=== PATIENT | male | born 1995 | race African-American/Black ===

== ENCOUNTER 2016-12-03 06:42 | Inpatient (IN) | payer OTHER ==
[2016-12-03 06:58] VITALS: BMI 31.8
--- NOTE | 2016-12-03 07:16 | PDOC ---
History of Present Illness <Floresita Barker - Last Filed: 12/03/16 09:09> - History of Present Illness Initial Comments: 12/03/16 07:29 The pt is a 21 year old male with a significant PMH of cortical blindness, cerebral palsy, spastic quadriplegia, seizure disorder, reactive airway disease , YAKELIN, GERD, HTN, strabismus, scoliosis, nonverbal presents to ED brought by ambulance from [facility] for vomiting copious amount of undigested food and cough. He was found to be tachycardia 121. Upon arrival to ED his HR was 116, RR 18, no fever. History was taken from [facility] paper documentation. No family at bedsidebut his mother was contacted. The pt recently moved from [place], [place]. PCP: Dr. Bigg Aleman at [facility] [phone] Mother: Mackenzie Zarate work: [phone] <Marilee Scales - Last Filed: 12/04/16 13:36> - General Chief Complaint: Shortness of Breath Stated Complaint: POSSIBLE INFECTION Time Seen by Provider: 12/03/16 07:16 Past History <Floresita Barker - Last Filed: 12/03/16 09:09> - Psycho/Social/Smoking Cessation Hx Suicidal Ideation: No Smoking History: Unknown if ever smoked Have you smoked in the past 12 months: No Information on smoking cessation initiated: No Hx Alcohol Use: No Drug/Substance Use Hx: No <Marilee Scales - Last Filed: 12/04/16 13:36> - Past Medical History Allergies/Adverse Reactions: Allergies Allergy/AdvReac Type Severity Reaction Status Date / Time chloral hydrate Allergy Verified 12/03/16 09:01 piperacillin sodium Allergy Verified 12/03/16 09:01 [From Zosyn] tazobactam sodium Allergy Verified 12/03/16 09:01 [From Zosyn] Home Medications: Ambulatory Orders Albuterol 0.083% Nebulizer Martha [Ventolin 0.083%] 1 neb NEB QID PRN 12/03/16 Calcium Carbonate/Vitamin D3 [Calcium 600 + D3 Softgel] 1 each PO DAILY Clobetasol Propionate/Emoll [Clobetasol Emollient 0.05% Crm] 15 gm TP DAILY 01/14 Diazepam 2 mg PO TID 12/03/16 Diazepam Rectal Gel [Diastat *Rectal Gel*] 20 mg RC PRN 12/03/16 Fluticasone Propionate [Flovent Diskus] 250 mcg IH DAILY 12/03/16 Gabapentin 400 mg PO BID 12/03/16 Glycopyrrolate in Water/Pf [Glycopyrrolate 1 mg/5 ml-Water] 1 mg IV BID Lacosamide [Vimpat -] 50 mg PO BID 12/03/16 Lactulose 10 gm PO HS 12/03/16 Levetiracetam [Spritam] 1,000 mg PO BID 12/03/16 Montelukast Na [Singulair -] 5 mg PO HS 12/03/16 Phenobarbital 20 mg GT DAILY 12/03/16 Pseudoephedrine HCl 30 mg PO QID PRN 12/03/16 Ranitidine [Zantac -] 150 mg PO DAILY 12/03/16 Scopolamine [Transderm-Scop] 1 each TD Q2D 12/03/16 Sennosides [Senna] 8.6 mg PO DAILY 12/03/16 Review of Systems - Review of Systems Able to Perform ROS?: No <Marilee Scales - Last Filed: 12/04/16 13:36> *Physical Exam - Vital Signs Last Vital Signs Temp Pulse Resp BP Pulse Ox 98.7 F 101 H 18 116/88 100 12/03/16 06:56 12/03/16 08:44 12/03/16 06:56 12/03/16 08:44 12/03/16 06:56 <Floresita Barker - Last Filed: 12/03/16 09:09> - Vital Signs Last Vital Signs Temp Pulse Resp BP Pulse Ox 98.7 F 116 H 18 133/85 100 12/03/16 06:56 12/03/16 06:56 12/03/16 06:56 12/03/16 06:56 12/03/16 06:56 - Physical Exam Comments: 12/03/16 07:35 GENERAL: The patient is awake, alert,nonverbal, not following commands, on ventimask. HEAD: Normal with no signs of trauma. EYES: extraocular movements intact not assessed, sclera anicteric, conjunctiva clear. ENT: moist mucous membranes, drooling saliva. NECK: Trachea midline, full range of motion, supple. LUNGS: Breath sounds equal, coarse, rhonchi B/L, no accessory muscle use. HEART: Regular rate and rhythm, S1, S2 without murmur, rub or gallop. ABDOMEN: Soft, nontender, nondistended, normoactive bowel sounds, no guarding, no rebound, PEG tube. EXTREMITIES: no edema. NEUROLOGICAL: Awake, no facial asymmetry, gait not observed. SKIN: Warm, dry, normal turgor, no rashes, no erythema around PEG tube. <Marilee Scales - Last Filed: 12/04/16 13:36> ED Treatment Course - LABORATORY CBC & Chemistry Diagram: 12/03/16 08:00 12/03/16 08:00 - ADDITIONAL ORDERS Additional order review: Laboratory Results 12/03/16 12/03/16 12/03/16 08:25 08:00 08:00 INR 1.54 H PTT (Actin FS) 39.4 H Puncture Site Right radial ABG pH 7.42 ABG pCO2 at Pt Temp 43.0 ABG pO2 at Pt Temp 112.0 H ABG HCO3 27.3 H ABG O2 Sat (Measured) 98.7 ABG O2 Content 19.7 ABG Base Excess 2.9 H [place] Test Positive Carboxyhemoglobin 1.5 Methemoglobin 0.4 O2 Delivery Device Non-rebreather mask Oxygen Flow Rate 100% PEEP 0.0 Sodium 139 Potassium 3.9 Chloride 101 Carbon Dioxide 28 Anion Gap 10 BUN 11 Creatinine 0.4 L Creat Clearance w eGFR > 60 Random Glucose 106 Lactic Acid Calcium 9.3 Total Bilirubin 0.3 AST 33 ALT 79 H Alkaline Phosphatase 202 H Total Protein 7.7 Albumin 3.7 12/03/16 07:25 INR PTT (Actin FS) Puncture Site ABG pH ABG pCO2 at Pt Temp ABG pO2 at Pt Temp ABG HCO3 ABG O2 Sat (Measured) ABG O2 Content ABG Base Excess [place] Test Carboxyhemoglobin Methemoglobin O2 Delivery Device Oxygen Flow Rate PEEP Sodium Potassium Chloride Carbon Dioxide Anion Gap BUN Creatinine Creat Clearance w eGFR Random Glucose Lactic Acid 0.652 Calcium Total Bilirubin AST ALT Alkaline Phosphatase Total Protein Albumin 12/03/16 08:00 Influenza Types A,B Antigen (CHLOÉ) - Final Nasopharyngeal Swab - Final 12/03/16 08:00 RBC 4.38 MCV 96.4 H MCHC 33.5 RDW 14.5 MPV 7.5 Neutrophils % 74.0 Lymphocytes % 19.0 Monocytes % 4.0 Eosinophils % 2.6 Basophils % 0.4 - Medications Given in the ED: ED Medications Discontinued Medications Generic Name Dose Route Start Last Admin Trade Name Lazaro PRN Reason Stop Dose Admin Sodium Chloride 1,000 mls @ 1,000 mls/hr 12/03/16 08:02 12/03/16 08:49 Normal Saline - IV 12/03/16 09:01 1,000 mls/hr ASDIR STA Administration <Floresita Barker - Last Filed: 12/03/16 09:09> - LABORATORY CBC & Chemistry Diagram: 12/04/16 08:00 12/04/16 08:00 <Marilee Scales - Last Filed: 12/04/16 13:36> Medical Decision Making - Medical Decision Making 12/03/16 08:37 The pt is a 21 year old male who presents from [facility]. Differential diagnosis include: aspiration pneumonia, exacerbation of chronic lung disease, PE, influenza. WE started sepsis protocol. His BP decreased to 80 systolic. We added 1L of NS. We also contacted nurse supervisor cutting department from [facility] to obtain more information about his PMH, allergies. Waiting for fax. 12/03/16 09:03 Influenza A&B is absent. ABGs reviewed. CXR shows possible infiltrate and distended abdomen. We ordered CT chest and abdomen without contrast. Elevated WBC, no anemia. We received fax docummentation from [facility]. The pt will be given Levaquin and Vancomycin IV ONCE. <Marilee Scales - Last Filed: 12/04/16 13:36> *DC/Admit/Observation/Transfer <Floresita Barker - Last Filed: 12/03/16 09:09> - Discharge Dispostion Admit: Yes <Marilee Scales - Last Filed: 12/04/16 13:36> Diagnosis at time of Disposition: Shortness of breath - Discharge Dispostion Condition at time of disposition: Fair - Referrals
[2016-12-03] MEDS ORDERED: SODIUM CHLORIDE 1,000 ML IV STA (08:02)
[2016-12-03 08:24] LABS: BASOPHIL 0.4 % (0-2.0); EOSINOPHIL 2.6 % (0-4.5); MCH 32.3 pg (25.7-33.7); MCHC 33.5 g/dl (32.0-35.9); MEAN CELL VOLUME 96.4 fl (80-96); MEAN PLT VOLUME 7.5 fl (7.5-11.1); PLATELET COUNT 314 K/MM3 (134-434); RDW 14.5 % (11.9-15.9); WHITE BLOOD COUNT 11.6 K/mm3 (4.0-10.0)
[2016-12-03 08:32] LABS: ALLENS TEST POSITIVE; ART PUNCT SITE RIGHT RADIAL; ARTERIAL BLD GAS O2 SATURATION 98.7 % (90-98.9); ARTERIAL BLOOD GAS BASE EXCESS 2.9 meq/l (-2-2); ARTERIAL BLOOD GAS HCO3 27.3 meq/L (22-26); ARTERIAL BLOOD GAS pH 7.42 (7.35-7.45); LPM/O2% 100%; METHEMOGLOBIN 0.4 % (0.4-1.5); PT. ON O2? YES; TYPE OF O2 NON-REBREATHER MASK
--- NOTE | 2016-12-03 08:40 | PDOC ---
Attending Attestation - Resident Resident Name: Marilee Scales - ED Attending Attestation I have performed the following: I have examined & evaluated the patient, The case was reviewed & discussed with the resident, I agree w/resident's findings & plan, Exceptions are as noted - HPI HPI: 12/03/16 08:31 21-year-old male with history of severe MR and developmental delay from [facility] with tachycardia and difficulty breathing after having copious vomiting this morning. - Physicial Exam PE: 12/03/16 08:32 Tachycardia, blood pressure initially normal, 90 systolic on my evaluation nonverbal coarse breath sounds b/l, R worse than L - Critical Care Time Total Critical Care Time: 30 Critical Care Statement: The care of this patient involved high complexity decision making to prevent further life threatening deterioration of the patient 's condition and/or to evalute & treat vital organ system(s) failure or risk of failure. - Medical Decision Making 12/03/16 08:40 Patient seen and evaluated with the resident. I agree with the overall evaluation, assessment, and management with the following summary of visit: 21-year-old male with severe MR, PEG tube, DNR order sent with respiratory distress and tachycardia. Possible aspiration pneumonia, has chronic lung disease and may be acute on chronic exacerbation of this as well. Sepsis protocol initiated IV fluid resuscitation Broad-spectrum antibiotics Admission Heart Score/ECG Review #1 ECG reviewed & interpreted by me at: 07:48 General ECG Interpretation: Sinus Rhythm (tachy at 112), Normal Intervals ( [id number]), No acute ischemic changes
[2016-12-03 08:44] LABS: ALBUMIN 3.7 g/dl (3.4-5.0); ANION GAP 10 (8-16); BILIRUBIN,TOTAL 0.3 mg/dL (0.2-1.0); CALCIUM 9.3 mg/dL (8.5-10.1); CO2 28 mmol/L (21-32); GLUCOSE,RANDOM 106 mg/dL (74-106); SGOT/AST 33 U/L (15-37); SGPT/ALT 79 U/L (12-78); TOT PROT 7.7 g/dl (6.4-8.2)
[2016-12-03 08:46] LABS: ALK PHOS 202 U/L (45-117); CREATININE 0.4 mg/dL (0.7-1.3); INR 1.54 (0.82-1.09); PROTHROMBIN TIME (PATIENT) 17.1 SEC (9.98-11.88)
[2016-12-03 08:48] LABS: ACTIVATED PTT 39.4 SECONDS (26.9-34.4)
[2016-12-03] MEDS ORDERED: LEVOFLOXACIN 750 MG IVPB 150 ML IVPB ONE ×2 (09:00→09:27)
[2016-12-03] MEDS ORDERED: VANCOMYCIN 1 GRAM (PRE-DOCKED) 1,000 MG/250 ML BAG IVPB ONE (09:01)
[2016-12-03] MEDS ORDERED: VANCOMYCIN 1 GRAM (PRE-DOCKED) 250 ML IVPB ONE (10:56)
--- NOTE | 2016-12-03 12:05 | HP ---
CHIEF COMPLAINT: Vomiting PCP: Dr. Pride ([facility]) [phone] HISTORY OF PRESENT ILLNESS: This is a 21 year old male with a history of cortical blindness, cerebral palsy, spastic quadriplegia, seizure disorder, reactive airway disease, YAKELIN, GERD, HTN, strabismus, scoliosis, nonverbal at baseline transferred from his SNF to the ED today for vomiting and cough. ER course was notable for: (1) Tachycardia - 121 bpm (2) WBC mildly elevated at 11.6 (3) CT Chest: Moderate consolidation at the right base with air bronchogram; appears to involve RLL and protions of RML. Small consolidation medially at left base. (4) CTAP: Distended colon with air and diffuse air-fluid levels and distention of rectum suggesting diarrheal illness or ileus (5) Rapid influenza negative Recent Travel: None PAST MEDICAL HISTORY: As above PAST SURGICAL HISTORY: PEG Social History: [facility] resident Smoking: None Alcohol: None Family History: Non-contributory ot Allergies chloral hydrate Allergy (Verified 12/03/16 09:01) piperacillin sodium [From Zosyn] Allergy (Verified 12/03/16 09:01) tazobactam sodium [From Zosyn] Allergy (Verified 12/03/16 09:01) REVIEW OF SYSTEMS Patient is unable to participate. Staff member at bedside reports vomiting x 2 this morning. PHYSICAL EXAMINATION Vital Signs - 24 hr 12/03/16 12/03/16 06:56 08:44 Temperature 98.7 F Pulse Rate 116 H Pulse Rate [ 101 H Apical] Respiratory 18 Rate Blood Pressure 133/85 Blood Pressure 116/88 [Arm] O2 Sat by Pulse 100 Oximetry (%) GENERAL: Lethargic. HEAD: Normal with no signs of trauma. EYES: Pupils equal, round and reactive to light, extraocular movements intact, sclera anicteric, conjunctiva clear. No lid lag. EARS, NOSE, THROAT: Ears normal, nares patent, oropharynx clear without exudates. Moist mucous membranes. NECK: Normal range of motion, supple without lymphadenopathy, JVD, or masses. LUNGS: Ronchi right base with scattered wheezes. No accessory muscle use. HEART: Regular rate and rhythm, normal S1 and S2 without murmur, rub or gallop. ABDOMEN: Soft, nontender, not distended, normoactive bowel sounds, no guarding, no rebound, no masses. No hepatomegaly or splenomegaly. PEG in place, no surrounding erythema. MUSCULOSKELETAL: Contracted all 4 extremities. No bony deformities or tenderness. No CVA tenderness. UPPER EXTREMITIES: 2+ pulses, warm, well-perfused. No cyanosis. No clubbing. No peripheral edema. LOWER EXTREMITIES: 2+ pulses, warm, well-perfused. No calf tenderness. No peripheral edema. NEUROLOGICAL: GCS E 2 V 1 M 4 = 7. SKIN: Warm, dry, normal turgor, no rashes or lesions noted, normal capillary refill. Laboratory Results - last 24 hr 12/03/16 12/03/16 12/03/16 07:25 08:00 08:00 WBC 11.6 H RBC 4.38 Hgb 14.2 Hct 42.3 MCV 96.4 H MCHC 33.5 RDW 14.5 Plt Count 314 MPV 7.5 Neutrophils % 74.0 Lymphocytes % 19.0 Monocytes % 4.0 Eosinophils % 2.6 Basophils % 0.4 INR 1.54 H PTT (Actin FS) 39.4 H Puncture Site ABG pH ABG pCO2 at Pt Temp ABG pO2 at Pt Temp ABG HCO3 ABG O2 Sat (Measured) ABG O2 Content ABG Base Excess [place] Test Carboxyhemoglobin Methemoglobin O2 Delivery Device Oxygen Flow Rate PEEP Sodium Potassium Chloride Carbon Dioxide Anion Gap BUN Creatinine Creat Clearance w eGFR Random Glucose Lactic Acid 0.652 Calcium Total Bilirubin AST ALT Alkaline Phosphatase Total Protein Albumin 12/03/16 12/03/16 08:00 08:25 WBC RBC Hgb Hct MCV MCHC RDW Plt Count MPV Neutrophils % Lymphocytes % Monocytes % Eosinophils % Basophils % INR PTT (Actin FS) Puncture Site Right radial ABG pH 7.42 ABG pCO2 at Pt Temp 43.0 ABG pO2 at Pt Temp 112.0 H ABG HCO3 27.3 H ABG O2 Sat (Measured) 98.7 ABG O2 Content 19.7 ABG Base Excess 2.9 H [place] Test Positive Carboxyhemoglobin 1.5 Methemoglobin 0.4 O2 Delivery Device Non-rebreather mask Oxygen Flow Rate 100% PEEP 0.0 Sodium 139 Potassium 3.9 Chloride 101 Carbon Dioxide 28 Anion Gap 10 BUN 11 Creatinine 0.4 L Creat Clearance w eGFR > 60 Random Glucose 106 Lactic Acid Calcium 9.3 Total Bilirubin 0.3 AST 33 ALT 79 H Alkaline Phosphatase 202 H Total Protein 7.7 Albumin 3.7 ASSESSMENT/PLAN: 21 year old male with vomiting and PNA, likely aspiration. Problem List - Problem (1) Pneumonia Assessment/Plan: -Likely aspiration -Continue supplemental O2 as needed -Levaquin/Flagyl (PCN allergy) to cover likely aspiration PNA; weight-based dosing given that patient is 36kg -Follow fever/WBC curve -Follow up blood cultures Code(s): J18.9 - PNEUMONIA, UNSPECIFIED ORGANISM (2) Seizure disorder Assessment/Plan: -Continue home Valium/Keppra/Vimpat/phenobarbital -Diastat prn seizure Code(s): G40.909 - EPILEPSY, UNSP, NOT INTRACTABLE, WITHOUT STATUS EPILEPTICUS (3) Vomiting Assessment/Plan: -Zofran 4mg IVP prn -Hold feeds for now -Obtain followup AXR (possible ileus) Code(s): R11.10 - VOMITING, UNSPECIFIED (4) Reactive airway disease Assessment/Plan: -Albuterol nebs q6h prn wheezing Code(s): J45.909 - UNSPECIFIED ASTHMA, UNCOMPLICATED (5) DVT prophylaxis Assessment/Plan: -Lovenox 30mg sq daily Code(s): FUT7357 - Visit type - Emergency Visit Emergency Visit: Yes ED Registration Date: 12/03/16 Care time: The patient presented to the Emergency Department on the above date and was hospitalized for further evaluation of their emergent condition. - New Patient This patient is new to me today: Yes Date on this admission: 12/03/16 - Critical Care Critical Care patient: No
[2016-12-03] MEDS ORDERED: PSEUDOEPHEDRINE HCL 30 MG TABLET PO PRN (12:23)
[2016-12-03] MEDS ORDERED: ALBUTEROL SO4 0.083% IH SOL 2.5 MG/3 ML VIAL.NEB. NEB PRN (12:23)
[2016-12-03] MEDS ORDERED: DIAZEPAM ACUDIAL 12.5-15-20 20 MG KIT RC SCH (12:30)
--- NOTE | 2016-12-03 13:24 | EKG ---
Test Reason : Blood Pressure : / mmHG Vent. Rate : 112 BPM Atrial Rate : 112 BPM P-R Int : 148 ms QRS Dur : 096 ms QT Int : 322 ms P-R-T Axes : 028 047 005 degrees QTc Int : 439 ms SINUS TACHYCARDIA INFERIOR INFARCT , AGE UNDETERMINED ABNORMAL ECG NO PREVIOUS ECGS AVAILABLE Confirmed by HETAL SHIRLEY, ZOILA ([id number]) on 12/03/2016 1:23:39 PM Referred By: Confirmed By:ZOILA FONG MD
[2016-12-03 14:32] LABS: URINE APPEARANCE SLCLOUDY; URINE BILIRUBIN NEGATIVE (NEGATIVE); URINE BLOOD NEGATIVE (NEGATIVE); URINE COLOR YELLOW; URINE GLUCOSE (UA) NEGATIVE (NEGATIVE); URINE KETONE 1+ (NEGATIVE); URINE LEUK ESTERASE NEGATIVE (NEGATIVE); URINE NITRITE NEGATIVE (NEGATIVE); URINE PROTEIN NEGATIVE (NEGATIVE); URINE UROBILINOGEN NEGATIVE E.U./dl (0.2-1.0)
[2016-12-03] MEDS ORDERED: ONDANSETRON 4 MG/2 ML VIAL IVPUSH PRN (15:10)
--- NOTE | 2016-12-03 15:58 | PN ---
Progress Note (short form) - Note Progress Note: ID consult dictated imp/reccd 21 year old man from [facility] admitted with vomiting and chest congestion ct scan show RLL?RML infiltrate and distended colon ?ileus zosyn allergy (unspecified) agree with levaquin/flagyl- for aspiration pneumonia- he looks comfortable d/w admitting hospitalist
[2016-12-03] MEDS: diazePAM 2 MG TABLET PO SCH ×2 (16:10→22:53)
[2016-12-03] MEDS ORDERED: CLINDAMYCIN IVPB 300 MG in DEXTROSE 5%-WATER - 48 ML IVPB SCH (18:00)
[2016-12-03] MEDS ORDERED: PT OWN MED DRAWER 7, Y5N ONE (18:15)
[2016-12-03] MEDS: METRONIDAZOLE PREMIXED IVPB 50 ML IVPB SCH ×2 (18:21→22:52)
[2016-12-03] MEDS: SCOPOLAMINE HYDROBROMIDE 1 PATCH PATCH.TD72 TD SCH (18:22)
[2016-12-03] MEDS ORDERED: ONDANSETRON 4 MG/2 ML VIAL IVPB PRN (20:11)
[2016-12-03] MEDS ORDERED: [UNRECOGNIZED DRUG - OTHER] IV SCH (22:00)
[2016-12-03] MEDS ORDERED: GLYCOPYRROLATE IV SCH (22:00)
[2016-12-03] MEDS: levETIRAcetam 500 MG TABLET (FP) PO SCH (22:53)
[2016-12-03] MEDS: LACOSAMIDE 50 MG TABLET PO SCH (22:53)
[2016-12-03] MEDS: MONTELUKAST NA 5 MG TAB.CHEW PO SCH (22:53)
--- NOTE | 2016-12-03 22:55 | CONS ---
DATE OF CONSULTATION: INFECTIOUS DISEASE CONSULTATION REQUESTING PHYSICIAN: Hospitalist Service CONSULTING PHYSICIAN: Alexandra Valdez M.D. HISTORY OF PRESENT ILLNESS: This is a 21-year-old man who lives in the [facility]. He has been there for about 1 year. He suffers from developmental delays. He has a history of cortical blindness, cerebral palsy, spastic quadriplegia and seizures. He started vomiting this morning at the assisted and was noted to become tachycardic. They were concerned, and sent him to the emergency room for evaluation. In the ER, he had a white count of 11.6. We sent him for a CAT scan of his chest, abdomen, and pelvis. He had a right lower lobe, middle lobe infiltrate and with an air bronchogram, and on CAT scan of his abdomen and pelvis he was noted to have air fluid levels. He was given Levaquin and vancomycin in the emergency room. He is now resting comfortably, he cannot contribute to any of the history. PAST MEDICAL HISTORY: As stated before, is notable for cortical blindness, cerebral palsy, spastic quadriplegia, seizure disorder, reactive airway disease, obstructive sleep apnea, GERD, hypertension, strabismus, scoliosis . SURGICAL HISTORY: Notable for PEG tube. SOCIAL HISTORY: He has been at the [facility] for 1 year now. FAMILY HISTORY: Not available. ALLERGIES: CHLOROHYDRATE and PIPERACILLIN-TAZOBACTAM, the nature of the allergy could not be determined from the [facility] forms. REVIEW OF SYSTEMS: Per the nursing staff from [facility], he vomited twice this morning . There are no reports of diarrhea . PHYSICAL EXAMINATION: Vital signs: Temperature 98.7, pulse 101, blood pressure 116/88, respiratory rate 18, he is saturating 100%. HEENT: Normocephalic. Eyes are anicteric. General: He is resting comfortably. Lungs: Diminished breath sounds at the bases. Heart: Regular rate and rhythm. Abdomen: Soft. He has a G-tube. Extremities: Without edema. LABORATORY: White count 7.6, hemoglobin 314, BUN and creatinine are 11 and 0.4. Urinalysis is negative. Cultures are pending. Influenza screen is negative. This is a 21-year-old man with developmental disabilities from the [facility] admitted with vomiting x2 and chest congestion. He has CAT scan evidence of pneumonia, a ZOSYN allergy that is unspecified. He received vancomycin, Levaquin in the emergency room. Would agree with Levaquin and Flagyl. This would provide coverage for aspiration pneumonia. He looks quite comfortable at this time. He does not appear to be in any distress. His care was discussed with the admitting hospitalist. ALEXANDRA VALDEZ M.D. [id number]
[2016-12-04] MEDS: METRONIDAZOLE PREMIXED IVPB 50 ML IVPB SCH ×2 (04:30→10:00)
[2016-12-04] MEDS: diazePAM 2 MG TABLET PO SCH ×3 (05:37→22:53)
[2016-12-04 08:29] LABS: MCH 32.3 pg (25.7-33.7); MCHC 33.2 g/dl (32.0-35.9); MEAN CELL VOLUME 97.3 fl (80-96); MEAN PLT VOLUME 7.5 fl (7.5-11.1); PLATELET COUNT 281 K/MM3 (134-434); RDW 14.5 % (11.9-15.9); WHITE BLOOD COUNT 23.8 K/mm3 (4.0-10.0)
[2016-12-04 09:06] LABS: ALBUMIN 3.4 g/dl (3.4-5.0); ALK PHOS 189 U/L (45-117); ANION GAP 12 (8-16); BILIRUBIN,TOTAL 0.5 mg/dL (0.2-1.0); CALCIUM 8.8 mg/dL (8.5-10.1); CO2 22 mmol/L (21-32); CREATININE 0.4 mg/dL (0.7-1.3); GLUCOSE,RANDOM 76 mg/dL (74-106); SGPT/ALT 61 U/L (12-78); TOT PROT 7.2 g/dl (6.4-8.2)
[2016-12-04 09:12] LABS: SGOT/AST 34 U/L (15-37)
[2016-12-04] MEDS ORDERED: LEVOFLOXACIN 500 MG IVPB 100 ML IVPB SCH (10:00)
[2016-12-04] MEDS ORDERED: PATIENT'S OWN MEDICATION (NON-FORMULARY) (Clobetasol Propionate/Emoll [Clobetasol Emollien TP SCH (10:00)
[2016-12-04] MEDS ORDERED: PATIENT'S OWN MEDICATION (NON-FORMULARY) (Fluticasone Propionate [Flovent Diskus] 250 MCG) IH SCH (10:00)
[2016-12-04] MEDS ORDERED: levETIRAcetam 500 MG/5 ML INJECTION VIAL IVPB SCH (10:00)
[2016-12-04] MEDS: levETIRAcetam 500 MG TABLET (FP) PO SCH ×2 (10:29→22:54)
[2016-12-04] MEDS: LACOSAMIDE 50 MG TABLET PO SCH ×2 (10:30→22:53)
[2016-12-04] MEDS: PHENobarbital 20 MG/5 ML UNIT-DOSE CUP GT SCH (10:30)
[2016-12-04] MEDS: ENOXAPARIN NA (PORCINE) 30 MG/0.3 ML DISP.SYRIN SQ SCH (10:30)
[2016-12-04] MEDS: RANITIDINE HCL 150 MG TABLET (FP) PO SCH (10:30)
--- NOTE | 2016-12-04 14:09 | PN ---
Progress Note, Physician Chief Complaint: ID Concern for leukocytosis despite Levofloxacin and metronidazole Remains afebrile - Current Medication List Current Medications: Active Medications Acetaminophen (Tylenol Oral Solution -) 650 mg PO Q6H PRN PRN Reason: FEVER OR PAIN Albuterol Sulfate (Ventolin 0.083% Nebulizer Soln -) 1 amp NEB QID PRN PRN Reason: ASTHMA Diazepam (Diastat Rectal Gel -) 20 mg RC PRN AUNG Diazepam (Valium -) 2 mg PO TID [facility] Last Admin: 12/04/16 05:37 Dose: 2 mg Enoxaparin Sodium (Lovenox -) 30 mg SQ DAILY [facility] Last Admin: 12/04/16 10:30 Dose: 30 mg Metronidazole (Flagyl 250mg Premixed Ivpb -) 50 mls @ 50 mls/hr IVPB Q6H-IV [facility] Last Admin: 12/04/16 10:00 Dose: 50 mls/hr Levofloxacin (Levaquin 500 Mg Premixed Ivpb -) 100 mls @ 100 mls/hr IVPB DAILY [facility] Last Admin: 12/04/16 11:00 Dose: 100 mls/hr Lacosamide (Vimpat -) 50 mg PO BID [facility] Last Admin: 12/04/16 10:30 Dose: 50 mg Levetiracetam (Keppra -) 1,000 mg PO BID [facility] Last Admin: 12/04/16 10:29 Dose: 1,000 mg Mometasone Furoate (Asmanex 220mcg -) 1 puff [facility] Montelukast Sodium (Singulair -) 5 mg PO HS [facility] Last Admin: 12/03/16 22:53 Dose: 5 mg Non-Formulary Medication (Clobetasol Propionate/Emoll [Clobetasol Emollient 0.05 % Crm]) 15 gm TP DAILY [facility] Non-Formulary Medication (Glycopyrrolate In Water/Pf [Glycopyrrolate 1 Mg/5 Ml- Water]) 1 mg IV BID [facility] Ondansetron HCl (Zofran Injection) 4 mg IVPB Q6H PRN PRN Reason: NAUSEA Phenobarbital (Phenobarbital Liquid -) 20 mg GT DAILY [facility] Last Admin: 12/04/16 10:30 Dose: 20 mg Pseudoephedrine HCl (Sudafed -) 30 mg PO QID PRN PRN Reason: CONGESTION Ranitidine HCl (Zantac -) 150 mg PO DAILY [facility] Last Admin: 12/04/16 10:30 Dose: 150 mg Scopolamine HBr (Transderm-Scop -) 1 patch TD Q72H [facility] Last Admin: 12/03/16 18:22 Dose: 1 patch - Objective Vital Signs: Vital Signs Temperature 99 F 12/04/16 13:52 Pulse Rate 92 H 12/04/16 13:52 Respiratory Rate 20 12/04/16 13:52 Blood Pressure 123/72 12/04/16 13:52 O2 Sat by Pulse Oximetry (%) 98 12/04/16 10:28 Constitutional: Yes: Mild Distress Neck: Yes: WNL, Supple Cardiovascular: Yes: Regular Rate and Rhythm, S1, S2 Respiratory: Yes: WNL, Regular, CTA Bilaterally, Rhonchi Gastrointestinal: Yes: WNL, Normal Bowel Sounds, Soft. No: Tenderness Edema: No Labs: CBC, BMP 12/04/16 08:00 12/04/16 08:00 INR, PTT INR 1.54 (0.82-1.09) H 12/03/16 08:00 Assessment/Plan Microbiology 12/03/16 08:00 Nasopharyngeal Swab Influenza Types A,B Antigen (CHLOÉ) - Final 12/03/16 08:00 Nasopharyngeal Swab - Final 12/03/16 08:00 Blood - Peripheral Venous Blood Culture - Preliminary NO GROWTH OBTAINED AFTER 24 HOURS, INCUBATION TO CONTINUE FOR 4 DAYS. 12/03/16 08:00 Blood - Peripheral Venous Blood Culture - Preliminary NO GROWTH OBTAINED AFTER 24 HOURS, INCUBATION TO CONTINUE FOR 4 DAYS. Laboratory Tests 12/03/16 12/04/16 08:00 08:00 WBC 11.6 H 23.8 H D Hgb 12.9 Hct 38.9 Plt Count 281 Assessment Treat for possibility of Health care asscociated pneumonia with aspiration Plan Doripenem but be mindful for the potential side effect of seizures PCN allergy nature of which unknown Meggan SHIRLEY
--- NOTE | 2016-12-04 17:06 | PN ---
Physical Exam: SUBJECTIVE: Patient seen and examined, non verbal; resting comfortably; OBJECTIVE: Vital Signs Period Temp Pulse Resp BP Sys/Jay Pulse Ox Last 24 Hr 98.6 F-99.7 F 92-113 16-20 114-140/57-79 98-98 GENERAL: The patient is non verbal; sever cognitive impairment; LUNGS: very course respirations on inspiratory and expiratory b/l HEART: Regular rate and rhythm, S1, S2 without murmur, rub or gallop. ABDOMEN: Soft, nontender, nondistended, normoactive bowel sounds, no guarding, no rebound, no hepatosplenomegaly, no masses. PEG tube ; clean dry intact EXTREMITIES: 2+ pulses, warm, well-perfused, no edema. contracted; short limbs NEUROLOGICAL: severe MR Laboratory Results - last 24 hr 12/04/16 12/04/16 08:00 08:00 WBC 23.8 H D RBC 3.99 L Hgb 12.9 Hct 38.9 MCV 97.3 H MCHC 33.2 RDW 14.5 Plt Count 281 MPV 7.5 Neutrophils % 81.0 Lymphocytes % 13.0 D Monocytes % 5.0 Eosinophils % 1.0 Differential Comment Manual diff done Sodium 141 Potassium 4.0 Chloride 107 Carbon Dioxide 22 D Anion Gap 12 BUN 6 L D Creatinine 0.4 L Creat Clearance w eGFR > 60 Random Glucose 76 D Calcium 8.8 Total Bilirubin 0.5 D AST 34 ALT 61 D Alkaline Phosphatase 189 H Total Protein 7.2 Albumin 3.4 Active Medications Generic Name Dose Route Start Last Admin Trade Name Freq PRN Reason Stop Dose Admin Acetaminophen 650 mg 12/03/16 20:13 Tylenol Oral Solution - PO Q6H PRN FEVER OR PAIN Albuterol Sulfate 1 amp 12/03/16 12:23 Ventolin 0.083% Nebulizer Soln - NEB QID PRN ASTHMA Diazepam 20 mg 12/03/16 12:30 Diastat Rectal Gel - RC PRN GURVINDER Diazepam 2 mg 12/03/16 14:00 12/04/16 15:00 Valium - PO 2 mg TID GURVINDER Administration Enoxaparin Sodium 30 mg 12/04/16 10:00 12/04/16 10:30 Lovenox - SQ 30 mg DAILY GURVINDER Administration Doripenem 500 mg/ Sodium 100 mls @ 100 mls/hr 12/04/16 16:00 Chloride IVPB Q8H-IV GURVINDER Protocol Lacosamide 50 mg 12/03/16 22:00 12/04/16 10:30 Vimpat - PO 50 mg BID GURVINDER Administration Levetiracetam 1,000 mg 12/03/16 22:00 12/04/16 10:29 Keppra - PO 1,000 mg BID GURVINDER Administration Mometasone Furoate 1 puff 12/04/16 22:00 Asmanex 220mcg - IH HS GURVINDER Montelukast Sodium 5 mg 12/03/16 22:00 12/03/16 22:53 Singulair - PO 5 mg HS GURVINDER Administration Non-Formulary Medication 15 gm 12/04/16 10:00 Clobetasol Propionate/Emoll [Clobetasol Emollient 0.05% Crm] TP DAILY GURVINDER Non-Formulary Medication 1 mg 12/03/16 22:00 Glycopyrrolate In Water/Pf [Glycopyrrolate 1 Mg/5 Ml-Water] IV BID GURVINDER Ondansetron HCl 4 mg 12/03/16 20:11 Zofran Injection IVPB Q6H PRN NAUSEA Phenobarbital 20 mg 12/04/16 10:00 12/04/16 10:30 Phenobarbital Liquid - GT 20 mg DAILY GURVINDER Administration Pseudoephedrine HCl 30 mg 12/03/16 12:23 Sudafed - PO QID PRN CONGESTION Ranitidine HCl 150 mg 12/04/16 10:00 12/04/16 10:30 Zantac - PO 150 mg DAILY GUVRINDER Administration Scopolamine HBr 1 patch 12/03/16 17:00 12/03/16 18:22 Transderm-Scop - TD 1 patch Q72H GURVINDER Administration ASSESSMENT/PLAN: This is a 21 year old male with PMHx cortical blindness, cerebral palsy, spastic quadriplegia, seizure disorder, reactive airway disease, YAKELIN, GERD, HTN , strabismus, scoliosis, nonverbal presents to ED brought by ambulance from [facility] for vomiting copious amount of undigested food and cough. Admitted for sepsis secondary to aspiration pneumonia. #sepsis secondary to aspiration pneumonia: -sepsis protocol; IVF; cbc. bmp, la -tachycardic, afebrile, on NC 3L sat 96 -wbc trended up significantly from yesterday; 11->23 -blood culture pending -patient seen by ID; increase antibiotic coverage to ertapenam; due to increased risk of HAP infection #seizure disorder: -keppra 1,000mg bid -phenobarbitol 20mg gtqd -vimpat 50m gbid #reactive airway disease: -Albuterol Sulfate 1amp q4h gurvinder -singulair #gerd: -ranitidine 150mg po daily FEN: Fluids: d5w 83mls hr Electrolytes:wnl Diet: npo VTE prophylaxis: lovenox Disposition: need cont IV antibiotics Visit type - Emergency Visit Emergency Visit: Yes ED Registration Date: 12/03/16 Care time: The patient presented to the Emergency Department on the above date and was hospitalized for further evaluation of their emergent condition. - New Patient This patient is new to me today: Yes Date on this admission: 12/04/16 - Critical Care Critical Care patient: No
--- NOTE | 2016-12-04 17:21 | PN ---
Teaching Attending Note Name of Resident: Josselyn Andrade ATTENDING PHYSICIAN STATEMENT I saw and evaluated the patient. I reviewed the resident's note and discussed the case with the resident. I agree with the resident's findings and plan as documented. SUBJECTIVE:resting comfortable. non productive cough OBJECTIVE: Last Vital Signs Temp Pulse Resp BP Pulse Ox 99.7 F H 95 H 16 114/57 98 12/04/16 16:55 12/04/16 16:55 12/04/16 16:55 12/04/16 16:55 12/04/16 10:28 General nonverbal. resting comfortable CV S1 S2 RRR no murmur/rub/gallop Lungs coarse breath sounds diffusely. mild wheezing anteriorly abdomen +distended no BS. non tender +PEG in LUQ ASSESSMENT AND PLAN: 21yo M with PMH CP, blind, functional quadriplegia, seizure and HTN presented to the ER and was admitted for further evaluation of their emergent condition 1. Aspiration PNA- afebrile. requiring supplemental oxygen to maintain spO2 >90% . leukocytosis trending up and abx switched to doripenem. can lower seizure threshold. monitor closely. aspiration precautions. f/u cx 2. ileus- no BM reported by RN. will monitor. repeat AXR. start D5NS @ 83cc./H. hold TF at this time. will need swallow eval 3. seizure- no seizure like activity. monitor with initiation of abx. cont home management 4. DVT ppx- start lovenox
[2016-12-04] MEDS: DORIPENEM 500 MG in SODIUM CHLORIDE 100 ML IVPB SCH (17:41)
[2016-12-04] MEDS: MOMETASONE FUROATE 220 MCG/IH INHALER IH SCH (22:54)
[2016-12-04] MEDS: MONTELUKAST NA 5 MG TAB.CHEW PO SCH (22:55)
[2016-12-04] MEDS: ACETAMINOPHEN 650 MG/20.3 ML ORAL SOLUTION (CUPS) PO PRN (23:11)
[2016-12-04] MEDS ORDERED: PT OWN MED DRAWER 7, Y5N ONE (23:32)
[2016-12-05] MEDS: DORIPENEM 500 MG in SODIUM CHLORIDE 100 ML IVPB SCH ×3 (02:53→17:27)
[2016-12-05] MEDS: DEXTROSE 5%-NORMAL SALINE 1,000 ML IV SCH ×2 (05:45→20:00)
[2016-12-05] MEDS: diazePAM 2 MG TABLET PO SCH ×3 (05:45→22:23)
[2016-12-05 07:40] LABS: BASOPHIL 0.8 % (0-2.0); EOSINOPHIL 1.9 % (0-4.5); MCH 32.4 pg (25.7-33.7); MEAN CELL VOLUME 98.4 fl (80-96); MEAN PLT VOLUME 8.4 fl (7.5-11.1); NEUTROPHILS 58.1 % (42.8-82.8); RDW 14.1 % (11.9-15.9); WHITE BLOOD COUNT 12.4 K/mm3 (4.0-10.0)
[2016-12-05 08:04] LABS: ALBUMIN 3.2 g/dl (3.4-5.0); ANION GAP 10 (8-16); CALCIUM 8.3 mg/dL (8.5-10.1); CO2 23 mmol/L (21-32); GLUCOSE,RANDOM 94 mg/dL (74-106)
[2016-12-05 08:08] LABS: ALK PHOS 159 U/L (45-117); BILIRUBIN,TOTAL 0.7 mg/dL (0.2-1.0); COCKROFT - GAULT 151.19; CREATININE 0.4 mg/dL (0.7-1.3); SGPT/ALT 50 U/L (12-78); TOT PROT 6.7 g/dl (6.4-8.2)
[2016-12-05 08:27] LABS: SGOT/AST 33 U/L (15-37)
[2016-12-05 09:47] LABS: PLATELET COUNT 217 K/MM3 (134-434)
[2016-12-05 09:48] LABS: PLATELET COMMENT2 NO CLOTTING DETECTED
[2016-12-05] MEDS ORDERED: SCOPOLAMINE HYDROBROMIDE 1 PATCH PATCH.TD72 TD SCH (10:00)
[2016-12-05] MEDS ORDERED: PT OWN MED DRAWER 7, Y5N ONE (10:35)
[2016-12-05] MEDS: PHENobarbital 20 MG/5 ML UNIT-DOSE CUP GT SCH (10:58)
[2016-12-05] MEDS: ENOXAPARIN NA (PORCINE) 30 MG/0.3 ML DISP.SYRIN SQ SCH (10:58)
[2016-12-05] MEDS: levETIRAcetam 500 MG TABLET (FP) PO SCH ×2 (10:58→22:23)
[2016-12-05] MEDS: RANITIDINE HCL 150 MG TABLET (FP) PO SCH (10:59)
[2016-12-05] MEDS: LACOSAMIDE 50 MG TABLET PO SCH ×2 (10:59→22:23)
--- NOTE | 2016-12-05 14:50 | PN ---
Progress Note, Physician Chief Complaint: ID Looks quire comfortable today Doripenem day 1 - Current Medication List Current Medications: Active Medications Acetaminophen (Tylenol Oral Solution -) 650 mg PO Q6H PRN PRN Reason: FEVER OR PAIN Last Admin: 12/04/16 23:11 Dose: 650 mg Albuterol Sulfate (Ventolin 0.083% Nebulizer Soln -) 1 amp NEB QID PRN PRN Reason: ASTHMA Diazepam (Diastat Rectal Gel -) 20 mg RC PRN AUNG Diazepam (Valium -) 2 mg PO TID [facility] Last Admin: 12/05/16 05:45 Dose: 2 mg Enoxaparin Sodium (Lovenox -) 30 mg SQ DAILY [facility] Last Admin: 12/05/16 10:58 Dose: 30 mg Doripenem 500 mg/ Sodium (Chloride) 100 mls @ 100 mls/hr IVPB Q8H-IV AUNG PRN Reason: Protocol Last Admin: 12/05/16 10:58 Dose: 100 mls/hr Dextrose/Sodium Chloride (D5-Ns -) 1,000 mls @ 83 mls/hr IV ASDIR [facility] Last Admin: 12/05/16 05:45 Dose: 83 mls/hr Lacosamide (Vimpat -) 50 mg PO BID [facility] Last Admin: 12/05/16 10:59 Dose: 50 mg Levetiracetam (Keppra -) 1,000 mg PO BID [facility] Last Admin: 12/05/16 10:58 Dose: 1,000 mg Mometasone Furoate (Asmanex 220mcg -) 1 puff IH [facility] Last Admin: 12/04/16 22:54 Dose: 1 puff Montelukast Sodium (Singulair -) 5 mg PO HS [facility] Last Admin: 12/04/16 22:55 Dose: 5 mg Non-Formulary Medication (Clobetasol Propionate/Emoll [Clobetasol Emollient 0.05 % Crm]) 15 gm TP DAILY [facility] Non-Formulary Medication (Glycopyrrolate In Water/Pf [Glycopyrrolate 1 Mg/5 Ml- Water]) 1 mg IV BID [facility] Ondansetron HCl (Zofran Injection) 4 mg IVPB Q6H PRN PRN Reason: NAUSEA Phenobarbital (Phenobarbital Liquid -) 20 mg GT DAILY [facility] Last Admin: 12/05/16 10:58 Dose: 20 mg Pseudoephedrine HCl (Sudafed -) 30 mg PO QID PRN PRN Reason: CONGESTION Last Admin: 12/04/16 22:56 Dose: 30 mg Ranitidine HCl (Zantac -) 150 mg PO DAILY [facility] Last Admin: 12/05/16 10:59 Dose: 150 mg Scopolamine HBr (Transderm-Scop -) 1 patch TD Q72H [facility] Last Admin: 12/03/16 18:22 Dose: 1 patch - Objective Vital Signs: Vital Signs Temperature 98.5 F 12/05/16 14:25 Pulse Rate 83 12/05/16 14:25 Respiratory Rate 20 12/05/16 14:25 Blood Pressure 111/66 12/05/16 14:25 O2 Sat by Pulse Oximetry (%) 98 12/05/16 11:27 Constitutional: Yes: No Distress Cardiovascular: Yes: Regular Rate and Rhythm, S1, S2. No: Murmur Respiratory: Yes: WNL, Regular, CTA Bilaterally, Diminished Gastrointestinal: Yes: WNL, Normal Bowel Sounds, Soft. No: Tenderness, Tenderness, Epigastrium Extremities: No: Cold, Cool, Cyanosis Edema: No Labs: CBC, BMP 12/05/16 06:30 12/05/16 06:30 INR, PTT INR 1.54 (0.82-1.09) H 12/03/16 08:00 Assessment/Plan Microbiology 12/03/16 14:20 Urine - Urine Clean Catch Urine Culture - Final NO GROWTH OBTAINED 12/03/16 08:00 Nasopharyngeal Swab Influenza Types A,B Antigen (CHLOÉ) - Final 12/03/16 08:00 Nasopharyngeal Swab - Final 12/03/16 08:00 Blood - Peripheral Venous Blood Culture - Preliminary NO GROWTH OBTAINED AFTER 48 HOURS, INCUBATION TO CONTINUE FOR 3 DAYS. 12/03/16 08:00 Blood - Peripheral Venous Blood Culture - Preliminary NO GROWTH OBTAINED AFTER 48 HOURS, INCUBATION TO CONTINUE FOR 3 DAYS. Laboratory Tests 12/04/16 12/05/16 12/05/16 08:00 06:30 06:30 WBC 23.8 H D 12.4 H D Hgb 12.6 Plt Count 217 D Creatinine 0.4 L Assessment Pneumonia Clinically improved WBC down today Appears stable No seizures Plan Continue to treat into thursday Discussed with denies Broderick MD
--- NOTE | 2016-12-05 15:29 | PN ---
Physical Exam: SUBJECTIVE: Patient seen and examined, comfortable, non verbal, MR, no seizures. OBJECTIVE: Vital Signs Period Temp Pulse Resp BP Sys/Jay Pulse Ox Last 24 Hr 98 F-99.8 F 83-99 16-20 111-122/57-72 98-98 GENERAL: The patient is mentally retarded,, non verbal LUNGS: very course breath sound, insp/exp ronchi/ HEART: Regular rate and rhythm, S1, S2 without murmur, rub or gallop. ABDOMEN: Soft, nontender, nondistended, normoactive bowel sounds, no guarding, no rebound, no hepatosplenomegaly, no masses. PEG in place; EXTREMITIES: 2+ pulses, warm, well-perfused, no edema. NEUROLOGICAL: MR PSYCH: Normal mood, normal affect. SKIN: Warm, dry, normal turgor, no rashes or lesions noted Laboratory Results - last 24 hr 12/05/16 12/05/16 06:30 06:30 WBC 12.4 H D RBC 3.90 L Hgb 12.6 Hct 38.4 MCV 98.4 H MCHC 33.0 RDW 14.1 Plt Count 217 D MPV 8.4 D Neutrophils % 58.1 D Lymphocytes % 33.9 D Monocytes % 5.3 Eosinophils % 1.9 D Basophils % 0.8 Platelet Comment No clotting detected Sodium 143 Potassium 3.8 Chloride 110 H Carbon Dioxide 23 Anion Gap 10 BUN 6 L Creatinine 0.4 L Creat Clearance w eGFR > 60 Random Glucose 94 D Calcium 8.3 L Total Bilirubin 0.7 D AST 33 ALT 50 Alkaline Phosphatase 159 H Total Protein 6.7 Albumin 3.2 L Active Medications Generic Name Dose Route Start Last Admin Trade Name Freq PRN Reason Stop Dose Admin Acetaminophen 650 mg 12/03/16 20:13 12/04/16 23:11 Tylenol Oral Solution - PO 650 mg Q6H PRN Administration FEVER OR PAIN Albuterol Sulfate 1 amp 12/03/16 12:23 Ventolin 0.083% Nebulizer Soln - NEB QID PRN ASTHMA Diazepam 20 mg 12/03/16 12:30 Diastat Rectal Gel - RC PRN GURVINDER Diazepam 2 mg 12/03/16 14:00 12/05/16 05:45 Valium - PO 2 mg TID GURVINDER Administration Enoxaparin Sodium 30 mg 12/04/16 10:00 12/05/16 10:58 Lovenox - SQ 30 mg DAILY GURVINDER Administration Doripenem 500 mg/ Sodium 100 mls @ 100 mls/hr 12/04/16 16:00 12/05/16 10:58 Chloride IVPB 100 mls/hr Q8H-IV GURVINDER Administration Protocol Dextrose/Sodium Chloride 1,000 mls @ 83 mls/hr 12/04/16 17:30 12/05/16 05:45 D5-Ns - IV 83 mls/hr ASDIR GURVINDER Administration Lacosamide 50 mg 12/03/16 22:00 12/05/16 10:59 Vimpat - PO 50 mg BID GURVINDER Administration Levetiracetam 1,000 mg 12/03/16 22:00 12/05/16 10:58 Keppra - PO 1,000 mg BID GURVINDER Administration Mometasone Furoate 1 puff 12/04/16 22:00 12/04/16 22:54 Asmanex 220mcg - IH 1 puff HS GURVINDER Administration Montelukast Sodium 5 mg 12/03/16 22:00 12/04/16 22:55 Singulair - PO 5 mg HS GURVINDER Administration Non-Formulary Medication 15 gm 12/04/16 10:00 Clobetasol Propionate/Emoll [Clobetasol Emollient 0.05% Crm] TP DAILY GURVINDER Non-Formulary Medication 1 mg 12/03/16 22:00 Glycopyrrolate In Water/Pf [Glycopyrrolate 1 Mg/5 Ml-Water] IV BID GURVINDER Ondansetron HCl 4 mg 12/03/16 20:11 Zofran Injection IVPB Q6H PRN NAUSEA Phenobarbital 20 mg 12/04/16 10:00 12/05/16 10:58 Phenobarbital Liquid - GT 20 mg DAILY GURVINDER Administration Pseudoephedrine HCl 30 mg 12/03/16 12:23 12/04/16 22:56 Sudafed - PO 30 mg QID PRN Administration CONGESTION Ranitidine HCl 150 mg 12/04/16 10:00 12/05/16 10:59 Zantac - PO 150 mg DAILY GURVINDER Administration Scopolamine HBr 1 patch 12/03/16 17:00 12/03/16 18:22 Transderm-Scop - TD 1 patch Q72H GURVINDER Administration ASSESSMENT/PLAN: This is a 21 year old male with PMHx cortical blindness, cerebral palsy, spastic quadriplegia, seizure disorder, reactive airway disease, YAKELIN, GERD, HTN , strabismus, scoliosis, nonverbal presents to ED brought by ambulance from [facility] for vomiting copious amount of undigested food and cough. Admitted for sepsis secondary to aspiration pneumonia. #sepsis secondary to aspiration pneumonia:improving -sepsis protocol; IVF; cbc. bmp, la -wbc trended down 12 -blood culture no growth - ID following #possible illeus; -has peg tube -abdominal xray pending -if negative can start tube feeds #seizure disorder: stable no events -keppra 1,000mg bid -phenobarbitol 20mg gtqd -vimpat 50m gbid #reactive airway disease: -Albuterol Sulfate 1amp q4h gurvinder -singulair #gerd: -ranitidine 150mg po daily FEN: Fluids: d5w 83mls hr Electrolytes:wnl Diet: npo intil abdominal xray VTE prophylaxis: lovenox Disposition: need cont IV antibiotics Visit type - Emergency Visit Emergency Visit: Yes ED Registration Date: 12/03/16 Care time: The patient presented to the Emergency Department on the above date and was hospitalized for further evaluation of their emergent condition. - New Patient This patient is new to me today: No - Critical Care Critical Care patient: No
--- NOTE | 2016-12-05 15:55 | PN ---
Teaching Attending Note Name of Resident: Josselyn Andrade ATTENDING PHYSICIAN STATEMENT I saw and evaluated the patient. I reviewed the resident's note and discussed the case with the resident. I agree with the resident's findings and plan as documented. SUBJECTIVE:resting comfortable OBJECTIVE: Last Vital Signs Temp Pulse Resp BP Pulse Ox 98.5 F 83 20 111/66 98 12/05/16 14:25 12/05/16 14:25 12/05/16 14:25 12/05/16 14:25 12/05/16 11:27 General nonverbal. resting comfortable CV S1 S2 RRR no murmur/rub/gallop Lungs coarse breath sounds diffusely. no wheezing abdomen +distended, hypoactive BS. non tender +PEG in LUQ ASSESSMENT AND PLAN: 21yo M with PMH CP, blind, functional quadriplegia, seizure and HTN presented to the ER and was admitted for further evaluation of their emergent condition 1. Aspiration PNA- afebrile. currently on doripenem day2. can lower seizure threshold. monitor closely. aspiration precautions. f/u cx 2. ileus- no BM reported by RN. hypoactive BS. will repeat AXR and monitor if improved will re-start tube feeds. cont D5NS @ 83cc./H. will need swallow eval 3. seizure- no seizure like activity. monitor with initiation of abx. cont home management 4. DVT ppx- start lovenox
[2016-12-05] MEDS ORDERED: INFLUENZA VACCINE 45 MCG/0.5 ML (MDV 16-17) IM ONE (17:30)
[2016-12-05] MEDS: ACETAMINOPHEN 650 MG/20.3 ML ORAL SOLUTION (CUPS) PO PRN (22:21)
[2016-12-05] MEDS: MOMETASONE FUROATE 220 MCG/IH INHALER IH SCH (22:22)
[2016-12-05] MEDS: MONTELUKAST NA 5 MG TAB.CHEW PO SCH (22:29)
[2016-12-06] MEDS: DORIPENEM 500 MG in SODIUM CHLORIDE 100 ML IVPB SCH ×3 (02:02→17:49)
[2016-12-06] MEDS: diazePAM 2 MG TABLET PO SCH ×3 (06:41→21:16)
[2016-12-06 09:30] LABS: CALCIUM 7.9 mg/dL (8.5-10.1); COCKROFT - GAULT 201.59; CREATININE 0.3 mg/dL (0.7-1.3)
--- NOTE | 2016-12-06 10:29 | PN ---
Progress Note (short form) - Note Progress Note: resting comfortable Current Medications Generic Name Dose Route Start Last Admin Trade Name Freq PRN Reason Stop Dose Admin Acetaminophen 650 mg 12/03/16 20:13 12/05/16 22:21 Tylenol Oral Solution - PO 650 mg Q6H PRN Administration FEVER OR PAIN Albuterol Sulfate 1 amp 12/03/16 12:23 Ventolin 0.083% Nebulizer Soln - NEB QID PRN ASTHMA Diazepam 20 mg 12/03/16 12:30 Diastat Rectal Gel - RC PRN AUNG Diazepam 2 mg 12/03/16 14:00 12/06/16 06:41 Valium - PO 2 mg TID AUNG Administration Enoxaparin Sodium 30 mg 12/04/16 10:00 12/05/16 10:58 Lovenox - SQ 30 mg DAILY AUNG Administration Doripenem 500 mg/ Sodium 100 mls @ 100 mls/hr 12/04/16 16:00 12/06/16 02:02 Chloride IVPB 100 mls/hr Q8H-IV AUNG Administration Protocol Dextrose/Sodium Chloride 1,000 mls @ 83 mls/hr 12/04/16 17:30 12/05/16 20:00 D5-Ns - IV 83 mls/hr ASDIR AUNG Administration Lacosamide 50 mg 12/03/16 22:00 12/05/16 22:23 Vimpat - PO 50 mg BID AUNG Administration Levetiracetam 1,000 mg 12/03/16 22:00 12/05/16 22:23 Keppra - PO 1,000 mg BID AUNG Administration Mometasone Furoate 1 puff 12/04/16 22:00 12/05/16 22:22 Asmanex 220mcg - IH Not Given HS AUNG Montelukast Sodium 5 mg 12/03/16 22:00 12/05/16 22:29 Singulair - PO 5 mg HS AUNG Administration Non-Formulary Medication 15 gm 12/04/16 10:00 Clobetasol Propionate/Emoll [Clobetasol Emollient 0.05% Crm] TP DAILY AUNG Non-Formulary Medication 1 mg 12/03/16 22:00 Glycopyrrolate In Water/Pf [Glycopyrrolate 1 Mg/5 Ml-Water] IV BID AUNG Ondansetron HCl 4 mg 12/03/16 20:11 Zofran Injection IVPB Q6H PRN NAUSEA Phenobarbital 20 mg 12/04/16 10:00 12/05/16 10:58 Phenobarbital Liquid - GT 20 mg DAILY AUNG Administration Pseudoephedrine HCl 30 mg 12/03/16 12:23 12/04/16 22:56 Sudafed - PO 30 mg QID PRN Administration CONGESTION Ranitidine HCl 150 mg 12/04/16 10:00 12/05/16 10:59 Zantac - PO 150 mg DAILY AUNG Administration Scopolamine HBr 1 patch 12/03/16 17:00 12/03/16 18:22 Transderm-Scop - TD 1 patch Q72H AUNG Administration Last Vital Signs Temp Pulse Resp BP Pulse Ox 98.8 F 62 20 113/77 98 12/06/16 06:00 12/06/16 06:00 12/06/16 06:00 12/06/16 06:00 12/05/16 21:00 General nonverbal. resting comfortable CV S1 S2 RRR no murmur/rub/gallop Lungs coarse breath sounds diffusely. no wheezing abdomen +distended, normoactive BS. non tender +PEG in LUQ ASSESSMENT AND PLAN: 21yo M with PMH CP, blind, functional quadriplegia, seizure and HTN presented to the ER and was admitted for further evaluation of their emergent condition 1. Aspiration PNA- afebrile. currently on doripenem day3. can lower seizure threshold. monitor closely. aspiration precautions. f/u cx 2. ileus- 3 BM overnight. AXR showing slightly worsening ileus on my read. will cont to hold feeds at this time. repeat AXR in the AM. cont D5NS @ 83cc./H. will need swallow eval 3. seizure- no seizure like activity. monitor with initiation of abx. cont home management 4. DVT ppx- lovenox Visit type - Emergency Visit Emergency Visit: Yes ED Registration Date: 12/03/16 Care time: The patient presented to the Emergency Department on the above date and was hospitalized for further evaluation of their emergent condition. - New Patient This patient is new to me today: No - Critical Care Critical Care patient: No - Discharge Referral Referred to [facility] No
[2016-12-06 11:30] LABS: BASOPHIL 0.6 % (0-2.0); EOSINOPHIL 4.4 % (0-4.5); MCH 32.5 pg (25.7-33.7); MCHC 33.7 g/dl (32.0-35.9); MEAN CELL VOLUME 96.4 fl (80-96); MEAN PLT VOLUME 7.9 fl (7.5-11.1); NEUTROPHILS 57.2 % (42.8-82.8); RDW 14.4 % (11.9-15.9); WHITE BLOOD COUNT 9.2 K/mm3 (4.0-10.0)
[2016-12-06 12:03] LABS: PLATELET COUNT 247 K/MM3 (134-434)
[2016-12-06 12:04] LABS: PLATELET ESTIMATE ADEQUATE (NORMAL)
[2016-12-06] MEDS ORDERED: PT OWN MED DRAWER 7, Y5N ONE ×3 (12:07→20:57)
[2016-12-06] MEDS: ENOXAPARIN NA (PORCINE) 30 MG/0.3 ML DISP.SYRIN SQ SCH (12:12)
[2016-12-06] MEDS: levETIRAcetam 500 MG TABLET (FP) PO SCH ×2 (12:18→21:16)
[2016-12-06] MEDS: LACOSAMIDE 50 MG TABLET PO SCH ×2 (12:19→21:16)
[2016-12-06] MEDS: PHENobarbital 20 MG/5 ML UNIT-DOSE CUP GT SCH (12:19)
[2016-12-06] MEDS: RANITIDINE HCL 150 MG TABLET (FP) PO SCH (12:20)
[2016-12-06] MEDS: SCOPOLAMINE HYDROBROMIDE 1 PATCH PATCH.TD72 TD SCH (17:48)
[2016-12-06] MEDS: MONTELUKAST NA 5 MG TAB.CHEW PO SCH (21:16)
[2016-12-06] MEDS: MOMETASONE FUROATE 220 MCG/IH INHALER IH SCH (21:17)
[2016-12-06] MEDS: DEXTROSE 5%-NORMAL SALINE 1,000 ML IV SCH (21:17)
[2016-12-07] MEDS: DORIPENEM 500 MG in SODIUM CHLORIDE 100 ML IVPB SCH ×3 (01:04→17:55)
[2016-12-07] MEDS: diazePAM 2 MG TABLET PO SCH ×3 (06:25→22:25)
[2016-12-07] MEDS ORDERED: PT OWN MED DRAWER 7, Y5N ONE ×2 (10:56→17:50)
[2016-12-07] MEDS: LACOSAMIDE 50 MG TABLET PO SCH ×2 (10:59→22:25)
[2016-12-07] MEDS: levETIRAcetam 500 MG TABLET (FP) PO SCH ×2 (10:59→22:25)
[2016-12-07] MEDS: RANITIDINE HCL 150 MG TABLET (FP) PO SCH (10:59)
[2016-12-07] MEDS: PHENobarbital 20 MG/5 ML UNIT-DOSE CUP GT SCH (11:00)
[2016-12-07] MEDS: ENOXAPARIN NA (PORCINE) 30 MG/0.3 ML DISP.SYRIN SQ SCH (11:00)
--- NOTE | 2016-12-07 11:47 | PN ---
Teaching Attending Note Name of Resident: Josselyn Andrade ATTENDING PHYSICIAN STATEMENT I saw and evaluated the patient. I reviewed the resident's note and discussed the case with the resident. I agree with the resident's findings and plan as documented. SUBJECTIVE:resting comfortable. non verbal OBJECTIVE: Last Vital Signs Temp Pulse Resp BP Pulse Ox 98.2 F 71 20 110/70 98 12/07/16 06:30 12/07/16 06:30 12/07/16 06:30 12/07/16 06:30 12/06/16 20:20 General nonverbal. resting comfortable CV S1 S2 RRR no murmur/rub/gallop Lungs coarse breath sounds diffusely. no wheezing abdomen +distended, normoactive BS. non tender +PEG in LUQ ASSESSMENT AND PLAN: 21yo M with PMH CP, blind, functional quadriplegia, seizure and HTN presented to the ER and was admitted for further evaluation of their emergent condition 1. Aspiration PNA- afebrile. currently on doripenem day4. can lower seizure threshold. monitor closely. aspiration precautions. f/u cx 2. ileus- no BM since yesterday, abdomen feels less distended today. will repeat AXR. if improved will re-start tube feeds. cont D5NS @ 83cc./H. 3. seizure- no seizure like activity. monitor with initiation of abx. cont home management 4. DVT ppx- lovenox
--- NOTE | 2016-12-07 12:17 | PN ---
Physical Exam: SUBJECTIVE: Patient seen and examined, sleepy, afebrile, no events overnight. Non verbal. OBJECTIVE: Vital Signs Period Temp Pulse Resp BP Sys/Jay Pulse Ox Last 24 Hr 97.2 F-98.2 F 67-82 18-20 108-114/70-82 98 GENERAL: The patient is sleepy; not arousable LUNGS: Breath sounds with expiratory ronchi, though improved HEART: Regular rate and rhythm, S1, S2 without murmur, rub or gallop. ABDOMEN: Soft, nontender, nondistended, normoactive bowel sounds, no guarding, no rebound, no hepatosplenomegaly, no masses. PEg tube; no erythema , no edema EXTREMITIES: 2+ pulses, warm, well-perfused, no edema. contracted NEUROLOGICAL: MR SKIN: Warm, dry, normal turgor, no rashes or lesions noted Back: scoliosis Active Medications Generic Name Dose Route Start Last Admin Trade Name Freq PRN Reason Stop Dose Admin Acetaminophen 650 mg 12/03/16 20:13 12/05/16 22:21 Tylenol Oral Solution - PO 650 mg Q6H PRN Administration FEVER OR PAIN Albuterol Sulfate 1 amp 12/03/16 12:23 Ventolin 0.083% Nebulizer Soln - NEB QID PRN ASTHMA Diazepam 20 mg 12/03/16 12:30 Diastat Rectal Gel - RC PRN GURVINDER Diazepam 2 mg 12/03/16 14:00 12/07/16 06:25 Valium - PO 2 mg TID GURVINDER Administration Enoxaparin Sodium 30 mg 12/04/16 10:00 12/07/16 11:00 Lovenox - SQ 30 mg DAILY GURVINDER Administration Doripenem 500 mg/ Sodium 100 mls @ 100 mls/hr 12/04/16 16:00 12/07/16 10:59 Chloride IVPB 100 mls/hr Q8H-IV GURVINDER Administration Protocol Dextrose/Sodium Chloride 1,000 mls @ 83 mls/hr 12/04/16 17:30 12/06/16 21:17 D5-Ns - IV 83 mls/hr ASDIR GURVINDER Administration Lacosamide 50 mg 12/03/16 22:00 12/07/16 10:59 Vimpat - PO 50 mg BID GURVINDER Administration Levetiracetam 1,000 mg 12/03/16 22:00 12/07/16 10:59 Keppra - PO 1,000 mg BID GURVINDER Administration Mometasone Furoate 1 puff 12/04/16 22:00 12/06/16 21:17 Asmanex 220mcg - IH Not Given HS GURVINDER Montelukast Sodium 5 mg 12/03/16 22:00 12/06/16 21:16 Singulair - PO 5 mg HS GURVINDER Administration Non-Formulary Medication 15 gm 12/04/16 10:00 Clobetasol Propionate/Emoll [Clobetasol Emollient 0.05% Crm] TP DAILY GURVINDER Non-Formulary Medication 1 mg 12/03/16 22:00 Glycopyrrolate In Water/Pf [Glycopyrrolate 1 Mg/5 Ml-Water] IV BID GURVINDER Ondansetron HCl 4 mg 12/03/16 20:11 Zofran Injection IVPB Q6H PRN NAUSEA Phenobarbital 20 mg 12/04/16 10:00 12/07/16 11:00 Phenobarbital Liquid - GT 20 mg DAILY GURVINDER Administration Pseudoephedrine HCl 30 mg 12/03/16 12:23 12/04/16 22:56 Sudafed - PO 30 mg QID PRN Administration CONGESTION Ranitidine HCl 150 mg 12/04/16 10:00 12/07/16 10:59 Zantac - PO 150 mg DAILY GURVINDER Administration Scopolamine HBr 1 patch 12/03/16 17:00 12/06/16 17:48 Transderm-Scop - TD 1 patch Q72H GURVINDER Administration ASSESSMENT/PLAN: This is a 21 year old male with PMHx cortical blindness, cerebral palsy, spastic quadriplegia, seizure disorder, reactive airway disease, YAKELIN, GERD, HTN , strabismus, scoliosis, nonverbal presents to ED brought by ambulance from [facility] for vomiting copious amount of undigested food and cough. Admitted for sepsis secondary to aspiration pneumonia. #sepsis secondary to aspiration pneumonia:improving -wbc wnl -blood culture no growth -doripenam day 4 -ID following #illeus; -peg tube LUQ -serial abdominal xrays showing illeus pattern pending today -if negative can start tube feeds #seizure disorder: stable no events -keppra 1,000mg bid -phenobarbitol 20mg gtqd -vimpat 50m gbid #reactive airway disease: -Albuterol Sulfate 1amp q4h gurvinder -singulair #gerd: -ranitidine 150mg po daily FEN: Fluids: d5w 83mls hr Electrolytes:wnl Diet: npo intil abdominal xray VTE prophylaxis: lovenox Disposition: most likely dc in am Visit type - Emergency Visit Emergency Visit: Yes ED Registration Date: 12/03/16 Care time: The patient presented to the Emergency Department on the above date and was hospitalized for further evaluation of their emergent condition. - New Patient This patient is new to me today: No - Critical Care Critical Care patient: No
[2016-12-07] MEDS: MOMETASONE FUROATE 220 MCG/IH INHALER IH SCH (22:26)
[2016-12-07] MEDS: MONTELUKAST NA 5 MG TAB.CHEW PO SCH (22:26)
[2016-12-07] MEDS: DEXTROSE 5%-NORMAL SALINE 1,000 ML IV SCH (22:38)
[2016-12-08] MEDS: DORIPENEM 500 MG in SODIUM CHLORIDE 100 ML IVPB SCH ×3 (01:15→18:50)
[2016-12-08] MEDS: diazePAM 2 MG TABLET PO SCH ×3 (05:54→21:18)
[2016-12-08 08:06] LABS: BASOPHIL 0.9 % (0-2.0); MCHC 34.4 g/dl (32.0-35.9); MEAN CELL VOLUME 95.9 fl (80-96); MEAN PLT VOLUME 7.9 fl (7.5-11.1); NEUTROPHILS 40.8 % (42.8-82.8); PLATELET COUNT 258 K/MM3 (134-434); RDW 13.9 % (11.9-15.9); WHITE BLOOD COUNT 6.7 K/mm3 (4.0-10.0)
--- NOTE | 2016-12-08 09:59 | PN ---
Progress Note (short form) - Note Progress Note: ID Doripenem day 4 therapy Stable Selected Entries 12/08/16 06:03 Temperature 97.3 F L Pulse Rate 79 Respiratory 18 Rate Blood Pressure 102/54 Lung Clear Cor S1 S2 Abd Soft notender Microbiology 12/03/16 14:20 Urine - Urine Clean Catch Urine Culture - Final NO GROWTH OBTAINED 12/03/16 08:00 Nasopharyngeal Swab Influenza Types A,B Antigen (CHLOÉ) - Final 12/03/16 08:00 Nasopharyngeal Swab - Final 12/03/16 08:00 Blood - Peripheral Venous Blood Culture - Final NO GROWTH AFTER 5 DAYS INCUBATION 12/03/16 08:00 Blood - Peripheral Venous Blood Culture - Final NO GROWTH AFTER 5 DAYS INCUBATION Laboratory Tests 12/06/16 12/08/16 08:40 06:15 WBC 6.7 Hgb 11.8 Plt Count 258 BUN 2 L* D Creatinine 0.3 L D Assessment Presumed aspiration PNA Plan Tomorrow last day Doripenem Kindly recall as needed Meggan SHIRLEY
[2016-12-08 10:38] LABS: COCKROFT - GAULT 201.59; CREATININE 0.3 mg/dL (0.7-1.3)
[2016-12-08] MEDS ORDERED: PT OWN MED DRAWER 7, Y5N ONE ×3 (12:42→18:49)
[2016-12-08] MEDS: ENOXAPARIN NA (PORCINE) 30 MG/0.3 ML DISP.SYRIN SQ SCH (12:53)
[2016-12-08] MEDS: LACOSAMIDE 50 MG TABLET PO SCH ×2 (12:53→21:18)
[2016-12-08] MEDS: PHENobarbital 20 MG/5 ML UNIT-DOSE CUP GT SCH (12:53)
[2016-12-08] MEDS: levETIRAcetam 500 MG TABLET (FP) PO SCH ×2 (12:53→21:18)
[2016-12-08] MEDS: RANITIDINE HCL 150 MG TABLET (FP) PO SCH (12:54)
[2016-12-08] MEDS ORDERED: ACETAMINOPHEN 650 MG/20.3 ML ORAL SOLUTION (CUPS) PO ONE (14:52)
[2016-12-08] MEDS ORDERED: POTASSIUM CHLORIDE ORAL LIQUID 20 MEQ/15 ML PEG ONE (14:57)
--- NOTE | 2016-12-08 14:57 | PN ---
Teaching Attending Note Name of Resident: Josselyn Andrade ATTENDING PHYSICIAN STATEMENT I saw and evaluated the patient. I reviewed the resident's note and discussed the case with the resident. I agree with the resident's findings and plan as documented. SUBJECTIVE:resting comfortable OBJECTIVE: Last Vital Signs Temp Pulse Resp BP Pulse Ox 97.3 F L 78 18 102/54 98 12/08/16 06:03 12/08/16 10:45 12/08/16 06:03 12/08/16 06:03 12/08/16 10:45 General nonverbal. resting comfortable CV S1 S2 RRR no murmur/rub/gallop Lungs coarse breath sounds diffusely. no wheezing abdomen less distended normoactive BS. non tender +PEG in LUQ ASSESSMENT AND PLAN: 21yo M with PMH CP, blind, functional quadriplegia, seizure and HTN presented to the ER and was admitted for further evaluation of their emergent condition 1. Aspiration PNA- afebrile. currently on doripenem day4. will complete 5 day course tomorrow. can lower seizure threshold. monitor closely. aspiration precautions. f/u cx 2. ileus- improved. tolerating tube feeds. still no BM. start stool softeners. if no BM by tomorrow will give enema prior to discharge d/c IVF 3. seizure- no seizure like activity. monitor with initiation of abx. cont home management 4. DVT ppx- lovenox 5. d/c to assisted tomorrow after completes abx course
[2016-12-08] MEDS ORDERED: MAGNESIUM HYDROX 2400MG/30ML ORAL SUSPENSION 30 ML CUP PEG ONE (15:20)
--- NOTE | 2016-12-08 20:24 | PN ---
Physical Exam: SUBJECTIVE: Patient seen and examined, more arousable/alert today. Nonverbal. Afebrile. OBJECTIVE: Vital Signs Period Temp Pulse Resp BP Sys/Jay Pulse Ox Last 24 Hr 97.3 F-100.3 F 78-86 18-18 102-144/51-75 97-98 GENERAL: The patient is awake, MR HEAD: Normal with no signs of trauma. EYES: PERRL, extraocular movements intact, sclera anicteric, conjunctiva clear. No ptosis. ENT: Ears normal, nares patent, oropharynx clear without exudates, moist mucous membranes. NECK: Trachea midline, full range of motion, supple. LUNGS: breathsounds scattered ronchi; expiratory wheeze HEART: Regular rate and rhythm, S1, S2 without murmur, rub or gallop. ABDOMEN: Soft, nontender, nondistended, normoactive bowel sounds, no guarding, no rebound, no hepatosplenomegaly, no masses.PEG tube in place, less distention EXTREMITIES: 2+ pulses, warm, well-perfused, no edema. NEUROLOGICAL:MR Laboratory Results - last 24 hr 12/08/16 12/08/16 06:15 06:15 WBC 6.7 RBC 3.56 L Hgb 11.8 Hct 34.2 L MCV 95.9 MCHC 34.4 RDW 13.9 Plt Count 258 MPV 7.9 Neutrophils % 40.8 L D Lymphocytes % 46.0 H D Monocytes % 7.3 Eosinophils % 5.0 H Basophils % 0.9 Sodium 145 Potassium 3.3 L Chloride 111 H Carbon Dioxide 21 Anion Gap 13 BUN 3 L D Creatinine 0.3 L Random Glucose 87 Calcium 8.0 L Active Medications Generic Name Dose Route Start Last Admin Trade Name Freq PRN Reason Stop Dose Admin Acetaminophen 650 mg 12/03/16 20:13 12/05/16 22:21 Tylenol Oral Solution - PO 650 mg Q6H PRN Administration FEVER OR PAIN Diazepam 20 mg 12/03/16 12:30 Diastat Rectal Gel - RC PRN GURVINDER Diazepam 2 mg 12/03/16 14:00 12/08/16 16:38 Valium - PO 2 mg TID GURVINDER Administration Enoxaparin Sodium 30 mg 12/04/16 10:00 12/08/16 12:53 Lovenox - SQ 30 mg DAILY GURVINDER Administration Doripenem 500 mg/ Sodium 100 mls @ 100 mls/hr 12/04/16 16:00 12/08/16 18:50 Chloride IVPB 100 mls/hr Q8H-IV GURVINDER Administration Protocol Lacosamide 50 mg 12/03/16 22:00 12/08/16 12:53 Vimpat - PO 50 mg BID GURVINDER Administration Levetiracetam 1,000 mg 12/03/16 22:00 12/08/16 12:53 Keppra - PO 1,000 mg BID GURVINDER Administration Magnesium Hydroxide 30 ml 12/08/16 22:00 Milk Of Magnesia - PEG BID GURVINDER Mometasone Furoate 1 puff 12/04/16 22:00 12/07/16 22:26 Asmanex 220mcg - IH Not Given HS GURVINDER Montelukast Sodium 5 mg 12/03/16 22:00 12/07/16 22:26 Singulair - PO 5 mg HS GURVINDER Administration Ondansetron HCl 4 mg 12/03/16 20:11 Zofran Injection IVPB Q6H PRN NAUSEA Phenobarbital 20 mg 12/04/16 10:00 12/08/16 12:53 Phenobarbital Liquid - GT 20 mg DAILY GURVINDER Administration Pseudoephedrine HCl 30 mg 12/03/16 12:23 12/04/16 22:56 Sudafed - PO 30 mg QID PRN Administration CONGESTION Ranitidine HCl 150 mg 12/04/16 10:00 12/08/16 12:54 Zantac - PO 150 mg DAILY GURVINDER Administration Scopolamine HBr 1 patch 12/03/16 17:00 12/06/16 17:48 Transderm-Scop - TD 1 patch Q72H GURVINDER Administration ASSESSMENT/PLAN: This is a 21 year old male with PMHx cortical blindness, cerebral palsy, spastic quadriplegia, seizure disorder, reactive airway disease, YAKELIN, GERD, HTN , strabismus, scoliosis, nonverbal presents to ED brought by ambulance from [facility] for vomiting copious amount of undigested food and cough. Admitted for sepsis secondary to aspiration pneumonia. #sepsis secondary to aspiration pneumonia:resolved -wbc wnl -blood culture no growth -doripenam day 6 continue until tomorrow -ID following #illeus; -peg tube LUQ -serial abdominal xrays showing illeus pattern ; + BS -re start tube feeds #seizure disorder: stable no events -keppra 1,000mg bid -phenobarbitol 20mg gtqd -vimpat 50m gbid #reactive airway disease: -Albuterol Sulfate 1amp q4h gurvinder -singulair #gerd: -ranitidine 150mg po daily FEN: Fluids: d5w 83mls hr Electrolytes:wnl Diet: tube feed VTE prophylaxis: lovenox Disposition: dc after complete day 7 IV antibiotics Visit type - Emergency Visit Emergency Visit: Yes ED Registration Date: 12/03/16 Care time: The patient presented to the Emergency Department on the above date and was hospitalized for further evaluation of their emergent condition. - New Patient This patient is new to me today: No - Critical Care Critical Care patient: No
[2016-12-08] MEDS: MOMETASONE FUROATE 220 MCG/IH INHALER IH SCH (21:18)
[2016-12-08] MEDS: MAGNESIUM HYDROX 2400MG/30ML ORAL SUSPENSION 30 ML CUP PEG SCH (21:18)
[2016-12-08] MEDS: MONTELUKAST NA 5 MG TAB.CHEW PO SCH (21:19)
[2016-12-09] MEDS: DORIPENEM 500 MG in SODIUM CHLORIDE 100 ML IVPB SCH ×2 (01:03→10:20)
[2016-12-09] MEDS: diazePAM 2 MG TABLET PO SCH ×2 (05:39→13:46)
[2016-12-09 08:01] LABS: BASOPHIL 0.7 % (0-2.0); EOSINOPHIL 4.1 % (0-4.5); MCH 32.8 pg (25.7-33.7); MCHC 33.9 g/dl (32.0-35.9); MEAN CELL VOLUME 96.6 fl (80-96); MEAN PLT VOLUME 8.2 fl (7.5-11.1); NEUTROPHILS 45.8 % (42.8-82.8); PLATELET COUNT 279 K/MM3 (134-434); RDW 13.8 % (11.9-15.9); WHITE BLOOD COUNT 7.6 K/mm3 (4.0-10.0)
[2016-12-09 08:28] LABS: CALCIUM 8.5 mg/dL (8.5-10.1); MAGNESIUM 2.3 mg/dL (1.8-2.4)
[2016-12-09 08:30] LABS: COCKROFT - GAULT 151.19; CREATININE 0.4 mg/dL (0.7-1.3)
[2016-12-09 08:52] VITALS: BP 122/89; PULSE 73; TEMP 99
[2016-12-09] MEDS ORDERED: PT OWN MED DRAWER 7, Y5N ONE (10:19)
[2016-12-09] MEDS: levETIRAcetam 500 MG TABLET (FP) PO SCH (10:21)
[2016-12-09] MEDS: MAGNESIUM HYDROX 2400MG/30ML ORAL SUSPENSION 30 ML CUP PEG SCH (10:21)
[2016-12-09] MEDS: PHENobarbital 20 MG/5 ML UNIT-DOSE CUP GT SCH (10:21)
[2016-12-09] MEDS: RANITIDINE HCL 150 MG TABLET (FP) PO SCH (10:21)
[2016-12-09] MEDS: LACOSAMIDE 50 MG TABLET PO SCH (10:21)
[2016-12-09] MEDS: ENOXAPARIN NA (PORCINE) 30 MG/0.3 ML DISP.SYRIN SQ SCH (10:21)
[2016-12-09] MEDS ORDERED: POLYETHYLENE GLYCOL 3350 119 GM BTL PO SCH (11:30)
--- NOTE | 2016-12-09 11:33 | DS ---
Physical Exam: SUBJECTIVE: Patient seen and examined, awake, non verbal, no acute distress, large BM this morning. OBJECTIVE: Vital Signs Period Temp Pulse Resp BP Sys/Jay Pulse Ox Last 24 Hr 98.8 F-100.3 F 66-78 18-20 106-155/54-90 99 PHYSICAL EXAM GENERAL: The patient is awake, non verbal, TBI HEAD: Normal with no signs of trauma. LUNGS: Breath sounds mild ronchi with expiration HEART: Regular rate and rhythm, S1, S2 without murmur, rub or gallop. ABDOMEN: Soft, nontender, nondistended, normoactive bowel sounds, no guarding, no rebound, no hepatosplenomegaly, no masses. PEG tube in place, no swelling, erythema EXTREMITIES: 2+ pulses, warm, well-perfused, no edema. NEUROLOGICAL: non verbal, MR SKIN: Warm, dry, normal turgor, no rashes or lesions noted. LABS Laboratory Results - last 24 hr 12/09/16 12/09/16 06:00 06:00 WBC 7.6 RBC 3.77 L Hgb 12.4 Hct 36.4 MCV 96.6 H MCHC 33.9 RDW 13.8 Plt Count 279 MPV 8.2 Neutrophils % 45.8 Lymphocytes % 41.9 H Monocytes % 7.5 Eosinophils % 4.1 Basophils % 0.7 Sodium 142 Potassium 3.9 Chloride 108 H Carbon Dioxide 25 Anion Gap 9 BUN 6 L D Creatinine 0.4 L D Random Glucose 89 Calcium 8.5 Magnesium 2.3 Microbiology 12/03/16 08:00 Nasopharyngeal Swab Respiratory Virus Panel - Preliminary 12/03/16 08:00 Blood - Peripheral Venous Blood Culture - Final NO GROWTH AFTER 5 DAYS INCUBATION 12/03/16 08:00 Blood - Peripheral Venous Blood Culture - Final NO GROWTH AFTER 5 DAYS INCUBATION 12/03/16 14:20 Urine - Urine Clean Catch Urine Culture - Final NO GROWTH OBTAINED 12/03/16 08:00 Nasopharyngeal Swab Influenza Types A,B Antigen (CHLOÉ) - Final 12/03/16 08:00 Nasopharyngeal Swab - Final HOSPITAL COURSE: Date of Admission:12/03/16 Date of Discharge: 12/09/16 This is a 21 year old male with PMHx cortical blindness, cerebral palsy, spastic quadriplegia, seizure disorder, reactive airway disease, YAKELIN, GERD, HTN , strabismus, scoliosis, nonverbal presents to ED brought by ambulance from [facility] for vomiting copious amount of undigested food and cough. Admitted for sepsis secondary to aspiration pneumonia. #sepsis secondary to aspiration pneumonia:resolved -wbc wnl -blood culture no growth -doripenam completed 7 days -ID was on case #illeus; chronic issue -peg tube LUQ -serial abdominal xrays showing illeus pattern ; + BS -restarted tube feeds; large BM this morning #seizure disorder: stable no events -keppra 1,000mg bid -phenobarbitol 20mg gtqd -vimpat 50m gbid #reactive airway disease: -Albuterol Sulfate 1amp q4h gurvinder -singulair #gerd: -ranitidine 150mg po daily Minutes to complete discharge: 35 Discharge Summary Reason For Visit: ASPIRATION Current Active Problems DVT prophylaxis (Acute) Reactive airway disease (Chronic) Seizure disorder (Chronic) Condition: Improved - Instructions Diet, Activity, Other Instructions: Mr. Zarate has been diagnose with aspiration pneumonia. He has completed 7 day course of antibiotics. Please continue with aspiration precautions. If you experience any worsening of symptoms please return to the emergency room. Referrals: Ash Pride Jr [Non Staff, Medical] - Disposition: GROUP HOME FACILITY - Home Medications Comprehensive Discharge Medication List: Ambulatory Orders Albuterol 0.083% Nebulizer Martha [Ventolin 0.083% Nebulizer Soln -] 1 neb NEB QID PRN 12/03/16 Calcium Carbonate/Vitamin D3 [Calcium 600 + Vit D 400 Softgl] 1 each PO DAILY Clobetasol Propionate/Emoll [Clobetasol Emollient 0.05% Crm] 15 gm TP DAILY 01/14 Diazepam 2 mg PO TID 12/03/16 Diazepam Rectal Gel [Diastat Rectal Gel -] 20 mg RC PRN 12/03/16 Fluticasone Propionate [Flovent Diskus] 250 mcg IH DAILY 12/03/16 Gabapentin 400 mg PO BID 12/03/16 Glycopyrrolate in Water/Pf [Glycopyrrolate 1 mg/5 ml-Water] 1 mg IV BID Lacosamide [Vimpat -] 50 mg PO BID 12/03/16 Lactulose 10 gm PO HS 12/03/16 Levetiracetam [Spritam] 1,000 mg PO BID 12/03/16 Montelukast Na [Singulair -] 5 mg PO HS 12/03/16 Phenobarbital 20 mg GT DAILY 12/03/16 Pseudoephedrine HCl 30 mg PO QID PRN 12/03/16 Ranitidine [Zantac -] 150 mg PO DAILY 12/03/16 Scopolamine [Transderm-Scop] 1 each TD Q2D 12/03/16 Sennosides [Senna] 8.6 mg PO DAILY 12/03/16 Magnesium Hydrox 2400MG/30Ml [Milk of Magnesia -] 30 ml PEG BID bottle Mometasone Furoate [Asmanex 220Mcg -] 1 puff IH HS inhaler 12/09/16 This patient is new to me today: No Emergency Visit: No Critical Care patient: No - Discharge Referral Referred to [facility] No
--- NOTE | 2016-12-09 16:07 | PN ---
Teaching Attending Note Name of Resident: Josselyn Andrade ATTENDING PHYSICIAN STATEMENT I saw and evaluated the patient. I reviewed the resident's note and discussed the case with the resident. I agree with the resident's findings and plan as documented. SUBJECTIVE: OBJECTIVE: Vital Signs Period Temp Pulse Resp BP Sys/Jay Pulse Ox Last 24 Hr 98.8 F-100.2 F 66-78 18-20 106-155/69-90 99-100 ASSESSMENT AND PLAN: 21yo M with PMH CP, blind, functional quadriplegia, seizure and HTN presented to the ER and was admitted for further evaluation of their emergent condition 1. Aspiration PNA- afebrile. currently on doripenem day4. will complete 5 day course tomorrow. can lower seizure threshold. monitor closely. aspiration precautions. f/u cx 2. ileus- improved. tolerating tube feeds. still no BM. start stool softeners. if no BM by tomorrow will give enema prior to discharge d/c IVF 3. seizure- no seizure like activity. monitor with initiation of abx. cont home management 4. DVT ppx- lovenox [facility]. [facility] after completes abx course
== END 2016-12-09 14:46 | DRG 720 ==
LOC: JER 06:42 → JERBED 11:46 → J7W 14:42
PROVIDERS: ADMIT Internal Medicine; ATTEND Internal Medicine
DX: A41.9 Sepsis, unspecified organism (principal); J69.0 Pneumonitis due to inhalation of food and vomit; H47.619 Cortical blindness, unspecified side of brain; G80.0 Spastic quadriplegic cerebral palsy; G40.802 Other epilepsy, not intractable, without status epilepticus; J45.909 Unspecified asthma, uncomplicated; G47.33 Obstructive sleep apnea (adult) (pediatric); K21.9 Gastro-esophageal reflux disease without esophagitis; I10 Essential (primary) hypertension; H50.89 Other specified strabismus; M41.80 Other forms of scoliosis, site unspecified; F72 Severe intellectual disabilities; R11.10 Vomiting, unspecified; K56.69 Other intestinal obstruction; Z93.1 Gastrostomy status
CPT/HCPCS: 36415; 36600; 71010-TC; 71250-TC; 74000-TC; 74020-TC; 74176-TC; 80048; 80053; 81003; 82375; 82803; 83050; 83605; 83735; 85025; 85610; 85730; 87040; 87086; 87254; 87804; 93005; 93010; 99283-25; G0008; Q2037

== ENCOUNTER 2017-09-04 19:07 | Inpatient (IN) | payer OTHER ==
[2017-09-04] MEDS ORDERED: SODIUM CHLORIDE 0.9% 1000 ML INFUS.BAG IV ONE (19:31)
--- NOTE | 2017-09-04 19:47 | PDOC ---
History of Present Illness - General History Source: Patient Exam Limitations: No Limitations <MaryamdannieBri - Last Filed: 09/05/17 00:26> - History of Present Illness Initial Comments: 09/05/17 02:33 The patient is a 22 year old male with past medical history of cerebral palsy, cortical blindness, spastic quadriplegia, YAKELIN, GERD, hypertension, strabismus, and scoliosis who was sent to the ED from [facility] for two days of fever and low oxygen level. As per accompanying aid, the patient is at his baseline in mental status. History is limited due to patient's baseline mental status. <Samra Tejada - Last Filed: 09/05/17 02:43> - General Chief Complaint: Shortness of Breath Stated Complaint: SOB Time Seen by Provider: 09/04/17 19:40 Past History <Bri Myers - Last Filed: 09/05/17 00:26> - Past Medical History COPD: No HTN: Yes Seizures: Yes Other medical history: cerebral palsy, Spastic Quadraplegia, Obstructive sleep apnea - Suicide/Smoking/Psychosocial Hx Smoking History: Never smoked Have you smoked in the past 12 months: No Hx Alcohol Use: No Drug/Substance Use Hx: No Substance Use Type: None Hx Substance Use Treatment: No <Samra Tejada - Last Filed: 09/05/17 02:43> - Past Medical History Allergies/Adverse Reactions: Allergies Allergy/AdvReac Type Severity Reaction Status Date / Time chloral hydrate Allergy Verified 09/04/17 19:32 piperacillin sodium Allergy Verified 09/04/17 19:32 [From Zosyn] tazobactam sodium Allergy Verified 09/04/17 19:32 [From Zosyn] Home Medications: Ambulatory Orders Albuterol 0.083% Nebulizer Martha [Ventolin 0.083% Nebulizer Soln -] 1 neb NEB QID PRN 12/03/16 Clobetasol Propionate/Emoll [Clobetasol Emollient 0.05% Crm] 15 gm TP DAILY 01/14 Diazepam 2 mg PO TID 12/03/16 Gabapentin 400 mg PO BID 12/03/16 Glycopyrrolate in Water/Pf [Glycopyrrolate 1 mg/5 ml-Water] 1 mg IV BID Lacosamide [Vimpat -] 50 mg PO BID 12/03/16 Montelukast Na [Singulair -] 5 mg PO HS 12/03/16 Phenobarbital 20 mg GT DAILY 12/03/16 Scopolamine [Transderm-Scop] 1 each TD Q2D 12/03/16 Albuterol 2.5/Ipratropium 0.5 [Duoneb -] 1 neb IH QID 09/04/17 Lactulose [Cephulac -] 30 ml GT DAILY 09/04/17 Levetiracetam [Keppra Oral Solution -] 1,500 mg GT DAILY 09/04/17 Levetiracetam [Keppra Oral Solution -] 1,700 mg GT HS 09/04/17 Review of Systems - Review of Systems Comments:: 09/05/17 02:33 Unable to obtain. <Samra Tejada - Last Filed: 09/05/17 02:43> *Physical Exam - Vital Signs Last Vital Signs Temp Pulse Resp BP Pulse Ox 97.3 F L 94 H 22 99/66 98 09/04/17 19:32 09/04/17 21:46 09/04/17 21:46 09/04/17 21:46 09/04/17 21:46 <Bri Myers - Last Filed: 09/05/17 00:26> - Vital Signs Last Vital Signs Temp Pulse Resp BP Pulse Ox 97.3 F L 94 H 24 85/40 90 L 09/04/17 19:32 09/04/17 19:32 09/04/17 19:32 09/04/17 19:32 09/04/17 19:43 - Physical Exam Comments: 09/05/17 02:33 GENERAL: eyes closed, non verbal. BP 96/66 HEAD: No signs of trauma ENT: large tongue, protruding from mouth (at baseline per pt's aide) LUNGS: Breath sounds equal, clear to auscultation bilaterally. No wheezes, and no crackles. O2 sat 90% RA, 98% on 2L NC HEART: Regular rate and rhythm, normal S1 and S2, no murmurs, rubs or gallops ABDOMEN: +distention, no rigidity. G tube in place with no erythema at site of insertion. SKIN: Warm, Dry, normal turgor, no rashes or lesions noted. <Samra Tejada - Last Filed: 09/05/17 02:43> ED Treatment Course - LABORATORY CBC & Chemistry Diagram: 09/04/17 20:15 09/04/17 20:15 - ADDITIONAL ORDERS Additional order review: Laboratory Results 09/04/17 09/04/17 09/04/17 20:40 20:15 20:15 PT with INR INR PTT (Actin FS) VBG pH POC VBG pCO2 POC VBG pO2 Mixed VBG HCO3 Sodium Potassium Chloride Carbon Dioxide Anion Gap BUN Creatinine Creat Clearance w eGFR Random Glucose Lactic Acid 0.6 Calcium Total Bilirubin AST ALT Alkaline Phosphatase Creatine Kinase Creatine Kinase Index CK-MB (CK-2) Troponin I Total Protein Albumin Urine Color Yellow Urine Appearance Cloudy Urine pH 8.0 Ur Specific [place] 1.012 Urine Protein Negative Urine Glucose (UA) Negative Urine Ketones Negative Urine Blood 1+ H Urine Nitrite Negative Urine Bilirubin Negative Urine Urobilinogen Negative Ur Leukocyte Esterase Negative Urine WBC (Auto) None Urine RBC (Auto) 4 Amorphous Phosphates Moderate Urine Mucus Rare Blood Type O POSITIVE Antibody Screen Negative 09/04/17 09/04/17 09/04/17 20:15 20:15 20:15 PT with INR 19.50 H INR 1.73 H PTT (Actin FS) 33.7 VBG pH 7.43 H POC VBG pCO2 37.8 L POC VBG pO2 110.0 H Mixed VBG HCO3 24.4 Sodium 140 Potassium 3.2 L Chloride 106 Carbon Dioxide 26 Anion Gap 8 BUN 5 L Creatinine 0.4 L Creat Clearance w eGFR > 60 Random Glucose 83 Lactic Acid Calcium 8.6 Total Bilirubin 0.5 D AST 14 L D ALT 35 D Alkaline Phosphatase 135 H Creatine Kinase 155 Creatine Kinase Index 1.1 CK-MB (CK-2) 1.795 Troponin I < 0.02 Total Protein 7.3 Albumin 3.5 Urine Color Urine Appearance Urine pH Ur Specific [place] Urine Protein Urine Glucose (UA) Urine Ketones Urine Blood Urine Nitrite Urine Bilirubin Urine Urobilinogen Ur Leukocyte Esterase Urine WBC (Auto) Urine RBC (Auto) Amorphous Phosphates Urine Mucus Blood Type Antibody Screen 09/04/17 20:15 RBC 4.04 MCV 97.4 H MCHC 34.0 RDW 14.3 MPV 6.9 L D Neutrophils % 74.7 D Lymphocytes % 20.1 D Monocytes % 3.2 L Eosinophils % 1.6 Basophils % 0.4 - RADIOLOGY Radiograph Interpretation: 09/04/17 23:38 Chest X-ray as reviewed by Dr. Macedo reports moderate elevation of right hemidiaphragm. Bilateral increased interstitial markings without definite infiltrates. Mild air filled bowel loops in upper abdomen. Lucency under right hemidiaphragm. Rule out free air. CT abdomen and pelvis as reviewed by Dr. Macedo reports significant air distention likely the colon measuring 8.2 cm in diameter. Significant free air seen anteriorly compatible with perforated viscus, the origin of which could not be determined. - Medications Given in the ED: ED Medications Discontinued Medications Generic Name Dose Route Start Last Admin Trade Name Freq PRN Reason Stop Dose Admin Levofloxacin 750 mg in 150 mls @ 100 mls/hr 09/04/17 20:53 09/04/17 21:26 Levaquin 750 Mg Premixed Ivpb - IVPB 09/04/17 22:22 100 mls/hr ONCE ONE Administration Vancomycin HCl 1,000 mg/ 250 mls @ 250 mls/hr 09/04/17 20:52 09/04/17 22:33 Dextrose IVPB 09/04/17 21:51 250 mls/hr ONCE ONE Administration Protocol Sodium Chloride 2,000 ml 09/04/17 19:31 09/04/17 20:23 Normal Saline - IV 09/04/17 19:32 2,000 ml ONCE ONE Administration <Bri Myers - Last Filed: 09/05/17 00:26> - LABORATORY CBC & Chemistry Diagram: 09/04/17 20:15 09/04/17 20:15 - RADIOLOGY Radiology Studies Ordered: Category Date Time Status CHEST X-RAY PORTABLE* [RAD] Stat Radiology 09/04/17 19:31 Ordered <Samra Tejada - Last Filed: 09/05/17 02:43> Medical Decision Making - Medical Decision Making 09/04/17 23:36 Documentation prepared by Bri Myers, acting as medical appointment scheduler for Samra Tejada MD. 12:00 Call placed to soa integration developer surgeon, Dr. Cooley and call connected immediately and case discussed. <Bri Myers - Last Filed: 09/05/17 00:26> - Medical Decision Making 09/04/17 21:50 Rpt bp 96/66, O2 sat 97% RA. CXR with possible free air, will obtain CTAP for further eval 09/05/17 01:37 22-year-old male with a history of cerebral palsy presents with fever to 102, hypoxia to the low 90s, and hypotension to 80s systolic. Exam remarkable for distended abdomen. Given initial hypotension, hypoxia and fevers, I cover the patient with vancomycin and Levaquin (patient has ALLERGY to Zosyn and meropenem ). BP has responded to 2L NS, is now consistently in high 90s systolic or 60s. Labs remarkable for mild leukocytosis to 11, chest x-ray concerning for possible free air in the abdominal cavity. CT scan confirms free air consistent with perforated viscus. Surgery consult that he immediately, spoke with Dr. Cooley who will evaluate the patient. Added Flagyl for additional intra- abdominal coverage. Discussed case with Dr. Ochoa in the ED at 1:30am, patient admitted to [facility]. Case discussed in detail with admitting physician including history, physical exam and ancillary studies. Admitting physician has assumed care for the patient, will follow all pending diagnostics and will complete the evaluation and treatment. <Samra Tejada - Last Filed: 09/05/17 02:43> *DC/Admit/Observation/Transfer - Attestations Scribe Attestion: 09/04/17 23:42 Documentation prepared by Bri Myers, acting as medical appointment scheduler for Samra Tejada MD. <Bri Myers - Last Filed: 09/05/17 00:26> - Discharge Dispostion Admit: Yes - Attestations Physician Attestion: 09/05/17 02:43 I, Dr. Samra Tejada MD, attest that this document has been prepared under my direction and personally reviewed by me in its entirety. I further attest, that it accurately reflects all work, treatment, procedures and medical decision -making performed by me. <Samra Tejada - Last Filed: 09/05/17 02:43> Diagnosis at time of Disposition: Perforated abdominal viscus - Discharge Dispostion Condition at time of disposition: Guarded - Referrals Referrals: Ignacio Vo MD [Primary Care Provider] -
[2017-09-04 20:27] LABS: BASO % 0.4 % (0-2.0); EOS % 1.6 % (0-4.5); HEMATOCRIT 39.4 % (35.4-49); HEMOGLOBIN 13.4 GM/dL (11.7-16.9); LYMPH % 20.1 % (8-40); MCH 33.2 pg (25.7-33.7); MEAN CELL VOLUME 97.4 fl (80-96); MEAN PLT VOLUME 6.9 fl (7.5-11.1); MONO % 3.2 % (3.8-10.2); NEUT % 74.7 % (42.8-82.8); PLATELET COUNT 398 K/MM3 (134-434); RBC 4.04 M/mm3 (4.00-5.60); RDW 14.3 % (11.9-15.9); WHITE BLOOD COUNT 10.8 K/mm3 (4.0-10.0)
[2017-09-04 20:29] LABS: VENOUS PC02 37.8 mmHg (38-52); VENOUS PH 7.43 (7.32-7.42)
[2017-09-04 20:51] LABS: URINE APPEARANCE CLOUDY; URINE BILIRUBIN NEGATIVE (NEGATIVE); URINE BLOOD 1+ (NEGATIVE); URINE COLOR YELLOW; URINE GLUCOSE (UA) NEGATIVE (NEGATIVE); URINE KETONE NEGATIVE (NEGATIVE); URINE LEUK ESTERASE NEGATIVE (NEGATIVE); URINE NITRITE NEGATIVE (NEGATIVE); URINE PROTEIN NEGATIVE (NEGATIVE); URINE UROBILINOGEN NEGATIVE mg/dL (0.2-1.0)
[2017-09-04] MEDS ORDERED: VANCOMYCIN 1,000 MG in DEXTROSE 5%-WATER - 250 ML IVPB ONE (20:52)
[2017-09-04] MEDS ORDERED: LEVOFLOXACIN 750 MG IVPB 750 MG/150 ML BAG IVPB ONE ×2 (20:53→21:11)
[2017-09-04 20:54] LABS: INR 1.73 (0.82-1.09); PROTHROMBIN TIME (PATIENT) 19.5 SEC (9.98-11.88)
[2017-09-04 20:57] LABS: ACTIVATED PTT 33.7 SECONDS (26.9-34.4)
[2017-09-04 20:59] LABS: URINE MUCUS RARE
[2017-09-04 21:03] LABS: ALBUMIN 3.5 g/dl (3.4-5.0); ANION GAP 8 (8-16); BILIRUBIN,TOTAL 0.5 mg/dL (0.2-1.0); BLOOD UREA NITROGEN 5 mg/dL (7-18); CALCIUM 8.6 mg/dL (8.5-10.1); CHLORIDE 106 mmol/L (98-107); CO2 26 mmol/L (21-32); CREATININE 0.4 mg/dL (0.7-1.3); GLUCOSE,RANDOM 83 mg/dL (74-106); POTASSIUM 3.2 mmol/L (3.5-5.1); SGOT/AST 14 U/L (15-37); SGPT/ALT 35 U/L (12-78); SODIUM 140 mmol/L (136-145); TOT PROT 7.3 g/dl (6.4-8.2)
[2017-09-04 21:05] LABS: ALK PHOS 135 U/L (45-117)
[2017-09-04 21:33] LABS: AMORP PHOS MODERATE /hpf (NONE SEEN)
[2017-09-04] MEDS ORDERED: VANCOMYCIN 1 GRAM (PRE-DOCKED) 1,000 MG/250 ML BAG IVPB ONE (22:30)
[2017-09-04] MEDS ORDERED: METRONIDAZOLE 500 MG PREMIXED 500 MG/100 ML MG IVPB ONE (23:43)
[2017-09-05] MEDS ORDERED: ceFAZolin SODIUM 1 GM VIAL IVPB ONE
[2017-09-05] MEDS ORDERED: METRONIDAZOLE 500 MG PREMIXED 500 MG/100 ML MG IVPB ONE (00:17)
--- NOTE | 2017-09-05 03:17 | HP ---
CHIEF COMPLAINT: fever PCP: Dr. Bigg Aleman at [facility] [phone] HISTORY OF PRESENT ILLNESS: The pt is a 22 year old male with a significant PMH of cortical blindness, cerebral palsy, spastic quadriplegia, seizure disorder, reactive airway disease , YAKELIN, GERD, HTN, strabismus, scoliosis, nonverbal presents to ED brought by ambulance from [facility] for fever recorded rectally as 97.3 and hypotension. Upon arrival to ED his HR was 94, RR 24, BP 85/40 and oxygen sat 90 on 2 L. he had imaging studies done that revealed free air in abdominal cavity. History was taken from [place] medical documentation that was brought with the patient. No family at bedside. Nurse aid was present but she didn't know what happened to the patient. Mother: Mackenzie Zarate work: [phone] ER course was notable for: (1)CT abomen (2)Oxy Sat. 94, RR 24, BP 85/40 (3)levofloxacin, Flagyl Recent Travel: no PAST MEDICAL HISTORY: as above PAST SURGICAL HISTORY: n/a Social History: Smoking:no Alcohol:no Drugs:no Family History: n/a Allergies chloral hydrate Allergy (Verified 09/04/17 19:32) piperacillin sodium [From Zosyn] Allergy (Verified 09/04/17 19:32) tazobactam sodium [From Zosyn] Allergy (Verified 09/04/17 19:32) HOME MEDICATIONS: Home Medications Medication Instructions Recorded Albuterol 0.083% Nebulizer Martha 1 neb NEB QID PRN 12/03/16 [Ventolin 0.083% Nebulizer Soln -] Clobetasol Propionate/Emoll 15 gm TP DAILY 12/03/16 [Clobetasol Emollient 0.05% Crm] Diazepam 2 mg PO TID 12/03/16 Gabapentin 400 mg PO BID 12/03/16 Glycopyrrolate in Water/Pf 1 mg IV BID 12/03/16 [Glycopyrrolate 1 mg/5 ml-Water] Lacosamide [Vimpat -] 50 mg PO BID 12/03/16 Montelukast Na [Singulair -] 5 mg PO HS 12/03/16 Phenobarbital 20 mg GT DAILY 12/03/16 Scopolamine [Transderm-Scop] 1 each TD Q2D 12/03/16 Albuterol 2.5/Ipratropium 0.5 1 neb IH QID 09/04/17 [Duoneb -] Lactulose [Cephulac -] 30 ml GT DAILY 09/04/17 Levetiracetam [Keppra Oral 1,500 mg GT DAILY 09/04/17 Solution -] Levetiracetam [Keppra Oral 1,700 mg GT HS 09/04/17 Solution -] REVIEW OF SYSTEMS N/A, The pt is non verbal PHYSICAL EXAMINATION Vital Signs - 24 hr 09/04/17 09/04/17 09/04/17 19:32 19:40 19:43 Temperature 97.3 F L Pulse Rate 94 H Pulse Rate [ Apical] Respiratory 24 Rate Blood Pressure 85/40 Blood Pressure [Right Arm] O2 Sat by Pulse 90 L 90 L 90 L Oximetry (%) 09/04/17 09/05/17 21:46 00:20 Temperature Pulse Rate Pulse Rate [ 94 H 78 Apical] Respiratory 22 20 Rate Blood Pressure Blood Pressure 99/66 97/67 [Right Arm] O2 Sat by Pulse 98 95 Oximetry (%) GENERAL: Lethargic, in moderate acute distress. HEAD: Normal with no signs of trauma, microcephaly. EYES: Pupils equal, round and reactive to light. EARS, NOSE, THROAT: oropharynx clear without exudates, tongue protruding, moist. NECK: supple without lymphadenopathy, LUNGS: Breath sounds equal, clear to auscultation bilaterally. No wheezes, and no crackles. No accessory muscle use. HEART: Regular rate and rhythm, normal S1 and S2 without murmur, rub or gallop. ABDOMEN: Soft, distended, hypoactive bowel sounds, no guarding, no rebound, peg tube inserted, no skin changes. MUSCULOSKELETAL: No bony deformities or tenderness. UPPER EXTREMITIES: 2+ pulses, warm. No cyanosis. No clubbing. No peripheral edema, shortened limbs. LOWER EXTREMITIES: 2+ pulses, warm. No calf tenderness. No peripheral edema, shortened limbs. NEUROLOGICAL: Non verbal SKIN: Warm, dry, normal turgor, no rashes or lesions noted Laboratory Results - last 24 hr 09/04/17 09/04/17 09/04/17 20:15 20:15 20:15 WBC 10.8 H D RBC 4.04 Hgb 13.4 Hct 39.4 MCV 97.4 H MCH 33.2 MCHC 34.0 RDW 14.3 Plt Count 398 D MPV 6.9 L D Neutrophils % 74.7 D Lymphocytes % 20.1 D Monocytes % 3.2 L Eosinophils % 1.6 Basophils % 0.4 PT with INR 19.50 H INR 1.73 H PTT (Actin FS) 33.7 VBG pH 7.43 H POC VBG pCO2 37.8 L POC VBG pO2 110.0 H Mixed VBG HCO3 24.4 Sodium Potassium Chloride Carbon Dioxide Anion Gap BUN Creatinine Creat Clearance w eGFR Random Glucose Lactic Acid Calcium Total Bilirubin AST ALT Alkaline Phosphatase Creatine Kinase Creatine Kinase Index CK-MB (CK-2) Troponin I Total Protein Albumin Urine Color Urine Appearance Urine pH Ur Specific [place] Urine Protein Urine Glucose (UA) Urine Ketones Urine Blood Urine Nitrite Urine Bilirubin Urine Urobilinogen Ur Leukocyte Esterase Urine WBC (Auto) Urine RBC (Auto) Amorphous Phosphates Urine Mucus Blood Type Antibody Screen 09/04/17 09/04/17 09/04/17 20:15 20:15 20:15 WBC RBC Hgb Hct MCV MCH MCHC RDW Plt Count MPV Neutrophils % Lymphocytes % Monocytes % Eosinophils % Basophils % PT with INR INR PTT (Actin FS) VBG pH POC VBG pCO2 POC VBG pO2 Mixed VBG HCO3 Sodium 140 Potassium 3.2 L Chloride 106 Carbon Dioxide 26 Anion Gap 8 BUN 5 L Creatinine 0.4 L Creat Clearance w eGFR > 60 Random Glucose 83 Lactic Acid 0.6 Calcium 8.6 Total Bilirubin 0.5 D AST 14 L D ALT 35 D Alkaline Phosphatase 135 H Creatine Kinase 155 Creatine Kinase Index 1.1 CK-MB (CK-2) 1.795 Troponin I < 0.02 Total Protein 7.3 Albumin 3.5 Urine Color Urine Appearance Urine pH Ur Specific [place] Urine Protein Urine Glucose (UA) Urine Ketones Urine Blood Urine Nitrite Urine Bilirubin Urine Urobilinogen Ur Leukocyte Esterase Urine WBC (Auto) Urine RBC (Auto) Amorphous Phosphates Urine Mucus Blood Type O POSITIVE Antibody Screen Negative 09/04/17 20:40 WBC RBC Hgb Hct MCV MCH MCHC RDW Plt Count MPV Neutrophils % Lymphocytes % Monocytes % Eosinophils % Basophils % PT with INR INR PTT (Actin FS) VBG pH POC VBG pCO2 POC VBG pO2 Mixed VBG HCO3 Sodium Potassium Chloride Carbon Dioxide Anion Gap BUN Creatinine Creat Clearance w eGFR Random Glucose Lactic Acid Calcium Total Bilirubin AST ALT Alkaline Phosphatase Creatine Kinase Creatine Kinase Index CK-MB (CK-2) Troponin I Total Protein Albumin Urine Color Yellow Urine Appearance Cloudy Urine pH 8.0 Ur Specific [place] 1.012 Urine Protein Negative Urine Glucose (UA) Negative Urine Ketones Negative Urine Blood 1+ H Urine Nitrite Negative Urine Bilirubin Negative Urine Urobilinogen Negative Ur Leukocyte Esterase Negative Urine WBC (Auto) None Urine RBC (Auto) 4 Amorphous Phosphates Moderate Urine Mucus Rare Blood Type Antibody Screen ASSESSMENT/PLAN: The pt is a 22 year old male with a significant PMH of cortical blindness, cerebral palsy, spastic quadriplegia, seizure disorder, reactive airway disease , YAKELIN, GERD, HTN, strabismus, scoliosis, nonverbal presents to ED brought by ambulance from [facility] for fever recorded rectally as 97.3 and hypotension. he is admitted for perforated viscus; perforated viscus: -contacted Dr. Cooley who is planning to evaluate patient and take him for surgery -NPo -NS at rate 75 ml/hr -coag studies -type and screen -Levofloxacin 750 mg qd and Flagyl 500 mg Q6h started in ED, will continue -ID consult ordered -IV tlenol for pain and fever -blood cultures and urine cultures ordered Seizure disorder; -hold home meds for now Reactive airway disease; -hold home meds for now F/E/N: NS/no/NPO DVT PPX; hold hearin due to plans for surgery SCDs Dispo; med surg, OR Problem List - Problem (1) Perforated abdominal viscus Code(s): CNY7119 - (2) DVT prophylaxis Code(s): HSP0724 - (3) Reactive airway disease Code(s): J45.909 - UNSPECIFIED ASTHMA, UNCOMPLICATED (4) Seizure disorder Code(s): G40.909 - EPILEPSY, UNSP, NOT INTRACTABLE, WITHOUT STATUS EPILEPTICUS Visit type - Emergency Visit Emergency Visit: Yes ED Registration Date: 09/05/17 Care time: The patient presented to the Emergency Department on the above date and was hospitalized for further evaluation of their emergent condition. - New Patient This patient is new to me today: No - Critical Care Critical Care patient: No
[2017-09-05] MEDS: SODIUM CHLORIDE 1,000 ML IV SCH ×2 (03:52→06:06)
[2017-09-05] MEDS ORDERED: ACETAMINOPHEN 650 MG SUPP.RECT PR PRN (05:19)
--- NOTE | 2017-09-05 05:22 | PN ---
Teaching Attending Note Name of Resident: Marilee Scales ATTENDING PHYSICIAN STATEMENT I saw and evaluated the patient. I reviewed the resident's note and discussed the case with the resident. I agree with the resident's findings and plan as documented. SUBJECTIVE: 22 y/o CP [facility] patient brought to ED for fever and on evaluation CT showed perforated viscus. Surgery called and plans for surgical repair by Dr Cooley. PMH of seizure, reactive airway disease and YAKELIN. OBJECTIVE: Gen: Non-verbal, deformed small body habitus HEENT: Macrocephaly and macroglossia LUNGS: Rhonchi CVS: RRR Ext: Palpable pulses, no edema CBCD WBC 10.8 K/mm3 (4.0-10.0) H D 09/04/17 20:15 RBC 4.04 M/mm3 (4.00-5.60) 09/04/17 20:15 Hgb 13.4 GM/dL (11.7-16.9) 09/04/17 20:15 Hct 39.4 % (35.4-49) 09/04/17 20:15 MCV 97.4 fl (80-96) H 09/04/17 20:15 MCHC 34.0 g/dl (32.0-35.9) 09/04/17 20:15 RDW 14.3 % (11.9-15.9) 09/04/17 20:15 Plt Count 398 K/MM3 (134-434) D 09/04/17 20:15 MPV 6.9 fl (7.5-11.1) L D 09/04/17 20:15 CMP Sodium 140 mmol/L (136-145) 09/04/17 20:15 Potassium 3.2 mmol/L (3.5-5.1) L 09/04/17 20:15 Chloride 106 mmol/L (98-107) 09/04/17 20:15 Carbon Dioxide 26 mmol/L (21-32) 09/04/17 20:15 Anion Gap 8 (8-16) 09/04/17 20:15 BUN 5 mg/dL (7-18) L 09/04/17 20:15 Creatinine 0.4 mg/dL (0.7-1.3) L 09/04/17 20:15 Creat Clearance w eGFR > 60 (>60) 09/04/17 20:15 Random Glucose 83 mg/dL (74-106) 09/04/17 20:15 Calcium 8.6 mg/dL (8.5-10.1) 09/04/17 20:15 Total Bilirubin 0.5 mg/dL (0.2-1.0) D 09/04/17 20:15 AST 14 U/L (15-37) L D 09/04/17 20:15 ALT 35 U/L (12-78) D 09/04/17 20:15 Alkaline Phosphatase 135 U/L (45-117) H 09/04/17 20:15 Total Protein 7.3 g/dl (6.4-8.2) 09/04/17 20:15 Albumin 3.5 g/dl (3.4-5.0) 09/04/17 20:15 CARDIAC ENZYMES Creatine Kinase 155 IU/L (39-308) 09/04/17 20:15 Troponin I < 0.02 ng/ml (0.00-0.05) 09/04/17 20:15 CT abdomen: Distended bowel loop, free air in anterior abdomen, possibly due to perforated viscus. ASSESSMENT AND PLAN: Bowel perforation- NPO, IVF, Flagyl 500 mg q8h (adjusted for patient's size) and Cipro. Follow Cultures Tylenol suppository prn CBC, CMP, Coag Surgery Dr Cooley consulted Seizures continue keppra via IV Reactive airway disease nebs q6h. Case discussed with resident and plans agrees
[2017-09-05 05:48] VITALS: BMI 24.7
[2017-09-05] MEDS ORDERED: PNEUMOC 13-VAL CONJ-DIP CRM/PF 0.5 ML DISP.SYRIN IM ONE (05:52)
[2017-09-05] MEDS ORDERED: ALBUTEROL SO4 2.5/IPRATROPIUM 0.5 INH SOL 3 ML VIAL.NEB. NEB SCH (06:00)
[2017-09-05] MEDS: METRONIDAZOLE 500 MG PREMIXED 500 MG/100 ML MG IVPB SCH ×2 (06:06→14:20)
[2017-09-05] MEDS ORDERED: METRONIDAZOLE 500 MG PREMIXED 500 MG/100 ML MG IVPB SCH (08:00)
[2017-09-05] MEDS ORDERED: PNEUMOCOCCAL 23 VACCINE 0.5 ML VIAL IM ONE (09:00)
--- NOTE | 2017-09-05 09:00 | PN ---
Progress Note, Physician Chief Complaint: ID His aide says he was having fever in the facility. - Current Medication List Current Medications: Active Medications Acetaminophen (Tylenol Suppository -) 650 mg MD Q6H PRN PRN Reason: FEVER OR PAIN Albuterol/Ipratropium (Duoneb -) 1 amp NEB QIDR AUNG Sodium Chloride (Normal Saline -) 1,000 mls @ 75 mls/hr IV ASDIR AUNG Last Admin: 09/05/17 06:06 Dose: 75 mls/hr Levofloxacin (Levaquin 750 Mg Premixed Ivpb -) 750 mg in 150 mls @ 150 mls/hr IVPB HS AUNG Metronidazole (Flagyl 500mg Premixed Ivpb -) 500 mg in 100 mls @ 100 mls/hr IVPB Q8H-IV AUNG Last Admin: 09/05/17 06:06 Dose: 100 mls/hr Pneumococcal Polyvalent Vaccine (Pneumovax -) 0.5 ml IM .ONCE ONE Stop: 09/05/17 09:01 - Objective Vital Signs: Vital Signs Temperature 97.6 F 09/05/17 05:32 Pulse Rate 96 H 09/05/17 05:32 Respiratory Rate 16 09/05/17 05:32 Blood Pressure 116/76 09/05/17 05:32 O2 Sat by Pulse Oximetry (%) 95 09/05/17 05:32 Gastrointestinal: Yes: Distention, Hypoactive Bowel Sounds, Other (leaking around PEG). No: Tenderness Labs: CBC, BMP 09/04/17 20:15 09/04/17 20:15 INR, PTT INR 1.73 (0.82-1.09) H 09/04/17 20:15 Problem List - Problems (1) Fever Code(s): R50.9 - FEVER, UNSPECIFIED (2) Perforated abdominal viscus Code(s): FKI4760 - Assessment/Plan Microbiology 09/04/17 22:40 Nasopharyngeal Swab Influenza Types A,B Antigen (CHLOÉ) - Final 09/04/17 22:40 Nasopharyngeal Swab - Final Laboratory Tests 09/04/17 09/04/17 20:15 20:15 WBC 10.8 H D Hgb 13.4 Hct 39.4 Plt Count 398 D BUN 5 L Creatinine 0.4 L Assessment PEG feeding tube Abd distention with CT consistent with perforation Plan Cultures sent Empiric Ceftriaxone and metronidazole Surgical consult pending CRP Meggan SHIRLEY
--- NOTE | 2017-09-05 09:46 | CONS ---
INFECTIOUS DISEASE CONSULTATION DATE OF CONSULTATION: 09/05/2017 HISTORY OF PRESENT ILLNESS: This is a 22-year-old male from the [facility], cerebral palsy, cortical blindness, spastic quadriplegia, admitted through the emergency room with a history of fever for 2 days and low oxygen levels. The patient can offer no history. Part of his workup here included a CAT scan of the abdomen, which showed significant air distension of the colon with significant amount of free air seen, compatible with a perforated viscus. The etiology of this could not be determined. The patient was given a dose of antibiotic with metronidazole and levofloxacin. He has a history of a PIPERACILLIN allergy, unknown nature of the reaction. He can offer no history. PAST MEDICAL HISTORY: As noted above. MEDICATIONS: In the facility includes gabapentin, Singulair, phenobarbital, and Keppra. SOCIAL HISTORY: Resident of a long-term healthcare facility. FAMILY HISTORY: Unobtainable. REVIEW OF SYSTEMS: Respiratory: No shortness of breath, cough. Cardiac: No history of congenital heart disease. Gastrointestinal: PEG feeding tube, abdominal distention. Genitourinary: Incontinent of urine. PHYSICAL EXAMINATION: General: Revealed a contracted young man. Vital Signs: Weight 88 pounds. Temperature 97.6, pulse 96, blood pressure 116/76, respirations 16, O2 saturation 95% 2 L nasal cannula. Lungs: With diminished breath sounds bilaterally. Heart: S1 and S2. Regular rhythm. No audible murmur. Abdomen: With hypoactive bowel sounds. A PEG feeding tube with drainage around the tube. No erythema. Rigid abdomen, appears hard. No obvious tenderness. Extremities: No clubbing, cyanosis, or edema. Contracted. DIAGNOSTIC DATA: The white count is 10.8, hemoglobin 13.4, platelets 398. Chemistries within normal limit including lactic acid of 0.6. Two sets of blood cultures pending. This morning, no growth. Chest x-ray shows free air in the upper abdomen. ASSESSMENT: A 22-year-old male with history of recent fever, noted to have abdominal distention on examination with a leaking percutaneous endoscopic gastrostomy tube and a CAT scan consistent with a perforated viscus, unknown origin. The abdomen is tense, otherwise difficult to assess for tenderness given the patient's profound mental retardation. He will be empirically treated with ceftriaxone and metronidazole. Surgical consult with Dr. Cooley already requested and pending. X-ray findings in the chest consistent with atelectasis and hypoxemia, possibly secondary to atelectasis and/or sepsis. MORGAN ROSAS M.D. [id number]
--- NOTE | 2017-09-05 09:59 | CONSULT ---
- Consultation REQUESTING PROVIDER: Saadia Tejada MD CONSULT REQUEST: We have been asked to surgically evaluate this patient for ( specify). PCP:Adelia Mccall HISTORY OF PRESENT ILLNESS: [facility] xferred from [facility] for abdominal distention and diff breathing; w/u in the ER reveals pneumoperitoneum PMHx: CP/blindness/scoliosis/seizures PSHx: G tube since Home Medications Medication Instructions Recorded Albuterol 0.083% Nebulizer Martha 1 neb NEB QID PRN 12/03/16 [Ventolin 0.083% Nebulizer Soln -] Clobetasol Propionate/Emoll 15 gm TP DAILY 12/03/16 [Clobetasol Emollient 0.05% Crm] Diazepam 2 mg PO TID 12/03/16 Gabapentin 400 mg PO BID 12/03/16 Glycopyrrolate in Water/Pf 1 mg IV BID 12/03/16 [Glycopyrrolate 1 mg/5 ml-Water] Lacosamide [Vimpat -] 50 mg PO BID 12/03/16 Montelukast Na [Singulair -] 5 mg PO HS 12/03/16 Phenobarbital 20 mg GT DAILY 12/03/16 Scopolamine [Transderm-Scop] 1 each TD Q2D 12/03/16 Albuterol 2.5/Ipratropium 0.5 1 neb IH QID 09/04/17 [Duoneb -] Lactulose [Cephulac -] 30 ml GT DAILY 09/04/17 Levetiracetam [Keppra Oral 1,500 mg GT DAILY 09/04/17 Solution -] Levetiracetam [Keppra Oral 1,700 mg GT HS 09/04/17 Solution -] Allergies Allergy/AdvReac Type Severity Reaction Status Date / Time chloral hydrate Allergy Verified 09/04/17 19:32 piperacillin sodium Allergy Verified 09/04/17 19:32 [From Zosyn] tazobactam sodium Allergy Verified 09/04/17 19:32 [From Zosyn] PHYSICAL EXAM: GENERAL: Awake, not alert, and not fully oriented, in no acute distress. HEAD: Normal with no signs of trauma. EYES: sclera anicteric, conjunctiva clear. NECK: Limited ROM, supple without lymphadenopathy, JVD, or masses. ABDOMEN: Soft, nontender, not distended, normoactive bowel sounds, no guarding, no rebound, no masses. No organomegaly. MUSCULOSKELETAL: Abnormal ROM at all joints. Contracted UPPER EXTREMITIES: 2+ pulses, warm, well-perfused. No cyanosis. Cap refill <2 seconds. No peripheral edema. LOWER EXTREMITIES: 2+ pulses, warm, well-perfused. No calf tenderness. No peripheral edema. NEUROLOGICAL: No speech, gait not observed. PSYCH: . Poor eye contact. Inappropriate mood and affect. SKIN: Warm, dry, normal turgor, no rashes or lesions noted. Vital Signs Temperature 97.6 F 09/05/17 05:32 Pulse Rate 96 H 09/05/17 05:32 Respiratory Rate 16 09/05/17 05:32 Blood Pressure 116/76 09/05/17 05:32 O2 Sat by Pulse Oximetry (%) 95 09/05/17 05:32 Lab Results WBC 10.8 K/mm3 (4.0-10.0) H D 09/04/17 20:15 RBC 4.04 M/mm3 (4.00-5.60) 09/04/17 20:15 Hgb 13.4 GM/dL (11.7-16.9) 09/04/17 20:15 Hct 39.4 % (35.4-49) 09/04/17 20:15 MCV 97.4 fl (80-96) H 09/04/17 20:15 MCHC 34.0 g/dl (32.0-35.9) 09/04/17 20:15 RDW 14.3 % (11.9-15.9) 09/04/17 20:15 Plt Count 398 K/MM3 (134-434) D 09/04/17 20:15 Sodium 140 mmol/L (136-145) 09/04/17 20:15 Potassium 3.2 mmol/L (3.5-5.1) L 09/04/17 20:15 Chloride 106 mmol/L (98-107) 09/04/17 20:15 Carbon Dioxide 26 mmol/L (21-32) 09/04/17 20:15 Anion Gap 8 (8-16) 09/04/17 20:15 BUN 5 mg/dL (7-18) L 09/04/17 20:15 Creatinine 0.4 mg/dL (0.7-1.3) L 09/04/17 20:15 Random Glucose 83 mg/dL (74-106) 09/04/17 20:15 Calcium 8.6 mg/dL (8.5-10.1) 09/04/17 20:15 Blood Type O POSITIVE 09/04/17 20:15 Antibody Screen Negative 09/04/17 20:15 INR 1.73 (0.82-1.09) H 09/04/17 20:15 CT a/p reviewed and images IMP: pneumoperitoneum PLAN:Needs ex lap and AOSDN; d/w his mother at length at 1:30 AM and this morning and informed consent obtained; r/b/t/a's to surgery discussed and she wishes to proceed.Also d/w her source of pneumoperitoneum may NOT be found; past admission and documents from the facility reviewed. Ankit Cooley MD FACS Visit type - Case Type Case Type: ED Admission - Emergency Emergency Visit: Yes ED Registration Date: 09/05/17 Care time: The patient presented to the Emergency Department on the above date and was hospitalized for further evaluation of their emergent condition. - New patient This patient is new to me today: Yes Date on this admission: 09/05/17 - Critical Care Critical Care patient: No
[2017-09-05] MEDS ORDERED: CEFTRIAXONE 2 GM in DEXTROSE 5%-WATER - 100 ML IVPB SCH (10:00)
[2017-09-05] MEDS ORDERED: MIDAZOLAM HCL 2 MG/2 ML SINGLE DOSE VIAL ONE (10:12)
[2017-09-05] MEDS ORDERED: CEFTRIAXONE IN IS-OSM DEXTROSE 2 GM/50 ML BAG IVPB SCH (10:26)
[2017-09-05] MEDS ORDERED: LIDOCAINE HCL/PF 2% SDV 5ML VIAL ONE (10:38)
[2017-09-05] MEDS ORDERED: PROPOFOL 20 ML ONE (10:38)
[2017-09-05] MEDS ORDERED: ROCURONIUM BROMIDE 50 MG/5 ML VIAL ONE ×2 (10:39→12:21)
[2017-09-05] MEDS ORDERED: GLYCOPYRROLATE 0.2 MG/1 ML VIAL ONE ×2 (10:48→12:48)
[2017-09-05] MEDS ORDERED: ATROPINE SULFATE 1 MG/10 ML DISP.SYRIN ONE (11:02)
[2017-09-05] MEDS ORDERED: DEXAMETHASONE SOD PHOSPHATE 4 MG/1 ML VIAL ONE (11:39)
[2017-09-05] MEDS ORDERED: ONDANSETRON 4 MG/2 ML VIAL ONE (11:39)
[2017-09-05] MEDS ORDERED: ePHEDrine SULFATE 50 MG/1 ML AMPULE ONE (12:03)
[2017-09-05] MEDS ORDERED: NEOSTIGMINE METHYLSULFATE 0.5 MG/ML - 10 ML MDV ONE (12:48)
--- NOTE | 2017-09-05 12:49 | OP ---
Operative Note - Note: Operative Date: 09/05/17 Pre-Operative Diagnosis: pneumoperitoneum Operation: exploratory laparotomy Findings: no perforation of hollow viscus found; G tube intact Post-Operative Diagnosis: Other (no evidence of pneumoperitoneum) Surgeon: Ankit Cooley Anthropometrist: Kelli Etienne Anesthesia: General Specimens Removed: none Estimated Blood Loss (mls): 50
--- NOTE | 2017-09-05 13:26 | EKG ---
Test Reason : Blood Pressure : / mmHG Vent. Rate : 089 BPM Atrial Rate : 089 BPM P-R Int : 144 ms QRS Dur : 102 ms QT Int : 374 ms P-R-T Axes : 028 042 012 degrees QTc Int : 455 ms NORMAL SINUS RHYTHM INFERIOR INFARCT (CITED ON OR BEFORE 03-DEC-2016) ABNORMAL ECG WHEN COMPARED WITH ECG OF 03-DEC-2016 07:48, NO SIGNIFICANT CHANGE WAS FOUND Confirmed by JAY MIGUEL MD ([id number]) on 09/05/2017 1:26:30 PM Referred By: Confirmed By:JAY MIGUEL MD
[2017-09-05] MEDS ORDERED: KCL 10 MEQ IVPB 10 MEQ/100 ML INFUS.BAG IVPB SCH (14:00)
[2017-09-05] MEDS ORDERED: ACETAMINOPHEN 1000 MG/100 ML VIAL (NON FORMULARY) IVPB SCH (14:00)
[2017-09-05] MEDS ORDERED: morphine CARPU-JECT 2 MG/1 ML DISP.SYRIN IVPB PRN (14:03)
[2017-09-05] MEDS ORDERED: morphine SULFATE 4 MG/ML VIAL ONE (14:04)
[2017-09-05] MEDS: morphine CARPU-JECT 2 MG/1 ML DISP.SYRIN IVPUSH PRN ×2 (14:04→14:14)
--- NOTE | 2017-09-05 14:08 | SURG ---
Surgery Powerhouse Laborer Note Powerhouse Laborer: Kelli Etienne PA-C Date of Service: 09/05/17 Diagnosis: pneumoperitoneum Procedure: exploratory laparotomy I was present for the entirety of the operative procedure. For further detail, please refer to operative report. Visit type - Case Type Case Type: ED Admission - Emergency Emergency Visit: Yes ED Registration Date: 09/05/17 Care time: The patient presented to the Emergency Department on the above date and was hospitalized for further evaluation of their emergent condition. - New patient This patient is new to me today: Yes Date on this admission: 09/05/17
[2017-09-05] MEDS ORDERED: POTASSIUM CHLORIDE 20 MEQ in SODIUM CHLORIDE 250 ML IVPB ONE (14:30)
--- NOTE | 2017-09-05 15:27 | PN ---
Progress Note (short form) - Note Progress Note: attempted left groin TLC while in the operating room, dark blood return and after dilating the vessel pulsatile vessel bright red returned. TLC catheter not placed. Pressure held x 20 minutes. No evidence of hematoma. FFP given during and immediately post-op. Dressing remained dry.
[2017-09-05] MEDS: D5-1/2NS+20 MEQ KCL - 20 MEQ/1,000 ML INFUS.BAG IV SCH (15:30)
--- NOTE | 2017-09-05 17:00 | PN ---
Physical Exam: SUBJECTIVE: Patient seen and examined OBJECTIVE: Vital Signs Temperature 98.6 F 09/05/17 15:30 Pulse Rate 95 H 09/05/17 15:30 Respiratory Rate 18 09/05/17 15:30 Blood Pressure 113/77 09/05/17 15:30 O2 Sat by Pulse Oximetry (%) 99 09/05/17 15:30 GENERAL: The patient is awake, alert, and fully oriented, in no acute distress. HEAD: Normal with no signs of trauma. EYES: PERRL, extraocular movements intact, sclera anicteric, conjunctiva clear. No ptosis. ENT: Ears normal, nares patent, oropharynx clear without exudates, moist mucous membranes. NECK: Trachea midline, full range of motion, supple. LUNGS: Breath sounds equal, clear to auscultation bilaterally, no wheezes, no crackles, no accessory muscle use. HEART: Regular rate and rhythm, S1, S2 without murmur, rub or gallop. ABDOMEN: Soft, nontender, nondistended, normoactive bowel sounds, no guarding, no rebound, no hepatosplenomegaly, no masses. EXTREMITIES: 2+ pulses, warm, well-perfused, no edema. NEUROLOGICAL: Cranial nerves II through XII grossly intact. Normal speech, gait not observed. PSYCH: Normal mood, normal affect. SKIN: Warm, dry, normal turgor, no rashes or lesions noted CBCD WBC 10.8 K/mm3 (4.0-10.0) H D 09/04/17 20:15 RBC 4.04 M/mm3 (4.00-5.60) 09/04/17 20:15 Hgb 13.4 GM/dL (11.7-16.9) 09/04/17 20:15 Hct 39.4 % (35.4-49) 09/04/17 20:15 MCV 97.4 fl (80-96) H 09/04/17 20:15 MCHC 34.0 g/dl (32.0-35.9) 09/04/17 20:15 RDW 14.3 % (11.9-15.9) 09/04/17 20:15 Plt Count 398 K/MM3 (134-434) D 09/04/17 20:15 MPV 6.9 fl (7.5-11.1) L D 09/04/17 20:15 CMP Sodium 140 mmol/L (136-145) 09/04/17 20:15 Potassium 3.2 mmol/L (3.5-5.1) L 09/04/17 20:15 Chloride 106 mmol/L (98-107) 09/04/17 20:15 Carbon Dioxide 26 mmol/L (21-32) 09/04/17 20:15 Anion Gap 8 (8-16) 09/04/17 20:15 BUN 5 mg/dL (7-18) L 09/04/17 20:15 Creatinine 0.4 mg/dL (0.7-1.3) L 09/04/17 20:15 Creat Clearance w eGFR > 60 (>60) 09/04/17 20:15 Random Glucose 83 mg/dL (74-106) 09/04/17 20:15 Calcium 8.6 mg/dL (8.5-10.1) 09/04/17 20:15 Total Bilirubin 0.5 mg/dL (0.2-1.0) D 09/04/17 20:15 AST 14 U/L (15-37) L D 09/04/17 20:15 ALT 35 U/L (12-78) D 09/04/17 20:15 Alkaline Phosphatase 135 U/L (45-117) H 09/04/17 20:15 Total Protein 7.3 g/dl (6.4-8.2) 09/04/17 20:15 Albumin 3.5 g/dl (3.4-5.0) 09/04/17 20:15 CARDIAC ENZYMES Creatine Kinase 155 IU/L (39-308) 09/04/17 20:15 Troponin I < 0.02 ng/ml (0.00-0.05) 09/04/17 20:15 Active Medications Generic Name Dose Route Start Last Admin Trade Name Freq PRN Reason Stop Dose Admin Acetaminophen 750 mg 09/05/17 20:00 Ofirmev Injection - IVPB 09/06/17 08:01 Q6H AUNG Albuterol/Ipratropium 1 amp 09/05/17 18:00 Duoneb - NEB QIDR AUNG Potassium Chloride/Dextrose/Sod Cl 20 meq in 1,000 mls @ 75 mls/hr 09/05/17 14 :15 09/05/17 15:30 D5-1/2ns+20 Meq Kcl - IV 0 mls ASDIR AUNG Administration Morphine Sulfate 2 mg 09/05/17 14:03 Morphine Injection - IVPB Q6H PRN PAIN LEVEL 6-10 Home Medications Medication Instructions Recorded Albuterol 0.083% Nebulizer Martha 1 neb NEB QID PRN 12/03/16 [Ventolin 0.083% Nebulizer Soln -] Clobetasol Propionate/Emoll 15 gm TP DAILY 12/03/16 [Clobetasol Emollient 0.05% Crm] Diazepam 2 mg PO TID 12/03/16 Gabapentin 400 mg PO BID 12/03/16 Glycopyrrolate in Water/Pf 1 mg IV BID 12/03/16 [Glycopyrrolate 1 mg/5 ml-Water] Lacosamide [Vimpat -] 50 mg PO BID 12/03/16 Montelukast Na [Singulair -] 5 mg PO HS 12/03/16 Phenobarbital 20 mg GT DAILY 12/03/16 Scopolamine [Transderm-Scop] 1 each TD Q2D 12/03/16 Albuterol 2.5/Ipratropium 0.5 1 neb IH QID 09/04/17 [Duoneb -] Lactulose [Cephulac -] 30 ml GT DAILY 09/04/17 Levetiracetam [Keppra Oral 1,500 mg GT DAILY 09/04/17 Solution -] Levetiracetam [Keppra Oral 1,700 mg GT HS 09/04/17 Solution -] ASSESSMENT/PLAN:
--- NOTE | 2017-09-05 18:19 | HOSP ---
Subjective - Review of Symptoms Events since last encounter: Patient is lying in comfortably with no acute distress. Vital Signs Temperature 98.6 F 09/05/17 15:30 Pulse Rate 95 H 09/05/17 15:30 Respiratory Rate 18 09/05/17 15:30 Blood Pressure 113/77 09/05/17 15:30 O2 Sat by Pulse Oximetry (%) 99 09/05/17 15:30 CBCD WBC 10.8 K/mm3 (4.0-10.0) H D 09/04/17 20:15 RBC 4.04 M/mm3 (4.00-5.60) 09/04/17 20:15 Hgb 13.4 GM/dL (11.7-16.9) 09/04/17 20:15 Hct 39.4 % (35.4-49) 09/04/17 20:15 MCV 97.4 fl (80-96) H 09/04/17 20:15 MCHC 34.0 g/dl (32.0-35.9) 09/04/17 20:15 RDW 14.3 % (11.9-15.9) 09/04/17 20:15 Plt Count 398 K/MM3 (134-434) D 09/04/17 20:15 MPV 6.9 fl (7.5-11.1) L D 09/04/17 20:15 CMP Sodium 140 mmol/L (136-145) 09/04/17 20:15 Potassium 3.2 mmol/L (3.5-5.1) L 09/04/17 20:15 Chloride 106 mmol/L (98-107) 09/04/17 20:15 Carbon Dioxide 26 mmol/L (21-32) 09/04/17 20:15 Anion Gap 8 (8-16) 09/04/17 20:15 BUN 5 mg/dL (7-18) L 09/04/17 20:15 Creatinine 0.4 mg/dL (0.7-1.3) L 09/04/17 20:15 Creat Clearance w eGFR > 60 (>60) 09/04/17 20:15 Random Glucose 83 mg/dL (74-106) 09/04/17 20:15 Calcium 8.6 mg/dL (8.5-10.1) 09/04/17 20:15 Total Bilirubin 0.5 mg/dL (0.2-1.0) D 09/04/17 20:15 AST 14 U/L (15-37) L D 09/04/17 20:15 ALT 35 U/L (12-78) D 09/04/17 20:15 Alkaline Phosphatase 135 U/L (45-117) H 09/04/17 20:15 Total Protein 7.3 g/dl (6.4-8.2) 09/04/17 20:15 Albumin 3.5 g/dl (3.4-5.0) 09/04/17 20:15 CARDIAC ENZYMES Creatine Kinase 155 IU/L (39-308) 09/04/17 20:15 Troponin I < 0.02 ng/ml (0.00-0.05) 09/04/17 20:15 Current Medications Generic Name Dose Route Start Last Admin Trade Name Freq PRN Reason Stop Dose Admin Acetaminophen 750 mg 09/05/17 20:00 Ofirmev Injection - IVPB 09/06/17 08:01 Q6H AUNG Albuterol/Ipratropium 1 amp 09/05/17 18:00 Duoneb - NEB QIDR AUNG Potassium Chloride/Dextrose/Sod Cl 20 meq in 1,000 mls @ 75 mls/hr 09/05/17 14 :15 09/05/17 15:30 D5-1/2ns+20 Meq Kcl - IV 0 mls ASDIR AUNG Administration Morphine Sulfate 2 mg 09/05/17 14:03 Morphine Injection - IVPB Q6H PRN PAIN LEVEL 6-10 Home Medications Medication Instructions Recorded Albuterol 0.083% Nebulizer Martha 1 neb NEB QID PRN 12/03/16 [Ventolin 0.083% Nebulizer Soln -] Clobetasol Propionate/Emoll 15 gm TP DAILY 12/03/16 [Clobetasol Emollient 0.05% Crm] Diazepam 2 mg PO TID 12/03/16 Gabapentin 400 mg PO BID 12/03/16 Glycopyrrolate in Water/Pf 1 mg IV BID 12/03/16 [Glycopyrrolate 1 mg/5 ml-Water] Lacosamide [Vimpat -] 50 mg PO BID 12/03/16 Montelukast Na [Singulair -] 5 mg PO HS 12/03/16 Phenobarbital 20 mg GT DAILY 12/03/16 Scopolamine [Transderm-Scop] 1 each TD Q2D 12/03/16 Albuterol 2.5/Ipratropium 0.5 1 neb IH QID 09/04/17 [Duoneb -] Lactulose [Cephulac -] 30 ml GT DAILY 09/04/17 Levetiracetam [Keppra Oral 1,500 mg GT DAILY 09/04/17 Solution -] Levetiracetam [Keppra Oral 1,700 mg GT HS 09/04/17 Solution -] GENERAL: sleeping comfortably , not alert, or oriented, in no acute distress. HEAD: Normal with no signs of trauma. EYES: sclera anicteric, conjunctiva clear. NECK: Limited ROM, supple without lymphadenopathy, no JVD, or masses. ABDOMEN: positive for dressing . POD #0 today. MUSCULOSKELETAL: Abnormal ROM at all joints. Contracted EXTREMITIES: 2+ pulses, warm, well-perfused. No cyanosis. No peripheral edema. NEUROLOGICAL: No speech, gait not observed. PSYCH: . Poor eye contact. Inappropriate mood and affect. SKIN: Warm, dry, normal turgor, no rashes or lesions noted. CT a/p reviewed and images; reported positive for perforated viscous. A/p: # POD#0 exploratory laparotomy for pneumoperitoneum. As per surgeon: no perforation of hollow viscus found; and G tube was intact # Hx of Seizure continue with IV formulation since patient had surgery, will hold all the po meds.for now, until is ok with the surgeon. Keppra and Vimpat converted to IV formulation Hx of MR continue meds as IV , hold all the Gtube meds for now. DVT px sCds now, heparin sq in am Physical Examination Vital Signs: Vital Signs Temperature 98.6 F 09/05/17 15:30 Pulse Rate 95 H 09/05/17 15:30 Respiratory Rate 18 09/05/17 15:30 Blood Pressure 113/77 09/05/17 15:30 O2 Sat by Pulse Oximetry (%) 99 09/05/17 15:30 Labs: CBC, BMP 09/04/17 20:15 09/04/17 20:15
[2017-09-05] MEDS ORDERED: ALBUTEROL SO4 0.083% IH SOL 2.5 MG/3 ML VIAL.NEB. NEB PRN (18:29)
[2017-09-05] MEDS: ALBUTEROL SO4 2.5/IPRATROPIUM 0.5 INH SOL 3 ML VIAL.NEB. NEB SCH ×2 (18:30→23:43)
[2017-09-05] MEDS: levETIRAcetam 500 MG/5 ML INJECTION VIAL IVPB SCH (21:43)
[2017-09-05] MEDS: Lacosamide 200 MG/20 ML VIAL IVPB SCH (21:43)
[2017-09-05] MEDS ORDERED: LEVOFLOXACIN 750 MG IVPB 750 MG/150 ML BAG IVPB SCH (22:00)
[2017-09-05] MEDS: ACETAMINOPHEN 1000 MG/100 ML VIAL (NON FORMULARY) IVPB SCH (23:15)
[2017-09-06] MEDS: ACETAMINOPHEN 1000 MG/100 ML VIAL (NON FORMULARY) IVPB SCH ×2 (04:06→10:03)
[2017-09-06] MEDS: ALBUTEROL SO4 2.5/IPRATROPIUM 0.5 INH SOL 3 ML VIAL.NEB. NEB SCH ×4 (06:27→23:31)
[2017-09-06 08:08] LABS: BASO % 0.5 % (0-2.0); EOS % 0.7 % (0-4.5); HEMATOCRIT 33.3 % (35.4-49); HEMOGLOBIN 11.1 GM/dL (11.7-16.9); MCH 32.9 pg (25.7-33.7); MCHC 33.4 g/dl (32.0-35.9); MEAN CELL VOLUME 98.5 fl (80-96); MEAN PLT VOLUME 7.3 fl (7.5-11.1); MONO % 5.4 % (3.8-10.2); NEUT % 72.4 % (42.8-82.8); PLATELET COUNT 322 K/MM3 (134-434); RBC 3.38 M/mm3 (4.00-5.60); WHITE BLOOD COUNT 10.7 K/mm3 (4.0-10.0)
[2017-09-06 08:36] LABS: ANION GAP 6 (8-16); CALCIUM 8.1 mg/dL (8.5-10.1); CHLORIDE 109 mmol/L (98-107); CO2 26 mmol/L (21-32); CREATININE 0.4 mg/dL (0.7-1.3); GLUCOSE,RANDOM 111 mg/dL (74-106); PHOSPHOROUS 2.5 mg/dL (2.5-4.9); POTASSIUM 3.4 mmol/L (3.5-5.1); SODIUM 141 mmol/L (136-145)
[2017-09-06] MEDS ORDERED: PT OWN MED DRAWER 7, Y5N ONE (08:40)
[2017-09-06] MEDS: D5-1/2NS+20 MEQ KCL - 20 MEQ/1,000 ML INFUS.BAG IV SCH ×2 (08:41→21:23)
[2017-09-06 09:12] LABS: BLOOD UREA NITROGEN 2 mg/dL (7-18)
--- NOTE | 2017-09-06 09:49 | PN ---
Progress Note (short form) - Note Progress Note: ID Taken to OR with no obvious source for the free air seen on imaging Currently off antibiotics Selected Entries 09/05/17 09/06/17 16:00 08:46 Temperature 98.2 F 99.6 F Pulse Rate 98 H 111 H Respiratory 22 Rate Blood Pressure 137/70 Assessment Post op day 1 Plan Kindly recall if can be of assistance Meggan SHIRLEY Problem List - Problems (1) Fever Code(s): R50.9 - FEVER, UNSPECIFIED (2) Perforated abdominal viscus Code(s): HEK6733 -
[2017-09-06] MEDS: Lacosamide 200 MG/20 ML VIAL IVPB SCH ×2 (10:18→21:22)
[2017-09-06] MEDS: levETIRAcetam 500 MG/5 ML INJECTION VIAL IVPB SCH ×2 (10:37→21:52)
[2017-09-06] MEDS ORDERED: KCL 10 MEQ IVPB 10 MEQ/100 ML INFUS.BAG IVPB SCH (12:15)
--- NOTE | 2017-09-06 12:27 | PN ---
Physical Exam: SUBJECTIVE: Patient seen and examined Patient is lying in bed, Non verbal. looks comfortable. OBJECTIVE: Vital Signs Temperature 99.6 F 09/06/17 08:46 Pulse Rate 111 H 09/06/17 08:46 Respiratory Rate 22 09/06/17 08:46 Blood Pressure 137/70 09/06/17 08:46 O2 Sat by Pulse Oximetry (%) 96 09/06/17 09:00 CBCD WBC 10.7 K/mm3 (4.0-10.0) H 09/06/17 07:50 RBC 3.38 M/mm3 (4.00-5.60) L 09/06/17 07:50 Hgb 11.1 GM/dL (11.7-16.9) L D 09/06/17 07:50 Hct 33.3 % (35.4-49) L D 09/06/17 07:50 MCV 98.5 fl (80-96) H 09/06/17 07:50 MCHC 33.4 g/dl (32.0-35.9) 09/06/17 07:50 RDW 14.0 % (11.9-15.9) 09/06/17 07:50 Plt Count 322 K/MM3 (134-434) 09/06/17 07:50 MPV 7.3 fl (7.5-11.1) L 09/06/17 07:50 CMP Sodium 141 mmol/L (136-145) 09/06/17 07:50 Potassium 3.4 mmol/L (3.5-5.1) L 09/06/17 07:50 Chloride 109 mmol/L (98-107) H 09/06/17 07:50 Carbon Dioxide 26 mmol/L (21-32) 09/06/17 07:50 Anion Gap 6 (8-16) L 09/06/17 07:50 BUN 2 mg/dL (7-18) L* D 09/06/17 07:50 Creatinine 0.4 mg/dL (0.7-1.3) L 09/06/17 07:50 Creat Clearance w eGFR > 60 (>60) 09/04/17 20:15 Random Glucose 111 mg/dL (74-106) H D 09/06/17 07:50 Calcium 8.1 mg/dL (8.5-10.1) L 09/06/17 07:50 Total Bilirubin 0.5 mg/dL (0.2-1.0) D 09/04/17 20:15 AST 14 U/L (15-37) L D 09/04/17 20:15 ALT 35 U/L (12-78) D 09/04/17 20:15 Alkaline Phosphatase 135 U/L (45-117) H 09/04/17 20:15 Total Protein 7.3 g/dl (6.4-8.2) 09/04/17 20:15 Albumin 3.5 g/dl (3.4-5.0) 09/04/17 20:15 CARDIAC ENZYMES Creatine Kinase 155 IU/L (39-308) 09/04/17 20:15 Troponin I < 0.02 ng/ml (0.00-0.05) 09/04/17 20:15 Active Medications Generic Name Dose Route Start Last Admin Trade Name Freq PRN Reason Stop Dose Admin Albuterol Sulfate 1 amp 09/05/17 18:29 Ventolin 0.083% Nebulizer Soln - NEB QIDR PRN ASTHMA Albuterol/Ipratropium 1 amp 09/05/17 18:00 09/06/17 12:00 Duoneb - NEB 1 amp QIDR AUNG Administration Potassium Chloride/Dextrose/Sod Cl 20 meq in 1,000 mls @ 75 mls/hr 09/05/17 14 :15 09/06/17 08:41 D5-1/2ns+20 Meq Kcl - IV 75 mls/hr ASDIR AUNG Administration Potassium Chloride 10 meq in 100 mls @ 100 mls/hr 09/06/17 12:15 Potassium Chloride 10 Meq Premix Ivpb - IVPB 09/06/17 15:14 Q60M AUNG Ibuprofen 400 mg 09/06/17 12:30 Caldolor Injection - IVPB 09/07/17 12:00 Q6H AUNG Lacosamide 50 mg 09/05/17 22:00 09/06/17 10:18 Vimpat Injection - IVPB 50 mg BID AUNG Administration Levetiracetam 1,500 mg 09/06/17 10:00 09/06/17 10:37 Keppra Injection - IVPB 1,500 mg DAILY AUNG Administration Levetiracetam 1,700 mg 09/05/17 22:00 09/05/17 21:43 Keppra Injection - IVPB 1,700 mg HS AUNG Administration Morphine Sulfate 2 mg 09/05/17 14:03 Morphine Injection - IVPB Q6H PRN PAIN LEVEL 6-10 Scopolamine HBr 1 patch 09/07/17 10:00 Transderm-Scop - TD Q2D AUNG PE: per resident's note CT a/p reviewed and images; reported positive for perforated viscous. A/p: # POD#1 exploratory laparotomy for pneumoperitoneum. As per surgeon: no perforation of hollow viscus found; and G tube was intact, slightly tachycaric will give him some pain medication. # Hx of Seizure continue with IV formulation since patient had surgery, will hold all the po meds.for now, until is ok with the surgeon. Keppra and Vimpat converted to IV formulation Hx of MR continue meds as IV , hold all the Gtube meds for now. DVT px sCds now, heparin sq in am Since patient is NPO meds were converted to IV Visit type - Emergency Visit Emergency Visit: Yes ED Registration Date: 09/05/17 Care time: The patient presented to the Emergency Department on the above date and was hospitalized for further evaluation of their emergent condition. - New Patient This patient is new to me today: No - Critical Care Critical Care patient: No
--- NOTE | 2017-09-06 12:34 | PN ---
Progress Note (short form) - Note Progress Note: Attending Surgeon POD#1 No c/o VSS AF abdomen-dressing c/d/i; GT to BSB; post op changes are present; left groin w/ good pulse; no hematoma; o/w negative labs reviewed UO adequate IMP: doing well PLAN: NPO/IVF; findings d/w mother and aunt post op yesterday. Ankit Cooley MD FACS
--- NOTE | 2017-09-06 12:40 | PN ---
Physical Exam: SUBJECTIVE: Patient seen and examined Pt appears comfortable, non-verbal, non-communicative. OBJECTIVE: Vital Signs Period Temp Pulse Resp BP Sys/Jay Pulse Ox Last 24 Hr 97.5 F-99.6 F 83-116 18-22 112-137/68-97 96-100 GENERAL: young male, lying in bed curled up, gurgling sounds, in NAD HEENT: EOMI, gurgling NECK: Trachea midline, full range of motion, supple. LUNGS: gurgling, upper airway sounds, could not appreciate rales or rhonchi HEART: Regular rate and rhythm, S1, S2 without murmur, rub or gallop. ABDOMEN: mildly distended, normoactive BS, bandages over incision sites, soft, non-tender to palpation EXTREMITIES: 2+ pulses, warm, well-perfused, no edema. NEUROLOGICAL: can't fully assess due to CP Laboratory Results - last 24 hr 09/05/17 09/06/17 09/06/17 12:00 07:50 07:50 WBC 10.7 H RBC 3.38 L Hgb 11.1 L D Hct 33.3 L D MCV 98.5 H MCH 32.9 MCHC 33.4 RDW 14.0 Plt Count 322 MPV 7.3 L Neutrophils % 72.4 Lymphocytes % 21.0 Monocytes % 5.4 Eosinophils % 0.7 Basophils % 0.5 Sodium 141 Potassium 3.4 L Chloride 109 H Carbon Dioxide 26 Anion Gap 6 L BUN 2 L* D Creatinine 0.4 L Random Glucose 111 H D Calcium 8.1 L Phosphorus 2.5 Magnesium 2.0 C-Reactive Protein 14.1 H Active Medications Generic Name Dose Route Start Last Admin Trade Name Freq PRN Reason Stop Dose Admin Albuterol Sulfate 1 amp 09/05/17 18:29 Ventolin 0.083% Nebulizer Soln - NEB QIDR PRN ASTHMA Albuterol/Ipratropium 1 amp 09/05/17 18:00 09/06/17 12:00 Duoneb - NEB 1 amp QIDR AUNG Administration Potassium Chloride/Dextrose/Sod Cl 20 meq in 1,000 mls @ 75 mls/hr 09/05/17 14 :15 09/06/17 08:41 D5-1/2ns+20 Meq Kcl - IV 75 mls/hr ASDIR AUNG Administration Potassium Chloride 10 meq in 100 mls @ 100 mls/hr 09/06/17 12:15 Potassium Chloride 10 Meq Premix Ivpb - IVPB 09/06/17 15:14 Q60M AUNG Ibuprofen 400 mg 09/06/17 12:30 Caldolor Injection - IVPB 09/07/17 12:00 Q6H AUNG Lacosamide 50 mg 09/05/17 22:00 09/06/17 10:18 Vimpat Injection - IVPB 50 mg BID AUNG Administration Levetiracetam 1,500 mg 09/06/17 10:00 09/06/17 10:37 Keppra Injection - IVPB 1,500 mg DAILY AUNG Administration Levetiracetam 1,700 mg 09/05/17 22:00 09/05/17 21:43 Keppra Injection - IVPB 1,700 mg HS AUNG Administration Morphine Sulfate 2 mg 09/05/17 14:03 Morphine Injection - IVPB Q6H PRN PAIN LEVEL 6-10 Scopolamine HBr 1 patch 09/07/17 10:00 Transderm-Scop - TD Q2D AUNG ASSESSMENT/PLAN: 22M with a significant PMH of cortical blindness, cerebral palsy, spastic quadriplegia, seizure disorder, reactive airway disease, YAKELIN, GERD, HTN, strabismus, scoliosis, nonverbal presents to ED brought by ambulance from [facility] for temp recorded rectally as 97.3 and hypotension, admitted for suspected perforated viscous. # suspected perforated viscus: -no perforated viscous found on surgery. megacolon found, unclear etiology -continue bowel rest and D5-1/2NS -pt still NPO for now pending surgery recs -pain control with IV motrin and PRN morphine -ID on board, no abx for now -Bcx: nothing x 24 hours -Ucx: nothing- final #tachycardia -likely 2/2 pain -pain control -continue to monitor #Seizure disorder -continue home keppra #Reactive airway disease -duonebs standing and PRN -scopolamine held to prevent worsening ileus #F/E/N/ppx -D5-1/2NS -K repleted -NPO for now -no GI ppx -heparin Case discussed with attending, Dr. Mccall. -Mirza Ritchie MD PGY1 Visit type - Emergency Visit Emergency Visit: Yes ED Registration Date: 09/05/17 Care time: The patient presented to the Emergency Department on the above date and was hospitalized for further evaluation of their emergent condition. - New Patient This patient is new to me today: Yes Date on this admission: 09/06/17 - Critical Care Critical Care patient: No
[2017-09-06] MEDS ORDERED: POTASSIUM ACETATE IV ONE (12:45)
[2017-09-06] MEDS ORDERED: POTASSIUM CHLORIDE 30 MEQ in SODIUM CHLORIDE 300 ML IVPB ONE (12:45)
[2017-09-06] MEDS ORDERED: SODIUM CHLORIDE IV ONE (12:45)
[2017-09-06] MEDS: IBUPROFEN 800 MG/8 ML IJ IVPB SCH ×3 (13:16→23:31)
--- NOTE | 2017-09-06 13:40 | PN ---
Progress Note (short form) - Note Progress Note: Anesthesiology Post-op POD#1 s/p Exploratory Laparotomy under GA. Pt. is doing well. Per RN, pain appears to be under control. He is awake and at baseline mental status. No apparent anesthesia-related issues. VSS.
[2017-09-06] MEDS: HEPARIN NA (PORCINE) 5,000 UNITS/ML 1ML VIAL SQ SCH ×2 (14:52→21:22)
[2017-09-06] MEDS ORDERED: VANCOMYCIN 1 GRAM (PRE-DOCKED) 1,000 MG/250 ML BAG IVPB ONE (16:03)
[2017-09-06] MEDS ORDERED: ACETAMINOPHEN 1000 MG/100 ML VIAL (NON FORMULARY) IVPB ONE (16:04)
[2017-09-06] MEDS ORDERED: PIPERACILLIN/TAZOB 3.375 GM/50 ML PRE-DOCKED IVPB SCH (16:15)
[2017-09-06] MEDS ORDERED: VANCOMYCIN 1,000 MG in DEXTROSE 5%-WATER - 250 ML IVPB ONE (16:15)
[2017-09-06] MEDS ORDERED: LEVOFLOXACIN 750 MG IVPB 750 MG/150 ML BAG IVPB ONE (18:00)
[2017-09-06] MEDS: METRONIDAZOLE 500 MG PREMIXED 500 MG/100 ML MG IVPB SCH (18:00)
[2017-09-06] MEDS ORDERED: levETIRAcetam 500 MG/5 ML INJECTION VIAL IVPB ONE (21:48)
[2017-09-06] MEDS ORDERED: SCOPOLAMINE HYDROBROMIDE 1 PATCH PATCH.TD72 TD SCH (21:49)
[2017-09-06] MEDS: SCOPOLAMINE HYDROBROMIDE 1 PATCH PATCH.TD72 TD SCH (23:24)
[2017-09-07] MEDS: METRONIDAZOLE 500 MG PREMIXED 500 MG/100 ML MG IVPB SCH ×2 (01:02→10:54)
[2017-09-07] MEDS: HEPARIN NA (PORCINE) 5,000 UNITS/ML 1ML VIAL SQ SCH ×3 (06:18→22:18)
[2017-09-07] MEDS: IBUPROFEN 800 MG/8 ML IJ IVPB SCH (06:18)
[2017-09-07] MEDS: ALBUTEROL SO4 2.5/IPRATROPIUM 0.5 INH SOL 3 ML VIAL.NEB. NEB SCH ×3 (06:37→16:35)
[2017-09-07 07:13] LABS: BASO % 1.1 % (0-2.0); EOS % 0.7 % (0-4.5); HEMATOCRIT 31.9 % (35.4-49); HEMOGLOBIN 10.7 GM/dL (11.7-16.9); MCH 32.8 pg (25.7-33.7); MCHC 33.5 g/dl (32.0-35.9); MEAN CELL VOLUME 97.8 fl (80-96); MEAN PLT VOLUME 7.5 fl (7.5-11.1); NEUT % 55.2 % (42.8-82.8); PLATELET COUNT 316 K/MM3 (134-434); RBC 3.26 M/mm3 (4.00-5.60); RDW 14.3 % (11.9-15.9); WHITE BLOOD COUNT 10.5 K/mm3 (4.0-10.0)
[2017-09-07 07:39] LABS: ALBUMIN 3.2 g/dl (3.4-5.0); ANION GAP 6 (8-16); CALCIUM 8.5 mg/dL (8.5-10.1); CHLORIDE 113 mmol/L (98-107); CO2 26 mmol/L (21-32); GLUCOSE,RANDOM 88 mg/dL (74-106); POTASSIUM 3.4 mmol/L (3.5-5.1); SGOT/AST 29 U/L (15-37); SGPT/ALT 34 U/L (12-78); SODIUM 145 mmol/L (136-145)
[2017-09-07 07:42] LABS: ALK PHOS 116 U/L (45-117); BILIRUBIN,TOTAL 0.7 mg/dL (0.2-1.0); BLOOD UREA NITROGEN 3 mg/dL (7-18); CREATININE 0.4 mg/dL (0.7-1.3); TOT PROT 6.5 g/dl (6.4-8.2)
[2017-09-07] MEDS ORDERED: KCL 10 MEQ IVPB 10 MEQ/100 ML INFUS.BAG IVPB SCH (09:30)
[2017-09-07] MEDS ORDERED: POTASSIUM CHLORIDE 30 MEQ in SODIUM CHLORIDE 300 ML IVPB ONE (09:45)
[2017-09-07] MEDS ORDERED: SCOPOLAMINE HYDROBROMIDE 1 PATCH PATCH.TD72 TD SCH (10:00)
[2017-09-07] MEDS: Lacosamide 200 MG/20 ML VIAL IVPB SCH ×2 (10:28→22:18)
--- NOTE | 2017-09-07 10:55 | PN ---
Progress Note, Physician Chief Complaint: ID Advised about post op fever last night Now afebrile - Current Medication List Current Medications: Active Medications Albuterol Sulfate (Ventolin 0.083% Nebulizer Soln -) 1 amp NEB QIDR PRN PRN Reason: ASTHMA Albuterol/Ipratropium (Duoneb -) [address] [facility] Last Admin: 09/07/17 06:37 Dose: 1 amp Heparin Sodium (Porcine) (Heparin -) 5,[address] [facility] Last Admin: 09/07/17 06:18 Dose: 5,000 unit Potassium Chloride/Dextrose/Sod Cl (D5-1/2ns+20 Meq Kcl -) 20 meq in 1,000 mls @ 75 mls/hr IV ASDIR [facility] Last Admin: 09/06/17 21:23 Dose: Not Given Potassium Chloride 30 meq/ (Sodium Chloride) 315 mls @ 88.333 mls/hr IVPB ONCE ONE Stop: 09/07/17 13:18 Ibuprofen (Caldolor Injection -) [address] [facility] Stop: 09/07/17 12:00 Last Admin: 09/07/17 06:18 Dose: 400 mg Lacosamide (Vimpat Injection -) [address] [facility] Last Admin: 09/07/17 10:28 Dose: 50 mg Levetiracetam (Keppra Injection -) 1,[address] [facility] Last Admin: 09/06/17 10:37 Dose: 1,500 mg Levetiracetam (Keppra Injection -) 1,[address] [facility] Last Admin: 09/06/17 21:52 Dose: 1,700 mg Morphine Sulfate (Morphine Injection -) 2 mg IVPB Q6H PRN PRN Reason: PAIN LEVEL 6-10 Scopolamine HBr (Transderm-Scop -) [address] [facility] Last Admin: 09/06/17 23:24 Dose: 1 patch - Objective Vital Signs: Vital Signs Temperature 98.5 F 09/07/17 06:00 Pulse Rate 98 H 09/07/17 06:00 Respiratory Rate 20 09/07/17 06:00 Blood Pressure 112/70 09/07/17 06:00 O2 Sat by Pulse Oximetry (%) 96 09/06/17 21:00 Constitutional: Yes: Well Nourished, No Distress Eyes: Yes: WNL, Conjunctiva Clear HENT: Yes: WNL, Atraumatic Neck: Yes: WNL, Supple Cardiovascular: Yes: Regular Rate and Rhythm, S1, S2. No: Murmur Respiratory: Yes: WNL, Regular, CTA Bilaterally Gastrointestinal: Yes: Soft, Other (post op dressing) Labs: CBC, BMP 09/07/17 06:00 09/07/17 06:00 INR, PTT INR 1.73 (0.82-1.09) H 09/04/17 20:15 Problem List - Problems (1) Fever Code(s): R50.9 - FEVER, UNSPECIFIED (2) Perforated abdominal viscus Code(s): [id number] - Assessment/Plan Microbiology 09/04/17 22:40 Nasopharyngeal Swab Influenza Types A,B Antigen (CHLOÉ) - Final 09/04/17 22:40 Nasopharyngeal Swab - Final 09/04/17 20:40 Urine - Urine Clean Catch Urine Culture - Final NO GROWTH OBTAINED 09/04/17 20:15 Blood - Peripheral Venous Blood Culture - Preliminary NO GROWTH OBTAINED AFTER 48 HOURS, INCUBATION TO CONTINUE FOR 3 DAYS. 09/04/17 20:15 Blood - Peripheral Venous Blood Culture - Preliminary NO GROWTH OBTAINED AFTER 48 HOURS, INCUBATION TO CONTINUE FOR 3 DAYS. 09/04/17 20:15 Blood - Peripheral Venous Blood Culture - Preliminary NO GROWTH OBTAINED AFTER 24 HOURS, INCUBATION TO CONTINUE FOR 4 DAYS. 09/04/17 20:15 Blood - Peripheral Venous Blood Culture - Preliminary NO GROWTH OBTAINED AFTER 24 HOURS, INCUBATION TO CONTINUE FOR 4 DAYS. Laboratory Tests 09/06/17 09/06/17 09/07/17 07:50 07:50 06:00 WBC 10.7 H 10.5 H Hgb 11.1 L D Plt Count 322 316 BUN 2 L* D Creatinine 0.4 L Creat Clearance w eGFR Total Bilirubin AST ALT Alkaline Phosphatase 09/07/17 06:00 WBC Hgb Plt Count BUN 3 L D Creatinine 0.4 L Creat Clearance w eGFR > 60 Total Bilirubin 0.7 D AST 29 D ALT 34 Alkaline Phosphatase 116 Assessment Post op fever NO evidence for source of the free air seen on CT Plan Stop antibiotics and moniter fever By history he did have fever [employer] though not here (untill yesterday)
[2017-09-07] MEDS: levETIRAcetam 500 MG/5 ML INJECTION VIAL IVPB SCH ×2 (11:35→22:35)
--- NOTE | 2017-09-07 14:04 | PN ---
Progress Note (short form) - Note Progress Note: Attending Surgeon POD#2 Unable to complain; does not appear to be in undue stress VSS AF abdo-incision c/d/i/;g-tube in place;dstended but this may be baeline Labs noted IMP:stable PLAN: Continue present tx.; possible start g-tube feeds tomorrow. Ankit Cooley MD FACS
--- NOTE | 2017-09-07 16:33 | PN ---
<Mirza Ritchie - Last Filed: 09/07/17 16:33> Physical Exam: SUBJECTIVE: Patient seen and examined Pt appears comfortable, non-verbal, non-communicative. OBJECTIVE: Vital Signs Period Temp Pulse Resp BP Sys/Jay Pulse Ox Last 24 Hr 98.1 F-99.1 F 86-125 20-20 112-145/60-91 94-96 GENERAL: young male, lying in bed curled up, gurgling sounds, in NAD HEENT: EOMI, gurgling NECK: Trachea midline, full range of motion, supple. LUNGS: gurgling, upper airway sounds, could not appreciate rales or rhonchi HEART: Regular rate and rhythm, S1, S2 without murmur, rub or gallop. ABDOMEN: mildly distended, normoactive BS, bandages over incision sites, soft, non-tender to palpation EXTREMITIES: 2+ pulses, warm, well-perfused, no edema. NEUROLOGICAL: can't fully assess due to CP Laboratory Results - last 24 hr 09/07/17 09/07/17 06:00 06:00 WBC 10.5 H RBC 3.26 L Hgb 10.7 L Hct 31.9 L MCV 97.8 H MCH 32.8 MCHC 33.5 RDW 14.3 Plt Count 316 MPV 7.5 Neutrophils % 55.2 D Lymphocytes % 37.0 D Monocytes % 6.0 Eosinophils % 0.7 Basophils % 1.1 Sodium 145 Potassium 3.4 L Chloride 113 H Carbon Dioxide 26 Anion Gap 6 L BUN 3 L D Creatinine 0.4 L Creat Clearance w eGFR > 60 Random Glucose 88 D Calcium 8.5 Total Bilirubin 0.7 D AST 29 D ALT 34 Alkaline Phosphatase 116 Total Protein 6.5 Albumin 3.2 L Active Medications Generic Name Dose Route Start Last Admin Trade Name Freq PRN Reason Stop Dose Admin Albuterol Sulfate 1 amp 09/05/17 18:29 Ventolin 0.083% Nebulizer Soln - NEB QIDR PRN ASTHMA Albuterol/Ipratropium 1 amp 09/05/17 18:00 09/07/17 11:05 Duoneb - NEB 1 amp QIDR AUNG Administration Heparin Sodium (Porcine) 5,000 unit 09/06/17 14:00 09/07/17 14:02 Heparin - SQ 5,000 unit TID AUNG Administration Potassium Chloride/Dextrose/Sod Cl 20 meq in 1,000 mls @ 75 mls/hr 09/05/17 14 :15 09/06/17 21:23 D5-1/2ns+20 Meq Kcl - IV Not Given ASDIR AUNG Lacosamide 50 mg 09/05/17 22:00 09/07/17 10:28 Vimpat Injection - IVPB 50 mg BID AUNG Administration Levetiracetam 1,500 mg 09/06/17 10:00 09/07/17 11:35 Keppra Injection - IVPB 1,500 mg DAILY AUNG Administration Levetiracetam 1,700 mg 09/05/17 22:00 09/06/17 21:52 Keppra Injection - IVPB 1,700 mg HS AUNG Administration Morphine Sulfate 2 mg 09/05/17 14:03 Morphine Injection - IVPB Q6H PRN PAIN LEVEL 6-10 Scopolamine HBr 1 patch 09/06/17 23:30 09/06/17 23:24 Transderm-Scop - TD 1 patch Q48H AUNG Administration ASSESSMENT/PLAN: 22M with a significant PMH of cortical blindness, cerebral palsy, spastic quadriplegia, seizure disorder, reactive airway disease, YAKELIN, GERD, HTN, strabismus, scoliosis, nonverbal presents to ED brought by ambulance from [facility] for temp recorded rectally as 97.3 and hypotension, admitted for suspected perforated viscous. # suspected perforated viscus: -no perforated viscous found on surgery. megacolon found, unclear etiology -continue bowel rest and D5-1/2NS -pt still NPO for now pending surgery recs. possibly will start g-tube feeds arden -pain control with IV motrin and PRN morphine -one fever recording yesterday. ID on board, no abx for now -Bcx: nothing x 48 hours -Ucx: nothing- final #tachycardia -likely 2/2 pain -pain control -continue to monitor #Seizure disorder -continue home keppra #Reactive airway disease -duonebs standing and PRN -scopolamine restarted #F/E/N/ppx -D5-1/2NS -K repleted -NPO for now -no GI ppx -heparin Case discussed with attending, Dr. Mccall. -Mirza Ritchie MD PGY1 Visit type - Emergency Visit Emergency Visit: Yes ED Registration Date: 09/05/17 Care time: The patient presented to the Emergency Department on the above date and was hospitalized for further evaluation of their emergent condition. - New Patient This patient is new to me today: No - Critical Care Critical Care patient: No <StefanyAdelia - Last Filed: 09/07/17 19:48> Physical Exam: SUBJECTIVE: Patient seen and examined with the resident. agree with his plan and assessment.
[2017-09-07] MEDS ORDERED: PT OWN MED DRAWER 7, Y5N ONE (22:10)
[2017-09-07] MEDS: D5-1/2NS+20 MEQ KCL - 20 MEQ/1,000 ML INFUS.BAG IV SCH (22:27)
[2017-09-08] MEDS: ALBUTEROL SO4 2.5/IPRATROPIUM 0.5 INH SOL 3 ML VIAL.NEB. NEB SCH ×5 (00:07→20:20)
[2017-09-08] MEDS: HEPARIN NA (PORCINE) 5,000 UNITS/ML 1ML VIAL SQ SCH ×3 (05:37→21:45)
[2017-09-08] MEDS ORDERED: ACETAMINOPHEN 1000 MG/100 ML VIAL (NON FORMULARY) IVPB ONE ×2 (06:41→07:05)
[2017-09-08 07:29] LABS: ALBUMIN 3.4 g/dl (3.4-5.0); ALK PHOS 127 U/L (45-117); ANION GAP 9 (8-16); BILIRUBIN,TOTAL 0.8 mg/dL (0.2-1.0); CHLORIDE 107 mmol/L (98-107); CO2 25 mmol/L (21-32); CREATININE 0.5 mg/dL (0.7-1.3); GLUCOSE,RANDOM 96 mg/dL (74-106); POTASSIUM 3.7 mmol/L (3.5-5.1); SGOT/AST 25 U/L (15-37); SGPT/ALT 37 U/L (12-78); SODIUM 141 mmol/L (136-145); TOT PROT 7.3 g/dl (6.4-8.2)
[2017-09-08 07:38] LABS: BASO % 1.3 % (0-2.0); EOS % 2.2 % (0-4.5); HEMATOCRIT 35.4 % (35.4-49); HEMOGLOBIN 11.6 GM/dL (11.7-16.9); LYMPH % 38.7 % (8-40); MCH 32.4 pg (25.7-33.7); MCHC 32.9 g/dl (32.0-35.9); MEAN CELL VOLUME 98.5 fl (80-96); MEAN PLT VOLUME 7.8 fl (7.5-11.1); MONO % 6.6 % (3.8-10.2); NEUT % 51.2 % (42.8-82.8); PLATELET COUNT 343 K/MM3 (134-434); RDW 14.1 % (11.9-15.9); WHITE BLOOD COUNT 10.3 K/mm3 (4.0-10.0)
[2017-09-08 08:08] LABS: BLOOD UREA NITROGEN 2 mg/dL (7-18)
--- NOTE | 2017-09-08 09:26 | PN ---
Progress Note (short form) - Note Progress Note: POD#3 Unable to verbalize/complain due to MR status. Appears comfortable. No bowel function recorded. Spoke with pt's RN and she confirmed no function yet. Afebrile. AVSS. CBC, BMP 01//18 06:05 01/09/18 06:05 Gen: nad Abd: Softly distended (baseline?). incision c/d/i. G-tube in place/patent. Problem List - Problems (1) S/P exploratory laparotomy Assessment/Plan: POD #3 s/p ex-lap for pneumoperitoneum with negative perforated viscous Continue medical management Can resume G-tube feeds GI/DVT ppx Above discussed with Dr. Cooley and agrees. Code(s): Z98.890 - OTHER SPECIFIED POSTPROCEDURAL STATES
[2017-09-08 09:50] LABS: URINE APPEARANCE CLEAR; URINE BILIRUBIN NEGATIVE (NEGATIVE); URINE BLOOD 1+ (NEGATIVE); URINE COLOR YELLOW; URINE GLUCOSE (UA) NEGATIVE (NEGATIVE); URINE KETONE 1+ (NEGATIVE); URINE LEUK ESTERASE TRACE (NEGATIVE); URINE NITRITE NEGATIVE (NEGATIVE); URINE PROTEIN NEGATIVE (NEGATIVE); URINE UROBILINOGEN NEGATIVE mg/dL (0.2-1.0)
[2017-09-08 10:02] LABS: EPI CELLS RARE /HPF (FEW); URINE HYALINE CAST 2 /lpf; URINE MUCUS RARE
[2017-09-08] MEDS: levETIRAcetam 500 MG/5 ML INJECTION VIAL IVPB SCH (10:13)
[2017-09-08] MEDS: Lacosamide 200 MG/20 ML VIAL IVPB SCH (10:46)
--- NOTE | 2017-09-08 11:53 | PN ---
Teaching Attending Note Name of Resident: Mirza Ritchie ATTENDING PHYSICIAN STATEMENT I saw and evaluated the patient. I reviewed the resident's note and discussed the case with the resident. I agree with the resident's findings and plan as documented. SUBJECTIVE: OBJECTIVE: Vital Signs Temperature 101.6 F H 09/08/17 05:00 Pulse Rate 112 H 09/08/17 05:00 Respiratory Rate 18 09/08/17 05:00 Blood Pressure 133/94 09/08/17 05:00 O2 Sat by Pulse Oximetry (%) 94 L 09/07/17 21:00 CBCD WBC 10.3 K/mm3 (4.0-10.0) H 09/08/17 06:05 RBC 3.60 M/mm3 (4.00-5.60) L 09/08/17 06:05 Hgb 11.6 GM/dL (11.7-16.9) L 09/08/17 06:05 Hct 35.4 % (35.4-49) 09/08/17 06:05 MCV 98.5 fl (80-96) H 09/08/17 06:05 MCHC 32.9 g/dl (32.0-35.9) 09/08/17 06:05 RDW 14.1 % (11.9-15.9) 09/08/17 06:05 Plt Count 343 K/MM3 (134-434) 09/08/17 06:05 MPV 7.8 fl (7.5-11.1) 09/08/17 06:05 CMP Sodium 141 mmol/L (136-145) 09/08/17 06:05 Potassium 3.7 mmol/L (3.5-5.1) 09/08/17 06:05 Chloride 107 mmol/L (98-107) 09/08/17 06:05 Carbon Dioxide 25 mmol/L (21-32) 09/08/17 06:05 Anion Gap 9 (8-16) 09/08/17 06:05 BUN 2 mg/dL (7-18) L* D 09/08/17 06:05 Creatinine 0.5 mg/dL (0.7-1.3) L D 09/08/17 06:05 Creat Clearance w eGFR > 60 (>60) 09/08/17 06:05 Random Glucose 96 mg/dL (74-106) 09/08/17 06:05 Calcium 9.0 mg/dL (8.5-10.1) 09/08/17 06:05 Total Bilirubin 0.8 mg/dL (0.2-1.0) 09/08/17 06:05 AST 25 U/L (15-37) 09/08/17 06:05 ALT 37 U/L (12-78) 09/08/17 06:05 Alkaline Phosphatase 127 U/L (45-117) H 09/08/17 06:05 Total Protein 7.3 g/dl (6.4-8.2) 09/08/17 06:05 Albumin 3.4 g/dl (3.4-5.0) 09/08/17 06:05 CARDIAC ENZYMES Creatine Kinase 155 IU/L (39-308) 09/04/17 20:15 Troponin I < 0.02 ng/ml (0.00-0.05) 09/04/17 20:15 Current Medications Generic Name Dose Route Start Last Admin Trade Name Freq PRN Reason Stop Dose Admin Albuterol Sulfate 1 amp 09/05/17 18:29 Ventolin 0.083% Nebulizer Soln - NEB QIDR PRN ASTHMA Albuterol/Ipratropium 1 amp 09/08/17 08:59 Duoneb - NEB RQID AUNG Heparin Sodium (Porcine) 5,000 unit 09/06/17 14:00 09/08/17 05:37 Heparin - SQ 5,000 unit TID AUNG Administration Potassium Chloride/Dextrose/Sod Cl 20 meq in 1,000 mls @ 75 mls/hr 09/05/17 14 :15 09/07/17 22:27 D5-1/2ns+20 Meq Kcl - IV 75 mls/hr ASDIR AUNG Administration Lacosamide 50 mg 09/05/17 22:00 09/08/17 10:46 Vimpat Injection - IVPB 50 mg BID AUNG Administration Levetiracetam 1,500 mg 09/06/17 10:00 09/08/17 10:13 Keppra Injection - IVPB 1,500 mg DAILY AUNG Administration Levetiracetam 1,700 mg 09/05/17 22:00 09/07/17 22:35 Keppra Injection - IVPB 1,700 mg HS AUNG Administration Morphine Sulfate 2 mg 09/05/17 14:03 Morphine Injection - IVPB Q6H PRN PAIN LEVEL 6-10 Scopolamine HBr 1 patch 09/06/17 23:30 09/06/17 23:24 Transderm-Scop - TD 1 patch Q48H AUNG Administration Home Medications Medication Instructions Recorded Albuterol 0.083% Nebulizer Martha 1 neb NEB QID PRN 12/03/16 [Ventolin 0.083% Nebulizer Soln -] Clobetasol Propionate/Emoll 15 gm TP DAILY 12/03/16 [Clobetasol Emollient 0.05% Crm] Diazepam 2 mg PO TID 12/03/16 Gabapentin 400 mg PO BID 12/03/16 Glycopyrrolate in Water/Pf 1 mg IV BID 12/03/16 [Glycopyrrolate 1 mg/5 ml-Water] Lacosamide [Vimpat -] 50 mg PO BID 12/03/16 Montelukast Na [Singulair -] 5 mg PO HS 12/03/16 Phenobarbital 20 mg GT DAILY 12/03/16 Scopolamine [Transderm-Scop] 1 each TD Q2D 12/03/16 Albuterol 2.5/Ipratropium 0.5 1 neb IH QID 09/04/17 [Duoneb -] Lactulose [Cephulac -] 30 ml GT DAILY 09/04/17 Levetiracetam [Keppra Oral 1,500 mg GT DAILY 09/04/17 Solution -] Levetiracetam [Keppra Oral 1,700 mg GT HS 09/04/17 Solution -] ASSESSMENT AND PLAN: # POD#3 exploratory laparotomy for pneumoperitoneum. As per surgeon: no perforation of hollow viscus found; and G tube was intact As per surgery can resume Can resume G-tube feeds, resume al the G-tube meds. # Hx of Seizure continue with IV formulation since patient had surgery, will hold all the po meds.for now, until is ok with the surgeon. as per surgery is ok to start his po meds. will convert IV Keppra and Vimpat back to oral. Hx of MR DVT px sCds now, heparin sq in am GI Px: protonix
--- NOTE | 2017-09-08 13:31 | PN ---
Physical Exam: SUBJECTIVE: Patient seen and examined pt spiked a fever early this am, given tylenol and hall-cultured. Pt appears comfortable, non-verbal, non-communicative. OBJECTIVE: Vital Signs Period Temp Pulse Resp BP Sys/Jay Pulse Ox Last 24 Hr 98.3 F-101.6 F 105-112 18-20 97-137/50-94 94 GENERAL: young male, lying in bed curled up, gurgling sounds, in NAD HEENT: EOMI, gurgling NECK: Trachea midline, full range of motion, supple. LUNGS: gurgling, upper airway sounds, could not appreciate rales or rhonchi HEART: Regular rate and rhythm, S1, S2 without murmur, rub or gallop. ABDOMEN: mildly distended, normoactive BS, bandages over incision sites, soft, non-tender to palpation EXTREMITIES: 2+ pulses, warm, well-perfused, no edema. NEUROLOGICAL: can't fully assess due to CP Laboratory Results - last 24 hr 09/08/17 09/08/17 09/08/17 06:05 06:05 08:45 WBC 10.3 H RBC 3.60 L Hgb 11.6 L Hct 35.4 MCV 98.5 H MCH 32.4 MCHC 32.9 RDW 14.1 Plt Count 343 MPV 7.8 Neutrophils % 51.2 Lymphocytes % 38.7 Monocytes % 6.6 Eosinophils % 2.2 D Basophils % 1.3 Sodium 141 Potassium 3.7 Chloride 107 Carbon Dioxide 25 Anion Gap 9 BUN 2 L* D Creatinine 0.5 L D Creat Clearance w eGFR > 60 Random Glucose 96 Calcium 9.0 Total Bilirubin 0.8 AST 25 ALT 37 Alkaline Phosphatase 127 H Total Protein 7.3 Albumin 3.4 Urine Color Yellow Urine Appearance Clear Urine pH 8.0 Ur Specific [place] 1.016 Urine Protein Negative Urine Glucose (UA) Negative Urine Ketones 1+ H Urine Blood 1+ H Urine Nitrite Negative Urine Bilirubin Negative Urine Urobilinogen Negative Ur Leukocyte Esterase Trace Urine WBC (Auto) 8 Urine RBC (Auto) 17 Ur Epithelial Cells Rare Hyaline Casts 2 Urine Mucus Rare Active Medications Generic Name Dose Route Start Last Admin Trade Name Freq PRN Reason Stop Dose Admin Albuterol Sulfate 1 amp 09/05/17 18:29 Ventolin 0.083% Nebulizer Soln - NEB QIDR PRN ASTHMA Albuterol/Ipratropium 1 amp 09/08/17 08:59 09/08/17 10:40 Duoneb - NEB 1 amp RQID AUNG Administration Diazepam 2 mg 09/08/17 14:00 Valium - PO TID AUNG Heparin Sodium (Porcine) 5,000 unit 09/06/17 14:00 09/08/17 05:37 Heparin - SQ 5,000 unit TID AUNG Administration Potassium Chloride/Dextrose/Sod Cl 20 meq in 1,000 mls @ 75 mls/hr 09/05/17 14 :15 09/07/17 22:27 D5-1/2ns+20 Meq Kcl - IV 75 mls/hr ASDIR AUNG Administration Lacosamide 50 mg 09/08/17 22:00 Vimpat Liquid - GT BID AUNG Levetiracetam 1,700 mg 09/08/17 22:00 Keppra Oral Solution - GT HS AUNG Levetiracetam 1,500 mg 09/09/17 07:00 Keppra Oral Solution - GT AM AUNG Montelukast Sodium 5 mg 09/08/17 22:00 Singulair - PO HS AUNG Morphine Sulfate 2 mg 09/05/17 14:03 Morphine Injection - IVPB Q6H PRN PAIN LEVEL 6-10 Phenobarbital 20 mg 09/08/17 12:15 Phenobarbital Liquid - GT DAILY AUNG Scopolamine HBr 1 patch 09/06/17 23:30 09/06/17 23:24 Transderm-Scop - TD 1 patch Q48H AUNG Administration ASSESSMENT/PLAN: 22M with a significant PMH of cortical blindness, cerebral palsy, spastic quadriplegia, seizure disorder, reactive airway disease, YAKELIN, GERD, HTN, strabismus, scoliosis, nonverbal presents to ED brought by ambulance from [facility] for temp recorded rectally as 97.3 and hypotension, admitted for suspected perforated viscous. # suspected perforated viscus: -no perforated viscous found on surgery. 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 ID on board, Rec no abx at this time -Bcx: P -Ucx: P -UA: trace leukocyte esterase, 8 wbc -CXR: LLL infiltrate #tachycardia -likely 2/2 pain -pain control -continue to monitor #Seizure disorder -continue home keppra #Reactive airway disease -duonebs standing and PRN -continue scopolamine #F/E/N/ppx -D5-1/2NS -K repleted -G-tube feeds -no GI ppx -heparin Case discussed with attending, Dr. Mccall. -Mirza Ritchie MD PGY1 Visit type - Emergency Visit Emergency Visit: Yes ED Registration Date: 09/05/17 Care time: The patient presented to the Emergency Department on the above date and was hospitalized for further evaluation of their emergent condition. - New Patient This patient is new to me today: No - Critical Care Critical Care patient: No
[2017-09-08] MEDS ORDERED: POTASSIUM CHLORIDE TABS 20 MEQ TABLET.ER (FP) PO ONE (14:30)
[2017-09-08] MEDS: diazePAM 2 MG TABLET PO SCH ×2 (14:31→21:45)
[2017-09-08] MEDS: PHENobarbital 20 MG/5 ML UNIT-DOSE CUP GT SCH (14:31)
--- NOTE | 2017-09-08 15:01 | PN ---
Progress Note, Physician History of Present Illness: Temp spike 101.6 noted No acute distress Non-verbal WBC 10.3 - Current Medication List Current Medications: Active Medications Albuterol Sulfate (Ventolin 0.083% Nebulizer Soln -) 1 amp NEB QIDR PRN PRN Reason: ASTHMA Albuterol/Ipratropium (Duoneb -) 1 amp NEB RQID [facility] Last Admin: 09/08/17 10:40 Dose: 1 amp Diazepam (Valium -) 2 mg PO TID [facility] Last Admin: 09/08/17 14:31 Dose: 2 mg Heparin Sodium (Porcine) (Heparin -) 5,000 unit SQ TID [facility] Last Admin: 09/08/17 14:31 Dose: 5,000 unit Potassium Chloride/Dextrose/Sod Cl (D5-1/2ns+20 Meq Kcl -) 20 meq in 1,000 mls @ 75 mls/hr IV ASDIR [facility] Last Admin: 09/07/17 22:27 Dose: 75 mls/hr Lacosamide (Vimpat Liquid -) 50 mg GT BID AUNG Levetiracetam (Keppra Oral Solution -) 1,700 mg GT HS AUNG Levetiracetam (Keppra Oral Solution -) 1,500 mg GT AM AUNG Montelukast Sodium (Singulair -) 5 mg GT HS AUNG Morphine Sulfate (Morphine Injection -) 2 mg IVPB Q6H PRN PRN Reason: PAIN LEVEL 6-10 Phenobarbital (Phenobarbital Liquid -) 20 mg GT DAILY [facility] Last Admin: 09/08/17 14:31 Dose: 20 mg Scopolamine HBr (Transderm-Scop -) 1 patch TD Q48H [facility] Last Admin: 09/06/17 23:24 Dose: 1 patch - Objective Vital Signs: Vital Signs Temperature 98.7 F 09/08/17 14:41 Pulse Rate 112 H 09/08/17 05:00 Respiratory Rate 18 09/08/17 14:41 Blood Pressure 133/94 09/08/17 05:00 O2 Sat by Pulse Oximetry (%) 94 L 09/07/17 21:00 Constitutional: Yes: No Distress Eyes: Yes: Conjunctiva Clear Cardiovascular: Yes: Regular Rate and Rhythm, S1, S2 Respiratory: Yes: Rhonchi Gastrointestinal: Yes: Normal Bowel Sounds, Soft, Other (pos op dressing in place). No: Tenderness Labs: CBC, BMP 09/08/17 06:05 09/08/17 06:05 INR, PTT INR 1.73 (0.82-1.09) H 09/04/17 20:15 Assessment/Plan POD #4 laparotomy Post op fever Cerebral palsy Repeat c/s obtained CXR reviewed no infiltrate noted Observe off antibiotics
[2017-09-08] MEDS: D5-1/2NS+20 MEQ KCL - 20 MEQ/1,000 ML INFUS.BAG IV SCH (17:30)
[2017-09-08] MEDS ORDERED: PT OWN MED DRAWER 7, Y5N ONE (21:27)
[2017-09-08] MEDS: levETIRAcetam 500 MG/5 ML ORAL SOLUTION (UNIT-DOSE CUPS) GT SCH (21:46)
[2017-09-08] MEDS: MONTELUKAST NA 5 MG TAB.CHEW GT SCH (21:46)
[2017-09-08] MEDS: Lacosamide 50 MG/5 ML ORAL SOLUTION UNIT CUPS GT SCH (21:59)
[2017-09-08] MEDS ORDERED: Lacosamide 50 MG/5 ML ORAL SOLUTION UNIT CUPS PO SCH (22:00)
[2017-09-08] MEDS: SCOPOLAMINE HYDROBROMIDE 1 PATCH PATCH.TD72 TD SCH (22:39)
[2017-09-09] MEDS ORDERED: PT OWN MED DRAWER 7, Y5N ONE ×6 (05:57→22:44)
[2017-09-09] MEDS: HEPARIN NA (PORCINE) 5,000 UNITS/ML 1ML VIAL SQ SCH ×3 (06:09→23:02)
[2017-09-09] MEDS: levETIRAcetam 500 MG/5 ML ORAL SOLUTION (UNIT-DOSE CUPS) GT SCH ×2 (06:09→23:03)
[2017-09-09] MEDS: diazePAM 2 MG TABLET PO SCH ×3 (06:09→23:02)
[2017-09-09] MEDS ORDERED: levETIRAcetam 500 MG/5 ML ORAL SOLUTION (UNIT-DOSE CUPS) PO SCH (07:00)
[2017-09-09 07:09] LABS: BASO % 0.5 % (0-2.0); EOS % 2.8 % (0-4.5); HEMATOCRIT 35.8 % (35.4-49); HEMOGLOBIN 11.7 GM/dL (11.7-16.9); LYMPH % 26.2 % (8-40); MCH 32.1 pg (25.7-33.7); MCHC 32.7 g/dl (32.0-35.9); MEAN CELL VOLUME 98.1 fl (80-96); MEAN PLT VOLUME 7.5 fl (7.5-11.1); MONO % 10.2 % (3.8-10.2); NEUT % 60.3 % (42.8-82.8); PLATELET COUNT 317 K/MM3 (134-434); RBC 3.65 M/mm3 (4.00-5.60); RDW 13.7 % (11.9-15.9); WHITE BLOOD COUNT 6.4 K/mm3 (4.0-10.0)
[2017-09-09 07:34] LABS: ALBUMIN 3.5 g/dl (3.4-5.0); ANION GAP 8 (8-16); BLOOD UREA NITROGEN 3 mg/dL (7-18); CHLORIDE 104 mmol/L (98-107); CO2 25 mmol/L (21-32); CREATININE 0.5 mg/dL (0.7-1.3); GLUCOSE,RANDOM 83 mg/dL (74-106); POTASSIUM 3.9 mmol/L (3.5-5.1); SGOT/AST 26 U/L (15-37); SGPT/ALT 40 U/L (12-78); SODIUM 137 mmol/L (136-145)
[2017-09-09 07:36] LABS: ALK PHOS 133 U/L (45-117); BILIRUBIN,TOTAL 0.8 mg/dL (0.2-1.0); TOT PROT 7.5 g/dl (6.4-8.2)
[2017-09-09] MEDS: ALBUTEROL SO4 2.5/IPRATROPIUM 0.5 INH SOL 3 ML VIAL.NEB. NEB SCH ×4 (08:35→21:40)
[2017-09-09] MEDS: PHENobarbital 20 MG/5 ML UNIT-DOSE CUP GT SCH (11:41)
[2017-09-09] MEDS: Lacosamide 50 MG/5 ML ORAL SOLUTION UNIT CUPS GT SCH ×2 (11:41→23:05)
[2017-09-09] MEDS: ACETAMINOPHEN 1000 MG/100 ML VIAL (NON FORMULARY) IVPB PRN (11:47)
--- NOTE | 2017-09-09 17:41 | PN ---
Physical Exam: SUBJECTIVE: Patient seen and examined No acute events overnight. Pt non-communicative at baseline. OBJECTIVE: Vital Signs Period Temp Pulse Resp BP Sys/Jay Pulse Ox Last 24 Hr 97.9 F-99.2 F 104-116 18-20 106-140/61-85 94 GENERAL: young male, lying in bed curled up, gurgling sounds, in NAD HEENT: EOMI, gurgling NECK: Trachea midline, full range of motion, supple. LUNGS: gurgling, upper airway sounds, could not appreciate rales or rhonchi HEART: Regular rate and rhythm, S1, S2 without murmur, rub or gallop. ABDOMEN: ND, normoactive BS, soft, bandages over incision site which is clean, dry and intact, non-tender to palpation EXTREMITIES: 2+ pulses, warm, well-perfused, no edema. NEUROLOGICAL: can't fully assess due to CP Laboratory Results - last 24 hr 09/09/17 09/09/17 06:30 06:30 WBC 6.4 D RBC 3.65 L Hgb 11.7 Hct 35.8 MCV 98.1 H MCH 32.1 MCHC 32.7 RDW 13.7 Plt Count 317 MPV 7.5 Neutrophils % 60.3 Lymphocytes % 26.2 D Monocytes % 10.2 Eosinophils % 2.8 Basophils % 0.5 Sodium 137 Potassium 3.9 Chloride 104 Carbon Dioxide 25 Anion Gap 8 BUN 3 L D Creatinine 0.5 L Creat Clearance w eGFR > 60 Random Glucose 83 Calcium 9.0 Total Bilirubin 0.8 AST 26 ALT 40 Alkaline Phosphatase 133 H Total Protein 7.5 Albumin 3.5 Active Medications Generic Name Dose Route Start Last Admin Trade Name Freq PRN Reason Stop Dose Admin Acetaminophen 750 mg 09/09/17 10:10 09/09/17 11:47 Ofirmev Injection - IVPB 750 mg Q6H PRN Administration FEVER Albuterol Sulfate 1 amp 09/05/17 18:29 Ventolin 0.083% Nebulizer Soln - NEB QIDR PRN ASTHMA Albuterol/Ipratropium 1 amp 09/08/17 08:59 09/09/17 12:45 Duoneb - NEB 1 amp RQID AUNG Administration Diazepam 2 mg 09/08/17 14:00 09/09/17 13:47 Valium - PO 2 mg TID AUNG Administration Heparin Sodium (Porcine) 5,000 unit 09/06/17 14:00 09/09/17 13:47 Heparin - SQ 5,000 unit TID AUNG Administration Potassium Chloride/Dextrose/Sod Cl 20 meq in 1,000 mls @ 75 mls/hr 09/05/17 14 :15 09/08/17 17:30 D5-1/2ns+20 Meq Kcl - IV 75 mls/hr ASDIR AUNG Administration Lacosamide 50 mg 09/08/17 22:00 09/09/17 11:41 Vimpat Liquid - GT 50 mg BID AUNG Administration Levetiracetam 1,700 mg 09/08/17 22:00 09/08/17 21:46 Keppra Oral Solution - GT 1,700 mg HS AUNG Administration Levetiracetam 1,500 mg 09/09/17 07:00 09/09/17 06:09 Keppra Oral Solution - GT 1,500 mg AM AUNG Administration Montelukast Sodium 5 mg 09/08/17 22:00 09/08/17 21:46 Singulair - GT 5 mg HS AUNG Administration Morphine Sulfate 2 mg 09/05/17 14:03 Morphine Injection - IVPB Q6H PRN PAIN LEVEL 6-10 Phenobarbital 20 mg 09/08/17 12:15 09/09/17 11:41 Phenobarbital Liquid - GT 20 mg DAILY AUNG Administration Scopolamine HBr 1 patch 09/06/17 23:30 09/08/17 22:39 Transderm-Scop - TD 1 patch Q48H AUNG Administration ASSESSMENT/PLAN: 22M with a significant PMH of cortical blindness, cerebral palsy, spastic quadriplegia, seizure disorder, reactive airway disease, YAKELIN, GERD, HTN, strabismus, scoliosis, nonverbal presents to ED brought by ambulance from [facility] for temp recorded rectally as 97.3 and hypotension, admitted for suspected perforated viscous. # suspected perforated viscus: -no perforated viscous found on surgery. megacolon found, unclear etiology -continue D5-1/2NS -per surgery, continue G-tube feeds -pain control with IV motrin and PRN morphine #fever -no fever overnight -per ID, no abx -Bcx: P -Ucx: P -UA: trace leukocyte esterase, 8 wbc -CXR: LLL infiltrate #tachycardia -likely 2/2 pain -pain control -continue to monitor #Seizure disorder -continue home keppra #Reactive airway disease -duonebs standing and PRN -continue scopolamine #F/E/N/ppx -D5-1/2NS -wnl -G-tube feeds -no GI ppx -heparin #Dispo -medically cleared for discharge. -hospital course discussed with Eron Pride -fax over discharge summary to [phone] -nurse to call Eron charge nurse for signout at [phone] Case discussed with attending, Dr. Ray. -Mirza Ritchie MD PGY1 Visit type - Emergency Visit Emergency Visit: Yes ED Registration Date: 09/05/17 Care time: The patient presented to the Emergency Department on the above date and was hospitalized for further evaluation of their emergent condition. - New Patient This patient is new to me today: No - Critical Care Critical Care patient: No
--- NOTE | 2017-09-09 20:05 | PN ---
Teaching Attending Note Name of Resident: Mirza Ritchie ATTENDING PHYSICIAN STATEMENT I saw and evaluated the patient. I reviewed the resident's note and discussed the case with the resident. I agree with the resident's findings and plan as documented. SUBJECTIVE: No events over night OBJECTIVE: NAD, non communicative CV: RRr Lungs : course breath sounds b/l abd : soft, clean dressing over mid line abd surgical wound. nl BS , NT. PEG in Ext: nom pitting edema on feet ASSESSMENT AND PLAN: 22 y/o man with h/o MR, cerebral palsy, Seizure and other medical problems who presented with fever. 1- fever , persisted post OP.last fever yesterday am, no recurrence. off Abx now , with no recurrence . Cxray reviewed, no infiltrate seen on my exam. U cx neg follow blood cx monitor off abx 2- s/p laparotomy, no perforation seen. - cont conservative mg TF resumed and toelrated 3- seizure disorder , cont meds through PEG possible dc tomorrow
[2017-09-09] MEDS: D5-1/2NS+20 MEQ KCL - 20 MEQ/1,000 ML INFUS.BAG IV SCH (23:03)
[2017-09-09] MEDS: MONTELUKAST NA 5 MG TAB.CHEW GT SCH (23:05)
[2017-09-10] MEDS: diazePAM 2 MG TABLET PO SCH ×3 (06:02→22:56)
[2017-09-10] MEDS: HEPARIN NA (PORCINE) 5,000 UNITS/ML 1ML VIAL SQ SCH ×3 (06:02→22:56)
[2017-09-10] MEDS: levETIRAcetam 500 MG/5 ML ORAL SOLUTION (UNIT-DOSE CUPS) GT SCH ×2 (06:02→22:57)
[2017-09-10 07:34] LABS: HEMOGLOBIN 11.2 GM/dL (11.7-16.9); MCH 32.2 pg (25.7-33.7); MCHC 32.8 g/dl (32.0-35.9); MEAN CELL VOLUME 98.1 fl (80-96); MEAN PLT VOLUME 8.4 fl (7.5-11.1); PLATELET COUNT 268 K/MM3 (134-434); RBC 3.47 M/mm3 (4.00-5.60); WHITE BLOOD COUNT 8.5 K/mm3 (4.0-10.0)
[2017-09-10] MEDS: ALBUTEROL SO4 2.5/IPRATROPIUM 0.5 INH SOL 3 ML VIAL.NEB. NEB SCH ×4 (08:10→20:45)
[2017-09-10 08:15] LABS: ANION GAP 8 (8-16); BLOOD UREA NITROGEN 6 mg/dL (7-18); CALCIUM 8.3 mg/dL (8.5-10.1); CHLORIDE 106 mmol/L (98-107); CO2 25 mmol/L (21-32); CREATININE 0.4 mg/dL (0.7-1.3); GLUCOSE,RANDOM 95 mg/dL (74-106); SODIUM 139 mmol/L (136-145)
[2017-09-10] MEDS ORDERED: ONDANSETRON 4 MG/2 ML VIAL IVPUSH PRN (09:07)
[2017-09-10] MEDS ORDERED: PT OWN MED DRAWER 7, Y5N ONE ×2 (09:17→22:46)
--- NOTE | 2017-09-10 09:27 | PN ---
Progress Note (short form) - Note Progress Note: Attending Surgeon POD #5 Was tolerating tube feeding h/e vomited this AM; he was not yet up to goal; had large BM this AM VSS T 100.0 abdomen-incision c/d/i; tympanitic; non tender; o/w negative WBC and lytes OK UO good IMP: s/p ex lap for pneumoperitoneum w/o source found PLAN: Suggest hold GT feeds; give IVF; AXR was ordered; will f/u. Ankit Cooley MD FACS
--- NOTE | 2017-09-10 09:55 | OP ---
DATE OF OPERATION: 09/05/2017 PREOPERATIVE DIAGNOSIS: Pneumoperitoneum. POSTOPERATIVE DIAGNOSIS: No evidence of pneumoperitoneum. PROCEDURE: Exploratory laparotomy. SURGEON: Ankit Cooley MD SAFETY REPRESENTATIVE: Kelli Etienne PA-C ANESTHESIA: General. OPERATIVE FINDINGS: There was evidence of pneumoperitoneum on preoperative imaging on a CT scan of the abdomen and pelvis and chest x-ray. At the time of laparotomy, no evidence of pneumoperitoneum was identified. The operative findings at the time only showed a previously placed gastrostomy tube which was intact and evidence of previous abdominal surgery. DESCRIPTION OF PROCEDURE: The patient was placed on the operating table in supine position. After the induction of general anesthesia and the placement of sequential compression devices on the patient's lower extremities, a timeout was taken after the abdomen was prepped and draped in sterile fashion. The peritoneal cavity was entered through an upper midline incision. A complete exploration of the abdominal cavity was carried out sequentially from the right upper quadrant to the left upper quadrant to the left lower quadrant and the right lower quadrant. Specifically, no evidence of gastric perforation was encountered or perforation of the sigmoid colon. The previously placed gastrostomy was intact, and the lesser sac was entered without evidence of perforation of the posterior wall of the stomach. There was no evidence of gallbladder pathology or evidence of a perforated duodenal or pyloric channel ulcer, and the rest of the findings were unremarkable. At this point, the abdominal cavity was closed in a single layer using continuous 0 looped Maxon and the skin edges reapproximated with surgical zelalem. Dry sterile dressings were placed and the procedure terminated at this point and the patient transferred to the postanesthesia care unit in stable condition, awake and at his baseline mental status. ESTIMATED BLOOD LOSS: Minimal. DRAINS: None. SPECIMENS: None. I, Ankit Cooley MD, was physically present in the operating room from the time the patient was placed on the operating table until he was transferred to the postanesthesia care unit in my accompaniment. MD CLEMENCIA Ratliff/[id number] MTDD
[2017-09-10] MEDS: PHENobarbital 20 MG/5 ML UNIT-DOSE CUP GT SCH (10:26)
[2017-09-10] MEDS: Lacosamide 50 MG/5 ML ORAL SOLUTION UNIT CUPS GT SCH ×2 (10:26→22:57)
[2017-09-10 10:36] LABS: POTASSIUM 4.3 mmol/L (3.5-5.1)
[2017-09-10] MEDS: CLINDAMYCIN 300 MG PREMIX IVPB 300 MG/50 ML BAG IVPB SCH ×2 (11:00→18:27)
[2017-09-10] MEDS: D5-1/2NS+20 MEQ KCL - 20 MEQ/1,000 ML INFUS.BAG IV SCH (14:49)
--- NOTE | 2017-09-10 15:58 | PN ---
Progress Note, Physician History of Present Illness: Recurrent temps noted Repeat BC no growth No acute distress Non-verbal WBC WNL - Current Medication List Current Medications: Active Medications Acetaminophen (Ofirmev Injection -) 750 mg IVPB Q6H PRN PRN Reason: FEVER Last Admin: 09/09/17 11:47 Dose: 750 mg Albuterol Sulfate (Ventolin 0.083% Nebulizer Soln -) 1 amp NEB QIDR PRN PRN Reason: ASTHMA Albuterol/Ipratropium (Duoneb -) 1 amp NEB RQID [facility] Last Admin: 09/10/17 08:10 Dose: 1 amp Diazepam (Valium -) 2 mg PO TID [facility] Last Admin: 09/10/17 14:48 Dose: 2 mg Heparin Sodium (Porcine) (Heparin -) 5,000 unit SQ TID [facility] Last Admin: 09/10/17 14:48 Dose: 5,000 unit Clindamycin Phosphate (Cleocin 300 Mg Premix Ivpb) 300 mg in 50 mls @ 100 mls/ hr IVPB Q8H-IV [facility] Last Admin: 09/10/17 11:00 Dose: 100 mls/hr Potassium Chloride/Dextrose/Sod Cl (D5-1/2ns+20 Meq Kcl -) 20 meq in 1,000 mls @ 50 mls/hr IV ASDIR [facility] Last Admin: 09/10/17 14:49 Dose: 50 mls/hr Lacosamide (Vimpat Liquid -) 50 mg GT BID [facility] Last Admin: 09/10/17 10:26 Dose: 50 mg Levetiracetam (Keppra Oral Solution -) 1,700 mg GT HS [facility] Last Admin: 09/09/17 23:03 Dose: 1,700 mg Levetiracetam (Keppra Oral Solution -) 1,500 mg GT AM [facility] Last Admin: 09/10/17 06:02 Dose: 1,500 mg Montelukast Sodium (Singulair -) 5 mg GT HS [facility] Last Admin: 09/09/17 23:05 Dose: 5 mg Ondansetron HCl (Zofran Injection) 4 mg IVPUSH Q6H PRN PRN Reason: NAUSEA Last Admin: 09/10/17 09:18 Dose: 4 mg Phenobarbital (Phenobarbital Liquid -) 20 mg GT DAILY [facility] Last Admin: 09/10/17 10:26 Dose: 20 mg Scopolamine HBr (Transderm-Scop -) 1 patch TD Q48H [facility] Last Admin: 09/08/17 22:39 Dose: 1 patch - Objective Vital Signs: Vital Signs Temperature 98.9 F 09/10/17 15:37 Pulse Rate 103 H 09/10/17 15:37 Respiratory Rate 22 09/10/17 15:37 Blood Pressure 122/69 09/10/17 15:37 O2 Sat by Pulse Oximetry (%) 94 L 09/10/17 08:15 Constitutional: Yes: No Distress Cardiovascular: Yes: Regular Rate and Rhythm, S1, S2 Respiratory: Yes: CTA Bilaterally Gastrointestinal: Yes: Normal Bowel Sounds, Soft, Other (sl distended) Labs: CBC, BMP 09/10/17 06:00 09/10/17 06:00 INR, PTT INR 1.73 (0.82-1.09) H 09/04/17 20:15 Assessment/Plan Post op laparotomy Fever ? aspiration Cerebral palsy Empiric tx for possible aspiration pneumonia with clindamycin/ ceftriaxone
[2017-09-10] MEDS: CEFTRIAXONE 1 G/50 ML PREMIX 50 ML IVPB SCH (16:59)
--- NOTE | 2017-09-10 17:33 | PN ---
Physical Exam: SUBJECTIVE: Patient seen and examined Overnight, pt spiked fever,had emesis and diarrhea, given tylenol, G-tube feeds discontinued. This am, pt appearing comfortable, non-communicative at baseline. OBJECTIVE: Vital Signs Period Temp Pulse Resp BP Sys/Jay Pulse Ox Last 24 Hr 98.9 F-100.8 F 94-119 18-22 100-140/55-75 94-97 GENERAL: young male, lying in bed curled up, gurgling sounds, in NAD HEENT: EOMI, gurgling NECK: Trachea midline, full range of motion, supple. LUNGS: upper airway sounds, could not appreciate rales or rhonchi HEART: Regular rate and rhythm, S1, S2 without murmur, rub or gallop. ABDOMEN: minimal distention, normoactive BS, soft, bandages over incision site which is clean, dry and intact, non-tender to palpation EXTREMITIES: 2+ pulses, warm, well-perfused, no edema. NEUROLOGICAL: can't fully assess due to CP Laboratory Results - last 24 hr 09/10/17 09/10/17 06:00 06:00 WBC 8.5 D RBC 3.47 L Hgb 11.2 L Hct 34.0 L MCV 98.1 H MCH 32.2 MCHC 32.8 RDW 14.0 Plt Count 268 MPV 8.4 D Sodium 139 Potassium 4.3 Chloride 106 Carbon Dioxide 25 Anion Gap 8 BUN 6 L D Creatinine 0.4 L Random Glucose 95 Calcium 8.3 L Active Medications Generic Name Dose Route Start Last Admin Trade Name Freq PRN Reason Stop Dose Admin Acetaminophen 750 mg 09/09/17 10:10 09/09/17 11:47 Ofirmev Injection - IVPB 750 mg Q6H PRN Administration FEVER Albuterol Sulfate 1 amp 09/05/17 18:29 Ventolin 0.083% Nebulizer Soln - NEB QIDR PRN ASTHMA Albuterol/Ipratropium 1 amp 09/08/17 08:59 09/10/17 15:45 Duoneb - NEB 1 amp RQID [facility] Administration Diazepam 2 mg 09/08/17 14:00 09/10/17 14:48 Valium - PO 2 mg TID [facility] Administration Heparin Sodium (Porcine) 5,000 unit 09/06/17 14:00 09/10/17 14:48 Heparin - SQ 5,000 unit TID [facility] Administration Clindamycin Phosphate 300 mg in 50 mls @ 100 mls/hr 09/10/17 10:00 09/10/17 11:00 Cleocin 300 Mg Premix Ivpb IVPB 100 mls/hr Q8H-IV [facility] Administration Potassium Chloride/Dextrose/Sod Cl 20 meq in 1,000 mls @ 50 mls/hr 09/10/17 14 :42 09/10/17 14:49 D5-1/2ns+20 Meq Kcl - IV 50 mls/hr ASDIR [facility] Administration CEFTRIAXONE 1 G/50 ML PREMIX 50 mls @ 100 mls/hr 09/10/17 16:15 09/10/17 16: 59 Ceftriaxone 1 Gm-D5w Bag IVPB 100 mls/hr DAILY [facility] Administration Lacosamide 50 mg 09/08/17 22:00 09/10/17 10:26 Vimpat Liquid - GT 50 mg BID [facility] Administration Levetiracetam 1,700 mg 09/08/17 22:00 09/09/17 23:03 Keppra Oral Solution - GT 1,700 mg HS [facility] Administration Levetiracetam 1,500 mg 09/09/17 07:00 09/10/17 06:02 Keppra Oral Solution - GT 1,500 mg AM [facility] Administration Montelukast Sodium 5 mg 09/08/17 22:00 09/09/17 23:05 Singulair - GT 5 mg HS [facility] Administration Ondansetron HCl 4 mg 09/10/17 09:07 09/10/17 09:18 Zofran Injection IVPUSH 4 mg Q6H PRN Administration NAUSEA Phenobarbital 20 mg 09/08/17 12:15 09/10/17 10:26 Phenobarbital Liquid - GT 20 mg DAILY [facility] Administration Scopolamine HBr 1 patch 09/06/17 23:30 09/08/17 22:39 Transderm-Scop - TD 1 patch Q48H [facility] Administration CXR: resolved LLL opacity AXR: decreased abdominal distention ASSESSMENT/PLAN: 22M with a significant PMH of cortical blindness, cerebral palsy, spastic quadriplegia, seizure disorder, reactive airway disease, YAKELIN, GERD, HTN, strabismus, scoliosis, nonverbal presents to ED brought by ambulance from [facility] for temp recorded rectally as 97.3 and hypotension, admitted for suspected perforated viscous. # suspected perforated viscus: -no perforated viscous found on surgery. megacolon found, unclear etiology -continue D5-1/2NS -G-tube feeds discontinued -pain control with IV motrin and PRN morphine #fever -Tmax of 100.8 -per ID, clindamycin and ceftriaxone to cover for aspiration PNA -Bcx: nothing x 24h -Ucx: no growth- final -CXR: resolved LLL opacity -f/u C. diff #tachycardia -likely 2/2 pain and fever -pain control, APAP PRN -continue to monitor #Seizure disorder -continue home keppra #Reactive airway disease -duonebs standing and PRN -continue scopolamine #F/E/N/ppx -D5-1/2NS -wnl -NPO -no GI ppx -heparin #Dispo -pending response to abx -hospital course discussed with Eron Pride on 09/09 -fax over discharge summary to [phone] -nurse to call Eron charge nurse for signout at [phone] Case discussed with attending, Dr. Ray. -Mirza Ritchie MD PGY1 Visit type - Emergency Visit Emergency Visit: Yes ED Registration Date: 09/05/17 Care time: The patient presented to the Emergency Department on the above date and was hospitalized for further evaluation of their emergent condition. - New Patient This patient is new to me today: No - Critical Care Critical Care patient: No
[2017-09-10] MEDS: ACETAMINOPHEN 1000 MG/100 ML VIAL (NON FORMULARY) IVPB PRN (17:59)
--- NOTE | 2017-09-10 19:49 | PN ---
Teaching Attending Note Name of Resident: Mirza Ritchie ATTENDING PHYSICIAN STATEMENT I saw and evaluated the patient. I reviewed the resident's note and discussed the case with the resident. I agree with the resident's findings and plan as documented. SUBJECTIVE: seen at 9 am vomiting, and coughing OBJECTIVE: mild distress, vomiting , coughing and chocking . suctioned CV: regular rate, tachy Lungs : course breath sounds b/l Abd : soft, clean dressing over mid line abd surgical wound which look clean with zelalem . nl BS , NT. PEG in Ext: nom pitting edema on feet ASSESSMENT AND PLAN: 22 y/o man with h/o MR, cerebral palsy, Seizure and other medical problems who presented with fever. 1- Fever, persisted post OP. witnessed vomiting and coughing , igh suspicion for aspiration - will treat for aspiration PNA : clinda and CTX - cxray reviewed, no infiltrate but it does not r.o PNA - no signs of infection on abd wound - stop feeds KUB with no dilation in Bowel 2- S/p laparotomy, no perforation seen. - cont conservative mgt - hold TF 3- seizure disorder, cont meds HLOC
[2017-09-10] MEDS: SCOPOLAMINE HYDROBROMIDE 1 PATCH PATCH.TD72 TD SCH (22:57)
[2017-09-10] MEDS: MONTELUKAST NA 5 MG TAB.CHEW GT SCH (22:57)
[2017-09-11] MEDS: ACETAMINOPHEN 1000 MG/100 ML VIAL (NON FORMULARY) IVPB PRN (00:39)
[2017-09-11] MEDS: CLINDAMYCIN 300 MG PREMIX IVPB 300 MG/50 ML BAG IVPB SCH ×3 (01:22→17:59)
[2017-09-11] MEDS ORDERED: PT OWN MED DRAWER 7, Y5N ONE ×4 (03:48→20:10)
[2017-09-11] MEDS: HEPARIN NA (PORCINE) 5,000 UNITS/ML 1ML VIAL SQ SCH ×3 (06:23→21:19)
[2017-09-11] MEDS: diazePAM 2 MG TABLET PO SCH ×3 (06:23→21:22)
[2017-09-11] MEDS: levETIRAcetam 500 MG/5 ML ORAL SOLUTION (UNIT-DOSE CUPS) GT SCH ×2 (06:26→21:19)
[2017-09-11] MEDS: D5-1/2NS+20 MEQ KCL - 20 MEQ/1,000 ML INFUS.BAG IV SCH (06:27)
[2017-09-11] MEDS ORDERED: ACETAMINOPHEN 1000 MG/100 ML VIAL (NON FORMULARY) IVPB PRN (07:00)
[2017-09-11 08:34] LABS: HEMATOCRIT 32.8 % (35.4-49); HEMOGLOBIN 10.8 GM/dL (11.7-16.9); MCH 32.1 pg (25.7-33.7); MCHC 32.8 g/dl (32.0-35.9); MEAN CELL VOLUME 97.8 fl (80-96); MEAN PLT VOLUME 7.7 fl (7.5-11.1); PLATELET COUNT 277 K/MM3 (134-434); RBC 3.35 M/mm3 (4.00-5.60); RDW 13.9 % (11.9-15.9); WHITE BLOOD COUNT 12.9 K/mm3 (4.0-10.0)
[2017-09-11] MEDS: ALBUTEROL SO4 2.5/IPRATROPIUM 0.5 INH SOL 3 ML VIAL.NEB. NEB SCH ×4 (08:49→22:20)
[2017-09-11] MEDS: PHENobarbital 20 MG/5 ML UNIT-DOSE CUP GT SCH (10:16)
--- NOTE | 2017-09-11 10:46 | PN ---
Progress Note (short form) - Note Progress Note: Attending Surgeon POD #6 Baseline mental status; TF still on hold VSS T max > 102; now 100.3 abdo-soft;distended as baseline; incision c/d/i/ AXR reviewed IMP: stable post op w/ fever PLAN: Suggest restarting TF as per recommendation of nutrition note; continue preseent tx. o/w. Fermin Cooley MD FACS
[2017-09-11] MEDS: Lacosamide 50 MG/5 ML ORAL SOLUTION UNIT CUPS GT SCH ×2 (11:16→21:22)
--- NOTE | 2017-09-11 11:38 | PN ---
Progress Note, Physician History of Present Illness: Awake, non-verbal High grade fever overnight WBC elevated Started on empiric ceftriaxone/ clindamycin - Current Medication List Current Medications: Active Medications Acetaminophen (Ofirmev Injection -) 750 mg IVPB Q6H PRN PRN Reason: FEVER Albuterol/Ipratropium (Duoneb -) 1 amp NEB RQID [facility] Last Admin: 09/11/17 11:04 Dose: 1 amp Diazepam (Valium -) 2 mg PO TID [facility] Last Admin: 09/11/17 06:23 Dose: 2 mg Heparin Sodium (Porcine) (Heparin -) 5,000 unit SQ TID [facility] Last Admin: 09/11/17 06:23 Dose: 5,000 unit Clindamycin Phosphate (Cleocin 300 Mg Premix Ivpb) 300 mg in 50 mls @ 100 mls/ hr IVPB Q8H-IV [facility] Last Admin: 09/11/17 10:15 Dose: 100 mls/hr Potassium Chloride/Dextrose/Sod Cl (D5-1/2ns+20 Meq Kcl -) 20 meq in 1,000 mls @ 50 mls/hr IV ASDIR [facility] Last Admin: 09/11/17 06:27 Dose: 50 mls/hr CEFTRIAXONE 1 G/50 ML PREMIX (Ceftriaxone 1 Gm-D5w Bag) 50 mls @ 100 mls/hr IVPB DAILY [facility] Last Admin: 09/10/17 16:59 Dose: 100 mls/hr Lacosamide (Vimpat Liquid -) 50 mg GT BID [facility] Last Admin: 09/11/17 11:16 Dose: 50 mg Levetiracetam (Keppra Oral Solution -) 1,700 mg GT HS [facility] Last Admin: 09/10/17 22:57 Dose: 1,700 mg Levetiracetam (Keppra Oral Solution -) 1,500 mg GT AM [facility] Last Admin: 09/11/17 06:26 Dose: 1,500 mg Montelukast Sodium (Singulair -) 5 mg GT HS [facility] Last Admin: 09/10/17 22:57 Dose: 5 mg Ondansetron HCl (Zofran Injection) 4 mg IVPUSH Q6H PRN PRN Reason: NAUSEA Last Admin: 09/10/17 09:18 Dose: 4 mg Phenobarbital (Phenobarbital Liquid -) 20 mg GT DAILY [facility] Last Admin: 09/11/17 10:16 Dose: 20 mg Scopolamine HBr (Transderm-Scop -) 1 patch TD Q48H [facility] Last Admin: 09/10/17 22:57 Dose: 1 patch - Objective Vital Signs: Vital Signs Temperature 100.1 F H 09/11/17 04:40 Pulse Rate 82 09/11/17 08:49 Respiratory Rate 20 09/11/17 04:40 Blood Pressure 137/80 09/11/17 04:40 O2 Sat by Pulse Oximetry (%) 98 09/11/17 08:49 Constitutional: Yes: No Distress Eyes: Yes: Conjunctiva Clear Cardiovascular: Yes: Regular Rate and Rhythm, S1, S2 Respiratory: Yes: Rhonchi Gastrointestinal: Yes: Normal Bowel Sounds, Soft, Other (surgical wound without evidence of infection). No: Tenderness Edema: Yes Labs: CBC, BMP 09/11/17 07:30 09/10/17 06:00 INR, PTT INR 1.73 (0.82-1.09) H 09/04/17 20:15 Assessment/Plan Post op laparotomy Fever ? aspiration pneumonia Cerebral palsy Repeat blood c/s Continue empiric tx for possible aspiration pneumonia with clindamycin/ ceftriaxone
[2017-09-11] MEDS: CEFTRIAXONE 1 G/50 ML PREMIX 50 ML IVPB SCH (12:53)
--- NOTE | 2017-09-11 15:33 | PN ---
Physical Exam: SUBJECTIVE: Patient seen and examined Overnight, pt spiked 3 fevers, was given tylenol and ice packs. This am, pt appearing comfortable, non-communicative at baseline. OBJECTIVE: Vital Signs Period Temp Pulse Resp BP Sys/Jay Pulse Ox Last 24 Hr 98.8 F-102.6 F 82-123 18-22 115-137/61-80 96-98 GENERAL: young male, lying in bed, gurgling sounds, in NAD HEENT: EOMI, gurgling NECK: Trachea midline, full range of motion, supple. LUNGS: upper airway sounds, could not appreciate rales or rhonchi HEART: Regular rate and rhythm, S1, S2 without murmur, rub or gallop. ABDOMEN: minimal distention, normoactive BS, soft, bandages over incision site which is clean, dry and intact, abdominal rigidity upon deep palpation EXTREMITIES: 2+ pulses, warm, well-perfused, no edema. NEUROLOGICAL: can't fully assess due to CP Laboratory Results - last 24 hr 09/11/17 07:30 WBC 12.9 H D RBC 3.35 L Hgb 10.8 L Hct 32.8 L MCV 97.8 H MCH 32.1 MCHC 32.8 RDW 13.9 Plt Count 277 MPV 7.7 Active Medications Generic Name Dose Route Start Last Admin Trade Name Freq PRN Reason Stop Dose Admin Acetaminophen 750 mg 09/11/17 07:00 09/11/17 13:46 Ofirmev Injection - IVPB 750 mg Q6H PRN Administration FEVER Albuterol/Ipratropium 1 amp 09/08/17 08:59 09/11/17 11:04 Duoneb - NEB 1 amp RQID [facility] Administration Diazepam 2 mg 09/08/17 14:00 09/11/17 13:58 Valium - PO 2 mg TID [facility] Administration Heparin Sodium (Porcine) 5,000 unit 09/06/17 14:00 09/11/17 13:58 Heparin - SQ 5,000 unit TID [facility] Administration Clindamycin Phosphate 300 mg in 50 mls @ 100 mls/hr 09/10/17 10:00 09/11/17 10:15 Cleocin 300 Mg Premix Ivpb IVPB 100 mls/hr Q8H-IV [facility] Administration CEFTRIAXONE 1 G/50 ML PREMIX 50 mls @ 100 mls/hr 09/10/17 16:15 09/11/17 12: 53 Ceftriaxone 1 Gm-D5w Bag IVPB 100 mls/hr DAILY [facility] Administration Lacosamide 50 mg 09/08/17 22:00 09/11/17 11:16 Vimpat Liquid - GT 50 mg BID [facility] Administration Levetiracetam 1,700 mg 09/08/17 22:00 09/10/17 22:57 Keppra Oral Solution - GT 1,700 mg HS [facility] Administration Levetiracetam 1,500 mg 09/09/17 07:00 09/11/17 06:26 Keppra Oral Solution - GT 1,500 mg AM [facility] Administration Montelukast Sodium 5 mg 09/08/17 22:00 09/10/17 22:57 Singulair - GT 5 mg HS [facility] Administration Ondansetron HCl 4 mg 09/10/17 09:07 09/10/17 09:18 Zofran Injection IVPUSH 4 mg Q6H PRN Administration NAUSEA Phenobarbital 20 mg 09/08/17 12:15 09/11/17 10:16 Phenobarbital Liquid - GT 20 mg DAILY [facility] Administration Scopolamine HBr 1 patch 09/06/17 23:30 09/10/17 22:57 Transderm-Scop - TD 1 patch Q48H [facility] Administration ASSESSMENT/PLAN: 22M with a significant PMH of cortical blindness, cerebral palsy, spastic quadriplegia, seizure disorder, reactive airway disease, YAKELIN, GERD, HTN, strabismus, scoliosis, nonverbal presents to ED brought by ambulance from [facility] for temp recorded rectally as 97.3 and hypotension, admitted for suspected perforated viscous. # suspected perforated viscus: -no perforated viscous found on surgery. megacolon found, unclear etiology -IV fluids D/C'd -G-tube feeds restarted at rate of 20 ml/hr w/ water flush of 51 cc/hr as per agricultural education instructor -pain control with IV motrin and PRN morphine #fever -Tmax of 102.6 -per ID, continue clindamycin and ceftriaxone to cover for aspiration PNA. Repeat Bcx. -If temp does not resolve after 48 hours of abx, will consider CT abdomen/ pelvis for source of infection -Bcx: nothing x 72h -Ucx: no growth- final -CXR: mild atelectasis in left base without definitive infiltrate -f/u C. diff -APAP for fever #tachycardia -likely 2/2 pain and fever -pain control -continue to monitor #Seizure disorder -continue home keppra #Reactive airway disease -duonebs standing and PRN -continue scopolamine #F/E/N/ppx -no IV fluids -wnl -G-tubes -no GI ppx -heparin #Dispo -pending response to abx -hospital course discussed with Eron Pride on 09/09 -fax over discharge summary to [phone] -nurse to call Eron charge nurse for signout at [phone] Case discussed with attending, Dr. Ray. -Mirza Ritchie MD PGY1 Visit type - Emergency Visit Emergency Visit: Yes ED Registration Date: 09/05/17 Care time: The patient presented to the Emergency Department on the above date and was hospitalized for further evaluation of their emergent condition. - New Patient This patient is new to me today: No - Critical Care Critical Care patient: No
--- NOTE | 2017-09-11 19:15 | PN ---
Teaching Attending Note Name of Resident: Mirza Ritchie ATTENDING PHYSICIAN STATEMENT I saw and evaluated the patient. I reviewed the resident's note and discussed the case with the resident. I agree with the resident's findings and plan as documented. SUBJECTIVE: No events over night OBJECTIVE: NAd , comfortable in bed CV: RRR Lungs: course breath sounds b/l Abd: soft, clean dressing over mid line abd surgical wound which look clean with zelalem. nl BS , NT. PEG in Ext: nom pitting edema on feet ASSESSMENT AND PLAN: 22 y/o man with h/o MR, cerebral palsy, Seizure and other medical problems who presented with fever. 1- Fever, likely form aspiration PNA. on review of cxray today there appear to be an infiltrate at L heart boarder - cont clinda and ceftriaxone - blood cx sent - if continue spiking fever 48 hours after , might have to CT his abd 2- S/p laparotomy, no perforation seen. - cont conservative mgt - resume TF at a lower rate with free water and increase as tolerated 3- Seizure disorder, cont meds HLOC
[2017-09-11] MEDS: MONTELUKAST NA 5 MG TAB.CHEW GT SCH (21:21)
[2017-09-12] MEDS: CLINDAMYCIN 300 MG PREMIX IVPB 300 MG/50 ML BAG IVPB SCH ×3 (02:37→18:07)
[2017-09-12] MEDS ORDERED: PT OWN MED DRAWER 7, Y5N ONE ×3 (06:30→17:56)
[2017-09-12] MEDS: HEPARIN NA (PORCINE) 5,000 UNITS/ML 1ML VIAL SQ SCH ×3 (07:08→21:49)
[2017-09-12] MEDS: levETIRAcetam 500 MG/5 ML ORAL SOLUTION (UNIT-DOSE CUPS) GT SCH ×2 (07:08→21:51)
[2017-09-12] MEDS: diazePAM 2 MG TABLET PO SCH ×3 (07:08→21:49)
[2017-09-12] MEDS: ALBUTEROL SO4 2.5/IPRATROPIUM 0.5 INH SOL 3 ML VIAL.NEB. NEB SCH ×4 (08:15→21:25)
[2017-09-12 09:41] LABS: HEMATOCRIT 31.7 % (35.4-49); HEMOGLOBIN 10.5 GM/dL (11.7-16.9); MCH 32.5 pg (25.7-33.7); MCHC 33.1 g/dl (32.0-35.9); MEAN CELL VOLUME 98.3 fl (80-96); MEAN PLT VOLUME 7.2 fl (7.5-11.1); PLATELET COUNT 286 K/MM3 (134-434); RBC 3.22 M/mm3 (4.00-5.60); RDW 13.9 % (11.9-15.9); WHITE BLOOD COUNT 11.1 K/mm3 (4.0-10.0)
[2017-09-12] MEDS: CEFTRIAXONE 1 G/50 ML PREMIX 50 ML IVPB SCH (10:11)
[2017-09-12] MEDS: PHENobarbital 20 MG/5 ML UNIT-DOSE CUP GT SCH (10:11)
[2017-09-12] MEDS: Lacosamide 50 MG/5 ML ORAL SOLUTION UNIT CUPS GT SCH ×2 (10:13→21:49)
[2017-09-12] MEDS ORDERED: ACETAMINOPHEN 650 MG/20.3 ML ORAL SOLUTION (CUPS) PO ONE (11:15)
--- NOTE | 2017-09-12 12:48 | PN ---
Progress Note (short form) - Note Progress Note: Attending Surgeon POD #7 Tolerating TF's; on empiric antibiotics for spiking fevers awake VSS AF abdomen-soft; flat and globose; incision c/d/i; zelalem in place; o/w negatie labs noted IMP: stable PLAN: continue as per hospitalist team. Fermin oColey MD FACS
--- NOTE | 2017-09-12 14:56 | PN ---
Teaching Attending Note Name of Resident: Leonila Roberts ATTENDING PHYSICIAN STATEMENT I saw and evaluated the patient. I reviewed the resident's note and discussed the case with the resident. I agree with the resident's findings and plan as documented. SUBJECTIVE: no events . had fever OBJECTIVE: NAd , comfortable in bed CV: RRR Lungs: course breath sounds b/l Abd: soft, clean dressing over mid line abd surgical wound which look clean with zelalem. nl BS , NT. PEG in Ext: non pitting edema on feet ASSESSMENT AND PLAN: 22 y/o man with h/o MR, cerebral palsy, Seizure and other medical problems who presented with fever. 1- Fever, likely form aspiration PNA. - cont clinda and ceftriaxone - follow blood cx - check CT of abd to r/o any abd source of infection after a recent surgery as he cont to have fever 2- S/p laparotomy, no perforation seen. - cont conservative mgt - tolerated TF at a lower rate with free water. might increase rate tomorrow 3- Seizure disorder, cont meds HLOC
[2017-09-12] MEDS: MONTELUKAST NA 5 MG TAB.CHEW GT SCH (21:50)
[2017-09-12] MEDS: SCOPOLAMINE HYDROBROMIDE 1 PATCH PATCH.TD72 TD SCH (23:00)
--- NOTE | 2017-09-13 01:02 | PN ---
Physical Exam: SUBJECTIVE: Patient seen and examined at bed side on 09/12/2017 at bed side. Overnight, pt spiked fever T max 100.5 F. OBJECTIVE: Vital Signs Period Temp Pulse Resp BP Sys/Jay Pulse Ox Last 24 Hr 97.6 F-100.5 F 76-108 18-20 99-145/55-90 96-100 GENERAL: young male, lying in bed curled up, gurgling sounds, in NAD HEENT: EOMI, gurgling NECK: Trachea midline, full range of motion, supple. LUNGS: upper airway sounds, could not appreciate rales or rhonchi HEART: Regular rate and rhythm, S1, S2 without murmur, rub or gallop. ABDOMEN: minimal distention, normoactive BS, soft, bandages over incision site which is clean, dry and intact, non-tender to palpation EXTREMITIES: 2+ pulses, warm, well-perfused, no edema. NEUROLOGICAL: can't fully assess due to CP Laboratory Results - last 24 hr 09/12/17 09:24 WBC 11.1 H RBC 3.22 L Hgb 10.5 L Hct 31.7 L MCV 98.3 H MCH 32.5 MCHC 33.1 RDW 13.9 Plt Count 286 MPV 7.2 L Active Medications Generic Name Dose Route Start Last Admin Trade Name Lazaro PRN Reason Stop Dose Admin Acetaminophen 750 mg 09/11/17 07:00 09/11/17 13:46 Ofirmev Injection - IVPB 750 mg Q6H PRN Administration FEVER Albuterol/Ipratropium 1 amp 09/08/17 08:59 09/12/17 21:25 Duoneb - NEB 1 amp RQID [facility] Administration Diazepam 2 mg 09/08/17 14:00 09/12/17 21:49 Valium - PO 2 mg TID [facility] Administration Heparin Sodium (Porcine) 5,000 unit 09/06/17 14:00 09/12/17 21:49 Heparin - SQ 5,000 unit TID [facility] Administration Clindamycin Phosphate 300 mg in 50 mls @ 100 mls/hr 09/10/17 10:00 09/12/17 18:07 Cleocin 300 Mg Premix Ivpb IVPB 100 mls/hr Q8H-IV [facility] Administration CEFTRIAXONE 1 G/50 ML PREMIX 50 mls @ 100 mls/hr 09/10/17 16:15 09/12/17 10: 11 Ceftriaxone 1 Gm-D5w Bag IVPB 100 mls/hr DAILY [facility] Administration Lacosamide 50 mg 09/08/17 22:00 09/12/17 21:49 Vimpat Liquid - GT 50 mg BID [facility] Administration Levetiracetam 1,700 mg 09/08/17 22:00 09/12/17 21:51 Keppra Oral Solution - GT 1,700 mg HS [facility] Administration Levetiracetam 1,500 mg 09/09/17 07:00 09/12/17 07:08 Keppra Oral Solution - GT 1,500 mg AM [facility] Administration Montelukast Sodium 5 mg 09/08/17 22:00 09/12/17 21:50 Singulair - GT 5 mg HS [facility] Administration Ondansetron HCl 4 mg 09/10/17 09:07 09/10/17 09:18 Zofran Injection IVPUSH 4 mg Q6H PRN Administration NAUSEA Phenobarbital 20 mg 09/08/17 12:15 09/12/17 10:11 Phenobarbital Liquid - GT 20 mg DAILY [facility] Administration Scopolamine HBr 1 patch 09/06/17 23:30 09/12/17 23:00 Transderm-Scop - TD 1 patch Q48H [facility] Administration ASSESSMENT/PLAN: 22M with a significant PMH of cortical blindness, cerebral palsy, spastic quadriplegia, seizure disorder, reactive airway disease, YAKELIN, GERD, HTN, strabismus, scoliosis, nonverbal presents to ED brought by ambulance from [facility] for temp recorded rectally as 97.3 and hypotension, admitted for suspected perforated viscous. # Suspected perforated viscus: unclear etiology Repeat CT abdomen/Pelvis with IV contrast shows post surgical changes, no acute pathology Continue G-tube feeds Pain control # Fever likely due to aspiration PNA Tmax of 100.5 Clindamycin and ceftriaxone to cover for aspiration PNA C. diff pending #Seizure disorder-no seizure activity noted during hospitalization Continue home keppra # Reactive airway disease Duonebs standing and PRN Continue scopolamine #FEN Continue G tube feed Electrolytes WNL NPO # Prophylaxis For DVT: Heparin 5000 IU sq TID For GI: Not indicated # Dispo: Duration of stay unknown. Case discussed with Dr. Ray. Visit type - Emergency Visit Emergency Visit: Yes ED Registration Date: 09/05/17 Care time: The patient presented to the Emergency Department on the above date and was hospitalized for further evaluation of their emergent condition. - New Patient This patient is new to me today: Yes Date on this admission: 09/12/17 - Critical Care Critical Care patient: No
[2017-09-13] MEDS: CLINDAMYCIN 300 MG PREMIX IVPB 300 MG/50 ML BAG IVPB SCH ×2 (01:39→10:58)
[2017-09-13] MEDS: diazePAM 2 MG TABLET PO SCH ×3 (06:17→22:12)
[2017-09-13] MEDS: HEPARIN NA (PORCINE) 5,000 UNITS/ML 1ML VIAL SQ SCH ×3 (06:17→22:11)
[2017-09-13] MEDS: levETIRAcetam 500 MG/5 ML ORAL SOLUTION (UNIT-DOSE CUPS) GT SCH ×2 (06:19→22:13)
[2017-09-13] MEDS: ALBUTEROL SO4 2.5/IPRATROPIUM 0.5 INH SOL 3 ML VIAL.NEB. NEB SCH ×4 (08:53→21:30)
[2017-09-13 09:42] LABS: HEMATOCRIT 33.3 % (35.4-49); HEMOGLOBIN 10.9 GM/dL (11.7-16.9); MCH 32.3 pg (25.7-33.7); MCHC 32.6 g/dl (32.0-35.9); MEAN PLT VOLUME 8.3 fl (7.5-11.1); PLATELET COUNT 312 K/MM3 (134-434); RBC 3.37 M/mm3 (4.00-5.60); WHITE BLOOD COUNT 14.3 K/mm3 (4.0-10.0)
[2017-09-13] MEDS ORDERED: PT OWN MED DRAWER 7, Y5N ONE (10:35)
[2017-09-13] MEDS: CEFTRIAXONE 1 G/50 ML PREMIX 50 ML IVPB SCH (10:38)
[2017-09-13] MEDS: PHENobarbital 20 MG/5 ML UNIT-DOSE CUP GT SCH (10:58)
[2017-09-13] MEDS: Lacosamide 50 MG/5 ML ORAL SOLUTION UNIT CUPS GT SCH ×2 (10:59→22:12)
[2017-09-13] MEDS ORDERED: ACETAMINOPHEN 650 MG/20.3 ML ORAL SOLUTION (CUPS) PO PRN (15:09)
--- NOTE | 2017-09-13 15:15 | PN ---
Progress Note (short form) - Note Progress Note: Subjective: no events . still has some low grade fever Objective: Vital Signs: Last Vital Signs Temp Pulse Resp BP Pulse Ox 98.2 F 71 17 98/54 100 09/13/17 11:00 09/13/17 11:00 09/13/17 11:00 09/13/17 11:00 09/13/17 09:00 Laboratory Results - last 24 hr 09/13/17 09:00 WBC 14.3 H RBC 3.37 L Hgb 10.9 L Hct 33.3 L MCV 99.0 H MCH 32.3 MCHC 32.6 RDW 14.0 Plt Count 312 MPV 8.3 D Physical Exam: NAd , comfortable in bed CV: RRR Lungs: course breath sounds b/l Abd: soft, clean dressing over mid line abd surgical wound which look clean with zelalem. nl BS , NT. PEG in Ext: non pitting edema on feet ASSESSMENT AND PLAN: 22 y/o man with h/o MR, cerebral palsy, Seizure and other medical problems who presented with fever. 1- Fever, likely form aspiration PNA. due to persistent fever Abd /pelvis was Ct'd and no fluid collection was found. infiltrates i b/l lungs were seen - cont clinda and ceftriaxone - follow blood cx - will check US to r/o DVT as cause of unexplained fever 2- S/p laparotomy, no perforation seen. - cont conservative mgt - tolerated TF at a lower rate with free water. will increase rate 3- Seizure disorder, cont meds HLOC Visit type - Emergency Visit Emergency Visit: Yes ED Registration Date: 09/05/17 Care time: The patient presented to the Emergency Department on the above date and was hospitalized for further evaluation of their emergent condition. - New Patient This patient is new to me today: No - Critical Care Critical Care patient: No
[2017-09-13] MEDS: ACETAMINOPHEN 650 MG/20.3 ML ORAL SOLUTION (CUPS) GT PRN (15:35)
[2017-09-13] MEDS: METRONIDAZOLE PREMIXED IVPB 250 MG/50 ML MG IVPB SCH (19:19)
[2017-09-13] MEDS: MONTELUKAST NA 5 MG TAB.CHEW GT SCH (22:13)
[2017-09-14] MEDS: METRONIDAZOLE PREMIXED IVPB 250 MG/50 ML MG IVPB SCH ×3 (01:48→17:18)
[2017-09-14] MEDS: ACETAMINOPHEN 650 MG/20.3 ML ORAL SOLUTION (CUPS) GT PRN ×2 (06:12→22:21)
[2017-09-14] MEDS: diazePAM 2 MG TABLET PO SCH ×3 (06:12→21:43)
[2017-09-14] MEDS: HEPARIN NA (PORCINE) 5,000 UNITS/ML 1ML VIAL SQ SCH ×3 (06:12→21:43)
[2017-09-14] MEDS: levETIRAcetam 500 MG/5 ML ORAL SOLUTION (UNIT-DOSE CUPS) GT SCH ×2 (06:13→22:03)
[2017-09-14 07:58] LABS: BASO % 0.8 % (0-2.0); EOS % 2.6 % (0-4.5); HEMATOCRIT 32.9 % (35.4-49); HEMOGLOBIN 10.8 GM/dL (11.7-16.9); LYMPH % 21.7 % (8-40); MCH 32.6 pg (25.7-33.7); MCHC 32.8 g/dl (32.0-35.9); MEAN CELL VOLUME 99.2 fl (80-96); MEAN PLT VOLUME 8.1 fl (7.5-11.1); MONO % 4.6 % (3.8-10.2); NEUT % 70.3 % (42.8-82.8); PLATELET COUNT 358 K/MM3 (134-434); RBC 3.31 M/mm3 (4.00-5.60); RDW 14.4 % (11.9-15.9); WHITE BLOOD COUNT 15.6 K/mm3 (4.0-10.0)
[2017-09-14 08:30] LABS: ANION GAP 12 (8-16); BLOOD UREA NITROGEN 4 mg/dL (7-18); CALCIUM 8.3 mg/dL (8.5-10.1); CHLORIDE 105 mmol/L (98-107); CO2 24 mmol/L (21-32); GLUCOSE,RANDOM 116 mg/dL (74-106); SODIUM 141 mmol/L (136-145)
[2017-09-14 08:31] LABS: CREATININE 0.4 mg/dL (0.7-1.3)
[2017-09-14] MEDS: ALBUTEROL SO4 2.5/IPRATROPIUM 0.5 INH SOL 3 ML VIAL.NEB. NEB SCH ×5 (08:50→20:15)
[2017-09-14 08:51] LABS: POTASSIUM 3.3 mmol/L (3.5-5.1)
[2017-09-14] MEDS: PHENobarbital 20 MG/5 ML UNIT-DOSE CUP GT SCH (09:56)
[2017-09-14] MEDS: Lacosamide 50 MG/5 ML ORAL SOLUTION UNIT CUPS GT SCH ×2 (09:56→21:44)
[2017-09-14] MEDS: CEFTRIAXONE 1 G/50 ML PREMIX 50 ML IVPB SCH (09:57)
--- NOTE | 2017-09-14 10:31 | EKG ---
Test Reason : Blood Pressure : / mmHG Vent. Rate : 114 BPM Atrial Rate : 114 BPM P-R Int : 150 ms QRS Dur : 094 ms QT Int : 322 ms P-R-T Axes : 017 -05 003 degrees QTc Int : 443 ms SINUS TACHYCARDIA MODERATE VOLTAGE CRITERIA FOR LVH, MAY BE NORMAL VARIANT INFERIOR INFARCT , AGE UNDETERMINED ABNORMAL ECG WHEN COMPARED WITH ECG OF 13-SEP-2017 19:34, NO SIGNIFICANT CHANGE WAS FOUND Confirmed by CHARLES IGNACIO MD ([id number]) on 09/14/2017 10:31:16 AM Referred By: Confirmed By:CHARLES IGNACIO MD
[2017-09-14] MEDS ORDERED: POTASSIUM CHLORIDE ORAL LIQUID 20 MEQ/15 ML PEG ONE (13:13)
[2017-09-14] MEDS ORDERED: PT OWN MED DRAWER 7, Y5N ONE (16:15)
--- NOTE | 2017-09-14 16:33 | PN ---
Teaching Attending Note Name of Resident: Nasir Dias ATTENDING PHYSICIAN STATEMENT I saw and evaluated the patient. I reviewed the resident's note and discussed the case with the resident. I agree with the resident's findings and plan as documented. SUBJECTIVE: NO events over night OBJECTIVE: NAd, comfortable in bed CV: RRR Lungs: course breath sounds b/l Abd: soft, clean dressing over mid line abd surgical wound which look clean with zelalem. nl BS , NT. PEG in Ext: non pitting edema on feet ASSESSMENT AND PLAN: 22 y/o man with h/o MR, cerebral palsy, Seizure and other medical problems who presented with fever. 1- Fever, likely form aspiration PNA. - CT of abd with no abscess - US of legs with no DVT - + c diff Ag , despite no diarrhea , placed pt on flagyl instead of clinda due to persistent fever on Abx - cont ceftriaxone fro asp pna 2- S/p laparotomy, no perforation seen. - cont conservative mgt - tolerated TF at 30 cc/hr will increase tomorrow 3- Seizure disorder, cont meds HLOC
--- NOTE | 2017-09-14 18:13 | PN ---
Physical Exam: SUBJECTIVE: Non-verbal with severe mental retardation at baseline. Per nurse, he tolerated feeds overnight, urinated, elevated temp this AM but resolved after Tylenol. No acute events overnight. OBJECTIVE: Vital Signs Period Temp Pulse Resp BP Sys/Jay Pulse Ox Last 24 Hr 97.9 F-100.0 F 98-123 18-24 108-137/75-88 98-100 GENERAL: Non-verbal, contracted, grimace when moved, in NAD EYES: sclera anicteric, conjunctiva clear. LUNGS: Slight bilateral wheezes anteriorly HEART: RRR, S1, S2 without murmur, rub or gallop. ABDOMEN: Soft, nondistended, G tube site has small brownish discharge with 3- 4cm radius erythematous and lincheized skin surrounding the insertion point; vertical surgical scar with ~20 clips, no erythema or active drainage seen. EXTREMITIES: 2+ pulses, warm, well-perfused, no edema. CBCD WBC 15.6 K/mm3 (4.0-10.0) H 09/14/17 06:00 RBC 3.31 M/mm3 (4.00-5.60) L 09/14/17 06:00 Hgb 10.8 GM/dL (11.7-16.9) L 09/14/17 06:00 Hct 32.9 % (35.4-49) L 09/14/17 06:00 MCV 99.2 fl (80-96) H 09/14/17 06:00 MCHC 32.8 g/dl (32.0-35.9) 09/14/17 06:00 RDW 14.4 % (11.9-15.9) 09/14/17 06:00 Plt Count 358 K/MM3 (134-434) 09/14/17 06:00 MPV 8.1 fl (7.5-11.1) 09/14/17 06:00 CMP Sodium 141 mmol/L (136-145) 09/14/17 06:00 Potassium 3.3 mmol/L (3.5-5.1) L D 09/14/17 06:00 Chloride 105 mmol/L (98-107) 09/14/17 06:00 Carbon Dioxide 24 mmol/L (21-32) 09/14/17 06:00 Anion Gap 12 (8-16) 09/14/17 06:00 BUN 4 mg/dL (7-18) L D 09/14/17 06:00 Creatinine 0.4 mg/dL (0.7-1.3) L 09/14/17 06:00 Creat Clearance w eGFR > 60 (>60) 09/09/17 06:30 Calcium 8.3 mg/dL (8.5-10.1) L 09/14/17 06:00 Total Bilirubin 0.8 mg/dL (0.2-1.0) 09/09/17 06:30 AST 26 U/L (15-37) 09/09/17 06:30 ALT 40 U/L (12-78) 09/09/17 06:30 Alkaline Phosphatase 133 U/L (45-117) H 09/09/17 06:30 Total Protein 7.5 g/dl (6.4-8.2) 09/09/17 06:30 Albumin 3.5 g/dl (3.4-5.0) 09/09/17 06:30 Active Medications Generic Name Dose Route Start Last Admin Trade Name Freq PRN Reason Stop Dose Admin Acetaminophen 750 mg 09/11/17 07:00 09/11/17 13:46 Ofirmev Injection - IVPB 750 mg Q6H PRN Administration FEVER Acetaminophen 650 mg 09/13/17 15:27 09/14/17 06:12 Tylenol Oral Solution - GT 650 mg Q6H PRN Administration FEVER Albuterol/Ipratropium 1 amp 09/08/17 08:59 09/14/17 15:52 Duoneb - NEB Not Given RQID AUNG Diazepam 2 mg 09/08/17 14:00 09/14/17 14:02 Valium - PO 2 mg TID AUNG Administration Heparin Sodium (Porcine) 5,000 unit 09/06/17 14:00 09/14/17 14:02 Heparin - SQ 5,000 unit TID AUNG Administration CEFTRIAXONE 1 G/50 ML PREMIX 50 mls @ 100 mls/hr 09/10/17 16:15 09/14/17 09: 57 Ceftriaxone 1 Gm-D5w Bag IVPB 100 mls/hr DAILY AUNG Administration Metronidazole 250 mg in 50 mls @ 50 mls/hr 09/13/17 18:00 09/14/17 17:18 Flagyl 250mg Premixed Ivpb - IVPB 50 mls/hr Q8H-IV AUNG Administration Lacosamide 50 mg 09/08/17 22:00 09/14/17 09:56 Vimpat Liquid - GT 50 mg BID AUNG Administration Levetiracetam 1,700 mg 09/08/17 22:00 09/13/17 22:13 Keppra Oral Solution - GT 1,700 mg HS AUNG Administration Levetiracetam 1,500 mg 09/09/17 07:00 09/14/17 06:13 Keppra Oral Solution - GT 1,500 mg AM AUNG Administration Montelukast Sodium 5 mg 09/08/17 22:00 09/13/17 22:13 Singulair - GT 5 mg HS AUNG Administration Multi-Ingredient Ointment 1 applic 09/14/17 18:00 Zinc Oxide TP BID AUNG Ondansetron HCl 4 mg 09/10/17 09:07 09/10/17 09:18 Zofran Injection IVPUSH 4 mg Q6H PRN Administration NAUSEA Phenobarbital 20 mg 09/08/17 12:15 09/14/17 09:56 Phenobarbital Liquid - GT 20 mg DAILY AUNG Administration Scopolamine HBr 1 patch 09/06/17 23:30 09/12/17 23:00 Transderm-Scop - TD 1 patch Q48H AUNG Administration ASSESSMENT/PLAN: 22 yo M [place] resident h/o cortical blindness, cerebral palsy, spastic quadriplegia, seizure disorder, reactive airway disease, YAKELIN, GERD, HTN, strabismus, scoliosis, nonverbal admitted to med-surg initially for suspected perforated viscus and later developed aspiration PNA. Sepsis - Likely 2/2 aspiation PNA, cannot r/o c. diff * WBC trending up * c. diff ag + but toxin - but will retreat regardless considering persistent elevated temp - CT abd -ve for post-op wound abscess - Cont. rocephin (day 5) and flagyl (day 2) - Cont. tube feed with free water Suspected perforated viscus - s/p exp lap, negative for perf - Cont. local surgical wound care Hypokalemia - Replete K+ with KCl via G tube - Cont. to monitor Seizure disorder - Been seizure free during hospitalization - Continue home keppra Reactive airway disease - Duonebs standing and PRN - Continue scopolamine FEN - Continue G tube feed, will increase rate tomorrow - Monitor K+ Prophylaxis - DVT: Heparin 5000 IU sq TID Dispo - Cont. to monitor on the floor for persistent elevated temps and WBC Visit type - Emergency Visit Emergency Visit: No - New Patient This patient is new to me today: Yes Date on this admission: 09/14/17 - Critical Care Critical Care patient: No
[2017-09-14] MEDS: ZINC OXIDE 20% TOPICAL OINTMENT 30 GM TUBE TP SCH ×2 (21:42)
[2017-09-14] MEDS: MONTELUKAST NA 5 MG TAB.CHEW GT SCH (22:03)
[2017-09-14] MEDS: SCOPOLAMINE HYDROBROMIDE 1 PATCH PATCH.TD72 TD SCH (22:40)
[2017-09-15] MEDS: METRONIDAZOLE PREMIXED IVPB 250 MG/50 ML MG IVPB SCH ×3 (01:28→17:08)
--- NOTE | 2017-09-15 03:22 | PN ---
Physical Exam: SUBJECTIVE: Patient seen and examined at bed side, fever 100.4 rectally and 100.5 axillary recorded over night, still have some excoriation around G tube. OBJECTIVE: Vital Signs Period Temp Pulse Resp BP Sys/Jay Pulse Ox Last 24 Hr 99.0 F-100.4 F 100-112 18-24 117-128/75-89 97-100 GENERAL: Non-verbal, contracted, grimace when moved, in NAD EYES: sclera anicteric, conjunctiva clear. LUNGS: Slight bilateral wheezes anteriorly HEART: RRR, S1, S2 without murmur, rub or gallop. ABDOMEN: Soft, nondistended, G tube site has small brownish discharge with 3- 4cm radius erythematous and lincheized skin surrounding the insertion point; vertical surgical scar with ~20 clips, no erythema or active drainage seen. EXTREMITIES: 2+ pulses, warm, well-perfused, no edema. Laboratory Results - last 24 hr 09/14/17 09/14/17 06:00 06:00 WBC 15.6 H RBC 3.31 L Hgb 10.8 L Hct 32.9 L MCV 99.2 H MCH 32.6 MCHC 32.8 RDW 14.4 Plt Count 358 MPV 8.1 Neutrophils % 70.3 Lymphocytes % 21.7 Monocytes % 4.6 Eosinophils % 2.6 Basophils % 0.8 Sodium 141 Potassium 3.3 L D Chloride 105 Carbon Dioxide 24 Anion Gap 12 BUN 4 L D Creatinine 0.4 L Random Glucose 116 H D Calcium 8.3 L Active Medications Generic Name Dose Route Start Last Admin Trade Name Freq PRN Reason Stop Dose Admin Acetaminophen 750 mg 09/11/17 07:00 09/11/17 13:46 Ofirmev Injection - IVPB 750 mg Q6H PRN Administration FEVER Acetaminophen 650 mg 09/13/17 15:27 09/14/17 22:21 Tylenol Oral Solution - GT 650 mg Q6H PRN Administration FEVER Albuterol/Ipratropium 1 amp 09/08/17 08:59 09/14/17 20:15 Duoneb - NEB 1 amp RQID AUNG Administration Diazepam 2 mg 09/08/17 14:00 09/14/17 21:43 Valium - PO 2 mg TID AUNG Administration Heparin Sodium (Porcine) 5,000 unit 09/06/17 14:00 09/14/17 21:43 Heparin - SQ 5,000 unit TID AUNG Administration CEFTRIAXONE 1 G/50 ML PREMIX 50 mls @ 100 mls/hr 09/10/17 16:15 09/14/17 09: 57 Ceftriaxone 1 Gm-D5w Bag IVPB 100 mls/hr DAILY AUNG Administration Metronidazole 250 mg in 50 mls @ 50 mls/hr 09/13/17 18:00 09/15/17 01:28 Flagyl 250mg Premixed Ivpb - IVPB 50 mls/hr Q8H-IV AUNG Administration Lacosamide 50 mg 09/08/17 22:00 09/14/17 21:44 Vimpat Liquid - GT 50 mg BID AUNG Administration Levetiracetam 1,700 mg 09/08/17 22:00 09/14/17 22:03 Keppra Oral Solution - GT 1,700 mg HS AUNG Administration Levetiracetam 1,500 mg 09/09/17 07:00 09/14/17 06:13 Keppra Oral Solution - GT 1,500 mg AM AUNG Administration Montelukast Sodium 5 mg 09/08/17 22:00 09/14/17 22:03 Singulair - GT 5 mg HS AUNG Administration Multi-Ingredient Ointment 1 applic 09/14/17 18:00 09/14/17 21:42 Zinc Oxide TP 1 applic BID AUNG Administration Ondansetron HCl 4 mg 09/10/17 09:07 09/10/17 09:18 Zofran Injection IVPUSH 4 mg Q6H PRN Administration NAUSEA Phenobarbital 20 mg 09/08/17 12:15 09/14/17 09:56 Phenobarbital Liquid - GT 20 mg DAILY AUNG Administration Scopolamine HBr 1 patch 09/06/17 23:30 09/14/17 22:40 Transderm-Scop - TD 1 patch Q48H AUNG Administration CBC, BMP 09/15/17 05:35 09/15/17 05:35 ASSESSMENT/PLAN: 22 yo M [place] resident h/o cortical blindness, cerebral palsy, spastic quadriplegia, seizure disorder, reactive airway disease, YAKELIN, GERD, HTN, strabismus, scoliosis, nonverbal admitted to med-surg initially for suspected perforated viscus and later developed aspiration PNA. Sepsis - Likely 2/2 aspiation PNA, cannot r/o c. diff * WBC trending up * c. diff ag + but toxin - but will retreat regardless considering persistent * Start Vanco 125 mg Q6 hr * ID on the board elevated temp - CT abd -ve for post-op wound abscess - Cont. rocephin (day 6) and flagyl (day 3) - Cont. tube feed with free water GI Tube possible leaking * evaluated by the tube is functionng very well * G tube is surgical placed, if need to replaced need to contact surgery Hypokalemia - Replete K+ with KCl via G tube - Cont. to monitor Seizure disorder - Been seizure free during hospitalization - Continue home keppra Reactive airway disease - Duonebs standing and PRN - Continue scopolamine FEN - Continue G tube feed, will increase rate tomorrow - Monitor K+ Prophylaxis - DVT: Heparin 5000 IU sq TID Dispo - Cont. to monitor on the floor for persistent elevated temps and WBC Visit type - Emergency Visit Emergency Visit: Yes ED Registration Date: 09/05/17 Care time: The patient presented to the Emergency Department on the above date and was hospitalized for further evaluation of their emergent condition. - New Patient This patient is new to me today: Yes Date on this admission: 09/15/17 - Critical Care Critical Care patient: No
[2017-09-15] MEDS ORDERED: PT OWN MED DRAWER 7, Y5N ONE ×4 (05:50→21:32)
[2017-09-15] MEDS: HEPARIN NA (PORCINE) 5,000 UNITS/ML 1ML VIAL SQ SCH ×3 (05:52→21:44)
[2017-09-15] MEDS: diazePAM 2 MG TABLET PO SCH ×2 (05:53→21:44)
[2017-09-15] MEDS: levETIRAcetam 500 MG/5 ML ORAL SOLUTION (UNIT-DOSE CUPS) GT SCH ×2 (06:04→21:43)
[2017-09-15] MEDS: ALBUTEROL SO4 2.5/IPRATROPIUM 0.5 INH SOL 3 ML VIAL.NEB. NEB SCH ×4 (07:30→20:42)
[2017-09-15 07:49] LABS: HEMATOCRIT 36.1 % (35.4-49); HEMOGLOBIN 11.7 GM/dL (11.7-16.9); MCH 32.3 pg (25.7-33.7); MCHC 32.4 g/dl (32.0-35.9); MEAN CELL VOLUME 99.9 fl (80-96); MEAN PLT VOLUME 8.4 fl (7.5-11.1); PLATELET COUNT 439 K/MM3 (134-434); RBC 3.61 M/mm3 (4.00-5.60); RDW 14.5 % (11.9-15.9); WHITE BLOOD COUNT 20.6 K/mm3 (4.0-10.0)
[2017-09-15 08:16] LABS: ANION GAP 14 (8-16); BLOOD UREA NITROGEN 5 mg/dL (7-18); CALCIUM 8.9 mg/dL (8.5-10.1); CHLORIDE 105 mmol/L (98-107); CO2 21 mmol/L (21-32); CREATININE 0.4 mg/dL (0.7-1.3); GLUCOSE,RANDOM 87 mg/dL (74-106); MAGNESIUM 2.2 mg/dL (1.8-2.4); POTASSIUM 3.8 mmol/L (3.5-5.1); SODIUM 140 mmol/L (136-145)
[2017-09-15] MEDS: Lacosamide 50 MG/5 ML ORAL SOLUTION UNIT CUPS GT SCH ×2 (10:18→21:42)
[2017-09-15] MEDS: PHENobarbital 20 MG/5 ML UNIT-DOSE CUP GT SCH (10:18)
[2017-09-15] MEDS: CEFTRIAXONE 1 G/50 ML PREMIX 50 ML IVPB SCH (10:19)
[2017-09-15] MEDS: ZINC OXIDE 20% TOPICAL OINTMENT 30 GM TUBE TP SCH ×2 (13:19→21:44)
--- NOTE | 2017-09-15 16:24 | CON.GI ---
Consult Consult Specialty:: GI Reason for Consultation:: PEG leaking - History of Present Illness History of Present Illness: Chart reviewed. Events noted. Covering nurse reports no issues with PEG today. Specifically, no leakage per track while administering liquids via PEG. A recent CT a/p, although with artifacts, reported no PEG-related abnormal findings. The PEG appears to be surgically placed. Erythematous skin around otherwise normal appearing track. PEG tubing is intact - History Source History Provided By: Medical Record, Caregiver Limitations to Obtaining History: Clinical Condition - Alcohol/Substance Use Hx Alcohol Use: No - Smoking History Smoking history: Never smoked Have you smoked in the past 12 months: No Home Medications - Allergies Allergies/Adverse Reactions: Allergies Allergy/AdvReac Type Severity Reaction Status Date / Time chloral hydrate Allergy Verified 09/04/17 19:32 piperacillin sodium Allergy Verified 09/04/17 19:32 [From Zosyn] tazobactam sodium Allergy Verified 09/04/17 19:32 [From Zosyn] - Home Medications Home Medications: Ambulatory Orders Albuterol 0.083% Nebulizer Martha [Ventolin 0.083% Nebulizer Soln -] 1 neb NEB QID PRN 12/03/16 Clobetasol Propionate/Emoll [Clobetasol Emollient 0.05% Crm] 15 gm TP DAILY 01/14 Diazepam 2 mg PO TID 12/03/16 Gabapentin 400 mg PO BID 12/03/16 Glycopyrrolate in Water/Pf [Glycopyrrolate 1 mg/5 ml-Water] 1 mg IV BID Lacosamide [Vimpat -] 50 mg PO BID 12/03/16 Montelukast Na [Singulair -] 5 mg PO HS 12/03/16 Phenobarbital 20 mg GT DAILY 12/03/16 Scopolamine [Transderm-Scop] 1 each TD Q2D 12/03/16 Albuterol 2.5/Ipratropium 0.5 [Duoneb -] 1 neb IH QID 09/04/17 Lactulose [Cephulac -] 30 ml GT DAILY 09/04/17 Levetiracetam [Keppra Oral Solution -] 1,500 mg GT DAILY 09/04/17 Levetiracetam [Keppra Oral Solution -] 1,700 mg GT HS 09/04/17 Review of Systems Unable to obtain ROS, reason: pts condition Physical Exam-GI Vital Signs: Vital Signs Temperature 98.6 F 09/15/17 13:41 Pulse Rate 116 H 09/15/17 13:41 Respiratory Rate 20 09/15/17 13:41 Blood Pressure 116/84 09/15/17 13:41 O2 Sat by Pulse Oximetry (%) 96 09/15/17 09:00 Constitutional: Yes: No Distress ...Palpate: Yes: Other (mid abd. fresh scar, dressing, LLQ PEG secured via stiches and appears as per hpi) Labs: CBC, BMP 09/15/17 05:35 09/15/17 05:35 INR, PTT INR 1.73 (0.82-1.09) H 09/04/17 20:15 Imaging - Results Cat Scan: Report Reviewed (09/12/16) Problem List - Problems (1) Fever Code(s): R50.9 - FEVER, UNSPECIFIED (2) S/P exploratory laparotomy Code(s): Z98.890 - OTHER SPECIFIED POSTPROCEDURAL STATES Assessment/Plan The fever and leukocytosis are unlikely PEG-related. Gastrografin study via PEG can asses PEG position if there is concern for dislodgement. alternatively, a CT abdomen can evaluate for the same and for abdominal wall abscesses. Given the recent imaging studies, ex-lap and normally functioning PEG today, I would hold off on any additional work up and look elsewhere for the source of fever and elevated WBC.
[2017-09-15] MEDS: VANCOMYCIN 250 MG/5 ML ORAL SOLUTION PEG SCH (17:42)
[2017-09-15] MEDS ORDERED: VANCOMYCIN 250 MG/5 ML ORAL SOLUTION PO SCH (18:00)
[2017-09-15] MEDS: ACETAMINOPHEN 650 MG/20.3 ML ORAL SOLUTION (CUPS) GT PRN (18:04)
--- NOTE | 2017-09-15 20:11 | PN ---
Teaching Attending Note Name of Resident: Marshall Bhakta ATTENDING PHYSICIAN STATEMENT I saw and evaluated the patient. I reviewed the resident's note and discussed the case with the resident. I agree with the resident's findings and plan as documented. SUBJECTIVE: no events over night OBJECTIVE: NAd, comfortable in bed CV: RRR Lungs: course breath sounds b/l Abd: soft, clean dressing over mid line abd surgical wound which look clean with zelalem. nl BS , NT. PEG in with zinc oxide around site Ext: non pitting edema on feet ASSESSMENT AND PLAN: 22 y/o man with h/o MR, cerebral palsy, Seizure and other medical problems who presented with fever. 1- Fever, likely form aspiration PNA. - CT of abd with no abscess - US of legs with no DVT - + c diff Ag , despite no diarrhea , will treat as leukocytosis is worse even with treating PNA , -change flagyl to po vanco - cont ceftriaxone for PNA , today day 6. will d/w ID about duration 2- S/p laparotomy, no perforation seen. - cont conservative mgt - tolerated TF at 30 cc/hr will increase tomorrow to 40 3- Seizure disorder, cont meds HLOC
[2017-09-15] MEDS: MONTELUKAST NA 5 MG TAB.CHEW GT SCH (21:44)
[2017-09-16] MEDS ORDERED: PT OWN MED DRAWER 7, Y5N ONE ×5 (01:02→23:51)
[2017-09-16] MEDS: VANCOMYCIN 250 MG/5 ML ORAL SOLUTION PEG SCH ×4 (01:30→17:16)
[2017-09-16] MEDS: METRONIDAZOLE PREMIXED IVPB 250 MG/50 ML MG IVPB SCH ×3 (01:30→17:16)
[2017-09-16] MEDS: HEPARIN NA (PORCINE) 5,000 UNITS/ML 1ML VIAL SQ SCH ×3 (05:13→22:13)
[2017-09-16] MEDS: diazePAM 2 MG TABLET PO SCH ×3 (05:13→22:14)
[2017-09-16] MEDS: ACETAMINOPHEN 650 MG/20.3 ML ORAL SOLUTION (CUPS) GT PRN ×3 (05:22→22:13)
--- NOTE | 2017-09-16 05:36 | PN ---
Physical Exam: SUBJECTIVE: Patient seen and examined at bedside. had a fever of 100.5 last night , Tylenol 650 was given. G tube still leaking , surrounded with erythema , wound with stitches seems clean . wbc improved. OBJECTIVE: Vital Signs Period Temp Pulse Resp BP Sys/Jay Pulse Ox Last 24 Hr 98.5 F-100.5 F 87-128 18-20 92-147/59-97 96-98 GENERAL: Non-verbal, contracted, grimace when moved, in NAD EYES: sclera anicteric, conjunctiva clear. LUNGS: Slight bilateral wheezes anteriorly HEART: RRR, S1, S2 without murmur, rub or gallop. ABDOMEN: Soft, nondistended, G tube site has small brownish discharge with 3- 4cm radius erythematous and lincheized skin surrounding the insertion point; vertical surgical scar with ~20 clips, no erythema or active drainage seen. EXTREMITIES: 2+ pulses, warm, well-perfused, no edema. Laboratory Results - last 24 hr 09/15/17 09/15/17 05:35 05:35 WBC 20.6 H D RBC 3.61 L Hgb 11.7 Hct 36.1 MCV 99.9 H MCH 32.3 MCHC 32.4 RDW 14.5 Plt Count 439 H D MPV 8.4 Sodium 140 Potassium 3.8 Chloride 105 Carbon Dioxide 21 Anion Gap 14 BUN 5 L D Creatinine 0.4 L Random Glucose 87 D Calcium 8.9 Phosphorus 4.0 D Magnesium 2.2 Active Medications Generic Name Dose Route Start Last Admin Trade Name Freq PRN Reason Stop Dose Admin Acetaminophen 750 mg 09/11/17 07:00 09/11/17 13:46 Ofirmev Injection - IVPB 750 mg Q6H PRN Administration FEVER Acetaminophen 650 mg 09/13/17 15:27 09/16/17 05:22 Tylenol Oral Solution - GT 650 mg Q6H PRN Administration FEVER Albuterol/Ipratropium 1 amp 09/08/17 08:59 09/15/17 20:42 Duoneb - NEB 1 amp RQID AUNG Administration Diazepam 2 mg 09/15/17 22:00 09/16/17 05:13 Valium - PO 2 mg TID AUNG Administration Heparin Sodium (Porcine) 5,000 unit 09/06/17 14:00 09/16/17 05:13 Heparin - SQ 5,000 unit TID AUNG Administration CEFTRIAXONE 1 G/50 ML PREMIX 50 mls @ 100 mls/hr 09/10/17 16:15 09/15/17 10: 19 Ceftriaxone 1 Gm-D5w Bag IVPB 100 mls/hr DAILY AUNG Administration Metronidazole 250 mg in 50 mls @ 50 mls/hr 09/13/17 18:00 09/16/17 01:30 Flagyl 250mg Premixed Ivpb - IVPB 50 mls/hr Q8H-IV AUNG Administration Lacosamide 50 mg 09/15/17 22:00 09/15/17 21:42 Vimpat Liquid - GT 50 mg BID AUNG Administration Levetiracetam 1,700 mg 09/08/17 22:00 09/15/17 21:43 Keppra Oral Solution - GT 1,700 mg HS AUNG Administration Levetiracetam 1,500 mg 09/09/17 07:00 09/15/17 06:04 Keppra Oral Solution - GT 1,500 mg AM AUNG Administration Montelukast Sodium 5 mg 09/08/17 22:00 09/15/17 21:44 Singulair - GT 5 mg HS AUNG Administration Multi-Ingredient Ointment 1 applic 09/14/17 18:00 09/15/17 21:44 Zinc Oxide TP 1 applic BID AUNG Administration Ondansetron HCl 4 mg 09/10/17 09:07 09/10/17 09:18 Zofran Injection IVPUSH 4 mg Q6H PRN Administration NAUSEA Phenobarbital 20 mg 09/16/17 10:00 Phenobarbital Liquid - GT DAILY AUNG Scopolamine HBr 1 patch 09/06/17 23:30 09/14/17 22:40 Transderm-Scop - TD 1 patch Q48H AUNG Administration Vancomycin HCl 125 mg 09/15/17 18:00 09/16/17 05:13 Vancomycin Oral Solution PEG 125 mg Q6HPO AUNG Administration CBC, BMP 09/16/17 09:06 09/16/17 09:06 ASSESSMENT/PLAN: 22 yo M [place] resident h/o cortical blindness, cerebral palsy, spastic quadriplegia, seizure disorder, reactive airway disease, YAKELIN, GERD, HTN, strabismus, scoliosis, nonverbal admitted to med-surg initially for suspected perforated viscus and later developed aspiration PNA. Sepsis - Likely 2/2 aspiation PNA, vs c. diff * WBC trending down 14.8 * c. diff ag + but toxin - but will retreat regardless considering persistent * Start Vanco 125 mg Q6 hr , complete 14 days course per ID (day 2 ) * ID on the board elevated temp - CT abd negative for post-op wound abscess - Cont. rocephin (day 7) last dose. cont flagyl day 4 - Cont. tube feed with free water GI Tube possible leaking * evaluated by the tube is functioning very well * G tube is surgical placed,spoke with surgery team for replacing * G tube rad evaluation ordered spoke with surgery team to evaluate the G tube . Hypokalemia, resolved - Replete K+ with KCl via G tube. today K 3.5 - Cont. to monitor Seizure disorder - Been seizure free during hospitalization - Continue home keppra Reactive airway disease - Duonebs standing and PRN - Continue scopolamine Anemia, chronic * H/H stable but low 11.2/33.7 * Likely 2/2 low intake vs chronic disease * monitor H/H FEN - Continue G tube feed, will increase rate today to 40 - Monitor K+ Prophylaxis - DVT: Heparin 5000 IU sq TID Dispo - Cont. to monitor on the floor for persistent elevated temps and WBC Visit type - Emergency Visit Emergency Visit: Yes ED Registration Date: 09/05/17 Care time: The patient presented to the Emergency Department on the above date and was hospitalized for further evaluation of their emergent condition. - New Patient This patient is new to me today: No - Critical Care Critical Care patient: No - Discharge Referral Referred to [facility] Med P.C[facility] No
[2017-09-16] MEDS: levETIRAcetam 500 MG/5 ML ORAL SOLUTION (UNIT-DOSE CUPS) GT SCH ×2 (06:12→22:15)
[2017-09-16] MEDS: ALBUTEROL SO4 2.5/IPRATROPIUM 0.5 INH SOL 3 ML VIAL.NEB. NEB SCH ×3 (07:20→20:02)
[2017-09-16 09:19] LABS: BASO % 1.3 % (0-2.0); EOS % 3.5 % (0-4.5); HEMATOCRIT 33.7 % (35.4-49); HEMOGLOBIN 11.2 GM/dL (11.7-16.9); LYMPH % 23.6 % (8-40); MCH 32.8 pg (25.7-33.7); MCHC 33.3 g/dl (32.0-35.9); MEAN CELL VOLUME 98.5 fl (80-96); MEAN PLT VOLUME 7.6 fl (7.5-11.1); MONO % 4.8 % (3.8-10.2); NEUT % 66.8 % (42.8-82.8); PLATELET COUNT 527 K/MM3 (134-434); RBC 3.42 M/mm3 (4.00-5.60); RDW 14.6 % (11.9-15.9); WHITE BLOOD COUNT 14.8 K/mm3 (4.0-10.0)
[2017-09-16 09:46] LABS: ANION GAP 10 (8-16); BLOOD UREA NITROGEN 5 mg/dL (7-18); CALCIUM 8.6 mg/dL (8.5-10.1); CHLORIDE 106 mmol/L (98-107); CO2 25 mmol/L (21-32); GLUCOSE,RANDOM 109 mg/dL (74-106); POTASSIUM 3.5 mmol/L (3.5-5.1); SODIUM 141 mmol/L (136-145)
[2017-09-16 09:47] LABS: CREATININE 0.4 mg/dL (0.7-1.3)
[2017-09-16] MEDS: Lacosamide 50 MG/5 ML ORAL SOLUTION UNIT CUPS GT SCH ×2 (10:22→22:13)
[2017-09-16] MEDS: CEFTRIAXONE 1 G/50 ML PREMIX 50 ML IVPB SCH (10:22)
[2017-09-16] MEDS: PHENobarbital 20 MG/5 ML UNIT-DOSE CUP GT SCH (10:22)
[2017-09-16] MEDS: ZINC OXIDE 20% TOPICAL OINTMENT 30 GM TUBE TP SCH (10:30)
--- NOTE | 2017-09-16 11:12 | PN ---
Progress Note, Physician History of Present Illness: Awake, non-verbal Low grade temps WBC improved - Current Medication List Current Medications: Active Medications Acetaminophen (Ofirmev Injection -) 750 mg IVPB Q6H PRN PRN Reason: FEVER Last Admin: 09/11/17 13:46 Dose: 750 mg Acetaminophen (Tylenol Oral Solution -) 650 mg GT Q6H PRN PRN Reason: FEVER Last Admin: 09/16/17 05:22 Dose: 650 mg Albuterol/Ipratropium (Duoneb -) 1 amp NEB RQID [facility] Last Admin: 09/16/17 11:02 Dose: 1 amp Diazepam (Valium -) 2 mg PO TID [facility] Last Admin: 09/16/17 05:13 Dose: 2 mg Heparin Sodium (Porcine) (Heparin -) 5,000 unit SQ TID [facility] Last Admin: 09/16/17 05:13 Dose: 5,000 unit CEFTRIAXONE 1 G/50 ML PREMIX (Ceftriaxone 1 Gm-D5w Bag) 50 mls @ 100 mls/hr IVPB DAILY [facility] Last Admin: 09/16/17 10:22 Dose: 100 mls/hr Metronidazole (Flagyl 250mg Premixed Ivpb -) 250 mg in 50 mls @ 50 mls/hr IVPB Q8H-IV [facility] Last Admin: 09/16/17 01:30 Dose: 50 mls/hr Lacosamide (Vimpat Liquid -) 50 mg GT BID [facility] Last Admin: 09/16/17 10:22 Dose: 50 mg Levetiracetam (Keppra Oral Solution -) 1,700 mg GT HS [facility] Last Admin: 09/15/17 21:43 Dose: 1,700 mg Levetiracetam (Keppra Oral Solution -) 1,500 mg GT AM [facility] Last Admin: 09/16/17 06:12 Dose: 1,500 mg Montelukast Sodium (Singulair -) 5 mg GT HS [facility] Last Admin: 09/15/17 21:44 Dose: 5 mg Multi-Ingredient Ointment (Zinc Oxide) 1 applic TP BID [facility] Last Admin: 09/16/17 10:30 Dose: 1 applic Ondansetron HCl (Zofran Injection) 4 mg IVPUSH Q6H PRN PRN Reason: NAUSEA Last Admin: 09/10/17 09:18 Dose: 4 mg Phenobarbital (Phenobarbital Liquid -) 20 mg GT DAILY [facility] Last Admin: 09/16/17 10:22 Dose: 20 mg Scopolamine HBr (Transderm-Scop -) 1 patch TD Q48H [facility] Last Admin: 09/14/17 22:40 Dose: 1 patch Vancomycin HCl (Vancomycin Oral Solution) 125 mg PEG Q6HPO [facility] Last Admin: 09/16/17 05:13 Dose: 125 mg - Objective Vital Signs: Vital Signs Temperature 100.4 F H 09/16/17 06:00 Pulse Rate 105 H 09/16/17 08:08 Respiratory Rate 20 09/16/17 06:00 Blood Pressure 127/84 09/16/17 06:00 O2 Sat by Pulse Oximetry (%) 96 09/16/17 08:08 Constitutional: Yes: No Distress Eyes: Yes: Conjunctiva Clear Cardiovascular: Yes: Regular Rate and Rhythm, S1, S2 Respiratory: Yes: Rhonchi Gastrointestinal: Yes: Normal Bowel Sounds, Soft, Other (sl distended, tympanitic no tenderness elicited zelalem in place). No: Tenderness Labs: CBC, BMP 09/16/17 09:06 09/16/17 09:06 INR, PTT INR 1.73 (0.82-1.09) H 09/04/17 20:15 Assessment/Plan Post op laparotomy Probable aspiration pneumonia + C difficile Cerebral palsy Day # 7 empiric ceftriaxone D/C after today's dose Continue vancomycin via GT Complete 14d course of tx for + Cdiff
--- NOTE | 2017-09-16 18:47 | PN ---
Teaching Attending Note Name of Resident: Marshall Bhakta ATTENDING PHYSICIAN STATEMENT I saw and evaluated the patient. I reviewed the resident's note and discussed the case with the resident. I agree with the resident's findings and plan as documented. SUBJECTIVE: Patient is comfortable with no acute distress OBJECTIVE: Vital Signs Temperature 98.9 F 09/16/17 14:18 Pulse Rate 106 H 09/16/17 14:18 Respiratory Rate 18 09/16/17 14:18 Blood Pressure 123/55 09/16/17 14:18 O2 Sat by Pulse Oximetry (%) 100 09/16/17 11:01 CBCD WBC 14.8 K/mm3 (4.0-10.0) H 09/16/17 09:06 RBC 3.42 M/mm3 (4.00-5.60) L 09/16/17 09:06 Hgb 11.2 GM/dL (11.7-16.9) L 09/16/17 09:06 Hct 33.7 % (35.4-49) L 09/16/17 09:06 MCV 98.5 fl (80-96) H 09/16/17 09:06 MCHC 33.3 g/dl (32.0-35.9) 09/16/17 09:06 RDW 14.6 % (11.9-15.9) 09/16/17 09:06 Plt Count 527 K/MM3 (134-434) H D 09/16/17 09:06 MPV 7.6 fl (7.5-11.1) 09/16/17 09:06 CMP Sodium 141 mmol/L (136-145) 09/16/17 09:06 Potassium 3.5 mmol/L (3.5-5.1) 09/16/17 09:06 Chloride 106 mmol/L (98-107) 09/16/17 09:06 Carbon Dioxide 25 mmol/L (21-32) 09/16/17 09:06 Anion Gap 10 (8-16) 09/16/17 09:06 BUN 5 mg/dL (7-18) L 09/16/17 09:06 Creatinine 0.4 mg/dL (0.7-1.3) L 09/16/17 09:06 Creat Clearance w eGFR > 60 (>60) 09/09/17 06:30 Random Glucose 109 mg/dL (74-106) H D 09/16/17 09:06 Calcium 8.6 mg/dL (8.5-10.1) 09/16/17 09:06 Total Bilirubin 0.8 mg/dL (0.2-1.0) 09/09/17 06:30 AST 26 U/L (15-37) 09/09/17 06:30 ALT 40 U/L (12-78) 09/09/17 06:30 Alkaline Phosphatase 133 U/L (45-117) H 09/09/17 06:30 Total Protein 7.5 g/dl (6.4-8.2) 09/09/17 06:30 Albumin 3.5 g/dl (3.4-5.0) 09/09/17 06:30 CARDIAC ENZYMES Creatine Kinase 155 IU/L (39-308) 09/04/17 20:15 Troponin I < 0.02 ng/ml (0.00-0.05) 09/04/17 20:15 Current Medications Generic Name Dose Route Start Last Admin Trade Name Lazaro PRN Reason Stop Dose Admin Acetaminophen 750 mg 09/11/17 07:00 09/11/17 13:46 Ofirmev Injection - IVPB 750 mg Q6H PRN Administration FEVER Acetaminophen 650 mg 09/13/17 15:27 09/16/17 11:32 Tylenol Oral Solution - GT 650 mg Q6H PRN Administration FEVER Albuterol/Ipratropium 1 amp 09/08/17 08:59 09/16/17 11:02 Duoneb - NEB 1 amp RQID AUNG Administration Diazepam 2 mg 09/15/17 22:00 09/16/17 15:24 Valium - PO 2 mg TID AUNG Administration Heparin Sodium (Porcine) 5,000 unit 09/06/17 14:00 09/16/17 15:24 Heparin - SQ 5,000 unit TID AUNG Administration CEFTRIAXONE 1 G/50 ML PREMIX 50 mls @ 100 mls/hr 09/10/17 16:15 09/16/17 10: 22 Ceftriaxone 1 Gm-D5w Bag IVPB 09/16/17 23:00 100 mls/hr DAILY AUNG Administration Lacosamide 50 mg 09/15/17 22:00 09/16/17 10:22 Vimpat Liquid - GT 50 mg BID AUNG Administration Levetiracetam 1,700 mg 09/08/17 22:00 09/15/17 21:43 Keppra Oral Solution - GT 1,700 mg HS AUNG Administration Levetiracetam 1,500 mg 09/09/17 07:00 09/16/17 06:12 Keppra Oral Solution - GT 1,500 mg AM AUNG Administration Montelukast Sodium 5 mg 09/08/17 22:00 09/15/17 21:44 Singulair - GT 5 mg HS AUNG Administration Multi-Ingredient Ointment 1 applic 09/14/17 18:00 09/16/17 10:30 Zinc Oxide TP 1 applic BID AUNG Administration Ondansetron HCl 4 mg 09/10/17 09:07 09/10/17 09:18 Zofran Injection IVPUSH 4 mg Q6H PRN Administration NAUSEA Phenobarbital 20 mg 09/16/17 10:00 09/16/17 10:22 Phenobarbital Liquid - GT 20 mg DAILY AUNG Administration Scopolamine HBr 1 patch 09/06/17 23:30 09/14/17 22:40 Transderm-Scop - TD 1 patch Q48H AUNG Administration Vancomycin HCl 125 mg 09/15/17 18:00 09/16/17 17:16 Vancomycin Oral Solution PEG 125 mg Q6HPO AUNG Administration Home Medications Medication Instructions Recorded Albuterol 0.083% Nebulizer Martha 1 neb NEB QID PRN 12/03/16 [Ventolin 0.083% Nebulizer Soln -] Clobetasol Propionate/Emoll 15 gm TP DAILY 12/03/16 [Clobetasol Emollient 0.05% Crm] Diazepam 2 mg PO TID 12/03/16 Gabapentin 400 mg PO BID 12/03/16 Glycopyrrolate in Water/Pf 1 mg IV BID 12/03/16 [Glycopyrrolate 1 mg/5 ml-Water] Lacosamide [Vimpat -] 50 mg PO BID 12/03/16 Montelukast Na [Singulair -] 5 mg PO HS 12/03/16 Phenobarbital 20 mg GT DAILY 12/03/16 Scopolamine [Transderm-Scop] 1 each TD Q2D 12/03/16 Albuterol 2.5/Ipratropium 0.5 1 neb IH QID 01/05/18 [Duoneb -] Lactulose [Cephulac -] 30 ml GT DAILY 09/04/17 Levetiracetam [Keppra Oral 1,500 mg GT DAILY 09/04/17 Solution -] Levetiracetam [Keppra Oral 1,700 mg GT HS 09/04/17 Solution -] PE: per resident's note ASSESSMENT AND PLAN: 22 y/o man with h/o MR, cerebral palsy, Seizure and other medical problems who presented with fever. #Fever, likely form aspiration PNA. CT of abd with no abscess , US of legs with no DVT ,+ c diff Ag , despite no diarrhea , with worsening leukocytosis contuue , Flagyl was discontinued and was given Vancomycin orally instead, On ceftriaxone for PNA , today day 6. will d/w ID about duration # S/p laparotomy, no perforation seen. cont conservative mgt , tolerated TF at 30 cc/hr # Seizure disorder, cont meds On Vanco for cdiff antigen positive since patient continues to have a low grade fever. will monitor. discussed with surgery will evaluate the G-tube since very slow leak around it, also series ordered.
[2017-09-16] MEDS: MONTELUKAST NA 5 MG TAB.CHEW GT SCH (22:14)
[2017-09-17] MEDS: VANCOMYCIN 250 MG/5 ML ORAL SOLUTION PEG SCH ×5 (00:06→23:26)
[2017-09-17] MEDS: ZINC OXIDE 20% TOPICAL OINTMENT 30 GM TUBE TP SCH ×3 (00:49→23:26)
[2017-09-17] MEDS: SCOPOLAMINE HYDROBROMIDE 1 PATCH PATCH.TD72 TD SCH (00:49)
--- NOTE | 2017-09-17 05:42 | PN ---
Physical Exam: SUBJECTIVE: Patient seen and examined at bedside. tachypnech, tachycardia, had fever 100.5 over night. G tube still leaking, will follow up with surgeon for possible replacement. OBJECTIVE: Vital Signs Period Temp Pulse Resp BP Sys/Jay Pulse Ox Last 24 Hr 98.9 F-100.5 F 84-123 18-20 107-136/55-107 96-100 GENERAL: Non-verbal, contracted, grimace when moved, in NAD EYES: sclera anicteric, conjunctiva clear. LUNGS: Slight bilateral wheezes anteriorly HEART: RRR, S1, S2 without murmur, rub or gallop. ABDOMEN: Soft, nondistended, G tube site has small brownish discharge with 3- 4cm radius erythematous and lincheized skin surrounding the insertion point; vertical surgical scar with ~20 clips, no erythema or active drainage seen. EXTREMITIES: 2+ pulses, warm, well-perfused, no edema. Laboratory Results - last 24 hr 09/16/17 09/16/17 09:06 09:06 WBC 14.8 H RBC 3.42 L Hgb 11.2 L Hct 33.7 L MCV 98.5 H MCH 32.8 MCHC 33.3 RDW 14.6 Plt Count 527 H D MPV 7.6 Neutrophils % 66.8 Lymphocytes % 23.6 Monocytes % 4.8 Eosinophils % 3.5 Basophils % 1.3 Sodium 141 Potassium 3.5 Chloride 106 Carbon Dioxide 25 Anion Gap 10 BUN 5 L Creatinine 0.4 L Random Glucose 109 H D Calcium 8.6 Active Medications Generic Name Dose Route Start Last Admin Trade Name Freq PRN Reason Stop Dose Admin Acetaminophen 750 mg 09/11/17 07:00 09/11/17 13:46 Ofirmev Injection - IVPB 750 mg Q6H PRN Administration FEVER Acetaminophen 650 mg 09/13/17 15:27 09/16/17 22:13 Tylenol Oral Solution - GT 650 mg Q6H PRN Administration FEVER Albuterol/Ipratropium 1 amp 09/08/17 08:59 09/16/17 20:02 Duoneb - NEB 1 amp RQID AUNG Administration Diazepam 2 mg 09/15/17 22:00 09/16/17 22:14 Valium - PO 2 mg TID AUNG Administration Heparin Sodium (Porcine) 5,000 unit 09/06/17 14:00 09/16/17 22:13 Heparin - SQ 5,000 unit TID AUNG Administration Lacosamide 50 mg 09/15/17 22:00 09/16/17 22:13 Vimpat Liquid - GT 50 mg BID AUNG Administration Levetiracetam 1,700 mg 09/08/17 22:00 09/16/17 22:15 Keppra Oral Solution - GT 1,700 mg HS AUNG Administration Levetiracetam 1,500 mg 09/09/17 07:00 09/16/17 06:12 Keppra Oral Solution - GT 1,500 mg AM AUNG Administration Montelukast Sodium 5 mg 09/08/17 22:00 09/16/17 22:14 Singulair - GT 5 mg HS AUNG Administration Multi-Ingredient Ointment 1 applic 09/14/17 18:00 09/17/17 00:49 Zinc Oxide TP 1 applic BID AUNG Administration Ondansetron HCl 4 mg 09/10/17 09:07 09/10/17 09:18 Zofran Injection IVPUSH 4 mg Q6H PRN Administration NAUSEA Phenobarbital 20 mg 09/16/17 10:00 09/16/17 10:22 Phenobarbital Liquid - GT 20 mg DAILY AUNG Administration Scopolamine HBr 1 patch 09/06/17 23:30 09/17/17 00:49 Transderm-Scop - TD 1 patch Q48H AUNG Administration Vancomycin HCl 125 mg 09/15/17 18:00 09/17/17 00:06 Vancomycin Oral Solution PEG 125 mg Q6HPO AUNG Administration CBC, BMP 09/17/17 07:45 09/17/17 07:45 ASSESSMENT/PLAN: 22 yo M [place] resident h/o cortical blindness, cerebral palsy, spastic quadriplegia, seizure disorder, reactive airway disease, YAKELIN, GERD, HTN, strabismus, scoliosis, nonverbal admitted to med-surg initially for suspected perforated viscus and later developed aspiration PNA. Sepsis - Likely 2/2 aspiation PNA, vs c. diff * WBC trending down 14.8 ...> 12.7 * c. diff ag + but toxin - but will retreat regardless considering persistent * Start Vanco 125 mg Q6 hr , complete 14 days course per ID (day 3 ) * ID on the board elevated temp - CT abd negative for post-op wound abscess - DC rocephin (day 7) last dose. DC flagyl day 4 - Cont. tube feed with free water GI Tube possible leaking * evaluated by the tube is functioning very well and no need for replacemnet per Dr Beck * G tube is surgical placed,spoke with surgery team for replacing * G tube rad evaluation ordered spoke with surgery team to evaluate the G tube . Hypokalemia, resolved - Replete K+ with KCl via G tube. today K 4.3 - Cont. to monitor Seizure disorder - Been seizure free during hospitalization - Continue home keppra Reactive airway disease - Duonebs standing and PRN - Continue scopolamine Anemia, chronic * H/H stable but low 12.4/38 * Likely 2/2 low intake vs chronic disease * monitor H/H FEN - Continue G tube feed, increase rate to 40 - Monitor BMP Prophylaxis - DVT: Heparin 5000 IU sq TID Dispo - Cont. to monitor on the floor for persistent elevated temps and WBC Visit type - Emergency Visit Emergency Visit: Yes ED Registration Date: 09/05/17 Care time: The patient presented to the Emergency Department on the above date and was hospitalized for further evaluation of their emergent condition. - New Patient This patient is new to me today: No - Critical Care Critical Care patient: No
[2017-09-17] MEDS ORDERED: PT OWN MED DRAWER 7, Y5N ONE ×2 (06:16→23:04)
[2017-09-17] MEDS: HEPARIN NA (PORCINE) 5,000 UNITS/ML 1ML VIAL SQ SCH ×3 (06:27→23:22)
[2017-09-17] MEDS: diazePAM 2 MG TABLET PO SCH ×3 (06:27→23:23)
[2017-09-17] MEDS: levETIRAcetam 500 MG/5 ML ORAL SOLUTION (UNIT-DOSE CUPS) GT SCH ×2 (06:28→23:24)
[2017-09-17] MEDS: ALBUTEROL SO4 2.5/IPRATROPIUM 0.5 INH SOL 3 ML VIAL.NEB. NEB SCH ×4 (07:50→21:05)
[2017-09-17 08:12] LABS: BASO % 0.3 % (0-2.0); HEMOGLOBIN 12.4 GM/dL (11.7-16.9); LYMPH % 21.6 % (8-40); MCH 32.8 pg (25.7-33.7); MCHC 32.5 g/dl (32.0-35.9); MEAN CELL VOLUME 100.8 fl (80-96); MEAN PLT VOLUME 7.8 fl (7.5-11.1); MONO % 5.5 % (3.8-10.2); NEUT % 69.6 % (42.8-82.8); PLATELET COUNT 619 K/MM3 (134-434); RBC 3.77 M/mm3 (4.00-5.60); WHITE BLOOD COUNT 12.7 K/mm3 (4.0-10.0)
[2017-09-17 08:34] LABS: ALBUMIN 3.8 g/dl (3.4-5.0); ANION GAP 7 (8-16); BLOOD UREA NITROGEN 6 mg/dL (7-18); CALCIUM 9.2 mg/dL (8.5-10.1); CHLORIDE 106 mmol/L (98-107); CO2 28 mmol/L (21-32); CREATININE 0.5 mg/dL (0.7-1.3); GLUCOSE,RANDOM 108 mg/dL (74-106); MAGNESIUM 2.2 mg/dL (1.8-2.4); PHOSPHOROUS 5.2 mg/dL (2.5-4.9); POTASSIUM 4.3 mmol/L (3.5-5.1); SGOT/AST 26 U/L (15-37); SGPT/ALT 50 U/L (12-78); SODIUM 141 mmol/L (136-145)
[2017-09-17 08:35] LABS: ALK PHOS 137 U/L (45-117); BILIRUBIN,TOTAL 0.6 mg/dL (0.2-1.0); TOT PROT 8.4 g/dl (6.4-8.2)
[2017-09-17] MEDS: PHENobarbital 20 MG/5 ML UNIT-DOSE CUP GT SCH (09:52)
[2017-09-17] MEDS: Lacosamide 50 MG/5 ML ORAL SOLUTION UNIT CUPS GT SCH ×2 (09:52→23:24)
--- NOTE | 2017-09-17 13:55 | PN ---
Progress Note, Physician History of Present Illness: Chart reviewed. Events noted. Minimal leakage of gastric content at the base of the otherwise intact, functional PEG. - Current Medication List Current Medications: Active Medications Acetaminophen (Ofirmev Injection -) 750 mg IVPB Q6H PRN PRN Reason: FEVER Last Admin: 09/11/17 13:46 Dose: 750 mg Acetaminophen (Tylenol Oral Solution -) 650 mg GT Q6H PRN PRN Reason: FEVER Last Admin: 09/16/17 22:13 Dose: 650 mg Albuterol/Ipratropium (Duoneb -) 1 amp NEB RQID [facility] Last Admin: 09/17/17 11:44 Dose: Not Given Diazepam (Valium -) 2 mg PO TID [facility] Last Admin: 09/17/17 13:27 Dose: 2 mg Heparin Sodium (Porcine) (Heparin -) 5,000 unit SQ TID [facility] Last Admin: 09/17/17 13:27 Dose: 5,000 unit Lacosamide (Vimpat Liquid -) 50 mg GT BID [facility] Last Admin: 09/17/17 09:52 Dose: 50 mg Levetiracetam (Keppra Oral Solution -) 1,700 mg GT HS [facility] Last Admin: 09/16/17 22:15 Dose: 1,700 mg Levetiracetam (Keppra Oral Solution -) 1,500 mg GT AM [facility] Last Admin: 09/17/17 06:28 Dose: 1,500 mg Montelukast Sodium (Singulair -) 5 mg GT HS [facility] Last Admin: 09/16/17 22:14 Dose: 5 mg Multi-Ingredient Ointment (Zinc Oxide) 1 applic TP BID [facility] Last Admin: 09/17/17 09:52 Dose: 1 applic Ondansetron HCl (Zofran Injection) 4 mg IVPUSH Q6H PRN PRN Reason: NAUSEA Last Admin: 09/10/17 09:18 Dose: 4 mg Phenobarbital (Phenobarbital Liquid -) 20 mg GT DAILY [facility] Last Admin: 09/17/17 09:52 Dose: 20 mg Scopolamine HBr (Transderm-Scop -) 1 patch TD Q48H [facility] Last Admin: 09/17/17 00:49 Dose: 1 patch Vancomycin HCl (Vancomycin Oral Solution) 125 mg PEG Q6HPO [facility] Last Admin: 09/17/17 11:52 Dose: 125 mg - Objective Vital Signs: Vital Signs Temperature 98.9 F 09/17/17 06:00 Pulse Rate 96 H 09/17/17 07:48 Respiratory Rate 16 09/17/17 06:00 Blood Pressure 137/79 09/17/17 06:00 O2 Sat by Pulse Oximetry (%) 100 09/17/17 07:48 Constitutional: Yes: No Distress Gastrointestinal: Yes: Soft, Distention Labs: CBC, BMP 09/17/17 07:45 09/17/17 07:45 INR, PTT INR 1.73 (0.82-1.09) H 09/04/17 20:15 - ....Imaging X-ray: Report Reviewed (functional G-tube) Problem List - Problems (1) Fever Code(s): R50.9 - FEVER, UNSPECIFIED (2) S/P exploratory laparotomy Code(s): Z98.890 - OTHER SPECIFIED POSTPROCEDURAL STATES Assessment/Plan Recommend to continue using the G-tube as intended.
--- NOTE | 2017-09-17 19:40 | PN ---
Teaching Attending Note Name of Resident: Marshall Bhakta ATTENDING PHYSICIAN STATEMENT I saw and evaluated the patient. I reviewed the resident's note and discussed the case with the resident. I agree with the resident's findings and plan as documented. SUBJECTIVE: PATIENT IS DOING BETTER, NO ACUTE DISTRESS. OBJECTIVE: Vital Signs Temperature 98.0 F 09/17/17 10:00 Pulse Rate 114 H 09/17/17 10:00 Respiratory Rate 20 09/17/17 10:00 Blood Pressure 122/57 09/17/17 10:00 O2 Sat by Pulse Oximetry (%) 99 09/17/17 09:00 CBCD WBC 12.7 K/mm3 (4.0-10.0) H 09/17/17 07:45 RBC 3.77 M/mm3 (4.00-5.60) L 09/17/17 07:45 Hgb 12.4 GM/dL (11.7-16.9) D 09/17/17 07:45 Hct 38.0 % (35.4-49) 09/17/17 07:45 MCV 100.8 fl (80-96) H 09/17/17 07:45 MCHC 32.5 g/dl (32.0-35.9) 09/17/17 07:45 RDW 15.0 % (11.9-15.9) 09/17/17 07:45 Plt Count 619 K/MM3 (134-434) H 09/17/17 07:45 MPV 7.8 fl (7.5-11.1) 09/17/17 07:45 CMP Sodium 141 mmol/L (136-145) 09/17/17 07:45 Potassium 4.3 mmol/L (3.5-5.1) D 09/17/17 07:45 Chloride 106 mmol/L (98-107) 09/17/17 07:45 Carbon Dioxide 28 mmol/L (21-32) 09/17/17 07:45 Anion Gap 7 (8-16) L 09/17/17 07:45 BUN 6 mg/dL (7-18) L 09/17/17 07:45 Creatinine 0.5 mg/dL (0.7-1.3) L D 09/17/17 07:45 Creat Clearance w eGFR > 60 (>60) 09/17/17 07:45 Random Glucose 108 mg/dL (74-106) H 09/17/17 07:45 Calcium 9.2 mg/dL (8.5-10.1) 09/17/17 07:45 Total Bilirubin 0.6 mg/dL (0.2-1.0) D 09/17/17 07:45 AST 26 U/L (15-37) 09/17/17 07:45 ALT 50 U/L (12-78) D 09/17/17 07:45 Alkaline Phosphatase 137 U/L (45-117) H 09/17/17 07:45 Total Protein 8.4 g/dl (6.4-8.2) H 09/17/17 07:45 Albumin 3.8 g/dl (3.4-5.0) 09/17/17 07:45 CARDIAC ENZYMES Creatine Kinase 155 IU/L (39-308) 09/04/17 20:15 Troponin I < 0.02 ng/ml (0.00-0.05) 09/04/17 20:15 Current Medications Generic Name Dose Route Start Last Admin Trade Name Freq PRN Reason Stop Dose Admin Acetaminophen 750 mg 09/11/17 07:00 09/11/17 13:46 Ofirmev Injection - IVPB 750 mg Q6H PRN Administration FEVER Acetaminophen 650 mg 09/13/17 15:27 09/16/17 22:13 Tylenol Oral Solution - GT 650 mg Q6H PRN Administration FEVER Albuterol/Ipratropium 1 amp 09/08/17 08:59 09/17/17 16:43 Duoneb - NEB 1 amp RQID AUNG Administration Diazepam 2 mg 09/15/17 22:00 09/17/17 13:27 Valium - PO 2 mg TID AUNG Administration Heparin Sodium (Porcine) 5,000 unit 09/06/17 14:00 09/17/17 13:27 Heparin - SQ 5,000 unit TID AUNG Administration Lacosamide 50 mg 09/15/17 22:00 09/17/17 09:52 Vimpat Liquid - GT 50 mg BID AUNG Administration Levetiracetam 1,700 mg 09/08/17 22:00 09/16/17 22:15 Keppra Oral Solution - GT 1,700 mg HS AUNG Administration Levetiracetam 1,500 mg 09/09/17 07:00 09/17/17 06:28 Keppra Oral Solution - GT 1,500 mg AM AUNG Administration Montelukast Sodium 5 mg 09/08/17 22:00 09/16/17 22:14 Singulair - GT 5 mg HS AUNG Administration Multi-Ingredient Ointment 1 applic 09/14/17 18:00 09/17/17 09:52 Zinc Oxide TP 1 applic BID AUNG Administration Ondansetron HCl 4 mg 09/10/17 09:07 09/10/17 09:18 Zofran Injection IVPUSH 4 mg Q6H PRN Administration NAUSEA Phenobarbital 20 mg 09/16/17 10:00 09/17/17 09:52 Phenobarbital Liquid - GT 20 mg DAILY AUNG Administration Scopolamine HBr 1 patch 09/06/17 23:30 09/17/17 00:49 Transderm-Scop - TD 1 patch Q48H AUNG Administration Vancomycin HCl 125 mg 09/15/17 18:00 09/17/17 17:09 Vancomycin Oral Solution PEG 125 mg Q6HPO AUNG Administration Home Medications Medication Instructions Recorded Albuterol 0.083% Nebulizer Martha 1 neb NEB QID PRN 12/03/16 [Ventolin 0.083% Nebulizer Soln -] Clobetasol Propionate/Emoll 15 gm TP DAILY 12/03/16 [Clobetasol Emollient 0.05% Crm] Diazepam 2 mg PO TID 12/03/16 Gabapentin 400 mg PO BID 12/03/16 Glycopyrrolate in Water/Pf 1 mg IV BID 12/03/16 [Glycopyrrolate 1 mg/5 ml-Water] Lacosamide [Vimpat -] 50 mg PO BID 12/03/16 Montelukast Na [Singulair -] 5 mg PO HS 12/03/16 Phenobarbital 20 mg GT DAILY 12/03/16 Scopolamine [Transderm-Scop] 1 each TD Q2D 12/03/16 Albuterol 2.5/Ipratropium 0.5 1 neb IH QID 09/04/17 [Duoneb -] Lactulose [Cephulac -] 30 ml GT DAILY 09/04/17 Levetiracetam [Keppra Oral 1,500 mg GT DAILY 09/04/17 Solution -] Levetiracetam [Keppra Oral 1,700 mg GT HS 09/04/17 Solution -] ASSESSMENT AND PLAN: 22 y/o man with h/o MR, cerebral palsy, Seizure and other medical problems who presented with fever. #Fever, RESOLVED . CT of abd with no abscess , US of legs with no DVT ,+ c diff Ag , despite no diarrhea , with worsening leukocytosis continue vancomycin orally for cdiff # Seizure disorder, cont meds G-tube studies were done: is functional continue use.
[2017-09-17] MEDS: MONTELUKAST NA 5 MG TAB.CHEW GT SCH (23:23)
--- NOTE | 2017-09-18 04:29 | PN ---
Physical Exam: SUBJECTIVE: Patient seen and examined at bedside. No acute events over night . No fever, still have some leaking from the G tube.[place] him [place] [facility] [place] [facility]. OBJECTIVE: Vital Signs Period Temp Pulse Resp BP Sys/Jay Pulse Ox Last 24 Hr 98.0 F-98.9 F 96-116 16-20 122-137/57-80 99-100 GENERAL: Non-verbal, contracted, grimace when moved, in NAD EYES: sclera anicteric, conjunctiva clear. LUNGS: Slight bilateral wheezes anteriorly HEART: RRR, S1, S2 without murmur, rub or gallop. ABDOMEN: Soft, distended, G tube site has small brownish discharge with 3-4cm radius erythematous and lincheized skin surrounding the insertion point; vertical surgical scar with ~20 clips, no erythema or active drainage seen. EXTREMITIES: 2+ pulses, warm, well-perfused, no edema. Laboratory Results - last 24 hr 09/17/17 09/17/17 07:45 07:45 WBC 12.7 H RBC 3.77 L Hgb 12.4 D Hct 38.0 MCV 100.8 H MCH 32.8 MCHC 32.5 RDW 15.0 Plt Count 619 H MPV 7.8 Neutrophils % 69.6 Lymphocytes % 21.6 Monocytes % 5.5 Eosinophils % 3.0 Basophils % 0.3 Sodium 141 Potassium 4.3 D Chloride 106 Carbon Dioxide 28 Anion Gap 7 L BUN 6 L Creatinine 0.5 L D Creat Clearance w eGFR > 60 Random Glucose 108 H Calcium 9.2 Phosphorus 5.2 H D Magnesium 2.2 Total Bilirubin 0.6 D AST 26 ALT 50 D Alkaline Phosphatase 137 H Total Protein 8.4 H Albumin 3.8 Active Medications Generic Name Dose Route Start Last Admin Trade Name Freq PRN Reason Stop Dose Admin Acetaminophen 750 mg 09/11/17 07:00 09/11/17 13:46 Ofirmev Injection - IVPB 750 mg Q6H PRN Administration FEVER Acetaminophen 650 mg 09/13/17 15:27 09/16/17 22:13 Tylenol Oral Solution - GT 650 mg Q6H PRN Administration FEVER Albuterol/Ipratropium 1 amp 09/08/17 08:59 09/17/17 21:05 Duoneb - NEB 1 amp RQID AUNG Administration Diazepam 2 mg 09/15/17 22:00 09/17/17 23:23 Valium - PO 2 mg TID AUNG Administration Heparin Sodium (Porcine) 5,000 unit 09/06/17 14:00 09/17/17 23:22 Heparin - SQ 5,000 unit TID AUNG Administration Lacosamide 50 mg 09/15/17 22:00 09/17/17 23:24 Vimpat Liquid - GT 50 mg BID AUNG Administration Levetiracetam 1,700 mg 09/08/17 22:00 09/17/17 23:24 Keppra Oral Solution - GT 1,700 mg HS AUNG Administration Levetiracetam 1,500 mg 09/09/17 07:00 09/17/17 06:28 Keppra Oral Solution - GT 1,500 mg AM AUNG Administration Montelukast Sodium 5 mg 09/08/17 22:00 09/17/17 23:23 Singulair - GT 5 mg HS AUNG Administration Multi-Ingredient Ointment 1 applic 09/14/17 18:00 09/17/17 23:26 Zinc Oxide TP 1 applic BID AUNG Administration Ondansetron HCl 4 mg 09/10/17 09:07 09/10/17 09:18 Zofran Injection IVPUSH 4 mg Q6H PRN Administration NAUSEA Phenobarbital 20 mg 09/16/17 10:00 09/17/17 09:52 Phenobarbital Liquid - GT 20 mg DAILY AUNG Administration Scopolamine HBr 1 patch 09/06/17 23:30 09/17/17 00:49 Transderm-Scop - TD 1 patch Q48H UANG Administration Vancomycin HCl 125 mg 09/15/17 18:00 09/17/17 23:26 Vancomycin Oral Solution PEG 125 mg Q6HPO AUNG Administration CBC, BMP 09/18/17 08:10 09/18/17 08:10 ASSESSMENT/PLAN: 22 yo M [place] resident h/o cortical blindness, cerebral palsy, spastic quadriplegia, seizure disorder, reactive airway disease, YAKELIN, GERD, HTN, strabismus, scoliosis, nonverbal admitted to med-surg initially for suspected perforated viscus and later developed aspiration PNA. Sepsis - Likely 2/2 aspiation PNA, vs c. diff * WBC trending down 14.8 ...> 12.7 * c. diff ag + but toxin - but will retreat regardless considering persistent * Start Vanco 125 mg Q6 hr , complete 14 days course per ID (day 3 ) * ID on the board elevated temp - CT abd negative for post-op wound abscess - DC rocephin (day 7) last dose. DC flagyl day 4 - Cont. tube feed with free water GI Tube possible leaking * evaluated by the tube is functioning very well and no need for replacemnet per Dr Beck * G tube is surgical placed,spoke with surgery team for replacing * G tube rad evaluation ordered spoke with surgery team to evaluate the G tube . Hypokalemia, resolved - Replete K+ with KCl via G tube. today K 4.3 - Cont. to monitor Seizure disorder - Been seizure free during hospitalization - Continue home keppra Reactive airway disease - Duonebs standing and PRN - Continue scopolamine Anemia, chronic * H/H stable but low 12.4/38 * Likely 2/2 low intake vs chronic disease * monitor H/H FEN - Continue G tube feed, decrease rate to 25 - Monitor BMP Prophylaxis - DVT: Heparin 5000 IU sq TID Dispo - Cont. to monitor on the floor for persistent elevated temps and WBC Visit type - Emergency Visit Emergency Visit: Yes ED Registration Date: 09/05/17 Care time: The patient presented to the Emergency Department on the above date and was hospitalized for further evaluation of their emergent condition. - New Patient This patient is new to me today: No - Critical Care Critical Care patient: No - Discharge Referral Referred to [facility] Med P.C.: No
[2017-09-18] MEDS: HEPARIN NA (PORCINE) 5,000 UNITS/ML 1ML VIAL SQ SCH ×2 (05:38→13:49)
[2017-09-18] MEDS: VANCOMYCIN 250 MG/5 ML ORAL SOLUTION PEG SCH ×2 (05:39→12:46)
[2017-09-18] MEDS: diazePAM 2 MG TABLET PO SCH ×2 (05:40→13:49)
[2017-09-18] MEDS: levETIRAcetam 500 MG/5 ML ORAL SOLUTION (UNIT-DOSE CUPS) GT SCH (06:38)
[2017-09-18] MEDS: ALBUTEROL SO4 2.5/IPRATROPIUM 0.5 INH SOL 3 ML VIAL.NEB. NEB SCH ×2 (08:07→11:10)
[2017-09-18 09:16] LABS: ALBUMIN 3.7 g/dl (3.4-5.0); ALK PHOS 135 U/L (45-117); ANION GAP 12 (8-16); BILIRUBIN,TOTAL 0.5 mg/dL (0.2-1.0); BLOOD UREA NITROGEN 7 mg/dL (7-18); CALCIUM 9.3 mg/dL (8.5-10.1); CHLORIDE 102 mmol/L (98-107); CO2 25 mmol/L (21-32); CREATININE 0.4 mg/dL (0.7-1.3); GLUCOSE,RANDOM 99 mg/dL (74-106); SGPT/ALT 47 U/L (12-78); SODIUM 139 mmol/L (136-145); TOT PROT 8.5 g/dl (6.4-8.2)
[2017-09-18 09:17] LABS: MAGNESIUM 2.2 mg/dL (1.8-2.4); POTASSIUM 4.5 mmol/L (3.5-5.1); SGOT/AST 36 U/L (15-37)
--- NOTE | 2017-09-18 09:24 | PN ---
Progress Note (short form) - Note Progress Note: Attending Surgeon POD#13 Seen in f/u; tolerating tube feeds Incision c/d/i; some distal zelalem removed w/some limited serous drainage; GT intact and functioning well; d/c appears to be from gastric mucosa. Continue local wound care; zelalem may be removed in the outpatient setting. Ankit Cooley MD FACS
[2017-09-18 09:36] LABS: BASO % 1.1 % (0-2.0); EOS % 2.9 % (0-4.5); HEMOGLOBIN 12.4 GM/dL (11.7-16.9); LYMPH % 27.9 % (8-40); MCH 32.9 pg (25.7-33.7); MCHC 32.7 g/dl (32.0-35.9); MEAN CELL VOLUME 100.6 fl (80-96); MEAN PLT VOLUME 8.9 fl (7.5-11.1); MONO % 6.8 % (3.8-10.2); NEUT % 61.3 % (42.8-82.8); RBC 3.78 M/mm3 (4.00-5.60); RDW 15.3 % (11.9-15.9); WHITE BLOOD COUNT 11.9 K/mm3 (4.0-10.0)
[2017-09-18] MEDS ORDERED: PT OWN MED DRAWER 7, Y5N ONE ×2 (09:36→12:15)
[2017-09-18] MEDS: PHENobarbital 20 MG/5 ML UNIT-DOSE CUP GT SCH (09:48)
[2017-09-18] MEDS: Lacosamide 50 MG/5 ML ORAL SOLUTION UNIT CUPS GT SCH (09:48)
[2017-09-18] MEDS: ZINC OXIDE 20% TOPICAL OINTMENT 30 GM TUBE TP SCH (09:48)
--- NOTE | 2017-09-18 11:17 | DS ---
Physical Exam: SUBJECTIVE: Patient seen and examined at bed side. he stable , afebrile amd ready to go back to [facility]. OBJECTIVE: Vital Signs Period Temp Pulse Resp BP Sys/Jay Pulse Ox Last 24 Hr 98.7 F-99 F 115-122 18-20 116-129/66-80 99 PHYSICAL EXAM GENERAL: Non-verbal, contracted, grimace when moved, in NAD EYES: sclera anicteric, conjunctiva clear. LUNGS: Slight bilateral wheezes anteriorly HEART: RRR, S1, S2 without murmur, rub or gallop. ABDOMEN: Soft, distended, G tube site has small brownish discharge with 3-4cm radius erythematous and lincheized skin surrounding the insertion point; vertical surgical scar with ~20 clips, no erythema or active drainage seen. EXTREMITIES: 2+ pulses, warm, well-perfused, no edema. LABS Laboratory Results - last 24 hr 09/18/17 09/18/17 09/18/17 08:10 08:10 08:10 WBC 11.9 H RBC 3.78 L Hgb 12.4 Hct 38.0 MCV 100.6 H MCH 32.9 MCHC 32.7 RDW 15.3 MPV 8.9 D Neutrophils % 61.3 Lymphocytes % 27.9 D Monocytes % 6.8 Eosinophils % 2.9 Basophils % 1.1 D Sodium 139 Potassium 4.5 Chloride 102 Carbon Dioxide 25 Anion Gap 12 BUN 7 Creatinine 0.4 L Creat Clearance w eGFR > 60 Random Glucose 99 Calcium 9.3 Magnesium 2.2 Cancelled Total Bilirubin 0.5 AST 36 D ALT 47 Alkaline Phosphatase 135 H Total Protein 8.5 H Albumin 3.7 CBC, BMP 09/18/17 08:10 09/18/17 08:10 HOSPITAL COURSE: Date of Admission:09/05/17 Date of Discharge: 09/18/17 22 yo M [place] resident h/o cortical blindness, cerebral palsy, spastic quadriplegia, seizure disorder, reactive airway disease, YAKELIN, GERD, HTN, strabismus, scoliosis, nonverbal admitted to med-surg initially for suspected perforated viscus and later developed aspiration PNA. Patient was found to have sepsis Likely secondary to aspiation PNA, vs c. diff treated with antibiotics , he will be send back to [facility] on Vanco 125 mg Q6 hr , completed 7 days course of Rocephine, 4 days of flagyl, will need to complete 14 days course per ID (day 4 ) another 10 days will be needed as out patient . Patient was afebrile for [address] abd negative for post- op wound abscess. patient develop hypokalemia which replenished via G tube, evans of discharge K 4.5. patient has a history of Seizure , has been seizure free during hospitalization , Continue home keppra. G tube was leaking duering hospitalization, G tube evaluated by Dr.Kogan RUTLEDGE and Dr. Cooley surgeon both agree that the tube is functioning very well and no need to replace it. will continue tube feed @ rate of 30 , with free water. patient was on heparine 5000 units Sq TID during hospitalization for DVT prophylaxis. patient hemoglobin was stable dueing hospitalization with H/H 12.4/38 on day of discharged. patient is stable to be send back to [facility]. Minutes to complete discharge: 40 Discharge Summary Reason For Visit: PERFORATED ABDOMINAL VISCUS Current Active Problems Fever (Acute) Perforated abdominal viscus (Acute) S/P exploratory laparotomy (Acute) Condition: Guarded - Instructions Diet, Activity, Other Instructions: Patient was admitted to the hospital due to sepsis secondary to aspiration pneumonia Please resume your home medicine as prescribed . Please take vancomycine 125 mg Q6hr via G tube for the next 10 days. please use o2 @ 2L via NC to keep O2 sat >92% Please use aspiration precautions Continue Tube feeding @ rate of 30 CC Continue wound care as prescribed Please follow up with within a week to remove zelalem Referrals: Ankit Cooley MD [Staff Physician] - 1 Week Ignacio Vo MD [Primary Care Provider] - Disposition: LONGTERM FACILITY - Home Medications Comprehensive Discharge Medication List: Ambulatory Orders Albuterol 0.083% Nebulizer Martha [Ventolin 0.083% Nebulizer Soln -] 1 neb NEB QID PRN 12/03/16 Clobetasol Propionate/Emoll [Clobetasol Emollient 0.05% Crm] 15 gm TP DAILY 01/14 Diazepam 2 mg PO TID 12/03/16 Gabapentin 400 mg PO BID 12/03/16 Glycopyrrolate in Water/Pf [Glycopyrrolate 1 mg/5 ml-Water] 1 mg IV BID Lacosamide [Vimpat -] 50 mg PO BID 12/03/16 Montelukast Na [Singulair -] 5 mg PO HS 12/03/16 Phenobarbital 20 mg GT DAILY 12/03/16 Scopolamine [Transderm-Scop] 1 each TD Q2D 12/03/16 Albuterol 2.5/Ipratropium 0.5 [Duoneb -] 1 neb IH QID 09/04/17 Lactulose [Cephulac -] 30 ml GT DAILY 09/04/17 Levetiracetam [Keppra Oral Solution -] 1,500 mg GT DAILY 09/04/17 Levetiracetam [Keppra Oral Solution -] 1,700 mg GT HS 09/04/17 Lacosamide Liquid [Vimpat Liquid -] 50 mg GT BID cup MDD 100 mg 09/18/17 Vancomycin Oral Solution 125 mg PEG Q6HPO ml 09/18/17 Zinc Oxide 1 applic TP BID tube 09/18/17 This patient is new to me today: No Emergency Visit: Yes ED Registration Date: 09/05/17 Care time: The patient presented to the Emergency Department on the above date and was hospitalized for further evaluation of their emergent condition. Critical Care patient: No - Discharge Referral Referred to [facility] No
[2017-09-18 11:42] LABS: PLATELET COUNT 529 K/MM3 (134-434)
[2017-09-18 11:43] LABS: PLATELET ESTIMATE INCREASED
--- NOTE | 2017-09-18 11:50 | PN ---
Teaching Attending Note Name of Resident: Marshall Bhakta ATTENDING PHYSICIAN STATEMENT I saw and evaluated the patient. I reviewed the resident's note and discussed the case with the resident. I agree with the resident's findings and plan as documented. SUBJECTIVE: comfortable, will send the patient back; OBJECTIVE: Vital Signs Temperature 99 F 09/18/17 05:41 Pulse Rate 122 H 09/18/17 05:41 Respiratory Rate 20 09/18/17 05:41 Blood Pressure 116/66 09/18/17 05:41 O2 Sat by Pulse Oximetry (%) 99 09/17/17 21:00 CBCD WBC 11.9 K/mm3 (4.0-10.0) H 09/18/17 08:10 RBC 3.78 M/mm3 (4.00-5.60) L 09/18/17 08:10 Hgb 12.4 GM/dL (11.7-16.9) 09/18/17 08:10 Hct 38.0 % (35.4-49) 09/18/17 08:10 MCV 100.6 fl (80-96) H 09/18/17 08:10 MCHC 32.7 g/dl (32.0-35.9) 09/18/17 08:10 RDW 15.3 % (11.9-15.9) 09/18/17 08:10 Plt Count 529 K/MM3 (134-434) H 09/18/17 08:10 MPV 8.9 fl (7.5-11.1) D 09/18/17 08:10 CMP Sodium 139 mmol/L (136-145) 09/18/17 08:10 Potassium 4.5 mmol/L (3.5-5.1) 09/18/17 08:10 Chloride 102 mmol/L (98-107) 09/18/17 08:10 Carbon Dioxide 25 mmol/L (21-32) 09/18/17 08:10 Anion Gap 12 (8-16) 09/18/17 08:10 BUN 7 mg/dL (7-18) 09/18/17 08:10 Creatinine 0.4 mg/dL (0.7-1.3) L 09/18/17 08:10 Creat Clearance w eGFR > 60 (>60) 09/18/17 08:10 Random Glucose 99 mg/dL (74-106) 09/18/17 08:10 Calcium 9.3 mg/dL (8.5-10.1) 09/18/17 08:10 Total Bilirubin 0.5 mg/dL (0.2-1.0) 09/18/17 08:10 AST 36 U/L (15-37) D 09/18/17 08:10 ALT 47 U/L (12-78) 09/18/17 08:10 Alkaline Phosphatase 135 U/L (45-117) H 09/18/17 08:10 Total Protein 8.5 g/dl (6.4-8.2) H 09/18/17 08:10 Albumin 3.7 g/dl (3.4-5.0) 09/18/17 08:10 CARDIAC ENZYMES Creatine Kinase 155 IU/L (39-308) 09/04/17 20:15 Troponin I < 0.02 ng/ml (0.00-0.05) 09/04/17 20:15 Current Medications Generic Name Dose Route Start Last Admin Trade Name Lazaro PRN Reason Stop Dose Admin Acetaminophen 750 mg 09/11/17 07:00 09/11/17 13:46 Ofirmev Injection - IVPB 750 mg Q6H PRN Administration FEVER Acetaminophen 650 mg 09/13/17 15:27 09/16/17 22:13 Tylenol Oral Solution - GT 650 mg Q6H PRN Administration FEVER Albuterol/Ipratropium 1 amp 09/08/17 08:59 09/18/17 08:07 Duoneb - NEB 1 amp RQID AUNG Administration Diazepam 2 mg 09/15/17 22:00 09/18/17 05:40 Valium - PO 2 mg TID AUNG Administration Heparin Sodium (Porcine) 5,000 unit 09/06/17 14:00 09/18/17 05:38 Heparin - SQ 5,000 unit TID AUNG Administration Lacosamide 50 mg 09/15/17 22:00 09/18/17 09:48 Vimpat Liquid - GT 50 mg BID AUNG Administration Levetiracetam 1,700 mg 09/08/17 22:00 09/17/17 23:24 Keppra Oral Solution - GT 1,700 mg HS AUNG Administration Levetiracetam 1,500 mg 09/09/17 07:00 09/18/17 06:38 Keppra Oral Solution - GT 1,500 mg AM AUNG Administration Montelukast Sodium 5 mg 09/08/17 22:00 09/17/17 23:23 Singulair - GT 5 mg HS AUNG Administration Multi-Ingredient Ointment 1 applic 09/14/17 18:00 09/18/17 09:48 Zinc Oxide TP 1 applic BID AUNG Administration Ondansetron HCl 4 mg 09/10/17 09:07 09/10/17 09:18 Zofran Injection IVPUSH 4 mg Q6H PRN Administration NAUSEA Phenobarbital 20 mg 09/16/17 10:00 09/18/17 09:48 Phenobarbital Liquid - GT 20 mg DAILY AUNG Administration Scopolamine HBr 1 patch 09/06/17 23:30 09/17/17 00:49 Transderm-Scop - TD 1 patch Q48H AUNG Administration Vancomycin HCl 125 mg 09/15/17 18:00 09/18/17 05:39 Vancomycin Oral Solution PEG 125 mg Q6HPO AUNG Administration Home Medications Medication Instructions Recorded Albuterol 0.083% Nebulizer Martha 1 neb NEB QID PRN 12/03/16 [Ventolin 0.083% Nebulizer Soln -] Clobetasol Propionate/Emoll 15 gm TP DAILY 12/03/16 [Clobetasol Emollient 0.05% Crm] Diazepam 2 mg PO TID 12/03/16 Gabapentin 400 mg PO BID 12/03/16 Glycopyrrolate in Water/Pf 1 mg IV BID 12/03/16 [Glycopyrrolate 1 mg/5 ml-Water] Lacosamide [Vimpat -] 50 mg PO BID 12/03/16 Montelukast Na [Singulair -] 5 mg PO HS 12/03/16 Phenobarbital 20 mg GT DAILY 12/03/16 Scopolamine [Transderm-Scop] 1 each TD Q2D 12/03/16 Albuterol 2.5/Ipratropium 0.5 1 neb IH QID 09/04/17 [Duoneb -] Lactulose [Cephulac -] 30 ml GT DAILY 09/04/17 Levetiracetam [Keppra Oral 1,500 mg GT DAILY 09/04/17 Solution -] Levetiracetam [Keppra Oral 1,700 mg GT HS 09/04/17 Solution -] Lacosamide Liquid [Vimpat Liquid -] 50 mg GT BID cup MDD 100 mg 09/18/17 Vancomycin Oral Solution 125 mg PEG Q6HPO ml 09/18/17 Zinc Oxide 1 applic TP BID tube 09/18/17 ASSESSMENT AND PLAN: 22 y/o man with h/o MR, cerebral palsy, Seizure and other medical problems who presented with fever. #s/p sepsis , RESOLVED . CT of abd with no abscess , US of legs with no DVT ,+ c diff Ag , despite no diarrhea , with worsening leukocytosis continue vancomycin orally for cdiff #Cdiff continue IV antibiotics # Seizure disorder, cont meds G-tube studies were done: is functional continue use.
[2017-09-18 15:06] VITALS: BP 123/73; PULSE 113; TEMP 98.3
== END 2017-09-18 13:59 | DRG 710 ==
LOC: JER 19:07 → JERBED 09-05 02:43 → UNDOADMIN 09-05 02:50 → JERBED 09-05 02:50 → J6S 09-05 05:26 → J4S 09-05 16:37 → J5S 09-11 04:35 → J4S 09-14 15:48
PROVIDERS: ADMIT Internal Medicine; ATTEND Internal Medicine
PROC: 0WJG0ZZ Inspection of Peritoneal Cavity, Open Approach (ICD-10-PCS; 2017-09-05)
PROC: 30233K1 Transfusion of Nonautologous Frozen Plasma into Peripheral Vein, Percutaneous Approach (ICD-10-PCS; 2017-09-05)
PROC: 3E0G76Z Introduction of Nutritional Substance into Upper GI, Via Natural or Artificial Opening (ICD-10-PCS; principal; 2017-09-05 08:32)
DX: A41.9 Sepsis, unspecified organism (principal); J69.0 Pneumonitis due to inhalation of food and vomit; H47.619 Cortical blindness, unspecified side of brain; G80.0 Spastic quadriplegic cerebral palsy; G40.802 Other epilepsy, not intractable, without status epilepticus; G47.33 Obstructive sleep apnea (adult) (pediatric); K21.9 Gastro-esophageal reflux disease without esophagitis; I10 Essential (primary) hypertension; H50.89 Other specified strabismus; M41.80 Other forms of scoliosis, site unspecified; J45.909 Unspecified asthma, uncomplicated; R00.0 Tachycardia, unspecified; Z93.1 Gastrostomy status; J98.11 Atelectasis; R50.82 Postprocedural fever; E87.6 Hypokalemia; D64.9 Anemia, unspecified; I95.89 Other hypotension; K59.39 Other megacolon
CPT/HCPCS: 36415; 36430; 71045-TC; 74018-TC; 74176-TC; 74177-TC; 80048; 80053; 81003; 81015; 82550; 82553; 82803; 83605; 83735; 84100; 84484; 85025; 85027; 85610; 85730; 86140; 86850; 86900; 86901; 87040; 87086; 87324; 87449; 87804; 93005; 93010; 93970-TC; 94640; 94760; 94761; 99284-25; J1644; P9017

== ENCOUNTER 2018-03-08 21:12 | Inpatient (IN) | payer OTHER ==
[2018-03-08] MEDS ORDERED: SODIUM CHLORIDE 0.9% 1000 ML INFUS.BAG IV STA (21:49)
--- NOTE | 2018-03-08 21:51 | PDOC ---
History of Present Illness - General Chief Complaint: Respiratory Distress Stated Complaint: RESPIRATORY DIFFICULTY Time Seen by Provider: 03/08/18 21:38 History Source: EMS, [facility] Records Exam Limitations: Other (nonverbal) - History of Present Illness Initial Comments: 03/08/18 21:45 This is a 23 YOM with h/o profound MR/DD, cerebral palsy, spastic quadriplegia, non-interactive at baseline, reactive airway disease, seizure disorder, constipation, and perforated viscous s/p laparotomy who was BIBA from [facility] for desaturations on room air. The house CARBIDE OPERATOR at [facility] reports that the patient was desaturating to 88% on RA, improved to only 89-90% on 5 LPM O2, crackles on auscultation with L>R. Vitals reported at [facility] are temp 95, SaO2 89%, BP 97/63, RR 24. His mother's phone # is [phone]. Past History - Past Medical History Allergies/Adverse Reactions: Allergies Allergy/AdvReac Type Severity Reaction Status Date / Time chloral hydrate Allergy Verified 03/08/18 21:39 piperacillin sodium Allergy Verified 03/08/18 21:39 [From Zosyn] tazobactam sodium Allergy Verified 03/08/18 21:39 [From Zosyn] Home Medications: Ambulatory Orders Albuterol 0.083% Nebulizer Martha [Ventolin 0.083% Nebulizer Soln -] 1 neb NEB QID PRN 12/03/16 Clobetasol Propionate/Emoll [Clobetasol Emollient 0.05% Crm] 15 gm TP DAILY 01/14 Diazepam 2 mg PO TID 12/03/16 Gabapentin 400 mg PO BID 12/03/16 Glycopyrrolate in Water/Pf [Glycopyrrolate 1 mg/5 ml-Water] 1 mg IV BID Lacosamide [Vimpat -] 50 mg PO BID 12/03/16 Montelukast Na [Singulair -] 5 mg PO HS 12/03/16 Phenobarbital 20 mg GT DAILY 12/03/16 Scopolamine [Transderm-Scop] 1 each TD Q2D 12/03/16 Albuterol 2.5/Ipratropium 0.5 [Duoneb -] 1 neb IH QID 09/04/17 Lactulose [Cephulac -] 30 ml GT DAILY 09/04/17 levETIRAcetam [Keppra Oral Solution -] 1,500 mg GT DAILY 09/04/17 levETIRAcetam [Keppra Oral Solution -] 1,700 mg GT HS 09/04/17 Lacosamide Liquid [Vimpat Liquid -] 50 mg GT BID cup MDD 100 mg 09/18/17 Vancomycin Oral Solution 125 mg PEG Q6HPO ml 09/18/17 Zinc Oxide 1 applic TP BID tube 09/18/17 Cardiac Disorders: Yes (BENIGN HTN) COPD: (OBSTRUCTIVE SLEEP APNEA) GI Disorders: Yes (GERD) HTN: Yes Seizures: Yes - Suicide/Smoking/Psychosocial Hx Smoking History: Never smoked Have you smoked in the past 12 months: No Information on smoking cessation initiated: No Hx Alcohol Use: No Drug/Substance Use Hx: No Substance Use Type: None Hx Substance Use Treatment: No Review of Systems - Review of Systems Able to Perform ROS?: No (nonverbal) *Physical Exam - Vital Signs Last Vital Signs Temp Pulse Resp BP Pulse Ox 96.2 F L 71 25 H 91/78 92 L 03/08/18 21:20 03/08/18 21:20 03/08/18 21:20 03/08/18 21:20 03/08/18 21:20 03/08/18 Rectal temp taken at 10:00pm and is 88 - Physical Exam General Appearance: Yes: Other (markedly cold and clammy and thus rectal temp taken and is 88; chronically ill appearing, not interactive, withdraws to pain, accompanied by caregiver). No: Apparent Distress HEENT: positive: EOMI, DREW, Other (small amount of dried blood bilateral nares) . negative: Scleral Icterus (R), Scleral Icterus (L), Nasal Congestion Neck: positive: Trachea midline, Supple. negative: Rigid Respiratory/Chest: positive: Crackles (diffuse marked crackles with L>R). negative: Rhonchi, Stridor, Wheezing Cardiovascular: positive: Regular Rhythm, Bradycardia (mild). negative: Edema, Murmur Gastrointestinal/Abdominal: positive: Soft, Decreased BS, Protuberent. negative : Tender, Organomegaly, Pulsatile Mass, Guarding Musculoskeletal: positive: Normal Inspection. negative: Decreased Range of Motion, Vertebral Tenderness Extremity: positive: Normal Capillary Refill, Normal Inspection, Normal Range of Motion, Other (contractures all extremities). negative: Tender, Cyanosis Integumentary: positive: Normal Color, Dry, Warm. negative: Erythema, Rash, Bruising Neurologic: positive: scratch finisher II-XII NML intact (grossly but patient does not follow commands or participate in exam), Respond to painful stimul, Other ( contractures BUE). negative: Facial Droop ED Treatment Course - LABORATORY CBC & Chemistry Diagram: 03/08/18 23:11 03/08/18 23:11 Medical Decision Making - Medical Decision Making Pt p/w SOB, cough, chest discomfort, and fever. Initial Vital Signs Temp Pulse Resp BP Pulse Ox 96.2 F L 71 25 H 91/78 92 L 03/08/18 21:20 03/08/18 21:20 03/08/18 21:20 03/08/18 21:20 03/08/18 21:20 Rectal temp at 10 pm 03/08/18 is 88; bear hugger applied and continuous rectal probe placed. Exam: Results as noted in "Physical Exam" section. DDX IBNLT: PNA, bronchitis, COPD, asthma exacerbation, CHF, other lung disease, viral URI (e.g. influenza), laryngitis, tracheitis, SBO, bowel perforation, PEG malfunction, cholecystitis, appendicitis, etc. W/U ordered: CXR EKG CBCD CMP Mg Phos Blood gas EKG CXR TX ordered: IVF Aztreonam Azithromycin EKG: Pending CXR: Pending Labs: Pending Patient's care is endorsed to Dr. Andrew at the end of my shift. *DC/Admit/Observation/Transfer Diagnosis at time of Disposition: Respiratory distress, Abdominal distention Sepsis Qualifiers: Sepsis type: sepsis due to unspecified organism Qualified Code(s): A41.9 - Sepsis, unspecified organism - Discharge Dispostion Condition at time of disposition: Critical Decision to Admit order: Yes - Referrals - Patient Instructions - Post Discharge Activity
[2018-03-08] MEDS ORDERED: ALBUTEROL SO4 2.5/IPRATROPIUM 0.5 INH SOL 3 ML VIAL.NEB. NEB ONE (22:53)
[2018-03-08] MEDS ORDERED: AZITHROMYCIN IVPB 500 MG in DEXTROSE 5%-WATER - 250 ML IVPB ONE (22:58)
[2018-03-08] MEDS ORDERED: AZTREONAM 1 GM VIAL (RESTRICTED TO ID) IVPB ONE (23:00)
[2018-03-08 23:28] LABS: BASO % 0.5 % (0-2.0); HEMATOCRIT 37.1 % (35.4-49); HEMOGLOBIN 12.4 GM/dL (11.7-16.9); LYMPH % 29.8 % (8-40); MCH 31.6 pg (25.7-33.7); MCHC 33.3 g/dl (32.0-35.9); MEAN CELL VOLUME 94.8 fl (80-96); MEAN PLT VOLUME 10.1 fl (7.5-11.1); MONO % 2.6 % (3.8-10.2); NEUT % 66.1 % (42.8-82.8); PLATELET COUNT 157 K/MM3 (134-434); RBC 3.92 M/mm3 (4.00-5.60); RDW 16.4 % (11.9-15.9); VENOUS PC02 63.2 mmHg (38-52); VENOUS PH 7.39 (7.32-7.42); VENOUS PO2 62.8 mmHg (28-48)
[2018-03-08 23:34] LABS: URINE APPEARANCE TURBID; URINE BILIRUBIN NEGATIVE (<2.0 mg/dL); URINE COLOR YELLOW; URINE GLUCOSE (UA) NEGATIVE (NEGATIVE); URINE KETONE NEGATIVE (NEGATIVE); URINE LEUK ESTERASE NEGATIVE (NEGATIVE); URINE NITRITE NEGATIVE (NEGATIVE); URINE PROTEIN NEGATIVE (NEGATIVE)
[2018-03-08 23:52] LABS: INR 1.39 (0.82-1.09); PROTHROMBIN TIME (PATIENT) 15.7 SEC (9.7-13.0)
[2018-03-08 23:54] LABS: ACTIVATED PTT 42.7 SECONDS (25.2-36.5)
[2018-03-09] LABS: ALBUMIN 2.6 g/dl (3.4-5.0); ANION GAP 10 (8-16); BILIRUBIN,TOTAL 0.2 mg/dL (0.2-1.0); BLOOD UREA NITROGEN 16 mg/dL (7-18); CALCIUM 9.5 mg/dL (8.5-10.1); CHLORIDE 101 mmol/L (98-107); CO2 34 mmol/L (21-32); CREATININE 0.3 mg/dL (0.7-1.3); GLUCOSE,RANDOM 50 mg/dL (74-106); SGPT/ALT 263 U/L (12-78); SODIUM 145 mmol/L (136-145); TOT PROT 6.7 g/dl (6.4-8.2)
[2018-03-09 00:03] LABS: ALK PHOS 458 U/L (45-117); POTASSIUM 3.4 mmol/L (3.5-5.1)
[2018-03-09 00:04] LABS: SGOT/AST 340 U/L (15-37)
--- NOTE | 2018-03-09 00:07 | PDOC ---
*Physical Exam - Vital Signs Last Vital Signs Temp Pulse Resp BP Pulse Ox 96.2 F L 71 25 H 91/78 92 L 03/08/18 21:20 03/08/18 21:20 03/08/18 21:20 03/08/18 21:20 03/08/18 21:20 ED Treatment Course - LABORATORY CBC & Chemistry Diagram: 03/08/18 23:11 03/08/18 23:11 - ADDITIONAL ORDERS Additional order review: Laboratory Results 03/08/18 03/08/18 03/08/18 23:11 23:11 23:11 VBG pH 7.39 POC VBG pCO2 63.2 H* D POC VBG pO2 62.8 H D Mixed VBG HCO3 37.1 H Sodium 145 Potassium 3.4 L D Chloride 101 Carbon Dioxide 34 H D Anion Gap 10 BUN 16 Creatinine 0.3 L Creat Clearance w eGFR > 60 Random Glucose 50 L D Calcium 9.5 Total Bilirubin 0.2 AST 340 H D ALT 263 H D Alkaline Phosphatase 458 H Creatine Kinase 317 H CK-MB (CK-2) 4.34 H Total Protein 6.7 Albumin 2.6 L Urine Color Urine Appearance Urine pH Ur Specific [place] Urine Protein Urine Glucose (UA) Urine Ketones Urine Blood Urine Nitrite Urine Bilirubin Urine Urobilinogen Ur Leukocyte Esterase Blood Type O POSITIVE Antibody Screen Negative 03/08/18 23:11 VBG pH POC VBG pCO2 POC VBG pO2 Mixed VBG HCO3 Sodium Potassium Chloride Carbon Dioxide Anion Gap BUN Creatinine Creat Clearance w eGFR Random Glucose Calcium Total Bilirubin AST ALT Alkaline Phosphatase Creatine Kinase CK-MB (CK-2) Total Protein Albumin Urine Color Yellow Urine Appearance Turbid Urine pH 8.0 Ur Specific [place] 1.015 Urine Protein Negative Urine Glucose (UA) Negative Urine Ketones Negative Urine Blood Negative Urine Nitrite Negative Urine Bilirubin Negative Urine Urobilinogen 2.0 Ur Leukocyte Esterase Negative Blood Type Antibody Screen 03/08/18 23:11 RBC 3.92 L MCV 94.8 MCHC 33.3 RDW 16.4 H MPV 10.1 D Neutrophils % 66.1 Lymphocytes % 29.8 Monocytes % 2.6 L Eosinophils % 1.0 Basophils % 0.5 - Medications Given in the ED: ED Medications Discontinued Medications Generic Name Dose Route Start Last Admin Trade Name Freq PRN Reason Stop Dose Admin Sodium Chloride 1,252 ml 03/08/18 21:49 03/08/18 23:17 Normal Saline - 30 ml/kg (1252 ml) 03/08/18 21:50 1,252 ml IV Administration ONCE STA Medical Decision Making - Medical Decision Making 03/09/18 00:06 The patient was signed out to me by Dr. Sierra. The patient is a 23M with a PMH of cerebral palsy with spastic quadripalegia had WILIAN with hypothermia and desatting to 88% on RA without improvement on O2. Initial recorded temp was 93, however, rectal temp was 88. Sat's have been 88% on 5L. Pt has 90's/70's BP's with fluids. Septic workup initiated. CXR pending with labs. 03/09/18 02:47 I have endorsed the pt to Dr. Montalvo and Dr. Stevens for admission to ICU. 03/09/18 03:20 Pt d/w ICU resident, Dr. Stevens, regarding CXR. Will add PO contrast to CTAP to evaluate enlarged colon. *DC/Admit/Observation/Transfer Diagnosis at time of Disposition: Respiratory distress Sepsis Qualifiers: Sepsis type: sepsis due to unspecified organism Qualified Code(s): A41.9 - Sepsis, unspecified organism - Discharge Dispostion Condition at time of disposition: Critical Decision to Admit order: Yes - Referrals - Patient Instructions - Post Discharge Activity
[2018-03-09] MEDS ORDERED: ALBUTEROL SO4 2.5/IPRATROPIUM 0.5 INH SOL 3 ML VIAL.NEB. NEB ONE (00:16)
[2018-03-09] MEDS ORDERED: AZITHROMYCIN IVPB 250 ML IVPB ONE (00:17)
--- NOTE | 2018-03-09 00:25 | PDOC ---
Attending Attestation - Resident Resident Name: Alicia Sierra - ED Attending Attestation I have performed the following: I have examined & evaluated the patient, The case was reviewed & discussed with the resident, I agree w/resident's findings & plan, Exceptions are as noted - HPI HPI: 03/09/18 00:24 23 yo male BIBA from [facility] for resp distress <Apurva Romero - Last Filed: 03/09/18 00:24> - HPI HPI: 03/09/18 00:39 The patient is a 23-year-old male with past medical history of cortical blindness, cerebral palsy, spastic quadriplegia, seizure disorder, reactive airway disease, YAKELIN, GERD, HTN, strabismus, and scoliosis presents to the emergency department via EMS from [place] in respiratory distress. The patient was hypoxic at 88% and hypothermic w/ rectal temperature of 88. Unable to obtain a complete ROS due to the patients mental status. Allergies: chloral hydrate, piperacillin sodium, and tazobactam sodium Social history: Surgical history: PCP: Dr. Bigg Aleman at [facility] [phone] - Physicial Exam PE: 03/09/18 00:39 GENERAL:(+) In respiratory distress (+) Hypoxic (+) Hypothermic w/ rectal temp of 88. Small frame. Nonambulatory, Nonverbal. Baseline blind. Well developed, well nourished. Awake and alert. HEENT: Normocephalic, atraumatic. PERRLA, EOMI. No conjunctival pallor. Sclera are non- icteric. Moist mucous membranes. Oropharynx is clear. NECK: Supple. Full ROM. No JVD. Carotid pulses 2+ and symmetric, without bruits. No thyromegaly. No lymphadenopathy. CARDIOVASCULAR: Regular rate and rhythm. No murmurs, rubs, or gallops. Distal pulses are 2+ and symmetric. PULMONARY: Rhonchorous breath sounds, w/ scattered wheezing. Lungs clear to auscultation bilaterally. No rales ABDOMINAL:(+) Protuberant belly. G tube peg in place. Soft. Non-tender. No rebound or guarding. No organomegaly. Normoactive bowel sounds. MUSCULOSKELETAL Normal range of motion at all joints. No bony deformities or tenderness. No CVA tenderness. EXTREMITIES: No cyanosis. No clubbing. No edema. No calf tenderness. SKIN: No cellulitis. Warm and dry. Normal capillary refill. No rashes. No jaundice. NEUROLOGICAL: Alert, awake, appropriate. Cranial nerves 2-12 intact. No deficits to light touch and temperature in face, upper extremities and lower extremities. No motor deficits in the in face, upper extremities and lower extremities. Normoreflexic in the upper and lower extremities. Normal speech. Toes are down- going bilaterally. Gait is normal without ataxia. PSYCHIATRIC: Cooperative. Good eye contact. Appropriate mood and affect. - Medical Decision Making 03/09/18 00:40 Documentation prepared by Frida Moss, acting as medical logistics specialist for Apurva Romero MD. <Frida Moss - Last Filed: 03/09/18 00:40>
[2018-03-09] MEDS ORDERED: DEXTROSE 50%-WATER - 25 GM/50 ML VIAL IVPUSH ONE (01:51)
[2018-03-09] MEDS ORDERED: CIPROFLOXACIN 400 MG/D5W 400 MG/200 ML IVPB IVPB ONE (01:53)
[2018-03-09] MEDS ORDERED: DEXTROSE 50%-WATER 25 GM/50 ML DISP.SYRIN ONE (02:00)
--- NOTE | 2018-03-09 04:29 | PN ---
Teaching Attending Note Name of Resident: Donis Rodríguez ATTENDING PHYSICIAN STATEMENT I saw and evaluated the patient. I reviewed the resident's note and discussed the case with the resident. I agree with the resident's findings and plan as documented. SUBJECTIVE: Patient is a 23 year old man with history of profound MR/DD, cerebral palsy, spastic quadriplegia, non-interactive at baseline, reactive airway disease, seizure disorder, constipation, and perforated viscous s/p laparotomy who was BIBA from [place] for desaturations on room air. The house DESIGN AGENT at [facility] reports that the patient was desaturating to 88% on RA, improved to only 89-90% on 5 LPM O2, crackles on auscultation with L>R. Vitals reported at [facility] are temp 95, SaO2 89%, BP 97/63, RR 24. In the ER he was bradycardic hypothermic, hypoxic and had watery diarrhea. He was started on warming blanket, IV fluids, azithromycin and aztreonam. CT scan of he chest, abdomen and pelvis were ordered. OBJECTIVE: Awake and not in distress. Noninteractive. Vital Signs Period Temp Pulse Resp BP Sys/Jay Pulse Ox Last 24 Hr 96.2 F 71-87 18-25 91-100/65-78 90-92 HEENT: No Jaundice, eye redness or discharge, PERRLA. Normocephalic, atraumatic. External ears are normal. No nasal discharge - dry blood in the nose. Neck: Supple, nontender. No palpable adenopathy or thyromegaly. No JVD Chest: Good effort. Intermittent rhonchi. Poor air movement in both bases. Clear to percussion. Heart: Regular. No S3, rub or murmur Abdomen: Not distended, soft, nontender; PEG tube in place. No HSM. No rebound or guarding. Normoactive bowel sounds. Ext: Peripheral pulses intact. No leg edema. Skin: Warm and dry. No petechiae, rash or ecchymosis. Neuro: Awake. Nonverbal and noninteractive. Does not follow commands. Limb contractures. Quadriparesis Home Medications Medication Instructions Recorded Albuterol 0.083% Nebulizer Martha 1 neb NEB QID PRN 12/03/16 [Ventolin 0.083% Nebulizer Soln -] Clobetasol Propionate/Emoll 15 gm TP DAILY 12/03/16 [Clobetasol Emollient 0.05% Crm] Diazepam 2 mg PO TID 12/03/16 Gabapentin 400 mg PO BID 12/03/16 Glycopyrrolate in Water/Pf 1 mg IV BID 12/03/16 [Glycopyrrolate 1 mg/5 ml-Water] Lacosamide [Vimpat -] 50 mg PO BID 12/03/16 Montelukast Na [Singulair -] 5 mg PO HS 12/03/16 Phenobarbital 20 mg GT DAILY 12/03/16 Scopolamine [Transderm-Scop] 1 each TD Q2D 12/03/16 Albuterol 2.5/Ipratropium 0.5 1 neb IH QID 09/04/17 [Duoneb -] Lactulose [Cephulac -] 30 ml GT DAILY 09/04/17 levETIRAcetam [Keppra Oral 1,500 mg GT DAILY 09/04/17 Solution -] levETIRAcetam [Keppra Oral 1,700 mg GT HS 09/04/17 Solution -] Lacosamide Liquid [Vimpat Liquid -] 50 mg GT BID cup MDD 100 mg 09/18/17 Vancomycin Oral Solution 125 mg PEG Q6HPO ml 09/18/17 Zinc Oxide 1 applic TP BID tube 09/18/17 Abnormal Lab Results 03/08/18 03/08/18 03/08/18 23:11 23:11 23:11 RBC 3.92 L RDW 16.4 H Monocytes % 2.6 L PT with INR 15.70 H INR 1.39 H PTT (Actin FS) 42.7 H POC VBG pCO2 63.2 H* D POC VBG pO2 62.8 H D Mixed VBG HCO3 37.1 H Potassium Carbon Dioxide Creatinine Random Glucose AST ALT Alkaline Phosphatase Creatine Kinase CK-MB (CK-2) Albumin 03/08/18 23:11 RBC RDW Monocytes % PT with INR INR PTT (Actin FS) POC VBG pCO2 POC VBG pO2 Mixed VBG HCO3 Potassium 3.4 L D Carbon Dioxide 34 H D Creatinine 0.3 L Random Glucose 50 L D AST 340 H D ALT 263 H D Alkaline Phosphatase 458 H Creatine Kinase 317 H CK-MB (CK-2) 4.34 H Albumin 2.6 L ASSESSMENT AND PLAN: 1. Severe Sepsis due to Healthcare-associated ?Aspiration pneumonia - His CXR is poor quality and shows gaseous distension of the intestines below the diaphragm and haziness in the right upper lobe. CT scan will help clarify his chest pathology. During his last admission he was treated with Doripenem. We will give him azithromycin and aztreonam and consult ID. Continue IV NS. Elevated LFTs may be part of the sepsis syndrome - will await results of the abdomen CT scan before deciding next course of action. Trend LFTs and Consult GI. 2. Diarrhea - Etiology unclear. Lactulose is on his medication list. Will clarify from the NH whether he is still getting it. Also, patient appears to have been treated with oral vancomycin in 08/2017 - then stool C.Diff antigen was positive but the toxin was negative. Stool being sent for stool analyses including C.Diff toxin. Will add IV flagyl 500 mg tid pending results of stool analyses. 3. Hypokalemia - Likely due to stool losses and poor intake. Will check Mg+ level and give KCL via PEG. 4. Seizure disorder - Continue Keppra. 5. Hypoalbuminemia - Possibly due to combined effects of malnutrition and inflammation associated with comorbid chronic conditions. Will ensure adequate dietary protein intake and also consult algebra tutor. 6. DVT prophylaxis - Heparin 5000u sq tid. 7. Advance directives - Full code
[2018-03-09] MEDS ORDERED: DEXTROSE 5%-NORMAL SALINE 1,000 ML IV SCH (05:15)
[2018-03-09] MEDS ORDERED: AZTREONAM 2 GM in DEXTROSE 5%-WATER 100 ML IVPB SCH (05:45)
[2018-03-09] MEDS ORDERED: POTASSIUM CHLORIDE TABS 20 MEQ TABLET.ER (FP) PO SCH (06:00)
[2018-03-09] MEDS ORDERED: HEPARIN NA (PORCINE) 5,000 UNITS/ML 1ML VIAL ONE ×2 (06:09→08:06)
--- NOTE | 2018-03-09 06:19 | HP ---
CHIEF COMPLAINT: PCP: HISTORY OF PRESENT ILLNESS: Unable to obtain hx from Pt. Pt is non verbal. hx obtained from EMR chart review. Per Dr. Vora note: 03/08/18 21:45 This is a 23 YOM with h/o profound MR/DD, cerebral palsy, spastic quadriplegia, non-interactive at baseline, reactive airway disease, seizure disorder, constipation, and perforated viscous s/p laparotomy who was BIBA from [facility] for desaturations on room air. The house TELETYPE ADJUSTER at [facility] reports that the patient was desaturating to 88% on RA, improved to only 89-90% on 5 LPM O2, crackles on auscultation with L>R. Vitals reported at [facility] are temp 95, SaO2 89%, BP 97/63, RR 24. His mother's phone # is [phone]. ER course was notable for: (1)bradycardic hypothermic, hypoxic and had watery diarrhea. He was started on warming blanket, IV fluids, azithromycin and aztreonam. CT scan of he chest, abdomen and pelvis were ordered. (2) (3) Recent Travel: PAST MEDICAL HISTORY: PAST SURGICAL HISTORY: Social History: Smoking: Alcohol: Drugs: Family History: Allergies chloral hydrate Allergy (Verified 03/08/18 21:39) piperacillin sodium [From Zosyn] Allergy (Verified 03/08/18 21:39) tazobactam sodium [From Zosyn] Allergy (Verified 03/08/18 21:39) HOME MEDICATIONS: Home Medications Medication Instructions Recorded Albuterol 0.083% Nebulizer Martha 1 neb NEB QID PRN 12/03/16 [Ventolin 0.083% Nebulizer Soln -] Clobetasol Propionate/Emoll 15 gm TP DAILY 12/03/16 [Clobetasol Emollient 0.05% Crm] Diazepam 2 mg PO TID 12/03/16 Gabapentin 400 mg PO BID 12/03/16 Glycopyrrolate in Water/Pf 1 mg IV BID 12/03/16 [Glycopyrrolate 1 mg/5 ml-Water] Lacosamide [Vimpat -] 50 mg PO BID 12/03/16 Montelukast Na [Singulair -] 5 mg PO HS 12/03/16 Phenobarbital 20 mg GT DAILY 12/03/16 Scopolamine [Transderm-Scop] 1 each TD Q2D 12/03/16 Albuterol 2.5/Ipratropium 0.5 1 neb IH QID 09/04/17 [Duoneb -] Lactulose [Cephulac -] 30 ml GT DAILY 09/04/17 levETIRAcetam [Keppra Oral 1,500 mg GT DAILY 09/04/17 Solution -] levETIRAcetam [Keppra Oral 1,700 mg GT HS 09/04/17 Solution -] Lacosamide Liquid [Vimpat Liquid -] 50 mg GT BID cup MDD 100 mg 09/18/17 Vancomycin Oral Solution 125 mg PEG Q6HPO ml 09/18/17 Zinc Oxide 1 applic TP BID tube 09/18/17 REVIEW OF SYSTEMS unable to obtain PHYSICAL EXAMINATION Vital Signs - 24 hr 03/08/18 03/09/18 21:20 03:05 Temperature 96.2 F L Pulse Rate 71 Pulse Rate [ 87 Apical] Respiratory 25 H 18 Rate Blood Pressure 91/78 Blood Pressure 100/65 [Left Arm] O2 Sat by Pulse 92 L 90 L Oximetry (%) General: shane w/ yellow urine and NC 6 L 02 HEENT: No Jaundice, eye redness or discharge, PERRLA. NCAT. External ears are normal. No nasal discharge. Neck: Supple, nontender. No palpable adenopathy or thyromegaly. No JVD Chest: Good effort. Intermittent rhonchi. Poor air movement in both bases. Clear to percussion. wheezing Heart: RRR. S1 S2 No rub or murmur or gallops Abdomen: +BS NTND; PEG tube in place. No HSM. No rebound or guarding. Ext: Peripheral pulses intact. No leg edema. Skin: Warm and dry. No petechiae, rash or ecchymosis. Neuro: sleeping Nonverbal and noninteractive. Does not follow commands. Limb contractures. Quadriparesis Laboratory Results - last 24 hr 03/08/18 03/08/18 03/08/18 23:11 23:11 23:11 WBC 8.0 RBC 3.92 L Hgb 12.4 Hct 37.1 MCV 94.8 MCH 31.6 MCHC 33.3 RDW 16.4 H Plt Count 157 D MPV 10.1 D Absolute Neuts (auto) 5.3 Neutrophils % 66.1 Lymphocytes % 29.8 Monocytes % 2.6 L Eosinophils % 1.0 Basophils % 0.5 Nucleated RBC % 0 Platelet Comment Giant platelets PT with INR 15.70 H INR 1.39 H PTT (Actin FS) 42.7 H VBG pH POC VBG pCO2 POC VBG pO2 Mixed VBG HCO3 Sodium Potassium Chloride Carbon Dioxide Anion Gap BUN Creatinine Creat Clearance w eGFR Random Glucose Lactic Acid Calcium Total Bilirubin AST ALT Alkaline Phosphatase Creatine Kinase Creatine Kinase Index CK-MB (CK-2) Troponin I Total Protein Albumin Urine Color Yellow Urine Appearance Turbid Urine pH 8.0 Ur Specific Paxton 1.015 Urine Protein Negative Urine Glucose (UA) Negative Urine Ketones Negative Urine Blood Negative Urine Nitrite Negative Urine Bilirubin Negative Urine Urobilinogen 2.0 Ur Leukocyte Esterase Negative Blood Type Antibody Screen 03/08/18 03/08/18 03/08/18 23:11 23:11 23:11 WBC RBC Hgb Hct MCV MCH MCHC RDW Plt Count MPV Absolute Neuts (auto) Neutrophils % Lymphocytes % Monocytes % Eosinophils % Basophils % Nucleated RBC % Platelet Comment PT with INR INR PTT (Actin FS) VBG pH 7.39 POC VBG pCO2 63.2 H* D POC VBG pO2 62.8 H D Mixed VBG HCO3 37.1 H Sodium 145 Potassium 3.4 L D Chloride 101 Carbon Dioxide 34 H D Anion Gap 10 BUN 16 Creatinine 0.3 L Creat Clearance w eGFR > 60 Random Glucose 50 L D Lactic Acid 1.3 Calcium 9.5 Total Bilirubin 0.2 AST 340 H D ALT 263 H D Alkaline Phosphatase 458 H Creatine Kinase 317 H Creatine Kinase Index 1.4 CK-MB (CK-2) 4.34 H Troponin I Total Protein 6.7 Albumin 2.6 L Urine Color Urine Appearance Urine pH Ur Specific Paxton Urine Protein Urine Glucose (UA) Urine Ketones Urine Blood Urine Nitrite Urine Bilirubin Urine Urobilinogen Ur Leukocyte Esterase Blood Type Antibody Screen 03/08/18 03/08/18 03/08/18 23:11 23:11 23:11 WBC RBC Hgb Hct MCV MCH MCHC RDW Plt Count MPV Absolute Neuts (auto) Neutrophils % Lymphocytes % Monocytes % Eosinophils % Basophils % Nucleated RBC % Platelet Comment PT with INR INR PTT (Actin FS) VBG pH POC VBG pCO2 POC VBG pO2 Mixed VBG HCO3 Sodium Potassium Chloride Carbon Dioxide Anion Gap BUN Creatinine Creat Clearance w eGFR Random Glucose Lactic Acid Calcium Total Bilirubin AST ALT Alkaline Phosphatase Creatine Kinase Creatine Kinase Index CK-MB (CK-2) Troponin I < 0.02 Total Protein Albumin Urine Color Urine Appearance Urine pH Ur Specific Paxton Urine Protein Urine Glucose (UA) Urine Ketones Urine Blood Urine Nitrite Urine Bilirubin Urine Urobilinogen Ur Leukocyte Esterase Blood Type O POSITIVE O POSITIVE Antibody Screen Negative 03/08/18 23:11 WBC RBC Hgb Hct MCV MCH MCHC RDW Plt Count MPV Absolute Neuts (auto) Neutrophils % Lymphocytes % Monocytes % Eosinophils % Basophils % Nucleated RBC % Platelet Comment PT with INR INR PTT (Actin FS) VBG pH POC VBG pCO2 POC VBG pO2 Mixed VBG HCO3 Sodium Potassium Chloride Carbon Dioxide Anion Gap BUN Creatinine Creat Clearance w eGFR Random Glucose Lactic Acid Calcium Total Bilirubin AST ALT Alkaline Phosphatase Creatine Kinase Creatine Kinase Index CK-MB (CK-2) Cancelled Troponin I Total Protein Albumin Urine Color Urine Appearance Urine pH Ur Specific Paxton Urine Protein Urine Glucose (UA) Urine Ketones Urine Blood Urine Nitrite Urine Bilirubin Urine Urobilinogen Ur Leukocyte Esterase Blood Type Antibody Screen ASSESSMENT/PLAN: 23 y/o M with h/o profound MR/DD, cerebral palsy, spastic quadriplegia, non- interactive at baseline, reactive airway disease, seizure disorder, constipation , and perforated viscous s/p laparotomy who was BIBA from [facility] for respiratory failure. PE significant for hypothermia, hypotension, bradycardia and rhonci in lungs. CXR shows haziness in the right upper lobe. RF is likely 2/ 2 severe sepsis 2/2 HCAP #RF is likely 2/2 severe sepsis 2/2 HCAP - Aspiration pneumonia is a possibility - His CXR is poor quality and shows gaseous distension of the intestines below the diaphragm and haziness in the right upper lobe. CT scan will help clarify his chest pathology. During his last admission was tx with Doripenem. Elevated LFTs may be part of the sepsis syndrome - will await results of the abdomen CT scan before deciding next course of action. -tx w / azithromycin and aztreonam and consult ID. -c/w IV NS. -Trend LFTs, f/u CT scan and Consult GI. -f/u bcx, ucx #Diarrhea - Etiology unclear. Lactulose is on his medication list. Pt was given oral vancomycin in 08/2017 - then stool C.Diff antigen was positive but the toxin was negative -clarify from the NH whether he is still getting it. -Stool being sent for stool analyses including C.Diff toxin. -Will add IV flagyl 500 mg tid pending results of stool analyses. #Hypokalemia - Likely due to stool losses and poor intake. -check Mg+ level and give KCL 40meq PO TID via PEG. #Seizure disorder -Continue Keppra. #FEN -IV D5 NS 75cc/hr -K is low 3.4, will give 40meq PO TID -PEG feeds #DVT ppx -SQH 5000U tid #Dispo -admit to med surg -full code Visit type - Emergency Visit Emergency Visit: Yes ED Registration Date: 03/09/18 Care time: The patient presented to the Emergency Department on the above date and was hospitalized for further evaluation of their emergent condition. - New Patient This patient is new to me today: Yes Date on this admission: 03/09/18 - Critical Care Critical Care patient: No Hospitalist Screening - Colonoscopy Questionnaire Colonoscopy Questionnaire: Colonoscopy Questionnaire - Patient: 50 - 75 years old and never had a screening colonoscopy: Unknown History of colon or rectal polyps, or CA: Unknown History of IBD, Crohn's disease or UC: Unknown History of abdominal radiation therapy as a child: Unknown - Relative: 1 with colon or rectal CA, or polyps at age 60 or younger: Unknown Colon or rectal CA diagnosed at age 45 or younger: Unknown Multiple relatives with colon or rectal CA: Unknown - Outcome: Screening Result: Negative Screen
[2018-03-09] MEDS: POTASSIUM CHLORIDE ORAL LIQUID 20 MEQ/15 ML PO SCH ×3 (06:21→21:57)
[2018-03-09] MEDS: HEPARIN NA (PORCINE) 5,000 UNITS/ML 1ML VIAL SQ SCH ×2 (06:22→14:20)
[2018-03-09] MEDS ORDERED: diazePAM 2 MG TABLET ONE (08:05)
[2018-03-09] MEDS: diazePAM 2 MG TABLET PO SCH ×3 (08:27→21:58)
[2018-03-09] MEDS: SCOPOLAMINE HYDROBROMIDE 1 PATCH PATCH.TD72 TD SCH (10:35)
[2018-03-09] MEDS: GABAPENTIN 400 MG CAPSULE (FP) PO SCH ×2 (10:35→21:57)
[2018-03-09] MEDS: LACOSAMIDE 50 MG TABLET PO SCH ×2 (10:35→21:58)
[2018-03-09] MEDS ORDERED: PHENobarbital 20 MG/5 ML UNIT-DOSE CUP PO SCH (10:45)
[2018-03-09] MEDS ORDERED: PHENobarbital 20 MG/5 ML UNIT-DOSE CUP PEG SCH (10:55)
[2018-03-09] MEDS ORDERED: AZTREONAM 2 GM in DEXTROSE 5%-WATER 100 ML IVPB ONE (11:00)
[2018-03-09] MEDS ORDERED: PT OWN MED DRAWER 7, Y5N ONE ×4 (11:09→14:17)
[2018-03-09] MEDS: ALBUTEROL SO4 0.083% IH SOL 2.5 MG/3 ML VIAL.NEB. NEB PRN ×2 (11:12→20:52)
--- NOTE | 2018-03-09 12:01 | EKG ---
Test Reason : Blood Pressure : / mmHG Vent. Rate : 054 BPM Atrial Rate : 054 BPM P-R Int : 212 ms QRS Dur : 122 ms QT Int : 486 ms P-R-T Axes : 028 025 -12 degrees QTc Int : 460 ms SINUS BRADYCARDIA WITH 1ST DEGREE A-V BLOCK INFERIOR INFARCT (CITED ON OR BEFORE 03-DEC-2016) ABNORMAL ECG Confirmed by MD MARU, MARGRET ([id number]) on 03/09/2018 12:01:06 PM Referred By: Confirmed By:MARGRET MAHONEY MD
[2018-03-09] MEDS: PHENobarbital 20 MG/5 ML UNIT-DOSE CUP PEG SCH (12:45)
--- NOTE | 2018-03-09 13:02 | PN ---
Teaching Attending Note Name of Resident: Eric Gonzalez ATTENDING PHYSICIAN STATEMENT I saw and evaluated the patient. I reviewed the resident's note and discussed the case with the resident. I agree with the resident's findings and plan as documented. SUBJECTIVE: Pt seen and examined in the ICU. Briefly, 23 year old male with h/o cerebral palsy, mental retardation, seizure disorder, h/o perforated viscus s/p laparotomy who was sent from [place] for increased shortness of breath and hypoxia. Found to have bilateral infiltrates on CXR and CT chest, placed on NRB , started on antibiotics for pneumonia, transferred to the ICU for further monitoring. Pt unable to provide further history at this time. OBJECTIVE: Vital Signs Period Temp Pulse Resp BP Sys/Jay Pulse Ox Last 24 Hr 96.2 F-98.7 F 71-111 18-33 90-131/57-85 90-94 Intake & Output 03/06/18 03/07/18 03/08/18 03/09/18 23:59 23:59 23:59 23:59 Weight 41.73 kg Gen: nonverbal, tachypneic at rest Heart: tachycardic, regular Lung: bilateral rhonchi Abd: distended Ext: contracted, no edema CBC, BMP 03/08/18 23:11 03/08/18 23:11 Active Medications Albuterol Sulfate (Ventolin 0.083% Nebulizer Soln -) 1 amp NEB Q4H PRN PRN Reason: SHORT OF BREATH/WHEEZING Last Admin: 03/09/18 11:12 Dose: 1 amp Diazepam (Valium -) 2 mg PO TID [facility] Last Admin: 03/09/18 08:27 Dose: 2 mg Gabapentin (Neurontin -) 400 mg PO BID [facility] Last Admin: 03/09/18 10:35 Dose: 400 mg Heparin Sodium (Porcine) (Heparin -) 5,000 unit SQ TID [facility] Last Admin: 03/09/18 06:22 Dose: 5,000 unit Dextrose/Sodium Chloride (D5-Ns -) 1,000 mls @ 75 mls/hr IV ASDIR AUNG Azithromycin 500 mg/ Dextrose 250 mls @ 250 mls/hr IVPB DAILY [facility] Aztreonam 2 gm/ Dextrose 100 mls @ 100 mls/hr IVPB Q12H [facility]; Protocol Lacosamide (Vimpat -) 50 mg PO BID [facility] Last Admin: 03/09/18 10:35 Dose: 50 mg Levetiracetam (Keppra Oral Solution -) 1,500 mg PO DAILY [facility] Levetiracetam (Keppra Oral Solution -) 1,750 mg PO HS [facility] Montelukast Sodium (Singulair -) 5 mg PO HS [facility] Multi-Ingredient Ointment (Zinc Oxide) 1 applic TP BID [facility] Phenobarbital (Phenobarbital Liquid -) 20 mg PEG DAILY [facility] Last Admin: 03/09/18 12:45 Dose: 20 mg Potassium Chloride (Potassium Chloride Oral Liquid) 40 meq PO TID [facility] Last Admin: 03/09/18 06:21 Dose: 40 meq Scopolamine HBr (Transderm-Scop -) 1 patch TD Q48H [facility] Last Admin: 03/09/18 10:35 Dose: 1 patch ASSESSMENT AND PLAN: Acute Hypoxic Respiratory Failure Pneumonia likely Aspiration Severe Sepsis Elevated LFTs likely ischemic injury Abdominal Distention/Constipation Seizure Disorder Mental Retardation - continue antibiotics - f/u cultures - IVF - trend LFTs - rectal exam, disimpact if stool in vault - place G-tube to low wall suction - aspiration precautions - O2 to keep SpO2 >90% - high flow O2 if respiratory effort increases, not a candidate for BiPAP - continue antiepileptics - DVT prophylaxis - continue ICU monitoring critical care time spent in reviewing chart, evaluating patient and formulating plan 35 min
--- NOTE | 2018-03-09 13:15 | PN ---
Progress Note (short form) - Note Progress Note: ID Full note dictated Selected Entries 03/09/18 03/09/18 03/09/18 07:10 09:10 12:00 Temperature 98.2 F Pulse Rate 104 H Respiratory 33 H Rate O2 Sat by Pulse 94 L Oximetry (%) Oxygen Delivery Non-Rebreather Method Mask tachpneic congested Abd Distended ? tender Microbiology Laboratory Tests 03/08/18 03/08/18 03/08/18 23:11 23:11 23:11 WBC 8.0 Hgb 12.4 Hct 37.1 RDW 16.4 H Monocytes % 2.6 L INR 1.39 H Random Glucose 50 L D Lactic Acid Creatine Kinase 317 H 03/08/18 23:11 WBC Hgb Hct RDW Monocytes % INR Random Glucose Lactic Acid 1.3 Creatine Kinase Assessment Sepsis syndrome Bilateral infiltrates Respiratory failure S/P Exploratory lap pneumoperitoneum Aug 2017 Dr Cooley No perf found Elevated LFT ??? biliary source infection vs sepsis Zosyn allergy Plan [place] culture Liver sonogram if feasible given distention MRSA screening Vanco Cefepime Azithrmycin LGA CRP ESR Meggan SHIRLEY Problem List - Problems (1) Pneumonia Code(s): J18.9 - PNEUMONIA, UNSPECIFIED ORGANISM (2) Sepsis Code(s): A41.9 - SEPSIS, UNSPECIFIED ORGANISM Qualifiers: Sepsis type: sepsis due to unspecified organism Qualified Code(s): A41.9 - Sepsis, unspecified organism (3) Elevated LFTs Code(s): R94.5 - ABNORMAL RESULTS OF LIVER FUNCTION STUDIES (4) S/P exploratory laparotomy Code(s): Z98.890 - OTHER SPECIFIED POSTPROCEDURAL STATES
[2018-03-09] MEDS ORDERED: SODIUM CHLORIDE 1,000 ML IV SCH (13:30)
[2018-03-09] MEDS: levETIRAcetam 500 MG/5 ML ORAL SOLUTION (UNIT-DOSE CUPS) PO SCH ×2 (13:30→23:00)
[2018-03-09] MEDS: ZINC OXIDE 20% TOPICAL OINTMENT 30 GM TUBE TP SCH (14:12)
--- NOTE | 2018-03-09 14:19 | CONS ---
INFECTIOUS DISEASE CONSULTATION DATE OF CONSULTATION: 03/09/2018 This is a 23-year-old from the [facility] with known profound mental retardation, spastic quadriplegia, and cerebral palsy. He is brought to the hospital now noted to be short of breath and hypoxic in the facility with desaturation to 88%. He was given oxygen and subsequently transferred to the emergency room where he was noted to be both hypoxic and hypothermic. He was given intravenous fluids, a warming blanket, and given empiric antibiotics with azithromycin and aztreonam. There is a history of ZOSYN allergy according to the chart. The patient had been here in August 2017 with findings of pneumoperitoneum which prompted Dr. Cooley to take the patient to the operating room. At which time, no obvious perforation was found. Here, he had a CAT scan of both the abdomen and chest. The abdominal CT scan had no contrast IV or oral given and showed marked air and fluid distention of the entire colon without obstruction. Extensive bilateral consolidation was noted on his CAT scan. I am asked to see him for further evaluation. PAST MEDICAL HISTORY: As noted above. CURRENT MEDICATIONS: Include Neurontin, Vimpat, Keppra, phenobarbital, Singulair. ALLERGIES: PIPERACILLIN/TAZOBACTAM, . SOCIAL HISTORY: Resident of a long-term healthcare facility. Nonsmoker. No history of substance abuse. FAMILY HISTORY: Unobtainable. REVIEW OF SYSTEMS: Respiratory: Tachypnea. No cough. Hypoxemia. Cardiac: No history of congenital heart disease. Gastrointestinal: Abdominal distention noted. No vomiting. No diarrhea, blood per rectum, hematemesis. Genitourinary: Incontinent of urine. No gross hematuria. PHYSICAL EXAMINATION: General: A young male, nonverbal, in obvious respiratory distress. Vital Signs: With a respiratory rate of 33, pulse of 104, blood pressure 90/68, temperature 98.2. Lungs: Congested with bilateral rhonchi. Heart: S1, S2. Distant heart sounds appreciated. Abdomen: Positive bowel sounds. Distended. Difficult to assess for tenderness or rebound. Extremities: No clubbing, cyanosis, or edema. DIAGNOSTIC DATA: The white count is 8000, hemoglobin 12.4, platelets of 157. No left shift is present. BUN of 16, creatinine 0.3. AST 340, ALT 263, alkaline phosphatase 458. Lactic acid 1.3. Urinalysis screening: Negative leukocyte esterase. ASSESSMENT: This 23-year-old male presents with respiratory failure and bilateral pulmonary infiltrates. Notable findings include severe abdominal distention, possibly on the basis of severe constipation. This could have been a predisposing reason why he may have aspirated. He has had a history of an exploratory laparotomy in August; during which, no evidence of perforation was found to account for what had been described as a pneumoperitoneum. Currently, he has markedly elevated liver enzymes which possibly could be on the basis of sepsis. However, the alkaline phosphatase might argue toward another etiology including biliary tract disease. He has a PENICILLIN allergy apparently according to the chart. As discussed with Dr. Thayer/Critical Care, the patient will be hall cultured. Legionella urinary antigen will be ordered. An abdominal sonogram to try to further evaluate the liver and gallbladder has been ordered. CRP, ESR, and empiric therapy with vancomycin pending MRSA nares screening. Cefepime 2 g IV q.8 hours and metronidazole for aspiration and intraabdominal coverage. INTENSIVE CARE UNIT TIME SPENT: Thirty-eight minutes. MORGAN ROSAS M.D. [id number]
[2018-03-09] MEDS: VANCOMYCIN 750 MG in DEXTROSE 5%-WATER - 250 ML IVPB SCH (14:37)
--- NOTE | 2018-03-09 15:07 | CON.GI ---
Consult Consult Specialty:: GI: For Dr. Beck Referred by:: [facility] Reason for Consultation:: Abnormal liver chemistries - History of Present Illness Chief Complaint: Patient non-verbal. Admitted from [place] secondary to SOB History of Present Illness: 23M from [facility] admitted for evaluation of respiratory distress. Found to be hypoxic and have significant B/L Lower lobe consolidations as well as pleural effusions and left upper lobe infiltrate. Called to evaluate abnormal LFTs. Transaminases as well as alkaline phosphatase are elevated. in review of the [employer] system these were normal from at least 09/17. Also, asked to evaluate abdomional distention. CT scan revealed air filled dilated colon. In review of the [employer] system it appears as though multiple previous imaging studies have revealed varying degrees of colonic air distention. There are also reports of diarrhea in the ED. No BM currently. He was admitted on Lactulose as well as PO Vancomycin (? empiric treatment for C. Diff at the senior living). Patient is currently in the ICU on venti Mask O2 supplementation. - History Source History Provided By: Medical Record Limitations to Obtaining History: Other (Non-verbal) - Past Medical History Additional Medical History: Profound MR, spastic quadraplegia and cerbral palsy - Past Surgical History Additional Surgical History: ? surgery for bowel perforation in past, ? G-Tube placement - Alcohol/Substance Use Hx Alcohol Use: No History of Substance Use: reports: None - Smoking History Smoking history: Never smoked Have you smoked in the past 12 months: No - Social History Usual Living Arrangement: Care Home Place of : [facility] History of Recent Travel: No Home Medications - Allergies Allergies/Adverse Reactions: Allergies Allergy/AdvReac Type Severity Reaction Status Date / Time chloral hydrate Allergy Verified 03/08/18 21:39 piperacillin sodium Allergy Verified 03/08/18 21:39 [From Zosyn] tazobactam sodium Allergy Verified 03/08/18 21:39 [From Zosyn] - Home Medications Home Medications: Ambulatory Orders Albuterol 0.083% Nebulizer Martha [Ventolin 0.083% Nebulizer Soln -] 1 neb NEB QID PRN 12/03/16 Clobetasol Propionate/Emoll [Clobetasol Emollient 0.05% Crm] 15 gm TP DAILY 01/14 Diazepam 2 mg PO TID 04/05/17 Gabapentin 400 mg PO BID 12/03/16 Glycopyrrolate in Water/Pf [Glycopyrrolate 1 mg/5 ml-Water] 1 mg IV BID Lacosamide [Vimpat -] 50 mg PO BID 12/03/16 Montelukast Na [Singulair -] 5 mg PO HS 12/03/16 Phenobarbital 20 mg GT DAILY 12/03/16 Scopolamine [Transderm-Scop] 1 each TD Q2D 12/03/16 Albuterol 2.5/Ipratropium 0.5 [Duoneb -] 1 neb IH QID 09/04/17 Lactulose [Cephulac -] 30 ml GT DAILY 09/04/17 levETIRAcetam [Keppra Oral Solution -] 1,500 mg GT DAILY 09/04/17 levETIRAcetam [Keppra Oral Solution -] 1,700 mg GT HS 09/04/17 Lacosamide Liquid [Vimpat Liquid -] 50 mg GT BID cup MDD 100 mg 09/18/17 Vancomycin Oral Solution 125 mg PEG Q6HPO ml 09/18/17 Zinc Oxide 1 applic TP BID tube 09/18/17 Family Disease History - Family Disease History Other Family History: Unable to obtain Review of Systems Unable to obtain ROS, reason: patient non-verbal - Review of Systems Respiratory: reports: Cough, SOB Gastrointestinal: reports: Diarrhea Physical Exam-GI Vital Signs: Vital Signs Temperature 97.5 F L 03/09/18 14:00 Pulse Rate 95 H 03/09/18 14:00 Respiratory Rate 28 H 03/09/18 14:00 Blood Pressure 101/73 03/09/18 14:00 O2 Sat by Pulse Oximetry (%) 94 L 03/09/18 07:10 Constitutional: Yes: Other (Tachypnic) Eyes: No: Sclera Icterus Cardiovascular: Yes: Tachycardia. No: Murmur (Limited exam of hear sounds. Obscured by upper airway noise) Respiratory: Yes: Diminished (at bases, poor insp effort) Gastrointestinal Inspection: Yes: Scars (Midline vertical mid to upper abdominal surgical scar) ...Auscultate: Yes: Normoactive Bowel Sounds, Other (G-Tube in place in LUQ. There was a dressing under the external bolster. The dressing was removed and the external bolster was repositioned to be flush against the abdominal wall.) ...Palpate: No: Tenderness (No grimacing upon palpation) ...Percussion: Yes: Tympanitic ...Rectal Exam: Yes: Other (No external lesions, No masses palpated, small air young from digital rectal exam. Red rubber rectal tube placed with air sxpulsion as well as liquid yellow stool. Improvement in abdominal distention noted.) Edema: No (Contractures b/l UE/LE) Neurological: Yes: Other (Awake) Labs: CBC, BMP 03/08/18 23:11 03/08/18 23:11 INR 1.39 (0.82-1.09) H 03/08/18 23:11 Hepatic Panel Total Bilirubin 0.2 mg/dL (0.2-1.0) 03/08/18 23:11 AST 340 U/L (15-37) H D 03/08/18 23:11 ALT 263 U/L (12-78) H D 03/08/18 23:11 Alkaline Phosphatase 458 U/L (45-117) H 03/08/18 23:11 Albumin 2.6 g/dl (3.4-5.0) L 03/08/18 23:11 03/08/18 23:11 Creatine Kinase 317 H Imaging - Results Cat Scan: Report Reviewed, Image Reviewed Problem List - Problems (1) Elevated LFTs Assessment/Plan: Suspect multifactorial. Sepsis, reactive from RLL consolidation. given elevated CPK component of rhabdomyolysis could be contributing as well. No grimacing upon palpation in the RUQ to suggest biliary tract pathology. Gallbladder and biliary tract not easily visualized on CT scan given beam, artifact. Would recommend: - Abdominal US to assess liver, GB and biliary tract if feasible - Minimize hepatotoxic agents as feasible - Check Hepatitis A antibody, Hepatitis B surface antibody, hepatitis B surface antigen, hepatitis B core antibody IgM Code(s): R94.5 - ABNORMAL RESULTS OF LIVER FUNCTION STUDIES (2) Abdominal distention Assessment/Plan: From review of chart it appears that Mr. Zarate has a chronic colonic ileus, likely multifactorial: Limited mobility, pulmonary disease, psyh med regimen and he seems to be maintained on lactulose, which can contrbute to gaseous distention. Do not think this is toxic megacolon from severe CDAD. Advise: Not using lactulose as part of his bowel regimen Decompressed from rectal exam and rectal tube insertion. This can be done at the senior living on an as needed basis No need for decompression from G-Tube Aspiration precautions Code(s): R14.0 - ABDOMINAL DISTENSION (GASEOUS) (3) Diarrhea Assessment/Plan: Per ICU team called by lab: C. Diff +. Was admitted on PO vanco. Advised primary team to call [facility] to determine how long he has been on PO vanco while an outpatient Ordered Vancocin 125mg PO q 6 hrs. Would continue PO vancocin for 14 days and at least 1 week after antibiotics are discontinued Awaiting official report from stool study Code(s): R19.7 - DIARRHEA, UNSPECIFIED
[2018-03-09] MEDS: CEFEPIME 2 GM in DEXTROSE 5%-WATER 100 ML IVPB SCH (17:34)
--- NOTE | 2018-03-09 17:41 | PN ---
Teaching Attending Note Name of Resident: Maddie Clark ATTENDING PHYSICIAN STATEMENT I saw and evaluated the patient. I reviewed the resident's note and discussed the case with the resident. I agree with the resident's findings and plan as documented. SUBJECTIVE:mildly tacypnic OBJECTIVE: Last Vital Signs Temp Pulse Resp BP Pulse Ox 97.5 F L 89 29 H 97/62 94 L 03/09/18 14:00 03/09/18 16:00 03/09/18 16:00 03/09/18 16:00 03/09/18 07:10 General mildly tachypnic, nasal flaring CV S1 S2 RRR no murmur/rub/gallop lungs coarse breath sounds B/L Abdomen soft +distended. +dull to percussion Extremities contracted extremities ASSESSMENT AND PLAN: 23yo M from [place] with H cerebral palsy, mental retardation, functional quadriplegia was sent to the ER with acute hypoxic respiratory failure. was found to be 88% on RA which did not improve with nasal cannula and sent to the hospital. 1. Acute hypoxic respiratory failure- initially 87% on non-rebreather which improved to 91% and respiratory distress improved after deep suctioning which yieled copious thick white secretions.. likely due to B/L PNA. will treat current infection. perform frequent deep suctioning. chest PT. bring down supplemental oxygen as tolerated. pulmonary on board 2. Severe sepsis due to B/L PNA and suspected cdiff- hypothermic overnight and currently normothermic. trend lactate. received azithro and aztreonam in the ER.will d/w ID if should start prophylactic vanco po. was treated for cdiff in 2017. however no episode noted in the ICU. also on lactulose at [place] will need to call to determine when last dose was given. allergy to zosyn noted. ID consulted. contact precautions. f/u cx 3. Elevated LFT- liekly due to severe sepsis. will attempt to obtain abdominal u /s to further evaluate. nothing apprecaited on CT of abdomen. monitor 4. ileus- seen on CT. PEG to suction. less distended today. no bs appreciated. cont with current management. GI on board 5. MR 6. CP 7. epilepsy- no seizure like activity. on vimpat 8. DVT ppx- hep sq 9. MICU monitoring due to tenuous respiratory status. The care of this patient involved high complexity decision making to prevent further life threatening deterioration of the patient's condition and/or to evaluate & treat vital organ system(s) failure or risk of . 45 minutes
[2018-03-09] MEDS: VANCOMYCIN 250 MG/5 ML ORAL SOLUTION PO SCH (19:32)
--- NOTE | 2018-03-09 19:49 | PN ---
Physical Exam: SUBJECTIVE: Patient seen and examined today in icu. Pt is a 23 y/o M with pmh mr , cerebral palsy, quadriplegia, seizure disorder, constipation, as well as a perforated viscous s/p laparotomy. Brought to [facility] by ambulance after desaturating to 88% on room air at chronic care facility. OBJECTIVE: Vital Signs Period Temp Pulse Resp BP Sys/Jay Pulse Ox Last 24 Hr 96.2 F-98.7 F 71-111 18-33 90-131/57-85 90-94 Gen: nonverbal, tachypneic at rest Heart: Rapid rate, regualr rythm Lung: b/l rhonchi Abd: distended abdomen Ext: contracted Neuro- N/A Psych- N/a Laboratory Results - last 24 hr 03/08/18 03/08/18 03/08/18 23:11 23:11 23:11 WBC 8.0 RBC 3.92 L Hgb 12.4 Hct 37.1 MCV 94.8 MCH 31.6 MCHC 33.3 RDW 16.4 H Plt Count 157 D MPV 10.1 D Absolute Neuts (auto) 5.3 Neutrophils % 66.1 Lymphocytes % 29.8 Monocytes % 2.6 L Eosinophils % 1.0 Basophils % 0.5 Nucleated RBC % 0 Platelet Comment Giant platelets PT with INR 15.70 H INR 1.39 H PTT (Actin FS) 42.7 H VBG pH POC VBG pCO2 POC VBG pO2 Mixed VBG HCO3 Sodium Potassium Chloride Carbon Dioxide Anion Gap BUN Creatinine Creat Clearance w eGFR Random Glucose Lactic Acid Calcium Total Bilirubin AST ALT Alkaline Phosphatase Creatine Kinase Creatine Kinase Index CK-MB (CK-2) Troponin I C-Reactive Protein Total Protein Albumin Urine Color Yellow Urine Appearance Turbid Urine pH 8.0 Ur Specific Kincaid 1.015 Urine Protein Negative Urine Glucose (UA) Negative Urine Ketones Negative Urine Blood Negative Urine Nitrite Negative Urine Bilirubin Negative Urine Urobilinogen 2.0 Ur Leukocyte Esterase Negative Blood Type Antibody Screen 03/08/18 03/08/18 03/08/18 23:11 23:11 23:11 WBC RBC Hgb Hct MCV MCH MCHC RDW Plt Count MPV Absolute Neuts (auto) Neutrophils % Lymphocytes % Monocytes % Eosinophils % Basophils % Nucleated RBC % Platelet Comment PT with INR INR PTT (Actin FS) VBG pH 7.39 POC VBG pCO2 63.2 H* D POC VBG pO2 62.8 H D Mixed VBG HCO3 37.1 H Sodium 145 Potassium 3.4 L D Chloride 101 Carbon Dioxide 34 H D Anion Gap 10 BUN 16 Creatinine 0.3 L Creat Clearance w eGFR > 60 Random Glucose 50 L D Lactic Acid 1.3 Calcium 9.5 Total Bilirubin 0.2 AST 340 H D ALT 263 H D Alkaline Phosphatase 458 H Creatine Kinase 317 H Creatine Kinase Index 1.4 CK-MB (CK-2) 4.34 H Troponin I C-Reactive Protein Total Protein 6.7 Albumin 2.6 L Urine Color Urine Appearance Urine pH Ur Specific Kincaid Urine Protein Urine Glucose (UA) Urine Ketones Urine Blood Urine Nitrite Urine Bilirubin Urine Urobilinogen Ur Leukocyte Esterase Blood Type Antibody Screen 03/08/18 03/08/18 03/08/18 23:11 23:11 23:11 WBC RBC Hgb Hct MCV MCH MCHC RDW Plt Count MPV Absolute Neuts (auto) Neutrophils % Lymphocytes % Monocytes % Eosinophils % Basophils % Nucleated RBC % Platelet Comment PT with INR INR PTT (Actin FS) VBG pH POC VBG pCO2 POC VBG pO2 Mixed VBG HCO3 Sodium Potassium Chloride Carbon Dioxide Anion Gap BUN Creatinine Creat Clearance w eGFR Random Glucose Lactic Acid Calcium Total Bilirubin AST ALT Alkaline Phosphatase Creatine Kinase Creatine Kinase Index CK-MB (CK-2) Troponin I < 0.02 C-Reactive Protein Total Protein Albumin Urine Color Urine Appearance Urine pH Ur Specific Kincaid Urine Protein Urine Glucose (UA) Urine Ketones Urine Blood Urine Nitrite Urine Bilirubin Urine Urobilinogen Ur Leukocyte Esterase Blood Type O POSITIVE O POSITIVE Antibody Screen Negative 03/08/18 03/09/18 23:11 13:40 WBC RBC Hgb Hct MCV MCH MCHC RDW Plt Count MPV Absolute Neuts (auto) Neutrophils % Lymphocytes % Monocytes % Eosinophils % Basophils % Nucleated RBC % Platelet Comment PT with INR INR PTT (Actin FS) VBG pH POC VBG pCO2 POC VBG pO2 Mixed VBG HCO3 Sodium Potassium Chloride Carbon Dioxide Anion Gap BUN Creatinine Creat Clearance w eGFR Random Glucose Lactic Acid Calcium Total Bilirubin AST ALT Alkaline Phosphatase Creatine Kinase Creatine Kinase Index CK-MB (CK-2) Cancelled Troponin I C-Reactive Protein 14.0 H Total Protein Albumin Urine Color Urine Appearance Urine pH Ur Specific Kincaid Urine Protein Urine Glucose (UA) Urine Ketones Urine Blood Urine Nitrite Urine Bilirubin Urine Urobilinogen Ur Leukocyte Esterase Blood Type Antibody Screen Active Medications Generic Name Dose Route Start Last Admin Trade Name Freq PRN Reason Stop Dose Admin Albuterol Sulfate 1 amp 03/09/18 05:09 03/09/18 11:12 Ventolin 0.083% Nebulizer Soln - NEB 1 amp Q4H PRN Administration SHORT OF BREATH/WHEEZING Bacitracin/Polymyxin B Sulfate 1 applic 03/09/18 19:00 Polysporin Ointment - TP BID AUNG Diazepam 2 mg 03/09/18 06:45 03/09/18 14:20 Valium - PO 2 mg TID AUNG Administration Gabapentin 400 mg 03/09/18 10:00 03/09/18 10:35 Neurontin - PO 400 mg BID AUNG Administration Heparin Sodium (Porcine) 5,000 unit 03/09/18 06:15 03/09/18 14:20 Heparin - SQ 5,000 unit TID AUNG Administration Azithromycin 500 mg/ Dextrose 250 mls @ 250 mls/hr 03/09/18 18:00 IVPB DAILY AUNG Vancomycin HCl 750 mg/ 250 mls @ 250 mls/hr 03/09/18 14:00 03/09/18 14:37 Dextrose IVPB 250 mls/hr Q12H AUNG Administration Protocol Cefepime HCl 2 gm/ Dextrose 100 mls @ 200 mls/hr 03/09/18 18:00 03/09/18 17: 34 IVPB 200 mls/hr Q8H-IV AUNG Administration Protocol Metronidazole 500 mg in 100 mls @ 100 mls/hr 03/09/18 18:00 03/09/18 17:58 Flagyl 500mg Premixed Ivpb - IVPB 100 mls/hr Q8H-IV AUNG Administration Sodium Chloride 1,000 mls @ 42 mls/hr 03/09/18 13:30 03/09/18 16:30 Normal Saline - IV 42 mls/hr ASDIR AUNG Administration Lacosamide 50 mg 03/09/18 10:00 03/09/18 10:35 Vimpat - PO 50 mg BID AUNG Administration Levetiracetam 1,500 mg 03/09/18 10:00 03/09/18 13:30 Keppra Oral Solution - PO 1,500 mg DAILY AUNG Administration Levetiracetam 1,750 mg 03/09/18 22:00 Keppra Oral Solution - PO HS AUNG Montelukast Sodium 5 mg 03/09/18 22:00 Singulair - PO HS AUNG Multi-Ingredient Ointment 1 applic 03/09/18 10:00 03/09/18 14:12 Zinc Oxide TP Not Given BID AUNG Phenobarbital 20 mg 03/09/18 12:00 03/09/18 12:45 Phenobarbital Liquid - PEG 20 mg DAILY AUNG Administration Potassium Chloride 40 meq 03/09/18 06:00 03/09/18 14:20 Potassium Chloride Oral Liquid PO 40 meq TID AUNG Administration Saliva Substitute 1 applic 03/09/18 17:15 [place] Solution - MM DAILY AUNG Scopolamine HBr 1 patch 03/09/18 10:00 03/09/18 10:35 Transderm-Scop - TD 1 patch Q48H AUNG Administration Vancomycin HCl 125 mg 03/09/18 18:00 Vancomycin Oral Solution PO Q6HPO AUNG ASSESSMENT/PLAN: Pt is a 23 y/o M with pmh mr, cerebral palsy, quadriplegia, seizure disorder, constipation, as well as a perforated viscous s/p laparotomy. Acute Respiratory Failure 2/2 aspiration pneumonia - Chest CT today- extensive b/l pulmonary consolidation with poor aeration of lung ortiz, marked air and distension of large colon, no evidence of obstruction. Chest xray 03/08: scoliosis, weak inspiration with b/l effusions and infiltrates. - On nonrebreather, BIPAP not best for this patient considering functional status - Albuterol 1 amp neb, montelukast 5 mg po -Vanco Cefepime Azithrmycin ID + for C Diff antigen -Flagyl 500 mg Neuro Seizure d/o Keppra G.I Xray revealed dilation of colon, air distension. -Pt seen today by [facility] (Dr Navarrete). Rectal vault not impacted. Rectal tube inserted and pt decompressed. FEN NS Monitor Electrolytes NPO DVT ppx: Heparin 5,000 U SQ Dispo Continue to monitor in icu Visit type - Emergency Visit Emergency Visit: Yes ED Registration Date: 03/09/18 Care time: The patient presented to the Emergency Department on the above date and was hospitalized for further evaluation of their emergent condition. - New Patient This patient is new to me today: Yes Date on this admission: 03/09/18 - Critical Care Critical Care patient: Yes Total Critical Care Time (in minutes): 35 Critical Care Statement: The care of this patient involved high complexity decision making to prevent further life threatening deterioration of the patient 's condition and/or to evaluate & treat vital organ system(s) failure or risk of failure.
--- NOTE | 2018-03-09 20:36 | PN ---
Physical Exam: SUBJECTIVE: Patient seen and examined in ICU Bed. Patient non verbal, but eyes open and tachypnic breathing noted. Unable to perform review of systems. OBJECTIVE: Vital Signs Period Temp Pulse Resp BP Sys/Jay Pulse Ox Last 24 Hr 96.2 F-98.7 F 71-111 18-33 90-131/57-85 90-94 GENERAL: Awake, lying in bed, nonverbal LUNGS: Breath sounds equal, Rhonchi heard throughout, Accessory muscles used HEART: Regular rate and rhythm, S1, S2 without murmur, rub or gallop. ABDOMEN: Soft, distended, + bowel sounds EXTREMITIES: Contracted B/L Laboratory Results - last 24 hr 03/08/18 03/08/18 03/08/18 23:11 23:11 23:11 WBC 8.0 RBC 3.92 L Hgb 12.4 Hct 37.1 MCV 94.8 MCH 31.6 MCHC 33.3 RDW 16.4 H Plt Count 157 D MPV 10.1 D Absolute Neuts (auto) 5.3 Neutrophils % 66.1 Lymphocytes % 29.8 Monocytes % 2.6 L Eosinophils % 1.0 Basophils % 0.5 Nucleated RBC % 0 Platelet Comment Giant platelets PT with INR 15.70 H INR 1.39 H PTT (Actin FS) 42.7 H VBG pH POC VBG pCO2 POC VBG pO2 Mixed VBG HCO3 Sodium Potassium Chloride Carbon Dioxide Anion Gap BUN Creatinine Creat Clearance w eGFR Random Glucose Lactic Acid Calcium Total Bilirubin AST ALT Alkaline Phosphatase Creatine Kinase Creatine Kinase Index CK-MB (CK-2) Troponin I C-Reactive Protein Total Protein Albumin Urine Color Yellow Urine Appearance Turbid Urine pH 8.0 Ur Specific [place] 1.015 Urine Protein Negative Urine Glucose (UA) Negative Urine Ketones Negative Urine Blood Negative Urine Nitrite Negative Urine Bilirubin Negative Urine Urobilinogen 2.0 Ur Leukocyte Esterase Negative Blood Type Antibody Screen 03/08/18 03/08/18 03/08/18 23:11 23:11 23:11 WBC RBC Hgb Hct MCV MCH MCHC RDW Plt Count MPV Absolute Neuts (auto) Neutrophils % Lymphocytes % Monocytes % Eosinophils % Basophils % Nucleated RBC % Platelet Comment PT with INR INR PTT (Actin FS) VBG pH 7.39 POC VBG pCO2 63.2 H* D POC VBG pO2 62.8 H D Mixed VBG HCO3 37.1 H Sodium 145 Potassium 3.4 L D Chloride 101 Carbon Dioxide 34 H D Anion Gap 10 BUN 16 Creatinine 0.3 L Creat Clearance w eGFR > 60 Random Glucose 50 L D Lactic Acid 1.3 Calcium 9.5 Total Bilirubin 0.2 AST 340 H D ALT 263 H D Alkaline Phosphatase 458 H Creatine Kinase 317 H Creatine Kinase Index 1.4 CK-MB (CK-2) 4.34 H Troponin I C-Reactive Protein Total Protein 6.7 Albumin 2.6 L Urine Color Urine Appearance Urine pH Ur Specific [place] Urine Protein Urine Glucose (UA) Urine Ketones Urine Blood Urine Nitrite Urine Bilirubin Urine Urobilinogen Ur Leukocyte Esterase Blood Type Antibody Screen 03/08/18 03/08/18 03/08/18 23:11 23:11 23:11 WBC RBC Hgb Hct MCV MCH MCHC RDW Plt Count MPV Absolute Neuts (auto) Neutrophils % Lymphocytes % Monocytes % Eosinophils % Basophils % Nucleated RBC % Platelet Comment PT with INR INR PTT (Actin FS) VBG pH POC VBG pCO2 POC VBG pO2 Mixed VBG HCO3 Sodium Potassium Chloride Carbon Dioxide Anion Gap BUN Creatinine Creat Clearance w eGFR Random Glucose Lactic Acid Calcium Total Bilirubin AST ALT Alkaline Phosphatase Creatine Kinase Creatine Kinase Index CK-MB (CK-2) Troponin I < 0.02 C-Reactive Protein Total Protein Albumin Urine Color Urine Appearance Urine pH Ur Specific [place] Urine Protein Urine Glucose (UA) Urine Ketones Urine Blood Urine Nitrite Urine Bilirubin Urine Urobilinogen Ur Leukocyte Esterase Blood Type O POSITIVE O POSITIVE Antibody Screen Negative 03/08/18 03/09/18 23:11 13:40 WBC RBC Hgb Hct MCV MCH MCHC RDW Plt Count MPV Absolute Neuts (auto) Neutrophils % Lymphocytes % Monocytes % Eosinophils % Basophils % Nucleated RBC % Platelet Comment PT with INR INR PTT (Actin FS) VBG pH POC VBG pCO2 POC VBG pO2 Mixed VBG HCO3 Sodium Potassium Chloride Carbon Dioxide Anion Gap BUN Creatinine Creat Clearance w eGFR Random Glucose Lactic Acid Calcium Total Bilirubin AST ALT Alkaline Phosphatase Creatine Kinase Creatine Kinase Index CK-MB (CK-2) Cancelled Troponin I C-Reactive Protein 14.0 H Total Protein Albumin Urine Color Urine Appearance Urine pH Ur Specific [place] Urine Protein Urine Glucose (UA) Urine Ketones Urine Blood Urine Nitrite Urine Bilirubin Urine Urobilinogen Ur Leukocyte Esterase Blood Type Antibody Screen Microbiology 03/09/18 02:41 Stool Clostridium difficile Antigen (CHLOÉ) - Final 03/09/18 02:41 Stool Clostridium difficile Toxin Assay - Final Active Medications Albuterol Sulfate (Ventolin 0.083% Nebulizer Soln -) 1 amp NEB Q4H PRN PRN Reason: SHORT OF BREATH/WHEEZING Last Admin: 03/09/18 11:12 Dose: 1 amp Bacitracin/Polymyxin B Sulfate (Polysporin Ointment -) 1 applic TP BID [facility] Diazepam (Valium -) 2 mg PO TID [facility] Last Admin: 03/09/18 14:20 Dose: 2 mg Gabapentin (Neurontin -) 400 mg PO BID [facility] Last Admin: 03/09/18 10:35 Dose: 400 mg Heparin Sodium (Porcine) (Heparin -) 5,000 unit SQ TID [facility] Last Admin: 03/09/18 14:20 Dose: 5,000 unit Azithromycin 500 mg/ Dextrose 250 mls @ 250 mls/hr IVPB DAILY [facility] Vancomycin HCl 750 mg/ (Dextrose) 250 mls @ 250 mls/hr IVPB Q12H [facility]; Protocol Last Admin: 03/09/18 14:37 Dose: 250 mls/hr Cefepime HCl 2 gm/ Dextrose 100 mls @ 200 mls/hr IVPB Q8H-IV [facility]; Protocol Last Admin: 03/09/18 17:34 Dose: 200 mls/hr Metronidazole (Flagyl 500mg Premixed Ivpb -) 500 mg in 100 mls @ 100 mls/hr IVPB Q8H-IV [facility] Last Admin: 03/09/18 17:58 Dose: 100 mls/hr Sodium Chloride (Normal Saline -) 1,000 mls @ 42 mls/hr IV ASDIR [facility] Last Admin: 03/09/18 16:30 Dose: 42 mls/hr Lacosamide (Vimpat -) 50 mg PO BID [facility] Last Admin: 03/09/18 10:35 Dose: 50 mg Levetiracetam (Keppra Oral Solution -) 1,500 mg PO DAILY [facility] Last Admin: 03/09/18 13:30 Dose: 1,500 mg Levetiracetam (Keppra Oral Solution -) 1,750 mg PO HS [facility] Montelukast Sodium (Singulair -) 5 mg PO HS [facility] Multi-Ingredient Ointment (Zinc Oxide) 1 applic TP BID [facility] Last Admin: 03/09/18 14:12 Dose: Not Given Phenobarbital (Phenobarbital Liquid -) 20 mg PEG DAILY [facility] Last Admin: 03/09/18 12:45 Dose: 20 mg Potassium Chloride (Potassium Chloride Oral Liquid) 40 meq PO TID [facility] Last Admin: 03/09/18 14:20 Dose: 40 meq Saliva Substitute (Mouthkote Solution -) 1 applic MM DAILY [facility] Scopolamine HBr (Transderm-Scop -) 1 patch TD Q48H [facility] Last Admin: 03/09/18 10:35 Dose: 1 patch Vancomycin HCl (Vancomycin Oral Solution) 125 mg PO Q6HPO [facility] Last Admin: 03/09/18 19:32 Dose: 125 mg IMAGING - CXR: Imaging reveals scoliosis with extensive spinal support rods, weak inspiration with bilateral effusions, infiltrates and large heart. There is abdominal distention which is quite diffuse. The bones and soft tissues are intact. - CT Abdomen Pelvis: Extensive bilateral pulmonary consolidation with poor aeration of the lung ortiz. Marked air and fluid distention of the entire colon with no gross evidence of obstruction. Markedly limited study as described above. ASSESSMENT/PLAN: 23 y/o M resident of [place] with PMHx of profound developmental delay, cerebral palsy, functional quadriplegia, non-interactive at baseline, reactive airway disease, seizure disorder was admitted for Acute hypoxic respiratory failure. 1. Acute hypoxic respiratory failure - 88% Saturation did not improve on 5L via NC at [place] as per chart - Improved to >90% on Nonrebreather after deep suctioning - Consider Aspiration pneumonia - Chest physio therapy 2. Severe Sepsis - Likely due to HCAP - PE significant for hypothermia, hypotension, bradycardia and rhonci in lungs - Elevated LFTs may be part of the sepsis syndrome, Consider abdominal Ultrasount - Lactic Acid: 1.3 - Received Azithromycin and Aztreonam in the ED, Continue tx with Azithromycin, Cefepime, Metronidazole, Vancomycin - ID Consulted, appreciate rec's - GI Consulted, appreciate rec's 3. Diarrhea - Suspected C. Diff - Lactulose on home medication list; clarify from NH whether he is still getting it - Hx of stool C.Diff antigen positive but toxin negative--given oral vancomycin in 08/2017 - Continue with IV Metronidazole 4. Hypokalemia - Likely due to stool losses and poor intake. - Mag pending - Continue KCL 40meq PO TID 5. Seizure disorder - Continue Keppra 6. FEN - IV D5 NS - K is low 3.4, will give 40meq PO TID, repeat chemistries - Nutrition via PEG on hold, patient has an Ileus 7. DVT ppx - Heparin 5000U TID SQ 8. Dispo - ICU due to respiratory status Visit type - Emergency Visit Emergency Visit: Yes ED Registration Date: 03/09/18 Care time: The patient presented to the Emergency Department on the above date and was hospitalized for further evaluation of their emergent condition. - New Patient This patient is new to me today: Yes Date on this admission: 03/09/18 - Critical Care Critical Care patient: Yes Total Critical Care Time (in minutes): 45 Critical Care Statement: The care of this patient involved high complexity decision making to prevent further life threatening deterioration of the patient 's condition and/or to evaluate & treat vital organ system(s) failure or risk of failure.
[2018-03-09] MEDS: AZITHROMYCIN IVPB 500 MG in DEXTROSE 5%-WATER - 250 ML IVPB SCH (21:48)
[2018-03-09] MEDS: BACITRACIN/POLYMYXIN B SULFATE 15 GM TUBE TP SCH (21:49)
[2018-03-09] MEDS: LYTES/YERBA SANTA 240 ML BOTTLE MM SCH (21:49)
[2018-03-09] MEDS: MONTELUKAST NA 5 MG TAB.CHEW PO SCH (23:28)
[2018-03-10] MEDS: ALBUTEROL SO4 0.083% IH SOL 2.5 MG/3 ML VIAL.NEB. NEB PRN ×5 (00:41→17:45)
[2018-03-10] MEDS: VANCOMYCIN 750 MG in DEXTROSE 5%-WATER - 250 ML IVPB SCH ×2 (01:33→13:19)
[2018-03-10] MEDS: CEFEPIME 2 GM in DEXTROSE 5%-WATER 100 ML IVPB SCH ×3 (02:43→18:06)
[2018-03-10] MEDS: diazePAM 2 MG TABLET PO SCH ×3 (05:28→21:12)
[2018-03-10] MEDS: VANCOMYCIN 250 MG/5 ML ORAL SOLUTION PO SCH ×2 (05:28)
[2018-03-10] MEDS: BACITRACIN/POLYMYXIN B SULFATE 15 GM TUBE TP SCH ×3 (05:29→21:13)
[2018-03-10] MEDS: HEPARIN NA (PORCINE) 5,000 UNITS/ML 1ML VIAL SQ SCH ×4 (05:29→21:12)
[2018-03-10 06:23] LABS: BASO % 0.4 % (0-2.0); EOS % 0.5 % (0-4.5); HEMATOCRIT 32.9 % (35.4-49); LYMPH % 26.1 % (8-40); MCH 31.6 pg (25.7-33.7); MCHC 33.3 g/dl (32.0-35.9); MEAN CELL VOLUME 94.9 fl (80-96); MONO % 3.4 % (3.8-10.2); NEUT % 69.6 % (42.8-82.8); PLATELET COUNT 142 K/MM3 (134-434); RBC 3.47 M/mm3 (4.00-5.60); RDW 17.1 % (11.9-15.9); WHITE BLOOD COUNT 7.7 K/mm3 (4.0-10.0)
[2018-03-10 06:46] LABS: INR 1.58 (0.82-1.09); PROTHROMBIN TIME (PATIENT) 17.8 SEC (9.7-13.0)
[2018-03-10 06:48] LABS: ACTIVATED PTT 63.4 SECONDS (25.2-36.5)
[2018-03-10] MEDS: POTASSIUM CHLORIDE ORAL LIQUID 20 MEQ/15 ML PO SCH ×3 (06:48→21:12)
--- NOTE | 2018-03-10 07:19 | PN ---
Progress Note, Physician Chief Complaint: ID Tachpneic Vancomcyn metronidazole Cefepime Addition of oral vancomycin - Current Medication List Current Medications: Active Medications Albuterol Sulfate (Ventolin 0.083% Nebulizer Soln -) 1 amp NEB Q4H PRN PRN Reason: SHORT OF BREATH/WHEEZING Last Admin: 03/10/18 06:21 Dose: 1 amp Bacitracin/Polymyxin B Sulfate (Polysporin Ointment -) 1 applic TP BID [facility] Last Admin: 03/10/18 05:29 Dose: Not Given Diazepam (Valium -) 2 mg PO TID [facility] Last Admin: 03/10/18 05:28 Dose: 2 mg Gabapentin (Neurontin -) 400 mg PO BID [facility] Last Admin: 03/09/18 21:57 Dose: 400 mg Heparin Sodium (Porcine) (Heparin -) 5,000 unit SQ TID [facility] Last Admin: 03/10/18 05:29 Dose: 5,000 unit Azithromycin 500 mg/ Dextrose 250 mls @ 250 mls/hr IVPB DAILY [facility] Last Admin: 03/09/18 21:48 Dose: 250 mls/hr Vancomycin HCl 750 mg/ (Dextrose) 250 mls @ 250 mls/hr IVPB Q12H [facility]; Protocol Last Admin: 03/10/18 01:33 Dose: 250 mls/hr Cefepime HCl 2 gm/ Dextrose 100 mls @ 200 mls/hr IVPB Q8H-IV [facility]; Protocol Last Admin: 03/10/18 02:43 Dose: 200 mls/hr Metronidazole (Flagyl 500mg Premixed Ivpb -) 500 mg in 100 mls @ 100 mls/hr IVPB Q8H-IV [facility] Last Admin: 03/10/18 01:39 Dose: 100 mls/hr Sodium Chloride (Normal Saline -) 1,000 mls @ 42 mls/hr IV ASDIR [facility] Last Admin: 03/09/18 16:30 Dose: 42 mls/hr Lacosamide (Vimpat -) 50 mg PO BID [facility] Last Admin: 03/09/18 21:58 Dose: 50 mg Levetiracetam (Keppra Oral Solution -) 1,500 mg PO DAILY [facility] Last Admin: 03/09/18 13:30 Dose: 1,500 mg Levetiracetam (Keppra Oral Solution -) 1,750 mg PO HS [facility] Last Admin: 03/09/18 23:00 Dose: 1,750 mg Montelukast Sodium (Singulair -) 5 mg PO [facility] Last Admin: 03/09/18 23:28 Dose: 5 mg Multi-Ingredient Ointment (Zinc Oxide) 1 applic TP BID [facility] Last Admin: 03/10/18 00:00 Dose: 1 applic Phenobarbital (Phenobarbital Liquid -) 20 mg PEG DAILY [facility] Last Admin: 03/09/18 12:45 Dose: 20 mg Potassium Chloride (Potassium Chloride Oral Liquid) 40 meq PO TID [facility] Last Admin: 03/10/18 06:48 Dose: 40 meq Saliva Substitute (Mouthk[place] Solution -) 1 applic MM DAILY [facility] Last Admin: 03/09/18 21:49 Dose: 1 applic Scopolamine HBr (Transderm-Scop -) 1 patch TD Q48H [facility] Last Admin: 03/09/18 10:35 Dose: 1 patch Vancomycin HCl (Vancomycin Oral Solution) 125 mg PO Q6HPO [facility] Last Admin: 03/10/18 05:28 Dose: 125 mg - Objective Vital Signs: Vital Signs Temperature 98.0 F 03/10/18 06:14 Pulse Rate 94 H 03/10/18 06:14 Respiratory Rate 32 H 03/10/18 06:14 Blood Pressure 104/73 03/10/18 06:14 O2 Sat by Pulse Oximetry (%) 96 03/09/18 22:47 Constitutional: Yes: Other (tongue laceration) Cardiovascular: Yes: S1, S2 Respiratory: Yes: Rhonchi Gastrointestinal: Yes: Soft. No: Tenderness Edema: No Labs: INR, PTT INR 1.58 (0.82-1.09) H 03/10/18 05:30 Problem List - Problems (1) Pneumonia Code(s): J18.9 - PNEUMONIA, UNSPECIFIED ORGANISM (2) Sepsis Code(s): A41.9 - SEPSIS, UNSPECIFIED ORGANISM Qualifiers: Sepsis type: sepsis due to unspecified organism Qualified Code(s): A41.9 - Sepsis, unspecified organism (3) Elevated LFTs Code(s): R94.5 - ABNORMAL RESULTS OF LIVER FUNCTION STUDIES (4) S/P exploratory laparotomy Code(s): Z98.890 - OTHER SPECIFIED POSTPROCEDURAL STATES Assessment/Plan Microbiology 03/09/18 02:41 Stool Clostridium difficile Antigen (CHLOÉ) - Final 03/09/18 02:41 Stool Clostridium difficile Toxin Assay - Final 03/08/18 23:11 Blood - Peripheral Venous Blood Culture - Preliminary NO GROWTH OBTAINED AFTER 24 HOURS, INCUBATION TO CONTINUE FOR 4 DAYS. 03/08/18 23:11 Blood - Peripheral Venous Blood Culture - Preliminary NO GROWTH OBTAINED AFTER 24 HOURS, INCUBATION TO CONTINUE FOR 4 DAYS. Laboratory Tests 03/08/18 03/08/18 03/10/18 23:11 23:11 05:30 WBC 8.0 Pending Hgb Pending Hct Pending Plt Count Pending BUN 16 Creatinine 0.3 L Total Bilirubin AST 340 H D ALT Alkaline Phosphatase 03/10/18 05:30 WBC Hgb Hct Plt Count BUN Creatinine Total Bilirubin Pending AST Pending ALT Pending Alkaline Phosphatase Pending Assessment Respiratory failure Bilateral infiltrates unspecified C diff Ag positive Elevated LFTS unclear etiology Plan MRSA screening Moniter LFTs Await final cultures Treat for C diff Felix SHIRLEY
[2018-03-10 07:29] LABS: CHLORIDE 113 mmol/L (98-107); POTASSIUM 3.6 mmol/L (3.5-5.1); SODIUM 150 mmol/L (136-145)
[2018-03-10 07:50] LABS: ALBUMIN 2.6 g/dl (3.4-5.0); ALK PHOS 515 U/L (45-117); ANION GAP 9 (8-16); BILIRUBIN,TOTAL 0.7 mg/dL (0.2-1.0); BLOOD UREA NITROGEN 7 mg/dL (7-18); CALCIUM 8.1 mg/dL (8.5-10.1); CO2 28 mmol/L (21-32); CREATININE 0.4 mg/dL (0.7-1.3); GLUCOSE,RANDOM 63 mg/dL (74-106); PHOSPHOROUS 4.3 mg/dL (2.5-4.9); SGOT/AST 143 U/L (15-37); SGPT/ALT 207 U/L (12-78); TOT PROT 6.2 g/dl (6.4-8.2)
--- NOTE | 2018-03-10 08:23 | PN ---
Physical Exam: SUBJECTIVE: Patient seen and examined resting comfortably in ICU. Conitnues to have tachypnic breathing. Unable to perform ROS as patient is nonverbal. As per nursing, patient requires frequent suctioning with small amounts of blood mixed into the thick white secretions. No other acute events over night. OBJECTIVE: Vital Signs Period Temp Pulse Resp BP Sys/Jay Pulse Ox Last 24 Hr 97.3 F-98.8 F 88-111 22-44 88-107/53-85 96-98 GENERAL: Awake, sitting upright at a 40 degree angle, nonverbal LUNGS: Tachypneic, Breath sounds equal, Rhonchi present throughout, On Nonrebreather HEART: Regular rate and rhythm, S1, S2 without murmur, rub or gallop. ABDOMEN: Soft, less distended than yesterday, Hypoactive bowel sounds, PEG tube present in LUQ without bleeding, drainage or surrounding erythema EXTREMITIES: Upper extremities Contracted B/L Laboratory Results - last 24 hr 03/09/18 03/10/18 03/10/18 13:40 05:30 05:30 WBC 7.7 RBC 3.47 L Hgb 11.0 L Hct 32.9 L MCV 94.9 MCH 31.6 MCHC 33.3 RDW 17.1 H Plt Count 142 MPV 10.0 Absolute Neuts (auto) 5.4 Neutrophils % 69.6 Lymphocytes % 26.1 Monocytes % 3.4 L Eosinophils % 0.5 Basophils % 0.4 Nucleated RBC % 0 PT with INR 17.80 H INR 1.58 H PTT (Actin FS) 63.4 H D Sodium Potassium Chloride Carbon Dioxide Anion Gap BUN Creatinine Creat Clearance w eGFR Random Glucose Calcium Phosphorus Magnesium Total Bilirubin AST ALT Alkaline Phosphatase C-Reactive Protein 14.0 H Total Protein Albumin 03/10/18 05:30 WBC RBC Hgb Hct MCV MCH MCHC RDW Plt Count MPV Absolute Neuts (auto) Neutrophils % Lymphocytes % Monocytes % Eosinophils % Basophils % Nucleated RBC % PT with INR INR PTT (Actin FS) Sodium 150 H Potassium 3.6 Chloride 113 H D Carbon Dioxide 28 Anion Gap 9 BUN 7 Creatinine 0.4 L Creat Clearance w eGFR > 60 Random Glucose 63 L D Calcium 8.1 L Phosphorus 4.3 Magnesium 2.0 Total Bilirubin 0.7 AST 143 H D ALT 207 H D Alkaline Phosphatase 515 H D C-Reactive Protein Total Protein 6.2 L Albumin 2.6 L Microbiology 03/08/18 23:11 Blood - Peripheral Venous Blood Culture - Preliminary NO GROWTH OBTAINED AFTER 24 HOURS, INCUBATION TO CONTINUE FOR 4 DAYS. 03/08/18 23:11 Blood - Peripheral Venous Blood Culture - Preliminary NO GROWTH OBTAINED AFTER 24 HOURS, INCUBATION TO CONTINUE FOR 4 DAYS. 03/09/18 02:41 Stool Clostridium difficile Antigen (CHLOÉ) - Final 03/09/18 02:41 Stool Clostridium difficile Toxin Assay - Final Active Medications Albuterol Sulfate (Ventolin 0.083% Nebulizer Soln -) 1 amp NEB Q4H PRN PRN Reason: SHORT OF BREATH/WHEEZING Last Admin: 03/10/18 06:21 Dose: 1 amp Bacitracin/Polymyxin B Sulfate (Polysporin Ointment -) 1 applic TP BID [facility] Last Admin: 03/10/18 05:29 Dose: Not Given Diazepam (Valium -) 2 mg PO TID [facility] Last Admin: 03/10/18 05:28 Dose: 2 mg Gabapentin (Neurontin -) 400 mg PO BID [facility] Last Admin: 03/09/18 21:57 Dose: 400 mg Heparin Sodium (Porcine) (Heparin -) 5,000 unit SQ TID [facility] Last Admin: 03/10/18 05:29 Dose: 5,000 unit Azithromycin 500 mg/ Dextrose 250 mls @ 250 mls/hr IVPB DAILY [facility] Last Admin: 03/09/18 21:48 Dose: 250 mls/hr Vancomycin HCl 750 mg/ (Dextrose) 250 mls @ 250 mls/hr IVPB Q12H [facility]; Protocol Last Admin: 03/10/18 01:33 Dose: 250 mls/hr Cefepime HCl 2 gm/ Dextrose 100 mls @ 200 mls/hr IVPB Q8H-IV [facility]; Protocol Last Admin: 03/10/18 02:43 Dose: 200 mls/hr Metronidazole (Flagyl 500mg Premixed Ivpb -) 500 mg in 100 mls @ 100 mls/hr IVPB Q8H-IV [facility] Last Admin: 03/10/18 01:39 Dose: 100 mls/hr Dextrose (D5w -) 1,000 mls @ 42 mls/hr IV .[id number] [facility] Lacosamide (Vimpat -) 50 mg PO BID [facility] Last Admin: 03/09/18 21:58 Dose: 50 mg Levetiracetam (Keppra Oral Solution -) 1,500 mg PO DAILY [facility] Last Admin: 03/09/18 13:30 Dose: 1,500 mg Levetiracetam (Keppra Oral Solution -) 1,750 mg PO HS [facility] Last Admin: 03/09/18 23:00 Dose: 1,750 mg Montelukast Sodium (Singulair -) 5 mg PO HS [facility] Last Admin: 03/09/18 23:28 Dose: 5 mg Multi-Ingredient Ointment (Zinc Oxide) 1 applic TP BID [facility] Last Admin: 03/10/18 00:00 Dose: 1 applic Phenobarbital (Phenobarbital Liquid -) 20 mg PEG DAILY [facility] Last Admin: 03/09/18 12:45 Dose: 20 mg Potassium Chloride (Potassium Chloride Oral Liquid) 40 meq PO TID [facility] Last Admin: 03/10/18 06:48 Dose: 40 meq Saliva Substitute (Mouthk[place] Solution -) 1 applic MM DAILY [facility] Last Admin: 03/09/18 21:49 Dose: 1 applic Scopolamine HBr (Transderm-Scop -) 1 patch TD Q48H [facility] Last Admin: 03/09/18 10:35 Dose: 1 patch Vancomycin HCl (Vancomycin Oral Solution) 125 mg PO Q6HPO [facility] Last Admin: 03/10/18 05:28 Dose: 125 mg IMAGING - CXR: Imaging reveals scoliosis with extensive spinal support rods, weak inspiration with bilateral effusions, infiltrates and large heart. There is abdominal distention which is quite diffuse. The bones and soft tissues are intact. - CT Abdomen Pelvis: Extensive bilateral pulmonary consolidation with poor aeration of the lung ortiz. Marked air and fluid distention of the entire colon with no gross evidence of obstruction. Markedly limited study as described above. ASSESSMENT/PLAN: 23 y/o M resident of [place] with PMHx of profound developmental delay, cerebral palsy, functional quadriplegia, non-interactive at baseline, reactive airway disease, seizure disorder was admitted for Acute hypoxic respiratory failure. 1. Acute hypoxic respiratory failure - Tachypnic - 88% Saturation did not improve on 5L via NC at [place] as per chart - Improved to >90% on 100% Nonrebreather after deep suctioning - Consider Aspiration pneumonia - Chest physio therapy - Frequent deep suctioning - Pulmonology consulted, appreciate rec's 2. Severe Sepsis - Likely due to HCAP - PE significant for hypothermia, hypotension, bradycardia and rhonci in lungs - Lactic Acid: 1.3 - Received Azithromycin and Aztreonam in the ED, Continue tx with Azithromycin, Cefepime, Metronidazole, Vancomycin - ID Consulted, appreciate rec's - GI Consulted, appreciate rec's - Cultures pending 3. Diarrhea - Suspected C. Diff, Stool was positive for C. Diff antigen on this visit - Lactulose on home medication list; clarify from NH whether he is still getting it - Hx of stool C.Diff antigen positive but toxin negative--given oral vancomycin in 08/2017 - No loose stools since ICU Admission - Continue with IV Metronidazole 4. Hypokalemia - Likely due to stool losses and poor intake. - Mag pending - Continue KCL 40meq PO TID 5. HyperNatremia - Free water deficit 1.8L - Start D5w at 42cc 6. Hypoglycemia - Tube feeds can be resumed; previous dietary records show patient was on Vital 1.2, starting rate 25ml/hour, titration 10 ml Q8H, Goal 50 ml/hour, target volume 1200 ml - Continue BGM 7. Ileus - Seen on CT - PEG tube already in place to suction - Abdominal distension improved - Hypoactive bowel sounds - Albumin 2.6 - GI Consulted, can resume tube feeds 8. Acute transaminitis - Elevated LFTs may be part of the sepsis syndrome - Trending down - Consider abdominal Ultrasound - Hepatitis panel pending 9. Seizure disorder - Continue Keppra 10. FEN - IV D5 NS - K is low 3.4, will give 40meq PO TID, repeat chemistries - Nutrition via PEG on hold, patient has an Ileus 11. DVT ppx - Heparin 5000U TID SQ Dispo - ICU due to respiratory status Visit type - Emergency Visit Emergency Visit: Yes ED Registration Date: 03/09/18 Care time: The patient presented to the Emergency Department on the above date and was hospitalized for further evaluation of their emergent condition. - New Patient This patient is new to me today: No - Critical Care Critical Care patient: Yes Total Critical Care Time (in minutes): 55 Critical Care Statement: The care of this patient involved high complexity decision making to prevent further life threatening deterioration of the patient 's condition and/or to evaluate & treat vital organ system(s) failure or risk of failure.
[2018-03-10] MEDS ORDERED: AMIODARONE HCL 150 MG/3 ML VIAL ONE (09:07)
[2018-03-10] MEDS: AZITHROMYCIN IVPB 500 MG in DEXTROSE 5%-WATER - 250 ML IVPB SCH (09:59)
[2018-03-10] MEDS ORDERED: PT OWN MED DRAWER 7, Y5N ONE ×5 (10:26→22:38)
[2018-03-10] MEDS: DEXTROSE 5%-WATER - 1,000 ML IV SCH (10:29)
[2018-03-10] MEDS: PHENobarbital 20 MG/5 ML UNIT-DOSE CUP PEG SCH (10:35)
[2018-03-10] MEDS: GABAPENTIN 400 MG CAPSULE (FP) PO SCH ×2 (10:36→21:12)
[2018-03-10] MEDS: LACOSAMIDE 50 MG TABLET PO SCH ×2 (10:36→21:12)
[2018-03-10] MEDS: LYTES/YERBA SANTA 240 ML BOTTLE MM SCH (10:39)
[2018-03-10] MEDS: levETIRAcetam 500 MG/5 ML ORAL SOLUTION (UNIT-DOSE CUPS) PO SCH ×2 (10:40→21:17)
[2018-03-10] MEDS: ZINC OXIDE 20% TOPICAL OINTMENT 30 GM TUBE TP SCH ×3 (10:52→21:19)
--- NOTE | 2018-03-10 11:55 | PN ---
Teaching Attending Note Name of Resident: Eric Gonzalez ATTENDING PHYSICIAN STATEMENT I saw and evaluated the patient. I reviewed the resident's note and discussed the case with the resident. I agree with the resident's findings and plan as documented. SUBJECTIVE: Pt seen and examined in the ICU. Tachypneic with minimal movements. Remains on NRB. OBJECTIVE: Vital Signs Period Temp Pulse Resp BP Sys/Jay Pulse Ox Last 24 Hr 97.3 F-98.8 F 88-104 22-44 88-104/53-73 96-98 Intake & Output 03/07/18 03/08/18 03/09/18 03/10/18 23:59 23:59 23:59 23:59 Intake Total 250 804 Output Total 1350 300 Balance -1100 504 Weight 41.73 kg 41.957 kg Gen: tachypneic on NRB Heart: RRR Lung: bilateral rhonchi Abd: soft, nontender Ext: contracted, no edema CBC, BMP 03/10/18 05:30 03/10/18 05:30 Active Medications Albuterol Sulfate (Ventolin 0.083% Nebulizer Soln -) 1 amp NEB Q4H PRN PRN Reason: SHORT OF BREATH/WHEEZING Last Admin: 03/10/18 11:41 Dose: 1 amp Bacitracin/Polymyxin B Sulfate (Polysporin Ointment -) 1 applic TP BID [facility] Last Admin: 03/10/18 10:39 Dose: 1 applic Diazepam (Valium -) 2 mg PO TID AUNG Last Admin: 03/10/18 05:28 Dose: 2 mg Gabapentin (Neurontin -) 400 mg PO BID [facility] Last Admin: 03/10/18 10:36 Dose: 400 mg Heparin Sodium (Porcine) (Heparin -) 5,000 unit SQ TID AUNG Last Admin: 03/10/18 05:29 Dose: 5,000 unit Azithromycin 500 mg/ Dextrose 250 mls @ 250 mls/hr IVPB DAILY [facility]UNG Last Admin: 03/10/18 09:59 Dose: 250 mls/hr Vancomycin HCl 750 mg/ (Dextrose) 250 mls @ 250 mls/hr IVPB Q12H AUNG; Protocol Last Admin: 03/10/18 01:33 Dose: 250 mls/hr Cefepime HCl 2 gm/ Dextrose 100 mls @ 200 mls/hr IVPB Q8H-IV AUNG; Protocol Last Admin: 03/10/18 09:58 Dose: 200 mls/hr Metronidazole (Flagyl 500mg Premixed Ivpb -) 500 mg in 100 mls @ 100 mls/hr IVPB Q8H-IV AUNG Last Admin: 03/10/18 10:31 Dose: Not Given Dextrose (D5w -) 1,000 mls @ 42 mls/hr IV Q23H [facility]UNG Last Admin: 03/10/18 10:29 Dose: 42 mls/hr Lacosamide (Vimpat -) 50 mg PO BID [facility] Last Admin: 03/10/18 10:36 Dose: 50 mg Levetiracetam (Keppra Oral Solution -) 1,500 mg PO DAILY [facility] Last Admin: 03/10/18 10:40 Dose: 1,500 mg Levetiracetam (Keppra Oral Solution -) 1,750 mg PO HS [facility] Last Admin: 03/09/18 23:00 Dose: 1,750 mg Montelukast Sodium (Singulair -) 5 mg PO HS [facility] Last Admin: 03/09/18 23:28 Dose: 5 mg Multi-Ingredient Ointment (Zinc Oxide) 1 applic TP BID [facility] Last Admin: 03/10/18 10:52 Dose: 1 applic Phenobarbital (Phenobarbital Liquid -) 20 mg PEG DAILY [facility] Last Admin: 03/10/18 10:35 Dose: 20 mg Potassium Chloride (Potassium Chloride Oral Liquid) 40 meq PO TID [facility] Last Admin: 03/10/18 06:48 Dose: 40 meq Saliva Substitute (Mouthkote Solution -) 1 applic MM DAILY [facility] Last Admin: 03/10/18 10:39 Dose: 1 applic Scopolamine HBr (Transderm-Scop -) 1 patch TD Q48H [facility] Last Admin: 03/09/18 10:35 Dose: 1 patch Vancomycin HCl (Vancomycin Oral Solution) 125 mg PO Q6HPO [facility] Last Admin: 03/10/18 05:28 Dose: 125 mg ASSESSMENT AND PLAN: Acute Hypoxic Respiratory Failure Pneumonia likely Aspiration Severe Sepsis Elevated LFTs likely ischemic injury Abdominal Distention/Constipation Seizure Disorder Mental Retardation - continue antibiotics - f/u cultures - IVF - trend LFTs - aspiration precautions - O2 to keep SpO2 >90% - high flow O2 if respiratory effort increases, not a candidate for BiPAP - continue antiepileptics - DVT prophylaxis - continue ICU monitoring critical care time spent in reviewing chart, evaluating patient and formulating plan 35 min
--- NOTE | 2018-03-10 14:34 | PN ---
Teaching Attending Note Name of Resident: Maddie Clark ATTENDING PHYSICIAN STATEMENT I saw and evaluated the patient. I reviewed the resident's note and discussed the case with the resident. I agree with the resident's findings and plan as documented. SUBJECTIVE:tacypnic OBJECTIVE: Last Vital Signs Temp Pulse Resp BP Pulse Ox 97.7 F 98 H 37 H 113/83 96 03/10/18 12:00 03/10/18 10:00 03/10/18 12:00 03/10/18 12:00 03/10/18 09:00 Intake & Output 03/07/18 03/08/18 03/09/18 03/10/18 23:59 23:59 23:59 23:59 Intake Total 250 804 Output Total 1350 300 Balance -1100 504 Weight 92 lb 92 lb 8 oz General mildly tachypnic, not using accessory muscles CV S1 S2 RRR no murmur/rub/gallop lungs coarse breath sounds B/L Abdomen soft +distended. +dull to percussion, hypoactive BS +PEG LUQ in place. no drainage of bleeding noted Extremities contracted extremities ASSESSMENT AND PLAN: 23yo M from [place] with H cerebral palsy, mental retardation, functional quadriplegia was sent to the ER with acute hypoxic respiratory failure. was found to be 88% on RA which did not improve with nasal cannula and sent to the hospital. 1. Acute hypoxic respiratory failure- likely due to B/L PNA. currently 100% on non-rebreather. will titrate down supplemental oxygen as tolerated. remains tachypnic but appears more comfortable than yesterday. frequent deep suctioning. chest PT. pulmonary on board 2. Severe sepsis due to B/L PNA and suspected cdiff- clinically improved. cdiff ag +. no longer having loose stools here. abx swtiched to cefepime/azithro/ flagyl and vanco. ID consulted. contact precautions. f/u cx 3. Elevated LFT- liekly due to severe sepsis.u/s showing fatty infilration of liver. now trending down. hepatitis panel pending 4. hypernatremia- Free water deficit 1.79 L. will start D5w at 42cc/H. 5. hypoglycemia- tube feeds being held. will start D5 as above. cont with BGM monitoring to ensure staying stable 6. ileus- seen on CT. PEG to suction. less distended today. no bs appreciated. cont with current management. GI on board 7. MR 8. CP 9. epilepsy- no seizure like activity. on vimpat 10. DVT ppx- hep sq 11. MICU monitoring due to tenuous respiratory status. The care of this patient involved high complexity decision making to prevent further life threatening deterioration of the patient's condition and/or to evaluate & treat vital organ system(s) failure or risk of . 40 minutes
[2018-03-10] MEDS ORDERED: ACETYLCYSTEINE 20% 200MG/ML 4 ML VIAL *FOR ORAL / INH USE ONLY ONE (17:29)
--- NOTE | 2018-03-10 19:11 | PN ---
Physical Exam: SUBJECTIVE: Patient seen and examined today in icu. Pt remains tachypneic and is exhibiting nasal flaring and usage of accessory muscles for respiration. Pt sat dropped to upper 80's late afternoon. OBJECTIVE: Vital Signs Period Temp Pulse Resp BP Sys/Jay Pulse Ox Last 24 Hr 97.3 F-98.8 F 90-98 22-44 88-116/53-83 96-98 GENERAL: Uncomfortable, grunting HEAD: Normal with no signs of trauma. ENT: Tongue protrusion. Erythema of tongue. NECK: Flexing accessory mucles in neck LUNGS: Coarse rhonchi throughout HEART: -m/r/g, RRR ABDOMEN: Abdomen less distended. EXTREMITIES: small ulcer on ring finger left hand. Extremities contracted. SKIN: Warm, dry, normal turgor, no rashes or lesions noted Laboratory Results - last 24 hr 03/10/18 03/10/18 03/10/18 05:30 05:30 05:30 WBC 7.7 RBC 3.47 L Hgb 11.0 L Hct 32.9 L MCV 94.9 MCH 31.6 MCHC 33.3 RDW 17.1 H Plt Count 142 MPV 10.0 Absolute Neuts (auto) 5.4 Neutrophils % 69.6 Lymphocytes % 26.1 Monocytes % 3.4 L Eosinophils % 0.5 Basophils % 0.4 Nucleated RBC % 0 ESR PT with INR 17.80 H INR 1.58 H PTT (Actin FS) 63.4 H D Sodium 150 H Potassium 3.6 Chloride 113 H D Carbon Dioxide 28 Anion Gap 9 BUN 7 Creatinine 0.4 L Creat Clearance w eGFR > 60 Random Glucose 63 L D Calcium 8.1 L Phosphorus 4.3 Magnesium 2.0 Total Bilirubin 0.7 AST 143 H D ALT 207 H D Alkaline Phosphatase 515 H D Total Protein 6.2 L Albumin 2.6 L 03/10/18 06:30 WBC RBC Hgb Hct MCV MCH MCHC RDW Plt Count MPV Absolute Neuts (auto) Neutrophils % Lymphocytes % Monocytes % Eosinophils % Basophils % Nucleated RBC % ESR 58 H PT with INR INR PTT (Actin FS) Sodium Potassium Chloride Carbon Dioxide Anion Gap BUN Creatinine Creat Clearance w eGFR Random Glucose Calcium Phosphorus Magnesium Total Bilirubin AST ALT Alkaline Phosphatase Total Protein Albumin Active Medications Generic Name Dose Route Start Last Admin Trade Name Freq PRN Reason Stop Dose Admin Acetylcysteine 200 mg 03/10/18 21:00 Mucomyst 20 Oral / Inh Use Only* NEB 03/10/18 21:01 ONCE ONE Albuterol Sulfate 1 amp 03/09/18 05:09 03/10/18 17:45 Ventolin 0.083% Nebulizer Soln - NEB 1 amp Q4H PRN Administration SHORT OF BREATH/WHEEZING Albuterol Sulfate 1 amp 03/10/18 21:00 Ventolin 0.083% Nebulizer Soln - NEB 03/10/18 21:01 ONCE ONE Bacitracin/Polymyxin B Sulfate 1 applic 03/09/18 19:00 03/10/18 10:39 Polysporin Ointment - TP 1 applic BID AUNG Administration Diazepam 2 mg 03/09/18 06:45 03/10/18 13:18 Valium - PO 2 mg TID AUNG Administration Gabapentin 400 mg 03/09/18 10:00 03/10/18 10:36 Neurontin - PO 400 mg BID AUNG Administration Heparin Sodium (Porcine) 5,000 unit 03/09/18 06:15 03/10/18 13:18 Heparin - SQ 5,000 unit TID AUNG Administration Azithromycin 500 mg/ Dextrose 250 mls @ 250 mls/hr 03/09/18 18:00 03/10/18 09 :59 IVPB 250 mls/hr DAILY AUNG Administration Vancomycin HCl 750 mg/ 250 mls @ 250 mls/hr 03/09/18 14:00 03/10/18 13:19 Dextrose IVPB 250 mls/hr Q12H AUNG Administration Protocol Cefepime HCl 2 gm/ Dextrose 100 mls @ 200 mls/hr 03/09/18 18:00 03/10/18 18: 06 IVPB 200 mls/hr Q8H-IV AUNG Administration Protocol Metronidazole 500 mg in 100 mls @ 100 mls/hr 03/09/18 18:00 03/10/18 17:36 Flagyl 500mg Premixed Ivpb - IVPB 100 mls/hr Q8H-IV AUNG Administration Dextrose 1,000 mls @ 42 mls/hr 03/10/18 08:15 03/10/18 10:29 D5w - IV 42 mls/hr Q23H AUNG Administration Lacosamide 50 mg 03/09/18 10:00 03/10/18 10:36 Vimpat - PO 50 mg BID AUNG Administration Levetiracetam 1,500 mg 03/09/18 10:00 03/10/18 10:40 Keppra Oral Solution - PO 1,500 mg DAILY AUNG Administration Levetiracetam 1,750 mg 03/09/18 22:00 03/09/18 23:00 Keppra Oral Solution - PO 1,750 mg HS AUNG Administration Montelukast Sodium 5 mg 03/09/18 22:00 03/09/18 23:28 Singulair - PO 5 mg HS AUNG Administration Multi-Ingredient Ointment 1 applic 03/09/18 10:00 03/10/18 10:52 Zinc Oxide TP 1 applic BID AUNG Administration Phenobarbital 20 mg 03/09/18 12:00 03/10/18 10:35 Phenobarbital Liquid - PEG 20 mg DAILY AUNG Administration Potassium Chloride 40 meq 03/09/18 06:00 03/10/18 13:18 Potassium Chloride Oral Liquid PO 40 meq TID AUNG Administration Saliva Substitute 1 applic 03/09/18 17:15 03/10/18 10:39 Mouthkote Solution - MM 1 applic DAILY AUNG Administration Scopolamine HBr 1 patch 03/09/18 10:00 03/09/18 10:35 Transderm-Scop - TD 1 patch Q48H AUNG Administration ASSESSMENT/PLAN: Pt is a 23 y/o M with pmh mr, cerebral palsy, quadriplegia, seizure disorder, constipation, as well as a perforated viscous s/p laparotomy. Acute Respiratory Failure 2/2 aspiration pneumonia - Chest CT 03/09- extensive b/l pulmonary consolidation with poor aeration of lung ortiz, marked air and distension of large colon, no evidence of obstruction. STAT Chest Xray this evening (17:17) 2/2 aspiration on mucous secretions: Progressive congestive and infiltrative changes with pleural fluid - On nonrebreather, BIPAP not best for this patient considering functional status - Albuterol 1 amp neb, montelukast 5 mg po -Vanco Cefepime Azithrmycin - Racemic Epinephrine given this evening to pt as was in apparent respiratory distress - Acetylcysteine and Ventolin will be given tonight for thick mucous secretions. ID + for C Diff antigen -Metronidazole 500 mg Neuro Seizure d/o Keppra Phenobarbital Valium G.I Xray revealed dilation of colon, air distension. -Pt seen yesterday by [facility] (Dr Navarrete). Rectal vault not impacted. Rectal tube inserted and pt decompressed. FEN NS Monitor Electrolytes NPO DVT ppx: Heparin 5,000 U SQ Dispo Continue to monitor in icu Visit type - Emergency Visit Emergency Visit: Yes ED Registration Date: 03/09/18 Care time: The patient presented to the Emergency Department on the above date and was hospitalized for further evaluation of their emergent condition. - New Patient This patient is new to me today: No - Critical Care Critical Care patient: Yes Total Critical Care Time (in minutes): 35 Critical Care Statement: The care of this patient involved high complexity decision making to prevent further life threatening deterioration of the patient 's condition and/or to evaluate & treat vital organ system(s) failure or risk of failure.
--- NOTE | 2018-03-10 20:40 | PN ---
GI Progress Note Subjective: No acute events Abd US = non dilated gallbladder, no stones, no dilated biliary tract and fatty liver vs. hepatocellular disease - Objective Vital Signs: Vital Signs Temperature 97.8 F 03/10/18 16:00 Pulse Rate 98 H 03/10/18 18:00 Respiratory Rate 33 H 03/10/18 18:00 Blood Pressure 113/72 03/10/18 18:00 O2 Sat by Pulse Oximetry (%) 96 03/10/18 09:00 Constitutional: Calm Eyes: No: Sclera Icterus Cardiovascular: Yes: Tachycardia Respiratory: Yes: Diminished (at bases b/l poor insp effort) Gastrointestinal Inspection: Yes: Distention (Improved from yesterday) ...Auscultate: Yes: Normoactive Bowel Sounds ...Palpate: No: Tenderness (No grimacing upon palpation) ...Percussion: Yes: Tympanitic (improved from yesterday) Labs: CBC, BMP 03/10/18 05:30 03/10/18 05:30 INR, PTT INR 1.58 (0.82-1.09) H 03/10/18 05:30 Hepatic Panel Total Bilirubin 0.7 mg/dL (0.2-1.0) 03/10/18 05:30 AST 143 U/L (15-37) H D 03/10/18 05:30 ALT 207 U/L (12-78) H D 03/10/18 05:30 Alkaline Phosphatase 515 U/L (45-117) H D 03/10/18 05:30 Albumin 2.6 g/dl (3.4-5.0) L 03/10/18 05:30 Problem List - Problems (1) Elevated LFTs Assessment/Plan: Some improvement: ? if reactive secondary to RLL consolidation ? if secondary to sepsis / medication Minimize hepatotoxic agents Code(s): R94.5 - ABNORMAL RESULTS OF LIVER FUNCTION STUDIES (2) Abdominal distention Assessment/Plan: Improved: As I wrote yesterday: The colonic distention appears to be c chronic process No need for g- tube decompression resume tube feeds aspiration precautions Code(s): R14.0 - ABDOMINAL DISTENSION (GASEOUS) (3) Diarrhea Assessment/Plan: C. Diff antigen + with diarrhea On PO vanco Check C. Diff PCR PO vanco was discontinued today by the resident? Reordered PO Vanco 125mg via G-Tube q 6 hrs Code(s): R19.7 - DIARRHEA, UNSPECIFIED
[2018-03-10] MEDS ORDERED: ALBUTEROL SO4 0.083% IH SOL 2.5 MG/3 ML VIAL.NEB. NEB ONE (21:00)
[2018-03-10] MEDS ORDERED: ACETYLCYSTEINE 20% 200MG/ML 4 ML VIAL *FOR ORAL / INH USE ONLY NEB ONE (21:00)
[2018-03-10] MEDS: MONTELUKAST NA 5 MG TAB.CHEW PO SCH (21:17)
[2018-03-11] MEDS: VANCOMYCIN 250 MG/5 ML ORAL SOLUTION GT SCH ×4 (00:30→17:14)
[2018-03-11] MEDS: CEFEPIME 2 GM in DEXTROSE 5%-WATER 100 ML IVPB SCH ×3 (03:00→17:09)
[2018-03-11] MEDS: VANCOMYCIN 750 MG in DEXTROSE 5%-WATER - 250 ML IVPB SCH (03:19)
[2018-03-11] MEDS: diazePAM 2 MG TABLET PO SCH ×3 (06:00→21:05)
[2018-03-11] MEDS: POTASSIUM CHLORIDE ORAL LIQUID 20 MEQ/15 ML PO SCH ×3 (06:00→21:06)
[2018-03-11] MEDS: HEPARIN NA (PORCINE) 5,000 UNITS/ML 1ML VIAL SQ SCH ×3 (06:00→21:05)
[2018-03-11 06:14] LABS: HEP.C VIRUS AB <0.1 s/co ratio (0.0-0.9)
[2018-03-11 06:40] LABS: BASO % 0.7 % (0-2.0); EOS % 0.7 % (0-4.5); HEMATOCRIT 30.1 % (35.4-49); HEMOGLOBIN 10.1 GM/dL (11.7-16.9); LYMPH % 29.2 % (8-40); MCH 32.2 pg (25.7-33.7); MCHC 33.6 g/dl (32.0-35.9); MEAN CELL VOLUME 95.6 fl (80-96); MEAN PLT VOLUME 9.4 fl (7.5-11.1); MONO % 4.5 % (3.8-10.2); NEUT % 64.9 % (42.8-82.8); PLATELET COUNT 101 K/MM3 (134-434); RBC 3.15 M/mm3 (4.00-5.60); RDW 17.1 % (11.9-15.9)
[2018-03-11 06:57] LABS: CHLORIDE 117 mmol/L (98-107); SODIUM 148 mmol/L (136-145)
[2018-03-11] MEDS: DEXTROSE 5%-WATER - 1,000 ML IV SCH (07:00)
[2018-03-11 07:05] LABS: ALBUMIN 2.4 g/dl (3.4-5.0); ALK PHOS 408 U/L (45-117); ANION GAP 8 (8-16); BILIRUBIN,TOTAL 0.5 mg/dL (0.2-1.0); BLOOD UREA NITROGEN 6 mg/dL (7-18); CALCIUM 8.3 mg/dL (8.5-10.1); CO2 23 mmol/L (21-32); CREATININE 0.3 mg/dL (0.7-1.3); GLUCOSE,RANDOM 70 mg/dL (74-106); PHOSPHOROUS 3.6 mg/dL (2.5-4.9); SGPT/ALT 157 U/L (12-78); TOT PROT 5.8 g/dl (6.4-8.2)
[2018-03-11 07:23] LABS: SGOT/AST 89 U/L (15-37)
--- NOTE | 2018-03-11 07:34 | PN ---
Progress Note (short form) - Note Progress Note: ID Initial antibiotics therapy Vancomycin Azithromycin and Cefepime PO vancomcyin For C diff Selected Entries 03/10/18 03/10/18 12:00 14:00 Temperature 97.7 F Pulse Rate 90 Respiratory 30 H Rate Blood Pressure 107/71 Lung Rhonchi Cor S1 S2 RR Tachycardic Abd Soft distended Microbiology 03/09/18 02:41 Stool Clostridium difficile Antigen (CHLOÉ) - Final 03/09/18 02:41 Stool Clostridium difficile Toxin Assay - Final 03/08/18 23:11 Urine - Urine - Catheterized Urine Culture - Final NO GROWTH OBTAINED 03/08/18 23:11 Blood - Peripheral Venous Blood Culture - Preliminary NO GROWTH OBTAINED AFTER 48 HOURS, INCUBATION TO CONTINUE FOR 3 DAYS. 03/08/18 23:11 Blood - Peripheral Venous Blood Culture - Preliminary NO GROWTH OBTAINED AFTER 48 HOURS, INCUBATION TO CONTINUE FOR 3 DAYS. Laboratory Tests 03/10/18 03/11/18 03/11/18 06:30 05:30 05:30 WBC 7.0 Hgb 10.1 L Hct 30.1 L Plt Count 101 L D ESR 58 H AST 89 H D ALT 157 H D Alkaline Phosphatase 408 H D Assessment Extensive infiltrates unspecified C diff Ag pos Low suspicion now for intrabd infection Respiratory failure Plan Azithromycin continue Stop Vancomycin Stop metronidazole Continue Cefepime Meggan SHIRLEY Problem List - Problems (1) Pneumonia Code(s): J18.9 - PNEUMONIA, UNSPECIFIED ORGANISM (2) Sepsis Code(s): A41.9 - SEPSIS, UNSPECIFIED ORGANISM Qualifiers: Sepsis type: sepsis due to unspecified organism Qualified Code(s): A41.9 - Sepsis, unspecified organism (3) Elevated LFTs Code(s): R94.5 - ABNORMAL RESULTS OF LIVER FUNCTION STUDIES (4) S/P exploratory laparotomy Code(s): Z98.890 - OTHER SPECIFIED POSTPROCEDURAL STATES
[2018-03-11] MEDS: ALBUTEROL SO4 0.083% IH SOL 2.5 MG/3 ML VIAL.NEB. NEB PRN ×2 (08:41→11:40)
[2018-03-11] MEDS: levETIRAcetam 500 MG/5 ML ORAL SOLUTION (UNIT-DOSE CUPS) PO SCH ×2 (09:10→21:06)
[2018-03-11] MEDS: LACOSAMIDE 50 MG TABLET PO SCH ×2 (09:11→21:13)
[2018-03-11] MEDS: GABAPENTIN 400 MG CAPSULE (FP) PO SCH ×2 (09:11→21:06)
[2018-03-11] MEDS: AZITHROMYCIN IVPB 500 MG in DEXTROSE 5%-WATER - 250 ML IVPB SCH (09:12)
[2018-03-11] MEDS: SCOPOLAMINE HYDROBROMIDE 1 PATCH PATCH.TD72 TD SCH (09:13)
[2018-03-11] MEDS: PHENobarbital 20 MG/5 ML UNIT-DOSE CUP PEG SCH (09:13)
[2018-03-11] MEDS: ZINC OXIDE 20% TOPICAL OINTMENT 30 GM TUBE TP SCH ×2 (09:16→22:00)
[2018-03-11] MEDS: BACITRACIN/POLYMYXIN B SULFATE 15 GM TUBE TP SCH ×2 (09:17→22:00)
[2018-03-11] MEDS: LYTES/YERBA SANTA 240 ML BOTTLE MM SCH (09:17)
--- NOTE | 2018-03-11 12:49 | PN ---
Teaching Attending Note Name of Resident: Eric Gonzalez ATTENDING PHYSICIAN STATEMENT I saw and evaluated the patient. I reviewed the resident's note and discussed the case with the resident. I agree with the resident's findings and plan as documented. SUBJECTIVE: Pt seen and examined in the ICU. Remains on NRB, tachypneic but less so today. OBJECTIVE: Vital Signs Period Temp Pulse Resp BP Sys/Jay Pulse Ox Last 24 Hr 97.8 F-98.9 F 45-98 26-40 104-134/56-94 99-99 Intake & Output 03/08/18 03/09/18 03/10/18 03/11/18 23:59 23:59 23:59 23:59 Intake Total 250 2156 504 Output Total 1350 1700 500 Balance -1100 456 4 Weight 41.73 kg 41.957 kg Gen: tachypneic on NRB Heart: RRR Lung: bilateral rhonchi Abd: soft, nontender Ext: contracted, no edema CBC, BMP 03/11/18 05:30 03/11/18 05:30 Active Medications Albuterol Sulfate (Ventolin 0.083% Nebulizer Soln -) 1 amp NEB Q4H PRN PRN Reason: SHORT OF BREATH/WHEEZING Last Admin: 03/11/18 11:40 Dose: 1 amp Bacitracin/Polymyxin B Sulfate (Polysporin Ointment -) 1 applic TP BID [facility] Last Admin: 03/11/18 09:17 Dose: 1 applic Diazepam (Valium -) 2 mg PO TID AUNG Last Admin: 03/10/18 21:12 Dose: 2 mg Gabapentin (Neurontin -) 400 mg PO BID [facility] Last Admin: 03/11/18 09:11 Dose: 400 mg Heparin Sodium (Porcine) (Heparin -) 5,000 unit SQ TID [facility] Last Admin: 03/10/18 21:12 Dose: 5,000 unit Azithromycin 500 mg/ Dextrose 250 mls @ 250 mls/hr IVPB DAILY [facility] Last Admin: 03/11/18 09:12 Dose: 250 mls/hr Cefepime HCl 2 gm/ Dextrose 100 mls @ 200 mls/hr IVPB Q8H-IV [facility]UNG; Protocol Last Admin: 03/11/18 09:12 Dose: 200 mls/hr Dextrose (D5w -) 1,000 mls @ 42 mls/hr IV Q23H [facility]G Last Admin: 03/11/18 07:00 Dose: 42 mls/hr Lacosamide (Vimpat -) 50 mg PO BID [facility] Last Admin: 03/11/18 09:11 Dose: 50 mg Levetiracetam (Keppra Oral Solution -) 1,500 mg PO DAILY [facility] Last Admin: 03/11/18 09:10 Dose: 1,500 mg Levetiracetam (Keppra Oral Solution -) 1,750 mg PO HS [facility] Last Admin: 03/10/18 21:17 Dose: 1,750 mg Montelukast Sodium (Singulair -) 5 mg PO HS [facility] Last Admin: 03/10/18 21:17 Dose: 5 mg Multi-Ingredient Ointment (Zinc Oxide) 1 applic TP BID [facility] Last Admin: 03/11/18 09:16 Dose: 1 applic Phenobarbital (Phenobarbital Liquid -) 20 mg PEG DAILY [facility] Last Admin: 03/11/18 09:13 Dose: 20 mg Potassium Chloride (Potassium Chloride Oral Liquid) 40 meq PO TID [facility] Last Admin: 03/10/18 21:12 Dose: 40 meq Saliva Substitute (Mouthkote Solution -) 1 applic MM DAILY [facility] Last Admin: 03/11/18 09:17 Dose: 1 applic Scopolamine HBr (Transderm-Scop -) 1 patch TD Q48H [facility] Last Admin: 03/11/18 09:13 Dose: 1 patch Vancomycin HCl (Vancomycin Oral Solution) 125 mg GT Q6HPO [facility] Last Admin: 03/11/18 00:30 Dose: 125 mg ASSESSMENT AND PLAN: Acute Hypoxic Respiratory Failure Pneumonia likely Aspiration Severe Sepsis Elevated LFTs likely ischemic injury Abdominal Distention/Constipation Seizure Disorder Mental Retardation - continue antibiotics - f/u cultures - trend LFTs - aspiration precautions - O2 to keep SpO2 >90% - trial of high flow O2 - continue antiepileptics - DVT prophylaxis - continue ICU monitoring critical care time spent in reviewing chart, evaluating patient and formulating plan 35 min
--- NOTE | 2018-03-11 13:34 | PN ---
Teaching Attending Note Name of Resident: Maddie Clark ATTENDING PHYSICIAN STATEMENT I saw and evaluated the patient. I reviewed the resident's note and discussed the case with the resident. I agree with the resident's findings and plan as documented. SUBJECTIVE:+tachypnic OBJECTIVE: Last Vital Signs Temp Pulse Resp BP Pulse Ox 98.9 F 75 26 H 107/84 99 03/11/18 12:00 03/11/18 12:00 03/11/18 12:00 03/11/18 12:00 03/11/18 09:00 General mildly tachypnic, not using accessory muscles CV S1 S2 RRR no murmur/rub/gallop lungs coarse breath sounds B/L Abdomen soft. +dull to percussion, hypoactive BS +PEG LUQ in place. no drainage of bleeding noted Extremities contracted extremities ASSESSMENT AND PLAN: 23yo M from [place] with PMH cerebral palsy, mental retardation, functional quadriplegia was sent to the ER with acute hypoxic respiratory failure. was found to be 88% on RA which did not improve with nasal cannula and sent to the hospital. 1. Acute hypoxic respiratory failure- likely due to B/L PNA. currently 100% on non-rebreather. will titrate down supplemental oxygen as tolerated. remains tachypnic however not using accessory muscles. frequent deep suctioning. chest PT. pulmonary on board 2. Severe sepsis due to B/L PNA and suspected cdiff- clinically improved. cdiff ag +. no longer having loose stools here. currently on azithro/cefepime/vanco po. will need to clarify if pt was actively taking vanco at [place] or if abx was completed. if completed would not be indicated at this time. ID consulted. contact precautions. f/u cx 3. Elevated LFT- liekly due to severe sepsis.u/s showing fatty infilration of liver. now trending down. hepatitis panel pending 4. hypernatremia- improved. cont with D5w 5. hypoglycemia- improved. 6. ileus- seen on CT. less distention today. appear may be more chronic. will re -start TF. GI on board 7. MR 8. CP 9. epilepsy- no seizure like activity. on vimpat 10. DVT ppx- hep sq 11. MICU monitoring due to tenuous respiratory status. The care of this patient involved high complexity decision making to prevent further life threatening deterioration of the patient's condition and/or to evaluate & treat vital organ system(s) failure or risk of . 35 minutes
--- NOTE | 2018-03-11 16:23 | PN ---
Physical Exam: SUBJECTIVE: Patient seen and examined today in icu. Coughing up copious amounts of secretions. Continuing on NRB. OBJECTIVE: Vital Signs Period Temp Pulse Resp BP Sys/Jay Pulse Ox Last 24 Hr 98.9 F 45-98 26-40 104-134/56-94 99-99 GENERAL: Uncomfortable, grunting, nasal flaring. HEAD: Normal with no signs of trauma. ENT: Tongue protrusion. Erythema of tongue. NECK: Flexing accessory mucles in neck LUNGS: Coarse rhonchi throughout HEART: -m/r/g, RRR ABDOMEN: Abdomen less distended. EXTREMITIES: small ulcer on ring finger left hand. Extremities contracted. SKIN: moist. Laboratory Results - last 24 hr 03/10/18 03/10/18 03/11/18 08:15 08:15 05:30 WBC 7.0 RBC 3.15 L Hgb 10.1 L Hct 30.1 L MCV 95.6 MCH 32.2 MCHC 33.6 RDW 17.1 H Plt Count 101 L D MPV 9.4 Absolute Neuts (auto) 4.6 Neutrophils % 64.9 Lymphocytes % 29.2 Monocytes % 4.5 Eosinophils % 0.7 Basophils % 0.7 Nucleated RBC % 0 Sodium Potassium Chloride Carbon Dioxide Anion Gap BUN Creatinine Creat Clearance w eGFR Random Glucose Calcium Phosphorus Magnesium Total Bilirubin AST ALT Alkaline Phosphatase Total Protein Albumin Hepatitis A IgM Ab Negative Hep Bs Antigen Negative Hep Bs Antibody, Quant <3.1 L Hep B Core IgM Ab Negative Hepatitis C Antibody <0.1 03/11/18 05:30 WBC RBC Hgb Hct MCV MCH MCHC RDW Plt Count MPV Absolute Neuts (auto) Neutrophils % Lymphocytes % Monocytes % Eosinophils % Basophils % Nucleated RBC % Sodium 148 H Potassium 5.0 D Chloride 117 H Carbon Dioxide 23 Anion Gap 8 BUN 6 L Creatinine 0.3 L Creat Clearance w eGFR > 60 Random Glucose 70 L Calcium 8.3 L Phosphorus 3.6 Magnesium 2.0 Total Bilirubin 0.5 AST 89 H D ALT 157 H D Alkaline Phosphatase 408 H D Total Protein 5.8 L Albumin 2.4 L Hepatitis A IgM Ab Hep Bs Antigen Hep Bs Antibody, Quant Hep B Core IgM Ab Hepatitis C Antibody Active Medications Generic Name Dose Route Start Last Admin Trade Name Freq PRN Reason Stop Dose Admin Albuterol Sulfate 1 amp 03/09/18 05:09 03/11/18 11:40 Ventolin 0.083% Nebulizer Soln - NEB 1 amp Q4H PRN Administration SHORT OF BREATH/WHEEZING Bacitracin/Polymyxin B Sulfate 1 applic 03/09/18 19:00 03/11/18 09:17 Polysporin Ointment - TP 1 applic BID AUNG Administration Diazepam 2 mg 03/09/18 06:45 03/10/18 21:12 Valium - PO 2 mg TID AUNG Administration Gabapentin 400 mg 03/09/18 10:00 03/11/18 09:11 Neurontin - PO 400 mg BID AUNG Administration Heparin Sodium (Porcine) 5,000 unit 03/09/18 06:15 03/10/18 21:12 Heparin - SQ 5,000 unit TID AUNG Administration Azithromycin 500 mg/ Dextrose 250 mls @ 250 mls/hr 03/09/18 18:00 03/11/18 09 :12 IVPB 250 mls/hr DAILY ANUG Administration Cefepime HCl 2 gm/ Dextrose 100 mls @ 200 mls/hr 03/09/18 18:00 03/11/18 09: 12 IVPB 200 mls/hr Q8H-IV AUNG Administration Protocol Dextrose 1,000 mls @ 42 mls/hr 03/10/18 08:15 03/11/18 07:00 D5w - IV 42 mls/hr Q23H AUNG Administration Lacosamide 50 mg 03/09/18 10:00 03/11/18 09:11 Vimpat - PO 50 mg BID AUNG Administration Levetiracetam 1,500 mg 03/09/18 10:00 03/11/18 09:10 Keppra Oral Solution - PO 1,500 mg DAILY AUNG Administration Levetiracetam 1,750 mg 03/09/18 22:00 03/10/18 21:17 Keppra Oral Solution - PO 1,750 mg HS AUNG Administration Loratadine 10 mg 03/11/18 15:30 Claritin - PO DAILY AUNG Montelukast Sodium 5 mg 03/09/18 22:00 03/10/18 21:17 Singulair - PO 5 mg HS AUNG Administration Multi-Ingredient Ointment 1 applic 03/09/18 10:00 03/11/18 09:16 Zinc Oxide TP 1 applic BID AUNG Administration Phenobarbital 20 mg 03/09/18 12:00 03/11/18 09:13 Phenobarbital Liquid - PEG 20 mg DAILY AUNG Administration Potassium Chloride 40 meq 03/09/18 06:00 03/10/18 21:12 Potassium Chloride Oral Liquid PO 40 meq TID AUNG Administration Saliva Substitute 1 applic 03/09/18 17:15 03/11/18 09:17 Mouthkote Solution - MM 1 applic DAILY AUNG Administration Scopolamine HBr 1 patch 03/09/18 10:00 03/11/18 09:13 Transderm-Scop - TD 1 patch Q48H AUNG Administration Vancomycin HCl 125 mg 03/11/18 00:00 03/11/18 00:30 Vancomycin Oral Solution GT 125 mg Q6HPO AUNG Administration ASSESSMENT/PLAN: Pt is a 23 y/o M with pmh mr, cerebral palsy, quadriplegia, seizure disorder, constipation, as well as a perforated viscous s/p laparotomy. Acute Respiratory Failure 2/2 aspiration pneumonia - Chest CT 03/09- extensive b/l pulmonary consolidation with poor aeration of lung ortiz, marked air and distension of large colon, no evidence of obstruction. Chest Xray today 03/11 2/2 unchanged since xray 03/10: congestive and infiltrative changes with pleural fluid - On nonrebreather, BIPAP not best for this patient considering functional status - Albuterol 1 amp neb, montelukast 5 mg po -Vanco Cefepime Azithrmycin. Stop Vanco PER ID. ID + for C Diff antigen -Metronidazole D/C'ed per ID. Low suspicion of intrabd infection. Neuro Seizure d/o Keppra Phenobarbital Valium G.I Prior Xrays revealed dilation of colon, air distension. Pt less distended s/p rectal tube insertion (03/09) Seen by Deon today. Restart enteral feeds. FEN D5W Monitor Electrolytes Enteral feeds restarted DVT ppx: Heparin 5,000 U SQ Dispo Continue to monitor in icu Visit type - Emergency Visit Emergency Visit: Yes ED Registration Date: 03/09/18 Care time: The patient presented to the Emergency Department on the above date and was hospitalized for further evaluation of their emergent condition. - New Patient This patient is new to me today: No - Critical Care Critical Care patient: Yes Total Critical Care Time (in minutes): 35 Critical Care Statement: The care of this patient involved high complexity decision making to prevent further life threatening deterioration of the patient 's condition and/or to evaluate & treat vital organ system(s) failure or risk of failure.
[2018-03-11] MEDS ORDERED: PT OWN MED DRAWER 7, Y5N ONE (17:05)
[2018-03-11] MEDS: LORATADINE 10 MG TABLET PO SCH (17:10)
--- NOTE | 2018-03-11 18:36 | PN ---
Physical Exam: SUBJECTIVE: Patient seen and examined resting comfortably in ICU. Continues to have tachypnea. Unable to perform ROS as patient is nonverbal. No other acute events over night. OBJECTIVE: Vital Signs Period Temp Pulse Resp BP Sys/Jay Pulse Ox Last 24 Hr 98.7 F-98.9 F 45-98 26-40 104-134/56-94 99-99 GENERAL: Awake, sitting upright at a 40 degree angle, nonverbal LUNGS: Tachypnea, Rhonchi present throughout, On Nonrebreather HEART: Regular rate and rhythm, S1, S2 without murmur, rub or gallop. ABDOMEN: Soft, Distended, Hypoactive bowel sounds, PEG tube present in LUQ without bleeding, drainage or surrounding erythema EXTREMITIES: Upper extremities Contracted B/L Laboratory Results - last 24 hr 03/10/18 03/10/18 03/11/18 08:15 08:15 05:30 WBC 7.0 RBC 3.15 L Hgb 10.1 L Hct 30.1 L MCV 95.6 MCH 32.2 MCHC 33.6 RDW 17.1 H Plt Count 101 L D MPV 9.4 Absolute Neuts (auto) 4.6 Neutrophils % 64.9 Lymphocytes % 29.2 Monocytes % 4.5 Eosinophils % 0.7 Basophils % 0.7 Nucleated RBC % 0 Sodium Potassium Chloride Carbon Dioxide Anion Gap BUN Creatinine Creat Clearance w eGFR Random Glucose Calcium Phosphorus Magnesium Total Bilirubin AST ALT Alkaline Phosphatase Total Protein Albumin Hepatitis A IgM Ab Negative Hep Bs Antigen Negative Hep Bs Antibody, Quant <3.1 L Hep B Core IgM Ab Negative Hepatitis C Antibody <0.1 03/11/18 05:30 WBC RBC Hgb Hct MCV MCH MCHC RDW Plt Count MPV Absolute Neuts (auto) Neutrophils % Lymphocytes % Monocytes % Eosinophils % Basophils % Nucleated RBC % Sodium 148 H Potassium 5.0 D Chloride 117 H Carbon Dioxide 23 Anion Gap 8 BUN 6 L Creatinine 0.3 L Creat Clearance w eGFR > 60 Random Glucose 70 L Calcium 8.3 L Phosphorus 3.6 Magnesium 2.0 Total Bilirubin 0.5 AST 89 H D ALT 157 H D Alkaline Phosphatase 408 H D Total Protein 5.8 L Albumin 2.4 L Hepatitis A IgM Ab Hep Bs Antigen Hep Bs Antibody, Quant Hep B Core IgM Ab Hepatitis C Antibody Microbiology 03/08/18 23:11 Blood - Peripheral Venous Blood Culture - Preliminary NO GROWTH OBTAINED AFTER 48 HOURS, INCUBATION TO CONTINUE FOR 3 DAYS. 03/08/18 23:11 Blood - Peripheral Venous Blood Culture - Preliminary NO GROWTH OBTAINED AFTER 48 HOURS, INCUBATION TO CONTINUE FOR 3 DAYS. 03/08/18 23:11 Urine - Urine - Catheterized Urine Culture - Final NO GROWTH OBTAINED 03/09/18 02:41 Stool Clostridium difficile Antigen (CHLOÉ) - Final 03/09/18 02:41 Stool Clostridium difficile Toxin Assay - Final Active Medications Albuterol Sulfate (Ventolin 0.083% Nebulizer Soln -) 1 amp NEB Q4H PRN PRN Reason: SHORT OF BREATH/WHEEZING Last Admin: 03/11/18 11:40 Dose: 1 amp Bacitracin/Polymyxin B Sulfate (Polysporin Ointment -) 1 applic TP BID [facility] Last Admin: 03/11/18 09:17 Dose: 1 applic Diazepam (Valium -) 2 mg PO TID [facility] Last Admin: 03/11/18 14:00 Dose: 2 mg Gabapentin (Neurontin -) 400 mg PO BID [facility] Last Admin: 03/11/18 09:11 Dose: 400 mg Heparin Sodium (Porcine) (Heparin -) 5,000 unit SQ TID [facility] Last Admin: 03/11/18 17:10 Dose: 5,000 unit Azithromycin 500 mg/ Dextrose 250 mls @ 250 mls/hr IVPB DAILY [facility] Last Admin: 03/11/18 09:12 Dose: 250 mls/hr Cefepime HCl 2 gm/ Dextrose 100 mls @ 200 mls/hr IVPB Q8H-IV AUNG; Protocol Last Admin: 03/11/18 17:09 Dose: 200 mls/hr Dextrose (D5w -) 1,000 mls @ 42 mls/hr IV Q23H [facility] Last Admin: 03/11/18 07:00 Dose: 42 mls/hr Lacosamide (Vimpat -) 50 mg PO BID [facility] Last Admin: 03/11/18 09:11 Dose: 50 mg Levetiracetam (Keppra Oral Solution -) 1,500 mg PO DAILY [facility] Last Admin: 03/11/18 09:10 Dose: 1,500 mg Levetiracetam (Keppra Oral Solution -) 1,750 mg PO HS [facility] Last Admin: 03/10/18 21:17 Dose: 1,750 mg Loratadine (Claritin -) 10 mg PO DAILY [facility] Last Admin: 03/11/18 17:10 Dose: 10 mg Montelukast Sodium (Singulair -) 5 mg PO HS [facility] Last Admin: 03/10/18 21:17 Dose: 5 mg Multi-Ingredient Ointment (Zinc Oxide) 1 applic TP BID [facility] Last Admin: 03/11/18 09:16 Dose: 1 applic Phenobarbital (Phenobarbital Liquid -) 20 mg PEG DAILY [facility] Last Admin: 03/11/18 09:13 Dose: 20 mg Potassium Chloride (Potassium Chloride Oral Liquid) 40 meq PO TID [facility] Last Admin: 03/11/18 14:00 Dose: 40 meq Saliva Substitute (Mouthkote Solution -) 1 applic MM DAILY [facility] Last Admin: 03/11/18 09:17 Dose: 1 applic Scopolamine HBr (Transderm-Scop -) 1 patch TD Q48H [facility] Last Admin: 03/11/18 09:13 Dose: 1 patch Vancomycin HCl (Vancomycin Oral Solution) 125 mg GT Q6HPO [facility] Last Admin: 03/11/18 17:11 Dose: 125 mg IMAGING - CXR: Imaging reveals scoliosis with extensive spinal support rods, weak inspiration with bilateral effusions, infiltrates and large heart. There is abdominal distention which is quite diffuse. The bones and soft tissues are intact. - CT Abdomen Pelvis: Extensive bilateral pulmonary consolidation with poor aeration of the lung ortiz. Marked air and fluid distention of the entire colon with no gross evidence of obstruction. Markedly limited study as described above. ASSESSMENT/PLAN: 23 y/o M resident of [place] with PMHx of profound developmental delay, cerebral palsy, functional quadriplegia, non-interactive at baseline, reactive airway disease, seizure disorder was admitted for Acute hypoxic respiratory failure. 1. Acute hypoxic respiratory failure - Tachypnic - 88% Saturation did not improve on 5L via NC at [place] as per chart - Improved to >90% on 100% Nonrebreather after deep suctioning - Consider Aspiration pneumonia - Chest physio therapy - Frequent deep suctioning - Pulmonology consulted, appreciate rec's 2. Severe Sepsis - Likely due to HCAP - Lactic Acid: 1.3 - Continue tx with Azithromycin, Cefepime, Metronidazole, Vancomycin - ID Consulted, appreciate rec's - GI Consulted, appreciate rec's - Cultures pending 3. Diarrhea - Suspected C. Diff, Stool was positive for C. Diff antigen on this visit - Lactulose on home medication list; clarify from NH whether he is still getting it - Hx of stool C.Diff antigen positive but toxin negative--given oral vancomycin in 08/2017 - No loose stools since ICU Admission - Continue with IV Metronidazole 4. Hypokalemia - Likely due to stool losses and poor intake. - Mag pending - Continue KCL 40meq PO TID 5. HyperNatremia - Free water deficit 1.8L - Continue D5w at 42cc 6. Hypoglycemia - Tube feeds can be resumed; previous dietary records show patient was on Vital 1.2, starting rate 25ml/hour, titration 10 ml Q8H, Goal 50 ml/hour, target volume 1200 ml - Continue BGM 7. Ileus - Seen on CT - PEG tube already in place to suction - Abdominal distension improved - Hypoactive bowel sounds - Resume Tube feed - GI Consulted, can resume tube feeds 8. Acute transaminitis - Elevated LFTs may be part of the sepsis syndrome - Trending down - Consider abdominal Ultrasound - Hepatitis panel pending 9. Seizure disorder - Continue Keppra 10. FEN - IV D5 NS - K is low 3.4, will give 40meq PO TID, repeat chemistries - Nutrition via PEG on hold, patient has an Ileus 11. DVT ppx - Heparin 5000U TID SQ Dispo - ICU due to respiratory status Visit type - Emergency Visit Emergency Visit: Yes ED Registration Date: 03/09/18 Care time: The patient presented to the Emergency Department on the above date and was hospitalized for further evaluation of their emergent condition. - New Patient This patient is new to me today: No - Critical Care Critical Care patient: Yes Total Critical Care Time (in minutes): 42 Critical Care Statement: The care of this patient involved high complexity decision making to prevent further life threatening deterioration of the patient 's condition and/or to evaluate & treat vital organ system(s) failure or risk of failure.
[2018-03-11] MEDS: MONTELUKAST NA 5 MG TAB.CHEW PO SCH (21:06)
[2018-03-12] MEDS: VANCOMYCIN 250 MG/5 ML ORAL SOLUTION GT SCH ×4 (01:16→17:15)
[2018-03-12] MEDS: CEFEPIME 2 GM in DEXTROSE 5%-WATER 100 ML IVPB SCH ×3 (01:19→17:14)
[2018-03-12] MEDS: POTASSIUM CHLORIDE ORAL LIQUID 20 MEQ/15 ML PO SCH (06:15)
[2018-03-12] MEDS: DEXTROSE 5%-WATER - 1,000 ML IV SCH (06:16)
[2018-03-12] MEDS: diazePAM 2 MG TABLET PO SCH ×3 (06:16→22:18)
[2018-03-12] MEDS: HEPARIN NA (PORCINE) 5,000 UNITS/ML 1ML VIAL SQ SCH ×3 (06:16→22:18)
--- NOTE | 2018-03-12 08:19 | PN ---
Progress Note, Physician Chief Complaint: ID Cefepime Azithromycin day 3 therapy Appears stable no distress - Current Medication List Current Medications: Active Medications Albuterol Sulfate (Ventolin 0.083% Nebulizer Soln -) 1 amp NEB Q4H PRN PRN Reason: SHORT OF BREATH/WHEEZING Last Admin: 03/11/18 11:40 Dose: 1 amp Bacitracin/Polymyxin B Sulfate (Polysporin Ointment -) 1 applic TP BID [facility] Last Admin: 03/11/18 22:00 Dose: 1 applic Diazepam (Valium -) 2 mg PO TID [facility]G Last Admin: 03/12/18 06:16 Dose: 2 mg Gabapentin (Neurontin -) 400 mg PO BID [facility] Last Admin: 03/11/18 21:06 Dose: 400 mg Heparin Sodium (Porcine) (Heparin -) 5,000 unit SQ TID [facility] Last Admin: 03/12/18 06:16 Dose: 5,000 unit Azithromycin 500 mg/ Dextrose 250 mls @ 250 mls/hr IVPB DAILY [facility] Last Admin: 03/11/18 09:12 Dose: 250 mls/hr Cefepime HCl 2 gm/ Dextrose 100 mls @ 200 mls/hr IVPB Q8H-IV AUNG; Protocol Last Admin: 03/12/18 01:19 Dose: 200 mls/hr Dextrose (D5w -) 1,000 mls @ 42 mls/hr IV Q23H [facility] Last Admin: 03/12/18 06:16 Dose: 42 mls/hr Lacosamide (Vimpat -) 50 mg PO BID [facility] Last Admin: 03/11/18 21:13 Dose: 50 mg Levetiracetam (Keppra Oral Solution -) 1,500 mg PO DAILY [facility] Last Admin: 03/11/18 09:10 Dose: 1,500 mg Levetiracetam (Keppra Oral Solution -) 1,750 mg PO HS [facility] Last Admin: 03/11/18 21:06 Dose: 1,750 mg Loratadine (Claritin -) 10 mg PO DAILY [facility] Last Admin: 03/11/18 17:10 Dose: 10 mg Montelukast Sodium (Singulair -) 5 mg PO HS [facility] Last Admin: 03/11/18 21:06 Dose: 5 mg Multi-Ingredient Ointment (Zinc Oxide) 1 applic TP BID [facility] Last Admin: 03/11/18 22:00 Dose: 1 applic Phenobarbital (Phenobarbital Liquid -) 20 mg PEG DAILY [facility] Last Admin: 03/11/18 09:13 Dose: 20 mg Potassium Chloride (Potassium Chloride Oral Liquid) 40 meq PO TID [facility] Last Admin: 03/12/18 06:15 Dose: 40 meq Saliva Substitute (Mouthkote Solution -) 1 applic MM DAILY [facility] Last Admin: 03/11/18 09:17 Dose: 1 applic Scopolamine HBr (Transderm-Scop -) 1 patch TD Q48H [facility] Last Admin: 03/11/18 09:13 Dose: 1 patch Vancomycin HCl (Vancomycin Oral Solution) 125 mg GT Q6HPO [facility] Last Admin: 03/12/18 06:15 Dose: 125 mg - Objective Vital Signs: Vital Signs Temperature 96.2 F L 03/12/18 02:00 Pulse Rate 85 03/12/18 06:00 Respiratory Rate 27 H 03/12/18 06:00 Blood Pressure 139/89 03/12/18 06:00 O2 Sat by Pulse Oximetry (%) 98 03/11/18 20:29 Constitutional: Yes: No Distress Cardiovascular: Yes: S1, S2 Respiratory: Yes: Rhonchi Gastrointestinal: Yes: Soft, Other (PEG). No: Distention, Tenderness Edema: No Labs: INR, PTT INR 1.58 (0.82-1.09) H 03/10/18 05:30 Problem List - Problems (1) Pneumonia Code(s): J18.9 - PNEUMONIA, UNSPECIFIED ORGANISM (2) Sepsis Code(s): A41.9 - SEPSIS, UNSPECIFIED ORGANISM Qualifiers: Sepsis type: sepsis due to unspecified organism Qualified Code(s): A41.9 - Sepsis, unspecified organism (3) Elevated LFTs Code(s): R94.5 - ABNORMAL RESULTS OF LIVER FUNCTION STUDIES (4) S/P exploratory laparotomy Code(s): Z98.890 - OTHER SPECIFIED POSTPROCEDURAL STATES Assessment/Plan Microbiology 03/09/18 02:41 Stool Clostridium difficile Antigen (CHLOÉ) - Final 03/09/18 02:41 Stool Clostridium difficile Toxin Assay - Final 03/08/18 23:11 Urine - Urine - Catheterized Urine Culture - Final NO GROWTH OBTAINED 03/08/18 23:11 Blood - Peripheral Venous Blood Culture - Preliminary NO GROWTH OBTAINED AFTER 72 HOURS, INCUBATION TO CONTINUE FOR 2 DAYS. 03/08/18 23:11 Blood - Peripheral Venous Blood Culture - Preliminary NO GROWTH OBTAINED AFTER 72 HOURS, INCUBATION TO CONTINUE FOR 2 DAYS. Laboratory Tests 03/10/18 03/11/18 03/11/18 05:30 05:30 05:30 WBC 7.0 Hgb 10.1 L Plt Count 101 L D INR 1.58 H BUN 6 L AST 89 H D ALT 157 H D Alkaline Phosphatase 408 H D 03/12/18 07:30 WBC Pending Hgb Pending Plt Count Pending INR BUN AST ALT Alkaline Phosphatase Assessment Respiratory failure improved Sepsis Bilateral infiltrates in this 23 year old from [place] C diff AG pos ? colonization previovusly treated for this Elevated LFT ? sepsis superimposed on fatty liver Plan Continue current antibiotics as ordered Moniter LFTs Meggan SHIRLEY
[2018-03-12 08:25] LABS: BASO % 0.3 % (0-2.0); EOS % 1.2 % (0-4.5); HEMATOCRIT 31.3 % (35.4-49); HEMOGLOBIN 10.5 GM/dL (11.7-16.9); LYMPH % 16.3 % (8-40); MCH 31.8 pg (25.7-33.7); MCHC 33.5 g/dl (32.0-35.9); MEAN CELL VOLUME 95.1 fl (80-96); MEAN PLT VOLUME 9.3 fl (7.5-11.1); MONO % 5.2 % (3.8-10.2); PLATELET COUNT 91 K/MM3 (134-434); RBC 3.29 M/mm3 (4.00-5.60); RDW 16.5 % (11.9-15.9); WHITE BLOOD COUNT 9.5 K/mm3 (4.0-10.0)
[2018-03-12 08:45] LABS: ALBUMIN 2.5 g/dl (3.4-5.0); ALK PHOS 362 U/L (45-117); ANION GAP 3 (8-16); BILIRUBIN,TOTAL 0.3 mg/dL (0.2-1.0); BLOOD UREA NITROGEN 8 mg/dL (7-18); CALCIUM 8.7 mg/dL (8.5-10.1); CHLORIDE 114 mmol/L (98-107); CO2 27 mmol/L (21-32); CREATININE 0.2 mg/dL (0.7-1.3); GLUCOSE,RANDOM 66 mg/dL (74-106); MAGNESIUM 1.9 mg/dL (1.8-2.4); PHOSPHOROUS 3.4 mg/dL (2.5-4.9); POTASSIUM 5.5 mmol/L (3.5-5.1); SGOT/AST 58 U/L (15-37); SGPT/ALT 130 U/L (12-78); SODIUM 144 mmol/L (136-145); TOT PROT 5.9 g/dl (6.4-8.2)
[2018-03-12] MEDS ORDERED: SODIUM POLYSTYRENE SULFONATE 15 GM/60 ML BOTTLE PO ONE (09:44)
[2018-03-12] MEDS: AZITHROMYCIN IVPB 500 MG in DEXTROSE 5%-WATER - 250 ML IVPB SCH (09:49)
[2018-03-12] MEDS: BACITRACIN/POLYMYXIN B SULFATE 15 GM TUBE TP SCH ×2 (09:50→22:21)
[2018-03-12] MEDS: LYTES/YERBA SANTA 240 ML BOTTLE MM SCH (09:50)
[2018-03-12] MEDS ORDERED: PT OWN MED DRAWER 7, Y5N ONE ×4 (09:57→22:28)
[2018-03-12] MEDS: ALBUTEROL SO4 0.083% IH SOL 2.5 MG/3 ML VIAL.NEB. NEB PRN (10:07)
[2018-03-12] MEDS: GABAPENTIN 400 MG CAPSULE (FP) PO SCH ×2 (10:25→22:18)
[2018-03-12] MEDS: LORATADINE 10 MG TABLET PO SCH (10:25)
[2018-03-12] MEDS: PHENobarbital 20 MG/5 ML UNIT-DOSE CUP PEG SCH (10:25)
[2018-03-12] MEDS: levETIRAcetam 500 MG/5 ML ORAL SOLUTION (UNIT-DOSE CUPS) PO SCH ×2 (10:26→22:37)
[2018-03-12] MEDS: LACOSAMIDE 50 MG TABLET PO SCH ×2 (10:27→22:17)
[2018-03-12] MEDS: ZINC OXIDE 20% TOPICAL OINTMENT 30 GM TUBE TP SCH ×2 (10:35→22:20)
[2018-03-12] MEDS ORDERED: SODIUM POLYSTYRENE SULFONATE 15 GM/60 ML BOTTLE ONE (10:38)
--- NOTE | 2018-03-12 12:34 | PN ---
Teaching Attending Note Name of Resident: Eric Gonzalez ATTENDING PHYSICIAN STATEMENT I saw and evaluated the patient. I reviewed the resident's note and discussed the case with the resident. I agree with the resident's findings and plan as documented. SUBJECTIVE: Patient seen and examined in the ICU. Remains on NRBM, tachypneic with periods off hypoxemia into the upper 80's. CXR: mild increase in bilateral airspace disease OBJECTIVE: Intake & Output 03/09/18 03/10/18 03/11/18 03/12/18 23:59 23:59 23:59 23:59 Intake Total 250 2156 1128 360 Output Total 1350 1700 1500 Balance -1100 456 -372 360 Weight 92 lb 8 oz 92 lb Last Vital Signs Temp Pulse Resp BP Pulse Ox 96.2 F L 85 27 H 139/89 98 03/12/18 02:00 03/12/18 06:00 03/12/18 06:00 03/12/18 06:00 03/11/18 20:29 Active Medications Albuterol Sulfate (Ventolin 0.083% Nebulizer Soln -) 1 amp NEB Q4H PRN PRN Reason: SHORT OF BREATH/WHEEZING Last Admin: 03/12/18 10:07 Dose: 1 amp Bacitracin/Polymyxin B Sulfate (Polysporin Ointment -) 1 applic TP BID [facility] Last Admin: 03/12/18 09:50 Dose: 1 applic Diazepam (Valium -) 2 mg PO TID [facility] Last Admin: 03/12/18 06:16 Dose: 2 mg Gabapentin (Neurontin -) 400 mg PO BID [facility] Last Admin: 03/12/18 10:25 Dose: 400 mg Heparin Sodium (Porcine) (Heparin -) 5,000 unit SQ TID [facility] Last Admin: 03/12/18 06:16 Dose: 5,000 unit Cefepime HCl 2 gm/ Dextrose 100 mls @ 200 mls/hr IVPB Q8H-IV [facility]; Protocol Last Admin: 03/12/18 10:24 Dose: 200 mls/hr Dextrose (D5w -) 1,000 mls @ 42 mls/hr IV Q23H [facility] Last Admin: 03/12/18 06:16 Dose: 42 mls/hr Azithromycin 500 mg/ Dextrose 250 mls @ 250 mls/hr IVPB DAILY [facility] Last Admin: 03/12/18 09:49 Dose: 250 mls/hr Lacosamide (Vimpat -) 50 mg PO BID [facility] Last Admin: 03/12/18 10:27 Dose: 50 mg Levetiracetam (Keppra Oral Solution -) 1,500 mg PO DAILY [facility] Last Admin: 03/12/18 10:26 Dose: 1,500 mg Levetiracetam (Keppra Oral Solution -) 1,750 mg PO HS [facility] Last Admin: 03/11/18 21:06 Dose: 1,750 mg Loratadine (Claritin -) 10 mg PO DAILY [facility] Last Admin: 03/12/18 10:25 Dose: 10 mg Montelukast Sodium (Singulair -) 5 mg PO HS [facility] Last Admin: 03/11/18 21:06 Dose: 5 mg Multi-Ingredient Ointment (Zinc Oxide) 1 applic TP BID [facility] Last Admin: 03/12/18 10:35 Dose: 1 applic Phenobarbital (Phenobarbital Liquid -) 20 mg PEG DAILY [facility] Last Admin: 03/12/18 10:25 Dose: 20 mg Saliva Substitute (Mouthkote Solution -) 1 applic MM DAILY [facility] Last Admin: 03/12/18 09:50 Dose: 1 applic Scopolamine HBr (Transderm-Scop -) 1 patch TD Q48H [facility] Last Admin: 03/11/18 09:13 Dose: 1 patch Vancomycin HCl (Vancomycin Oral Solution) 125 mg GT Q6HPO [facility] Last Admin: 03/12/18 06:15 Dose: 125 mg Gen: tachypneic on NRB Heart: RRR Lung: bilateral rhonchi Abd: soft, nontender Ext: contracted, no edema Laboratory Results - last 24 hr 03/09/18 03/09/18 03/09/18 10:10 15:53 22:44 WBC RBC Hgb Hct MCV MCH MCHC RDW Plt Count MPV Absolute Neuts (auto) Neutrophils % Lymphocytes % Monocytes % Eosinophils % Basophils % Nucleated RBC % Sodium Potassium Chloride Carbon Dioxide Anion Gap BUN Creatinine Creat Clearance w eGFR POC Glucometer 93.26521 142.99945 139.16575 Random Glucose Calcium Phosphorus Magnesium Total Bilirubin AST ALT Alkaline Phosphatase Total Protein Albumin Hepatitis A IgM Ab Hep Bs Antigen Hep Bs Antibody, Quant Hep B Core IgM Ab Hepatitis C Antibody 03/10/18 03/10/18 03/10/18 06:36 08:15 08:15 WBC RBC Hgb Hct MCV MCH MCHC RDW Plt Count MPV Absolute Neuts (auto) Neutrophils % Lymphocytes % Monocytes % Eosinophils % Basophils % Nucleated RBC % Sodium Potassium Chloride Carbon Dioxide Anion Gap BUN Creatinine Creat Clearance w eGFR POC Glucometer 92.18824 Random Glucose Calcium Phosphorus Magnesium Total Bilirubin AST ALT Alkaline Phosphatase Total Protein Albumin Hepatitis A IgM Ab Negative Hep Bs Antigen Negative Hep Bs Antibody, Quant <3.1 L <3.1 L Hep B Core IgM Ab Negative Hepatitis C Antibody <0.1 03/10/18 03/12/18 03/12/18 11:13 07:30 07:30 WBC 9.5 RBC 3.29 L Hgb 10.5 L Hct 31.3 L MCV 95.1 MCH 31.8 MCHC 33.5 RDW 16.5 H Plt Count 91 L MPV 9.3 Absolute Neuts (auto) 7.3 Neutrophils % 77.0 Lymphocytes % 16.3 D Monocytes % 5.2 Eosinophils % 1.2 Basophils % 0.3 Nucleated RBC % 0 Sodium 144 Potassium 5.5 H Chloride 114 H Carbon Dioxide 27 Anion Gap 3 L BUN 8 Creatinine 0.2 L Creat Clearance w eGFR > 60 POC Glucometer [phone] Random Glucose 66 L Calcium 8.7 Phosphorus 3.4 Magnesium 1.9 Total Bilirubin 0.3 AST 58 H D ALT 130 H Alkaline Phosphatase 362 H D Total Protein 5.9 L Albumin 2.5 L Hepatitis A IgM Ab Hep Bs Antigen Hep Bs Antibody, Quant Hep B Core IgM Ab Hepatitis C Antibody ASSESSMENT AND PLAN: Acute Hypoxic Respiratory Failure Pneumonia likely Aspiration Severe Sepsis Elevated LFTs likely ischemic injury Abdominal Distention/Constipation Seizure Disorder Mental Retardation - Trial of HF NC O2 - ABX - Aspiration precautions - AEDs - DVT prophylaxis - BD TX - continue ICU monitoring Dr Young Critical care time spent in reviewing chart, evaluating patient and formulating plan 35 min
--- NOTE | 2018-03-12 12:49 | PN ---
Teaching Attending Note Name of Resident: Maddie Clark ATTENDING PHYSICIAN STATEMENT I saw and evaluated the patient. I reviewed the resident's note and discussed the case with the resident. I agree with the resident's findings and plan as documented. SUBJECTIVE:resting comfortable 1 large loose BM yesterday OBJECTIVE: Last Vital Signs Temp Pulse Resp BP Pulse Ox 96.2 F L 85 27 H 139/89 98 03/12/18 02:00 03/12/18 06:00 03/12/18 06:00 03/12/18 06:00 03/11/18 20:29 General mildly tachypnic, not using accessory muscles CV S1 S2 RRR no murmur/rub/gallop lungs coarse breath sounds B/L Abdomen soft. +dull to percussion, hypoactive BS +PEG LUQ in place. no drainage of bleeding noted Extremities contracted extremities ASSESSMENT AND PLAN: 23yo M from [place] with PMH cerebral palsy, mental retardation, functional quadriplegia was sent to the ER with acute hypoxic respiratory failure. was found to be 88% on RA which did not improve with nasal cannula and sent to the hospital. 1. Acute hypoxic respiratory failure- likely due to B/L PNA. currently 100% on non-rebreather. unable to titrate down yesterday, copious thick secretions on suctioning. remains tachypnic however appears comfortable. cont with frequent deep suctioning and chest PT. pulmonary on board 2. Severe sepsis due to B/L PNA and suspected cdiff-hypothermic last night 96.2. cdiff ag +. currently on azithro/cefepime/vanco po. vanco was listed in home medications here on OCT however on [place] documentation it appears pt was no longer receiving. 1 loose BM yesterday. appears no longer having diarrhea. cdiff PCR sent out. will await for results prior to stopping vanco po. ID on board. contact precautions. f/u cx 3. Elevated LFT- liekly due to severe sepsis. u/s showing fatty infilration of liver. now trending down. hepatitis panel pending 4. hyperkalemia- was on standing doses of potassium supplementation. will d/c and monitor 5. hypernatremia- resolved. d/c ivf 6. hypoglycemia- improved. 7. ileus- seen on CT. less distention today. appear may be more chronic. tolerating TF. GI on board 8. MR 9. CP 10. epilepsy- no seizure like activity. on vimpat/keppra 11. DVT ppx- hep sq 12. MICU monitoring due to tenuous respiratory status. The care of this patient involved high complexity decision making to prevent further life threatening deterioration of the patient's condition and/or to evaluate & treat vital organ system(s) failure or risk of . 32 minutes
[2018-03-12] MEDS: VANCOMYCIN 250 MG/5 ML ORAL SOLUTION PO SCH (14:10)
--- NOTE | 2018-03-12 19:02 | PN ---
Physical Exam: SUBJECTIVE: Patient seen and examined today in icu. No longer on NRB, switched to high flow oxygen 50L 80% FiO2. OBJECTIVE: Vital Signs Period Temp Pulse Resp BP Sys/Jay Pulse Ox Last 24 Hr 96.2 F-98.4 F 66-92 22-43 109-139/81-89 92-98 GENERAL: Overall less distress. HEAD: Normal with no signs of trauma. ENT: Tongue protrusion. Erythema of tongue. NECK: Not using accessory muscles LUNGS: Coarse rhonchi throughout HEART: -m/r/g, RRR ABDOMEN: Abdomen less distended. EXTREMITIES: small ulcer on ring finger left hand. Extremities contracted. SKIN: moist. Laboratory Results - last 24 hr 03/09/18 03/09/18 03/09/18 10:10 15:53 22:44 WBC RBC Hgb Hct MCV MCH MCHC RDW Plt Count MPV Absolute Neuts (auto) Neutrophils % Lymphocytes % Monocytes % Eosinophils % Basophils % Nucleated RBC % Sodium Potassium Chloride Carbon Dioxide Anion Gap BUN Creatinine Creat Clearance w eGFR POC Glucometer 93.53776 142.45706 139.94733 Random Glucose Calcium Phosphorus Magnesium Total Bilirubin AST ALT Alkaline Phosphatase Total Protein Albumin Hep Bs Antibody, Quant 03/10/18 03/10/18 03/10/18 06:36 08:15 11:13 WBC RBC Hgb Hct MCV MCH MCHC RDW Plt Count MPV Absolute Neuts (auto) Neutrophils % Lymphocytes % Monocytes % Eosinophils % Basophils % Nucleated RBC % Sodium Potassium Chloride Carbon Dioxide Anion Gap BUN Creatinine Creat Clearance w eGFR POC Glucometer 92.20605 131.56203 Random Glucose Calcium Phosphorus Magnesium Total Bilirubin AST ALT Alkaline Phosphatase Total Protein Albumin Hep Bs Antibody, Quant <3.1 L 03/12/18 03/12/18 07:30 07:30 WBC 9.5 RBC 3.29 L Hgb 10.5 L Hct 31.3 L MCV 95.1 MCH 31.8 MCHC 33.5 RDW 16.5 H Plt Count 91 L MPV 9.3 Absolute Neuts (auto) 7.3 Neutrophils % 77.0 Lymphocytes % 16.3 D Monocytes % 5.2 Eosinophils % 1.2 Basophils % 0.3 Nucleated RBC % 0 Sodium 144 Potassium 5.5 H Chloride 114 H Carbon Dioxide 27 Anion Gap 3 L BUN 8 Creatinine 0.2 L Creat Clearance w eGFR > 60 POC Glucometer Random Glucose 66 L Calcium 8.7 Phosphorus 3.4 Magnesium 1.9 Total Bilirubin 0.3 AST 58 H D ALT 130 H Alkaline Phosphatase 362 H D Total Protein 5.9 L Albumin 2.5 L Hep Bs Antibody, Quant Active Medications Generic Name Dose Route Start Last Admin Trade Name Lazaro PRN Reason Stop Dose Admin Albuterol Sulfate 1 amp 03/09/18 05:09 03/12/18 10:07 Ventolin 0.083% Nebulizer Soln - NEB 1 amp Q4H PRN Administration SHORT OF BREATH/WHEEZING Bacitracin/Polymyxin B Sulfate 1 applic 03/09/18 19:00 03/12/18 09:50 Polysporin Ointment - TP 1 applic BID AUNG Administration Diazepam 2 mg 03/09/18 06:45 03/12/18 14:11 Valium - PO 2 mg TID AUNG Administration Gabapentin 400 mg 03/09/18 10:00 03/12/18 10:25 Neurontin - PO 400 mg BID AUNG Administration Heparin Sodium (Porcine) 5,000 unit 03/09/18 06:15 03/12/18 14:10 Heparin - SQ 5,000 unit TID AUNG Administration Cefepime HCl 2 gm/ Dextrose 100 mls @ 200 mls/hr 03/09/18 18:00 03/12/18 17: 14 IVPB 200 mls/hr Q8H-IV AUNG Administration Protocol Azithromycin 500 mg/ Dextrose 250 mls @ 250 mls/hr 03/12/18 10:00 03/12/18 09 :49 IVPB 250 mls/hr DAILY AUNG Administration Lacosamide 50 mg 03/09/18 10:00 03/12/18 10:27 Vimpat - PO 50 mg BID AUNG Administration Levetiracetam 1,500 mg 03/09/18 10:00 03/12/18 10:26 Keppra Oral Solution - PO 1,500 mg DAILY AUNG Administration Levetiracetam 1,750 mg 03/09/18 22:00 03/11/18 21:06 Keppra Oral Solution - PO 1,750 mg HS AUNG Administration Loratadine 10 mg 03/11/18 15:30 03/12/18 10:25 Claritin - PO 10 mg DAILY AUNG Administration Montelukast Sodium 5 mg 03/09/18 22:00 03/11/18 21:06 Singulair - PO 5 mg HS AUNG Administration Multi-Ingredient Ointment 1 applic 03/09/18 10:00 03/12/18 10:35 Zinc Oxide TP 1 applic BID AUNG Administration Phenobarbital 20 mg 03/09/18 12:00 03/12/18 10:25 Phenobarbital Liquid - PEG 20 mg DAILY AUNG Administration Saliva Substitute 1 applic 03/09/18 17:15 03/12/18 09:50 Mouthkote Solution - MM 1 applic DAILY AUNG Administration Scopolamine HBr 1 patch 03/09/18 10:00 03/11/18 09:13 Transderm-Scop - TD 1 patch Q48H AUNG Administration Vancomycin HCl 125 mg 03/11/18 00:00 03/12/18 17:15 Vancomycin Oral Solution GT 125 mg Q6HPO AUNG Administration ASSESSMENT/PLAN: Pt is a 23 y/o M with pmh mr, cerebral palsy, quadriplegia, seizure disorder, constipation, as well as a perforated viscous s/p laparotomy. Acute Respiratory Failure 2/2 aspiration pneumonia - Chest CT 03/09- extensive b/l pulmonary consolidation with poor aeration of lung ortiz, marked air and distension of large colon, no evidence of obstruction. Chest Xray today 03/12- right side atelectasis increased. - NO LONGER ON NON-REBREATHER. NOW ON HIGH FLOW O2. BIPAP not best for this patient considering functional status - Albuterol 1 amp neb, montelukast 5 mg po -Vanco Cefepime Azithrmycin. Stop Vanco PER ID. ID + for C Diff antigen -Metronidazole D/C'ed per ID. Low suspicion of intrabd infection. Neuro Seizure d/o Keppra Phenobarbital Valium G.I Prior Xrays revealed dilation of colon, air distension. Pt less distended s/p rectal tube insertion (03/09) FEN No Fluids Monitor Electrolytes Enteral feeds DVT ppx: Heparin 5,000 U SQ Dispo Continue to monitor in icu Visit type - Emergency Visit Emergency Visit: Yes ED Registration Date: 03/09/18 Care time: The patient presented to the Emergency Department on the above date and was hospitalized for further evaluation of their emergent condition. - New Patient This patient is new to me today: No - Critical Care Critical Care patient: Yes Total Critical Care Time (in minutes): 35 Critical Care Statement: The care of this patient involved high complexity decision making to prevent further life threatening deterioration of the patient 's condition and/or to evaluate & treat vital organ system(s) failure or risk of failure.
--- NOTE | 2018-03-12 20:17 | PN ---
Physical Exam: SUBJECTIVE: Patient seen and examined resting comfortably in ICU. Large loose BM as per nursing. No other acute events over night. OBJECTIVE: Vital Signs Period Temp Pulse Resp BP Sys/Jay Pulse Ox Last 24 Hr 96.2 F-98.4 F 66-92 22-43 109-139/81-89 92-98 GENERAL: Sitting upright at a 40 degree angle, nonverbal LUNGS: Tachypnic, Rhonchi present throughout, On Nonrebreather HEART: Regular rate and rhythm, S1, S2 without murmur, rub or gallop. ABDOMEN: Soft, Distended, Hypoactive bowel sounds, PEG tube present in LUQ without bleeding, drainage or surrounding erythema EXTREMITIES: Upper extremities Contracted B/L Laboratory Results - last 24 hr 03/12/18 03/12/18 07:30 07:30 WBC 9.5 RBC 3.29 L Hgb 10.5 L Hct 31.3 L MCV 95.1 MCH 31.8 MCHC 33.5 RDW 16.5 H Plt Count 91 L MPV 9.3 Absolute Neuts (auto) 7.3 Neutrophils % 77.0 Lymphocytes % 16.3 D Monocytes % 5.2 Eosinophils % 1.2 Basophils % 0.3 Nucleated RBC % 0 Sodium 144 Potassium 5.5 H Chloride 114 H Carbon Dioxide 27 Anion Gap 3 L BUN 8 Creatinine 0.2 L Creat Clearance w eGFR > 60 POC Glucometer Random Glucose 66 L Calcium 8.7 Phosphorus 3.4 Magnesium 1.9 Total Bilirubin 0.3 AST 58 H D ALT 130 H Alkaline Phosphatase 362 H D Total Protein 5.9 L Albumin 2.5 L Hep Bs Antibody, Quant Active Medications Albuterol Sulfate (Ventolin 0.083% Nebulizer Soln -) 1 amp NEB Q4H PRN PRN Reason: SHORT OF BREATH/WHEEZING Last Admin: 03/12/18 10:07 Dose: 1 amp Bacitracin/Polymyxin B Sulfate (Polysporin Ointment -) 1 applic TP BID [facility] Last Admin: 03/12/18 09:50 Dose: 1 applic Diazepam (Valium -) 2 mg PO TID [facility] Last Admin: 03/12/18 14:11 Dose: 2 mg Gabapentin (Neurontin -) 400 mg PO BID [facility] Last Admin: 03/12/18 10:25 Dose: 400 mg Heparin Sodium (Porcine) (Heparin -) 5,000 unit SQ TID [facility] Last Admin: 03/12/18 14:10 Dose: 5,000 unit Cefepime HCl 2 gm/ Dextrose 100 mls @ 200 mls/hr IVPB Q8H-IV [facility]; Protocol Last Admin: 03/12/18 17:14 Dose: 200 mls/hr Azithromycin 500 mg/ Dextrose 250 mls @ 250 mls/hr IVPB DAILY [facility] Last Admin: 03/12/18 09:49 Dose: 250 mls/hr Lacosamide (Vimpat -) 50 mg PO BID [facility] Last Admin: 03/12/18 10:27 Dose: 50 mg Levetiracetam (Keppra Oral Solution -) 1,500 mg PO DAILY [facility] Last Admin: 03/12/18 10:26 Dose: 1,500 mg Levetiracetam (Keppra Oral Solution -) 1,750 mg PO HS [facility] Last Admin: 03/11/18 21:06 Dose: 1,750 mg Loratadine (Claritin -) 10 mg PO DAILY [facility] Last Admin: 03/12/18 10:25 Dose: 10 mg Montelukast Sodium (Singulair -) 5 mg PO HS [facility] Last Admin: 03/11/18 21:06 Dose: 5 mg Multi-Ingredient Ointment (Zinc Oxide) 1 applic TP BID [facility] Last Admin: 03/12/18 10:35 Dose: 1 applic Phenobarbital (Phenobarbital Liquid -) 20 mg PEG DAILY [facility] Last Admin: 03/12/18 10:25 Dose: 20 mg Saliva Substitute (Mouthkote Solution -) 1 applic MM DAILY [facility] Last Admin: 03/12/18 09:50 Dose: 1 applic Scopolamine HBr (Transderm-Scop -) 1 patch TD Q48H [facility] Last Admin: 03/11/18 09:13 Dose: 1 patch Vancomycin HCl (Vancomycin Oral Solution) 125 mg GT Q6HPO [facility] Last Admin: 03/12/18 17:15 Dose: 125 mg Microbiology 03/11/18 13:33 Nares - Left Nares MRSA Screen - Final NO MRSA ISOLATED 03/08/18 23:11 Blood - Peripheral Venous Blood Culture - Preliminary NO GROWTH OBTAINED AFTER 72 HOURS, INCUBATION TO CONTINUE FOR 2 DAYS. 03/08/18 23:11 Blood - Peripheral Venous Blood Culture - Preliminary NO GROWTH OBTAINED AFTER 72 HOURS, INCUBATION TO CONTINUE FOR 2 DAYS. 03/08/18 23:11 Urine - Urine - Catheterized Urine Culture - Final NO GROWTH OBTAINED 03/09/18 02:41 Stool Clostridium difficile Antigen (CHLOÉ) - Final 03/09/18 02:41 Stool Clostridium difficile Toxin Assay - Final IMAGING - CXR: Imaging reveals scoliosis with extensive spinal support rods, weak inspiration with bilateral effusions, infiltrates and large heart. There is abdominal distention which is quite diffuse. The bones and soft tissues are intact. - CT Abdomen Pelvis: Extensive bilateral pulmonary consolidation with poor aeration of the lung ortiz. Marked air and fluid distention of the entire colon with no gross evidence of obstruction. Markedly limited study as described above. ASSESSMENT/PLAN: 23 y/o M resident of [place] with PMHx of profound developmental delay, cerebral palsy, functional quadriplegia, non-interactive at baseline, reactive airway disease, seizure disorder was admitted for Acute hypoxic respiratory failure. 1. Acute hypoxic respiratory failure - Tachypnic - 88% Saturation did not improve on 5L via NC at [place] as per chart - Improved to >90% on 100% Nonrebreather after deep suctioning - Consider Aspiration pneumonia - Chest physio therapy - Frequent deep suctioning - Pulmonology consulted, appreciate rec's 2. Severe Sepsis - Likely due to HCAP - Temp reaching 96.2 overnight - Lactic Acid: 1.3 - Continue tx with Azithromycin, Cefepime, Vancomycin - ID Consulted, appreciate rec's - GI Consulted, appreciate rec's - Cultures pending 3. Diarrhea - Suspected C. Diff, Stool was positive for C. Diff antigen on this visit - Pending C. Diff PCR - Lactulose on home medication list; clarify from NH whether he is still getting it - Hx of stool C.Diff antigen positive but toxin negative--given oral vancomycin in 08/2017 - No loose stools since ICU Admission - Continue with Oral Vancomycin 4. Hypokalemia - Resolved. Was Hyperkalemic this morning (5.5) - Discontinue KCL 40meq PO TID 5. HyperNatremia - Resolved - Discontinue D5w 6. Hypoglycemia - Improving on tube feeds - Continue BGM 7. Ileus - Seen on CT - PEG tube already in place to suction - Abdominal distension improved - Hypoactive bowel sounds - Tolerating Tube feed - GI Consulted, appreciate rec's 8. Acute transaminitis - Elevated LFTs may be part of the sepsis syndrome - Trending down - Consider abdominal Ultrasound - Hepatitis panel pending 9. Seizure disorder - Continue Keppra 10. FEN - IV D5 NS - K+ 5.5 - Nutrition via PEG 11. DVT ppx - Heparin 5000U TID SQ Dispo - ICU due to respiratory status Visit type - Emergency Visit Emergency Visit: Yes ED Registration Date: 03/09/18 Care time: The patient presented to the Emergency Department on the above date and was hospitalized for further evaluation of their emergent condition. - New Patient This patient is new to me today: No - Critical Care Critical Care patient: No
[2018-03-12] MEDS: MONTELUKAST NA 5 MG TAB.CHEW PO SCH (22:21)
[2018-03-13] MEDS: ALBUTEROL SO4 0.083% IH SOL 2.5 MG/3 ML VIAL.NEB. NEB PRN (00:40)
[2018-03-13] MEDS: CEFEPIME 2 GM in DEXTROSE 5%-WATER 100 ML IVPB SCH ×3 (01:22→17:02)
[2018-03-13] MEDS: HEPARIN NA (PORCINE) 5,000 UNITS/ML 1ML VIAL SQ SCH ×3 (06:21→21:51)
[2018-03-13] MEDS: diazePAM 2 MG TABLET PO SCH ×3 (06:21→21:51)
[2018-03-13] MEDS: VANCOMYCIN 250 MG/5 ML ORAL SOLUTION GT SCH ×4 (06:21→17:02)
--- NOTE | 2018-03-13 07:24 | PN ---
Progress Note (short form) - Note Progress Note: resting comfortable Current Medications Generic Name Dose Route Start Last Admin Trade Name Freq PRN Reason Stop Dose Admin Albuterol Sulfate 1 amp 03/09/18 05:09 03/13/18 00:40 Ventolin 0.083% Nebulizer Soln - NEB 1 amp Q4H PRN Administration SHORT OF BREATH/WHEEZING Bacitracin/Polymyxin B Sulfate 1 applic 03/09/18 19:00 03/12/18 22:21 Polysporin Ointment - TP 1 applic BID AUNG Administration Diazepam 2 mg 03/09/18 06:45 03/13/18 06:21 Valium - PO 2 mg TID AUNG Administration Gabapentin 400 mg 03/09/18 10:00 03/12/18 22:18 Neurontin - PO 400 mg BID AUNG Administration Heparin Sodium (Porcine) 5,000 unit 03/09/18 06:15 03/13/18 06:21 Heparin - SQ 5,000 unit TID AUNG Administration Cefepime HCl 2 gm/ Dextrose 100 mls @ 200 mls/hr 03/09/18 18:00 03/13/18 01: 22 IVPB 200 mls/hr Q8H-IV AUNG Administration Protocol Azithromycin 500 mg/ Dextrose 250 mls @ 250 mls/hr 03/12/18 10:00 03/12/18 09 :49 IVPB 250 mls/hr DAILY AUNG Administration Lacosamide 50 mg 03/09/18 10:00 03/12/18 22:17 Vimpat - PO 50 mg BID AUNG Administration Levetiracetam 1,500 mg 03/09/18 10:00 03/12/18 10:26 Keppra Oral Solution - PO 1,500 mg DAILY AUNG Administration Levetiracetam 1,750 mg 03/09/18 22:00 03/12/18 22:37 Keppra Oral Solution - PO 1,750 mg HS AUNG Administration Loratadine 10 mg 03/11/18 15:30 03/12/18 10:25 Claritin - PO 10 mg DAILY AUNG Administration Montelukast Sodium 5 mg 03/09/18 22:00 03/12/18 22:21 Singulair - PO 5 mg HS AUNG Administration Multi-Ingredient Ointment 1 applic 03/09/18 10:00 03/12/18 22:20 Zinc Oxide TP 1 applic BID AUNG Administration Phenobarbital 20 mg 03/09/18 12:00 03/12/18 10:25 Phenobarbital Liquid - PEG 20 mg DAILY AUNG Administration Saliva Substitute 1 applic 03/09/18 17:15 03/12/18 09:50 Mouthkote Solution - MM 1 applic DAILY AUNG Administration Scopolamine HBr 1 patch 03/09/18 10:00 03/11/18 09:13 Transderm-Scop - TD 1 patch Q48H AUNG Administration Vancomycin HCl 125 mg 03/11/18 00:00 03/13/18 06:21 Vancomycin Oral Solution GT 125 mg Q6HPO AUNG Administration Last Vital Signs Temp Pulse Resp BP Pulse Ox 97.6 F 72 11 L 122/70 95 03/13/18 06:00 03/13/18 06:00 03/13/18 06:00 03/13/18 06:00 03/13/18 05:00 General NAD CV S1 S2 RRR no murmur/rub/gallop lungs decreased breath sounds anteriorly Abdomen soft. +dull to percussion, hypoactive BS +PEG LUQ in place. no drainage of bleeding noted Extremities contracted extremities ASSESSMENT AND PLAN: 23yo M from [place] with PMH cerebral palsy, mental retardation, functional quadriplegia was sent to the ER with acute hypoxic respiratory failure. was found to be 88% on RA which did not improve with nasal cannula and sent to the hospital. 1. Acute hypoxic respiratory failure- likely due to B/L PNA. switched to high flow oxygen. less tachypnic and lungs sound more clear today. CXR does not show any noticeable differences on my read. cont with frequent deep suctioning and chest PT. pulmonary on board 2. Severe sepsis due to B/L PNA and suspected cdiff- cdiff ag +. currently on azithro/cefepime/vanco po. vanco was listed in home medications here on [place] however on [place] documentation it appears pt was no longer receiving. appears no longer having diarrhea. cdiff PCR sent out. will await for results prior to stopping vanco po. ID on board. contact precautions. f/u cx 3. Elevated LFT- liekly due to severe sepsis. u/s showing fatty infilration of liver. awaiting repeat labs. hepatitis panel negative 4. hyperkalemia- was on standing doses of potassium supplementation. awaiting AM labs 5. hypernatremia- resolved. 6. hypoglycemia- improved. 7. ileus- seen on CT. appear may be more chronic. tolerating TF. GI on board 8. MR 9. CP 10. epilepsy- no seizure like activity. on vimpat/keppra 11. DVT ppx- hep sq 12. MICU monitoring due to tenuous respiratory status. The care of this patient involved high complexity decision making to prevent further life threatening deterioration of the patient's condition and/or to evaluate & treat vital organ system(s) failure or risk of . 35 minutes Visit type - Emergency Visit Emergency Visit: Yes ED Registration Date: 03/09/18 Care time: The patient presented to the Emergency Department on the above date and was hospitalized for further evaluation of their emergent condition. - New Patient This patient is new to me today: No - Critical Care Critical Care patient: No - Discharge Referral Referred to [facility] Med P.C.: No
--- NOTE | 2018-03-13 07:56 | PN ---
Progress Note (short form) - Note Progress Note: resting comfortably on high flow oxygen Vital Signs Period Temp Pulse Resp BP Sys/Jay Pulse Ox Last 24 Hr 97.2 F-98.4 F 66-92 11-43 90-128/46-89 92-99 cor-rrr lungs decreased bas at bases abd soft ext bilateral club feet CBC, BMP 03/12/18 07:30 03/12/18 07:30 Microbiology 03/08/18 23:11 Blood - Peripheral Venous Blood Culture - Preliminary NO GROWTH OBTAINED AFTER 96 HOURS, INCUBATION TO CONTINUE FOR 1 DAYS. 03/08/18 23:11 Blood - Peripheral Venous Blood Culture - Preliminary NO GROWTH OBTAINED AFTER 96 HOURS, INCUBATION TO CONTINUE FOR 1 DAYS. 03/11/18 13:33 Nares - Left Nares MRSA Screen - Final NO MRSA ISOLATED 03/08/18 23:11 Urine - Urine - Catheterized Urine Culture - Final NO GROWTH OBTAINED 03/09/18 02:41 Stool Clostridium difficile Antigen (CHLOÉ) - Final 03/09/18 02:41 Stool Clostridium difficile Toxin Assay - Final a/p respiratory failure pneumonia continue cefepime/zithromax on po vancomycin- +cdiff antigen
[2018-03-13 08:44] LABS: BASO % 0.5 % (0-2.0); EOS % 2.3 % (0-4.5); HEMATOCRIT 31.8 % (35.4-49); HEMOGLOBIN 10.6 GM/dL (11.7-16.9); LYMPH % 27.7 % (8-40); MCH 31.6 pg (25.7-33.7); MCHC 33.4 g/dl (32.0-35.9); MEAN CELL VOLUME 94.7 fl (80-96); MEAN PLT VOLUME 9.7 fl (7.5-11.1); MONO % 6.5 % (3.8-10.2); PLATELET COUNT 92 K/MM3 (134-434); RBC 3.36 M/mm3 (4.00-5.60); RDW 16.3 % (11.9-15.9); WHITE BLOOD COUNT 7.3 K/mm3 (4.0-10.0)
[2018-03-13 09:24] LABS: CALCIUM 8.5 mg/dL (8.5-10.1); CHLORIDE 111 mmol/L (98-107); POTASSIUM 3.7 mmol/L (3.5-5.1); SODIUM 145 mmol/L (136-145)
[2018-03-13 09:29] LABS: ALBUMIN 2.5 g/dl (3.4-5.0); ALK PHOS 329 U/L (45-117); ANION GAP 9 (8-16); BILIRUBIN,TOTAL 0.5 mg/dL (0.2-1.0); BLOOD UREA NITROGEN 8 mg/dL (7-18); CO2 25 mmol/L (21-32); CREATININE 0.3 mg/dL (0.7-1.3); GLUCOSE,RANDOM 67 mg/dL (74-106); MAGNESIUM 1.7 mg/dL (1.8-2.4); PHOSPHOROUS 3.5 mg/dL (2.5-4.9); SGOT/AST 47 U/L (15-37); SGPT/ALT 107 U/L (12-78); TOT PROT 6.1 g/dl (6.4-8.2)
[2018-03-13] MEDS ORDERED: PT OWN MED DRAWER 7, Y5N ONE ×3 (09:41→21:49)
[2018-03-13] MEDS ORDERED: MAGNESIUM SULF 50% (8.12 MEQ/2 ML-1 GM VIAL) IVPB ONE (09:48)
[2018-03-13] MEDS: GABAPENTIN 400 MG CAPSULE (FP) PO SCH ×2 (09:55→21:51)
[2018-03-13] MEDS: LORATADINE 10 MG TABLET PO SCH (09:55)
[2018-03-13] MEDS: LACOSAMIDE 50 MG TABLET PO SCH ×2 (09:56→21:51)
[2018-03-13] MEDS: levETIRAcetam 500 MG/5 ML ORAL SOLUTION (UNIT-DOSE CUPS) PO SCH ×2 (09:57→22:15)
[2018-03-13] MEDS: PHENobarbital 20 MG/5 ML UNIT-DOSE CUP PEG SCH (09:57)
[2018-03-13] MEDS: SCOPOLAMINE HYDROBROMIDE 1 PATCH PATCH.TD72 TD SCH (09:58)
[2018-03-13] MEDS: AZITHROMYCIN IVPB 500 MG in DEXTROSE 5%-WATER - 250 ML IVPB SCH (09:59)
[2018-03-13] MEDS ORDERED: MAGNESIUM 1GM/D5W - 1 GM/100 ML IVPB IVPB ONE (10:00)
[2018-03-13] MEDS: ZINC OXIDE 20% TOPICAL OINTMENT 30 GM TUBE TP SCH ×2 (10:02→21:53)
[2018-03-13] MEDS: LYTES/YERBA SANTA 240 ML BOTTLE MM SCH (10:03)
[2018-03-13] MEDS: BACITRACIN/POLYMYXIN B SULFATE 15 GM TUBE TP SCH ×2 (10:04→21:52)
--- NOTE | 2018-03-13 11:57 | PN ---
Progress Note (short form) - Note Progress Note: PULM/CCM SUBJECTIVE: Patient seen and examined in the ICU. On HFNC, no fever, resp status improved CXR: largely unchanged airspace disease OBJECTIVE: Vital Signs Temp 97.8 F 03/13/18 10:00 Pulse 60 03/13/18 10:00 Resp 18 03/13/18 10:00 BP 109/84 03/13/18 10:00 Pulse Ox 97 03/13/18 11:26 Intake & Output 03/12/18 03/12/18 03/13/18 11:59 23:59 11:59 Intake Total 549 867 7441 Output Total 600 Balance 360 796 412 Weight 38.7 kg Intake: IV 336 462 D5w - 1,000 ml @ 42 mls/ 336 462 hr IV Q23H AUNG Rx#: [id number] IVPB 100 200 100 Tube Feeding 200 100 330 Tube Irrigant 60 160 120 Output: Urine 600 Jacobson 600 Other: Voiding Method Indwelling Catheter Indwelling Catheter Indwelling Catheter Bowel Movement No No No Weight Measurement Method Built in [facility] Gen: comfortable on HFNC Heart: RRR Lung: scattered rhonchi Abd: soft, nontender, PEG Ext: contracted, no edema Neuro: opens eyes to voice, non verb CBC, BMP 03/13/18 06:30 03/13/18 06:30 ASSESSMENT AND PLAN: Acute Hypoxic Respiratory Failure Pneumonia likely Aspiration Severe Sepsis Elevated LFTs likely ischemic injury Abdominal Distention/Constipation Seizure Disorder Mental Retardation - Trial of HF NC O2 - ABX : cefepime, azith, PO Vanco - Aspiration precautions - AEDs - DVT prophylaxis - BD TX - continue ICU monitoring, to floor once off HFNC Deirdre [facility]ER [id number]
[2018-03-13] MEDS: MONTELUKAST NA 5 MG TAB.CHEW PO SCH (22:15)
[2018-03-14] MEDS: VANCOMYCIN 250 MG/5 ML ORAL SOLUTION GT SCH ×4 (00:13→16:59)
[2018-03-14] MEDS: CEFEPIME 2 GM in DEXTROSE 5%-WATER 100 ML IVPB SCH ×3 (02:06→16:59)
[2018-03-14] MEDS ORDERED: PT OWN MED DRAWER 7, Y5N ONE ×4 (03:02→21:03)
[2018-03-14] MEDS: HEPARIN NA (PORCINE) 5,000 UNITS/ML 1ML VIAL SQ SCH ×3 (06:08→21:10)
[2018-03-14] MEDS: diazePAM 2 MG TABLET PO SCH ×3 (06:08→21:12)
[2018-03-14 06:24] LABS: HEMATOCRIT 30.4 % (35.4-49); HEMOGLOBIN 10.3 GM/dL (11.7-16.9); MCH 31.9 pg (25.7-33.7); MCHC 33.8 g/dl (32.0-35.9); MEAN CELL VOLUME 94.2 fl (80-96); MEAN PLT VOLUME 10.6 fl (7.5-11.1); PLATELET COUNT 114 K/MM3 (134-434); RBC 3.23 M/mm3 (4.00-5.60); RDW 16.4 % (11.9-15.9); WHITE BLOOD COUNT 8.6 K/mm3 (4.0-10.0)
[2018-03-14 06:39] LABS: ALBUMIN 2.4 g/dl (3.4-5.0); ANION GAP 8 (8-16); BILIRUBIN,TOTAL 0.4 mg/dL (0.2-1.0); BLOOD UREA NITROGEN 9 mg/dL (7-18); CALCIUM 8.2 mg/dL (8.5-10.1); CHLORIDE 114 mmol/L (98-107); CO2 26 mmol/L (21-32); CREATININE 0.3 mg/dL (0.7-1.3); GLUCOSE,RANDOM 89 mg/dL (74-106); MAGNESIUM 1.7 mg/dL (1.8-2.4); POTASSIUM 3.7 mmol/L (3.5-5.1); SGOT/AST 37 U/L (15-37); SGPT/ALT 85 U/L (12-78); SODIUM 148 mmol/L (136-145)
[2018-03-14 06:40] LABS: ALK PHOS 294 U/L (45-117)
--- NOTE | 2018-03-14 08:36 | PN ---
Progress Note (short form) - Note Progress Note: day #5 antiibotics resting comfortably on high flow oxygen Vital Signs Period Temp Pulse Resp BP Sys/Jay Pulse Ox Last 24 Hr 97.8 F-98.2 F 60-94 18-32 94-124/49-84 94-100 cor-rrr lungs decreased bs at bases abd soft,nt ext no edema CBC, BMP 03/14/18 05:30 03/14/18 05:30 Microbiology 03/08/18 23:11 Blood - Peripheral Venous Blood Culture - Final NO GROWTH AFTER 5 DAYS INCUBATION 03/08/18 23:11 Blood - Peripheral Venous Blood Culture - Final NO GROWTH AFTER 5 DAYS INCUBATION 03/11/18 13:33 Nares - Left Nares MRSA Screen - Final NO MRSA ISOLATED 03/08/18 23:11 Urine - Urine - Catheterized Urine Culture - Final NO GROWTH OBTAINED 03/09/18 02:41 Stool Clostridium difficile Antigen (CHLOÉ) - Final 03/09/18 02:41 Stool Clostridium difficile Toxin Assay - Final a/p respiratory failure pneumonia continue cefepime/zithromax day #5 antiibotics on po vancomycin- +cdiff antigen platelets improving
[2018-03-14] MEDS: LORATADINE 10 MG TABLET PO SCH (08:59)
--- NOTE | 2018-03-14 08:59 | PN ---
Progress Note (short form) - Note Progress Note: PULM/CCM SUBJECTIVE: Patient seen and examined in the ICU. Remains on HFNC, no fever, resp status improved...weaning Fio2/Flow tachypenic but no distress CXR: largely unchanged airspace disease (none new today) OBJECTIVE: Vital Signs Temp 98.2 F 03/14/18 02:00 Pulse 76 03/14/18 07:00 Resp 32 H 03/14/18 07:00 BP 100/65 03/14/18 07:30 Pulse Ox 98 03/14/18 07:58 Intake & Output 03/13/18 03/13/18 03/14/18 11:59 23:59 11:59 Intake Total 1012 1258 748 Output Total 703 613 6677 Balance 412 758 -252 Weight 38.7 kg 38.8 kg Intake: IV 462 168 294 D5w - 1,000 ml @ 42 mls/ 462 hr IV Q23H [facility] Rx#: [id number] ns@42cc 168 294 IVPB 100 350 100 Tube Feeding 330 560 294 Tube Irrigant 120 180 60 Output: Urine 409 799 0236 Jacobson [phone] Other: Voiding Method Indwelling Catheter Indwelling Catheter Indwelling Catheter Bowel Movement No No Weight Measurement Method Built in [facility] Built in [facility] Gen: comfortable on HFNC, no distress, Heart: RRR Lung: scattered rhonchi, diminished bases Abd: soft, nontender, PEG Ext: contracted, no edema Neuro: opens eyes to voice, non verb CBC,CMP WBC 8.6 K/mm3 (4.0-10.0) 03/14/18 05:30 RBC 3.23 M/mm3 (4.00-5.60) L 03/14/18 05:30 Hgb 10.3 GM/dL (11.7-16.9) L 03/14/18 05:30 Hct 30.4 % (35.4-49) L 03/14/18 05:30 MCV 94.2 fl (80-96) 03/14/18 05:30 MCH 31.9 pg (25.7-33.7) 03/14/18 05:30 MCHC 33.8 g/dl (32.0-35.9) 03/14/18 05:30 RDW 16.4 % (11.9-15.9) H 03/14/18 05:30 Plt Count 114 K/MM3 (134-434) L D 03/14/18 05:30 MPV 10.6 fl (7.5-11.1) 03/14/18 05:30 Absolute Neuts (auto) 4.6 # 03/13/18 06:30 Neutrophils % 63.0 % (42.8-82.8) 03/13/18 06:30 Lymphocytes % 27.7 % (8-40) D 03/13/18 06:30 Monocytes % 6.5 % (3.8-10.2) 03/13/18 06:30 Eosinophils % 2.3 % (0-4.5) D 03/13/18 06:30 Basophils % 0.5 % (0-2.0) 03/13/18 06:30 Nucleated RBC % 0 % (0-0) 03/13/18 06:30 Platelet Comment Giant platelets 03/08/18 23:11 ESR 58 mm/hr (0-10) H 03/10/18 06:30 Sodium 148 mmol/L (136-145) H 03/14/18 05:30 Potassium 3.7 mmol/L (3.5-5.1) 03/14/18 05:30 Chloride 114 mmol/L (98-107) H 03/14/18 05:30 Carbon Dioxide 26 mmol/L (21-32) 03/14/18 05:30 Anion Gap 8 (8-16) 03/14/18 05:30 BUN 9 mg/dL (7-18) 03/14/18 05:30 Creatinine 0.3 mg/dL (0.7-1.3) L 03/14/18 05:30 Creat Clearance w eGFR > 60 (>60) 03/14/18 05:30 POC Glucometer 131.38417 UNITS (80-120) 03/10/18 11:13 Random Glucose 89 mg/dL (74-106) D 03/14/18 05:30 Lactic Acid 1.3 mmol/L (0.0-2.0) 03/08/18 23:11 Calcium 8.2 mg/dL (8.5-10.1) L 03/14/18 05:30 Phosphorus 3.5 mg/dL (2.5-4.9) 03/13/18 06:30 Magnesium 1.7 mg/dL (1.8-2.4) L 03/14/18 05:30 Total Bilirubin 0.4 mg/dL (0.2-1.0) 03/14/18 05:30 AST 37 U/L (15-37) D 03/14/18 05:30 ALT 85 U/L (12-78) H D 03/14/18 05:30 Alkaline Phosphatase 294 U/L (45-117) H D 03/14/18 05:30 Creatine Kinase 317 IU/L (39-308) H 03/08/18 23:11 Creatine Kinase Index 1.4 % (0.0-5.0) 03/08/18 23:11 CK-MB (CK-2) 4.34 ng/mL (0.5-3.6) H 03/08/18 23:11 Troponin I < 0.02 ng/ml (0.00-0.05) 03/08/18 23:11 C-Reactive Protein 14.0 MG/DL (0.00-0.3) H 03/09/18 13:40 Total Protein 6.0 g/dl (6.4-8.2) L 03/14/18 05:30 Albumin 2.4 g/dl (3.4-5.0) L 03/14/18 05:30 ASSESSMENT AND PLAN: Acute Hypoxic Respiratory Failure Pneumonia likely Aspiration Severe Sepsis Elevated LFTs likely ischemic injury Abdominal Distention/Constipation Seizure Disorder Mental Retardation - Trial of HF NC O2 , wean today - ABX : cefepime, azith, PO Vanco as per ID - Aspiration precautions - AEDs via PEG - DVT prophylaxis - BD TX - TF - increase Free water in TF, no further NS - continue ICU monitoring, to floor once off HFNC Deirdre LAWLER [id number]
[2018-03-14] MEDS: levETIRAcetam 500 MG/5 ML ORAL SOLUTION (UNIT-DOSE CUPS) PO SCH ×2 (09:00→21:18)
[2018-03-14] MEDS: LYTES/YERBA SANTA 240 ML BOTTLE MM SCH (09:01)
[2018-03-14] MEDS: GABAPENTIN 400 MG CAPSULE (FP) PO SCH ×2 (09:01→21:12)
[2018-03-14] MEDS: BACITRACIN/POLYMYXIN B SULFATE 15 GM TUBE TP SCH ×2 (09:02→21:13)
[2018-03-14] MEDS: LACOSAMIDE 50 MG TABLET PO SCH ×2 (09:02→21:12)
[2018-03-14] MEDS: PHENobarbital 20 MG/5 ML UNIT-DOSE CUP PEG SCH (09:02)
[2018-03-14] MEDS: ZINC OXIDE 20% TOPICAL OINTMENT 30 GM TUBE TP SCH ×2 (09:03→21:13)
[2018-03-14] MEDS: AZITHROMYCIN IVPB 500 MG in DEXTROSE 5%-WATER - 250 ML IVPB SCH (09:04)
--- NOTE | 2018-03-14 14:06 | PN ---
Teaching Attending Note Name of Resident: Maddie Clark ATTENDING PHYSICIAN STATEMENT I saw and evaluated the patient. I reviewed the resident's note and discussed the case with the resident. I agree with the resident's findings and plan as documented. SUBJECTIVE:resting comfortable. RN reporting 1 small soft BM this AM OBJECTIVE: Last Vital Signs Temp Pulse Resp BP Pulse Ox 98 F 72 28 H 90/50 92 L 03/14/18 12:00 03/14/18 12:00 03/14/18 12:00 03/14/18 12:00 03/14/18 12:16 General NAD CV S1 S2 RRR no murmur/rub/gallop lungs decreased breath sounds anteriorly Abdomen soft. +dull to percussion, hypoactive BS +PEG LUQ in place. no drainage of bleeding noted Extremities contracted extremities ASSESSMENT AND PLAN: 23yo M from [place] with PMH cerebral palsy, mental retardation, functional quadriplegia was sent to the ER with acute hypoxic respiratory failure. was found to be 88% on RA which did not improve with nasal cannula and sent to the hospital. 1. Acute hypoxic respiratory failure- likely due to B/L PNA. on high flow oxygen. will attempt to titrate down oxygen requirements as tolerated.cont with frequent deep suctioning and chest PT. pulmonary on board 2. Severe sepsis due to B/L PNA and suspected cdiff- cdiff ag +. currently on azithro/cefepime/vanco po. cdiff PCR sent out. will await for results prior to stopping vanco po. ID on board. contact precautions. f/u cx 3. Elevated LFT- likely due to severe sepsis. u/s showing fatty infilration of liver.trending down 4. hyperkalemia- was on standing doses of potassium supplementation. resolved 5. hypernatremia- increase free water flushes to 40cc/H 6. hypoglycemia- improved. 7. ileus- seen on CT. appear may be more chronic. tolerating TF. GI on board 8. MR 9. CP 10. epilepsy- no seizure like activity. on vimpat/keppra 11. DVT ppx- hep sq 12. MICU monitoring due to tenuous respiratory status. The care of this patient involved high complexity decision making to prevent further life threatening deterioration of the patient's condition and/or to evaluate & treat vital organ system(s) failure or risk of . 30 minutes
--- NOTE | 2018-03-14 14:28 | PN ---
Physical Exam: SUBJECTIVE: Patient seen and examined resting comfortably in ICU. No other acute events over night. OBJECTIVE: Vital Signs Period Temp Pulse Resp BP Sys/Jay Pulse Ox Last 24 Hr 97.8 F-98.2 F 61-94 20-32 90-124/49-84 92-100 GENERAL: Sitting upright at a 40 degree angle, nonverbal LUNGS: Tachypnic, Rhonchi present however improved from previous exams, On HiFlo O2 HEART: Regular rate and rhythm, S1, S2 without murmur, rub or gallop. ABDOMEN: Soft, Distended, Hypoactive bowel sounds, PEG tube present in LUQ without bleeding, drainage or surrounding erythema EXTREMITIES: Upper extremities Contracted B/L Laboratory Results - last 24 hr 03/14/18 03/14/18 05:30 05:30 WBC 8.6 RBC 3.23 L Hgb 10.3 L Hct 30.4 L MCV 94.2 MCH 31.9 MCHC 33.8 RDW 16.4 H Plt Count 114 L D MPV 10.6 Sodium 148 H Potassium 3.7 Chloride 114 H Carbon Dioxide 26 Anion Gap 8 BUN 9 Creatinine 0.3 L Creat Clearance w eGFR > 60 Random Glucose 89 D Calcium 8.2 L Magnesium 1.7 L Total Bilirubin 0.4 AST 37 D ALT 85 H D Alkaline Phosphatase 294 H D Total Protein 6.0 L Albumin 2.4 L Active Medications Bacitracin/Polymyxin B Sulfate (Polysporin Ointment -) 1 applic TP BID [facility] Last Admin: 03/14/18 09:02 Dose: 1 applic Diazepam (Valium -) 2 mg PO TID [facility] Last Admin: 03/14/18 06:08 Dose: 2 mg Gabapentin (Neurontin -) 400 mg PO BID [facility] Last Admin: 03/14/18 09:01 Dose: 400 mg Heparin Sodium (Porcine) (Heparin -) 5,000 unit SQ TID [facility] Last Admin: 03/14/18 06:08 Dose: 5,000 unit Cefepime HCl 2 gm/ Dextrose 100 mls @ 200 mls/hr IVPB Q8H-IV [facility]; Protocol Last Admin: 03/14/18 09:00 Dose: 200 mls/hr Azithromycin 500 mg/ Dextrose 250 mls @ 250 mls/hr IVPB DAILY [facility] Last Admin: 03/14/18 09:04 Dose: 250 mls/hr Lacosamide (Vimpat -) 50 mg PO BID [facility] Last Admin: 03/14/18 09:02 Dose: 50 mg Levetiracetam (Keppra Oral Solution -) 1,500 mg PO DAILY [facility] Last Admin: 03/14/18 09:00 Dose: 1,500 mg Levetiracetam (Keppra Oral Solution -) 1,750 mg PO HS [facility] Last Admin: 03/13/18 22:15 Dose: 1,750 mg Loratadine (Claritin -) 10 mg PO DAILY [facility] Last Admin: 03/14/18 08:59 Dose: 10 mg Montelukast Sodium (Singulair -) 5 mg PO HS [facility] Last Admin: 03/13/18 22:15 Dose: 5 mg Multi-Ingredient Ointment (Zinc Oxide) 1 applic TP BID [facility] Last Admin: 03/14/18 09:03 Dose: 1 applic Phenobarbital (Phenobarbital Liquid -) 20 mg PEG DAILY [facility] Last Admin: 03/14/18 09:02 Dose: 20 mg Saliva Substitute (Mouthkote Solution -) 1 applic MM DAILY [facility] Last Admin: 03/14/18 09:01 Dose: 1 applic Scopolamine HBr (Transderm-Scop -) 1 patch TD Q48H [facility] Last Admin: 03/13/18 09:58 Dose: 1 patch Vancomycin HCl (Vancomycin Oral Solution) 125 mg GT Q6HPO [facility] Last Admin: 03/14/18 12:39 Dose: 125 mg Microbiology 03/08/18 23:11 Blood - Peripheral Venous Blood Culture - Final NO GROWTH AFTER 5 DAYS INCUBATION 03/08/18 23:11 Blood - Peripheral Venous Blood Culture - Final NO GROWTH AFTER 5 DAYS INCUBATION 03/11/18 13:33 Nares - Left Nares MRSA Screen - Final NO MRSA ISOLATED 03/08/18 23:11 Urine - Urine - Catheterized Urine Culture - Final NO GROWTH OBTAINED 03/09/18 02:41 Stool Clostridium difficile Antigen (CHLOÉ) - Final 03/09/18 02:41 Stool Clostridium difficile Toxin Assay - Final IMAGING - CXR: Imaging reveals scoliosis with extensive spinal support rods, weak inspiration with bilateral effusions, infiltrates and large heart. There is abdominal distention which is quite diffuse. The bones and soft tissues are intact. - CT Abdomen Pelvis: Extensive bilateral pulmonary consolidation with poor aeration of the lung ortiz. Marked air and fluid distention of the entire colon with no gross evidence of obstruction. Markedly limited study as described above. ASSESSMENT/PLAN: 23 y/o M resident of [place] with PMHx of profound developmental delay, cerebral palsy, functional quadriplegia, non-interactive at baseline, reactive airway disease, seizure disorder was admitted for Acute hypoxic respiratory failure. 1. Acute hypoxic respiratory failure - Tachypnic, Rhonchi improved however - 88% Saturation did not improve on 5L via NC at [place] as per chart - Currently on HiFlo O2, Continue Deep suctioning - Consider Aspiration pneumonia - Chest physio therapy - Frequent deep suctioning - Pulmonology consulted, appreciate rec's 2. Severe Sepsis - Likely due to HCAP - Lactic Acid: 1.3 - Continue tx with Azithromycin, Cefepime, Vancomycin - ID Consulted, appreciate rec's - GI Consulted, appreciate rec's - Cultures pending 3. Diarrhea - Suspected C. Diff, Stool was positive for C. Diff antigen on this visit - Pending C. Diff PCR - Lactulose on home medication list; clarify from NH whether he is still getting it - Hx of stool C.Diff antigen positive but toxin negative--given oral vancomycin in 08/2017 - No loose stools since ICU Admission - Continue with Oral Vancomycin 4. Hypokalemia - Resolved. Was Hyperkalemic this morning (5.5) - Discontinue KCL 40meq PO TID 5. HyperNatremia - Increased Free water added to tube feed 6. Hypoglycemia - Improving on tube feeds - Continue BGM 7. Ileus - Seen on CT - PEG tube already in place to suction - Abdominal distension improved - Hypoactive bowel sounds - Tolerating Tube feed - GI Consulted, appreciate rec's 8. Acute transaminitis - Elevated LFTs may be part of the sepsis syndrome - Trending down - Consider abdominal Ultrasound - Hepatitis panel pending 9. Seizure disorder - Continue Keppra 10. DVT ppx - Heparin 5000U TID SQ Dispo - ICU due to respiratory status Visit type - Emergency Visit Emergency Visit: Yes ED Registration Date: 03/09/18 Care time: The patient presented to the Emergency Department on the above date and was hospitalized for further evaluation of their emergent condition. - New Patient This patient is new to me today: No - Critical Care Critical Care patient: No
[2018-03-14] MEDS: MONTELUKAST NA 5 MG TAB.CHEW PO SCH (21:18)
[2018-03-15] MEDS: VANCOMYCIN 250 MG/5 ML ORAL SOLUTION GT SCH ×4 (00:19→17:32)
[2018-03-15] MEDS: CEFEPIME 2 GM in DEXTROSE 5%-WATER 100 ML IVPB SCH ×3 (02:00→17:31)
[2018-03-15 05:51] LABS: HEMATOCRIT 30.3 % (35.4-49); HEMOGLOBIN 10.4 GM/dL (11.7-16.9); MCH 32.4 pg (25.7-33.7); MCHC 34.4 g/dl (32.0-35.9); MEAN CELL VOLUME 94.4 fl (80-96); MEAN PLT VOLUME 9.6 fl (7.5-11.1); PLATELET COUNT 134 K/MM3 (134-434); RBC 3.21 M/mm3 (4.00-5.60); RDW 16.2 % (11.9-15.9); WHITE BLOOD COUNT 8.2 K/mm3 (4.0-10.0)
[2018-03-15] MEDS: diazePAM 2 MG TABLET PO SCH ×3 (06:06→21:18)
[2018-03-15] MEDS: HEPARIN NA (PORCINE) 5,000 UNITS/ML 1ML VIAL SQ SCH ×3 (06:06→21:19)
[2018-03-15 06:47] LABS: ANION GAP 8 (8-16); BLOOD UREA NITROGEN 9 mg/dL (7-18); CALCIUM 8.4 mg/dL (8.5-10.1); CHLORIDE 111 mmol/L (98-107); CO2 27 mmol/L (21-32); CREATININE 0.4 mg/dL (0.7-1.3); GLUCOSE,RANDOM 73 mg/dL (74-106); POTASSIUM 3.6 mmol/L (3.5-5.1); SODIUM 146 mmol/L (136-145)
--- NOTE | 2018-03-15 07:49 | PN ---
Progress Note, Physician Chief Complaint: ID Cefepime Azithromycin day 7 antibiotics - Current Medication List Current Medications: Active Medications Bacitracin/Polymyxin B Sulfate (Polysporin Ointment -) 1 applic TP BID [facility] Last Admin: 03/14/18 21:13 Dose: 1 applic Diazepam (Valium -) 2 mg PO TID [facility] Last Admin: 03/15/18 06:06 Dose: 2 mg Gabapentin (Neurontin -) 400 mg PO BID [facility] Last Admin: 03/14/18 21:12 Dose: 400 mg Heparin Sodium (Porcine) (Heparin -) 5,000 unit SQ TID [facility] Last Admin: 03/15/18 06:06 Dose: 5,000 unit Cefepime HCl 2 gm/ Dextrose 100 mls @ 200 mls/hr IVPB Q8H-IV [facility]; Protocol Last Admin: 03/15/18 02:00 Dose: 200 mls/hr Azithromycin 500 mg/ Dextrose 250 mls @ 250 mls/hr IVPB DAILY [facility] Last Admin: 03/14/18 09:04 Dose: 250 mls/hr Lacosamide (Vimpat -) 50 mg PO BID [facility] Last Admin: 03/14/18 21:12 Dose: 50 mg Levetiracetam (Keppra Oral Solution -) 1,500 mg PO DAILY [facility] Last Admin: 03/14/18 09:00 Dose: 1,500 mg Levetiracetam (Keppra Oral Solution -) 1,750 mg PO HS [facility] Last Admin: 03/14/18 21:18 Dose: 1,750 mg Loratadine (Claritin -) 10 mg PO DAILY [facility] Last Admin: 03/14/18 08:59 Dose: 10 mg Montelukast Sodium (Singulair -) 5 mg PO HS [facility] Last Admin: 03/14/18 21:18 Dose: 5 mg Multi-Ingredient Ointment (Zinc Oxide) 1 applic TP BID [facility] Last Admin: 03/14/18 21:13 Dose: 1 applic Phenobarbital (Phenobarbital Liquid -) 20 mg PEG DAILY [facility] Last Admin: 03/14/18 09:02 Dose: 20 mg Saliva Substitute (Mouthkote Solution -) 1 applic MM DAILY [facility] Last Admin: 03/14/18 09:01 Dose: 1 applic Scopolamine HBr (Transderm-Scop -) 1 patch TD Q48H [facility] Last Admin: 03/13/18 09:58 Dose: 1 patch Vancomycin HCl (Vancomycin Oral Solution) 125 mg GT Q6HPO [facility] Last Admin: 03/15/18 06:06 Dose: 125 mg - Objective Vital Signs: Vital Signs Temperature 97 F L 03/15/18 06:00 Pulse Rate 75 03/15/18 06:00 Respiratory Rate 22 03/15/18 06:00 Blood Pressure 156/96 03/15/18 06:00 O2 Sat by Pulse Oximetry (%) 95 03/14/18 21:00 Labs: CBC, BMP 03/15/18 05:05 03/15/18 05:05 INR, PTT INR 1.58 (0.82-1.09) H 03/10/18 05:30 Problem List - Problems (1) Pneumonia Code(s): J18.9 - PNEUMONIA, UNSPECIFIED ORGANISM (2) Sepsis Code(s): A41.9 - SEPSIS, UNSPECIFIED ORGANISM Qualifiers: Sepsis type: sepsis due to unspecified organism Qualified Code(s): A41.9 - Sepsis, unspecified organism (3) Elevated LFTs Code(s): R94.5 - ABNORMAL RESULTS OF LIVER FUNCTION STUDIES (4) S/P exploratory laparotomy Code(s): Z98.890 - OTHER SPECIFIED POSTPROCEDURAL STATES Assessment/Plan Microbiology 03/11/18 13:33 Nares - Left Nares MRSA Screen - Final NO MRSA ISOLATED 03/09/18 02:41 Stool Clostridium difficile Antigen (CHLOÉ) - Final 03/09/18 02:41 Stool Clostridium difficile Toxin Assay - Final 03/08/18 23:11 Urine - Urine - Catheterized Urine Culture - Final NO GROWTH OBTAINED 03/08/18 23:11 Blood - Peripheral Venous Blood Culture - Final NO GROWTH AFTER 5 DAYS INCUBATION Laboratory Tests 03/10/18 03/15/18 03/15/18 06:30 05:05 05:05 WBC 8.2 Hgb 10.4 L Hct 30.3 L Plt Count 134 ESR 58 H BUN 9 Creatinine 0.4 L Assessment Bilateral PNA unspecified C diff Ag pos Plan Continue current antibiotic through tomorrow Mary SHIRLEY
[2018-03-15] MEDS ORDERED: PT OWN MED DRAWER 7, Y5N ONE ×3 (09:15→21:10)
[2018-03-15] MEDS: PHENobarbital 20 MG/5 ML UNIT-DOSE CUP PEG SCH (09:28)
[2018-03-15] MEDS: AZITHROMYCIN IVPB 500 MG in DEXTROSE 5%-WATER - 250 ML IVPB SCH (09:28)
[2018-03-15] MEDS: LORATADINE 10 MG TABLET PO SCH (09:28)
[2018-03-15] MEDS: GABAPENTIN 400 MG CAPSULE (FP) PO SCH ×2 (09:28→21:18)
[2018-03-15] MEDS: SCOPOLAMINE HYDROBROMIDE 1 PATCH PATCH.TD72 TD SCH (09:29)
[2018-03-15] MEDS: levETIRAcetam 500 MG/5 ML ORAL SOLUTION (UNIT-DOSE CUPS) PO SCH (09:29)
[2018-03-15] MEDS: LACOSAMIDE 50 MG TABLET PO SCH ×2 (09:30→21:19)
[2018-03-15] MEDS: LYTES/YERBA SANTA 240 ML BOTTLE MM SCH (09:39)
[2018-03-15] MEDS: BACITRACIN/POLYMYXIN B SULFATE 15 GM TUBE TP SCH ×2 (11:00→21:22)
[2018-03-15] MEDS: ZINC OXIDE 20% TOPICAL OINTMENT 30 GM TUBE TP SCH ×2 (11:00→21:21)
--- NOTE | 2018-03-15 11:16 | PN ---
Teaching Attending Note Name of Resident: Eric Gonzalez ATTENDING PHYSICIAN STATEMENT I saw and evaluated the patient. I reviewed the resident's note and discussed the case with the resident. I agree with the resident's findings and plan as documented. SUBJECTIVE: Patient seen and examined in the ICU. Remains on VM O2. Mildly tachypneic at rest, but in NAD. CXR: none today OBJECTIVE: Intake & Output 03/12/18 03/13/18 03/14/18 03/15/18 23:59 23:59 23:59 23:59 Intake Total 1156 2270 2678 660 Output Total 1100 3700 600 Balance 1156 1170 -1022 60 Weight 85 lb 5.102 oz 85 lb 8.63 oz 87 lb 7 oz Last Vital Signs Temp Pulse Resp BP Pulse Ox 97 F L 75 22 102/55 93 L 03/15/18 06:00 03/15/18 09:00 03/15/18 09:00 03/15/18 09:00 03/15/18 07:50 Active Medications Bacitracin/Polymyxin B Sulfate (Polysporin Ointment -) 1 applic TP BID [facility] Last Admin: 03/14/18 21:13 Dose: 1 applic Diazepam (Valium -) 2 mg PO TID [facility] Last Admin: 03/15/18 06:06 Dose: 2 mg Gabapentin (Neurontin -) 400 mg PO BID [facility] Last Admin: 03/15/18 09:28 Dose: 400 mg Heparin Sodium (Porcine) (Heparin -) 5,000 unit SQ TID [facility] Last Admin: 03/15/18 06:06 Dose: 5,000 unit Cefepime HCl 2 gm/ Dextrose 100 mls @ 200 mls/hr IVPB Q8H-IV [facility]; Protocol Last Admin: 03/15/18 09:28 Dose: 200 mls/hr Azithromycin 500 mg/ Dextrose 250 mls @ 250 mls/hr IVPB DAILY [facility] Last Admin: 03/15/18 09:28 Dose: 250 mls/hr Lacosamide (Vimpat -) 50 mg PO BID [facility] Last Admin: 03/15/18 09:30 Dose: 50 mg Levetiracetam (Keppra Oral Solution -) 1,500 mg PO DAILY [facility] Last Admin: 03/15/18 09:29 Dose: 1,500 mg Levetiracetam (Keppra Oral Solution -) 1,750 mg PO HS [facility] Last Admin: 03/14/18 21:18 Dose: 1,750 mg Loratadine (Claritin -) 10 mg PO DAILY [facility] Last Admin: 03/15/18 09:28 Dose: 10 mg Montelukast Sodium (Singulair -) 5 mg PO HS [facility] Last Admin: 03/14/18 21:18 Dose: 5 mg Multi-Ingredient Ointment (Zinc Oxide) 1 applic TP BID [facility] Last Admin: 03/14/18 21:13 Dose: 1 applic Phenobarbital (Phenobarbital Liquid -) 20 mg PEG DAILY [facility] Last Admin: 03/15/18 09:28 Dose: 20 mg Saliva Substitute (Mouthkote Solution -) 1 applic MM DAILY [facility] Last Admin: 03/15/18 09:39 Dose: 1 applic Scopolamine HBr (Transderm-Scop -) 1 patch TD Q48H [facility] Last Admin: 03/15/18 09:29 Dose: 1 patch Vancomycin HCl (Vancomycin Oral Solution) 125 mg GT Q6HPO [facility] Last Admin: 03/15/18 06:06 Dose: 125 mg Gen: Mildly tachypneic on VM O2 Heart: RRR Lung: bilateral rhonchi Abd: soft, nontender Ext: contracted, no edema Laboratory Results - last 24 hr 03/15/18 03/15/18 05:05 05:05 WBC 8.2 RBC 3.21 L Hgb 10.4 L Hct 30.3 L MCV 94.4 MCH 32.4 MCHC 34.4 RDW 16.2 H Plt Count 134 MPV 9.6 Sodium 146 H Potassium 3.6 Chloride 111 H Carbon Dioxide 27 Anion Gap 8 BUN 9 Creatinine 0.4 L Creat Clearance w eGFR > 60 Random Glucose 73 L Calcium 8.4 L ASSESSMENT AND PLAN: Acute Hypoxic Respiratory Failure Pneumonia likely Aspiration Severe Sepsis Elevated LFTs likely ischemic injury Abdominal Distention/Constipation Seizure Disorder Mental Retardation - VM O2 and wean as tolerated - ABX - Aspiration precautions - AEDs - DVT prophylaxis - BD TX - Floor Dr Young Critical care time spent in reviewing chart, evaluating patient and formulating plan 36 min
--- NOTE | 2018-03-15 13:20 | EKG ---
Test Reason : Blood Pressure : / mmHG Vent. Rate : 061 BPM Atrial Rate : 061 BPM P-R Int : 174 ms QRS Dur : 106 ms QT Int : 390 ms P-R-T Axes : 015 035 013 degrees QTc Int : 392 ms SINUS RHYTHM WITH MARKED SINUS ARRHYTHMIA POSSIBLE INFERIOR INFARCT (CITED ON OR BEFORE 03-DEC-2016) ABNORMAL ECG WHEN COMPARED WITH ECG OF 09-MAR-2018 00:07, IN INTERVAL HAS DECREASED QT HAS SHORTENED Confirmed by CHARLES IGNACIO MD ([id number]) on 03/15/2018 1:19:53 PM Referred By: KATHERINE BAIRD DREGH Confirmed By:CHARLES IGNACIO MD
--- NOTE | 2018-03-15 15:34 | PN ---
Physical Exam: SUBJECTIVE: Patient seen and examined today in icu. Curently on Venti mask at 50 %. Not using accessory muscles of inspiration, resting comfortably. Pt being transferred to med-surg. OBJECTIVE: Vital Signs Period Temp Pulse Resp BP Sys/Jay Pulse Ox Last 24 Hr 97 F-98.8 F 58-82 17-29 92-156/55-96 93-96 GENERAL: Overall less distress. HEAD: Normal with no signs of trauma. ENT: Tongue protrusion. Erythema of tongue. NECK: Not using accessory muscles LUNGS: Coarse rhonchi throughout HEART: -m/r/g, RRR ABDOMEN: Abdomen less distended. EXTREMITIES: Extremities contracted. SKIN: moist. Laboratory Results - last 24 hr 03/15/18 03/15/18 05:05 05:05 WBC 8.2 RBC 3.21 L Hgb 10.4 L Hct 30.3 L MCV 94.4 MCH 32.4 MCHC 34.4 RDW 16.2 H Plt Count 134 MPV 9.6 Sodium 146 H Potassium 3.6 Chloride 111 H Carbon Dioxide 27 Anion Gap 8 BUN 9 Creatinine 0.4 L Creat Clearance w eGFR > 60 Random Glucose 73 L Calcium 8.4 L Active Medications Generic Name Dose Route Start Last Admin Trade Name Freq PRN Reason Stop Dose Admin Bacitracin/Polymyxin B Sulfate 1 applic 03/09/18 19:00 03/15/18 11:00 Polysporin Ointment - TP 1 applic BID AUNG Administration Diazepam 1 mg 03/15/18 22:00 Valium - PO TID AUNG Gabapentin 400 mg 03/09/18 10:00 03/15/18 09:28 Neurontin - PO 400 mg BID AUNG Administration Heparin Sodium (Porcine) 5,000 unit 03/09/18 06:15 03/15/18 13:12 Heparin - SQ 5,000 unit TID AUNG Administration Cefepime HCl 2 gm/ Dextrose 100 mls @ 200 mls/hr 03/09/18 18:00 03/15/18 09: 28 IVPB 200 mls/hr Q8H-IV AUNG Administration Protocol Azithromycin 500 mg/ Dextrose 250 mls @ 250 mls/hr 03/12/18 10:00 03/15/18 09 :28 IVPB 250 mls/hr DAILY AUNG Administration Lacosamide 50 mg 03/09/18 10:00 03/15/18 09:30 Vimpat - PO 50 mg BID AUNG Administration Levetiracetam 1,500 mg 03/09/18 10:00 03/15/18 09:29 Keppra Oral Solution - PO 1,500 mg DAILY AUNG Administration Levetiracetam 1,750 mg 03/09/18 22:00 03/14/18 21:18 Keppra Oral Solution - PO 1,750 mg HS AUNG Administration Loratadine 10 mg 03/11/18 15:30 03/15/18 09:28 Claritin - PO 10 mg DAILY AUNG Administration Montelukast Sodium 5 mg 03/09/18 22:00 03/14/18 21:18 Singulair - PO 5 mg HS AUNG Administration Multi-Ingredient Ointment 1 applic 03/09/18 10:00 03/15/18 11:00 Zinc Oxide TP 1 applic BID AUNG Administration Phenobarbital 20 mg 03/09/18 12:00 03/15/18 09:28 Phenobarbital Liquid - PEG 20 mg DAILY AUNG Administration Saliva Substitute 1 applic 03/09/18 17:15 03/15/18 09:39 Mouthkote Solution - MM 1 applic DAILY AUNG Administration Scopolamine HBr 1 patch 03/09/18 10:00 03/15/18 09:29 Transderm-Scop - TD 1 patch Q48H AUNG Administration Vancomycin HCl 125 mg 03/11/18 00:00 03/15/18 13:00 Vancomycin Oral Solution GT 125 mg Q6HPO AUNG Administration ASSESSMENT/PLAN: Pt is a 23 y/o M with pmh mr, cerebral palsy, quadriplegia, seizure disorder, constipation, as well as a perforated viscous s/p laparotomy. Acute Respiratory Failure 2/2 aspiration pneumonia - Chest CT 03/09- extensive b/l pulmonary consolidation with poor aeration of lung ortiz, marked air and distension of large colon, no evidence of obstruction. No Chest Xray since 03/13. High Flow 02 D/C'ed. Now on Venti mask 50%. BIPAP not best for this patient considering functional status - Albuterol 1 amp neb, montelukast 5 mg po -Vanco Cefepime Azithrmycin. ID + for C Diff antigen. Currently on Vanco, Cefepime, and Azithro. Per ID, will D /C Azithro and Cefepime tomorrow. Neuro Seizure d/o Keppra Phenobarbital Valium Valium 2 mg TID changed to 1 mg TID due to bradycardia G.I Prior Xrays revealed dilation of colon, air distension. Pt less distended s/p rectal tube insertion (03/09) FEN No Fluids Monitor Electrolytes Enteral feeds DVT ppx: Heparin 5,000 U SQ Dispo Pt being transferred to floors today. Visit type - Emergency Visit Emergency Visit: Yes ED Registration Date: 03/09/18 Care time: The patient presented to the Emergency Department on the above date and was hospitalized for further evaluation of their emergent condition. - New Patient This patient is new to me today: No - Critical Care Critical Care patient: Yes Total Critical Care Time (in minutes): 35 Critical Care Statement: The care of this patient involved high complexity decision making to prevent further life threatening deterioration of the patient 's condition and/or to evaluate & treat vital organ system(s) failure or risk of failure.
--- NOTE | 2018-03-15 16:56 | PN ---
Teaching Attending Note Name of Resident: Maddie Clark ATTENDING PHYSICIAN STATEMENT I saw and evaluated the patient. I reviewed the resident's note and discussed the case with the resident. I agree with the resident's findings and plan as documented. SUBJECTIVE:resting comfortable large loose BM today OBJECTIVE: Last Vital Signs Temp Pulse Resp BP Pulse Ox 98 F 70 19 102/60 96 03/15/18 16:00 03/15/18 16:00 03/15/18 16:00 03/15/18 16:00 03/15/18 15:56 General NAD CV S1 S2 RRR no murmur/rub/gallop lungs decreased breath sounds anteriorly Abdomen soft. +dull to percussion, hypoactive BS +PEG LUQ in place. no drainage of bleeding noted Extremities contracted extremities ASSESSMENT AND PLAN: 23yo M from [place] with H cerebral palsy, mental retardation, functional quadriplegia was sent to the ER with acute hypoxic respiratory failure. was found to be 88% on RA which did not improve with nasal cannula and sent to the hospital. 1. Acute hypoxic respiratory failure- likely due to B/L PNA. currently saturating 99% on 50% face mask. will cont to titrate down as tolerated. cont with frequent deep suctioning and chest PT. pulmonary on board 2. Severe sepsis due to B/L PNA and suspected cdiff- cdiff ag +. currently on azithro/cefepime/vanco po. cdiff PCR sent out. will await for results prior to stopping vanco po. ID on board. contact precautions. f/u cx. d/c shane 3. Elevated LFT- likely due to severe sepsis. u/s showing fatty infilration of liver. trending down 4. hyperkalemia- was on standing doses of potassium supplementation. resolved 5. hypernatremia- slowly improving. cont free water flushes to 40cc/H 6. hypoglycemia- improved. 7. ileus- seen on CT. appear may be more chronic. tolerating TF. GI on board 8. MR 9. CP 10. epilepsy- no seizure like activity. on vimpat/keppra 11. DVT ppx- hep sq 12. stable for transfer to floors The care of this patient involved high complexity decision making to prevent further life threatening deterioration of the patient's condition and/or to evaluate & treat vital organ system(s) failure or risk of . 34 minutes
[2018-03-15] MEDS ORDERED: AMINO ACIDS/PROTEIN HYDROLYS 30 ML LIQUID.PKT PO SCH (17:30)
--- NOTE | 2018-03-15 18:28 | PN ---
Physical Exam: SUBJECTIVE: Patient seen and examined resting comfortably in ICU. He had one large loose BM as per nursing. No other acute events over night. OBJECTIVE: Vital Signs Period Temp Pulse Resp BP Sys/Jay Pulse Ox Last 24 Hr 97 F-98.7 F 58-82 17-29 92-156/55-96 93-96 GENERAL: Sitting upright at a 40 degree angle, nonverbal, No acute distress LUNGS: Rhonchi much improved, On Ventimask HEART: Regular rate and rhythm, S1, S2 without murmur, rub or gallop. ABDOMEN: Soft, Distended, Hypoactive bowel sounds, PEG tube present in LUQ without bleeding, drainage or surrounding erythema : Shane catheter present draining clear yellow urine EXTREMITIES: Upper extremities Contracted B/L Laboratory Results - last 24 hr 03/15/18 03/15/18 05:05 05:05 WBC 8.2 RBC 3.21 L Hgb 10.4 L Hct 30.3 L MCV 94.4 MCH 32.4 MCHC 34.4 RDW 16.2 H Plt Count 134 MPV 9.6 Sodium 146 H Potassium 3.6 Chloride 111 H Carbon Dioxide 27 Anion Gap 8 BUN 9 Creatinine 0.4 L Creat Clearance w eGFR > 60 Random Glucose 73 L Calcium 8.4 L Microbiology 03/08/18 23:11 Blood - Peripheral Venous Blood Culture - Final NO GROWTH AFTER 5 DAYS INCUBATION 03/08/18 23:11 Blood - Peripheral Venous Blood Culture - Final NO GROWTH AFTER 5 DAYS INCUBATION 03/11/18 13:33 Nares - Left Nares MRSA Screen - Final NO MRSA ISOLATED 03/08/18 23:11 Urine - Urine - Catheterized Urine Culture - Final NO GROWTH OBTAINED 03/09/18 02:41 Stool Clostridium difficile Antigen (CHLOÉ) - Final 03/09/18 02:41 Stool Clostridium difficile Toxin Assay - Final Active Medications Amino Acids (Prosource No Carb Liquid Pkt) 30 ml PO DAILY@0800 [facility] Bacitracin/Polymyxin B Sulfate (Polysporin Ointment -) 1 applic TP BID [facility] Diazepam (Valium -) 1 mg PO TID AUNG Gabapentin (Neurontin -) 400 mg PO BID [facility] Heparin Sodium (Porcine) (Heparin -) 5,000 unit SQ TID [facility] Azithromycin 500 mg/ Dextrose 250 mls @ 250 mls/hr IVPB DAILY [facility] Cefepime HCl 2 gm/ Dextrose 100 mls @ 200 mls/hr IVPB Q8H-IV AUNG; Protocol Lacosamide (Vimpat -) 50 mg PO BID AUNG Levetiracetam (Keppra Oral Solution -) 1,500 mg PO DAILY AUNG Levetiracetam (Keppra Oral Solution -) 1,750 mg PO HS AUNG Loratadine (Claritin -) 10 mg PO DAILY AUNG Montelukast Sodium (Singulair -) 5 mg PO HS AUNG Multi-Ingredient Ointment (Zinc Oxide) 1 applic TP BID AUNG Phenobarbital (Phenobarbital Liquid -) 20 mg PEG DAILY AUNG Saliva Substitute (Mouthkote Solution -) 1 applic MM DAILY AUNG Scopolamine HBr (Transderm-Scop -) 1 patch TD Q48H AUNG Vancomycin HCl (Vancomycin Oral Solution) 125 mg GT Q6HPO AUNG IMAGING - CXR: Imaging reveals scoliosis with extensive spinal support rods, weak inspiration with bilateral effusions, infiltrates and large heart. There is abdominal distention which is quite diffuse. The bones and soft tissues are intact. - CT Abdomen Pelvis: Extensive bilateral pulmonary consolidation with poor aeration of the lung ortiz. Marked air and fluid distention of the entire colon with no gross evidence of obstruction. Markedly limited study as described above. ASSESSMENT/PLAN: 23 y/o M resident of [place] with PMHx of profound developmental delay, cerebral palsy, functional quadriplegia, non-interactive at baseline, reactive airway disease, seizure disorder was admitted for Acute hypoxic respiratory failure. 1. Acute hypoxic respiratory failure - Tachypnic, Rhonchi improved however - 88% Saturation did not improve on 5L via NC at [place] as per chart - Currently on Ventimask, Sats at 99% - Continue Deep suctioning - Consider Aspiration pneumonia - Chest physio therapy - Frequent deep suctioning - Pulmonology consulted, appreciate rec's 2. Severe Sepsis - Likely due to HCAP - Previous Lactic Acid: 1.3 - Continue tx with Azithromycin, Cefepime, Vancomycin - ID Consulted, appreciate rec's - GI Consulted, appreciate rec's - Cultures pending - Will discontinue shane today 3. Diarrhea - Suspected C. Diff, Stool was positive for C. Diff antigen on this visit - Pending C. Diff PCR - Lactulose on home medication list; clarify from NH whether he is still getting it - Hx of stool C.Diff antigen positive but toxin negative--given oral vancomycin in 08/2017 - No loose stools since ICU Admission - Continue with Oral Vancomycin 4. Hypokalemia - Resolved. Was Hyperkalemic (5.5) - Discontinue KCL 40meq PO TID 5. HyperNatremia - Increased Free water added to tube feed 6. Hypoglycemia - Improving on tube feeds - Continue BGM 7. Ileus - Seen on CT - PEG tube already in place to suction - Abdominal distension improved - Hypoactive bowel sounds - Tolerating Tube feed - GI Consulted, appreciate rec's 8. Acute transaminitis - Elevated LFTs may be part of the sepsis syndrome - Trending down - Consider abdominal Ultrasound - Hepatitis panel pending 9. Seizure disorder - Continue Keppra 10. DVT ppx - Heparin 5000U TID SQ Dispo - Transfer to floors Visit type - Emergency Visit Emergency Visit: Yes ED Registration Date: 03/09/18 Care time: The patient presented to the Emergency Department on the above date and was hospitalized for further evaluation of their emergent condition. - New Patient This patient is new to me today: No - Critical Care Critical Care patient: Yes Total Critical Care Time (in minutes): 38 Critical Care Statement: The care of this patient involved high complexity decision making to prevent further life threatening deterioration of the patient 's condition and/or to evaluate & treat vital organ system(s) failure or risk of failure.
[2018-03-15] MEDS ORDERED: levETIRAcetam 500 MG/5 ML ORAL SOLUTION (UNIT-DOSE CUPS) PO SCH (22:00)
[2018-03-15] MEDS ORDERED: MONTELUKAST NA 5 MG TAB.CHEW PO SCH (22:00)
[2018-03-16] MEDS: CEFEPIME 2 GM in DEXTROSE 5%-WATER 100 ML IVPB SCH ×2 (01:34→09:18)
[2018-03-16] MEDS: HEPARIN NA (PORCINE) 5,000 UNITS/ML 1ML VIAL SQ SCH ×3 (05:45→21:06)
[2018-03-16] MEDS: diazePAM 2 MG TABLET PO SCH ×3 (05:45→21:08)
[2018-03-16] MEDS: VANCOMYCIN 250 MG/5 ML ORAL SOLUTION GT SCH ×4 (05:47→18:27)
[2018-03-16 06:26] LABS: BASO % 0.7 % (0-2.0); EOS % 3.6 % (0-4.5); HEMATOCRIT 28.2 % (35.4-49); HEMOGLOBIN 9.5 GM/dL (11.7-16.9); LYMPH % 33.4 % (8-40); MCHC 33.8 g/dl (32.0-35.9); MEAN CELL VOLUME 94.6 fl (80-96); MEAN PLT VOLUME 9.1 fl (7.5-11.1); NEUT % 55.3 % (42.8-82.8); PLATELET COUNT 146 K/MM3 (134-434); RBC 2.98 M/mm3 (4.00-5.60); RDW 16.1 % (11.9-15.9)
[2018-03-16 06:48] LABS: ALBUMIN 2.7 g/dl (3.4-5.0); ANION GAP 7 (8-16); BILIRUBIN,TOTAL 0.4 mg/dL (0.2-1.0); BLOOD UREA NITROGEN 10 mg/dL (7-18); CALCIUM 8.3 mg/dL (8.5-10.1); CHLORIDE 111 mmol/L (98-107); CO2 27 mmol/L (21-32); CREATININE 0.3 mg/dL (0.7-1.3); GLUCOSE,RANDOM 73 mg/dL (74-106); MAGNESIUM 1.7 mg/dL (1.8-2.4); POTASSIUM 3.7 mmol/L (3.5-5.1); SGOT/AST 51 U/L (15-37); SGPT/ALT 82 U/L (12-78); SODIUM 145 mmol/L (136-145); TOT PROT 6.5 g/dl (6.4-8.2)
[2018-03-16 06:49] LABS: ALK PHOS 255 U/L (45-117)
[2018-03-16] MEDS ORDERED: AMINO ACIDS/PROTEIN HYDROLYS 30 ML LIQUID.PKT PO SCH (08:00)
[2018-03-16] MEDS ORDERED: PT OWN MED DRAWER 7, Y5N ONE ×6 (08:46→23:17)
[2018-03-16] MEDS: GABAPENTIN 400 MG CAPSULE (FP) PO SCH ×2 (09:39→21:08)
[2018-03-16] MEDS: LACOSAMIDE 50 MG TABLET PO SCH ×2 (09:39→21:08)
[2018-03-16] MEDS: BACITRACIN/POLYMYXIN B SULFATE 15 GM TUBE TP SCH ×2 (09:40→21:10)
[2018-03-16] MEDS: ZINC OXIDE 20% TOPICAL OINTMENT 30 GM TUBE TP SCH ×2 (09:40→21:10)
[2018-03-16] MEDS ORDERED: LYTES/YERBA SANTA 240 ML BOTTLE MM SCH (10:00)
[2018-03-16] MEDS ORDERED: AZITHROMYCIN IVPB 500 MG in DEXTROSE 5%-WATER - 250 ML IVPB SCH (10:00)
[2018-03-16] MEDS ORDERED: PHENobarbital 20 MG/5 ML UNIT-DOSE CUP PEG SCH (10:00)
[2018-03-16] MEDS ORDERED: levETIRAcetam 500 MG/5 ML ORAL SOLUTION (UNIT-DOSE CUPS) PO SCH (10:00)
[2018-03-16] MEDS ORDERED: LORATADINE 10 MG TABLET PO SCH (10:00)
--- NOTE | 2018-03-16 11:20 | EKG ---
Test Reason : Blood Pressure : / mmHG Vent. Rate : 064 BPM Atrial Rate : 064 BPM P-R Int : 152 ms QRS Dur : 100 ms QT Int : 372 ms P-R-T Axes : 018 051 022 degrees QTc Int : 383 ms NORMAL SINUS RHYTHM WITH SINUS ARRHYTHMIA T WAVE ABNORMALITY, CONSIDER ANTERIOR ISCHEMIA ABNORMAL ECG Confirmed by MD MARU, MARGRET ([id number]) on 03/16/2018 11:19:50 AM Referred By: Kedar LEONG Confirmed By:MARGRET MAHONEY MD
--- NOTE | 2018-03-16 11:54 | PN ---
Teaching Attending Note Name of Resident: Eric Gonzalez ATTENDING PHYSICIAN STATEMENT I saw and evaluated the patient. I reviewed the resident's note and discussed the case with the resident. I agree with the resident's findings and plan as documented. SUBJECTIVE: Patient seen and examined in the ICU. Remains on VM O2. Mildly tachypneic at rest, but in NAD. Episodes of bradycardia noted. CXR: poor film quality / no gross change OBJECTIVE: Intake & Output 03/13/18 03/14/18 03/15/18 03/16/18 23:59 23:59 23:59 23:59 Intake Total 2270 2678 2210 900 Output Total 1100 3700 1110 600 Balance 1170 -1022 1100 300 Weight 85 lb 5.102 oz 85 lb 8.63 oz 87 lb 7 oz 87 lb 6 oz Last Vital Signs Temp Pulse Resp BP Pulse Ox 97.8 F 77 15 116/83 96 03/16/18 11:00 03/16/18 11:00 03/16/18 11:00 03/16/18 11:00 03/16/18 09:31 Active Medications Amino Acids (Prosource No Carb Liquid Pkt) 30 ml PO DAILY@0800 [facility] Last Admin: 03/16/18 08:00 Dose: 30 ml Bacitracin/Polymyxin B Sulfate (Polysporin Ointment -) 1 applic TP BID [facility] Last Admin: 03/16/18 09:40 Dose: 1 applic Diazepam (Valium -) 1 mg PO TID [facility] Last Admin: 03/16/18 05:45 Dose: 1 mg Gabapentin (Neurontin -) 400 mg PO BID [facility] Last Admin: 03/16/18 09:39 Dose: 400 mg Heparin Sodium (Porcine) (Heparin -) 5,000 unit SQ TID [facility] Last Admin: 03/16/18 05:45 Dose: 5,000 unit Azithromycin 500 mg/ Dextrose 250 mls @ 250 mls/hr IVPB DAILY [facility] Last Admin: 03/16/18 09:30 Dose: 250 mls/hr Cefepime HCl 2 gm/ Dextrose 100 mls @ 200 mls/hr IVPB Q8H-IV [facility]; Protocol Last Admin: 03/16/18 09:18 Dose: 200 mls/hr Lacosamide (Vimpat -) 50 mg PO BID [facility] Last Admin: 03/16/18 09:39 Dose: 50 mg Levetiracetam (Keppra Oral Solution -) 1,500 mg PO DAILY [facility] Last Admin: 03/16/18 09:37 Dose: 1,500 mg Levetiracetam (Keppra Oral Solution -) 1,750 mg PO HS [facility] Last Admin: 03/15/18 21:20 Dose: 1,750 mg Loratadine (Claritin -) 10 mg PO DAILY [facility] Last Admin: 03/16/18 09:37 Dose: 10 mg Montelukast Sodium (Singulair -) 5 mg PO HS [facility] Last Admin: 03/15/18 21:20 Dose: 5 mg Multi-Ingredient Ointment (Zinc Oxide) 1 applic TP BID [facility] Last Admin: 03/16/18 09:40 Dose: 1 applic Phenobarbital (Phenobarbital Liquid -) 20 mg PEG DAILY [facility] Last Admin: 03/16/18 09:39 Dose: 20 mg Saliva Substitute (Mouthkote Solution -) 1 applic MM DAILY [facility] Last Admin: 03/16/18 09:38 Dose: 1 applic Vancomycin HCl (Vancomycin Oral Solution) 125 mg GT Q6HPO [facility] Last Admin: 03/16/18 05:47 Dose: 125 mg Gen: Mildly tachypneic on VM O2 Heart: RRR Lung: bilateral rhonchi Abd: soft, nontender Ext: contracted, no edema Laboratory Results - last 24 hr 03/16/18 03/16/18 05:30 05:30 WBC 7.0 RBC 2.98 L Hgb 9.5 L Hct 28.2 L MCV 94.6 MCH 32.0 MCHC 33.8 RDW 16.1 H Plt Count 146 MPV 9.1 Absolute Neuts (auto) 3.9 Neutrophils % 55.3 Lymphocytes % 33.4 D Monocytes % 7.0 Eosinophils % 3.6 Basophils % 0.7 Nucleated RBC % 0 Sodium 145 Potassium 3.7 Chloride 111 H Carbon Dioxide 27 Anion Gap 7 L BUN 10 Creatinine 0.3 L Creat Clearance w eGFR > 60 Random Glucose 73 L Calcium 8.3 L Phosphorus 4.0 Magnesium 1.7 L Total Bilirubin 0.4 AST 51 H D ALT 82 H Alkaline Phosphatase 255 H D Total Protein 6.5 Albumin 2.7 L ASSESSMENT AND PLAN: Acute Hypoxic Respiratory Failure Pneumonia likely Aspiration Severe Sepsis Elevated LFTs likely ischemic injury Abdominal Distention/Constipation Seizure Disorder Mental Retardation Episode bradycardia: likely multifactorial: (?) Medication (?) Autonomic dysfunction (?) Sleep apnea - D/C scopolamine patch - VM O2 and wean as tolerated - ABX - Aspiration precautions - AEDs - DVT prophylaxis - BD TX - Cardiac telemetry monitoring Dr Young Critical care time spent in reviewing chart, evaluating patient and formulating plan 36 min
--- NOTE | 2018-03-16 14:29 | PN ---
Physical Exam: SUBJECTIVE: Patient seen and examined today in ICU. Pt resting comfortably on VM 50%. No using accessory muscles to breath. Cefepime and Azithromycin d/c'ed today. OBJECTIVE: Vital Signs Period Temp Pulse Resp BP Sys/Jay Pulse Ox Last 24 Hr 97.8 F-98.0 F 48-77 15-27 81-135/41-94 95-100 GENERAL: Resting in bed. NAD. HEAD: Normal with no signs of trauma. ENT: Tongue protrusion. Possibly david on tongue. NECK: Not using accessory muscles LUNGS: Coarse rhonchi throughout HEART: -m/r/g, RRR ABDOMEN: Abdomen not distended. EXTREMITIES: Extremities contracted. SKIN: moist. Laboratory Results - last 24 hr 03/16/18 03/16/18 05:30 05:30 WBC 7.0 RBC 2.98 L Hgb 9.5 L Hct 28.2 L MCV 94.6 MCH 32.0 MCHC 33.8 RDW 16.1 H Plt Count 146 MPV 9.1 Absolute Neuts (auto) 3.9 Neutrophils % 55.3 Lymphocytes % 33.4 D Monocytes % 7.0 Eosinophils % 3.6 Basophils % 0.7 Nucleated RBC % 0 Sodium 145 Potassium 3.7 Chloride 111 H Carbon Dioxide 27 Anion Gap 7 L BUN 10 Creatinine 0.3 L Creat Clearance w eGFR > 60 Random Glucose 73 L Calcium 8.3 L Phosphorus 4.0 Magnesium 1.7 L Total Bilirubin 0.4 AST 51 H D ALT 82 H Alkaline Phosphatase 255 H D Total Protein 6.5 Albumin 2.7 L TSH 10.50 H Free T4 1.24 H Active Medications Generic Name Dose Route Start Last Admin Trade Name Lazaro PRN Reason Stop Dose Admin Amino Acids 30 ml 03/16/18 08:00 03/16/18 08:00 Prosource No Carb Liquid Pkt PO 30 ml DAILY@0800 AUNG Administration Bacitracin/Polymyxin B Sulfate 1 applic 03/15/18 22:00 03/16/18 09:40 Polysporin Ointment - TP 1 applic BID AUNG Administration Diazepam 1 mg 03/15/18 22:00 03/16/18 05:45 Valium - PO 1 mg TID AUNG Administration Gabapentin 400 mg 03/15/18 22:00 03/16/18 09:39 Neurontin - PO 400 mg BID AUNG Administration Heparin Sodium (Porcine) 5,000 unit 03/15/18 22:00 03/16/18 05:45 Heparin - SQ 5,000 unit TID AUNG Administration Lacosamide 50 mg 03/15/18 22:00 03/16/18 09:39 Vimpat - PO 50 mg BID AUNG Administration Levetiracetam 1,500 mg 03/16/18 10:00 03/16/18 09:37 Keppra Oral Solution - PO 1,500 mg DAILY AUNG Administration Levetiracetam 1,750 mg 03/15/18 22:00 03/15/18 21:20 Keppra Oral Solution - PO 1,750 mg HS AUNG Administration Loratadine 10 mg 03/16/18 10:00 03/16/18 09:37 Claritin - PO 10 mg DAILY AUNG Administration Montelukast Sodium 5 mg 03/15/18 22:00 03/15/18 21:20 Singulair - PO 5 mg HS AUNG Administration Multi-Ingredient Ointment 1 applic 03/15/18 22:00 03/16/18 09:40 Zinc Oxide TP 1 applic BID AUNG Administration Phenobarbital 20 mg 03/16/18 10:00 03/16/18 09:39 Phenobarbital Liquid - PEG 20 mg DAILY AUNG Administration Saliva Substitute 1 applic 03/16/18 10:00 03/16/18 09:38 Mouthkote Solution - MM 1 applic DAILY AUNG Administration Vancomycin HCl 125 mg 03/15/18 18:00 03/16/18 12:20 Vancomycin Oral Solution GT 125 mg Q6HPO AUNG Administration ASSESSMENT/PLAN: Pt is a 23 y/o M with pmh mr, cerebral palsy, quadriplegia, seizure disorder, constipation, as well as a perforated viscous s/p laparotomy. Acute Respiratory Failure 2/2 aspiration pneumonia - Chest CT 03/09- extensive b/l pulmonary consolidation with poor aeration of lung ortiz, marked air and distension of large colon, no evidence of obstruction. Chest Xray since 03/16- No significant change since prior chest Xray on . Poor aeration of lung ortiz with consolidative changes bilaterally. Venti mask 50%. BIPAP not best for this patient considering functional status - Albuterol 1 amp neb, montelukast 5 mg po -Vanco -Scopolamine D/C/ed today. ID + for C Diff antigen. Currently on Vanco. Cefepime and Azithromycin d/c/ed today per ID. Neuro Seizure d/o Keppra 1500 mg po Phenobarbital 20 mg peg Valium 1 mg po tid. Valium 2 mg TID changed to 1 mg TID due to bradycardia G.I Prior Xrays revealed dilation of colon, air distension. Pt less distended s/p rectal tube insertion (03/09) FEN No Fluids Monitor Electrolytes Enteral feeds DVT ppx: Heparin 5,000 U SQ Dispo Pt being transferred to TELEMETRY. Visit type - Emergency Visit Emergency Visit: Yes ED Registration Date: 03/09/18 Care time: The patient presented to the Emergency Department on the above date and was hospitalized for further evaluation of their emergent condition. - New Patient This patient is new to me today: No - Critical Care Critical Care patient: Yes Total Critical Care Time (in minutes): 35 Critical Care Statement: The care of this patient involved high complexity decision making to prevent further life threatening deterioration of the patient 's condition and/or to evaluate & treat vital organ system(s) failure or risk of failure.
[2018-03-16] MEDS ORDERED: MAGNESIUM 1GM/D5W 100ML - 100 ML IVPB IVPB ONE (15:18)
--- NOTE | 2018-03-16 16:13 | PN ---
Teaching Attending Note Name of Resident: Maddie Clark ATTENDING PHYSICIAN STATEMENT I saw and evaluated the patient. I reviewed the resident's note and discussed the case with the resident. I agree with the resident's findings and plan as documented with exceptions below. SUBJECTIVE: patient seen and examined. non verbal, unable to assess for ROS. OBJECTIVE: Vital Signs Period Temp Pulse Resp BP Sys/Jay Pulse Ox Last 24 Hr 97.8 F-98.0 F 48-77 15-27 81-135/41-94 95-100 Intake & Output 03/13/18 03/14/18 03/15/18 03/16/18 23:59 23:59 23:59 23:59 Intake Total 2270 2678 2210 1000 Output Total 1100 3700 1110 600 Balance 1170 -1022 1100 400 Weight 85 lb 5.102 oz 85 lb 8.63 oz 87 lb 7 oz 87 lb 6 oz General: lying in bed, no acute distress, sleeping,minimally arousable to sternal rub Chest; decreased effort, unable to appreciate rales or wheezing Abdomen:Soft, PEG in place, positive bowel sounds Extremities: extremities contractures Home Medications Medication Instructions Recorded Albuterol 0.083% Nebulizer Martha 1 neb NEB QID PRN 12/03/16 [Ventolin 0.083% Nebulizer Soln -] Clobetasol Propionate/Emoll 15 gm TP DAILY 12/03/16 [Clobetasol Emollient 0.05% Crm] Diazepam 2 mg PO TID 12/03/16 Gabapentin 400 mg PO BID 12/03/16 Glycopyrrolate in Water/Pf 1 mg IV BID 12/03/16 [Glycopyrrolate 1 mg/5 ml-Water] Lacosamide [Vimpat -] 50 mg PO BID 12/03/16 Montelukast Na [Singulair -] 5 mg PO HS 12/03/16 Phenobarbital 20 mg GT DAILY 12/03/16 Scopolamine [Transderm-Scop] 1 each TD Q2D 12/03/16 Albuterol 2.5/Ipratropium 0.5 1 neb IH QID 09/04/17 [Duoneb -] Lactulose [Cephulac -] 30 ml GT DAILY 09/04/17 levETIRAcetam [Keppra Oral 1,500 mg GT DAILY 09/04/17 Solution -] levETIRAcetam [Keppra Oral 1,700 mg GT HS 09/04/17 Solution -] Lacosamide Liquid [Vimpat Liquid -] 50 mg GT BID cup MDD 100 mg 09/18/17 Vancomycin Oral Solution 125 mg PEG Q6HPO ml 09/18/17 Zinc Oxide 1 applic TP BID tube 09/18/17 Electrolyte,Oral [Pedialyte -] 45 ml PO WEEKLY 03/09/18 Fluticasone Propionate [Flovent 220 mcg IH BID 03/09/18 Diskus] Magnesium Citrate 120 ml PO WEEKLY 03/09/18 Magnesium Hydrox 2400MG/30Ml [Milk 30 ml GT BID 03/09/18 of Magnesia -] Protein Supplement [Promod] 30 ml GT DAILY 03/09/18 Sennosides [Senna] 17.2 mg PO DAILY 03/09/18 Active Medications Amino Acids (Prosource No Carb Liquid Pkt) 30 ml PO DAILY@0800 [facility] Last Admin: 03/16/18 08:00 Dose: 30 ml Bacitracin/Polymyxin B Sulfate (Polysporin Ointment -) 1 applic TP BID [facility] Last Admin: 03/16/18 09:40 Dose: 1 applic Diazepam (Valium -) 1 mg PO TID [facility] Last Admin: 03/16/18 14:34 Dose: Not Given Gabapentin (Neurontin -) 400 mg PO BID [facility] Last Admin: 03/16/18 09:39 Dose: 400 mg Heparin Sodium (Porcine) (Heparin -) 5,000 unit SQ TID [facility] Last Admin: 03/16/18 14:34 Dose: 5,000 unit Lacosamide (Vimpat -) 50 mg PO BID [facility] Last Admin: 03/16/18 09:39 Dose: 50 mg Levetiracetam (Keppra Oral Solution -) 1,500 mg PO DAILY [facility] Last Admin: 03/16/18 09:37 Dose: 1,500 mg Levetiracetam (Keppra Oral Solution -) 1,750 mg PO [facility] Last Admin: 03/15/18 21:20 Dose: 1,750 mg Loratadine (Claritin -) 10 mg PO DAILY [facility] Last Admin: 03/16/18 09:37 Dose: 10 mg Montelukast Sodium (Singulair -) 5 mg PO [facility] Last Admin: 03/15/18 21:20 Dose: 5 mg Multi-Ingredient Ointment (Zinc Oxide) 1 applic TP BID [facility] Last Admin: 03/16/18 09:40 Dose: 1 applic Phenobarbital (Phenobarbital Liquid -) 20 mg PEG DAILY [facility] Last Admin: 03/16/18 09:39 Dose: 20 mg Saliva Substitute (Mouthkote Solution -) 1 applic MM DAILY [facility] Last Admin: 03/16/18 09:38 Dose: 1 applic Vancomycin HCl (Vancomycin Oral Solution) 125 mg GT Q6HPO [facility] Last Admin: 03/16/18 12:20 Dose: 125 mg Laboratory Results - last 24 hr 03/16/18 03/16/18 05:30 05:30 WBC 7.0 RBC 2.98 L Hgb 9.5 L Hct 28.2 L MCV 94.6 MCH 32.0 MCHC 33.8 RDW 16.1 H Plt Count 146 MPV 9.1 Absolute Neuts (auto) 3.9 Neutrophils % 55.3 Lymphocytes % 33.4 D Monocytes % 7.0 Eosinophils % 3.6 Basophils % 0.7 Nucleated RBC % 0 Sodium 145 Potassium 3.7 Chloride 111 H Carbon Dioxide 27 Anion Gap 7 L BUN 10 Creatinine 0.3 L Creat Clearance w eGFR > 60 Random Glucose 73 L Calcium 8.3 L Phosphorus 4.0 Magnesium 1.7 L Total Bilirubin 0.4 AST 51 H D ALT 82 H Alkaline Phosphatase 255 H D Total Protein 6.5 Albumin 2.7 L TSH 10.50 H Free T4 1.24 H Microbiology 03/08/18 23:11 Blood - Peripheral Venous Blood Culture - Final NO GROWTH AFTER 5 DAYS INCUBATION 03/08/18 23:11 Blood - Peripheral Venous Blood Culture - Final NO GROWTH AFTER 5 DAYS INCUBATION 03/11/18 13:33 Nares - Left Nares MRSA Screen - Final NO MRSA ISOLATED 03/08/18 23:11 Urine - Urine - Catheterized Urine Culture - Final NO GROWTH OBTAINED 03/09/18 02:41 Stool Clostridium difficile Antigen (CHLOÉ) - Final 03/09/18 02:41 Stool Clostridium difficile Toxin Assay - Final ASSESSMENT AND PLAN: 23yo M from [place] with PMH cerebral palsy, mental retardation, functional quadriplegia was sent to the ER with acute hypoxic respiratory failure. was found to be 88% on RA which did not improve with nasal cannula and sent to the hospital. -Acute hypoxic respiratory failure, ?PNA vs aspiration -Severe sepsis due to ?C difficile colitis, vs above -Elevated LFTs, ?From sepsis vs fatty infiltration -Hyperkalemia, from supplementation, resolved -Hypernatremia, improving -Bradycardia, ?Medications, autonomic dysfunction, ?sleep apnea -Abnormal Thyroid function tests -Ileus, on CT , ?Chronic, tolerating Tube feeds -Cerebral palsy -Epilepsy Plan: ID input noted, Antibiotics d/candis. PO vancomycin. Chest PT, titrate oxygen down as tolerated. frequent deep suctioning. Patient has [place] cath. Trend LFts, Abdominal US with fatty liver. Blood sugars improved. Free water flushes. Telemetry, thyroid panel noted, endocrine input noted. Seizure precautions, Continue vimpat/Keppra. DVTPPx heparin Awaiting transfer to floors. The care of this patient involved high complexity decision making to prevent further life threatening deterioration of the patient's condition and/or to evaluate & treat vital organ system(s) failure or risk of . 40 minutes
[2018-03-16] MEDS ORDERED: SODIUM CHLORIDE 1,000 ML IV STA (17:06)
[2018-03-16] MEDS ORDERED: SODIUM CHLORIDE 1,000 ML IV SCH (17:15)
--- NOTE | 2018-03-16 17:56 | PN ---
Physical Exam: SUBJECTIVE: Patient seen and examined resting comfortably in ICU. No other acute events over night OBJECTIVE: Vital Signs Period Temp Pulse Resp BP Sys/Jay Pulse Ox Last 24 Hr 97.2 F-98.0 F 48-77 15-27 81-135/41-94 95-100 GENERAL: Sitting upright at a 40 degree angle, nonverbal, No acute distress LUNGS: Rhonchi improved, On Ventimask HEART: Regular rate and rhythm, S1, S2 without murmur, rub or gallop. ABDOMEN: Soft, Distended, Hypoactive bowel sounds, PEG tube present in LUQ without bleeding, drainage or surrounding erythema : Shane catheter present draining clear yellow urine EXTREMITIES: Upper extremities Contracted B/L Laboratory Results - last 24 hr 03/16/18 03/16/18 05:30 05:30 WBC 7.0 RBC 2.98 L Hgb 9.5 L Hct 28.2 L MCV 94.6 MCH 32.0 MCHC 33.8 RDW 16.1 H Plt Count 146 MPV 9.1 Absolute Neuts (auto) 3.9 Neutrophils % 55.3 Lymphocytes % 33.4 D Monocytes % 7.0 Eosinophils % 3.6 Basophils % 0.7 Nucleated RBC % 0 Sodium 145 Potassium 3.7 Chloride 111 H Carbon Dioxide 27 Anion Gap 7 L BUN 10 Creatinine 0.3 L Creat Clearance w eGFR > 60 Random Glucose 73 L Calcium 8.3 L Phosphorus 4.0 Magnesium 1.7 L Total Bilirubin 0.4 AST 51 H D ALT 82 H Alkaline Phosphatase 255 H D Total Protein 6.5 Albumin 2.7 L TSH 10.50 H Free T4 1.24 H Microbiology 03/08/18 23:11 Blood - Peripheral Venous Blood Culture - Final NO GROWTH AFTER 5 DAYS INCUBATION 03/08/18 23:11 Blood - Peripheral Venous Blood Culture - Final NO GROWTH AFTER 5 DAYS INCUBATION 03/11/18 13:33 Nares - Left Nares MRSA Screen - Final NO MRSA ISOLATED 03/08/18 23:11 Urine - Urine - Catheterized Urine Culture - Final NO GROWTH OBTAINED 03/09/18 02:41 Stool Clostridium difficile Antigen (CHLOÉ) - Final 03/09/18 02:41 Stool Clostridium difficile Toxin Assay - Final Active Medications Amino Acids (Prosource No Carb Liquid Pkt) 30 ml PO DAILY@0800 [facility] Bacitracin/Polymyxin B Sulfate (Polysporin Ointment -) 1 applic TP BID [facility] Diazepam (Valium -) 1 mg PO TID [facility] Gabapentin (Neurontin -) 400 mg PO BID [facility] Heparin Sodium (Porcine) (Heparin -) 5,000 unit SQ TID [facility] Sodium Chloride (Normal Saline -) 1,000 mls @ 100 mls/hr IV ASDIR [facility] Last Admin: 03/16/18 17:15 Dose: Not Given Lacosamide (Vimpat -) 50 mg PO BID [facility] Levetiracetam (Keppra Oral Solution -) 1,500 mg PO DAILY [facility] Levetiracetam (Keppra Oral Solution -) 1,750 mg PO HS [facility] Loratadine (Claritin -) 10 mg PO DAILY [facility] Montelukast Sodium (Singulair -) 5 mg PO HS [facility] Multi-Ingredient Ointment (Zinc Oxide) 1 applic TP BID [facility] Phenobarbital (Phenobarbital Liquid -) 20 mg PEG DAILY [facility] Saliva Substitute (Mouthkote Solution -) 1 applic MM DAILY [facility] Vancomycin HCl (Vancomycin Oral Solution) 125 mg GT Q6HPO [facility] Last Admin: 03/16/18 18:27 Dose: 125 mg IMAGING - CXR: Imaging reveals scoliosis with extensive spinal support rods, weak inspiration with bilateral effusions, infiltrates and large heart. There is abdominal distention which is quite diffuse. The bones and soft tissues are intact. - CT Abdomen Pelvis: Extensive bilateral pulmonary consolidation with poor aeration of the lung ortiz. Marked air and fluid distention of the entire colon with no gross evidence of obstruction. Markedly limited study as described above. ASSESSMENT/PLAN: 23 y/o M resident of [place] with PMHx of profound developmental delay, cerebral palsy, functional quadriplegia, non-interactive at baseline, reactive airway disease, seizure disorder was admitted for Acute hypoxic respiratory failure. 1. Abnormal Thyroid function tests - TSH and Free T4 high - Endocrine consulted 2. Acute hypoxic respiratory failure - Tachypnic, Rhonchi improved however - 88% Saturation did not improve on 5L via SD at [place] as per chart - Currently on Ventimask, Sats at 99% - Continue Deep suctioning - Consider Aspiration pneumonia - Chest physio therapy - Frequent deep suctioning - Pulmonology consulted, appreciate rec's 3. Severe Sepsis - Likely due to HCAP - Previous Lactic Acid: 1.3 - Continue PO Vancomycin - ID Consulted, appreciate rec's, ABx discontinued - GI Consulted, appreciate rec's - Cultures pending - Will discontinue shane today 4. Diarrhea - Suspected C. Diff, Stool was positive for C. Diff antigen on this visit - Pending C. Diff PCR - Lactulose on home medication list; clarify from NH whether he is still getting it - Hx of stool C.Diff antigen positive but toxin negative--given oral vancomycin in 08/2017 - No loose stools since ICU Admission - Continue with Oral Vancomycin 5. Hypokalemia - Resolved. Was Hyperkalemic (5.5) - Discontinue KCL 40meq PO TID 6. HyperNatremia - Increased Free water added to tube feed 7. Hypoglycemia - Improving on tube feeds - Continue BGM 8. Ileus - Seen on CT - PEG tube already in place to suction - Abdominal distension improved - Hypoactive bowel sounds - Tolerating Tube feed - GI Consulted, appreciate rec's 9. Acute transaminitis - Elevated LFTs may be part of the sepsis syndrome - Trending down - Consider abdominal Ultrasound - Hepatitis panel pending 10. Seizure disorder - Continue Keppra 11. DVT ppx - Heparin 5000U TID SQ Dispo - Transfer to floors Visit type - Emergency Visit Emergency Visit: Yes ED Registration Date: 03/09/18 Care time: The patient presented to the Emergency Department on the above date and was hospitalized for further evaluation of their emergent condition. - New Patient This patient is new to me today: No - Critical Care Critical Care patient: Yes Total Critical Care Time (in minutes): 37 Critical Care Statement: The care of this patient involved high complexity decision making to prevent further life threatening deterioration of the patient 's condition and/or to evaluate & treat vital organ system(s) failure or risk of failure.
--- NOTE | 2018-03-16 18:21 | CON.CARD ---
Consult Consult Specialty:: cardiology Reason for Consultation:: bradycardia - History of Present Illness History of Present Illness: This is a 23 YO black man with h/o profound MR/DD, cerebral palsy, spastic quadriplegia, non-interactive at baseline, reactive airway disease, seizure disorder, constipation, and perforated viscous s/p laparotomy;scoliosis, /p spinal surgery ([place] rods), who was BIBA from [place] for desaturations on room air. The house RISK CONTROL SPECIALIST at [place] reports that the patient was desaturating to 88% on RA, improved to only 89-90% on 5 LPM O2, crackles on auscultation with L>R. Vitals reported at [place] are temp 95, SaO2 89%, BP 97/63, RR 24. His mother's phone # is [phone]. - History Source History Provided By: Patient, Medical Record Limitations to Obtaining History: No Limitations - Past Medical History Pulmonary: Yes: Other (hypoxia/hypercarbia) Heme/Onc: Yes: Anemia Psych: Yes: Other (mental retardation) Musculoskeletal: Yes: Other (quadriplegia) Additional Medical History: Profound MR, spastic quadraplegia and cerbral palsy - Past Surgical History Additional Surgical History: ? surgery for bowel perforation in past, ? G-Tube placement - Alcohol/Substance Use Hx Alcohol Use: No History of Substance Use: reports: None - Smoking History Smoking history: Never smoked Have you smoked in the past 12 months: No - Social History Usual Living Arrangement: Skilled Nursing History of Recent Travel: No Home Medications - Allergies Allergies/Adverse Reactions: Allergies Allergy/AdvReac Type Severity Reaction Status Date / Time chloral hydrate Allergy Verified 03/08/18 21:39 piperacillin sodium Allergy Verified 03/08/18 21:39 [From Zosyn] tazobactam sodium Allergy Verified 03/08/18 21:39 [From Zosyn] - Home Medications Home Medications: Ambulatory Orders Albuterol 0.083% Nebulizer Martha [Ventolin 0.083% Nebulizer Soln -] 1 neb NEB QID PRN 12/03/16 Clobetasol Propionate/Emoll [Clobetasol Emollient 0.05% Crm] 15 gm TP DAILY 01/14 Diazepam 2 mg PO TID 12/03/16 Gabapentin 400 mg PO BID 12/03/16 Glycopyrrolate in Water/Pf [Glycopyrrolate 1 mg/5 ml-Water] 1 mg IV BID Lacosamide [Vimpat -] 50 mg PO BID 12/03/16 Montelukast Na [Singulair -] 5 mg PO HS 12/03/16 Phenobarbital 20 mg GT DAILY 12/03/16 Scopolamine [Transderm-Scop] 1 each TD Q2D 12/03/16 Albuterol 2.5/Ipratropium 0.5 [Duoneb -] 1 neb IH QID 09/04/17 Lactulose [Cephulac -] 30 ml GT DAILY 09/04/17 levETIRAcetam [Keppra Oral Solution -] 1,500 mg GT DAILY 09/04/17 levETIRAcetam [Keppra Oral Solution -] 1,700 mg GT HS 09/04/17 Lacosamide Liquid [Vimpat Liquid -] 50 mg GT BID cup MDD 100 mg 09/18/17 Vancomycin Oral Solution 125 mg PEG Q6HPO ml 09/18/17 Zinc Oxide 1 applic TP BID tube 09/18/17 Electrolyte,Oral [Pedialyte -] 45 ml PO WEEKLY 03/09/18 Fluticasone Propionate [Flovent Diskus] 220 mcg IH BID 03/09/18 Magnesium Citrate 120 ml PO WEEKLY 03/09/18 Magnesium Hydrox 2400MG/30Ml [Milk of Magnesia -] 30 ml GT BID 03/09/18 Protein Supplement [Promod] 30 ml GT DAILY 03/09/18 Sennosides [Senna] 17.2 mg PO DAILY 03/09/18 Family Disease History - Family Disease History Other Family History: Unable to obtain Review of Systems Unable to obtain ROS, reason: pt is mentally defiicient - Risk Factors Known Risk Factors: Yes: Physical Inactivity (quadriplegia; severe developmental disorder), Race, Other Vital Signs: Vital Signs Temperature 96.9 F L 03/16/18 18:00 Pulse Rate 70 03/16/18 18:00 Respiratory Rate 19 03/16/18 18:00 Blood Pressure 101/65 03/16/18 18:00 O2 Sat by Pulse Oximetry (%) 96 03/16/18 09:31 Abnormal Lab Results 03/16/18 03/17/18 03/17/18 05:30 05:30 05:30 WBC 12.0 H RBC 3.01 L Hgb 9.6 L Hct 28.2 L Chloride 111 H 109 H Anion Gap 7 L 7 L Creatinine 0.3 L 0.3 L Random Glucose 73 L Calcium 8.3 L 8.2 L Magnesium 1.7 L AST 51 H D 67 H D ALT 82 H 86 H Alkaline Phosphatase 255 H D 269 H D Albumin 2.7 L 2.8 L TSH 10.50 H Free T4 1.24 H Constitutional: Yes: Other (small stature; contracted) Neck: Yes: Decreased ROM Respiratory: Yes: Diminished Renal/: No: Anuria Cardiovascular: Yes: Bradycardia JVD: No Carotid Bruit: No PMI: Non-Displaced Heart Sounds: Yes: S1, S2 Murmur: Yes: Systolic Murmur, Grade 1 Musculoskeletal: Yes: Joint Stiffness, Muscle Weakness, Other (contracture; "spastic quadriplegia") Extremities: Yes: Cool, Shortened Edema: No Peripheral Pulses WNL: Yes Neurological: Yes: Weakness Psychiatric: Yes: Other - Other Data Labs, Other Data: CBC, BMP 03/16/18 05:30 03/16/18 05:30 INR, PTT INR 1.58 (0.82-1.09) H 03/10/18 05:30 Abnormal Lab Results 03/16/18 03/17/18 03/17/18 05:30 05:30 05:30 WBC 12.0 H RBC 3.01 L Hgb 9.6 L Hct 28.2 L Chloride 111 H 109 H Anion Gap 7 L 7 L Creatinine 0.3 L 0.3 L Random Glucose 73 L Calcium 8.3 L 8.2 L Magnesium 1.7 L AST 51 H D 67 H D ALT 82 H 86 H Alkaline Phosphatase 255 H D 269 H D Albumin 2.7 L 2.8 L TSH 10.50 H Free T4 1.24 H Imaging - Results EKG: Image Reviewed (Several done, ranging from mild sinus bradycardia with nonspecific T wave changes to NSR) Problem List - Problems (1) Sinus bradycardia Assessment/Plan: R/o reversible causes of slow HR, e.g. hypothyroidism, hypercarbia, hypothermia , , medications (particularly AV conduction blockers, opiates, parasympathomimetics), Lyme or other infectious causes, YAKELIN, SSS, exagerrated vagal activity from altered body habitus//developmental disorder). F/u with serial EKGs, telemetry, Maintain electrolytes WNL (K+ swings noted). ECHO for LVEF, wall motion, valve status. Pt shows periods of sinus bradycardia interspersed with NSR. Prolonged periods of marked refractory bradycardia without discerible etiology might lead to need of PPM, but this does not appear to be the case presently. Code(s): R00.1 - BRADYCARDIA, UNSPECIFIED (2) Respiratory distress Code(s): R06.03 - ACUTE RESPIRATORY DISTRESS (3) Fever Code(s): R50.9 - FEVER, UNSPECIFIED (4) Perforated abdominal viscus Code(s): FKO1748 - (5) S/P exploratory laparotomy Code(s): Z98.890 - OTHER SPECIFIED POSTPROCEDURAL STATES (6) Reactive airway disease Code(s): J45.909 - UNSPECIFIED ASTHMA, UNCOMPLICATED (7) Seizure disorder Code(s): G40.909 - EPILEPSY, UNSP, NOT INTRACTABLE, WITHOUT STATUS EPILEPTICUS
[2018-03-16] MEDS: MONTELUKAST NA 5 MG TAB.CHEW PO SCH (21:08)
--- NOTE | 2018-03-16 21:41 | EKG ---
Test Reason : Blood Pressure : / mmHG Vent. Rate : 061 BPM Atrial Rate : 061 BPM P-R Int : 164 ms QRS Dur : 098 ms QT Int : 374 ms P-R-T Axes : 012 040 026 degrees QTc Int : 376 ms NORMAL SINUS RHYTHM POSSIBLE INFERIOR INFARCT , AGE UNDETERMINED ABNORMAL ECG WHEN COMPARED WITH ECG OF 16-MAR-2018 08:54, NO SIGNIFICANT CHANGE WAS FOUND Confirmed by MD ADÁN, MARCOS ([id number]) on 03/16/2018 9:41:22 PM Referred By: BRIE VERNON Confirmed By:MARCOS MCCAIN MD
[2018-03-16] MEDS: levETIRAcetam 500 MG/5 ML ORAL SOLUTION (UNIT-DOSE CUPS) PO SCH (22:00)
[2018-03-17] MEDS: VANCOMYCIN 250 MG/5 ML ORAL SOLUTION GT SCH ×4 (00:05→17:17)
[2018-03-17] MEDS ORDERED: PT OWN MED DRAWER 7, Y5N ONE ×4 (05:42→21:06)
[2018-03-17] MEDS: diazePAM 2 MG TABLET PO SCH ×3 (05:44→22:16)
[2018-03-17] MEDS: HEPARIN NA (PORCINE) 5,000 UNITS/ML 1ML VIAL SQ SCH ×3 (05:44→22:11)
[2018-03-17 06:01] LABS: BASO % 0.5 % (0-2.0); EOS % 2.7 % (0-4.5); HEMATOCRIT 28.2 % (35.4-49); HEMOGLOBIN 9.6 GM/dL (11.7-16.9); LYMPH % 33.1 % (8-40); MCH 31.8 pg (25.7-33.7); MCHC 33.9 g/dl (32.0-35.9); MEAN CELL VOLUME 93.7 fl (80-96); MEAN PLT VOLUME 8.9 fl (7.5-11.1); MONO % 6.3 % (3.8-10.2); NEUT % 57.4 % (42.8-82.8); PLATELET COUNT 217 K/MM3 (134-434); RBC 3.01 M/mm3 (4.00-5.60); RDW 15.9 % (11.9-15.9)
[2018-03-17 06:58] LABS: CHLORIDE 109 mmol/L (98-107); POTASSIUM 3.7 mmol/L (3.5-5.1); SODIUM 145 mmol/L (136-145)
[2018-03-17 07:04] LABS: ALBUMIN 2.8 g/dl (3.4-5.0); ALK PHOS 269 U/L (45-117); ANION GAP 7 (8-16); BILIRUBIN,TOTAL 0.3 mg/dL (0.2-1.0); BLOOD UREA NITROGEN 9 mg/dL (7-18); CALCIUM 8.2 mg/dL (8.5-10.1); CO2 29 mmol/L (21-32); CREATININE 0.3 mg/dL (0.7-1.3); GLUCOSE,RANDOM 75 mg/dL (74-106); MAGNESIUM 1.8 mg/dL (1.8-2.4); PHOSPHOROUS 3.7 mg/dL (2.5-4.9); SGOT/AST 67 U/L (15-37); SGPT/ALT 86 U/L (12-78); TOT PROT 6.7 g/dl (6.4-8.2)
[2018-03-17] MEDS: BACITRACIN/POLYMYXIN B SULFATE 15 GM TUBE TP SCH ×2 (09:39→22:13)
[2018-03-17] MEDS: ZINC OXIDE 20% TOPICAL OINTMENT 30 GM TUBE TP SCH ×2 (09:40→22:13)
[2018-03-17] MEDS: LORATADINE 10 MG TABLET PO SCH (09:45)
[2018-03-17] MEDS: levETIRAcetam 500 MG/5 ML ORAL SOLUTION (UNIT-DOSE CUPS) PO SCH ×2 (09:51→22:14)
[2018-03-17] MEDS: GABAPENTIN 400 MG CAPSULE (FP) PO SCH ×2 (09:52→22:14)
[2018-03-17] MEDS: PHENobarbital 20 MG/5 ML UNIT-DOSE CUP PEG SCH (09:53)
[2018-03-17] MEDS: LACOSAMIDE 50 MG TABLET PO SCH ×2 (09:53→22:15)
[2018-03-17] MEDS: AMINO ACIDS/PROTEIN HYDROLYS 30 ML LIQUID.PKT PO SCH (09:53)
[2018-03-17] MEDS: LYTES/YERBA SANTA 240 ML BOTTLE MM SCH (10:00)
[2018-03-17] MEDS ORDERED: SCOPOLAMINE HYDROBROMIDE 1 PATCH PATCH.TD72 TD SCH (10:00)
--- NOTE | 2018-03-17 11:37 | PN ---
Teaching Attending Note Name of Resident: Eric Gonzalez ATTENDING PHYSICIAN STATEMENT I saw and evaluated the patient. I reviewed the resident's note and discussed the case with the resident. I agree with the resident's findings and plan as documented. SUBJECTIVE: Pt seen and examined in the ICU. Saturating well on nasal cannula. No fevers recorded. Episodes of sinus bradycardia. OBJECTIVE: Vital Signs Period Temp Pulse Resp BP Sys/Jay Pulse Ox Last 24 Hr 96.9 F-99.2 F 52-72 16-24 88-121/41-78 96-98 Intake & Output 03/14/18 03/15/18 03/16/18 03/17/18 23:59 23:59 23:59 23:59 Intake Total 2678 2210 2160 1060 Output Total 3700 1110 600 Balance -1022 1100 1560 1060 Weight 38.8 kg 39.661 kg 39.633 kg 34.019 kg Gen: less tachypneic Heart: RRR Lung: scattered rhonchi Abd: soft, nontender Ext: contracted, no edema CBC, BMP 03/17/18 05:30 03/17/18 05:30 Active Medications Amino Acids (Prosource No Carb Liquid Pkt) 30 ml PO DAILY@0800 [facility] Last Admin: 03/17/18 09:53 Dose: 30 ml Bacitracin/Polymyxin B Sulfate (Polysporin Ointment -) 1 applic TP BID [facility] Last Admin: 03/16/18 21:10 Dose: 1 applic Diazepam (Valium -) 1 mg PO TID [facility] Last Admin: 03/17/18 05:44 Dose: 1 mg Gabapentin (Neurontin -) 400 mg PO BID [facility] Last Admin: 03/17/18 09:52 Dose: 400 mg Heparin Sodium (Porcine) (Heparin -) 5,000 unit SQ TID [facility] Last Admin: 03/17/18 05:44 Dose: 5,000 unit Lacosamide (Vimpat -) 50 mg PO BID [facility] Last Admin: 03/17/18 09:53 Dose: 50 mg Levetiracetam (Keppra Oral Solution -) 1,500 mg PO DAILY [facility] Last Admin: 03/17/18 09:51 Dose: 1,500 mg Levetiracetam (Keppra Oral Solution -) 1,750 mg PO HS [facility] Last Admin: 03/16/18 22:00 Dose: 1,750 mg Loratadine (Claritin -) 10 mg PO DAILY [facility] Last Admin: 03/17/18 09:45 Dose: 10 mg Montelukast Sodium (Singulair -) 5 mg PO HS [facility] Last Admin: 03/16/18 21:08 Dose: 5 mg Multi-Ingredient Ointment (Zinc Oxide) 1 applic TP BID [facility] Last Admin: 03/16/18 21:10 Dose: 1 applic Phenobarbital (Phenobarbital Liquid -) 20 mg PEG DAILY [facility] Last Admin: 03/17/18 09:53 Dose: 20 mg Saliva Substitute (Mouthkote Solution -) 1 applic MM DAILY [facility] Vancomycin HCl (Vancomycin Oral Solution) 125 mg GT Q6HPO [facility] Last Admin: 03/17/18 05:44 Dose: 125 mg ASSESSMENT AND PLAN: Acute Hypoxic Respiratory Failure improving Pneumonia likely Aspiration Severe Sepsis resolving Elevated LFTs likely ischemic injury Abdominal Distention/Constipation Seizure Disorder Mental Retardation - completed antibiotics - trend LFTs - aspiration precautions - O2 to keep SpO2 >90% - continue antiepileptics - DVT prophylaxis - can monitor on telemetry
--- NOTE | 2018-03-17 12:35 | PN ---
Progress Note, Physician History of Present Illness: This is a 23 YO black man with h/o profound MR/DD, cerebral palsy, spastic quadriplegia, non-interactive at baseline, reactive airway disease, seizure disorder, constipation, and perforated viscous s/p laparotomy;scoliosis, /p spinal surgery ([place] rods), who was BIBA from [place] for desaturations on room air. The house TIE LOADER at [place] reports that the patient was desaturating to 88% on RA, improved to only 89-90% on 5 LPM O2, crackles on auscultation with L>R. Vitals reported at [place] are temp 95, SaO2 89%, BP 97/63, RR 24. His mother's phone # is [phone]. - Current Medication List Current Medications: Active Medications Amino Acids (Prosource No Carb Liquid Pkt) 30 ml PO DAILY@0800 [facility] Last Admin: 03/17/18 09:53 Dose: 30 ml Bacitracin/Polymyxin B Sulfate (Polysporin Ointment -) 1 applic TP BID [facility] Last Admin: 03/16/18 21:10 Dose: 1 applic Diazepam (Valium -) 1 mg PO TID [facility] Last Admin: 03/17/18 05:44 Dose: 1 mg Gabapentin (Neurontin -) 400 mg PO BID [facility] Last Admin: 03/17/18 09:52 Dose: 400 mg Heparin Sodium (Porcine) (Heparin -) 5,000 unit SQ TID [facility] Last Admin: 03/17/18 05:44 Dose: 5,000 unit Lacosamide (Vimpat -) 50 mg PO BID [facility] Last Admin: 03/17/18 09:53 Dose: 50 mg Levetiracetam (Keppra Oral Solution -) 1,500 mg PO DAILY [facility] Last Admin: 03/17/18 09:51 Dose: 1,500 mg Levetiracetam (Keppra Oral Solution -) 1,750 mg PO HS [facility] Last Admin: 03/16/18 22:00 Dose: 1,750 mg Loratadine (Claritin -) 10 mg PO DAILY [facility] Last Admin: 03/17/18 09:45 Dose: 10 mg Montelukast Sodium (Singulair -) 5 mg PO [facility] Last Admin: 03/16/18 21:08 Dose: 5 mg Multi-Ingredient Ointment (Zinc Oxide) 1 applic TP BID [facility] Last Admin: 03/16/18 21:10 Dose: 1 applic Phenobarbital (Phenobarbital Liquid -) 20 mg PEG DAILY [facility] Last Admin: 03/17/18 09:53 Dose: 20 mg Saliva Substitute (Mouthkote Solution -) 1 applic MM DAILY [facility] Vancomycin HCl (Vancomycin Oral Solution) 125 mg GT Q6HPO [facility] Last Admin: 03/17/18 05:44 Dose: 125 mg - Objective Vital Signs: Vital Signs Temperature 99.2 F 03/17/18 06:00 Pulse Rate 66 03/17/18 08:00 Respiratory Rate 18 03/17/18 08:00 Blood Pressure 103/69 03/17/18 08:00 O2 Sat by Pulse Oximetry (%) 98 03/16/18 22:00 Eyes: Yes: WNL, Conjunctiva Clear, EOM Intact HENT: Yes: WNL, Atraumatic, Normocephalic Neck: Yes: WNL, Supple, Trachea Midline Cardiovascular: Yes: WNL, Regular Rate and Rhythm Respiratory: Yes: WNL, Regular, CTA Bilaterally Gastrointestinal: Yes: WNL, Normal Bowel Sounds Genitourinary: Yes: WNL Musculoskeletal: Yes: WNL Extremities: Yes: WNL Edema: No Integumentary: Yes: WNL ...Motor Strength: WNL Psychiatric: Yes: WNL Labs: CBC, BMP 03/17/18 05:30 03/17/18 05:30 INR, PTT INR 1.58 (0.82-1.09) H 03/10/18 05:30 Assessment/Plan Problems (1) Sinus bradycardia Assessment/Plan: R/o reversible causes of slow HR, e.g. hypothyroidism, hypercarbia, hypothermia , , medications (particularly AV conduction blockers, opiates, parasympathomimetics), Lyme or other infectious causes, YAKELIN, SSS, exagerrated vagal activity from altered body habitus//developmental disorder). F/u with serial EKGs, telemetry, Maintain electrolytes WNL (K+ swings noted). ECHO for LVEF, wall motion, valve status. Pt shows periods of sinus bradycardia interspersed with NSR. Prolonged periods of marked refractory bradycardia without discerible etiology might lead to need of PPM, but this does not appear to be the case presently. Code(s): R00.1 - BRADYCARDIA, UNSPECIFIED (2) Respiratory distress Code(s): R06.03 - ACUTE RESPIRATORY DISTRESS (3) Fever - c diff Code(s): R50.9 - FEVER, UNSPECIFIED (4) Perforated abdominal viscus Code(s): VNW2176 - (5) S/P exploratory laparotomy Code(s): Z98.890 - OTHER SPECIFIED POSTPROCEDURAL STATES (6) Reactive airway disease Code(s): J45.909 - UNSPECIFIED ASTHMA, UNCOMPLICATED (7) Seizure disorder Code(s): G40.909 - EPILEPSY, UNSP, NOT INTRACTABLE, WITHOUT STATUS EPILEPTICUS cc time 35 min
--- NOTE | 2018-03-17 12:45 | EKG ---
Test Reason : Blood Pressure : / mmHG Vent. Rate : 058 BPM Atrial Rate : 058 BPM P-R Int : 168 ms QRS Dur : 108 ms QT Int : 370 ms P-R-T Axes : 015 030 021 degrees QTc Int : 363 ms SINUS BRADYCARDIA INFERIOR INFARCT (CITED ON OR BEFORE 16-MAR-2018) ABNORMAL ECG WHEN COMPARED WITH ECG OF 16-MAR-2018 14:48, NO SIGNIFICANT CHANGE WAS FOUND Confirmed by ZOILA FONG MD ([id number]) on 03/17/2018 12:44:51 PM Referred By: TODD FRYE DR Confirmed By:ZOILA FONG MD
--- NOTE | 2018-03-17 13:56 | CONSULT ---
Consult Consult Specialty:: Endocrinology Referred by:: Dr Almaraz Reason for Consultation:: Abnormal TFt - History of Present Illness Chief Complaint: SOB History of Present Illness: This is a 23 Y/O M with h/o profound MR/DD, cerebral palsy, spastic quadriplegia , non-interactive at baseline, reactive airway disease, seizure disorder, constipation, and perforated viscous s/p laparotomy who was BIBA from [place] for desaturations on room air. The house SECURITIES SUPERVISOR at [place] reports that the patient was desaturating to 88% on RA, improved to only 89-90% on 5 LPM O2, crackles on auscultation with L>R. Vitals reported at [place] are temp 95, SaO2 89%, BP 97/63, RR 24. In the ER course was found to be bradycardic hypothermic, hypoxic and had watery diarrhea. He was started on warming blanket , IV fluids, azithromycin and aztreonam. Pt admitted to ICU and treated for Sepsis. Pt referred for evaluation of abnormal TFT with TSH 10.5, FT4 1.24. - History Source History Provided By: Medical Record - Past Medical History Pulmonary: Yes: Other (hypoxia/hypercarbia) Psych: Yes: Other (mental retardation) Musculoskeletal: Yes: Other (quadriplegia) Additional Medical History: Profound MR, spastic quadraplegia and cerbral palsy - Past Surgical History Additional Surgical History: ? surgery for bowel perforation in past, ? G-Tube placement - Alcohol/Substance Use Hx Alcohol Use: No History of Substance Use: reports: None - Smoking History Smoking history: Never smoked Have you smoked in the past 12 months: No - Social History Usual Living Arrangement: Intermediate History of Recent Travel: No Home Medications - Allergies Allergies/Adverse Reactions: Allergies Allergy/AdvReac Type Severity Reaction Status Date / Time chloral hydrate Allergy Verified 03/08/18 21:39 piperacillin sodium Allergy Verified 03/08/18 21:39 [From Zosyn] tazobactam sodium Allergy Verified 03/08/18 21:39 [From Zosyn] - Home Medications Home Medications: Ambulatory Orders Albuterol 0.083% Nebulizer Martha [Ventolin 0.083% Nebulizer Soln -] 1 neb NEB QID PRN 12/03/16 Clobetasol Propionate/Emoll [Clobetasol Emollient 0.05% Crm] 15 gm TP DAILY 01/14 Diazepam 2 mg PO TID 12/03/16 Gabapentin 400 mg PO BID 12/03/16 Glycopyrrolate in Water/Pf [Glycopyrrolate 1 mg/5 ml-Water] 1 mg IV BID Lacosamide [Vimpat -] 50 mg PO BID 12/03/16 Montelukast Na [Singulair -] 5 mg PO HS 12/03/16 Phenobarbital 20 mg GT DAILY 12/03/16 Scopolamine [Transderm-Scop] 1 each TD Q2D 12/03/16 Albuterol 2.5/Ipratropium 0.5 [Duoneb -] 1 neb IH QID 09/04/17 Lactulose [Cephulac -] 30 ml GT DAILY 09/04/17 levETIRAcetam [Keppra Oral Solution -] 1,500 mg GT DAILY 09/04/17 levETIRAcetam [Keppra Oral Solution -] 1,700 mg GT HS 09/04/17 Lacosamide Liquid [Vimpat Liquid -] 50 mg GT BID cup MDD 100 mg 09/18/17 Vancomycin Oral Solution 125 mg PEG Q6HPO ml 09/18/17 Zinc Oxide 1 applic TP BID tube 09/18/17 Electrolyte,Oral [Pedialyte -] 45 ml PO WEEKLY 03/09/18 Fluticasone Propionate [Flovent Diskus] 220 mcg IH BID 03/09/18 Magnesium Citrate 120 ml PO WEEKLY 03/09/18 Magnesium Hydrox 2400MG/30Ml [Milk of Magnesia -] 30 ml GT BID 03/09/18 Protein Supplement [Promod] 30 ml GT DAILY 03/09/18 Sennosides [Senna] 17.2 mg PO DAILY 03/09/18 Family Disease History - Family Disease History Other Family History: Unable to obtain Review of Systems Unable to obtain ROS, reason: not interactive Physical Exam Vital Signs: Vital Signs Temperature 98.8 F 03/17/18 10:00 Pulse Rate 68 03/17/18 12:00 Respiratory Rate 24 03/17/18 12:00 Blood Pressure 101/68 03/17/18 12:00 O2 Sat by Pulse Oximetry (%) 98 03/16/18 22:00 Constitutional: Yes: No Distress Eyes: Yes: Conjunctiva Clear HENT: Yes: Atraumatic, Normocephalic Neck: Yes: Supple Cardiovascular: Yes: Regular Rate and Rhythm Respiratory: Yes: Regular, Rhonchi (scattered) Gastrointestinal: Yes: Normal Bowel Sounds, Soft Extremities: Yes: Other (contracted) Edema: No Labs: CBC, BMP 03/17/18 05:30 03/17/18 05:30 Imaging - Results Chest X-ray: Report Reviewed Cat Scan: Report Reviewed Assessment/Plan AP; Hypoxic Respiratory Failure Pneumonia likely Aspiration Severe Sepsis Elevated LFTs likely ischemic injury Abdominal Distention/Constipation Seizure Disorder Mental Retardation Episode bradycardia: likely multifactorial: (?) Medication (?) Autonomic dysfunction (?) Sleep apnea epsis Abnormal TFT: TSH of 10.5 with FT4 of 1.24. FT4 is reported as high. I believe FT4 is WNL and the calibration of the test is now accurate. Will RPt TFT with TPO. If repeat TSH is > 10 will start LT4 replacement. Will F/u
--- NOTE | 2018-03-17 14:14 | ECHO ---
Name: REED, SHILPA Exam:Adult Echocardiogram Study Date: 03/17/2018 10:49 AM Reason For Study: SINUS BRADYCARDIA Height: 50 in Weight: 87 lb BSA: 1.1 m2 BP: 103/69 mmHg MMode/2D Measurements & Calculations IVSd: 0.76 cm LA dimension: 3.3 cm LVIDd: 4.4 cm LVIDs: 2.7 cm LVPWd: 0.71 cm EDV(Teich): 85.8 ml RV S Jose M: 14.0 cm/sec ESV(Teich): 27.0 ml Doppler Measurements & Calculations MV E max jose m: 75.0 cm/sec MR max jose m: 164.0 cm/sec MV A max jose m: 78.0 cm/sec MR max P.8 mmHg MV E/A: 0.96 MV dec time: 0.15 sec TR max jose m: 224.8 cm/sec Med Peak E' Jose M: 9.0 cm/sec TR max P.2 mmHg Med E/e': 8.3 Lat Peak E' Jose M: 8.7 cm/sec Lat E/e': 8.7 Procedure A two-dimensional transthoracic echocardiogram with color flow and Doppler was performed. Left Ventricle The left ventricular size, thickness and function are normal. The left ventricular ejection fraction is normal. The left ventricular wall motion is normal. Right Ventricle The right ventricle is normal in size and function. Atria Normal left and right atrial size and function. Mitral Valve There is mild mitral valve thickening. There is no mitral valve stenosis. There is trace mitral regur gitation. Tricuspid Valve There is mild tricuspid valve thickening. There is no tricuspid stenosis. There is Trace to mild tric uspid regurgitation. Right ventricular systolic pressure is normal. Aortic Valve The aortic valve is not well visualized. No hemodynamically significant valvular aortic stenosis. No aortic regurgitation is present. Pulmonic Valve The pulmonic valve is not well seen, but is grossly normal. There is no pulmonic valvular stenosis. T here is no pulmonic valvular regurgitation. Great Vessels The aortic root is not well visualized. Pericardium/Pleura There is a mild pericardial effusion. Interpretation Summary The left ventricular size, thickness and function are normal The left ventricular ejection fraction is normal. The left ventricular wall motion is normal. There is trace mitral regurgitation. There is Trace to mild tricuspid regurgitation. Right ventricular systolic pressure is normal. MD Sage Clemente 03/17/2018 02:14 PM
--- NOTE | 2018-03-17 18:05 | PN ---
Physical Exam: SUBJECTIVE: Patient seen and examined resting comfortably in ICU. No other acute events over night. OBJECTIVE: Vital Signs Period Temp Pulse Resp BP Sys/Jay Pulse Ox Last 24 Hr 97 F-99.2 F 56-72 16-26 86-121/42-78 94-98 GENERAL: Sitting upright at a 40 degree angle, nonverbal, No acute distress LUNGS: Rhonchi improved, less tachypnea, on Ventimask HEART: Regular rate and rhythm, S1, S2 without murmur, rub or gallop. ABDOMEN: Soft, Distended, Hypoactive bowel sounds, PEG tube present in LUQ : Shane catheter present draining clear yellow urine EXTREMITIES: Upper extremities Contracted B/L Laboratory Results - last 24 hr 03/17/18 03/17/18 05:30 05:30 WBC 12.0 H RBC 3.01 L Hgb 9.6 L Hct 28.2 L MCV 93.7 MCH 31.8 MCHC 33.9 RDW 15.9 Plt Count 217 D MPV 8.9 Absolute Neuts (auto) 6.9 Neutrophils % 57.4 Lymphocytes % 33.1 Monocytes % 6.3 Eosinophils % 2.7 Basophils % 0.5 Nucleated RBC % 0 Sodium 145 Potassium 3.7 Chloride 109 H Carbon Dioxide 29 Anion Gap 7 L BUN 9 Creatinine 0.3 L Creat Clearance w eGFR > 60 Random Glucose 75 Calcium 8.2 L Phosphorus 3.7 Magnesium 1.8 Total Bilirubin 0.3 AST 67 H D ALT 86 H Alkaline Phosphatase 269 H D Total Protein 6.7 Albumin 2.8 L Microbiology 03/08/18 23:11 Blood - Peripheral Venous Blood Culture - Final NO GROWTH AFTER 5 DAYS INCUBATION 03/08/18 23:11 Blood - Peripheral Venous Blood Culture - Final NO GROWTH AFTER 5 DAYS INCUBATION 03/11/18 13:33 Nares - Left Nares MRSA Screen - Final NO MRSA ISOLATED 03/08/18 23:11 Urine - Urine - Catheterized Urine Culture - Final NO GROWTH OBTAINED 03/09/18 02:41 Stool Clostridium difficile Antigen (CHLOÉ) - Final 03/09/18 02:41 Stool Clostridium difficile Toxin Assay - Final Active Medications Amino Acids (Prosource No Carb Liquid Pkt) 30 ml PO DAILY@0800 [facility] Last Admin: 03/17/18 09:53 Dose: 30 ml Bacitracin/Polymyxin B Sulfate (Polysporin Ointment -) 1 applic TP BID [facility] Last Admin: 03/16/18 21:10 Dose: 1 applic Diazepam (Valium -) 1 mg PO TID [facility] Last Admin: 03/17/18 15:01 Dose: 1 mg Gabapentin (Neurontin -) 400 mg PO BID [facility] Last Admin: 03/17/18 09:52 Dose: 400 mg Heparin Sodium (Porcine) (Heparin -) 5,000 unit SQ TID [facility] Last Admin: 03/17/18 15:04 Dose: 5,000 unit Lacosamide (Vimpat -) 50 mg PO BID [facility] Last Admin: 03/17/18 09:53 Dose: 50 mg Levetiracetam (Keppra Oral Solution -) 1,500 mg PO DAILY [facility] Last Admin: 03/17/18 09:51 Dose: 1,500 mg Levetiracetam (Keppra Oral Solution -) 1,750 mg PO HS [facility] Last Admin: 03/16/18 22:00 Dose: 1,750 mg Loratadine (Claritin -) 10 mg PO DAILY [facility] Last Admin: 03/17/18 09:45 Dose: 10 mg Montelukast Sodium (Singulair -) 5 mg PO HS [facility] Last Admin: 03/16/18 21:08 Dose: 5 mg Multi-Ingredient Ointment (Zinc Oxide) 1 applic TP BID [facility] Last Admin: 03/16/18 21:10 Dose: 1 applic Phenobarbital (Phenobarbital Liquid -) 20 mg PEG DAILY [facility] Last Admin: 03/17/18 09:53 Dose: 20 mg Saliva Substitute (Mouthkote Solution -) 1 applic MM DAILY [facility] Last Admin: 03/17/18 10:00 Dose: 125 mg Vancomycin HCl (Vancomycin Oral Solution) 125 mg GT Q6HPO [facility] Last Admin: 03/17/18 17:17 Dose: 125 mg IMAGING - CXR: Imaging reveals scoliosis with extensive spinal support rods, weak inspiration with bilateral effusions, infiltrates and large heart. There is abdominal distention which is quite diffuse. The bones and soft tissues are intact. - CT Abdomen Pelvis: Extensive bilateral pulmonary consolidation with poor aeration of the lung ortiz. Marked air and fluid distention of the entire colon with no gross evidence of obstruction. Markedly limited study as described above. ASSESSMENT/PLAN: 23 y/o M resident of [place] with PMHx of profound developmental delay, cerebral palsy, functional quadriplegia, non-interactive at baseline, reactive airway disease, seizure disorder was admitted for Acute hypoxic respiratory failure. 1. Abnormal Thyroid function tests - TSH and Free T4 high - Endocrine consulted, appreciate rec's 2. Acute hypoxic respiratory failure - Tachypnic, Rhonchi improved however - 88% Saturation did not improve on 5L via NC at [place] as per chart - Currently on Ventimask, Sats at 99% - Continue Deep suctioning - Consider Aspiration pneumonia - Chest physio therapy - Frequent deep suctioning - Pulmonology consulted, appreciate rec's 3. Severe Sepsis - Likely due to HCAP - Previous Lactic Acid: 1.3 - Continue PO Vancomycin - ID Consulted, appreciate rec's, ABx discontinued - GI Consulted, appreciate rec's - Cultures pending - Will discontinue shane today 4. Diarrhea - Suspected C. Diff, Stool was positive for C. Diff antigen on this visit - Pending C. Diff PCR - Lactulose on home medication list; clarify from NH whether he is still getting it - Hx of stool C.Diff antigen positive but toxin negative--given oral vancomycin in 08/2017 - No loose stools since ICU Admission - Continue with Oral Vancomycin 5. Hypokalemia - Resolved. Was Hyperkalemic (5.5) - Discontinue KCL 40meq PO TID 6. HyperNatremia - Increased Free water added to tube feed 7. Hypoglycemia - Improving on tube feeds - Continue BGM 8. Ileus - Seen on CT - PEG tube already in place to suction - Abdominal distension improved - Hypoactive bowel sounds - Tolerating Tube feed - GI Consulted, appreciate rec's 9. Acute transaminitis - Elevated LFTs may be part of the sepsis syndrome - Trending down - Consider abdominal Ultrasound - Hepatitis panel pending 10. Seizure disorder - Continue Keppra 11. DVT ppx - Heparin 5000U TID SQ Dispo - Transfer to floors Visit type - Emergency Visit Emergency Visit: Yes ED Registration Date: 03/09/18 Care time: The patient presented to the Emergency Department on the above date and was hospitalized for further evaluation of their emergent condition. - New Patient This patient is new to me today: No - Critical Care Critical Care patient: Yes Total Critical Care Time (in minutes): 42 Critical Care Statement: The care of this patient involved high complexity decision making to prevent further life threatening deterioration of the patient 's condition and/or to evaluate & treat vital organ system(s) failure or risk of failure.
--- NOTE | 2018-03-17 19:45 | PN ---
Teaching Attending Note Name of Resident: Maddie Clark ATTENDING PHYSICIAN STATEMENT I saw and evaluated the patient. I reviewed the resident's note and discussed the case with the resident. I agree with the resident's findings and plan as documented with exceptions below. SUBJECTIVE: Patient seen and examined. non verbal, unable to assess for ROS. OBJECTIVE: Vital Signs Period Temp Pulse Resp BP Sys/Jay Pulse Ox Last 24 Hr 97 F-99.2 F 52-72 16-26 83-121/42-78 94-98 Intake & Output 03/14/18 03/15/18 03/16/18 03/17/18 23:59 23:59 23:59 23:59 Intake Total 2678 2210 2160 1940 Output Total 3700 1110 600 Balance -1022 1100 1560 1940 Weight 85 lb 8.63 oz 87 lb 7 oz 87 lb 6 oz 75 lb General: lying in bed comfortable Chest: decreased effort, no wheezing Abdomen:soft, positive bowel sounds, no grimacing on exam Extremities: no edema Home Medications Medication Instructions Recorded Albuterol 0.083% Nebulizer Martha 1 neb NEB QID PRN 12/03/16 [Ventolin 0.083% Nebulizer Soln -] Clobetasol Propionate/Emoll 15 gm TP DAILY 12/03/16 [Clobetasol Emollient 0.05% Crm] Diazepam 2 mg PO TID 12/03/16 Gabapentin 400 mg PO BID 12/03/16 Glycopyrrolate in Water/Pf 1 mg IV BID 12/03/16 [Glycopyrrolate 1 mg/5 ml-Water] Lacosamide [Vimpat -] 50 mg PO BID 12/03/16 Montelukast Na [Singulair -] 5 mg PO HS 12/03/16 Phenobarbital 20 mg GT DAILY 12/03/16 Scopolamine [Transderm-Scop] 1 each TD Q2D 12/03/16 Albuterol 2.5/Ipratropium 0.5 1 neb IH QID 09/04/17 [Duoneb -] Lactulose [Cephulac -] 30 ml GT DAILY 09/04/17 levETIRAcetam [Keppra Oral 1,500 mg GT DAILY 09/04/17 Solution -] levETIRAcetam [Keppra Oral 1,700 mg GT HS 09/04/17 Solution -] Lacosamide Liquid [Vimpat Liquid -] 50 mg GT BID cup MDD 100 mg 09/18/17 Vancomycin Oral Solution 125 mg PEG Q6HPO ml 09/18/17 Zinc Oxide 1 applic TP BID tube 09/18/17 Electrolyte,Oral [Pedialyte -] 45 ml PO WEEKLY 03/09/18 Fluticasone Propionate [Flovent 220 mcg IH BID 03/09/18 Diskus] Magnesium Citrate 120 ml PO WEEKLY 03/09/18 Magnesium Hydrox 2400MG/30Ml [Milk 30 ml GT BID 03/09/18 of Magnesia -] Protein Supplement [Promod] 30 ml GT DAILY 03/09/18 Sennosides [Senna] 17.2 mg PO DAILY 03/09/18 Active Medications Amino Acids (Prosource No Carb Liquid Pkt) 30 ml PO DAILY@0800 [facility] Last Admin: 03/17/18 09:53 Dose: 30 ml Bacitracin/Polymyxin B Sulfate (Polysporin Ointment -) 1 applic TP BID [facility] Last Admin: 03/16/18 21:10 Dose: 1 applic Diazepam (Valium -) 1 mg PO TID [facility] Last Admin: 03/17/18 15:01 Dose: 1 mg Gabapentin (Neurontin -) 400 mg PO BID [facility] Last Admin: 03/17/18 09:52 Dose: 400 mg Heparin Sodium (Porcine) (Heparin -) 5,000 unit SQ TID [facility] Last Admin: 03/17/18 15:04 Dose: 5,000 unit Lacosamide (Vimpat -) 50 mg PO BID [facility] Last Admin: 03/17/18 09:53 Dose: 50 mg Levetiracetam (Keppra Oral Solution -) 1,500 mg PO DAILY [facility] Last Admin: 03/17/18 09:51 Dose: 1,500 mg Levetiracetam (Keppra Oral Solution -) 1,750 mg PO [facility] Last Admin: 03/16/18 22:00 Dose: 1,750 mg Loratadine (Claritin -) 10 mg PO DAILY [facility] Last Admin: 03/17/18 09:45 Dose: 10 mg Montelukast Sodium (Singulair -) 5 mg PO HS [facility] Last Admin: 03/16/18 21:08 Dose: 5 mg Multi-Ingredient Ointment (Zinc Oxide) 1 applic TP BID [facility] Last Admin: 03/16/18 21:10 Dose: 1 applic Phenobarbital (Phenobarbital Liquid -) 20 mg PEG DAILY [facility] Last Admin: 03/17/18 09:53 Dose: 20 mg Saliva Substitute (Mouthkote Solution -) 1 applic MM DAILY [facility] Last Admin: 03/17/18 10:00 Dose: 125 mg Vancomycin HCl (Vancomycin Oral Solution) 125 mg GT Q6HPO [facility] Last Admin: 03/17/18 17:17 Dose: 125 mg Laboratory Results - last 24 hr 03/17/18 03/17/18 05:30 05:30 WBC 12.0 H RBC 3.01 L Hgb 9.6 L Hct 28.2 L MCV 93.7 MCH 31.8 MCHC 33.9 RDW 15.9 Plt Count 217 D MPV 8.9 Absolute Neuts (auto) 6.9 Neutrophils % 57.4 Lymphocytes % 33.1 Monocytes % 6.3 Eosinophils % 2.7 Basophils % 0.5 Nucleated RBC % 0 Sodium 145 Potassium 3.7 Chloride 109 H Carbon Dioxide 29 Anion Gap 7 L BUN 9 Creatinine 0.3 L Creat Clearance w eGFR > 60 Random Glucose 75 Calcium 8.2 L Phosphorus 3.7 Magnesium 1.8 Total Bilirubin 0.3 AST 67 H D ALT 86 H Alkaline Phosphatase 269 H D Total Protein 6.7 Albumin 2.8 L Microbiology 03/08/18 23:11 Blood - Peripheral Venous Blood Culture - Final NO GROWTH AFTER 5 DAYS INCUBATION 03/08/18 23:11 Blood - Peripheral Venous Blood Culture - Final NO GROWTH AFTER 5 DAYS INCUBATION 03/11/18 13:33 Nares - Left Nares MRSA Screen - Final NO MRSA ISOLATED 03/08/18 23:11 Urine - Urine - Catheterized Urine Culture - Final NO GROWTH OBTAINED 03/09/18 02:41 Stool Clostridium difficile Antigen (CHLOÉ) - Final 03/09/18 02:41 Stool Clostridium difficile Toxin Assay - Final ASSESSMENT AND PLAN: 23yo M from [place] with PMH cerebral palsy, mental retardation, functional quadriplegia was sent to the ER with acute hypoxic respiratory failure. was found to be 88% on RA which did not improve with nasal cannula and sent to the hospital. -Acute hypoxic respiratory failure, ?PNA vs aspiration -Severe sepsis due to ?C difficile colitis, vs above -Elevated LFTs, ?From sepsis vs fatty infiltration -Hyperkalemia, from supplementation, resolved -Hypernatremia, improving -Bradycardia, ?Medications, autonomic dysfunction, ?sleep apnea, from relative hypothyroidism -Abnormal Thyroid function tests -Ileus, on CT , ?Chronic, tolerating Tube feeds -Cerebral palsy -Epilepsy Plan: ID input noted, Antibiotics d/candis. PO vancomycin. Chest PT, titrate oxygen down as tolerated. frequent deep suctioning. Patient has [place] cath. Trend LFts, Abdominal US with fatty liver. Blood sugars improved. Free water flushes. Telemetry, thyroid panel noted, endocrine input noted. Seizure precautions, Continue vimpat/Keppra. Endocrine consulted, input noted, follow up repeat thyroid panel DVTPPx heparin Awaiting transfer to floors. The care of this patient involved high complexity decision making to prevent further life threatening deterioration of the patient's condition and/or to evaluate & treat vital organ system(s) failure or risk of . 40 minutes
--- NOTE | 2018-03-17 21:27 | PN ---
Physical Exam: SUBJECTIVE: Patient seen and examined today in icu. Currently on nasal cannula. Still continues to have periods of sinus bradycardia. OBJECTIVE: Vital Signs Period Temp Pulse Resp BP Sys/Jay Pulse Ox Last 24 Hr 97 F-99.2 F 52-72 12-26 83-121/42-78 94-98 GENERAL: Resting in bed. NAD. HEAD: Normal with no signs of trauma. ENT: Tongue protrusion. Possibly david on tongue. NECK: Not using accessory muscles LUNGS: Coarse rhonchi throughout HEART: -m/r/g, RRR ABDOMEN: No HSM, ND. EXTREMITIES: Extremities contracted. SKIN: moist. Laboratory Results - last 24 hr 03/17/18 03/17/18 05:30 05:30 WBC 12.0 H RBC 3.01 L Hgb 9.6 L Hct 28.2 L MCV 93.7 MCH 31.8 MCHC 33.9 RDW 15.9 Plt Count 217 D MPV 8.9 Absolute Neuts (auto) 6.9 Neutrophils % 57.4 Lymphocytes % 33.1 Monocytes % 6.3 Eosinophils % 2.7 Basophils % 0.5 Nucleated RBC % 0 Sodium 145 Potassium 3.7 Chloride 109 H Carbon Dioxide 29 Anion Gap 7 L BUN 9 Creatinine 0.3 L Creat Clearance w eGFR > 60 Random Glucose 75 Calcium 8.2 L Phosphorus 3.7 Magnesium 1.8 Total Bilirubin 0.3 AST 67 H D ALT 86 H Alkaline Phosphatase 269 H D Total Protein 6.7 Albumin 2.8 L Active Medications Generic Name Dose Route Start Last Admin Trade Name Freq PRN Reason Stop Dose Admin Amino Acids 30 ml 03/17/18 08:00 03/17/18 09:53 Prosource No Carb Liquid Pkt PO 30 ml DAILY@0800 AUNG Administration Bacitracin/Polymyxin B Sulfate 1 applic 03/16/18 22:00 03/16/18 21:10 Polysporin Ointment - TP 1 applic BID AUNG Administration Diazepam 1 mg 03/16/18 22:00 03/17/18 15:01 Valium - PO 1 mg TID AUNG Administration Gabapentin 400 mg 03/16/18 22:00 03/17/18 09:52 Neurontin - PO 400 mg BID AUNG Administration Heparin Sodium (Porcine) 5,000 unit 03/16/18 22:00 03/17/18 15:04 Heparin - SQ 5,000 unit TID AUNG Administration Lacosamide 50 mg 03/16/18 22:00 03/17/18 09:53 Vimpat - PO 50 mg BID AUNG Administration Levetiracetam 1,500 mg 03/17/18 10:00 03/17/18 09:51 Keppra Oral Solution - PO 1,500 mg DAILY AUNG Administration Levetiracetam 1,750 mg 03/16/18 22:00 03/16/18 22:00 Keppra Oral Solution - PO 1,750 mg HS AUNG Administration Loratadine 10 mg 03/17/18 10:00 03/17/18 09:45 Claritin - PO 10 mg DAILY AUNG Administration Montelukast Sodium 5 mg 03/16/18 22:00 03/16/18 21:08 Singulair - PO 5 mg HS AUNG Administration Multi-Ingredient Ointment 1 applic 03/16/18 22:00 03/16/18 21:10 Zinc Oxide TP 1 applic BID AUNG Administration Phenobarbital 20 mg 03/17/18 10:00 03/17/18 09:53 Phenobarbital Liquid - PEG 20 mg DAILY AUNG Administration Saliva Substitute 1 applic 03/17/18 10:00 03/17/18 10:00 Mouthkote Solution - MM 125 mg DAILY AUNG Administration Vancomycin HCl 125 mg 03/16/18 18:00 03/17/18 17:17 Vancomycin Oral Solution GT 125 mg Q6HPO AUNG Administration ASSESSMENT/PLAN: Pt is a 23 y/o M with pmh mr, cerebral palsy, quadriplegia, seizure disorder, constipation, as well as a perforated viscous s/p laparotomy. Endo Dr Sabillon on board. Recommendations below: Abnormal TFT: TSH of 10.5 with FT4 of 1.24. FT4 is reported as high. Will RPt TFT with TPO. If repeat TSH is > 10 will start LT4 replacement. Cardio- Sinus Bradycardia Per Cardiology: "R/o reversible causes of slow HR, e.g. hypothyroidism, hypercarbia, hypothermia , , medications (particularly AV conduction blockers, opiates, parasympathomimetics), Lyme or other infectious causes, YAKELIN, SSS, exagerrated vagal activity from altered body habitus//developmental disorder" -Continue Telemetry -Serial EKG's -Monitor Electrolytes Acute Respiratory Failure 2/2 aspiration pneumonia - Chest CT 03/09- extensive b/l pulmonary consolidation with poor aeration of lung ortiz, marked air and distension of large colon, no evidence of obstruction. Chest Xray 03/17- Lungs better aerated compared to xray 03/16. Now on Nasal Cannula BIPAP not best for this patient considering functional status - Albuterol 1 amp neb, montelukast 5 mg po -Vanco ID + for C Diff antigen. Currently on Vanco. Neuro Seizure d/o Keppra 1500 mg po Phenobarbital 20 mg peg Valium 1 mg po tid. Valium 2 mg TID changed to 1 mg TID due to bradycardia G.I Prior Xrays revealed dilation of colon, air distension. Pt less distended s/p rectal tube insertion (03/09) FEN No Fluids Monitor Electrolytes Enteral feeds DVT ppx: Heparin 5,000 U SQ Dispo Pt being transferred to TELEMETRY. Visit type - Emergency Visit Emergency Visit: Yes ED Registration Date: 03/09/18 Care time: The patient presented to the Emergency Department on the above date and was hospitalized for further evaluation of their emergent condition. - New Patient This patient is new to me today: No - Critical Care Critical Care patient: Yes Total Critical Care Time (in minutes): 35 Critical Care Statement: The care of this patient involved high complexity decision making to prevent further life threatening deterioration of the patient 's condition and/or to evaluate & treat vital organ system(s) failure or risk of failure.
[2018-03-17] MEDS: MONTELUKAST NA 5 MG TAB.CHEW PO SCH (22:00)
[2018-03-18] MEDS: VANCOMYCIN 250 MG/5 ML ORAL SOLUTION GT SCH ×4 (06:45→17:29)
[2018-03-18] MEDS: HEPARIN NA (PORCINE) 5,000 UNITS/ML 1ML VIAL SQ SCH ×3 (06:47→23:10)
[2018-03-18] MEDS: diazePAM 2 MG TABLET PO SCH ×3 (06:47→23:12)
[2018-03-18 08:02] LABS: HEMATOCRIT 29.2 % (35.4-49); MCH 32.4 pg (25.7-33.7); MCHC 34.2 g/dl (32.0-35.9); PLATELET COUNT 278 K/MM3 (134-434); RBC 3.07 M/mm3 (4.00-5.60); RDW 15.9 % (11.9-15.9); WHITE BLOOD COUNT 12.9 K/mm3 (4.0-10.0)
[2018-03-18] MEDS: AMINO ACIDS/PROTEIN HYDROLYS 30 ML LIQUID.PKT PO SCH (08:05)
[2018-03-18 08:28] LABS: ANION GAP 7 (8-16); BILIRUBIN,TOTAL 0.4 mg/dL (0.2-1.0); BLOOD UREA NITROGEN 12 mg/dL (7-18); CALCIUM 8.8 mg/dL (8.5-10.1); CHLORIDE 111 mmol/L (98-107); CO2 28 mmol/L (21-32); CREATININE 0.4 mg/dL (0.7-1.3); GLUCOSE,RANDOM 75 mg/dL (74-106); PHOSPHOROUS 4.7 mg/dL (2.5-4.9); SGPT/ALT 89 U/L (12-78); SODIUM 146 mmol/L (136-145)
[2018-03-18] MEDS ORDERED: PT OWN MED DRAWER 7, Y5N ONE ×3 (08:31→21:37)
[2018-03-18 08:38] LABS: ALK PHOS 275 U/L (45-117); TOT PROT 7.4 g/dl (6.4-8.2)
[2018-03-18 08:43] LABS: MAGNESIUM 1.9 mg/dL (1.8-2.4); SGOT/AST 86 U/L (15-37)
[2018-03-18] MEDS ORDERED: diazePAM 2 MG TABLET PO SCH (08:45)
[2018-03-18] MEDS: LORATADINE 10 MG TABLET PO SCH (09:12)
[2018-03-18] MEDS: PHENobarbital 20 MG/5 ML UNIT-DOSE CUP PEG SCH (09:12)
[2018-03-18] MEDS: LACOSAMIDE 50 MG TABLET PO SCH ×2 (09:12→23:12)
[2018-03-18] MEDS: GABAPENTIN 400 MG CAPSULE (FP) PO SCH ×2 (09:12→23:11)
[2018-03-18] MEDS: levETIRAcetam 500 MG/5 ML ORAL SOLUTION (UNIT-DOSE CUPS) PO SCH ×2 (09:12→23:11)
[2018-03-18] MEDS ORDERED: diazePAM 2 MG TABLET PO ONE (09:30)
[2018-03-18] MEDS: BACITRACIN/POLYMYXIN B SULFATE 15 GM TUBE TP SCH ×2 (09:39→23:11)
[2018-03-18] MEDS: ZINC OXIDE 20% TOPICAL OINTMENT 30 GM TUBE TP SCH ×2 (09:40→23:12)
--- NOTE | 2018-03-18 09:44 | PN ---
Progress Note (short form) - Note Progress Note: Condition unchanged Vital Signs Period Temp Pulse Resp BP Sys/Jay Pulse Ox Last 24 Hr 97.9 F-98.8 F 44-68 12-26 83-116/37-81 94-98 Neck: supple HEENT: Conjunctiva clear Lungs: Few rhonchi CVS: s1s2 Abd: Benign Ext: No edema CMP Sodium 146 mmol/L (136-145) H 03/18/18 07:15 Potassium 4.0 mmol/L (3.5-5.1) 03/18/18 07:15 Chloride 111 mmol/L (98-107) H 03/18/18 07:15 Carbon Dioxide 28 mmol/L (21-32) 03/18/18 07:15 Anion Gap 7 (8-16) L 03/18/18 07:15 BUN 12 mg/dL (7-18) 03/18/18 07:15 Creatinine 0.4 mg/dL (0.7-1.3) L 03/18/18 07:15 Creat Clearance w eGFR > 60 (>60) 03/18/18 07:15 POC Glucometer 131.55437 UNITS (80-120) 03/10/18 11:13 Random Glucose 75 mg/dL (74-106) 03/18/18 07:15 Lactic Acid 1.3 mmol/L (0.0-2.0) 03/08/18 23:11 Calcium 8.8 mg/dL (8.5-10.1) 03/18/18 07:15 Phosphorus 4.7 mg/dL (2.5-4.9) D 03/18/18 07:15 Magnesium 1.9 mg/dL (1.8-2.4) 03/18/18 07:15 Total Bilirubin 0.4 mg/dL (0.2-1.0) 03/18/18 07:15 AST 86 U/L (15-37) H D 03/18/18 07:15 ALT 89 U/L (12-78) H 03/18/18 07:15 Alkaline Phosphatase 275 U/L (45-117) H 03/18/18 07:15 Creatine Kinase 317 IU/L (39-308) H 03/08/18 23:11 Creatine Kinase Index 1.4 % (0.0-5.0) 03/08/18 23:11 CK-MB (CK-2) 4.34 ng/mL (0.5-3.6) H 03/08/18 23:11 Troponin I < 0.02 ng/ml (0.00-0.05) 03/08/18 23:11 C-Reactive Protein 14.0 MG/DL (0.00-0.3) H 03/09/18 13:40 Total Protein 7.4 g/dl (6.4-8.2) 03/18/18 07:15 Albumin 3.0 g/dl (3.4-5.0) L 03/18/18 07:15 TSH 11.40 uIU/ml (0.358-3.74) H D 03/18/18 07:15 Free T4 1.24 ng/dl (0.76-1.16) H 03/16/18 05:30 Total T3 135.00 ng/dl (71-180) 03/16/18 17:30 Current Medications Generic Name Dose Route Start Last Admin Trade Name Lazaro PRN Reason Stop Dose Admin Amino Acids 30 ml 03/17/18 08:00 03/18/18 08:05 Prosource No Carb Liquid Pkt PO 30 ml DAILY@0800 AUNG Administration Bacitracin/Polymyxin B Sulfate 1 applic 03/16/18 22:00 03/18/18 09:39 Polysporin Ointment - TP 1 applic BID AUNG Administration Diazepam 2 mg 03/18/18 14:00 Valium - PO TID AUNG Gabapentin 400 mg 03/16/18 22:00 03/18/18 09:12 Neurontin - PO 400 mg BID AUNG Administration Heparin Sodium (Porcine) 5,000 unit 03/16/18 22:00 03/18/18 06:47 Heparin - SQ 5,000 unit TID AUNG Administration Lacosamide 50 mg 03/16/18 22:00 03/18/18 09:12 Vimpat - PO 50 mg BID AUNG Administration Levetiracetam 1,500 mg 03/17/18 10:00 03/18/18 09:12 Keppra Oral Solution - PO 1,500 mg DAILY AUNG Administration Levetiracetam 1,750 mg 03/16/18 22:00 03/17/18 22:14 Keppra Oral Solution - PO 1,750 mg HS AUNG Administration Loratadine 10 mg 03/17/18 10:00 03/18/18 09:12 Claritin - PO 10 mg DAILY AUNG Administration Montelukast Sodium 5 mg 03/16/18 22:00 03/17/18 22:00 Singulair - PO 5 mg HS AUNG Administration Multi-Ingredient Ointment 1 applic 03/16/18 22:00 03/18/18 09:40 Zinc Oxide TP 1 applic BID AUNG Administration Phenobarbital 20 mg 03/17/18 10:00 03/18/18 09:12 Phenobarbital Liquid - PEG 20 mg DAILY AUNG Administration Saliva Substitute 1 applic 03/17/18 10:00 03/17/18 10:00 Mouthkote Solution - MM 125 mg DAILY AUNG Administration Vancomycin HCl 125 mg 03/16/18 18:00 03/18/18 06:45 Vancomycin Oral Solution GT 125 mg Q6HPO AUNG Administration AP Hypoxic Respiratory Failure Pneumonia likely Aspiration Severe Sepsis Elevated LFTs likely ischemic injury Abdominal Distention/Constipation Seizure Disorder Mental Retardation Episode bradycardia: likely multifactorial: (?) Medication (?) Autonomic dysfunction (?) Sleep apnea epsis Hypothyroidism: TSH of 11.4 and 10.5 consistent with diagnosis of hypothyroidism. I believe FT4 of 1.24 is reported as high because of issue with calibration of the test. Result of FT4 by dialysis pending. Start LT4 25mcg QD RPt TFT in 4 to 6 weeks and adjust dose as necessary F/U rest of TFT values
[2018-03-18] MEDS: LYTES/YERBA SANTA 240 ML BOTTLE MM SCH (10:00)
--- NOTE | 2018-03-18 12:48 | PN ---
Teaching Attending Note Name of Resident: Eric Gonzalez ATTENDING PHYSICIAN STATEMENT I saw and evaluated the patient. I reviewed the resident's note and discussed the case with the resident. I agree with the resident's findings and plan as documented. SUBJECTIVE: Patient seen and examined in the ICU. Saturating well on nasal cannula. No fevers recorded. Lowest HR recorded in the 50's and 40's while asleep. OBJECTIVE: Intake & Output 03/15/18 03/16/18 03/17/18 03/18/18 23:59 23:59 23:59 23:59 Intake Total 2210 2160 1940 Output Total 1110 600 Balance 1100 1560 1940 Weight 87 lb 7 oz 87 lb 6 oz 75 lb 75 lb 2.842 oz Last Vital Signs Temp Pulse Resp BP Pulse Ox 97.8 F 66 18 103/69 98 03/18/18 12:00 03/18/18 12:00 03/18/18 12:00 03/18/18 12:00 03/18/18 08:03 Active Medications Amino Acids (Prosource No Carb Liquid Pkt) 30 ml PO DAILY@0800 [facility] Last Admin: 03/18/18 08:05 Dose: 30 ml Bacitracin/Polymyxin B Sulfate (Polysporin Ointment -) 1 applic TP BID [facility] Last Admin: 03/18/18 09:39 Dose: 1 applic Diazepam (Valium -) 2 mg PO TID [facility] Gabapentin (Neurontin -) 400 mg PO BID [facility] Last Admin: 03/18/18 09:12 Dose: 400 mg Heparin Sodium (Porcine) (Heparin -) 5,000 unit SQ TID [facility] Last Admin: 03/18/18 06:47 Dose: 5,000 unit Lacosamide (Vimpat -) 50 mg PO BID [facility] Last Admin: 03/18/18 09:12 Dose: 50 mg Levetiracetam (Keppra Oral Solution -) 1,500 mg PO DAILY [facility] Last Admin: 03/18/18 09:12 Dose: 1,500 mg Levetiracetam (Keppra Oral Solution -) 1,750 mg PO HS [facility] Last Admin: 03/17/18 22:14 Dose: 1,750 mg Loratadine (Claritin -) 10 mg PO DAILY [facility] Last Admin: 03/18/18 09:12 Dose: 10 mg Montelukast Sodium (Singulair -) 5 mg PO HS [facility] Last Admin: 03/17/18 22:00 Dose: 5 mg Multi-Ingredient Ointment (Zinc Oxide) 1 applic TP BID [facility] Last Admin: 03/18/18 09:40 Dose: 1 applic Phenobarbital (Phenobarbital Liquid -) 20 mg PEG DAILY [facility] Last Admin: 03/18/18 09:12 Dose: 20 mg Saliva Substitute (Mouthkote Solution -) 1 applic MM DAILY [facility] Last Admin: 03/17/18 10:00 Dose: 125 mg Vancomycin HCl (Vancomycin Oral Solution) 125 mg GT Q6HPO [facility] Last Admin: 03/18/18 12:46 Dose: 125 mg Gen: NAD on NC O2 Heart: RRR Lung: few scattered rhonchi Abd: soft, nontender Ext: contracted, no edema Laboratory Results - last 24 hr 03/16/18 03/18/18 03/18/18 17:30 07:15 07:15 WBC 12.9 H RBC 3.07 L Hgb 10.0 L Hct 29.2 L MCV 95.0 MCH 32.4 MCHC 34.2 RDW 15.9 Plt Count 278 D MPV 9.0 Sodium 146 H Potassium 4.0 Chloride 111 H Carbon Dioxide 28 Anion Gap 7 L BUN 12 Creatinine 0.4 L Creat Clearance w eGFR > 60 Random Glucose 75 Calcium 8.8 Phosphorus 4.7 D Magnesium 1.9 Total Bilirubin 0.4 AST 86 H D ALT 89 H Alkaline Phosphatase 275 H Total Protein 7.4 Albumin 3.0 L TSH 11.40 H D Total T3 135.00 ASSESSMENT AND PLAN: Acute Hypoxic Respiratory Failure improving Pneumonia likely Aspiration Severe Sepsis resolving Elevated LFTs likely ischemic injury Abdominal Distention/Constipation Seizure Disorder Mental Retardation - completed antibiotics - aspiration precautions - O2 to keep SpO2 >90% - continue antiepileptics - DVT prophylaxis - D/C planning Dr Young
--- NOTE | 2018-03-18 13:34 | PN ---
Teaching Attending Note Name of Resident: Maddie Clark ATTENDING PHYSICIAN STATEMENT I saw and evaluated the patient. I reviewed the resident's note and discussed the case with the resident. I agree with the resident's findings and plan as documented with exceptions below. SUBJECTIVE: patient seen and examined. Non verbal, unable to assess for ROS OBJECTIVE: Vital Signs Period Temp Pulse Resp BP Sys/Jay Pulse Ox Last 24 Hr 97.8 F-98.6 F 44-66 12-24 83-116/37-81 97-98 Intake & Output 03/15/18 03/16/18 03/17/18 03/18/18 23:59 23:59 23:59 23:59 Intake Total 2210 2160 1940 480 Output Total 1110 600 250 Balance 1100 1560 1940 230 Weight 87 lb 7 oz 87 lb 6 oz 75 lb 75 lb 2.842 oz General: lying in bed in no acute distress, eyes open Chest; decreased effort Abdomen:soft, NT, no grimacing on deep palpation, positive bowel sounds Extremities: contractures Home Medications Medication Instructions Recorded Albuterol 0.083% Nebulizer Martha 1 neb NEB QID PRN 12/03/16 [Ventolin 0.083% Nebulizer Soln -] Clobetasol Propionate/Emoll 15 gm TP DAILY 12/03/16 [Clobetasol Emollient 0.05% Crm] Diazepam 2 mg PO TID 12/03/16 Gabapentin 400 mg PO BID 12/03/16 Glycopyrrolate in Water/Pf 1 mg IV BID 12/03/16 [Glycopyrrolate 1 mg/5 ml-Water] Lacosamide [Vimpat -] 50 mg PO BID 12/03/16 Montelukast Na [Singulair -] 5 mg PO HS 12/03/16 Phenobarbital 20 mg GT DAILY 12/03/16 Scopolamine [Transderm-Scop] 1 each TD Q2D 12/03/16 Albuterol 2.5/Ipratropium 0.5 1 neb IH QID 09/04/17 [Duoneb -] Lactulose [Cephulac -] 30 ml GT DAILY 09/04/17 levETIRAcetam [Keppra Oral 1,500 mg GT DAILY 09/04/17 Solution -] levETIRAcetam [Keppra Oral 1,700 mg GT HS 09/04/17 Solution -] Lacosamide Liquid [Vimpat Liquid -] 50 mg GT BID cup MDD 100 mg 09/18/17 Vancomycin Oral Solution 125 mg PEG Q6HPO ml 09/18/17 Zinc Oxide 1 applic TP BID tube 09/18/17 Electrolyte,Oral [Pedialyte -] 45 ml PO WEEKLY 03/09/18 Fluticasone Propionate [Flovent 220 mcg IH BID 03/09/18 Diskus] Magnesium Citrate 120 ml PO WEEKLY 03/09/18 Magnesium Hydrox 2400MG/30Ml [Milk 30 ml GT BID 03/09/18 of Magnesia -] Protein Supplement [Promod] 30 ml GT DAILY 03/09/18 Sennosides [Senna] 17.2 mg PO DAILY 03/09/18 Active Medications Amino Acids (Prosource No Carb Liquid Pkt) 30 ml PO DAILY@0800 [facility] Last Admin: 03/18/18 08:05 Dose: 30 ml Bacitracin/Polymyxin B Sulfate (Polysporin Ointment -) 1 applic TP BID [facility] Last Admin: 03/18/18 09:39 Dose: 1 applic Diazepam (Valium -) 2 mg PO TID [facility] Gabapentin (Neurontin -) 400 mg PO BID [facility] Last Admin: 03/18/18 09:12 Dose: 400 mg Heparin Sodium (Porcine) (Heparin -) 5,000 unit SQ TID [facility] Last Admin: 03/18/18 06:47 Dose: 5,000 unit Lacosamide (Vimpat -) 50 mg PO BID [facility] Last Admin: 03/18/18 09:12 Dose: 50 mg Levetiracetam (Keppra Oral Solution -) 1,500 mg PO DAILY [facility] Last Admin: 03/18/18 09:12 Dose: 1,500 mg Levetiracetam (Keppra Oral Solution -) 1,750 mg PO [facility] Last Admin: 03/17/18 22:14 Dose: 1,750 mg Levothyroxine Sodium (Synthroid -) 25 mcg PO DAILY@0700 [facility] Loratadine (Claritin -) 10 mg PO DAILY [facility] Last Admin: 03/18/18 09:12 Dose: 10 mg Montelukast Sodium (Singulair -) 5 mg PO [facility] Last Admin: 03/17/18 22:00 Dose: 5 mg Multi-Ingredient Ointment (Zinc Oxide) 1 applic TP BID [facility] Last Admin: 03/18/18 09:40 Dose: 1 applic Phenobarbital (Phenobarbital Liquid -) 20 mg PEG DAILY [facility] Last Admin: 03/18/18 09:12 Dose: 20 mg Saliva Substitute (Mouthkote Solution -) 1 applic MM DAILY [facility] Last Admin: 03/18/18 10:00 Dose: 1 applic Vancomycin HCl (Vancomycin Oral Solution) 125 mg GT Q6HPO [facility] Last Admin: 03/18/18 12:46 Dose: 125 mg Laboratory Results - last 24 hr 03/16/18 03/18/18 03/18/18 17:30 07:15 07:15 WBC 12.9 H RBC 3.07 L Hgb 10.0 L Hct 29.2 L MCV 95.0 MCH 32.4 MCHC 34.2 RDW 15.9 Plt Count 278 D MPV 9.0 Sodium 146 H Potassium 4.0 Chloride 111 H Carbon Dioxide 28 Anion Gap 7 L BUN 12 Creatinine 0.4 L Creat Clearance w eGFR > 60 Random Glucose 75 Calcium 8.8 Phosphorus 4.7 D Magnesium 1.9 Total Bilirubin 0.4 AST 86 H D ALT 89 H Alkaline Phosphatase 275 H Total Protein 7.4 Albumin 3.0 L TSH 11.40 H D Total T3 135.00 ASSESSMENT AND PLAN: 23yo M from [place] with PMH cerebral palsy, mental retardation, functional quadriplegia was sent to the ER with acute hypoxic respiratory failure. was found to be 88% on RA which did not improve with nasal cannula and sent to the hospital. -Acute hypoxic respiratory failure, ?PNA vs aspiration -Severe sepsis due to ?C difficile colitis, vs above -Elevated LFTs, ?From sepsis vs fatty infiltration -Hyperkalemia, from supplementation, resolved -Hypernatremia, improving -Bradycardia, ?Medications, autonomic dysfunction, ?sleep apnea, from relative hypothyroidism -Abnormal Thyroid function tests -Ileus, on CT , ?Chronic, tolerating Tube feeds -Cerebral palsy -Epilepsy Plan: ID input noted, Antibiotics d/candis. PO vancomycinx 10-14 days as discussed with Dr. Broderick Chest PT, titrate oxygen down as tolerated. frequent deep suctioning. Patient has [place] cath. Trend LFts, Abdominal US with fatty liver. Blood sugars improved. Free water flushes. Telemetry, thyroid panel noted, endocrine input noted. Started on levothyroxine Seizure precautions, Continue vimpat/Keppra. Endocrine consulted, input noted, follow up repeat thyroid panel DVTPPx heparin Dispo to [facility] pending clinical improvement.
--- NOTE | 2018-03-18 15:59 | PN ---
Physical Exam: SUBJECTIVE: Patient seen and examined today in icu. Pt resting in bed. Not using accessory muscles to breath. On Nasal canula. OBJECTIVE: Vital Signs Period Temp Pulse Resp BP Sys/Jay Pulse Ox Last 24 Hr 97.8 F-99.4 F 44-66 12-24 83-103/37-81 92-98 GENERAL: Resting in bed. NAD. HEAD: Normal with no signs of trauma. ENT: Tongue protrusion. Possibly david on tongue. NECK: Not using accessory muscles LUNGS: Dec BS throughout HEART: -m/r/g, RRR ABDOMEN: No HSM, ND. EXTREMITIES: Extremities contracted. SKIN: moist. Laboratory Results - last 24 hr 03/16/18 03/18/18 03/18/18 17:30 07:15 07:15 WBC 12.9 H RBC 3.07 L Hgb 10.0 L Hct 29.2 L MCV 95.0 MCH 32.4 MCHC 34.2 RDW 15.9 Plt Count 278 D MPV 9.0 Sodium 146 H Potassium 4.0 Chloride 111 H Carbon Dioxide 28 Anion Gap 7 L BUN 12 Creatinine 0.4 L Creat Clearance w eGFR > 60 Random Glucose 75 Calcium 8.8 Phosphorus 4.7 D Magnesium 1.9 Total Bilirubin 0.4 AST 86 H D ALT 89 H Alkaline Phosphatase 275 H Total Protein 7.4 Albumin 3.0 L TSH 11.40 H D Total T3 135.00 Active Medications Generic Name Dose Route Start Last Admin Trade Name Freq PRN Reason Stop Dose Admin Amino Acids 30 ml 03/17/18 08:00 03/18/18 08:05 Prosource No Carb Liquid Pkt PO 30 ml DAILY@0800 [facility] Administration Bacitracin/Polymyxin B Sulfate 1 applic 03/16/18 22:00 03/18/18 09:39 Polysporin Ointment - TP 1 applic BID AUNG Administration Diazepam 2 mg 03/18/18 14:00 03/18/18 14:05 Valium - PO 2 mg TID [facility]UNG Administration Gabapentin 400 mg 03/16/18 22:00 03/18/18 09:12 Neurontin - PO 400 mg BID [facility]UNG Administration Heparin Sodium (Porcine) 5,000 unit 03/16/18 22:00 03/18/18 14:06 Heparin - SQ 5,000 unit TID [facility]UNG Administration Lacosamide 50 mg 03/16/18 22:00 03/18/18 09:12 Vimpat - PO 50 mg BID [facility]UNG Administration Levetiracetam 1,500 mg 03/17/18 10:00 03/18/18 09:12 Keppra Oral Solution - PO 1,500 mg DAILY [facility]UNG Administration Levetiracetam 1,750 mg 03/16/18 22:00 03/17/18 22:14 Keppra Oral Solution - PO 1,750 mg HS [facility]UNG Administration Levothyroxine Sodium 25 mcg 03/19/18 07:00 Synthroid - PO DAILY@0700 [facility] Loratadine 10 mg 03/17/18 10:00 03/18/18 09:12 Claritin - PO 10 mg DAILY [facility] Administration Montelukast Sodium 5 mg 03/16/18 22:00 03/17/18 22:00 Singulair - PO 5 mg HS [facility]UNG Administration Multi-Ingredient Ointment 1 applic 03/16/18 22:00 03/18/18 09:40 Zinc Oxide TP 1 applic BID [facility] Administration Phenobarbital 20 mg 03/17/18 10:00 03/18/18 09:12 Phenobarbital Liquid - PEG 20 mg DAILY [facility] Administration Saliva Substitute 1 applic 03/17/18 10:00 03/18/18 10:00 Mouthkote Solution - MM 1 applic DAILY [facility] Administration Vancomycin HCl 125 mg 03/16/18 18:00 03/18/18 12:46 Vancomycin Oral Solution GT 125 mg Q6HPO [facility]UNG Administration ASSESSMENT/PLAN: Pt is a 23 y/o M with pmh mr, cerebral palsy, quadriplegia, seizure disorder, constipation, as well as a perforated viscous s/p laparotomy. Endo Dr Sabillon on board. Recommendations below: Hypothyroidism: TSH of 11.4 and 10.5 consistent with diagnosis of hypothyroidism. Pt started on Levothyroxine 25 mcg po daily RPt TFT in 4 to 6 weeks and adjust dose as necessary Cardio- Sinus Bradycardia Per Cardiology: "R/o reversible causes of slow HR, e.g. hypothyroidism, hypercarbia, hypothermia , , medications (particularly AV conduction blockers, opiates, parasympathomimetics), Lyme or other infectious causes, YAKELIN, SSS, exagerrated vagal activity from altered body habitus//developmental disorder" -Continue Telemetry -Serial EKG's -Monitor Electrolytes Acute Respiratory Failure 2/2 aspiration pneumonia - Chest CT 03/09- extensive b/l pulmonary consolidation with poor aeration of lung ortiz, marked air and distension of large colon, no evidence of obstruction. Chest Xray 03/17- Lungs better aerated compared to xray 03/16. Now on Nasal Cannula BIPAP not best for this patient considering functional status - Albuterol 1 amp neb, montelukast 5 mg po ID + for C Diff antigen. Currently on Vanco. Neuro Seizure d/o Keppra 1500 mg po Phenobarbital 20 mg peg Valium 1 mg po tid. G.I Prior Xrays revealed dilation of colon, air distension. Pt less distended s/p rectal tube insertion (03/09) FEN No Fluids Monitor Electrolytes Enteral feeds DVT ppx: Heparin 5,000 U SQ Dispo Pt being transferred to TELEMETRY. Visit type - Emergency Visit Emergency Visit: Yes ED Registration Date: 03/09/18 Care time: The patient presented to the Emergency Department on the above date and was hospitalized for further evaluation of their emergent condition. - New Patient This patient is new to me today: No - Critical Care Critical Care patient: Yes Total Critical Care Time (in minutes): 36 Critical Care Statement: The care of this patient involved high complexity decision making to prevent further life threatening deterioration of the patient 's condition and/or to evaluate & treat vital organ system(s) failure or risk of failure.
--- NOTE | 2018-03-18 19:34 | PN ---
Physical Exam: SUBJECTIVE: Patient seen and examined resting comfortably in ICU. Had one small , loose BM over night. No other acute events over night. OBJECTIVE: Vital Signs Period Temp Pulse Resp BP Sys/Jay Pulse Ox Last 24 Hr 97.8 F-99.4 F 44-66 12-21 87-103/37-81 92-98 GENERAL: Nonverbal, No acute distress LUNGS: Rhonchi improved, less tachypnea, on 5L Nasal canula HEART: Regular rate and rhythm, S1, S2 without murmur, rub or gallop. ABDOMEN: Soft, Distended, Hypoactive bowel sounds, PEG tube present in LUQ : [place] catheter present draining clear yellow urine EXTREMITIES: Upper extremities Contracted B/L Laboratory Results - last 24 hr 03/16/18 03/18/18 03/18/18 17:30 07:15 07:15 WBC 12.9 H RBC 3.07 L Hgb 10.0 L Hct 29.2 L MCV 95.0 MCH 32.4 MCHC 34.2 RDW 15.9 Plt Count 278 D MPV 9.0 Sodium 146 H Potassium 4.0 Chloride 111 H Carbon Dioxide 28 Anion Gap 7 L BUN 12 Creatinine 0.4 L Creat Clearance w eGFR > 60 Random Glucose 75 Calcium 8.8 Phosphorus 4.7 D Magnesium 1.9 Total Bilirubin 0.4 AST 86 H D ALT 89 H Alkaline Phosphatase 275 H Total Protein 7.4 Albumin 3.0 L TSH 11.40 H D Total T3 135.00 Microbiology 03/08/18 23:11 Blood - Peripheral Venous Blood Culture - Final NO GROWTH AFTER 5 DAYS INCUBATION 03/08/18 23:11 Blood - Peripheral Venous Blood Culture - Final NO GROWTH AFTER 5 DAYS INCUBATION 03/11/18 13:33 Nares - Left Nares MRSA Screen - Final NO MRSA ISOLATED 03/08/18 23:11 Urine - Urine - Catheterized Urine Culture - Final NO GROWTH OBTAINED 03/09/18 02:41 Stool Clostridium difficile Antigen (CHLOÉ) - Final 03/09/18 02:41 Stool Clostridium difficile Toxin Assay - Final Active Medications Amino Acids (Prosource No Carb Liquid Pkt) 30 ml PO DAILY@0800 [facility] Last Admin: 03/18/18 08:05 Dose: 30 ml Bacitracin/Polymyxin B Sulfate (Polysporin Ointment -) 1 applic TP BID [facility] Last Admin: 03/18/18 09:39 Dose: 1 applic Diazepam (Valium -) 2 mg PO TID [facility] Last Admin: 03/18/18 14:05 Dose: 2 mg Gabapentin (Neurontin -) 400 mg PO BID [facility] Last Admin: 03/18/18 09:12 Dose: 400 mg Heparin Sodium (Porcine) (Heparin -) 5,000 unit SQ TID [facility] Last Admin: 03/18/18 14:06 Dose: 5,000 unit Lacosamide (Vimpat -) 50 mg PO BID [facility] Last Admin: 03/18/18 09:12 Dose: 50 mg Levetiracetam (Keppra Oral Solution -) 1,500 mg PO DAILY [facility] Last Admin: 03/18/18 09:12 Dose: 1,500 mg Levetiracetam (Keppra Oral Solution -) 1,750 mg PO HS [facility] Last Admin: 03/17/18 22:14 Dose: 1,750 mg Levothyroxine Sodium (Synthroid -) 25 mcg PO DAILY@0700 [facility] Loratadine (Claritin -) 10 mg PO DAILY [facility] Last Admin: 03/18/18 09:12 Dose: 10 mg Montelukast Sodium (Singulair -) 5 mg PO HS [facility] Last Admin: 03/17/18 22:00 Dose: 5 mg Multi-Ingredient Ointment (Zinc Oxide) 1 applic TP BID [facility] Last Admin: 03/18/18 09:40 Dose: 1 applic Phenobarbital (Phenobarbital Liquid -) 20 mg PEG DAILY [facility] Last Admin: 03/18/18 09:12 Dose: 20 mg Saliva Substitute (Mouthkote Solution -) 1 applic MM DAILY [facility] Last Admin: 03/18/18 10:00 Dose: 1 applic Vancomycin HCl (Vancomycin Oral Solution) 125 mg GT Q6HPO [facility] Last Admin: 03/18/18 17:29 Dose: 125 mg IMAGING - CXR: Imaging reveals scoliosis with extensive spinal support rods, weak inspiration with bilateral effusions, infiltrates and large heart. There is abdominal distention which is quite diffuse. The bones and soft tissues are intact. - CT Abdomen Pelvis: Extensive bilateral pulmonary consolidation with poor aeration of the lung ortiz. Marked air and fluid distention of the entire colon with no gross evidence of obstruction. Markedly limited study as described above. ASSESSMENT/PLAN: 23 y/o M resident of [place] with PMHx of profound developmental delay, cerebral palsy, functional quadriplegia, non-interactive at baseline, reactive airway disease, seizure disorder was admitted for Acute hypoxic respiratory failure. 1. Abnormal Thyroid function tests - TSH and Free T4 high - Endocrine consulted, appreciate rec's - Pending Thyroid Peroxidase Antibody - Starting Synthroid 25 mcg PO DAILY - Repeat Thyroid function tests in 4 to 6 weeks to adjust dose as necessary 2. Acute hypoxic respiratory failure - Tachypnic, Rhonchi improved however - 88% Saturation did not improve on 5L via NC at [place] as per chart - Currently on 5L Nasal canulla, Sats > 93% - Continue Deep suctioning - Consider Aspiration pneumonia - Chest physio therapy - Frequent deep suctioning - Pulmonology consulted, appreciate rec's 3. Severe Sepsis - Likely due to HCAP - Previous Lactic Acid: 1.3 - ID Consulted, appreciate rec's, ABx discontinued but continue PO Vanco for 1 week after discharge - GI Consulted, appreciate rec's - Cultures negative 4. Diarrhea - Suspected C. Diff, Stool was positive for C. Diff antigen on this visit - Pending C. Diff PCR - Lactulose on home medication list; clarify from NH whether he is still getting it - Hx of stool C.Diff antigen positive but toxin negative--given oral vancomycin in 08/2017 - Continue with Oral Vancomycin 5. Hypokalemia - Resolved. Was Hyperkalemic (5.5) - Discontinue KCL 40meq PO TID 6. HyperNatremia - Increased Free water added to tube feed 7. Hypoglycemia - Improving on tube feeds - Continue BGM 8. Ileus - Seen on CT - PEG tube already in place to suction - Abdominal distension improved - Hypoactive bowel sounds - Tolerating Tube feed - GI Consulted, appreciate rec's 9. Acute transaminitis - Elevated LFTs may be part of the sepsis syndrome - Trending down - Consider abdominal Ultrasound - Hepatitis panel pending 10. Seizure disorder - Continue Keppra 11. DVT ppx - Heparin 5000U TID SQ Dispo - likely D/C Tmrw to [place] Visit type - Emergency Visit Emergency Visit: Yes ED Registration Date: 03/09/18 Care time: The patient presented to the Emergency Department on the above date and was hospitalized for further evaluation of their emergent condition. - New Patient This patient is new to me today: No - Critical Care Critical Care patient: Yes Total Critical Care Time (in minutes): 35 Critical Care Statement: The care of this patient involved high complexity decision making to prevent further life threatening deterioration of the patient 's condition and/or to evaluate & treat vital organ system(s) failure or risk of failure.
[2018-03-18] MEDS: MONTELUKAST NA 5 MG TAB.CHEW PO SCH (23:12)
[2018-03-19] MEDS: VANCOMYCIN 250 MG/5 ML ORAL SOLUTION GT SCH ×4 (00:05→18:05)
[2018-03-19] MEDS: diazePAM 2 MG TABLET PO SCH ×3 (06:42→22:05)
[2018-03-19] MEDS: HEPARIN NA (PORCINE) 5,000 UNITS/ML 1ML VIAL SQ SCH ×3 (06:42→22:07)
[2018-03-19] MEDS: LEVOTHYROXINE NA 25 MCG TABLET (FP) PO SCH (06:42)
--- NOTE | 2018-03-19 08:58 | PN ---
Progress Note, Physician Chief Complaint: Pt contracted; unable to communicate History of Present Illness: This is a 23 YO black man with h/o profound MR/DD, cerebral palsy, spastic quadriplegia, non-interactive at baseline, reactive airway disease, seizure disorder, constipation, and perforated viscous s/p laparotomy;scoliosis, /p spinal surgery ([place] rods), who was BIBA from [place] for desaturations on room air. The house [employer]WORK ASSOC[employer]ATE at [place] reports that the patient was desaturating to 88% on RA, improved to only 89-90% on 5 LPM O2, crackles on auscultation with L>R. Vitals reported at [place] are temp 95, SaO2 89%, BP 97/63, RR 24. His mother's phone # is [phone]. - Current Medication List Current Medications: Active Medications Amino Acids (Prosource No Carb Liquid Pkt) 30 ml PO DAILY@0800 [facility] Last Admin: 03/18/18 08:05 Dose: 30 ml Bacitracin/Polymyxin B Sulfate (Polysporin Ointment -) 1 applic TP BID [facility] Last Admin: 03/18/18 23:11 Dose: 1 applic Diazepam (Valium -) 2 mg PO TID [facility] Last Admin: 03/19/18 06:42 Dose: 2 mg Gabapentin (Neurontin -) 400 mg PO BID [facility] Last Admin: 03/18/18 23:11 Dose: 400 mg Heparin Sodium (Porcine) (Heparin -) 5,000 unit SQ TID [facility] Last Admin: 03/19/18 06:42 Dose: 5,000 unit Lacosamide (Vimpat -) 50 mg PO BID [facility] Last Admin: 03/18/18 23:12 Dose: 50 mg Levetiracetam (Keppra Oral Solution -) 1,500 mg PO DAILY [facility] Last Admin: 03/18/18 09:12 Dose: 1,500 mg Levetiracetam (Keppra Oral Solution -) 1,750 mg PO HS [facility] Last Admin: 03/18/18 23:11 Dose: 1,750 mg Levothyroxine Sodium (Synthroid -) 25 mcg PO DAILY@0700 [facility] Last Admin: 03/19/18 06:42 Dose: 25 mcg Loratadine (Claritin -) 10 mg PO DAILY [facility] Last Admin: 03/18/18 09:12 Dose: 10 mg Montelukast Sodium (Singulair -) 5 mg PO HS [facility] Last Admin: 03/18/18 23:12 Dose: 5 mg Multi-Ingredient Ointment (Zinc Oxide) 1 applic TP BID [facility] Last Admin: 03/18/18 23:12 Dose: 1 applic Phenobarbital (Phenobarbital Liquid -) 20 mg PEG DAILY [facility] Last Admin: 03/18/18 09:12 Dose: 20 mg Saliva Substitute (Mouthk[place] Solution -) 1 applic MM DAILY [facility] Last Admin: 03/18/18 10:00 Dose: 1 applic Vancomycin HCl (Vancomycin Oral Solution) 125 mg GT Q6HPO [facility] Last Admin: 03/19/18 06:42 Dose: 125 mg - Objective Vital Signs: Vital Signs Temperature 99.8 F H 03/19/18 06:11 Pulse Rate 67 03/19/18 06:11 Respiratory Rate 18 03/19/18 06:11 Blood Pressure 108/61 03/19/18 06:11 O2 Sat by Pulse Oximetry (%) 93 L 03/18/18 21:00 Constitutional: Yes: Thin, Other (small, distorted body habitus) Eyes: Yes: Conjunctiva Clear HENT: Yes: Other Neck: Yes: Decreased ROM Cardiovascular: Yes: Bradycardia, S1 Respiratory: Yes: Diminished Gastrointestinal: Yes: Soft Genitourinary: No: Anuria Musculoskeletal: Yes: Muscle Weakness, Other Extremities: Yes: Cool, Shortened Edema: No Peripheral Pulses WNL: No Peripheral Pulses: Left Doralis Pedis: 1+, Right Dorsalis Pedis: 1+ Integumentary: Yes: WNL Neurological: Yes: Pre-Existing Deficit, Weakness, Other (functional quadriplegia) Psychiatric: Yes: Other Labs: CBC, BMP 03/18/18 07:15 03/18/18 07:15 INR, PTT INR 1.58 (0.82-1.09) H 03/10/18 05:30 Problem List - Problems (1) Sinus bradycardia Assessment/Plan: ECHO: normal LVEF; normal chamberr sizes and wall motion. Telemetry: periods of mild sinus bradycardia. TSH: elevated (11.4); normal total T3; await completion of TFTs, though bradycardia would be expected with hypothyoridism. Maintain hydration. Code(s): R00.1 - BRADYCARDIA, UNSPECIFIED (2) Respiratory distress Code(s): R06.03 - ACUTE RESPIRATORY DISTRESS (3) S/P exploratory laparotomy Code(s): Z98.890 - OTHER SPECIFIED POSTPROCEDURAL STATES (4) Seizure disorder Assessment/Plan: functionaly quadriplegia Code(s): G40.909 - EPILEPSY, UNSP, NOT INTRACTABLE, WITHOUT STATUS EPILEPTICUS (5) Elevated LFTs Assessment/Plan: improving values, though still elevated. F/u with Gi. Code(s): R94.5 - ABNORMAL RESULTS OF LIVER FUNCTION STUDIES (6) Anemia Code(s): D64.9 - ANEMIA, UNSPECIFIED Assessment/Plan cc time spetn: 35 minutes
[2018-03-19] MEDS ORDERED: PT OWN MED DRAWER 7, Y5N ONE ×3 (09:55→22:50)
[2018-03-19] MEDS: AMINO ACIDS/PROTEIN HYDROLYS 30 ML LIQUID.PKT PO SCH (10:07)
[2018-03-19] MEDS: LACOSAMIDE 50 MG TABLET PO SCH ×2 (10:08→22:05)
[2018-03-19] MEDS: PHENobarbital 20 MG/5 ML UNIT-DOSE CUP PEG SCH (10:08)
[2018-03-19] MEDS: LORATADINE 10 MG TABLET PO SCH (10:08)
[2018-03-19] MEDS: GABAPENTIN 400 MG CAPSULE (FP) PO SCH ×2 (10:08→22:05)
[2018-03-19] MEDS: levETIRAcetam 500 MG/5 ML ORAL SOLUTION (UNIT-DOSE CUPS) PO SCH ×2 (10:08→22:49)
[2018-03-19] MEDS: ZINC OXIDE 20% TOPICAL OINTMENT 30 GM TUBE TP SCH ×2 (10:10→22:07)
[2018-03-19] MEDS: BACITRACIN/POLYMYXIN B SULFATE 15 GM TUBE TP SCH ×2 (10:10→22:07)
[2018-03-19] MEDS: LYTES/YERBA SANTA 240 ML BOTTLE MM SCH (10:15)
[2018-03-19 11:12] LABS: HEMATOCRIT 33.8 % (35.4-49); HEMOGLOBIN 11.4 GM/dL (11.7-16.9); MCH 31.9 pg (25.7-33.7); MCHC 33.6 g/dl (32.0-35.9); MEAN CELL VOLUME 94.8 fl (80-96); RBC 3.57 M/mm3 (4.00-5.60); RDW 16.3 % (11.9-15.9); WHITE BLOOD COUNT 15.7 K/mm3 (4.0-10.0)
[2018-03-19 11:19] LABS: ANION GAP 10 (8-16); BLOOD UREA NITROGEN 13 mg/dL (7-18); CALCIUM 8.9 mg/dL (8.5-10.1); CHLORIDE 110 mmol/L (98-107); CO2 25 mmol/L (21-32); CREATININE 0.4 mg/dL (0.7-1.3); GLUCOSE,RANDOM 87 mg/dL (74-106); SODIUM 145 mmol/L (136-145)
[2018-03-19 11:23] LABS: ALBUMIN 3.2 g/dl (3.4-5.0); ANION GAP 10 (8-16); BILIRUBIN,TOTAL 0.4 mg/dL (0.2-1.0); BLOOD UREA NITROGEN 13 mg/dL (7-18); CALCIUM 8.7 mg/dL (8.5-10.1); CHLORIDE 110 mmol/L (98-107); CO2 25 mmol/L (21-32); CREATININE 0.4 mg/dL (0.7-1.3); GLUCOSE,RANDOM 76 mg/dL (74-106); PHOSPHOROUS 4.4 mg/dL (2.5-4.9); SGPT/ALT 90 U/L (12-78); SODIUM 145 mmol/L (136-145)
[2018-03-19 11:25] LABS: ALK PHOS 282 U/L (45-117); POTASSIUM 3.8 mmol/L (3.5-5.1); TOT PROT 7.6 g/dl (6.4-8.2)
[2018-03-19 11:26] LABS: MAGNESIUM 1.9 mg/dL (1.8-2.4); SGOT/AST 74 U/L (15-37)
[2018-03-19 11:54] LABS: POTASSIUM 3.9 mmol/L (3.5-5.1)
[2018-03-19 11:56] LABS: PLATELET COUNT 412 K/MM3 (134-434)
--- NOTE | 2018-03-19 12:27 | PN ---
Progress Note, Physician History of Present Illness: PULMONARY STILL CONGESTED,-RESP DISTRESS - Current Medication List Current Medications: Active Medications Amino Acids (Prosource No Carb Liquid Pkt) 30 ml PO DAILY@0800 [facility] Last Admin: 03/19/18 10:07 Dose: 30 ml Bacitracin/Polymyxin B Sulfate (Polysporin Ointment -) 1 applic TP BID [facility] Last Admin: 03/19/18 10:10 Dose: 1 applic Diazepam (Valium -) 2 mg PO TID [facility] Last Admin: 03/19/18 06:42 Dose: 2 mg Gabapentin (Neurontin -) 400 mg PO BID [facility] Last Admin: 03/19/18 10:08 Dose: 400 mg Heparin Sodium (Porcine) (Heparin -) 5,000 unit SQ TID [facility] Last Admin: 03/19/18 06:42 Dose: 5,000 unit Lacosamide (Vimpat -) 50 mg PO BID [facility] Last Admin: 03/19/18 10:08 Dose: 50 mg Levetiracetam (Keppra Oral Solution -) 1,500 mg PO DAILY [facility] Last Admin: 03/19/18 10:08 Dose: 1,500 mg Levetiracetam (Keppra Oral Solution -) 1,750 mg PO HS [facility] Last Admin: 03/18/18 23:11 Dose: 1,750 mg Levothyroxine Sodium (Synthroid -) 25 mcg PO DAILY@0700 [facility] Last Admin: 03/19/18 06:42 Dose: 25 mcg Loratadine (Claritin -) 10 mg PO DAILY [facility] Last Admin: 03/19/18 10:08 Dose: 10 mg Montelukast Sodium (Singulair -) 5 mg PO HS [facility] Last Admin: 03/18/18 23:12 Dose: 5 mg Multi-Ingredient Ointment (Zinc Oxide) 1 applic TP BID [facility] Last Admin: 03/19/18 10:10 Dose: 1 applic Phenobarbital (Phenobarbital Liquid -) 20 mg PEG DAILY [facility] Last Admin: 03/19/18 10:08 Dose: 20 mg Saliva Substitute (Mouthkote Solution -) 1 applic MM DAILY [facility] Last Admin: 03/19/18 10:15 Dose: 1 applic Vancomycin HCl (Vancomycin Oral Solution) 125 mg GT Q6HPO [facility] Last Admin: 03/19/18 06:42 Dose: 125 mg - Objective Vital Signs: Vital Signs Temperature 99.6 F 03/19/18 10:00 Pulse Rate 82 03/19/18 10:00 Respiratory Rate 19 03/19/18 10:00 Blood Pressure 122/72 03/19/18 10:00 O2 Sat by Pulse Oximetry (%) 93 L 03/19/18 12:16 Constitutional: Yes: Calm, Thin Eyes: Yes: WNL HENT: Yes: WNL Neck: Yes: WNL Cardiovascular: Yes: Regular Rate and Rhythm, S1, S2 Respiratory: Yes: Rhonchi (SCATTERED THANG RHONCHI) Gastrointestinal: Yes: Normal Bowel Sounds, Soft Extremities: Yes: Shortened Edema: No Labs: CBC, BMP 03/19/18 10:03 03/19/18 10:03 INR, PTT INR 1.58 (0.82-1.09) H 03/10/18 05:30 Problem List - Problems (1) Abdominal distention Code(s): R14.0 - ABDOMINAL DISTENSION (GASEOUS) (2) Elevated LFTs Code(s): R94.5 - ABNORMAL RESULTS OF LIVER FUNCTION STUDIES (3) Pneumonia Code(s): J18.9 - PNEUMONIA, UNSPECIFIED ORGANISM (4) Respiratory distress Code(s): R06.03 - ACUTE RESPIRATORY DISTRESS (5) Seizure disorder Code(s): G40.909 - EPILEPSY, UNSP, NOT INTRACTABLE, WITHOUT STATUS EPILEPTICUS (6) Sepsis Code(s): A41.9 - SEPSIS, UNSPECIFIED ORGANISM Qualifiers: Sepsis type: sepsis due to unspecified organism Qualified Code(s): A41.9 - Sepsis, unspecified organism Assessment/Plan ASSESSMENT AND PLAN: Acute Hypoxic Respiratory Failure improving Pneumonia likely Aspiration Severe Sepsis resolving Elevated LFTs likely ischemic injury Abdominal Distention/Constipation Seizure Disorder Mental Retardation - completed antibiotics - aspiration precautions - O2 to keep SpO2 >90% - antiepileptics - DVT prophylaxis - inhaled bronchodilators DR MARTÍNEZ
[2018-03-19 13:38] LABS: URINE APPEARANCE CLOUDY; URINE BILIRUBIN NEGATIVE (<2.0 mg/dL); URINE COLOR YELLOW; URINE GLUCOSE (UA) NEGATIVE (NEGATIVE); URINE KETONE NEGATIVE (NEGATIVE); URINE LEUK ESTERASE NEGATIVE (NEGATIVE); URINE NITRITE NEGATIVE (NEGATIVE); URINE PROTEIN NEGATIVE (NEGATIVE); URINE UROBILINOGEN NEGATIVE mg/dL (0.2-1.0)
[2018-03-19] MEDS ORDERED: SODIUM CHLORIDE 250 ML IV STA (14:13)
[2018-03-19] MEDS ORDERED: SODIUM CHLORIDE 500 ML IV STA (14:17)
[2018-03-19 15:18] VITALS: BMI 21.1
--- NOTE | 2018-03-19 16:24 | PN ---
Teaching Attending Note Name of Resident: Maddie Clark ATTENDING PHYSICIAN STATEMENT I saw and evaluated the patient. I reviewed the resident's note and discussed the case with the resident. I agree with the resident's findings and plan as documented with exceptions below. SUBJECTIVE: Patient seen and examined, nonverbal, unable to assess for ROS. OBJECTIVE: Vital Signs Period Temp Pulse Resp BP Sys/Jay Pulse Ox Last 24 Hr 98.6 F-99.8 F 57-82 18-20 89-122/39-72 92-93 Intake & Output 03/16/18 03/17/18 03/18/18 03/19/18 23:59 23:59 23:59 23:59 Intake Total 2160 6785 620 6265 Output Total 600 1300 Balance 1560 1940 -820 1230 Weight 87 lb 6 oz 75 lb 75 lb 2.842 oz General: lying in bed, non verbal Chest; Decreased effort, limited exam, abdomen:Soft, PEG in place Extremities; contractures Active Medications Albuterol/Ipratropium (Duoneb -) 1 amp NEB RQID [facility] Amino Acids (Prosource No Carb Liquid Pkt) 30 ml PO DAILY@0800 [facility] Last Admin: 03/19/18 10:07 Dose: 30 ml Bacitracin/Polymyxin B Sulfate (Polysporin Ointment -) 1 applic TP BID [facility] Last Admin: 03/19/18 10:10 Dose: 1 applic Diazepam (Valium -) 2 mg PO TID [facility] Last Admin: 03/19/18 13:13 Dose: 2 mg Gabapentin (Neurontin -) 400 mg PO BID [facility] Last Admin: 03/19/18 10:08 Dose: 400 mg Heparin Sodium (Porcine) (Heparin -) 5,000 unit SQ TID [facility] Last Admin: 03/19/18 13:13 Dose: 5,000 unit Lacosamide (Vimpat -) 50 mg PO BID [facility] Last Admin: 03/19/18 10:08 Dose: 50 mg Levetiracetam (Keppra Oral Solution -) 1,500 mg PO DAILY [facility] Last Admin: 03/19/18 10:08 Dose: 1,500 mg Levetiracetam (Keppra Oral Solution -) 1,750 mg PO HS [facility] Last Admin: 03/18/18 23:11 Dose: 1,750 mg Levothyroxine Sodium (Synthroid -) 25 mcg PO DAILY@0700 [facility] Last Admin: 03/19/18 06:42 Dose: 25 mcg Loratadine (Claritin -) 10 mg PO DAILY [facility] Last Admin: 03/19/18 10:08 Dose: 10 mg Montelukast Sodium (Singulair -) 5 mg PO HS [facility] Last Admin: 03/18/18 23:12 Dose: 5 mg Multi-Ingredient Ointment (Zinc Oxide) 1 applic TP BID [facility] Last Admin: 03/19/18 10:10 Dose: 1 applic Phenobarbital (Phenobarbital Liquid -) 20 mg PEG DAILY [facility] Last Admin: 03/19/18 10:08 Dose: 20 mg Saliva Substitute (Mouthkote Solution -) 1 applic MM DAILY [facility] Last Admin: 03/19/18 10:15 Dose: 1 applic Vancomycin HCl (Vancomycin Oral Solution) 125 mg GT Q6HPO [facility] Last Admin: 03/19/18 12:36 Dose: 125 mg Laboratory Results - last 24 hr 03/18/18 03/19/18 03/19/18 07:15 10:03 10:03 WBC 15.7 H RBC 3.57 L Hgb 11.4 L Hct 33.8 L D MCV 94.8 MCH 31.9 MCHC 33.6 RDW 16.3 H Plt Count 412 D MPV 9.0 Absolute Neuts (auto) 9.8 Total Counted 100 Neutrophils % No Result Required. Neutrophils % (Manual) 66.0 Band Neutrophils % 0.0 Lymphocytes % No Result Required. Lymphocytes % (Manual) 27.0 Monocytes % (Manual) 5 Eosinophils % (Manual) 2.0 Basophils % (Manual) 0.0 Nucleated RBC % 0 Sodium 145 Potassium 3.8 Chloride 110 H Carbon Dioxide 25 Anion Gap 10 BUN 13 Creatinine 0.4 L Creat Clearance w eGFR > 60 Random Glucose 76 Calcium 8.7 Phosphorus 4.4 Magnesium 1.9 Total Bilirubin 0.4 AST 74 H ALT 90 H Alkaline Phosphatase 282 H Total Protein 7.6 Albumin 3.2 L Urine Color Urine Appearance Urine pH Ur Specific [place] Urine Protein Urine Glucose (UA) Urine Ketones Urine Blood Urine Nitrite Urine Bilirubin Urine Urobilinogen Ur Leukocyte Esterase Thyroid Peroxidase Ab 28 03/19/18 03/19/18 10:03 13:00 WBC RBC Hgb Hct MCV MCH MCHC RDW Plt Count MPV Absolute Neuts (auto) Total Counted Neutrophils % Neutrophils % (Manual) Band Neutrophils % Lymphocytes % Lymphocytes % (Manual) Monocytes % (Manual) Eosinophils % (Manual) Basophils % (Manual) Nucleated RBC % Sodium 145 Potassium 3.9 Chloride 110 H Carbon Dioxide 25 Anion Gap 10 BUN 13 Creatinine 0.4 L Creat Clearance w eGFR > 60 Random Glucose 87 Calcium 8.9 Phosphorus Magnesium Total Bilirubin AST ALT Alkaline Phosphatase Total Protein Albumin Urine Color Yellow Urine Appearance Cloudy Urine pH 6.0 D Ur Specific [place] 1.015 Urine Protein Negative Urine Glucose (UA) Negative Urine Ketones Negative Urine Blood Negative Urine Nitrite Negative Urine Bilirubin Negative Urine Urobilinogen Negative Ur Leukocyte Esterase Negative Thyroid Peroxidase Ab CXR - no active process ASSESSMENT AND PLAN: 23yo M from [place] with PMH cerebral palsy, mental retardation, functional quadriplegia was sent to the ER with acute hypoxic respiratory failure. was found to be 88% on RA which did not improve with nasal cannula and sent to the hospital. -SIRS, ?etiology. -Acute hypoxic respiratory failure, ?PNA vs aspiration -Severe sepsis due to ?C difficile colitis, vs above -Elevated LFTs, ?From sepsis vs fatty infiltration -Hyperkalemia, from supplementation, resolved -Hypernatremia, improving -Bradycardia, ?Medications, autonomic dysfunction, ?sleep apnea, from relative hypothyroidism -Abnormal Thyroid function tests -Ileus, on CT , ?Chronic, tolerating Tube feeds -Cerebral palsy -Epilepsy Plan: ID input noted, Antibiotics d/candis. PO vancomycinfor 10-14 day course as discussed with Dr. Broderick Rising WBC with low grade temp and SBP 80s-90s,neg u/a and CXR, monitor clinically x 24 hours. Start Gentle hydration and repeat blood cultures. Chest PT, titrate oxygen down as tolerated. frequent deep suctioning. Patient has [facility] [place]. Trend LFts, Abdominal US with fatty liver. Blood sugars improved. Free water flushes. Tube feeds, IVF as above. Telemetry, thyroid panel noted, endocrine input noted. Started on levothyroxine. Seizure precautions, Continue vimpat/Keppra. DVTPPx heparin Dispo d/c to [place] on hold today given above symptoms. Plan has been relayed to Dr. Pride.
[2018-03-19] MEDS: ALBUTEROL SO4 2.5/IPRATROPIUM 0.5 INH SOL 3 ML VIAL.NEB. NEB SCH ×2 (16:30→21:08)
[2018-03-19] MEDS: SODIUM CHLORIDE 1,000 ML IV SCH (16:51)
--- NOTE | 2018-03-19 18:13 | PN ---
Physical Exam: SUBJECTIVE: Patient seen and examined at bedside resting comfortably. OBJECTIVE: Vital Signs Period Temp Pulse Resp BP Sys/Jay Pulse Ox Last 24 Hr 98.6 F-99.8 F 57-82 18-20 89-122/39-72 92-93 GENERAL: Nonverbal, No acute distress LUNGS: Rhonchi improved, less tachypnea compared to prior exams, on 5L via Nasal canula HEART: Regular rate and rhythm, S1, S2 without murmur, rub or gallop. ABDOMEN: Soft, Distended, Hypoactive bowel sounds, PEG tube present in LUQ : [place] catheter present draining clear yellow urine EXTREMITIES: Upper extremities Contracted B/L Laboratory Results - last 24 hr 03/18/18 03/19/18 03/19/18 07:15 10:03 10:03 WBC 15.7 H RBC 3.57 L Hgb 11.4 L Hct 33.8 L D MCV 94.8 MCH 31.9 MCHC 33.6 RDW 16.3 H Plt Count 412 D MPV 9.0 Absolute Neuts (auto) 9.8 Total Counted 100 Neutrophils % No Result Required. Neutrophils % (Manual) 66.0 Band Neutrophils % 0.0 Lymphocytes % No Result Required. Lymphocytes % (Manual) 27.0 Monocytes % (Manual) 5 Eosinophils % (Manual) 2.0 Basophils % (Manual) 0.0 Nucleated RBC % 0 Sodium 145 Potassium 3.8 Chloride 110 H Carbon Dioxide 25 Anion Gap 10 BUN 13 Creatinine 0.4 L Creat Clearance w eGFR > 60 Random Glucose 76 Calcium 8.7 Phosphorus 4.4 Magnesium 1.9 Total Bilirubin 0.4 AST 74 H ALT 90 H Alkaline Phosphatase 282 H Total Protein 7.6 Albumin 3.2 L Urine Color Urine Appearance Urine pH Ur Specific [place] Urine Protein Urine Glucose (UA) Urine Ketones Urine Blood Urine Nitrite Urine Bilirubin Urine Urobilinogen Ur Leukocyte Esterase Thyroid Peroxidase Ab 28 03/19/18 03/19/18 10:03 13:00 WBC RBC Hgb Hct MCV MCH MCHC RDW Plt Count MPV Absolute Neuts (auto) Total Counted Neutrophils % Neutrophils % (Manual) Band Neutrophils % Lymphocytes % Lymphocytes % (Manual) Monocytes % (Manual) Eosinophils % (Manual) Basophils % (Manual) Nucleated RBC % Sodium 145 Potassium 3.9 Chloride 110 H Carbon Dioxide 25 Anion Gap 10 BUN 13 Creatinine 0.4 L Creat Clearance w eGFR > 60 Random Glucose 87 Calcium 8.9 Phosphorus Magnesium Total Bilirubin AST ALT Alkaline Phosphatase Total Protein Albumin Urine Color Yellow Urine Appearance Cloudy Urine pH 6.0 D Ur Specific [place] 1.015 Urine Protein Negative Urine Glucose (UA) Negative Urine Ketones Negative Urine Blood Negative Urine Nitrite Negative Urine Bilirubin Negative Urine Urobilinogen Negative Ur Leukocyte Esterase Negative Thyroid Peroxidase Ab Active Medications Albuterol/Ipratropium (Duoneb -) 1 amp NEB RQID [facility] Last Admin: 03/20/18 08:21 Dose: 1 amp Amino Acids (Prosource No Carb Liquid Pkt) 30 ml PO DAILY@0800 [facility] Last Admin: 03/20/18 09:16 Dose: 30 ml Bacitracin/Polymyxin B Sulfate (Polysporin Ointment -) 1 applic TP BID [facility] Last Admin: 03/20/18 09:18 Dose: 1 applic Diazepam (Valium -) 2 mg PO TID [facility] Last Admin: 03/20/18 06:00 Dose: 2 mg Gabapentin (Neurontin -) 400 mg PO BID [facility] Last Admin: 03/20/18 09:17 Dose: 400 mg Heparin Sodium (Porcine) (Heparin -) 5,000 unit SQ TID [facility] Last Admin: 03/20/18 06:00 Dose: 5,000 unit Sodium Chloride (Normal Saline -) 1,000 mls @ 75 mls/hr IV ASDIR [facility] Last Admin: 03/19/18 16:51 Dose: 75 mls/hr Lacosamide (Vimpat -) 50 mg PO BID [facility] Last Admin: 03/20/18 09:16 Dose: 50 mg Levetiracetam (Keppra Oral Solution -) 1,500 mg PO DAILY [facility] Last Admin: 03/20/18 09:16 Dose: 1,500 mg Levetiracetam (Keppra Oral Solution -) 1,750 mg PO [facility] Last Admin: 03/19/18 22:49 Dose: 1,750 mg Levothyroxine Sodium (Synthroid -) 25 mcg PO DAILY@0700 [facility] Last Admin: 03/20/18 06:01 Dose: 25 mcg Loratadine (Claritin -) 10 mg PO DAILY [facility] Last Admin: 03/20/18 09:16 Dose: 10 mg Montelukast Sodium (Singulair -) 5 mg PO [facility] Last Admin: 03/19/18 22:05 Dose: 5 mg Multi-Ingredient Ointment (Zinc Oxide) 1 applic TP BID [facility] Last Admin: 03/20/18 09:18 Dose: 1 applic Phenobarbital (Phenobarbital Liquid -) 20 mg PEG DAILY [facility] Last Admin: 03/20/18 09:16 Dose: 20 mg Saliva Substitute (Mouthkote Solution -) 1 applic MM DAILY [facility] Last Admin: 03/20/18 09:16 Dose: 1 applic Vancomycin HCl (Vancomycin Oral Solution) 125 mg GT Q6HPO [facility] Last Admin: 03/20/18 06:00 Dose: 125 mg IMAGING - CXR: Imaging reveals scoliosis with extensive spinal support rods, weak inspiration with bilateral effusions, infiltrates and large heart. There is abdominal distention which is quite diffuse. The bones and soft tissues are intact. - CT Abdomen Pelvis: Extensive bilateral pulmonary consolidation with poor aeration of the lung ortiz. Marked air and fluid distention of the entire colon with no gross evidence of obstruction. Markedly limited study as described above. ASSESSMENT/PLAN: 23 y/o M resident of [place] with PMHx of profound developmental delay, cerebral palsy, functional quadriplegia, non-interactive at baseline, reactive airway disease, seizure disorder was admitted for Acute hypoxic respiratory failure. 1. SIRS - WBC 15.7, Tachypnea, Temp 99.8, BP reached 89/39 - UA Negative - CXR: No evidence of a pulmonary infiltrates. Shallow inspiration. No pneumothorax, or large pleural effusion is seen - Started Normal Saline @ 75 mls/hr - Repeat blood cultures pending 2. Abnormal Thyroid function tests - TSH and Free T4 high - Endocrine consulted, appreciate rec's - Pending Thyroid Peroxidase Antibody - Continue Synthroid 25 mcg PO DAILY - Repeat Thyroid function tests in 4 to 6 weeks to adjust dose as necessary 3. Acute hypoxic respiratory failure - Tachypnic, Rhonchi improved however - 88% Saturation did not improve on 5L via [facility] as per chart - Currently on 5L Nasal [place], Sats > 93% - Continue Deep suctioning - Chest physio therapy - Frequent deep suctioning - Pulmonology consulted, appreciate rec's 4. Severe Sepsis - Likely due to HCAP - Previous Lactic Acid: 1.3 - ID Consulted, appreciate rec's, ABx discontinued but continue PO Vanco for 10- 14 days after discharge - GI Consulted, appreciate rec's - Initial Cultures negative, Repeat blood cultures pending 5. Diarrhea - Suspected C. Diff, Stool was positive for C. Diff antigen on this visit - Pending C. Diff PCR - Hx of stool C.Diff antigen positive but toxin negative--given oral vancomycin in 08/2017 - Continue with Oral Vancomycin 6. Hypokalemia - Resolved. Was Hyperkalemic (5.5) - Discontinue KCL 40meq PO TID 7. HyperNatremia - Increased Free water added to tube feed 8. Hypoglycemia - Improving on tube feeds - Continue BGM 9. Ileus - Seen on CT - PEG tube already in place to suction - Abdominal distension improved - Hypoactive bowel sounds - Tolerating Tube feed - GI Consulted, appreciate rec's 10. Acute transaminitis - Elevated LFTs may be part of the sepsis syndrome - Trending down - Consider abdominal Ultrasound - Hepatitis panel pending 10. Seizure disorder - Continue Keppra 11. DVT ppx - Heparin 5000U TID SQ Dispo - likely D/C to [place] once WBC resolves Visit type - Emergency Visit Emergency Visit: Yes ED Registration Date: 03/09/18 Care time: The patient presented to the Emergency Department on the above date and was hospitalized for further evaluation of their emergent condition. - New Patient This patient is new to me today: No - Critical Care Critical Care patient: No
[2018-03-19] MEDS: MONTELUKAST NA 5 MG TAB.CHEW PO SCH (22:05)
[2018-03-20] MEDS: VANCOMYCIN 250 MG/5 ML ORAL SOLUTION GT SCH ×5 (00:10→23:16)
[2018-03-20] MEDS: diazePAM 2 MG TABLET PO SCH ×3 (06:00→22:06)
[2018-03-20] MEDS: HEPARIN NA (PORCINE) 5,000 UNITS/ML 1ML VIAL SQ SCH ×3 (06:00→22:06)
[2018-03-20] MEDS: LEVOTHYROXINE NA 25 MCG TABLET (FP) PO SCH (06:01)
[2018-03-20] MEDS: ALBUTEROL SO4 2.5/IPRATROPIUM 0.5 INH SOL 3 ML VIAL.NEB. NEB SCH ×4 (08:21→20:50)
--- NOTE | 2018-03-20 08:44 | PN ---
Teaching Attending Note Name of Resident: Yaima Parra ATTENDING PHYSICIAN STATEMENT I saw and evaluated the patient. I reviewed the resident's note and discussed the case with the resident. I agree with the resident's findings and plan as documented with exceptions below. SUBJECTIVE: Patient seen and examined. NOn verbal, comfortable, unable to do ROS. OBJECTIVE: Vital Signs Period Temp Pulse Resp BP Sys/Jay Pulse Ox Last 24 Hr 98.2 F-99.6 F 57-86 18-20 89-122/39-72 93-93 Intake & Output 03/17/18 03/18/18 03/19/18 03/20/18 23:59 23:59 23:59 23:59 Intake Total 2628 903 7016 2250 Output Total 1300 1450 700 Balance 1940 -820 -220 1550 Weight 75 lb 75 lb 2.842 oz General: lying in bed in no acute distress, lip smacking movements noted Chest: poor effort, limited exam, occasional coarse rales Abdomen: soft, NT Extremities: no edema, contractures Active Medications Albuterol/Ipratropium (Duoneb -) 1 amp NEB RQID [facility] Last Admin: 03/20/18 08:21 Dose: 1 amp Amino Acids (Prosource No Carb Liquid Pkt) 30 ml PO DAILY@0800 [facility] Last Admin: 03/19/18 10:07 Dose: 30 ml Bacitracin/Polymyxin B Sulfate (Polysporin Ointment -) 1 applic TP BID [facility] Last Admin: 03/19/18 22:07 Dose: 1 applic Diazepam (Valium -) 2 mg PO TID [facility] Last Admin: 03/20/18 06:00 Dose: 2 mg Gabapentin (Neurontin -) 400 mg PO BID [facility] Last Admin: 03/19/18 22:05 Dose: 400 mg Heparin Sodium (Porcine) (Heparin -) 5,000 unit SQ TID [facility] Last Admin: 03/20/18 06:00 Dose: 5,000 unit Sodium Chloride (Normal Saline -) 1,000 mls @ 75 mls/hr IV ASDIR [facility] Last Admin: 03/19/18 16:51 Dose: 75 mls/hr Lacosamide (Vimpat -) 50 mg PO BID [facility] Last Admin: 03/19/18 22:05 Dose: 50 mg Levetiracetam (Keppra Oral Solution -) 1,500 mg PO DAILY [facility] Last Admin: 03/19/18 10:08 Dose: 1,500 mg Levetiracetam (Keppra Oral Solution -) 1,750 mg PO HS [facility] Last Admin: 03/19/18 22:49 Dose: 1,750 mg Levothyroxine Sodium (Synthroid -) 25 mcg PO DAILY@0700 [facility] Last Admin: 03/20/18 06:01 Dose: 25 mcg Loratadine (Claritin -) 10 mg PO DAILY [facility] Last Admin: 03/19/18 10:08 Dose: 10 mg Montelukast Sodium (Singulair -) 5 mg PO HS [facility] Last Admin: 03/19/18 22:05 Dose: 5 mg Multi-Ingredient Ointment (Zinc Oxide) 1 applic TP BID [facility] Last Admin: 03/19/18 22:07 Dose: 1 applic Phenobarbital (Phenobarbital Liquid -) 20 mg PEG DAILY [facility] Last Admin: 03/19/18 10:08 Dose: 20 mg Saliva Substitute (Mouthkote Solution -) 1 applic MM DAILY [facility] Last Admin: 03/19/18 10:15 Dose: 1 applic Vancomycin HCl (Vancomycin Oral Solution) 125 mg GT Q6HPO [facility] Last Admin: 03/20/18 06:00 Dose: 125 mg Laboratory Results - last 24 hr 03/19/18 03/19/18 03/19/18 10:03 10:03 10:03 WBC 15.7 H RBC 3.57 L Hgb 11.4 L Hct 33.8 L D MCV 94.8 MCH 31.9 MCHC 33.6 RDW 16.3 H Plt Count 412 D MPV 9.0 Absolute Neuts (auto) 9.8 Total Counted 100 Neutrophils % No Result Required. Neutrophils % (Manual) 66.0 Band Neutrophils % 0.0 Lymphocytes % No Result Required. Lymphocytes % (Manual) 27.0 Monocytes % (Manual) 5 Eosinophils % (Manual) 2.0 Basophils % (Manual) 0.0 Nucleated RBC % 0 Sodium 145 145 Potassium 3.8 3.9 Chloride 110 H 110 H Carbon Dioxide 25 25 Anion Gap 10 10 BUN 13 13 Creatinine 0.4 L 0.4 L Creat Clearance w eGFR > 60 > 60 Random Glucose 76 87 Calcium 8.7 8.9 Phosphorus 4.4 Magnesium 1.9 Total Bilirubin 0.4 AST 74 H ALT 90 H Alkaline Phosphatase 282 H Total Protein 7.6 Albumin 3.2 L Urine Color Urine Appearance Urine pH Ur Specific [place] Urine Protein Urine Glucose (UA) Urine Ketones Urine Blood Urine Nitrite Urine Bilirubin Urine Urobilinogen Ur Leukocyte Esterase 03/19/18 13:00 WBC RBC Hgb Hct MCV MCH MCHC RDW Plt Count MPV Absolute Neuts (auto) Total Counted Neutrophils % Neutrophils % (Manual) Band Neutrophils % Lymphocytes % Lymphocytes % (Manual) Monocytes % (Manual) Eosinophils % (Manual) Basophils % (Manual) Nucleated RBC % Sodium Potassium Chloride Carbon Dioxide Anion Gap BUN Creatinine Creat Clearance w eGFR Random Glucose Calcium Phosphorus Magnesium Total Bilirubin AST ALT Alkaline Phosphatase Total Protein Albumin Urine Color Yellow Urine Appearance Cloudy Urine pH 6.0 D Ur Specific [place] 1.015 Urine Protein Negative Urine Glucose (UA) Negative Urine Ketones Negative Urine Blood Negative Urine Nitrite Negative Urine Bilirubin Negative Urine Urobilinogen Negative Ur Leukocyte Esterase Negative CXR - no acute process Microbiology 03/08/18 23:11 Blood - Peripheral Venous Blood Culture - Final NO GROWTH AFTER 5 DAYS INCUBATION 03/08/18 23:11 Blood - Peripheral Venous Blood Culture - Final NO GROWTH AFTER 5 DAYS INCUBATION 03/11/18 13:33 Nares - Left Nares MRSA Screen - Final NO MRSA ISOLATED 03/08/18 23:11 Urine - Urine - Catheterized Urine Culture - Final NO GROWTH OBTAINED 03/09/18 02:41 Stool Clostridium difficile Antigen (CHLOÉ) - Final 03/09/18 02:41 Stool Clostridium difficile Toxin Assay - Final ASSESSMENT AND PLAN: 23yo M from [place] with PMH cerebral palsy, mental retardation, functional quadriplegia was sent to the ER with acute hypoxic respiratory failure. was found to be 88% on RA which did not improve with nasal cannula and sent to the hospital. -SIRS, ?etiology. -Acute hypoxic respiratory failure, ?PNA vs aspiration -Severe sepsis due to ?C difficile colitis, vs above -Elevated LFTs, ?From sepsis vs fatty infiltration -Hyperkalemia, from supplementation, resolved -Hypernatremia, improving -Bradycardia, ?Medications, autonomic dysfunction, ?sleep apnea, from relative hypothyroidism -Abnormal Thyroid function tests -Ileus, on CT , ?Chronic, tolerating Tube feeds -Cerebral palsy -Epilepsy -Hypothryoidism Plan: Improved, afebrile, BP stable. Follow up labs but no new s/s concerning for infection. no diarrhea, u/a, CXR non concerning. Repeat blood cultures neg so far. ID input noted, Antibiotics d/candis. PO vancomycinfor 10-14 day course as discussed with Dr. Broderick Chest PT, titrate oxygen down as tolerated. frequent deep suctioning. Patient has [facility]. LFTs stable, Abdominal US with fatty liver. Blood sugars improved. Free water flushes. Tube feeds, IVF Telemetry, thyroid panel noted, endocrine input noted. Started on levothyroxine. Seizure precautions, Continue vimpat/Keppra. DVTPPx heparin Dispo d/c to [place] tomorrow if no concerns. Plan discussed with nursing and all questions answered.
[2018-03-20] MEDS ORDERED: PT OWN MED DRAWER 7, Y5N ONE ×2 (08:49→22:02)
[2018-03-20] MEDS: LACOSAMIDE 50 MG TABLET PO SCH ×2 (09:16→22:06)
[2018-03-20] MEDS: LORATADINE 10 MG TABLET PO SCH (09:16)
[2018-03-20] MEDS: LYTES/YERBA SANTA 240 ML BOTTLE MM SCH (09:16)
[2018-03-20] MEDS: PHENobarbital 20 MG/5 ML UNIT-DOSE CUP PEG SCH (09:16)
[2018-03-20] MEDS: levETIRAcetam 500 MG/5 ML ORAL SOLUTION (UNIT-DOSE CUPS) PO SCH ×2 (09:16→22:12)
[2018-03-20] MEDS: AMINO ACIDS/PROTEIN HYDROLYS 30 ML LIQUID.PKT PO SCH (09:16)
[2018-03-20] MEDS: GABAPENTIN 400 MG CAPSULE (FP) PO SCH ×2 (09:17→22:06)
[2018-03-20] MEDS: BACITRACIN/POLYMYXIN B SULFATE 15 GM TUBE TP SCH ×2 (09:18→22:07)
[2018-03-20] MEDS: ZINC OXIDE 20% TOPICAL OINTMENT 30 GM TUBE TP SCH ×2 (09:18→22:07)
--- NOTE | 2018-03-20 09:40 | PN ---
Physical Exam: SUBJECTIVE: Patient seen and examined. No issues overnight. On maintenance fluids, BP improved, bradycardia improved. For likely transfer back to [place] tomorrow. OBJECTIVE: Vital Signs Period Temp Pulse Resp BP Sys/Jay Pulse Ox Last 24 Hr 98.2 F-99.6 F 57-86 18-20 89-122/39-72 93-93 GENERAL: The patient is resting comfortably in no acute distress. HEAD: Normal with no signs of trauma. ENT: NC-4L LUNGS: Scattered rhonchi HEART: S1, S2 ABDOMEN: Soft, nontender, GT in place, BS present EXTREMITIES: Contracted, externally rotated no edema. CBC, BMP 03/19/18 10:03 03/19/18 10:03 Laboratory Results - last 24 hr 03/19/18 03/19/18 03/19/18 10:03 10:03 10:03 WBC 15.7 H RBC 3.57 L Hgb 11.4 L Hct 33.8 L D MCV 94.8 MCH 31.9 MCHC 33.6 RDW 16.3 H Plt Count 412 D MPV 9.0 Absolute Neuts (auto) 9.8 Total Counted 100 Neutrophils % No Result Required. Neutrophils % (Manual) 66.0 Band Neutrophils % 0.0 Lymphocytes % No Result Required. Lymphocytes % (Manual) 27.0 Monocytes % (Manual) 5 Eosinophils % (Manual) 2.0 Basophils % (Manual) 0.0 Nucleated RBC % 0 Sodium 145 145 Potassium 3.8 3.9 Chloride 110 H 110 H Carbon Dioxide 25 25 Anion Gap 10 10 BUN 13 13 Creatinine 0.4 L 0.4 L Creat Clearance w eGFR > 60 > 60 Random Glucose 76 87 Calcium 8.7 8.9 Phosphorus 4.4 Magnesium 1.9 Total Bilirubin 0.4 AST 74 H ALT 90 H Alkaline Phosphatase 282 H Total Protein 7.6 Albumin 3.2 L Urine Color Urine Appearance Urine pH Ur Specific [place] Urine Protein Urine Glucose (UA) Urine Ketones Urine Blood Urine Nitrite Urine Bilirubin Urine Urobilinogen Ur Leukocyte Esterase 03/19/18 13:00 WBC RBC Hgb Hct MCV MCH MCHC RDW Plt Count MPV Absolute Neuts (auto) Total Counted Neutrophils % Neutrophils % (Manual) Band Neutrophils % Lymphocytes % Lymphocytes % (Manual) Monocytes % (Manual) Eosinophils % (Manual) Basophils % (Manual) Nucleated RBC % Sodium Potassium Chloride Carbon Dioxide Anion Gap BUN Creatinine Creat Clearance w eGFR Random Glucose Calcium Phosphorus Magnesium Total Bilirubin AST ALT Alkaline Phosphatase Total Protein Albumin Urine Color Yellow Urine Appearance Cloudy Urine pH 6.0 D Ur Specific [place] 1.015 Urine Protein Negative Urine Glucose (UA) Negative Urine Ketones Negative Urine Blood Negative Urine Nitrite Negative Urine Bilirubin Negative Urine Urobilinogen Negative Ur Leukocyte Esterase Negative Active Medications Generic Name Dose Route Start Last Admin Trade Name Lazaro PRN Reason Stop Dose Admin Albuterol/Ipratropium 1 amp 03/19/18 16:00 03/20/18 08:21 Duoneb - NEB 1 amp RQID AUNG Administration Amino Acids 30 ml 03/17/18 08:00 03/20/18 09:16 Prosource No Carb Liquid Pkt PO 30 ml DAILY@0800 [facility] Administration Bacitracin/Polymyxin B Sulfate 1 applic 03/16/18 22:00 03/20/18 09:18 Polysporin Ointment - TP 1 applic BID [facility]G Administration Diazepam 2 mg 03/18/18 14:00 03/20/18 06:00 Valium - PO 2 mg TID [facility]G Administration Gabapentin 400 mg 03/16/18 22:00 03/20/18 09:17 Neurontin - PO 400 mg BID [facility] Administration Heparin Sodium (Porcine) 5,000 unit 03/16/18 22:00 03/20/18 06:00 Heparin - SQ 5,000 unit TID [facility]G Administration Sodium Chloride 1,000 mls @ 75 mls/hr 03/19/18 16:30 03/19/18 16:51 Normal Saline - IV 75 mls/hr ASDIR [facility] Administration Lacosamide 50 mg 03/16/18 22:00 03/20/18 09:16 Vimpat - PO 50 mg BID [facility] Administration Levetiracetam 1,500 mg 03/17/18 10:00 03/20/18 09:16 Keppra Oral Solution - PO 1,500 mg DAILY [facility] Administration Levetiracetam 1,750 mg 03/16/18 22:00 03/19/18 22:49 Keppra Oral Solution - PO 1,750 mg HS AUNG Administration Levothyroxine Sodium 25 mcg 03/19/18 07:00 03/20/18 06:01 Synthroid - PO 25 mcg DAILY@0700 [facility] Administration Loratadine 10 mg 03/17/18 10:00 03/20/18 09:16 Claritin - PO 10 mg DAILY [facility] Administration Montelukast Sodium 5 mg 03/16/18 22:00 03/19/18 22:05 Singulair - PO 5 mg HS AUNG Administration Multi-Ingredient Ointment 1 applic 03/16/18 22:00 03/20/18 09:18 Zinc Oxide TP 1 applic BID [facility] Administration Phenobarbital 20 mg 03/17/18 10:00 03/20/18 09:16 Phenobarbital Liquid - PEG 20 mg DAILY [facility] Administration Saliva Substitute 1 applic 03/17/18 10:00 03/20/18 09:16 Mouthkote Solution - MM 1 applic DAILY [facility]G Administration Vancomycin HCl 125 mg 03/16/18 18:00 03/20/18 06:00 Vancomycin Oral Solution GT 125 mg Q6HPO [facility] Administration ASSESSMENT/PLAN: 23 y/o M resident of [place] with PMHx of profound developmental delay, cerebral palsy, functional quadriplegia, non-interactive at baseline, reactive airway disease, seizure disorder was admitted for Acute hypoxic respiratory failure. Acute on chronic hypoxic respiratory failure Improved, pt now on NC at 4L- to taper as tolerated Cont Chest physio therapy May benefit from oxygen on dc Montelukast, duonebs, loratidine Pulm on board Severe Sepsis Presented with Lactic acidosis, tachypnea, hypotension, resolving WBCs trending back down Could have been due to aspiration PNA/ HCAP/ C diff Pt completed iv antibitoics Continue PO vancomycin post discharge 10-14 days Repeat UA--ve, repeat Bld cx pending Cont N saline @75/hr ID on board Hypothyroidism Elevated TSH-11.4, Continue Synthroid 25 mcg PO DAILY For repeat Thyroid function tests in [address] Law on board Diarrhea C. Diff antigen positive Ab negative Cont PO (GT) 125mg Vanc Q6H Bradycardia Could be due to hypothyroidism Resolved dc tele Ileus Resolved Tolerating Tube feed Acute transaminitis Likely secondary to sepsis Resolving Seizure disorder Continue Keppra, vimpat, valium DVT ppx Heparin 5000U TID SQ Dispo For transfer to [place] Thursday- Spoke with Dr Edinson Marte at [phone] and they usually do not accept pts over the weekend Visit type - Emergency Visit Emergency Visit: Yes ED Registration Date: 03/09/18 Care time: The patient presented to the Emergency Department on the above date and was hospitalized for further evaluation of their emergent condition. - New Patient This patient is new to me today: No - Critical Care Critical Care patient: No - Discharge Referral Referred to [facility] No
[2018-03-20 10:06] LABS: BASO % 1.1 % (0-2.0); HEMATOCRIT 28.3 % (35.4-49); HEMOGLOBIN 9.6 GM/dL (11.7-16.9); MCH 32.4 pg (25.7-33.7); MCHC 33.7 g/dl (32.0-35.9); MEAN CELL VOLUME 96.1 fl (80-96); MEAN PLT VOLUME 8.4 fl (7.5-11.1); NEUT % 64.9 % (42.8-82.8); PLATELET COUNT 371 K/MM3 (134-434); RBC 2.95 M/mm3 (4.00-5.60); RDW 16.2 % (11.9-15.9); WHITE BLOOD COUNT 11.3 K/mm3 (4.0-10.0)
--- NOTE | 2018-03-20 12:05 | PN ---
Progress Note (short form) - Note Progress Note: PULMONARY Pt nonverbal. Appears comfortable. Vital Signs Period Temp Pulse Resp BP Sys/Jay Pulse Ox Last 24 Hr 98.2 F-100.1 F 57-86 18-24 89-131/39-68 93-99 Gen: NAD, breathing nonlabored Heart: RRR Lung: decreased breath sounds at the bases Abd: soft, nontender Ext: no edema, contracted CBC, BMP 03/20/18 09:40 03/19/18 10:03 Active Medications Albuterol/Ipratropium (Duoneb -) 1 amp NEB RQID [facility] Last Admin: 03/20/18 08:21 Dose: 1 amp Amino Acids (Prosource No Carb Liquid Pkt) 30 ml PO DAILY@0800 [facility] Last Admin: 03/20/18 09:16 Dose: 30 ml Bacitracin/Polymyxin B Sulfate (Polysporin Ointment -) 1 applic TP BID [facility] Last Admin: 03/20/18 09:18 Dose: 1 applic Diazepam (Valium -) 2 mg PO TID [facility] Last Admin: 03/20/18 06:00 Dose: 2 mg Gabapentin (Neurontin -) 400 mg PO BID [facility] Last Admin: 03/20/18 09:17 Dose: 400 mg Heparin Sodium (Porcine) (Heparin -) 5,000 unit SQ TID [facility] Last Admin: 03/20/18 06:00 Dose: 5,000 unit Sodium Chloride (Normal Saline -) 1,000 mls @ 75 mls/hr IV ASDIR [facility] Last Admin: 03/19/18 16:51 Dose: 75 mls/hr Lacosamide (Vimpat -) 50 mg PO BID [facility] Last Admin: 03/20/18 09:16 Dose: 50 mg Levetiracetam (Keppra Oral Solution -) 1,500 mg PO DAILY [facility] Last Admin: 03/20/18 09:16 Dose: 1,500 mg Levetiracetam (Keppra Oral Solution -) 1,750 mg PO HS [facility] Last Admin: 03/19/18 22:49 Dose: 1,750 mg Levothyroxine Sodium (Synthroid -) 25 mcg PO DAILY@0700 [facility] Last Admin: 03/20/18 06:01 Dose: 25 mcg Loratadine (Claritin -) 10 mg PO DAILY [facility] Last Admin: 03/20/18 09:16 Dose: 10 mg Montelukast Sodium (Singulair -) 5 mg PO HS [facility] Last Admin: 03/19/18 22:05 Dose: 5 mg Multi-Ingredient Ointment (Zinc Oxide) 1 applic TP BID [facility] Last Admin: 03/20/18 09:18 Dose: 1 applic Phenobarbital (Phenobarbital Liquid -) 20 mg PEG DAILY [facility] Last Admin: 03/20/18 09:16 Dose: 20 mg Saliva Substitute (Mouthkote Solution -) 1 applic MM DAILY [facility] Last Admin: 03/20/18 09:16 Dose: 1 applic Vancomycin HCl (Vancomycin Oral Solution) 125 mg GT Q6HPO [facility] Last Admin: 03/20/18 11:57 Dose: 125 mg A/P Acute Hypoxic Respiratory Failure improving Pneumonia likely Aspiration Severe Sepsis resolving Elevated LFTs likely ischemic injury Abdominal Distention/Constipation Seizure Disorder Mental Retardation +C diff Ag - completed antibiotics - aspiration precautions - O2 to keep SpO2 >90% - continue antiepileptics - enteral feeds - DVT prophylaxis
[2018-03-20] MEDS: SODIUM CHLORIDE 1,000 ML IV SCH (17:13)
[2018-03-20] MEDS: MONTELUKAST NA 5 MG TAB.CHEW PO SCH (22:07)
[2018-03-20] MEDS ORDERED: SCOPOLAMINE HYDROBROMIDE 1 PATCH PATCH.TD72 TD ONE (22:15)
[2018-03-20] MEDS ORDERED: ACETAMINOPHEN 650 MG/20.3 ML ORAL SOLUTION (CUPS) PO ONE (22:45)
[2018-03-21] MEDS ORDERED: PT OWN MED DRAWER 7, Y5N ONE ×9 (02:01→23:43)
[2018-03-21] MEDS ORDERED: ACETAMINOPHEN 650 MG/20.3 ML ORAL SOLUTION (CUPS) PO ONE ×2 (05:53→19:00)
[2018-03-21] MEDS: SODIUM CHLORIDE 1,000 ML IV SCH (06:00)
[2018-03-21] MEDS: HEPARIN NA (PORCINE) 5,000 UNITS/ML 1ML VIAL SQ SCH ×3 (06:42→21:44)
[2018-03-21] MEDS: LEVOTHYROXINE NA 25 MCG TABLET (FP) PO SCH (06:42)
[2018-03-21] MEDS: diazePAM 2 MG TABLET PO SCH ×3 (06:42→21:41)
[2018-03-21] MEDS: VANCOMYCIN 250 MG/5 ML ORAL SOLUTION GT SCH ×4 (06:43→23:42)
[2018-03-21] MEDS: ALBUTEROL SO4 2.5/IPRATROPIUM 0.5 INH SOL 3 ML VIAL.NEB. NEB SCH ×4 (08:25→20:11)
[2018-03-21] MEDS: AMINO ACIDS/PROTEIN HYDROLYS 30 ML LIQUID.PKT PO SCH (09:00)
[2018-03-21 09:17] LABS: BASO % 0.3 % (0-2.0); EOS % 0.7 % (0-4.5); HEMATOCRIT 26.8 % (35.4-49); HEMOGLOBIN 8.9 GM/dL (11.7-16.9); MCH 31.9 pg (25.7-33.7); MCHC 33.4 g/dl (32.0-35.9); MEAN CELL VOLUME 95.5 fl (80-96); MEAN PLT VOLUME 8.3 fl (7.5-11.1); MONO % 4.1 % (3.8-10.2); NEUT % 78.9 % (42.8-82.8); PLATELET COUNT 416 K/MM3 (134-434); RDW 16.6 % (11.9-15.9); WHITE BLOOD COUNT 18.4 K/mm3 (4.0-10.0)
[2018-03-21] MEDS: PHENobarbital 20 MG/5 ML UNIT-DOSE CUP PEG SCH (09:24)
[2018-03-21] MEDS: GABAPENTIN 400 MG CAPSULE (FP) PO SCH ×2 (09:24→21:42)
[2018-03-21] MEDS: LACOSAMIDE 50 MG TABLET PO SCH ×2 (09:24→21:41)
[2018-03-21] MEDS: LORATADINE 10 MG TABLET PO SCH (09:24)
[2018-03-21] MEDS: levETIRAcetam 500 MG/5 ML ORAL SOLUTION (UNIT-DOSE CUPS) PO SCH ×2 (09:26→21:42)
[2018-03-21] MEDS: LYTES/YERBA SANTA 240 ML BOTTLE MM SCH (09:28)
[2018-03-21] MEDS: ZINC OXIDE 20% TOPICAL OINTMENT 30 GM TUBE TP SCH ×2 (09:30→21:43)
[2018-03-21] MEDS: BACITRACIN/POLYMYXIN B SULFATE 15 GM TUBE TP SCH ×2 (09:31→21:43)
[2018-03-21 09:39] LABS: ALBUMIN 3.1 g/dl (3.4-5.0); ALK PHOS 267 U/L (45-117); ANION GAP 7 (8-16); BILIRUBIN,TOTAL 0.3 mg/dL (0.2-1.0); BLOOD UREA NITROGEN 7 mg/dL (7-18); CALCIUM 8.4 mg/dL (8.5-10.1); CHLORIDE 112 mmol/L (98-107); CO2 27 mmol/L (21-32); CREATININE 0.4 mg/dL (0.7-1.3); GLUCOSE,RANDOM 100 mg/dL (74-106); MAGNESIUM 1.9 mg/dL (1.8-2.4); SGOT/AST 59 U/L (15-37); SGPT/ALT 89 U/L (12-78); SODIUM 146 mmol/L (136-145); TOT PROT 6.9 g/dl (6.4-8.2)
--- NOTE | 2018-03-21 12:25 | PN ---
Progress Note (short form) - Note Progress Note: PULMONARY Pt nonverbal. Febrile overnight. Vital Signs Period Temp Pulse Resp BP Sys/Jay Pulse Ox Last 24 Hr 98.1 F-101.2 F 59-86 20-20 95-120/45-70 96-98 Gen: NAD, breathing nonlabored Heart: RRR Lung: decreased breath sounds at the bases Abd: soft, nontender Ext: no edema, contracted CBC, BMP 03/21/18 08:56 03/21/18 08:56 Active Medications Albuterol/Ipratropium (Duoneb -) 1 amp NEB RQID [facility] Last Admin: 03/21/18 08:25 Dose: 1 amp Amino Acids (Prosource No Carb Liquid Pkt) 30 ml PO DAILY@0800 [facility] Last Admin: 03/21/18 09:00 Dose: 30 ml Bacitracin/Polymyxin B Sulfate (Polysporin Ointment -) 1 applic TP BID [facility] Last Admin: 03/21/18 09:31 Dose: 1 applic Diazepam (Valium -) 2 mg PO TID [facility] Last Admin: 03/21/18 06:42 Dose: 2 mg Gabapentin (Neurontin -) 400 mg PO BID [facility] Last Admin: 03/21/18 09:24 Dose: 400 mg Heparin Sodium (Porcine) (Heparin -) 5,000 unit SQ TID [facility] Last Admin: 03/21/18 06:42 Dose: 5,000 unit Sodium Chloride (Normal Saline -) 1,000 mls @ 75 mls/hr IV ASDIR [facility] Last Admin: 03/21/18 06:00 Dose: 75 mls/hr Lacosamide (Vimpat -) 50 mg PO BID [facility] Last Admin: 03/21/18 09:24 Dose: 50 mg Levetiracetam (Keppra Oral Solution -) 1,500 mg PO DAILY [facility] Last Admin: 03/21/18 09:26 Dose: 1,500 mg Levetiracetam (Keppra Oral Solution -) 1,750 mg PO HS [facility] Last Admin: 03/20/18 22:12 Dose: 1,750 mg Levothyroxine Sodium (Synthroid -) 25 mcg PO DAILY@0700 [facility] Last Admin: 03/21/18 06:42 Dose: 25 mcg Loratadine (Claritin -) 10 mg PO DAILY [facility] Last Admin: 03/21/18 09:24 Dose: 10 mg Montelukast Sodium (Singulair -) 5 mg PO HS [facility] Last Admin: 03/20/18 22:07 Dose: 5 mg Multi-Ingredient Ointment (Zinc Oxide) 1 applic TP BID [facility] Last Admin: 03/21/18 09:30 Dose: 1 applic Phenobarbital (Phenobarbital Liquid -) 20 mg PEG DAILY [facility] Last Admin: 03/21/18 09:24 Dose: 20 mg Saliva Substitute ([place] Solution -) 1 applic MM DAILY [facility] Last Admin: 03/21/18 09:28 Dose: 1 applic Vancomycin HCl (Vancomycin Oral Solution) 125 mg GT Q6HPO [facility] Last Admin: 03/21/18 12:02 Dose: 125 mg A/P Acute Hypoxic Respiratory Failure improving Pneumonia likely Aspiration Severe Sepsis resolving Elevated LFTs likely ischemic injury Abdominal Distention/Constipation Seizure Disorder Mental Retardation +C diff Ag - ID f/u - f/u cultures - O2 to keep SpO2 >90% - continue antiepileptics - enteral feeds - aspiration precautions - DVT prophylaxis
[2018-03-21] MEDS ORDERED: D5-1/2NS+20 MEQ KCL - 20 MEQ/1,000 ML INFUS.BAG IV SCH (12:30)
[2018-03-21] MEDS ORDERED: POTASSIUM CHLORIDE 10 MEQ in SODIUM CHLORIDE 100 ML IVPB SCH (13:00)
--- NOTE | 2018-03-21 15:16 | PN ---
Physical Exam: SUBJECTIVE: Patient seen and examined, non verbal, opens eyes, but unable to do ROS. OBJECTIVE: Vital Signs Period Temp Pulse Resp BP Sys/Jay Pulse Ox Last 24 Hr 98.1 F-101.2 F 60-86 20-20 95-120/45-70 96-98 GENERAL: lying in stretcher, no tachypnea or acute distress Chest: poor effort, diminshed breath sounds all over, limited exam Abdomen:soft, ND, PEG in place, no grimacing on exam Extremities: contractures. Laboratory Results - last 24 hr 03/21/18 03/21/18 08:56 08:56 WBC 18.4 H RBC 2.80 L Hgb 8.9 L Hct 26.8 L MCV 95.5 MCH 31.9 MCHC 33.4 RDW 16.6 H Plt Count 416 MPV 8.3 Absolute Neuts (auto) 14.5 Neutrophils % 78.9 D Lymphocytes % 16.0 D Monocytes % 4.1 Eosinophils % 0.7 Basophils % 0.3 Nucleated RBC % 0 Sodium 146 H Potassium 3.0 L D Chloride 112 H Carbon Dioxide 27 Anion Gap 7 L BUN 7 Creatinine 0.4 L Creat Clearance w eGFR > 60 Random Glucose 100 Calcium 8.4 L Phosphorus 3.0 D Magnesium 1.9 Total Bilirubin 0.3 AST 59 H D ALT 89 H Alkaline Phosphatase 267 H D Total Protein 6.9 Albumin 3.1 L Active Medications Generic Name Dose Route Start Last Admin Trade Name Brianq PRN Reason Stop Dose Admin Albuterol/Ipratropium 1 amp 03/19/18 16:00 03/21/18 08:25 Duoneb - NEB 1 amp RQID AUNG Administration Amino Acids 30 ml 03/17/18 08:00 03/21/18 09:00 Prosource No Carb Liquid Pkt PO 30 ml DAILY@0800 A[facility]G Administration Bacitracin/Polymyxin B Sulfate 1 applic 03/16/18 22:00 03/21/18 09:31 Polysporin Ointment - TP 1 applic BID AUNG Administration Diazepam 2 mg 03/18/18 14:00 03/21/18 13:35 Valium - PO 2 mg TID AUNG Administration Gabapentin 400 mg 03/16/18 22:00 03/21/18 09:24 Neurontin - PO 400 mg BID AUNG Administration Heparin Sodium (Porcine) 5,000 unit 03/16/18 22:00 03/21/18 13:35 Heparin - SQ 5,000 unit TID AUNG Administration Potassium Chloride/Dextrose/Sod Cl 20 meq in 1,000 mls @ 75 mls/hr 03/21/18 12 :30 03/21/18 13:31 D5-1/2ns+20 Meq Kcl - IV 75 mls/hr ASDIR AUNG Administration Lacosamide 50 mg 03/16/18 22:00 03/21/18 09:24 Vimpat - PO 50 mg BID AUNG Administration Levetiracetam 1,500 mg 03/17/18 10:00 03/21/18 09:26 Keppra Oral Solution - PO 1,500 mg DAILY AUNG Administration Levetiracetam 1,750 mg 03/16/18 22:00 03/20/18 22:12 Keppra Oral Solution - PO 1,750 mg HS AUNG Administration Levothyroxine Sodium 25 mcg 03/19/18 07:00 03/21/18 06:42 Synthroid - PO 25 mcg DAILY@0700 AUNG Administration Loratadine 10 mg 03/17/18 10:00 03/21/18 09:24 Claritin - PO 10 mg DAILY AUNG Administration Montelukast Sodium 5 mg 03/16/18 22:00 03/20/18 22:07 Singulair - PO 5 mg HS AUNG Administration Multi-Ingredient Ointment 1 applic 03/16/18 22:00 03/21/18 09:30 Zinc Oxide TP 1 applic BID AUNG Administration Phenobarbital 20 mg 03/17/18 10:00 03/21/18 09:24 Phenobarbital Liquid - PEG 20 mg DAILY AUNG Administration Saliva Substitute 1 applic 03/17/18 10:00 03/21/18 09:28 Mouthkote Solution - MM 1 applic DAILY AUNG Administration Vancomycin HCl 125 mg 03/16/18 18:00 03/21/18 12:02 Vancomycin Oral Solution GT 125 mg Q6HPO AUNG Administration CT chest/A/P results noted. ASSESSMENT/PLAN: 23yo M from [place] with PMH cerebral palsy, mental retardation, functional quadriplegia was sent to the ER with acute hypoxic respiratory failure. was found to be 88% on RA which did not improve with nasal cannula and sent to the hospital. -SIRS, ?etiology, recurrent aspiration/PNA, RN reporting increased secretions. -Acute hypoxic respiratory failure, ?PNA vs aspiration -Severe sepsis due to ?C difficile colitis, vs above -Elevated LFTs, From sepsis vs fatty infiltration, improved -Hyperkalemia, from supplementation, resolved, now hypokalemia. -Hypernatremia, improving -Bradycardia, ?Medications, autonomic dysfunction, ?sleep apnea, from relative hypothyroidism, resolved -Abnormal Thyroid function tests -Ileus, on CT , ?Chronic, tolerating Tube feeds -Cerebral palsy -Epilepsy -Hypothryoidism Plan: Recurrent fevers and leucocytosis, increased secretions as discussed with nursing. Discussed with Dr. Jackson, follow up recs. Repeat blood cx neg. Sputum cultures if available, urine PNA studies. CT chest/A/P results noted. Na rising, change IVF to D5-1/2 NS with KCL PO vancomycin day 6. Chest PT, titrate oxygen down as tolerated. frequent deep suctioning. Patient has [facility]. LFTs stable, Abdominal US with fatty liver. Blood sugars improved. Free water flushes. Tube feeds, IVF as above Telemetry, thyroid panel noted, endocrine input noted. Started on levothyroxine. TFTs in 4-6 weeks. Seizure precautions, Continue vimpat/Keppra. DVTPPx heparin Dispo d/c to [place] on hold given recurrent fevers and leucocytosis. Plan discussed with nursing and all questions answered. Visit type - Emergency Visit Emergency Visit: Yes ED Registration Date: 03/09/18 Care time: The patient presented to the Emergency Department on the above date and was hospitalized for further evaluation of their emergent condition. - New Patient This patient is new to me today: No - Critical Care Critical Care patient: No - Discharge Referral Referred to [facility] No
--- NOTE | 2018-03-21 15:34 | PN ---
Progress Note, Physician History of Present Illness: Febrile past 24hr WBC 18k Not verbally responsive Repeat blood c/s no growth - Current Medication List Current Medications: Active Medications Albuterol/Ipratropium (Duoneb -) 1 amp NEB RQID [facility] Last Admin: 03/21/18 08:25 Dose: 1 amp Amino Acids (Prosource No Carb Liquid Pkt) 30 ml PO DAILY@0800 [facility] Last Admin: 03/21/18 09:00 Dose: 30 ml Bacitracin/Polymyxin B Sulfate (Polysporin Ointment -) 1 applic TP BID [facility] Last Admin: 03/21/18 09:31 Dose: 1 applic Diazepam (Valium -) 2 mg PO TID [facility] Last Admin: 03/21/18 13:35 Dose: 2 mg Gabapentin (Neurontin -) 400 mg PO BID [facility] Last Admin: 03/21/18 09:24 Dose: 400 mg Heparin Sodium (Porcine) (Heparin -) 5,000 unit SQ TID [facility] Last Admin: 03/21/18 13:35 Dose: 5,000 unit Potassium Chloride/Dextrose/Sod Cl (D5-1/2ns+20 Meq Kcl -) 20 meq in 1,000 mls @ 75 mls/hr IV ASDIR [facility] Last Admin: 03/21/18 13:31 Dose: 75 mls/hr Lacosamide (Vimpat -) 50 mg PO BID [facility] Last Admin: 03/21/18 09:24 Dose: 50 mg Levetiracetam (Keppra Oral Solution -) 1,500 mg PO DAILY [facility] Last Admin: 03/21/18 09:26 Dose: 1,500 mg Levetiracetam (Keppra Oral Solution -) 1,750 mg PO [facility] Last Admin: 03/20/18 22:12 Dose: 1,750 mg Levothyroxine Sodium (Synthroid -) 25 mcg PO DAILY@0700 [facility] Last Admin: 03/21/18 06:42 Dose: 25 mcg Loratadine (Claritin -) 10 mg PO DAILY [facility] Last Admin: 03/21/18 09:24 Dose: 10 mg Montelukast Sodium (Singulair -) 5 mg PO [facility] Last Admin: 03/20/18 22:07 Dose: 5 mg Multi-Ingredient Ointment (Zinc Oxide) 1 applic TP BID [facility] Last Admin: 03/21/18 09:30 Dose: 1 applic Phenobarbital (Phenobarbital Liquid -) 20 mg PEG DAILY [facility] Last Admin: 03/21/18 09:24 Dose: 20 mg Saliva Substitute (Mouthkote Solution -) 1 applic MM DAILY [facility] Last Admin: 03/21/18 09:28 Dose: 1 applic Vancomycin HCl (Vancomycin Oral Solution) 125 mg GT Q6HPO [facility] Last Admin: 03/21/18 12:02 Dose: 125 mg - Objective Vital Signs: Vital Signs Temperature 99 F 03/21/18 14:00 Pulse Rate 60 03/21/18 14:00 Respiratory Rate 20 03/21/18 14:00 Blood Pressure 100/58 03/21/18 14:00 O2 Sat by Pulse Oximetry (%) 96 03/21/18 09:00 Constitutional: Yes: No Distress Eyes: Yes: Conjunctiva Clear Cardiovascular: Yes: Regular Rate and Rhythm, S1, S2 Respiratory: Yes: Rhonchi Gastrointestinal: Yes: Normal Bowel Sounds, Soft. No: Tenderness Labs: CBC, BMP 03/21/18 08:56 03/21/18 08:56 INR, PTT INR 1.58 (0.82-1.09) H 03/10/18 05:30 Assessment/Plan Fever/ leukocytosis ? recurrent aspiration Hx C difficile PCN allergy Will resume antibiotic coverage for possible aspiration/HCAP with ceftriaxone + stat dose vancomycin
[2018-03-21] MEDS ORDERED: VANCOMYCIN 1 GM PREMIX - 1 GM/200 ML BAG IVPB ONE (16:00)
[2018-03-21] MEDS ORDERED: cefTRIAXone SODIUM 1 GM VIAL ONE (16:45)
[2018-03-21] MEDS ORDERED: DEXTROSE 5%-WATER - 50 ML IVPB ONE (16:45)
[2018-03-21] MEDS: CEFTRIAXONE 1 GM in DEXTROSE 5%-WATER - 50 ML IVPB SCH (16:51)
[2018-03-21] MEDS ORDERED: SODIUM CHLORIDE 250 ML IV STA (17:06)
[2018-03-21] MEDS: D5-1/2NS+20 MEQ KCL - 20 MEQ/1,000 ML INFUS.BAG IV SCH (17:14)
[2018-03-21] MEDS ORDERED: ACETAMINOPHEN 650 MG/20.3 ML ORAL SOLUTION (CUPS) PO PRN (19:00)
[2018-03-21] MEDS: MONTELUKAST NA 5 MG TAB.CHEW PO SCH (21:42)
[2018-03-22] MEDS: D5-1/2NS+20 MEQ KCL - 20 MEQ/1,000 ML INFUS.BAG IV SCH (03:30)
[2018-03-22] MEDS: ACETAMINOPHEN 650 MG/20.3 ML ORAL SOLUTION (CUPS) PO PRN (04:31)
[2018-03-22] MEDS: LEVOTHYROXINE NA 25 MCG TABLET (FP) PO SCH (06:21)
[2018-03-22] MEDS: HEPARIN NA (PORCINE) 5,000 UNITS/ML 1ML VIAL SQ SCH ×3 (06:21→22:08)
[2018-03-22] MEDS: diazePAM 2 MG TABLET PO SCH ×3 (06:21→22:09)
[2018-03-22] MEDS: VANCOMYCIN 250 MG/5 ML ORAL SOLUTION GT SCH ×3 (06:22→17:40)
[2018-03-22] MEDS: ALBUTEROL SO4 2.5/IPRATROPIUM 0.5 INH SOL 3 ML VIAL.NEB. NEB SCH ×4 (07:35→20:34)
[2018-03-22 07:59] LABS: BASO % 0.8 % (0-2.0); EOS % 2.7 % (0-4.5); HEMATOCRIT 28.2 % (35.4-49); HEMOGLOBIN 9.5 GM/dL (11.7-16.9); LYMPH % 27.9 % (8-40); MCH 32.7 pg (25.7-33.7); MCHC 33.8 g/dl (32.0-35.9); MEAN CELL VOLUME 96.7 fl (80-96); MEAN PLT VOLUME 8.4 fl (7.5-11.1); MONO % 7.1 % (3.8-10.2); NEUT % 61.5 % (42.8-82.8); PLATELET COUNT 417 K/MM3 (134-434); RBC 2.92 M/mm3 (4.00-5.60); RDW 17.1 % (11.9-15.9); WHITE BLOOD COUNT 11.4 K/mm3 (4.0-10.0)
[2018-03-22] MEDS ORDERED: PT OWN MED DRAWER 7, Y5N ONE ×4 (08:23→22:06)
[2018-03-22] MEDS ORDERED: cefTRIAXone SODIUM 1 GM VIAL ONE (08:23)
[2018-03-22] MEDS ORDERED: DEXTROSE 5%-WATER - 50 ML IVPB ONE (08:24)
[2018-03-22 08:47] LABS: CHLORIDE 112 mmol/L (98-107); POTASSIUM 3.8 mmol/L (3.5-5.1); SODIUM 147 mmol/L (136-145)
[2018-03-22] MEDS: GABAPENTIN 400 MG CAPSULE (FP) PO SCH ×2 (09:00→22:09)
[2018-03-22] MEDS: LACOSAMIDE 50 MG TABLET PO SCH ×2 (09:00→22:09)
[2018-03-22] MEDS: AMINO ACIDS/PROTEIN HYDROLYS 30 ML LIQUID.PKT PO SCH (09:01)
[2018-03-22] MEDS: LORATADINE 10 MG TABLET PO SCH (09:01)
[2018-03-22 09:02] LABS: ALBUMIN 3.3 g/dl (3.4-5.0); ALK PHOS 251 U/L (45-117); ANION GAP 9 (8-16); BILIRUBIN,TOTAL 0.4 mg/dL (0.2-1.0); BLOOD UREA NITROGEN 6 mg/dL (7-18); CALCIUM 8.6 mg/dL (8.5-10.1); CO2 26 mmol/L (21-32); CREATININE 0.4 mg/dL (0.7-1.3); GLUCOSE,RANDOM 91 mg/dL (74-106); MAGNESIUM 1.9 mg/dL (1.8-2.4); PHOSPHOROUS 3.7 mg/dL (2.5-4.9); SGOT/AST 37 U/L (15-37); SGPT/ALT 72 U/L (12-78); TOT PROT 7.2 g/dl (6.4-8.2)
[2018-03-22] MEDS: CEFTRIAXONE 1 GM in DEXTROSE 5%-WATER - 50 ML IVPB SCH (09:02)
[2018-03-22] MEDS: PHENobarbital 20 MG/5 ML UNIT-DOSE CUP PEG SCH (09:03)
[2018-03-22] MEDS: LYTES/YERBA SANTA 240 ML BOTTLE MM SCH (09:03)
[2018-03-22] MEDS: ZINC OXIDE 20% TOPICAL OINTMENT 30 GM TUBE TP SCH ×2 (09:03→22:09)
[2018-03-22] MEDS: BACITRACIN/POLYMYXIN B SULFATE 15 GM TUBE TP SCH ×2 (09:03→23:16)
[2018-03-22] MEDS: levETIRAcetam 500 MG/5 ML ORAL SOLUTION (UNIT-DOSE CUPS) PO SCH ×2 (09:04→22:08)
--- NOTE | 2018-03-22 09:09 | PN ---
Progress Note, Physician History of Present Illness: Not verbally responsive No acute distress Breathing non-labored Low grade temps WBC improved 11K Repeat blood c/s no growth - Current Medication List Current Medications: Active Medications Acetaminophen (Tylenol Oral Solution -) 650 mg PO Q6H PRN PRN Reason: FEVER Last Admin: 03/22/18 04:31 Dose: 650 mg Albuterol/Ipratropium (Duoneb -) [address] [facility] Last Admin: 03/21/18 20:11 Dose: 1 amp Amino Acids (Prosource No Carb Liquid Pkt) 30 ml PO DAILY@0800 [facility] Last Admin: 03/22/18 09:01 Dose: 30 ml Bacitracin/Polymyxin B Sulfate (Polysporin Ointment -) [address] [facility] Last Admin: 03/22/18 09:03 Dose: 1 applic Diazepam (Valium -) [address] [facility] Last Admin: 03/22/18 06:21 Dose: 2 mg Gabapentin (Neurontin -) [address] [facility] Last Admin: 03/22/18 09:00 Dose: 400 mg Heparin Sodium (Porcine) (Heparin -) 5,[address] [facility] Last Admin: 03/22/18 06:21 Dose: 5,000 unit Ceftriaxone Sodium 1 gm/ (Dextrose) 50 mls @ 100 mls/hr IVPB DAILY [facility]; Protocol Last Admin: 03/22/18 09:02 Dose: 100 mls/hr Potassium Chloride/Dextrose/Sod Cl (D5-1/2ns+20 Meq Kcl -) 20 meq in 1,000 mls @ 100 mls/hr IV ASDIR [facility] Last Admin: 03/22/18 03:30 Dose: 100 mls/hr Lacosamide (Vimpat -) [address] [facility] Last Admin: 03/22/18 09:00 Dose: 50 mg Levetiracetam (Keppra Oral Solution -) 1,[address] [facility] Last Admin: 03/22/18 09:04 Dose: 1,500 mg Levetiracetam (Keppra Oral Solution -) 1,[address] [facility] Last Admin: 03/21/18 21:42 Dose: 1,750 mg Levothyroxine Sodium (Synthroid -) 25 mcg PO DAILY@0700 [facility] Last Admin: 03/22/18 06:21 Dose: 25 mcg Loratadine (Claritin -) [address] [facility] Last Admin: 03/22/18 09:01 Dose: 10 mg Montelukast Sodium (Singulair -) [address] [facility] Last Admin: 03/21/18 21:42 Dose: 5 mg Multi-Ingredient Ointment (Zinc Oxide) [address] [facility] Last Admin: 03/22/18 09:03 Dose: 1 applic Phenobarbital (Phenobarbital Liquid -) [address] [facility] Last Admin: 03/22/18 09:03 Dose: 20 mg Saliva Substitute (Mouthkote Solution -) [address] [facility] Last Admin: 03/22/18 09:03 Dose: 1 applic Vancomycin HCl (Vancomycin Oral Solution) [address] [facility] Last Admin: 03/22/18 06:22 Dose: 125 mg - Objective Vital Signs: Vital Signs Temperature 99.2 F 03/22/18 05:33 Pulse Rate 64 03/22/18 05:33 Respiratory Rate 18 03/22/18 05:33 Blood Pressure 94/56 03/22/18 05:33 O2 Sat by Pulse Oximetry (%) 95 03/21/18 21:00 Constitutional: Yes: No Distress Cardiovascular: Yes: Regular Rate and Rhythm, S1, S2 Respiratory: Yes: Rhonchi Gastrointestinal: Yes: Normal Bowel Sounds, Soft. No: Tenderness Edema: No Labs: CBC, BMP 03/22/18 06:20 03/22/18 06:20 INR, PTT INR 1.58 (0.82-1.09) H 03/10/18 05:30 Assessment/Plan Fever/ leukocytosis ? recurrent aspiration Hx C difficile PCN allergy Continue empiric antibiotic coverage for possible aspiration/HCAP with ceftriaxone + stat dose vancomycin
--- NOTE | 2018-03-22 11:17 | PN ---
Progress Note, Physician History of Present Illness: pulmonary no distress,non-verbal,temp 100.2 - Current Medication List Current Medications: Active Medications Acetaminophen (Tylenol Oral Solution -) 650 mg PO Q6H PRN PRN Reason: FEVER Last Admin: 03/22/18 04:31 Dose: 650 mg Albuterol/Ipratropium (Duoneb -) 1 amp NEB RQID [facility] Last Admin: 03/22/18 07:35 Dose: 1 amp Amino Acids (Prosource No Carb Liquid Pkt) 30 ml PO DAILY@0800 [facility] Last Admin: 03/22/18 09:01 Dose: 30 ml Bacitracin/Polymyxin B Sulfate (Polysporin Ointment -) 1 applic TP BID [facility] Last Admin: 03/22/18 09:03 Dose: 1 applic Diazepam (Valium -) 2 mg PO TID [facility] Last Admin: 03/22/18 06:21 Dose: 2 mg Gabapentin (Neurontin -) 400 mg PO BID [facility] Last Admin: 03/22/18 09:00 Dose: 400 mg Heparin Sodium (Porcine) (Heparin -) 5,000 unit SQ TID [facility] Last Admin: 03/22/18 06:21 Dose: 5,000 unit Ceftriaxone Sodium 1 gm/ (Dextrose) 50 mls @ 100 mls/hr IVPB DAILY [facility]; Protocol Last Admin: 03/22/18 09:02 Dose: 100 mls/hr Potassium Chloride/Dextrose/Sod Cl (D5-1/2ns+20 Meq Kcl -) 20 meq in 1,000 mls @ 100 mls/hr IV ASDIR [facility] Last Admin: 03/22/18 03:30 Dose: 100 mls/hr Lacosamide (Vimpat -) 50 mg PO BID [facility] Last Admin: 03/22/18 09:00 Dose: 50 mg Levetiracetam (Keppra Oral Solution -) 1,500 mg PO DAILY [facility] Last Admin: 03/22/18 09:04 Dose: 1,500 mg Levetiracetam (Keppra Oral Solution -) 1,750 mg PO HS [facility] Last Admin: 03/21/18 21:42 Dose: 1,750 mg Levothyroxine Sodium (Synthroid -) 25 mcg PO DAILY@0700 [facility] Last Admin: 03/22/18 06:21 Dose: 25 mcg Loratadine (Claritin -) 10 mg PO DAILY [facility] Last Admin: 03/22/18 09:01 Dose: 10 mg Montelukast Sodium (Singulair -) 5 mg PO HS [facility] Last Admin: 03/21/18 21:42 Dose: 5 mg Multi-Ingredient Ointment (Zinc Oxide) 1 applic TP BID [facility] Last Admin: 03/22/18 09:03 Dose: 1 applic Phenobarbital (Phenobarbital Liquid -) 20 mg PEG DAILY [facility] Last Admin: 03/22/18 09:03 Dose: 20 mg Saliva Substitute (Mouthkote Solution -) 1 applic MM DAILY [facility] Last Admin: 03/22/18 09:03 Dose: 1 applic Vancomycin HCl (Vancomycin Oral Solution) 125 mg GT Q6HPO [facility] Last Admin: 03/22/18 06:22 Dose: 125 mg - Objective Vital Signs: Vital Signs Temperature 98.5 F 03/22/18 10:00 Pulse Rate 67 03/22/18 10:00 Respiratory Rate 18 03/22/18 10:00 Blood Pressure 102/62 03/22/18 10:00 O2 Sat by Pulse Oximetry (%) 95 03/22/18 10:00 Constitutional: Yes: Calm, Thin Eyes: Yes: WNL HENT: Yes: WNL Neck: Yes: WNL Cardiovascular: Yes: Regular Rate and Rhythm, S1, S2 Respiratory: Yes: Diminished, Rhonchi (few rhonchi) Gastrointestinal: Yes: Normal Bowel Sounds, Soft Extremities: Yes: Shortened Edema: No Labs: CBC, BMP 03/22/18 06:20 03/22/18 06:20 INR, PTT INR 1.58 (0.82-1.09) H 03/10/18 05:30 Problem List - Problems (1) Abdominal distention Code(s): R14.0 - ABDOMINAL DISTENSION (GASEOUS) (2) Elevated LFTs Code(s): R94.5 - ABNORMAL RESULTS OF LIVER FUNCTION STUDIES (3) Pneumonia Code(s): J18.9 - PNEUMONIA, UNSPECIFIED ORGANISM (4) Respiratory distress Code(s): R06.03 - ACUTE RESPIRATORY DISTRESS (5) Seizure disorder Code(s): G40.909 - EPILEPSY, UNSP, NOT INTRACTABLE, WITHOUT STATUS EPILEPTICUS (6) Sepsis Code(s): A41.9 - SEPSIS, UNSPECIFIED ORGANISM Qualifiers: Sepsis type: sepsis due to unspecified organism Qualified Code(s): A41.9 - Sepsis, unspecified organism Assessment/Plan ASSESSMENT AND PLAN: Acute Hypoxic Respiratory Failure improving Pneumonia likely Aspiration Severe Sepsis resolving Elevated LFTs likely ischemic injury Abdominal Distention/Constipation Seizure Disorder Mental Retardation - antibiotics as per id - aspiration precautions - O2 to keep SpO2 >90% - antiepileptics - DVT prophylaxis - inhaled bronchodilators DR MARTÍNEZ
[2018-03-22] MEDS ORDERED: ALBUTEROL SO4 0.083% IH SOL 2.5 MG/3 ML VIAL.NEB. NEB PRN (14:09)
--- NOTE | 2018-03-22 14:17 | PN ---
Teaching Attending Note Name of Resident: Maddie Clark ATTENDING PHYSICIAN STATEMENT I saw and evaluated the patient. I reviewed the resident's note and discussed the case with the resident. I agree with the resident's findings and plan as documented with exceptions below. SUBJECTIVE: Patient seen and examined. non verbal, unable to assess for ROS. OBJECTIVE: Vital Signs Period Temp Pulse Resp BP Sys/Jay Pulse Ox Last 24 Hr 97.8 F-100.2 F 60-78 18-20 94-102/43-62 95-95 Intake & Output 03/19/18 03/20/18 03/21/18 03/22/18 23:59 23:59 23:59 23:59 Intake Total 1230 2250 4597.5 2544 Output Total 1450 2800 3400 2800 Balance -220 -550 1197.5 -256 General: lying in bed, mild tachypnea, non verbal Chest: diminished breath sounds all over, poor effort Abdomen:Soft, PEG in place, Extremities: contractures Active Medications Acetaminophen (Tylenol Oral Solution -) 650 mg PO Q6H PRN PRN Reason: FEVER Last Admin: 03/22/18 04:31 Dose: 650 mg Albuterol Sulfate (Ventolin 0.083% Nebulizer Soln -) 1 amp NEB Q3H PRN PRN Reason: SHORT OF BREATH/WHEEZING Albuterol/Ipratropium (Duoneb -) 1 amp NEB RQID [facility] Last Admin: 03/22/18 07:35 Dose: 1 amp Amino Acids (Prosource No Carb Liquid Pkt) 30 ml PO DAILY@0800 [facility] Last Admin: 03/22/18 09:01 Dose: 30 ml Bacitracin/Polymyxin B Sulfate (Polysporin Ointment -) 1 applic TP BID [facility] Last Admin: 03/22/18 09:03 Dose: 1 applic Diazepam (Valium -) 2 mg PO TID [facility] Last Admin: 03/22/18 06:21 Dose: 2 mg Gabapentin (Neurontin -) 400 mg PO BID [facility] Last Admin: 03/22/18 09:00 Dose: 400 mg Heparin Sodium (Porcine) (Heparin -) 5,000 unit SQ TID [facility] Last Admin: 03/22/18 06:21 Dose: 5,000 unit Ceftriaxone Sodium 1 gm/ (Dextrose) 50 mls @ 100 mls/hr IVPB DAILY [facility]; Protocol Last Admin: 03/22/18 09:02 Dose: 100 mls/hr Potassium Chloride/Dextrose/Sod Cl (D5-1/2ns+20 Meq Kcl -) 20 meq in 1,000 mls @ 100 mls/hr IV ASDIR [facility] Last Admin: 03/22/18 03:30 Dose: 100 mls/hr Lacosamide (Vimpat -) 50 mg PO BID [facility] Last Admin: 03/22/18 09:00 Dose: 50 mg Levetiracetam (Keppra Oral Solution -) 1,500 mg PO DAILY [facility] Last Admin: 03/22/18 09:04 Dose: 1,500 mg Levetiracetam (Keppra Oral Solution -) 1,750 mg PO HS [facility] Last Admin: 03/21/18 21:42 Dose: 1,750 mg Levothyroxine Sodium (Synthroid -) 25 mcg PO DAILY@0700 [facility] Last Admin: 03/22/18 06:21 Dose: 25 mcg Loratadine (Claritin -) 10 mg PO DAILY [facility] Last Admin: 03/22/18 09:01 Dose: 10 mg Montelukast Sodium (Singulair -) 5 mg PO HS [facility] Last Admin: 03/21/18 21:42 Dose: 5 mg Multi-Ingredient Ointment (Zinc Oxide) 1 applic TP BID [facility] Last Admin: 03/22/18 09:03 Dose: 1 applic Phenobarbital (Phenobarbital Liquid -) 20 mg PEG DAILY [facility] Last Admin: 03/22/18 09:03 Dose: 20 mg Saliva Substitute (Mouthkote Solution -) 1 applic MM DAILY [facility] Last Admin: 03/22/18 09:03 Dose: 1 applic Vancomycin HCl (Vancomycin Oral Solution) 125 mg GT Q6HPO [facility] Last Admin: 03/22/18 13:23 Dose: 125 mg Laboratory Results - last 24 hr 03/22/18 03/22/18 06:20 06:20 WBC 11.4 H RBC 2.92 L Hgb 9.5 L Hct 28.2 L MCV 96.7 H MCH 32.7 MCHC 33.8 RDW 17.1 H Plt Count 417 MPV 8.4 Absolute Neuts (auto) 7.0 Neutrophils % 61.5 D Lymphocytes % 27.9 D Monocytes % 7.1 Eosinophils % 2.7 D Basophils % 0.8 Nucleated RBC % 0 Sodium 147 H Potassium 3.8 D Chloride 112 H Carbon Dioxide 26 Anion Gap 9 BUN 6 L Creatinine 0.4 L Creat Clearance w eGFR > 60 Random Glucose 91 Calcium 8.6 Phosphorus 3.7 D Magnesium 1.9 Total Bilirubin 0.4 AST 37 D ALT 72 Alkaline Phosphatase 251 H D Total Protein 7.2 Albumin 3.3 L ASSESSMENT AND PLAN: 23yo M from [place] with PMH cerebral palsy, mental retardation, functional quadriplegia was sent to the ER with acute hypoxic respiratory failure. was found to be 88% on RA which did not improve with nasal cannula and sent to the hospital. -SIRS, ?etiology, recurrent aspiration/PNA, RN reporting increased secretions. -Acute hypoxic respiratory failure, ?PNA vs aspiration -Severe sepsis due to ?C difficile colitis, vs above -Elevated LFTs, From sepsis vs fatty infiltration, improved -Hyperkalemia, from supplementation, resolved, now hypokalemia. -Hypernatremia, improving -Bradycardia, ?Medications, autonomic dysfunction, ?sleep apnea, from relative hypothyroidism, resolved -Abnormal Thyroid function tests -Ileus, on CT , ?Chronic, tolerating Tube feeds -Cerebral palsy -Epilepsy -Hypothryoidism Plan: Recurrent fevers and leucocytosis, increased secretions as discussed with nursing. ID input noted. Ceftriaxone day 2. Vancomycin per ID. (had 2-3 days of cefepime/ vancomycin on admission). PO vancomycin day 7. Will need extended treatment once off antibiotics. Repeat blood cx neg. Sputum cultures if available, urine PNA studies neg. CT chest/A/P results from 03/21 noted. Na rising, change IVF to D5W and monitor Na levels. Chest PT, titrate oxygen down as tolerated. frequent deep suctioning. LFTs stable, Abdominal US with fatty liver. Blood sugars improved. Free water flushes. Tube feeds, change IVF as above. Telemetry, thyroid panel noted, endocrine input noted. Started on levothyroxine. TFTs in 4-6 weeks. Seizure precautions, Continue vimpat/Keppra. DVTPPx heparin Dispo d/c to [place] on hold given recurrent fevers and leucocytosis. Plan discussed with nursing and all questions answered.
[2018-03-22] MEDS ORDERED: DEXTROSE 5%-WATER - 1,000 ML IV SCH (14:30)
--- NOTE | 2018-03-22 15:52 | PN ---
Physical Exam: SUBJECTIVE: Patient seen and examined at bedside. OBJECTIVE: Vital Signs Period Temp Pulse Resp BP Sys/Jay Pulse Ox Last 24 Hr 97.8 F-100.2 F 60-78 18-20 94-102/43-62 95-95 GENERAL: Nonverbal, No acute distress LUNGS: Rhonchi improved on 3L via Nasal canula HEART: Regular rate and rhythm, S1, S2 without murmur, rub or gallop. ABDOMEN: Soft, Distended, Hypoactive bowel sounds, PEG tube present in LUQ : [place] catheter present draining clear yellow urine EXTREMITIES: Upper extremities Contracted B/L, tremors and contractions in all extremities Laboratory Results - last 24 hr 03/22/18 03/22/18 06:20 06:20 WBC 11.4 H RBC 2.92 L Hgb 9.5 L Hct 28.2 L MCV 96.7 H MCH 32.7 MCHC 33.8 RDW 17.1 H Plt Count 417 MPV 8.4 Absolute Neuts (auto) 7.0 Neutrophils % 61.5 D Lymphocytes % 27.9 D Monocytes % 7.1 Eosinophils % 2.7 D Basophils % 0.8 Nucleated RBC % 0 Sodium 147 H Potassium 3.8 D Chloride 112 H Carbon Dioxide 26 Anion Gap 9 BUN 6 L Creatinine 0.4 L Creat Clearance w eGFR > 60 Random Glucose 91 Calcium 8.6 Phosphorus 3.7 D Magnesium 1.9 Total Bilirubin 0.4 AST 37 D ALT 72 Alkaline Phosphatase 251 H D Total Protein 7.2 Albumin 3.3 L Active Medications Acetaminophen (Tylenol Oral Solution -) 650 mg PO Q6H PRN PRN Reason: FEVER Last Admin: 03/22/18 04:31 Dose: 650 mg Albuterol Sulfate (Ventolin 0.083% Nebulizer Soln -) 1 amp NEB Q3H PRN PRN Reason: SHORT OF BREATH/WHEEZING Albuterol/Ipratropium (Duoneb -) 1 amp NEB RQID [facility] Last Admin: 03/22/18 11:20 Dose: Not Given Amino Acids (Prosource No Carb Liquid Pkt) 30 ml PO DAILY@0800 [facility] Last Admin: 03/22/18 09:01 Dose: 30 ml Bacitracin/Polymyxin B Sulfate (Polysporin Ointment -) 1 applic TP BID [facility] Last Admin: 03/22/18 09:03 Dose: 1 applic Diazepam (Valium -) 2 mg PO TID [facility] Last Admin: 03/22/18 14:28 Dose: 2 mg Gabapentin (Neurontin -) 400 mg PO BID [facility] Last Admin: 03/22/18 09:00 Dose: 400 mg Heparin Sodium (Porcine) (Heparin -) 5,000 unit SQ TID [facility] Last Admin: 03/22/18 14:27 Dose: 5,000 unit Ceftriaxone Sodium 1 gm/ (Dextrose) 50 mls @ 100 mls/hr IVPB DAILY [facility]; Protocol Last Admin: 03/22/18 09:02 Dose: 100 mls/hr Dextrose (D5w -) 1,000 mls @ 75 mls/hr IV .[id number] [facility] Lacosamide (Vimpat -) 50 mg PO BID [facility] Last Admin: 03/22/18 09:00 Dose: 50 mg Levetiracetam (Keppra Oral Solution -) 1,500 mg PO DAILY [facility] Last Admin: 03/22/18 09:04 Dose: 1,500 mg Levetiracetam (Keppra Oral Solution -) 1,750 mg PO [facility] Last Admin: 03/21/18 21:42 Dose: 1,750 mg Levothyroxine Sodium (Synthroid -) 25 mcg PO DAILY@0700 [facility] Last Admin: 03/22/18 06:21 Dose: 25 mcg Loratadine (Claritin -) 10 mg PO DAILY [facility] Last Admin: 03/22/18 09:01 Dose: 10 mg Montelukast Sodium (Singulair -) 5 mg PO [facility] Last Admin: 03/21/18 21:42 Dose: 5 mg Multi-Ingredient Ointment (Zinc Oxide) 1 applic TP BID [facility] Last Admin: 03/22/18 09:03 Dose: 1 applic Phenobarbital (Phenobarbital Liquid -) 20 mg PEG DAILY [facility] Last Admin: 03/22/18 09:03 Dose: 20 mg Saliva Substitute (Mouthkote Solution -) 1 applic MM DAILY [facility] Last Admin: 03/22/18 09:03 Dose: 1 applic Vancomycin HCl (Vancomycin Oral Solution) 125 mg GT Q6HPO [facility] Last Admin: 03/22/18 13:23 Dose: 125 mg IMAGING - CXR: Imaging reveals scoliosis with extensive spinal support rods, weak inspiration with bilateral effusions, infiltrates and large heart. There is abdominal distention which is quite diffuse. The bones and soft tissues are intact. - CT Abdomen Pelvis: Extensive bilateral pulmonary consolidation with poor aeration of the lung ortiz. Marked air and fluid distention of the entire colon with no gross evidence of obstruction. Markedly limited study as described above. ASSESSMENT/PLAN: 23 y/o M resident of [place] with PMHx of profound developmental delay, cerebral palsy, functional quadriplegia, non-interactive at baseline, reactive airway disease, seizure disorder was admitted for Acute hypoxic respiratory failure. 1. SIRS - WBC trending down, 11.7 today, Temp 100.2 - UA Negative - CXR: No evidence of a pulmonary infiltrates. Shallow inspiration. No pneumothorax, or large pleural effusion is seen - Changed Normal Saline to D5w 1,000 mls @ 75 - Repeat blood cultures negative - Continue Ceftriaxone day 2 - ID Consulted, appreciate rec's 2. Abnormal Thyroid function tests - TSH and Free T4 high - Endocrine consulted, appreciate rec's - Pending Thyroid Peroxidase Antibody - Continue Synthroid 25 mcg PO DAILY - Repeat Thyroid function tests in 4 to 6 weeks to adjust dose as necessary 3. Acute hypoxic respiratory failure - Tachypnic, Rhonchi improved however - 88% Saturation did not improve on 5L via NC at [place] as per chart - Currently on 3L Nasal canulla, Sats > 93% - Continue Deep suctioning - Chest physio therapy - Frequent deep suctioning - Pulmonology consulted, appreciate rec's 4. Diarrhea - Suspected C. Diff, Stool was positive for C. Diff antigen on this visit - Pending C. Diff PCR - Hx of stool C.Diff antigen positive but toxin negative--given oral vancomycin in 08/2017 - Continue with Oral Vancomycin - GI Consulted, appreciate rec's 5. Hypokalemia - Resolved. Was Hyperkalemic (5.5) - Discontinue KCL 40meq PO TID 6. HyperNatremia - Increased Free water added to tube feed 7. Hypoglycemia - Improving on tube feeds - Continue BGM 8. Ileus - Seen on CT - PEG tube already in place to suction - Abdominal distension improved - Hypoactive bowel sounds - Tolerating Tube feed - GI Consulted, appreciate rec's 9. Acute transaminitis - Elevated LFTs may be part of the sepsis syndrome - Trending down - Consider abdominal Ultrasound - Hepatitis panel pending 10. Seizure disorder - Continue Keppra 11. DVT ppx - Heparin 5000U TID SQ Dispo - likely D/C to [place] once WBC resolves Visit type - Emergency Visit Emergency Visit: Yes ED Registration Date: 03/09/18 Care time: The patient presented to the Emergency Department on the above date and was hospitalized for further evaluation of their emergent condition. - New Patient This patient is new to me today: No - Critical Care Critical Care patient: No
[2018-03-22] MEDS: MONTELUKAST NA 5 MG TAB.CHEW PO SCH (22:09)
[2018-03-23] MEDS: VANCOMYCIN 250 MG/5 ML ORAL SOLUTION GT SCH ×3 (00:03→11:33)
[2018-03-23] MEDS: HEPARIN NA (PORCINE) 5,000 UNITS/ML 1ML VIAL SQ SCH ×3 (05:58→21:12)
[2018-03-23] MEDS: diazePAM 2 MG TABLET PO SCH ×3 (05:58→21:12)
[2018-03-23] MEDS: LEVOTHYROXINE NA 25 MCG TABLET (FP) PO SCH (06:00)
[2018-03-23] MEDS ORDERED: PT OWN MED DRAWER 7, Y5N ONE ×5 (06:19→20:22)
[2018-03-23 06:36] LABS: BASO % 3.3 % (0-2.0); EOS % 2.9 % (0-4.5); HEMATOCRIT 29.4 % (35.4-49); HEMOGLOBIN 10.1 GM/dL (11.7-16.9); LYMPH % 35.5 % (8-40); MCH 33.4 pg (25.7-33.7); MCHC 34.4 g/dl (32.0-35.9); MEAN CELL VOLUME 97.1 fl (80-96); MEAN PLT VOLUME 8.4 fl (7.5-11.1); MONO % 8.5 % (3.8-10.2); NEUT % 49.8 % (42.8-82.8); PLATELET COUNT 462 K/MM3 (134-434); RBC 3.02 M/mm3 (4.00-5.60); RDW 17.6 % (11.9-15.9); WHITE BLOOD COUNT 8.9 K/mm3 (4.0-10.0)
[2018-03-23 07:12] LABS: CHLORIDE 108 mmol/L (98-107); POTASSIUM 3.3 mmol/L (3.5-5.1); SODIUM 145 mmol/L (136-145)
[2018-03-23 07:26] LABS: ALBUMIN 3.2 g/dl (3.4-5.0); ALK PHOS 228 U/L (45-117); ANION GAP 11 (8-16); BILIRUBIN,TOTAL 0.4 mg/dL (0.2-1.0); BLOOD UREA NITROGEN 7 mg/dL (7-18); CALCIUM 8.6 mg/dL (8.5-10.1); CO2 26 mmol/L (21-32); CREATININE 0.4 mg/dL (0.7-1.3); GLUCOSE,RANDOM 85 mg/dL (74-106); MAGNESIUM 1.9 mg/dL (1.8-2.4); PHOSPHOROUS 4.8 mg/dL (2.5-4.9); SGOT/AST 27 U/L (15-37); SGPT/ALT 60 U/L (12-78); TOT PROT 7.2 g/dl (6.4-8.2)
[2018-03-23] MEDS ORDERED: cefTRIAXone SODIUM 1 GM VIAL ONE (08:33)
[2018-03-23] MEDS ORDERED: DEXTROSE 5%-WATER - 50 ML IVPB ONE (08:33)
[2018-03-23] MEDS: ALBUTEROL SO4 2.5/IPRATROPIUM 0.5 INH SOL 3 ML VIAL.NEB. NEB SCH ×4 (08:41→19:30)
[2018-03-23] MEDS: AMINO ACIDS/PROTEIN HYDROLYS 30 ML LIQUID.PKT PO SCH (08:44)
[2018-03-23] MEDS: LORATADINE 10 MG TABLET PO SCH (09:04)
[2018-03-23] MEDS: levETIRAcetam 500 MG/5 ML ORAL SOLUTION (UNIT-DOSE CUPS) PO SCH ×2 (09:06→21:11)
[2018-03-23] MEDS: PHENobarbital 20 MG/5 ML UNIT-DOSE CUP PEG SCH (09:06)
[2018-03-23] MEDS: GABAPENTIN 400 MG CAPSULE (FP) PO SCH ×2 (09:06→21:12)
[2018-03-23] MEDS: ZINC OXIDE 20% TOPICAL OINTMENT 30 GM TUBE TP SCH ×2 (09:06→21:12)
[2018-03-23] MEDS: CEFTRIAXONE 1 GM in DEXTROSE 5%-WATER - 50 ML IVPB SCH (09:06)
[2018-03-23] MEDS: LACOSAMIDE 50 MG TABLET PO SCH ×2 (09:06→21:12)
[2018-03-23] MEDS: LYTES/YERBA SANTA 240 ML BOTTLE MM SCH (09:06)
[2018-03-23] MEDS: BACITRACIN/POLYMYXIN B SULFATE 15 GM TUBE TP SCH ×2 (09:06→21:13)
--- NOTE | 2018-03-23 10:43 | PN ---
Progress Note, Physician History of Present Illness: pulmonary awake,mild congestion,-resp distress - Current Medication List Current Medications: Active Medications Acetaminophen (Tylenol Oral Solution -) 650 mg PO Q6H PRN PRN Reason: FEVER Last Admin: 03/22/18 04:31 Dose: 650 mg Albuterol Sulfate (Ventolin 0.083% Nebulizer Soln -) 1 amp NEB Q3H PRN PRN Reason: SHORT OF BREATH/WHEEZING Albuterol/Ipratropium (Duoneb -) 1 amp NEB RQID [facility] Last Admin: 03/22/18 20:34 Dose: 1 amp Amino Acids (Prosource No Carb Liquid Pkt) 30 ml PO DAILY@0800 [facility] Last Admin: 03/23/18 08:44 Dose: 30 ml Bacitracin/Polymyxin B Sulfate (Polysporin Ointment -) 1 applic TP BID [facility] Last Admin: 03/23/18 09:06 Dose: 1 applic Diazepam (Valium -) 2 mg PO TID [facility] Last Admin: 03/23/18 05:58 Dose: 2 mg Gabapentin (Neurontin -) 400 mg PO BID [facility] Last Admin: 03/23/18 09:06 Dose: 400 mg Heparin Sodium (Porcine) (Heparin -) 5,000 unit SQ TID [facility] Last Admin: 03/23/18 05:58 Dose: 5,000 unit Ceftriaxone Sodium 1 gm/ (Dextrose) 50 mls @ 100 mls/hr IVPB DAILY [facility]; Protocol Last Admin: 03/23/18 09:06 Dose: 100 mls/hr Dextrose (D5w -) 1,000 mls @ 75 mls/hr IV .[id number] [facility] Lacosamide (Vimpat -) 50 mg PO BID [facility] Last Admin: 03/23/18 09:06 Dose: 50 mg Levetiracetam (Keppra Oral Solution -) 1,500 mg PO DAILY [facility] Last Admin: 03/23/18 09:06 Dose: 1,500 mg Levetiracetam (Keppra Oral Solution -) 1,750 mg PO HS [facility] Last Admin: 03/22/18 22:08 Dose: 1,750 mg Levothyroxine Sodium (Synthroid -) 25 mcg PO DAILY@0700 [facility] Last Admin: 03/23/18 06:00 Dose: 25 mcg Loratadine (Claritin -) 10 mg PO DAILY [facility] Last Admin: 03/23/18 09:04 Dose: 10 mg Montelukast Sodium (Singulair -) 5 mg PO HS [facility] Last Admin: 03/22/18 22:09 Dose: 5 mg Multi-Ingredient Ointment (Zinc Oxide) 1 applic TP BID [facility] Last Admin: 03/23/18 09:06 Dose: 1 applic Phenobarbital (Phenobarbital Liquid -) 20 mg PEG DAILY [facility] Last Admin: 03/23/18 09:06 Dose: 20 mg Potassium Chloride (Potassium Chloride Oral Liquid) 40 meq PO BID [facility] Saliva Substitute (Mouthkote Solution -) 1 applic MM DAILY [facility] Last Admin: 03/23/18 09:06 Dose: 1 applic Vancomycin HCl (Vancomycin Oral Solution) 125 mg GT Q6HPO [facility] Last Admin: 03/23/18 05:58 Dose: 125 mg - Objective Vital Signs: Vital Signs Temperature 96.7 F L 03/23/18 05:00 Pulse Rate 58 L 03/23/18 05:00 Respiratory Rate 20 03/23/18 05:00 Blood Pressure 95/47 03/23/18 05:00 O2 Sat by Pulse Oximetry (%) 98 03/22/18 21:00 Constitutional: Yes: Calm, Thin Eyes: Yes: WNL HENT: Yes: WNL Neck: Yes: WNL Cardiovascular: Yes: Regular Rate and Rhythm, S1, S2 Respiratory: Yes: Rhonchi (scattered maribeth rhonchi) Gastrointestinal: Yes: Normal Bowel Sounds, Soft Extremities: Yes: Shortened Edema: No Labs: CBC, BMP 03/23/18 06:00 03/23/18 06:00 INR, PTT INR 1.58 (0.82-1.09) H 03/10/18 05:30 Problem List - Problems (1) Abdominal distention Code(s): R14.0 - ABDOMINAL DISTENSION (GASEOUS) (2) Elevated LFTs Code(s): R94.5 - ABNORMAL RESULTS OF LIVER FUNCTION STUDIES (3) Pneumonia Code(s): J18.9 - PNEUMONIA, UNSPECIFIED ORGANISM (4) Respiratory distress Code(s): R06.03 - ACUTE RESPIRATORY DISTRESS (5) Seizure disorder Code(s): G40.909 - EPILEPSY, UNSP, NOT INTRACTABLE, WITHOUT STATUS EPILEPTICUS (6) Sepsis Code(s): A41.9 - SEPSIS, UNSPECIFIED ORGANISM Qualifiers: Sepsis type: sepsis due to unspecified organism Qualified Code(s): A41.9 - Sepsis, unspecified organism Assessment/Plan ASSESSMENT AND PLAN: Acute Hypoxic Respiratory Failure improving Pneumonia likely Aspiration Severe Sepsis resolving Elevated LFTs improved Abdominal Distention/Constipation Seizure Disorder Mental Retardation - antibiotics as per id - aspiration precautions - O2 to keep SpO2 >90% - antiepileptics - DVT prophylaxis - inhaled bronchodilators DR MARTÍNEZ
[2018-03-23] MEDS: POTASSIUM CHLORIDE ORAL LIQUID 20 MEQ/15 ML PO SCH ×2 (11:29→21:11)
--- NOTE | 2018-03-23 13:05 | PN ---
Teaching Attending Note Name of Resident: Maddie Clark ATTENDING PHYSICIAN STATEMENT I saw and evaluated the patient. I reviewed the resident's note and discussed the case with the resident. I agree with the resident's findings and plan as documented. SUBJECTIVe: resting comfortable tonic/clonic movements noted by RN this AM that self resolved after several seconds continues to have intermittent thick white secretions, de-saturated on deep suctioning but then oxygenation improves OBJECTIVE: Last Vital Signs Temp Pulse Resp BP Pulse Ox 97.0 F L 50 L 20 85/52 97 03/23/18 10:00 03/23/18 10:00 03/23/18 10:00 03/23/18 10:03/23/18 10:00 General NAD CV S1 S2 RRR no murmur/rub/gallop lungs CTA anteriorly Abdomen soft. +dull to percussion, hypoactive BS +PEG LUQ in place. no drainage of bleeding noted Extremities contracted extremities ASSESSMENT AND PLAN: 23yo M from [place] with PMH cerebral palsy, mental retardation, functional quadriplegia was sent to the ER with acute hypoxic respiratory failure. was found to be 88% on RA which did not improve with nasal cannula and sent to the hospital. 1. Acute hypoxic respiratory failure- likely due to B/L PNA. currently saturating 97% on RA.as per RN does de-saturate intermittently on deep suctioning. is known to use intermittent supplemental oxygen over at [place]. cont with deep suctioning and chest PT. pulmonary on board 2. Severe sepsis due to B/L PNA and suspected cdiff- concern for repeated aspirations had mild leukocytosis which has resolved. re-started on Ceftriaxone day 3. will d/w ID about transitioning to po. also on vanco po day 14. questionable if PCR was sent, no results can be found. do not believe pt has a re-infection as he was not taking it at [place] prior to arrival. will d/w ID about duraion 4. Seizure- tonic/clonic movements today and noted yesterday, yesterday sounds like myotonic twitching. both times self resolved. will d/w facility about frequency of episodes. if new will consider neuro eval. no noted episodes of hypoxia and infection seems improving. cont home medications 5. Hypothyroid- started on Lt4 this hospital stay. will need repeat TSH in 6 weeks 6. Elevated LFT- likely due to severe sepsis. u/s showing fatty infilration of liver. resolved 7. hyperkalemia- now hypokalemia. will give po 8. hypernatremia- slowly improving. cont free water flushes to 40cc/H 9. hypoglycemia- improved. 10. ileus- seen on CT. appear may be more chronic. tolerating TF. GI on board 11. MR 12. CP 13. DVT ppx- hep sq
--- NOTE | 2018-03-23 13:57 | PN ---
Progress Note (short form) - Note Progress Note: day #3 rocephin afebrile NAD no diarrhea Vital Signs Period Temp Pulse Resp BP Sys/Jay Pulse Ox Last 24 Hr 96.7 F-99.3 F 50-85 18-20 85-134/41-80 96-98 cor-rrr lungs clear, decreased bs at bases abd soft,nt ext no edema CBC, BMP 03/23/18 06:00 03/23/18 06:00 Microbiology 03/19/18 18:00 Blood - Peripheral Venous Blood Culture - Preliminary NO GROWTH OBTAINED AFTER 72 HOURS, INCUBATION TO CONTINUE FOR 2 DAYS. 03/19/18 17:50 Blood - Peripheral Venous Blood Culture - Preliminary NO GROWTH OBTAINED AFTER 72 HOURS, INCUBATION TO CONTINUE FOR 2 DAYS. 03/21/18 17:30 Urine For Antigen Detection Legionella Antigen - Final 03/21/18 17:30 Urine For Antigen Detection Streptococcus pneumoniae Antigen (M - Final 03/08/18 23:11 Blood - Peripheral Venous Blood Culture - Final NO GROWTH AFTER 5 DAYS INCUBATION 03/08/18 23:11 Blood - Peripheral Venous Blood Culture - Final NO GROWTH AFTER 5 DAYS INCUBATION 03/11/18 13:33 Nares - Left Nares MRSA Screen - Final NO MRSA ISOLATED 03/08/18 23:11 Urine - Urine - Catheterized Urine Culture - Final NO GROWTH OBTAINED 03/09/18 02:41 Stool Clostridium difficile Antigen (CHLOÉ) - Final 03/09/18 02:41 Stool Clostridium difficile Toxin Assay - Final a/p fever/leukocytosis resolve day #3 ceftriaxone- ?repeat aspiration, now improved can switch to ceftin to finish 7 days po vanco for one week past last dose of ceftriaxone
--- NOTE | 2018-03-23 15:51 | PN ---
Progress Note, Physician Chief Complaint: Pt contracted; History of Present Illness: This is a 23 YO black man with h/o profound MR/DD, cerebral palsy, spastic quadriplegia, non-interactive at baseline, reactive airway disease, seizure disorder, constipation, and perforated viscous s/p laparotomy;scoliosis, /p spinal surgery ([place] rods), who was BIBA from [place] for desaturations on room air. The house D[employer] SPECIALIST at [place] reports that the patient was desaturating to 88% on RA, improved to only 89-90% on 5 LPM O2, crackles on auscultation with L>R. Vitals reported at [place] are temp 95, SaO2 89%, BP 97/63, RR 24. His mother's phone # is [phone]. - Current Medication List Current Medications: Active Medications Acetaminophen (Tylenol Oral Solution -) 650 mg PO Q6H PRN PRN Reason: FEVER Last Admin: 03/22/18 04:31 Dose: 650 mg Albuterol Sulfate (Ventolin 0.083% Nebulizer Soln -) 1 amp NEB Q3H PRN PRN Reason: SHORT OF BREATH/WHEEZING Albuterol/Ipratropium (Duoneb -) 1 amp NEB RQID [facility] Last Admin: 03/23/18 11:42 Dose: 1 amp Amino Acids (Prosource No Carb Liquid Pkt) 30 ml PO DAILY@0800 [facility] Last Admin: 03/23/18 08:44 Dose: 30 ml Bacitracin/Polymyxin B Sulfate (Polysporin Ointment -) 1 applic TP BID [facility] Last Admin: 03/23/18 09:06 Dose: 1 applic Diazepam (Valium -) 2 mg PO TID [facility] Last Admin: 03/23/18 13:49 Dose: 2 mg Gabapentin (Neurontin -) 400 mg PO BID [facility] Last Admin: 03/23/18 09:06 Dose: 400 mg Heparin Sodium (Porcine) (Heparin -) 5,000 unit SQ TID [facility] Last Admin: 03/23/18 13:50 Dose: 5,000 unit Ceftriaxone Sodium 1 gm/ (Dextrose) 50 mls @ 100 mls/hr IVPB DAILY [facility]; Protocol Last Admin: 03/23/18 09:06 Dose: 100 mls/hr Dextrose (D5w -) 1,000 mls @ 75 mls/hr IV .[id number] [facility] Lacosamide (Vimpat -) 50 mg PO BID [facility] Last Admin: 03/23/18 09:06 Dose: 50 mg Levetiracetam (Keppra Oral Solution -) 1,500 mg PO DAILY [facility] Last Admin: 03/23/18 09:06 Dose: 1,500 mg Levetiracetam (Keppra Oral Solution -) 1,750 mg PO HS [facility] Last Admin: 03/22/18 22:08 Dose: 1,750 mg Levothyroxine Sodium (Synthroid -) 25 mcg PO DAILY@0700 [facility] Last Admin: 03/23/18 06:00 Dose: 25 mcg Loratadine (Claritin -) 10 mg PO DAILY [facility] Last Admin: 03/23/18 09:04 Dose: 10 mg Montelukast Sodium (Singulair -) 5 mg PO HS [facility] Last Admin: 03/22/18 22:09 Dose: 5 mg Multi-Ingredient Ointment (Zinc Oxide) 1 applic TP BID [facility] Last Admin: 03/23/18 09:06 Dose: 1 applic Phenobarbital (Phenobarbital Liquid -) 60 mg PEG DAILY [facility] Potassium Chloride (Potassium Chloride Oral Liquid) 40 meq PO BID [facility] Last Admin: 03/23/18 11:29 Dose: 40 meq Saliva Substitute (Mouthkote Solution -) 1 applic MM DAILY [facility] Last Admin: 03/23/18 09:06 Dose: 1 applic Vancomycin HCl (Vancomycin Oral Solution) 125 mg GT Q6HPO [facility] Last Admin: 03/23/18 11:33 Dose: 125 mg - Objective Vital Signs: Vital Signs Temperature 98.8 F 03/23/18 14:00 Pulse Rate 74 03/23/18 14:00 Respiratory Rate 20 03/23/18 14:00 Blood Pressure 117/61 03/23/18 14:00 O2 Sat by Pulse Oximetry (%) 97 03/23/18 10:00 Constitutional: Yes: Other Eyes: Yes: WNL HENT: Yes: Drooling Neck: Yes: Decreased ROM Cardiovascular: Yes: S1, S2 Respiratory: Yes: Diminished Gastrointestinal: Yes: Soft Genitourinary: No: Anuria Extremities: Yes: Deformity, Shortened Edema: No Peripheral Pulses WNL: Yes Integumentary: Yes: WNL Neurological: Yes: Weakness, Other (functional quadriplegia) Psychiatric: Yes: Other Labs: CBC, BMP 03/23/18 06:00 03/23/18 06:00 INR, PTT INR 1.58 (0.82-1.09) H 03/10/18 05:30 Abnormal Lab Results 03/23/18 03/23/18 06:00 06:00 RBC 3.02 L Hgb 10.1 L Hct 29.4 L MCV 97.1 H RDW 17.6 H Plt Count 462 H Basophils % 3.3 H D Potassium 3.3 L Chloride 108 H Creatinine 0.4 L Alkaline Phosphatase 228 H D Albumin 3.2 L - ....Imaging Chest X-ray: Pending Problem List - Problems (1) Sinus bradycardia Assessment/Plan: ECHO: normal LVEF; normal chamber sizes and wall motion. TSH: elevated (11.4); mildly increased free T4; normal total T3. Pt is on Synthroid. Now with occcasional tachycardia. Code(s): R00.1 - BRADYCARDIA, UNSPECIFIED (2) Respiratory distress Code(s): R06.03 - ACUTE RESPIRATORY DISTRESS (3) S/P exploratory laparotomy Code(s): Z98.890 - OTHER SPECIFIED POSTPROCEDURAL STATES (4) Seizure disorder Assessment/Plan: functional quadriplegia Medications, including Keppra and phenobarbitol, being adjusted. Code(s): G40.909 - EPILEPSY, UNSP, NOT INTRACTABLE, WITHOUT STATUS EPILEPTICUS (5) Elevated LFTs Code(s): R94.5 - ABNORMAL RESULTS OF LIVER FUNCTION STUDIES (6) Anemia Code(s): D64.9 - ANEMIA, UNSPECIFIED (7) Diastolic CHF Assessment/Plan: F/u CXR (congestion noted on CT chest 03/21/18). Code(s): I50.30 - UNSPECIFIED DIASTOLIC (CONGESTIVE) HEART FAILURE (8) Hypokalemia Assessment/Plan: K+ being repleted; f/u all electrolytes. Code(s): E87.6 - HYPOKALEMIA
--- NOTE | 2018-03-23 16:36 | PN ---
Physical Exam: SUBJECTIVE: Patient seen and examined at bedside this morning. Patient continues to have intermittent, thick, white secretions in his oropharynx. As per nursing, patient had 1 loose BM overnight. OBJECTIVE: Vital Signs Period Temp Pulse Resp BP Sys/Jay Pulse Ox Last 24 Hr 96.7 F-99.3 F 50-84 18-20 85-134/41-80 96-98 GENERAL: Nonverbal, No acute distress LUNGS: Rhonchi improved on 3L via Nasal canula HEART: Regular rate and rhythm, S1, S2 without murmur, rub or gallop. ABDOMEN: Soft, Distended, Hypoactive bowel sounds, PEG tube present in LUQ : [place] catheter present draining clear yellow urine EXTREMITIES: Upper extremities Contracted B/L, tremors and contractions in all extremities that self resolve Laboratory Results - last 24 hr 03/23/18 03/23/18 06:00 06:00 WBC 8.9 RBC 3.02 L Hgb 10.1 L Hct 29.4 L MCV 97.1 H MCH 33.4 MCHC 34.4 RDW 17.6 H Plt Count 462 H MPV 8.4 Absolute Neuts (auto) 4.4 Neutrophils % 49.8 Lymphocytes % 35.5 D Monocytes % 8.5 Eosinophils % 2.9 Basophils % 3.3 H D Nucleated RBC % 0 Sodium 145 Potassium 3.3 L Chloride 108 H Carbon Dioxide 26 Anion Gap 11 BUN 7 Creatinine 0.4 L Creat Clearance w eGFR > 60 Random Glucose 85 Calcium 8.6 Phosphorus 4.8 D Magnesium 1.9 Total Bilirubin 0.4 AST 27 D ALT 60 Alkaline Phosphatase 228 H D Total Protein 7.2 Albumin 3.2 L Active Medications Acetaminophen (Tylenol Oral Solution -) 650 mg PO Q6H PRN PRN Reason: FEVER Last Admin: 03/22/18 04:31 Dose: 650 mg Albuterol Sulfate (Ventolin 0.083% Nebulizer Soln -) 1 amp NEB Q3H PRN PRN Reason: SHORT OF BREATH/WHEEZING Albuterol/Ipratropium (Duoneb -) 1 amp NEB RQID [facility] Last Admin: 03/23/18 16:29 Dose: 1 amp Amino Acids (Prosource No Carb Liquid Pkt) 30 ml PO DAILY@0800 [facility] Last Admin: 03/23/18 08:44 Dose: 30 ml Bacitracin/Polymyxin B Sulfate (Polysporin Ointment -) 1 applic TP BID [facility] Last Admin: 03/23/18 09:06 Dose: 1 applic Diazepam (Valium -) 2 mg PO TID [facility] Last Admin: 03/23/18 13:49 Dose: 2 mg Gabapentin (Neurontin -) 400 mg PO BID [facility] Last Admin: 03/23/18 09:06 Dose: 400 mg Heparin Sodium (Porcine) (Heparin -) 5,000 unit SQ TID [facility] Last Admin: 03/23/18 13:50 Dose: 5,000 unit Ceftriaxone Sodium 1 gm/ (Dextrose) 50 mls @ 100 mls/hr IVPB DAILY [facility]; Protocol Last Admin: 03/23/18 09:06 Dose: 100 mls/hr Dextrose (D5w -) 1,000 mls @ 75 mls/hr IV .[id number] [facility] Lacosamide (Vimpat -) 50 mg PO BID [facility] Last Admin: 03/23/18 09:06 Dose: 50 mg Levetiracetam (Keppra Oral Solution -) 1,500 mg PO DAILY [facility] Last Admin: 03/23/18 09:06 Dose: 1,500 mg Levetiracetam (Keppra Oral Solution -) 1,750 mg PO HS [facility] Last Admin: 03/22/18 22:08 Dose: 1,750 mg Levothyroxine Sodium (Synthroid -) 25 mcg PO DAILY@0700 [facility] Last Admin: 03/23/18 06:00 Dose: 25 mcg Loratadine (Claritin -) 10 mg PO DAILY [facility] Last Admin: 03/23/18 09:04 Dose: 10 mg Montelukast Sodium (Singulair -) 5 mg PO HS [facility] Last Admin: 03/22/18 22:09 Dose: 5 mg Multi-Ingredient Ointment (Zinc Oxide) 1 applic TP BID [facility] Last Admin: 03/23/18 09:06 Dose: 1 applic Phenobarbital (Phenobarbital Liquid -) 60 mg PEG DAILY [facility] Potassium Chloride (Potassium Chloride Oral Liquid) 40 meq PO BID [facility] Last Admin: 03/23/18 11:29 Dose: 40 meq Saliva Substitute (Mouthkote Solution -) 1 applic MM DAILY [facility] Last Admin: 03/23/18 09:06 Dose: 1 applic Vancomycin HCl (Vancomycin Oral Solution) 125 mg GT Q6HPO [facility] Last Admin: 03/23/18 11:33 Dose: 125 mg IMAGING - CXR: Imaging reveals scoliosis with extensive spinal support rods, weak inspiration with bilateral effusions, infiltrates and large heart. There is abdominal distention which is quite diffuse. The bones and soft tissues are intact. - CT Abdomen Pelvis: Extensive bilateral pulmonary consolidation with poor aeration of the lung ortiz. Marked air and fluid distention of the entire colon with no gross evidence of obstruction. Markedly limited study as described above. ASSESSMENT/PLAN: 23 y/o M resident of [place] with PMHx of profound developmental delay, cerebral palsy, functional quadriplegia, non-interactive at baseline, reactive airway disease, seizure disorder was admitted for Acute hypoxic respiratory failure. 1. SIRS - WBC trending down, 8.9 today, Temp 99.3 - UA Negative - CXR: No evidence of a pulmonary infiltrates. Shallow inspiration. No pneumothorax, or large pleural effusion is seen - Changed Normal Saline to D5w 1,000 mls @ 75 - Repeat blood cultures negative - Continue Ceftriaxone day 3 - ID Consulted, appreciate rec's, Will need Cefotin 4 days and Vancomycin 7 days on discharge 2. Abnormal Thyroid function tests - TSH and Free T4 high - Endocrine consulted, appreciate rec's - Continue Synthroid 25 mcg PO DAILY - Repeat Thyroid function tests in 4 to 6 weeks to adjust dose as necessary 3. Acute hypoxic respiratory failure - Tachypnic, Rhonchi improved - 88% Saturation did not improve on 5L via NC at [place] as per chart - Currently on 3L Nasal canulla, Sats > 93% - Continue Deep suctioning - Chest physio therapy - Frequent deep suctioning - Pulmonology consulted, appreciate rec's 4. Diarrhea - Suspected C. Diff, Stool was positive for C. Diff antigen on this visit - Pending C. Diff PCR - Hx of stool C.Diff antigen positive but toxin negative--given oral vancomycin in 08/2017 - Continue with Oral Vancomycin - GI Consulted, appreciate rec's 5. Hypokalemia - Resolved. Was Hyperkalemic (5.5) - Discontinue KCL 40meq PO TID 6. HyperNatremia - Increased Free water added to tube feed 7. Hypoglycemia - Improving on tube feeds - Continue BGM 8. Ileus - Seen on CT - PEG tube already in place to suction - Abdominal distension improved - Hypoactive bowel sounds - Tolerating Tube feed - GI Consulted, appreciate rec's 9. Acute transaminitis - Elevated LFTs may be part of the sepsis syndrome - Resolved - Abdominal Ultrasound reviewed - Hepatitis panel pending 10. Seizure disorder - Continue Keppra - Tonic/clonic contractions during exam today that self resolved - Facility says these are not new - Continue Phenobarbital 60 mg PEG DAILY 11. DVT ppx - Heparin 5000U TID SQ Dispo - likely D/C to [place] tomorrow Visit type - Emergency Visit Emergency Visit: Yes ED Registration Date: 03/09/18 Care time: The patient presented to the Emergency Department on the above date and was hospitalized for further evaluation of their emergent condition. - New Patient This patient is new to me today: No - Critical Care Critical Care patient: No
[2018-03-23] MEDS ORDERED: IPRATROPIUM BR 0.02% 0.5 MG/2.5 ML VIAL.NEB. NEB ONE (18:58)
[2018-03-23] MEDS ORDERED: ALBUTEROL SO4 0.042% IH SOL 1.25 MG/3 ML VIAL.NEB NEB ONE (18:58)
[2018-03-23] MEDS: MONTELUKAST NA 5 MG TAB.CHEW PO SCH (21:12)
[2018-03-23] MEDS: ACETAMINOPHEN 650 MG/20.3 ML ORAL SOLUTION (CUPS) PO PRN (21:13)
[2018-03-24] MEDS: ACETAMINOPHEN 650 MG/20.3 ML ORAL SOLUTION (CUPS) PO PRN ×3 (04:44→21:10)
[2018-03-24] MEDS ORDERED: DEXTROSE 5%-WATER - 1,000 ML IV SCH (04:47)
[2018-03-24] MEDS: HEPARIN NA (PORCINE) 5,000 UNITS/ML 1ML VIAL SQ SCH ×3 (04:59→21:09)
[2018-03-24] MEDS: diazePAM 2 MG TABLET PO SCH ×3 (05:00→21:09)
[2018-03-24] MEDS: LEVOTHYROXINE NA 25 MCG TABLET (FP) PO SCH (06:01)
[2018-03-24] MEDS: ALBUTEROL SO4 2.5/IPRATROPIUM 0.5 INH SOL 3 ML VIAL.NEB. NEB SCH ×4 (08:08→20:48)
[2018-03-24] MEDS ORDERED: DEXTROSE 5%-WATER - 50 ML IVPB ONE (09:54)
[2018-03-24] MEDS ORDERED: cefTRIAXone SODIUM 1 GM VIAL ONE (09:54)
[2018-03-24] MEDS ORDERED: PT OWN MED DRAWER 7, Y5N ONE ×2 (09:56→20:15)
[2018-03-24] MEDS: ZINC OXIDE 20% TOPICAL OINTMENT 30 GM TUBE TP SCH ×2 (10:00→21:10)
[2018-03-24] MEDS: LYTES/YERBA SANTA 240 ML BOTTLE MM SCH (10:00)
[2018-03-24] MEDS: GABAPENTIN 400 MG CAPSULE (FP) PO SCH ×2 (10:01→21:09)
[2018-03-24] MEDS: LORATADINE 10 MG TABLET PO SCH (10:01)
[2018-03-24] MEDS: CEFTRIAXONE 1 GM in DEXTROSE 5%-WATER - 50 ML IVPB SCH (10:01)
[2018-03-24] MEDS: LACOSAMIDE 50 MG TABLET PO SCH ×2 (10:01→21:09)
[2018-03-24] MEDS: levETIRAcetam 500 MG/5 ML ORAL SOLUTION (UNIT-DOSE CUPS) PO SCH ×2 (10:02→21:09)
[2018-03-24] MEDS: PHENobarbital 20 MG/5 ML UNIT-DOSE CUP PEG SCH (10:02)
[2018-03-24] MEDS: AMINO ACIDS/PROTEIN HYDROLYS 30 ML LIQUID.PKT PO SCH (10:04)
[2018-03-24 10:29] LABS: ANION GAP 11 (8-16); BLOOD UREA NITROGEN 8 mg/dL (7-18); CALCIUM 9.6 mg/dL (8.5-10.1); CHLORIDE 111 mmol/L (98-107); CO2 24 mmol/L (21-32); GLUCOSE,RANDOM 90 mg/dL (74-106); POTASSIUM 4.6 mmol/L (3.5-5.1); SODIUM 146 mmol/L (136-145)
[2018-03-24 10:32] LABS: CREATININE 0.6 mg/dL (0.7-1.3); MAGNESIUM 2.1 mg/dL (1.8-2.4)
--- NOTE | 2018-03-24 10:51 | PN ---
Progress Note, Physician History of Present Illness: pulmonary awake,less congested,-resp distress - Current Medication List Current Medications: Active Medications Acetaminophen (Tylenol Oral Solution -) 650 mg PO Q6H PRN PRN Reason: FEVER Last Admin: 03/24/18 04:44 Dose: 650 mg Albuterol Sulfate (Ventolin 0.083% Nebulizer Soln -) 1 amp NEB Q3H PRN PRN Reason: SHORT OF BREATH/WHEEZING Albuterol/Ipratropium (Duoneb -) 1 amp NEB RQID [facility] Last Admin: 03/24/18 08:08 Dose: 1 amp Amino Acids (Prosource No Carb Liquid Pkt) 30 ml PO DAILY@0800 [facility] Last Admin: 03/24/18 10:04 Dose: 30 ml Diazepam (Valium -) 2 mg PO TID [facility] Last Admin: 03/24/18 05:00 Dose: 2 mg Gabapentin (Neurontin -) 400 mg PO BID [facility] Last Admin: 03/24/18 10:01 Dose: 400 mg Heparin Sodium (Porcine) (Heparin -) 5,000 unit SQ TID [facility] Last Admin: 03/24/18 04:59 Dose: 5,000 unit Ceftriaxone Sodium 1 gm/ (Dextrose) 50 mls @ 100 mls/hr IVPB DAILY [facility]; Protocol Last Admin: 03/24/18 10:01 Dose: 100 mls/hr Lacosamide (Vimpat -) 50 mg PO BID [facility] Last Admin: 03/24/18 10:01 Dose: 50 mg Levetiracetam (Keppra Oral Solution -) 1,500 mg PO DAILY [facility] Last Admin: 03/24/18 10:02 Dose: 1,500 mg Levetiracetam (Keppra Oral Solution -) 1,750 mg PO [facility] Last Admin: 03/23/18 21:11 Dose: 1,750 mg Levothyroxine Sodium (Synthroid -) 25 mcg PO DAILY@0700 [facility] Last Admin: 03/24/18 06:01 Dose: 25 mcg Loratadine (Claritin -) 10 mg PO DAILY [facility] Last Admin: 03/24/18 10:01 Dose: 10 mg Montelukast Sodium (Singulair -) 5 mg PO HS [facility] Last Admin: 03/23/18 21:12 Dose: 5 mg Multi-Ingredient Ointment (Zinc Oxide) 1 applic TP BID [facility] Last Admin: 03/23/18 21:12 Dose: 1 applic Phenobarbital (Phenobarbital Liquid -) 60 mg PEG DAILY [facility] Last Admin: 03/24/18 10:02 Dose: 60 mg Saliva Substitute (Mouthkote Solution -) 1 applic MM DAILY [facility] Last Admin: 03/23/18 09:06 Dose: 1 applic - Objective Vital Signs: Vital Signs Temperature 99.1 F 03/24/18 06:00 Pulse Rate 108 H 03/24/18 06:00 Respiratory Rate 24 03/24/18 06:00 Blood Pressure 120/66 03/24/18 06:00 O2 Sat by Pulse Oximetry (%) 97 03/23/18 21:00 Constitutional: Yes: Calm, Thin Eyes: Yes: WNL Neck: Yes: WNL Cardiovascular: Yes: Regular Rate and Rhythm, S1, S2 Respiratory: Yes: Rhonchi (scattered maribeth rhonchi) Gastrointestinal: Yes: Normal Bowel Sounds, Soft Extremities: Yes: Shortened Edema: No Labs: CBC, BMP 03/24/18 09:17 INR, PTT INR 1.58 (0.82-1.09) H 03/10/18 05:30 - ....Imaging Chest X-ray: Report Reviewed, Image Reviewed Problem List - Problems (1) Abdominal distention Code(s): R14.0 - ABDOMINAL DISTENSION (GASEOUS) (2) Elevated LFTs Code(s): R94.5 - ABNORMAL RESULTS OF LIVER FUNCTION STUDIES (3) Pneumonia Code(s): J18.9 - PNEUMONIA, UNSPECIFIED ORGANISM (4) Respiratory distress Code(s): R06.03 - ACUTE RESPIRATORY DISTRESS (5) Seizure disorder Code(s): G40.909 - EPILEPSY, UNSP, NOT INTRACTABLE, WITHOUT STATUS EPILEPTICUS (6) Sepsis Code(s): A41.9 - SEPSIS, UNSPECIFIED ORGANISM Qualifiers: Sepsis type: sepsis due to unspecified organism Qualified Code(s): A41.9 - Sepsis, unspecified organism Assessment/Plan ASSESSMENT AND PLAN: Acute Hypoxic Respiratory Failure improving Pneumonia likely Aspiration Severe Sepsis resolving Elevated LFTs improved Abdominal Distention/Constipation Seizure Disorder Mental Retardation - antibiotics as per id - aspiration precautions - O2 to keep SpO2 >90% - antiepileptics - DVT prophylaxis - inhaled bronchodilators DR MARTÍNEZ
--- NOTE | 2018-03-24 11:51 | PN ---
Teaching Attending Note Name of Resident: Maddei Clark ATTENDING PHYSICIAN STATEMENT I saw and evaluated the patient. I reviewed the resident's note and discussed the case with the resident. I agree with the resident's findings and plan as documented. SUBJECTIVE:episode this AM where he became tachypnic and tachycardic. noted to be moaning during this time and drooling at the mouth. at time of my assessment pt was tachypnic but breathing comfortable, continuing to drool OBJECTIVE: Last Vital Signs Temp Pulse Resp BP Pulse Ox 101.1 F H 120 H 24 144/88 97 03/24/18 10:00 03/24/18 10:00 03/24/18 10:00 03/24/18 10:03/23/18 21:00 General NAD, tachypnic CV S1 S2 RRR no murmur/rub/gallop lungs diffuse rhonchi L>R. clear R base Abdomen soft. +dull to percussion, hypoactive BS +PEG LUQ in place. no drainage of bleeding noted Extremities contracted extremities ASSESSMENT AND PLAN: 23yo M from [place] with PMH cerebral palsy, mental retardation, functional quadriplegia was sent to the ER with acute hypoxic respiratory failure. was found to be 88% on RA which did not improve with nasal cannula and sent to the hospital. 1. Acute hypoxic respiratory failure- likely due to B/L PNA and developing congestion. CXR taken this AM showing some hilar congestion, no effusions noted on my read. will give lasix 40mg IV x1 and re-evaluate. ensure HOB is elevated > 45degrees, cont with deep suctioning. as per RN no thick secretions noted today. chest PT. aspiration precautions. currently saturating 97% on RA.pulmonary on board 2. Severe sepsis due to B/L PNA and suspected cdiff- concern for repeated aspirations had mild leukocytosis which has resolved. on Ceftriaxone day 4. will siwtch to ceftin for 7 days. cont vanco for additional 7 days. 4. Seizure-no repeat seizure like activity noted. called place to [place] yesterday and noted he does have intermittent seizure at the facility and that phenobarbital was dosed incorrectly which is now adjusted. will cont to monitor for seizure like activity. 5. Hypothyroid- started on Lt4 this hospital stay. will need repeat TSH in 6 weeks 6. Elevated LFT- likely due to severe sepsis. u/s showing fatty infilration of liver. resolved 7. hyperkalemia- resolved 8. hypernatremia- slowly improving. cont free water flushes to 40cc/H 9. hypoglycemia- improved. 10. ileus- seen on CT. appear may be more chronic. tolerating TF. GI on board 11. MR 12. CP 13. DVT ppx- hep sq
--- NOTE | 2018-03-24 14:42 | PN ---
Physical Exam: SUBJECTIVE: Patient seen and examined at bedside this morning. Patient became tachycardic (>140s) and tachypnic during examination. Patient was additionally moaning while also drooling significant amounts of saliva. As per nursing, patient had a loose, watery BM overnight. OBJECTIVE: Vital Signs Period Temp Pulse Resp BP Sys/Jay Pulse Ox Last 24 Hr 99.0 F-101.1 F 85-120 20-24 105-144/42-88 97-97 GENERAL: Nonverbal, No acute distress LUNGS: More Rhonchi throughout the airfields today, No longer on oxygen via Nasal canula HEART: Regular rate and rhythm, S1, S2 without murmur, rub or gallop. ABDOMEN: Soft, Distended, Hypoactive bowel sounds, PEG tube present in LUQ : [place] catheter present draining clear yellow urine EXTREMITIES: Upper extremities Contracted B/L, tremors and contractions in all extremities that self resolve Laboratory Results - last 24 hr 03/24/18 09:17 Sodium 146 H Potassium 4.6 D Chloride 111 H Carbon Dioxide 24 Anion Gap 11 BUN 8 Creatinine 0.6 L Creat Clearance w eGFR > 60 Random Glucose 90 Calcium 9.6 Magnesium 2.1 Active Medications Acetaminophen (Tylenol Oral Solution -) 650 mg PO Q6H PRN PRN Reason: FEVER Last Admin: 03/24/18 04:44 Dose: 650 mg Albuterol Sulfate (Ventolin 0.083% Nebulizer Soln -) 1 amp NEB Q3H PRN PRN Reason: SHORT OF BREATH/WHEEZING Albuterol/Ipratropium (Duoneb -) 1 amp NEB RQID [facility] Last Admin: 03/24/18 11:54 Dose: 1 amp Amino Acids (Prosource No Carb Liquid Pkt) 30 ml PO DAILY@0800 [facility] Last Admin: 03/24/18 10:04 Dose: 30 ml Diazepam (Valium -) 2 mg PO TID [facility] Last Admin: 03/24/18 05:00 Dose: 2 mg Gabapentin (Neurontin -) 400 mg PO BID [facility] Last Admin: 03/24/18 10:01 Dose: 400 mg Heparin Sodium (Porcine) (Heparin -) 5,000 unit SQ TID [facility] Last Admin: 03/24/18 04:59 Dose: 5,000 unit Ceftriaxone Sodium 1 gm/ (Dextrose) 50 mls @ 100 mls/hr IVPB DAILY [facility]; Protocol Last Admin: 03/24/18 10:01 Dose: 100 mls/hr Lacosamide (Vimpat -) 50 mg PO BID [facility] Last Admin: 03/24/18 10:01 Dose: 50 mg Levetiracetam (Keppra Oral Solution -) 1,500 mg PO DAILY [facility] Last Admin: 03/24/18 10:02 Dose: 1,500 mg Levetiracetam (Keppra Oral Solution -) 1,750 mg PO HS [facility] Last Admin: 03/23/18 21:11 Dose: 1,750 mg Levothyroxine Sodium (Synthroid -) 25 mcg PO DAILY@0700 [facility] Last Admin: 03/24/18 06:01 Dose: 25 mcg Loratadine (Claritin -) 10 mg PO DAILY [facility] Last Admin: 03/24/18 10:01 Dose: 10 mg Montelukast Sodium (Singulair -) 5 mg PO [facility] Last Admin: 03/23/18 21:12 Dose: 5 mg Multi-Ingredient Ointment (Zinc Oxide) 1 applic TP BID [facility] Last Admin: 03/23/18 21:12 Dose: 1 applic Phenobarbital (Phenobarbital Liquid -) 60 mg PEG DAILY [facility] Last Admin: 03/24/18 10:02 Dose: 60 mg Saliva Substitute (Mouthkote Solution -) 1 applic MM DAILY [facility] Last Admin: 03/23/18 09:06 Dose: 1 applic Scopolamine HBr (Transderm-Scop -) 1 patch TD Q72H [facility] IMAGING - CXR: Imaging reveals scoliosis with extensive spinal support rods, weak inspiration with bilateral effusions, infiltrates and large heart. There is abdominal distention which is quite diffuse. The bones and soft tissues are intact. - CT Abdomen Pelvis: Extensive bilateral pulmonary consolidation with poor aeration of the lung ortiz. Marked air and fluid distention of the entire colon with no gross evidence of obstruction. Markedly limited study as described above. ASSESSMENT/PLAN: 23 y/o M resident of [place] with PMHx of profound developmental delay, cerebral palsy, functional quadriplegia, non-interactive at baseline, reactive airway disease, seizure disorder was admitted for Acute hypoxic respiratory failure. 1. SIRS - WBC trending down, 8.9 yesterday, However Temp reached 101.1 - UA Negative - CXR today: Imaging reveals little change since 03/23/2018. Again noted is a scoliosis with spinal support rods, generalized abdominal distention with elevated right hemidiaphragm, chin artifact and no sign of infiltrate or failure. Correlation recommended. - Ordered Lasix 40mg one time dose - Continue Ceftriaxone day 4 - ID Consulted, appreciate rec's, Will need Cefotin 4 days and Vancomycin 7 days on discharge - Ordered chest PT 2. Abnormal Thyroid function tests - TSH and Free T4 high - Endocrine consulted, appreciate rec's - Continue Synthroid 25 mcg PO DAILY - Repeat Thyroid function tests in 4 to 6 weeks to adjust dose as necessary 3. Acute hypoxic respiratory failure - Tachypnic, Rhonchi improved - 88% Saturation did not improve on 5L via NC at [place] as per chart - Currently on 3L Nasal canulla, Sats > 93% - Continue Deep suctioning - Chest physio therapy - Frequent deep suctioning - Pulmonology consulted, appreciate rec's 4. Diarrhea - Suspected C. Diff, Stool was positive for C. Diff antigen on this visit - Pending C. Diff PCR - Hx of stool C.Diff antigen positive but toxin negative--given oral vancomycin in 08/2017 - Continue with Oral Vancomycin - GI Consulted, appreciate rec's 5. Hypokalemia - Resolved. Was Hyperkalemic (5.5) - Discontinue KCL 40meq PO TID 6. HyperNatremia - Increased Free water added to tube feed 7. Hypoglycemia - Improving on tube feeds - Continue BGM 8. Ileus - Seen on CT - PEG tube already in place to suction - Abdominal distension improved - Hypoactive bowel sounds - Tolerating Tube feed - GI Consulted, appreciate rec's 9. Acute transaminitis - Elevated LFTs may be part of the sepsis syndrome - Resolved - Abdominal Ultrasound reviewed - Hepatitis panel pending 10. Seizure disorder - Continue Keppra - Tonic/clonic contractions during exam today that self resolved - Facility says these are not new - Continue Phenobarbital 60 mg PEG DAILY 11. DVT ppx - Heparin 5000U TID SQ Dispo - likely D/C to [place] tomorrow Visit type - Emergency Visit Emergency Visit: Yes ED Registration Date: 03/09/18 Care time: The patient presented to the Emergency Department on the above date and was hospitalized for further evaluation of their emergent condition. - New Patient This patient is new to me today: No - Critical Care Critical Care patient: No
[2018-03-24] MEDS ORDERED: FUROSEMIDE 40 MG/4 ML INJECTABLE VIAL IVPUSH ONE (14:45)
[2018-03-24] MEDS: SCOPOLAMINE HYDROBROMIDE 1 PATCH PATCH.TD72 TD SCH ×2 (15:34→21:09)
--- NOTE | 2018-03-24 17:11 | PN ---
Progress Note (short form) - Note Progress Note: day #4 rocephin fever today looks comfortable no diarrhea Vital Signs Period Temp Pulse Resp BP Sys/Jay Pulse Ox Last 24 Hr 99.0 F-101.7 F 85-120 20-24 105-144/42-88 97-97 cor-rrr lungs decreased bs at bases abd soft,nt ext no edema CBC, BMP 03/23/18 06:00 03/24/18 09:17 Microbiology 03/19/18 18:00 Blood - Peripheral Venous Blood Culture - Preliminary NO GROWTH OBTAINED AFTER 96 HOURS, INCUBATION TO CONTINUE FOR 1 DAYS. 03/19/18 17:50 Blood - Peripheral Venous Blood Culture - Preliminary NO GROWTH OBTAINED AFTER 96 HOURS, INCUBATION TO CONTINUE FOR 1 DAYS. 03/21/18 17:30 Urine For Antigen Detection Legionella Antigen - Final 03/21/18 17:30 Urine For Antigen Detection Streptococcus pneumoniae Antigen (M - Final 03/08/18 23:11 Blood - Peripheral Venous Blood Culture - Final NO GROWTH AFTER 5 DAYS INCUBATION 03/08/18 23:11 Blood - Peripheral Venous Blood Culture - Final NO GROWTH AFTER 5 DAYS INCUBATION 03/11/18 13:33 Nares - Left Nares MRSA Screen - Final NO MRSA ISOLATED 03/08/18 23:11 Urine - Urine - Catheterized Urine Culture - Final NO GROWTH OBTAINED 03/09/18 02:41 Stool Clostridium difficile Antigen (CHLOÉ) - Final 03/09/18 02:41 Stool Clostridium difficile Toxin Assay - Final a/p fever today- d/w resident- more secretions noted day #4 ceftriaxone- if fevers persist, d/c ceftriaxone and reculture off antibiotics po vanco for one week past last dose of ceftriaxone
[2018-03-24] MEDS: MONTELUKAST NA 5 MG TAB.CHEW PO SCH (21:09)
[2018-03-25] MEDS: HEPARIN NA (PORCINE) 5,000 UNITS/ML 1ML VIAL SQ SCH ×3 (05:17→21:58)
[2018-03-25] MEDS: diazePAM 2 MG TABLET PO SCH ×3 (05:17→21:58)
[2018-03-25] MEDS: ACETAMINOPHEN 650 MG/20.3 ML ORAL SOLUTION (CUPS) PO PRN ×2 (05:18→13:26)
[2018-03-25] MEDS: LEVOTHYROXINE NA 25 MCG TABLET (FP) PO SCH (06:14)
[2018-03-25] MEDS: ALBUTEROL SO4 2.5/IPRATROPIUM 0.5 INH SOL 3 ML VIAL.NEB. NEB SCH ×4 (07:53→20:15)
[2018-03-25 07:58] LABS: BASO % 0.8 % (0-2.0); HEMOGLOBIN 11.4 GM/dL (11.7-16.9); LYMPH % 33.2 % (8-40); MCH 32.9 pg (25.7-33.7); MCHC 33.5 g/dl (32.0-35.9); MEAN CELL VOLUME 97.9 fl (80-96); MEAN PLT VOLUME 7.6 fl (7.5-11.1); MONO % 8.4 % (3.8-10.2); NEUT % 55.6 % (42.8-82.8); PLATELET COUNT 610 K/MM3 (134-434); RBC 3.47 M/mm3 (4.00-5.60); RDW 18.4 % (11.9-15.9); WHITE BLOOD COUNT 9.6 K/mm3 (4.0-10.0)
[2018-03-25 08:31] LABS: ANION GAP 11 (8-16); BLOOD UREA NITROGEN 14 mg/dL (7-18); CALCIUM 8.9 mg/dL (8.5-10.1); CHLORIDE 106 mmol/L (98-107); CO2 24 mmol/L (21-32); CREATININE 0.6 mg/dL (0.7-1.3); GLUCOSE,RANDOM 96 mg/dL (74-106); MAGNESIUM 1.9 mg/dL (1.8-2.4); PHOSPHOROUS 5.7 mg/dL (2.5-4.9); POTASSIUM 3.7 mmol/L (3.5-5.1); SODIUM 141 mmol/L (136-145)
[2018-03-25] MEDS: levETIRAcetam 500 MG/5 ML ORAL SOLUTION (UNIT-DOSE CUPS) PO SCH ×2 (09:55→21:58)
[2018-03-25] MEDS: AMINO ACIDS/PROTEIN HYDROLYS 30 ML LIQUID.PKT PO SCH (09:55)
[2018-03-25] MEDS: LYTES/YERBA SANTA 240 ML BOTTLE MM SCH (09:56)
[2018-03-25] MEDS: LORATADINE 10 MG TABLET PO SCH (09:56)
[2018-03-25] MEDS: GABAPENTIN 400 MG CAPSULE (FP) PO SCH ×2 (09:56→21:58)
[2018-03-25] MEDS: PHENobarbital 20 MG/5 ML UNIT-DOSE CUP PEG SCH (09:56)
[2018-03-25] MEDS: ZINC OXIDE 20% TOPICAL OINTMENT 30 GM TUBE TP SCH (09:56)
[2018-03-25] MEDS: LACOSAMIDE 50 MG TABLET PO SCH ×2 (09:56→21:58)
[2018-03-25] MEDS ORDERED: CEFTRIAXONE 1 GM in DEXTROSE 5%-WATER - 100 ML IVPB SCH (10:00)
--- NOTE | 2018-03-25 12:22 | PN ---
Progress Note, Physician History of Present Illness: pulmonary sleeping,-resp distress,febrile t 100.4 - Current Medication List Current Medications: Active Medications Acetaminophen (Tylenol Oral Solution -) 650 mg PO Q6H PRN PRN Reason: FEVER Last Admin: 03/25/18 05:18 Dose: 650 mg Albuterol Sulfate (Ventolin 0.083% Nebulizer Soln -) 1 amp NEB Q3H PRN PRN Reason: SHORT OF BREATH/WHEEZING Albuterol/Ipratropium (Duoneb -) 1 amp NEB RQID [facility] Last Admin: 03/25/18 07:53 Dose: 1 amp Amino Acids (Prosource No Carb Liquid Pkt) 30 ml PO DAILY@0800 [facility] Last Admin: 03/25/18 09:55 Dose: 30 ml Diazepam (Valium -) 2 mg PO TID [facility] Last Admin: 03/25/18 05:17 Dose: 2 mg Gabapentin (Neurontin -) 400 mg PO BID [facility] Last Admin: 03/25/18 09:56 Dose: 400 mg Heparin Sodium (Porcine) (Heparin -) 5,000 unit SQ TID [facility] Last Admin: 03/25/18 05:17 Dose: 5,000 unit Lacosamide (Vimpat -) 50 mg PO BID [facility] Last Admin: 03/25/18 09:56 Dose: 50 mg Levetiracetam (Keppra Oral Solution -) 1,500 mg PO DAILY [facility] Last Admin: 03/25/18 09:55 Dose: 1,500 mg Levetiracetam (Keppra Oral Solution -) 1,750 mg PO [facility] Last Admin: 03/24/18 21:09 Dose: 1,750 mg Levothyroxine Sodium (Synthroid -) 25 mcg PO DAILY@0700 [facility] Last Admin: 03/25/18 06:14 Dose: 25 mcg Loratadine (Claritin -) 10 mg PO DAILY [facility] Last Admin: 03/25/18 09:56 Dose: 10 mg Montelukast Sodium (Singulair -) 5 mg PO HS [facility] Last Admin: 03/24/18 21:09 Dose: 5 mg Multi-Ingredient Ointment (Zinc Oxide) 1 applic TP BID [facility] Last Admin: 03/25/18 09:56 Dose: 1 applic Phenobarbital (Phenobarbital Liquid -) 60 mg PEG DAILY [facility] Last Admin: 03/25/18 09:56 Dose: 60 mg Saliva Substitute (Mouthkote Solution -) 1 applic MM DAILY [facility] Last Admin: 03/25/18 09:56 Dose: 1 applic Scopolamine HBr (Transderm-Scop -) 1 patch TD Q72H [facility] Last Admin: 03/24/18 21:09 Dose: 1 patch - Objective Vital Signs: Vital Signs Temperature 100.4 F H 03/25/18 11:05 Pulse Rate 85 03/25/18 11:05 Respiratory Rate 20 03/25/18 11:05 Blood Pressure 129/71 03/25/18 11:05 O2 Sat by Pulse Oximetry (%) 96 03/24/18 21:54 Constitutional: Yes: Thin, Other (sleeping) Eyes: Yes: WNL HENT: Yes: WNL Neck: Yes: WNL Cardiovascular: Yes: Regular Rate and Rhythm, S1, S2 Respiratory: Yes: Rhonchi (scattered maribeth rhonchi) Gastrointestinal: Yes: Normal Bowel Sounds, Soft Extremities: Yes: WNL Edema: No Labs: CBC, BMP 03/25/18 07:40 03/25/18 07:40 INR, PTT INR 1.58 (0.82-1.09) H 03/10/18 05:30 Problem List - Problems (1) Abdominal distention Code(s): R14.0 - ABDOMINAL DISTENSION (GASEOUS) (2) Elevated LFTs Code(s): R94.5 - ABNORMAL RESULTS OF LIVER FUNCTION STUDIES (3) Pneumonia Code(s): J18.9 - PNEUMONIA, UNSPECIFIED ORGANISM (4) Respiratory distress Code(s): R06.03 - ACUTE RESPIRATORY DISTRESS (5) Seizure disorder Code(s): G40.909 - EPILEPSY, UNSP, NOT INTRACTABLE, WITHOUT STATUS EPILEPTICUS (6) Sepsis Code(s): A41.9 - SEPSIS, UNSPECIFIED ORGANISM Qualifiers: Sepsis type: sepsis due to unspecified organism Qualified Code(s): A41.9 - Sepsis, unspecified organism Assessment/Plan ASSESSMENT AND PLAN: Acute Hypoxic Respiratory Failure Pneumonia likely Aspiration Severe Sepsis resolving Elevated LFTs improved Abdominal Distention/Constipation Seizure Disorder Mental Retardation - antibiotics as per id - aspiration precautions - O2 to keep SpO2 >90% - antiepileptics - DVT prophylaxis - inhaled bronchodilators DR MARTÍNEZ
--- NOTE | 2018-03-25 12:37 | PN ---
Physical Exam: SUBJECTIVE: Patient seen and examined at bedside this morning. Patient was not drooling as much as yesterday. As per nursing, patient had a few loose BMs overnight, Continued to have tonic clonic movements overnight. No other acute events over night. OBJECTIVE: Vital Signs Period Temp Pulse Resp BP Sys/Jay Pulse Ox Last 24 Hr 99.8 F-101.7 F 64-112 20-24 81-131/40-98 94-97 GENERAL: Nonverbal, No acute distress LUNGS: Rhonchi heard throughout, 4L via Nasal canula HEART: Regular rate and rhythm, S1, S2 without murmur, rub or gallop. ABDOMEN: Soft, Distended, Hypoactive bowel sounds, PEG tube present in LUQ : [place] catheter present draining yellow urine EXTREMITIES: Upper extremities Contracted B/L, tremors and contractions in all extremities that self resolve Laboratory Results - last 24 hr 03/18/18 03/25/18 03/25/18 07:15 07:40 07:40 WBC 9.6 RBC 3.47 L Hgb 11.4 L Hct 34.0 L D MCV 97.9 H MCH 32.9 MCHC 33.5 RDW 18.4 H Plt Count 610 H D MPV 7.6 Absolute Neuts (auto) 5.3 Neutrophils % 55.6 Lymphocytes % 33.2 Monocytes % 8.4 Eosinophils % 2.0 Basophils % 0.8 Nucleated RBC % 0 Sodium 141 Potassium 3.7 Chloride 106 Carbon Dioxide 24 Anion Gap 11 BUN 14 Creatinine 0.6 L Creat Clearance w eGFR > 60 Random Glucose 96 Calcium 8.9 Phosphorus 5.7 H Magnesium 1.9 Free T4 (Dialysis) 1.5 Active Medications Acetaminophen (Tylenol Oral Solution -) 650 mg PO Q6H PRN PRN Reason: FEVER Last Admin: 03/25/18 05:18 Dose: 650 mg Albuterol Sulfate (Ventolin 0.083% Nebulizer Soln -) 1 amp NEB Q3H PRN PRN Reason: SHORT OF BREATH/WHEEZING Albuterol/Ipratropium (Duoneb -) 1 amp NEB RQID [facility] Last Admin: 03/25/18 07:53 Dose: 1 amp Amino Acids (Prosource No Carb Liquid Pkt) 30 ml PO DAILY@0800 [facility] Last Admin: 03/25/18 09:55 Dose: 30 ml Diazepam (Valium -) 2 mg PO TID [facility] Last Admin: 03/25/18 05:17 Dose: 2 mg Gabapentin (Neurontin -) 400 mg PO BID [facility] Last Admin: 03/25/18 09:56 Dose: 400 mg Heparin Sodium (Porcine) (Heparin -) 5,000 unit SQ TID [facility] Last Admin: 03/25/18 05:17 Dose: 5,000 unit Lacosamide (Vimpat -) 50 mg PO BID [facility] Last Admin: 03/25/18 09:56 Dose: 50 mg Levetiracetam (Keppra Oral Solution -) 1,500 mg PO DAILY [facility] Last Admin: 03/25/18 09:55 Dose: 1,500 mg Levetiracetam (Keppra Oral Solution -) 1,750 mg PO HS [facility] Last Admin: 03/24/18 21:09 Dose: 1,750 mg Levothyroxine Sodium (Synthroid -) 25 mcg PO DAILY@0700 [facility] Last Admin: 03/25/18 06:14 Dose: 25 mcg Loratadine (Claritin -) 10 mg PO DAILY [facility] Last Admin: 03/25/18 09:56 Dose: 10 mg Montelukast Sodium (Singulair -) 5 mg PO HS [facility] Last Admin: 03/24/18 21:09 Dose: 5 mg Multi-Ingredient Ointment (Zinc Oxide) 1 applic TP BID [facility] Last Admin: 03/25/18 09:56 Dose: 1 applic Phenobarbital (Phenobarbital Liquid -) 60 mg PEG DAILY [facility] Last Admin: 03/25/18 09:56 Dose: 60 mg Saliva Substitute (Mouthkote Solution -) 1 applic MM DAILY [facility] Last Admin: 03/25/18 09:56 Dose: 1 applic Scopolamine HBr (Transderm-Scop -) 1 patch TD Q72H [facility] Last Admin: 03/24/18 21:09 Dose: 1 patch IMAGING - CXR: Imaging reveals scoliosis with extensive spinal support rods, weak inspiration with bilateral effusions, infiltrates and large heart. There is abdominal distention which is quite diffuse. The bones and soft tissues are intact. - CT Abdomen Pelvis: Extensive bilateral pulmonary consolidation with poor aeration of the lung ortiz. Marked air and fluid distention of the entire colon with no gross evidence of obstruction. Markedly limited study as described above. ASSESSMENT/PLAN: 23 y/o M resident of [place] with PMHx of profound developmental delay, cerebral palsy, functional quadriplegia, non-interactive at baseline, reactive airway disease, seizure disorder was admitted for Acute hypoxic respiratory failure. 1. SIRS - Temp reached 101.7 over night and 100.4 this morning - CXR (03/24): Imaging reveals little change since 03/23/2018. Again noted is a scoliosis with spinal support rods, generalized abdominal distention with elevated right hemidiaphragm, chin artifact and no sign of infiltrate or failure. Correlation recommended. - Lasix 40mg one time dose (03/24) - Completed Ceftriaxone day 5 - ABx discontinued, culture off of abx - ID Consulted, appreciate rec's, Will need Cefotin 4 days and Vancomycin 7 days on discharge - Continue chest PT - Ordered Blood cultures, Urine cultures, sputum cultures, UA 2. Abnormal Thyroid function tests - TSH and Free T4 high - Endocrine consulted, appreciate rec's - Continue Synthroid 25 mcg PO DAILY - Repeat Thyroid function tests in 4 to 6 weeks to adjust dose as necessary 3. Acute hypoxic respiratory failure - Tachypnic, Rhonchi improved - 88% Saturation did not improve on 5L via NC at [place] as per chart - Continue Deep suctioning - Chest physio therapy - Frequent deep suctioning - Pulmonology consulted, appreciate rec's 4. Diarrhea - Suspected C. Diff, Stool was positive for C. Diff antigen on this visit - Pending C. Diff PCR - Hx of stool C.Diff antigen positive but toxin negative--given oral vancomycin in 08/2017 - Continue with Oral Vancomycin - GI Consulted, appreciate rec's 5. Hypokalemia - Resolved. Was Hyperkalemic (5.5) - Discontinue KCL 40meq PO TID 6. HyperNatremia - Increased Free water added to tube feed 7. Hypoglycemia - Improving on tube feeds - Continue BGM 8. Ileus - Seen on CT - PEG tube already in place to suction - Abdominal distension improved - Hypoactive bowel sounds - Tolerating Tube feed - GI Consulted, appreciate rec's 9. Acute transaminitis - Elevated LFTs may be part of the sepsis syndrome - Resolved - Abdominal Ultrasound reviewed - Hepatitis panel pending 10. Seizure disorder - Continue Keppra - Tonic/clonic contractions during exam today that self resolved - Facility says these are not new - Continue Phenobarbital 60 mg PEG DAILY 11. DVT ppx - Heparin 5000U TID SQ Dispo - likely D/C to [place] tomorrow Visit type - Emergency Visit Emergency Visit: Yes ED Registration Date: 03/09/18 Care time: The patient presented to the Emergency Department on the above date and was hospitalized for further evaluation of their emergent condition. - New Patient This patient is new to me today: No - Critical Care Critical Care patient: No
--- NOTE | 2018-03-25 14:38 | PN ---
Teaching Attending Note Name of Resident: Maddie Clark ATTENDING PHYSICIAN STATEMENT I saw and evaluated the patient. I reviewed the resident's note and discussed the case with the resident. I agree with the resident's findings and plan as documented. SUBJECTIVE:resting comfortable was noted by RN to have tonic clonic movements last night. also had fever OBJECTIVE: Last Vital Signs Temp Pulse Resp BP Pulse Ox 100.4 F H 85 20 129/71 96 03/25/18 11:05 03/25/18 11:05 03/25/18 11:05 03/25/18 11:05 03/25/18 10:00 General NAD, CV S1 S2 RRR no murmur/rub/gallop lungs CTA B/L anteriorly Abdomen soft. +dull to percussion, hypoactive BS +PEG LUQ in place. no drainage of bleeding noted Extremities contracted extremities ASSESSMENT AND PLAN: 23yo M from [place] with PMH cerebral palsy, mental retardation, functional quadriplegia was sent to the ER with acute hypoxic respiratory failure. was found to be 88% on RA which did not improve with nasal cannula and sent to the hospital. 1. Acute hypoxic respiratory failure- likely due to B/L PNA and developing congestion. clinically some improvement on exam after lasix given yesterday. will hold for today. concern pt may be aspirating causing re-infections. ensure HOB is elevated >45degrees, cont with deep suctioning. as per RN no thick secretions noted today. chest PT. aspiration precautions. currently saturating 97% on RA.pulmonary on board 2. Severe sepsis due to B/L PNA and suspected cdiff- concern for repeated aspirations. multiple fevers yesterday. Tm 101.7. will d/c all abx and cx off abx. CXR done yesterday so will not repeat at this time. ID on board. 4. Seizure-episode last night liekly related to fevers. cont current medications. seizure precautions. 5. Hypothyroid- started on Lt4 this hospital stay. will need repeat TSH in 6 weeks 6. Elevated LFT- likely due to severe sepsis. u/s showing fatty infiltration of liver. resolved 7. hyperkalemia- resolved 8. hypernatremia- resolved. cont free water flushes to 40cc/H 9. hypoglycemia- improved. 10. ileus- seen on CT. appear may be more chronic. tolerating TF. GI on board 11. MR 12. CP 13. DVT ppx- hep sq
[2018-03-25 14:47] LABS: URINE APPEARANCE CLOUDY; URINE BILIRUBIN NEGATIVE (<2.0 mg/dL); URINE COLOR YELLOW; URINE GLUCOSE (UA) NEGATIVE (NEGATIVE); URINE KETONE NEGATIVE (NEGATIVE); URINE NITRITE NEGATIVE (NEGATIVE); URINE PROTEIN NEGATIVE (NEGATIVE); URINE UROBILINOGEN NEGATIVE mg/dL (0.2-1.0)
[2018-03-25 14:48] LABS: URINE LEUK ESTERASE 3+ (NEGATIVE)
[2018-03-25 16:11] LABS: EPI CELLS RARE /HPF (FEW); URINE HYALINE CAST 3 /lpf; URINE MUCUS RARE; YEAST MANY
[2018-03-25] MEDS ORDERED: ACETAMINOPHEN 1000 MG/100 ML VIAL (NON FORMULARY) IVPB ONE ×2 (18:29→19:00)
--- NOTE | 2018-03-25 18:35 | PN ---
Progress Note (short form) - Note Progress Note: persistent fevers since yesterday soft bms no diarrhea no vomiting Vital Signs Period Temp Pulse Resp BP Sys/Jay Pulse Ox Last 24 Hr 99.8 F-101.4 F 64-104 20-24 88-131/45-98 94-96 cor-rrr lungs clear abd soft,nt ext no edema CBC, BMP 03/25/18 07:40 03/25/18 07:40 cultures sent Microbiology 03/19/18 18:00 Blood - Peripheral Venous Blood Culture - Final NO GROWTH AFTER 5 DAYS INCUBATION 03/19/18 17:50 Blood - Peripheral Venous Blood Culture - Final NO GROWTH AFTER 5 DAYS INCUBATION 03/21/18 17:30 Urine For Antigen Detection Legionella Antigen - Final 03/21/18 17:30 Urine For Antigen Detection Streptococcus pneumoniae Antigen (M - Final 03/08/18 23:11 Blood - Peripheral Venous Blood Culture - Final NO GROWTH AFTER 5 DAYS INCUBATION 03/08/18 23:11 Blood - Peripheral Venous Blood Culture - Final NO GROWTH AFTER 5 DAYS INCUBATION 03/11/18 13:33 Nares - Left Nares MRSA Screen - Final NO MRSA ISOLATED 03/08/18 23:11 Urine - Urine - Catheterized Urine Culture - Final NO GROWTH OBTAINED 03/09/18 02:41 Stool Clostridium difficile Antigen (CHLOÉ) - Final 03/09/18 02:41 Stool Clostridium difficile Toxin Assay - Final a/p fevers persist-hemodynamically stable agree with d/c antibiotics and reculture cxray yesterday clear recent ct scan noted chest/abd/pelvis
[2018-03-25] MEDS ORDERED: PT OWN MED DRAWER 7, Y5N ONE (21:55)
[2018-03-25] MEDS: MONTELUKAST NA 5 MG TAB.CHEW PO SCH (21:59)
[2018-03-26] MEDS: ZINC OXIDE 20% TOPICAL OINTMENT 30 GM TUBE TP SCH ×3 (00:07→22:36)
[2018-03-26] MEDS: ACETAMINOPHEN 650 MG/20.3 ML ORAL SOLUTION (CUPS) PO PRN ×2 (01:06→13:15)
--- NOTE | 2018-03-26 05:37 | PN ---
Physical Exam: SUBJECTIVE: Patient seen and examined this morning at bedside. No overnight acute events as per nursing. OBJECTIVE: Vital Signs Period Temp Pulse Resp BP Sys/Jay Pulse Ox Last 24 Hr 98.3 F-101.4 F 85-102 18-20 90-129/53-74 96-99 GENERAL: Nonverbal, No acute distress LUNGS: Rhonchi heard throughout, 5L via Nasal canula HEART: Regular rate and rhythm, S1, S2 without murmur, rub or gallop. ABDOMEN: Soft, Distended, Hypoactive bowel sounds, PEG tube present in LUQ : [place] catheter present draining yellow urine EXTREMITIES: Upper extremities Contracted B/L, tremors and contractions in all extremities that self resolve Laboratory Results - last 24 hr 03/18/18 03/25/18 03/25/18 07:15 07:40 07:40 WBC 9.6 RBC 3.47 L Hgb 11.4 L Hct 34.0 L D MCV 97.9 H MCH 32.9 MCHC 33.5 RDW 18.4 H Plt Count 610 H D MPV 7.6 Absolute Neuts (auto) 5.3 Neutrophils % 55.6 Lymphocytes % 33.2 Monocytes % 8.4 Eosinophils % 2.0 Basophils % 0.8 Nucleated RBC % 0 Sodium 141 Potassium 3.7 Chloride 106 Carbon Dioxide 24 Anion Gap 11 BUN 14 Creatinine 0.6 L Creat Clearance w eGFR > 60 Random Glucose 96 Calcium 8.9 Phosphorus 5.7 H Magnesium 1.9 Free T4 (Dialysis) 1.5 Urine Color Urine Appearance Urine pH Ur Specific [place] Urine Protein Urine Glucose (UA) Urine Ketones Urine Blood Urine Nitrite Urine Bilirubin Urine Urobilinogen Ur Leukocyte Esterase Urine WBC (Auto) Urine RBC (Auto) Ur Epithelial Cells Hyaline Casts Urine Mucus Urine Yeast 03/25/18 13:15 WBC RBC Hgb Hct MCV MCH MCHC RDW Plt Count MPV Absolute Neuts (auto) Neutrophils % Lymphocytes % Monocytes % Eosinophils % Basophils % Nucleated RBC % Sodium Potassium Chloride Carbon Dioxide Anion Gap BUN Creatinine Creat Clearance w eGFR Random Glucose Calcium Phosphorus Magnesium Free T4 (Dialysis) Urine Color Yellow Urine Appearance Cloudy Urine pH 6.0 Ur Specific [place] 1.015 Urine Protein Negative Urine Glucose (UA) Negative Urine Ketones Negative Urine Blood Negative Urine Nitrite Negative Urine Bilirubin Negative Urine Urobilinogen Negative Ur Leukocyte Esterase 3+ H Urine WBC (Auto) 23 Urine RBC (Auto) 25 Ur Epithelial Cells Rare Hyaline Casts 3 Urine Mucus Rare Urine Yeast Many Active Medications Acetaminophen (Tylenol Oral Solution -) 650 mg PO Q6H PRN PRN Reason: FEVER Last Admin: 03/26/18 01:06 Dose: 650 mg Albuterol Sulfate (Ventolin 0.083% Nebulizer Soln -) 1 amp NEB Q3H PRN PRN Reason: SHORT OF BREATH/WHEEZING Albuterol/Ipratropium (Duoneb -) 1 amp NEB RQID [facility] Last Admin: 03/26/18 15:21 Dose: 1 amp Amino Acids (Prosource No Carb Liquid Pkt) 30 ml PO DAILY@0800 [facility] Last Admin: 03/26/18 08:03 Dose: 30 ml Diazepam (Valium -) 2 mg PO TID [facility] Last Admin: 03/26/18 13:35 Dose: 2 mg Gabapentin (Neurontin -) 400 mg PO BID [facility] Last Admin: 03/26/18 10:03 Dose: 400 mg Heparin Sodium (Porcine) (Heparin -) 5,000 unit SQ TID [facility] Last Admin: 03/26/18 13:35 Dose: 5,000 unit Levofloxacin (Levaquin 500 Mg Premixed Ivpb -) 500 mg in 100 mls @ 100 mls/hr IVPB DAILY [facility]; Protocol Lacosamide (Vimpat -) 50 mg PO BID [facility] Last Admin: 03/26/18 10:03 Dose: 50 mg Levetiracetam (Keppra Oral Solution -) 1,500 mg PO DAILY [facility] Last Admin: 03/26/18 10:04 Dose: 1,500 mg Levetiracetam (Keppra Oral Solution -) 1,750 mg PO [facility] Last Admin: 03/25/18 21:58 Dose: 1,750 mg Levothyroxine Sodium (Synthroid -) 25 mcg PO DAILY@0700 [facility] Last Admin: 03/26/18 06:19 Dose: 25 mcg Loratadine (Claritin -) 10 mg PO DAILY [facility] Last Admin: 03/26/18 10:03 Dose: 10 mg Montelukast Sodium (Singulair -) 5 mg PO [facility] Last Admin: 03/25/18 21:59 Dose: 5 mg Multi-Ingredient Ointment (Zinc Oxide) 1 applic TP BID [facility] Last Admin: 03/26/18 10:04 Dose: 1 applic Phenobarbital (Phenobarbital Liquid -) 60 mg PEG DAILY [facility] Last Admin: 03/26/18 10:03 Dose: 60 mg Saliva Substitute (Mouthkote Solution -) 1 applic MM DAILY [facility] Last Admin: 03/26/18 10:04 Dose: 1 applic Scopolamine HBr (Transderm-Scop -) 1 patch TD Q72H [facility] Last Admin: 03/24/18 21:09 Dose: 1 patch IMAGING - CXR: Imaging reveals scoliosis with extensive spinal support rods, weak inspiration with bilateral effusions, infiltrates and large heart. There is abdominal distention which is quite diffuse. The bones and soft tissues are intact. - CT Abdomen Pelvis: Extensive bilateral pulmonary consolidation with poor aeration of the lung ortiz. Marked air and fluid distention of the entire colon with no gross evidence of obstruction. Markedly limited study as described above. - CXR (03/24): Imaging reveals little change since 03/23/2018. Again noted is a scoliosis with spinal support rods, generalized abdominal distention with elevated right hemidiaphragm, chin artifact and no sign of infiltrate or failure. Correlation recommended. ASSESSMENT/PLAN: 23 y/o M resident of [place] with PMHx of profound developmental delay, cerebral palsy, functional quadriplegia, non-interactive at baseline, reactive airway disease, seizure disorder was admitted for Acute hypoxic respiratory failure. 1. UTI - Temp reached 101.4 over night - UA: 3+ Leukocyte esterase, 23 WBC - Completed Ceftriaxone day 5 - ABx discontinued, Panculture off of abx - Started Levaquin 500 mg DAILY 2. Abnormal Thyroid function tests - TSH and Free T4 high - Endocrine consulted, appreciate rec's - Continue Synthroid 25 mcg PO DAILY - Repeat Thyroid function tests in 4 to 6 weeks to adjust dose as necessary 3. Acute hypoxic respiratory failure - Tachypnic, Rhonchi improved - 88% Saturation did not improve on 5L via MT at [place] as per chart - Continue Deep suctioning - Chest physio therapy - Frequent deep suctioning - Pulmonology consulted, appreciate rec's - ID Consulted, appreciate rec's, Will need Cefotin 4 days and Vancomycin 7 days on discharge - Lasix 40mg one time dose (03/24) 4. Diarrhea - Suspected C. Diff, Stool was positive for C. Diff antigen on this visit - Pending C. Diff PCR - Hx of stool C.Diff antigen positive but toxin negative--given oral vancomycin in 08/2017 - Continue with Oral Vancomycin - GI Consulted, appreciate rec's 5. Hypokalemia - Resolved. Was Hyperkalemic (5.5) - Discontinue KCL 40meq PO TID 6. HyperNatremia - Increased Free water added to tube feed 7. Hypoglycemia - Improving on tube feeds - Continue BGM 8. Ileus - Seen on CT - PEG tube already in place to suction - Abdominal distension improved - Hypoactive bowel sounds - Tolerating Tube feed - GI Consulted, appreciate rec's 9. Acute transaminitis - Elevated LFTs may be part of the sepsis syndrome - Resolved - Abdominal Ultrasound reviewed - Hepatitis panel pending 10. Seizure disorder - Continue Keppra - Tonic/clonic contractions during exam today that self resolved - Facility says these are not new - Continue Phenobarbital 60 mg PEG DAILY 11. DVT ppx - Heparin 5000U TID SQ Dispo - likely D/C to [place] when fevers resolve Visit type - Emergency Visit Emergency Visit: Yes ED Registration Date: 03/09/18 Care time: The patient presented to the Emergency Department on the above date and was hospitalized for further evaluation of their emergent condition. - New Patient This patient is new to me today: No - Critical Care Critical Care patient: No
[2018-03-26] MEDS: diazePAM 2 MG TABLET PO SCH ×3 (06:19→22:34)
[2018-03-26] MEDS: LEVOTHYROXINE NA 25 MCG TABLET (FP) PO SCH (06:19)
[2018-03-26] MEDS: HEPARIN NA (PORCINE) 5,000 UNITS/ML 1ML VIAL SQ SCH ×3 (06:20→22:35)
[2018-03-26] MEDS: AMINO ACIDS/PROTEIN HYDROLYS 30 ML LIQUID.PKT PO SCH (08:03)
[2018-03-26 08:21] LABS: EOS % 2.4 % (0-4.5); HEMATOCRIT 33.7 % (35.4-49); HEMOGLOBIN 11.4 GM/dL (11.7-16.9); LYMPH % 32.7 % (8-40); MCH 32.9 pg (25.7-33.7); MCHC 33.9 g/dl (32.0-35.9); MEAN CELL VOLUME 97.3 fl (80-96); MEAN PLT VOLUME 8.6 fl (7.5-11.1); MONO % 7.9 % (3.8-10.2); PLATELET COUNT 647 K/MM3 (134-434); RBC 3.47 M/mm3 (4.00-5.60); RDW 17.8 % (11.9-15.9); WHITE BLOOD COUNT 11.5 K/mm3 (4.0-10.0)
[2018-03-26 08:25] LABS: CHLORIDE 107 mmol/L (98-107); POTASSIUM 3.3 mmol/L (3.5-5.1); SODIUM 143 mmol/L (136-145)
[2018-03-26] MEDS: ALBUTEROL SO4 2.5/IPRATROPIUM 0.5 INH SOL 3 ML VIAL.NEB. NEB SCH ×4 (08:35→21:09)
[2018-03-26 08:38] LABS: ALBUMIN 3.8 g/dl (3.4-5.0); ALK PHOS 236 U/L (45-117); ANION GAP 12 (8-16); BILIRUBIN,TOTAL 0.5 mg/dL (0.2-1.0); BLOOD UREA NITROGEN 13 mg/dL (7-18); CO2 24 mmol/L (21-32); CREATININE 0.5 mg/dL (0.7-1.3); GLUCOSE,RANDOM 91 mg/dL (74-106); PHOSPHOROUS 4.6 mg/dL (2.5-4.9); SGOT/AST 31 U/L (15-37); SGPT/ALT 60 U/L (12-78); TOT PROT 8.1 g/dl (6.4-8.2)
[2018-03-26] MEDS: LORATADINE 10 MG TABLET PO SCH (10:03)
[2018-03-26] MEDS: GABAPENTIN 400 MG CAPSULE (FP) PO SCH ×2 (10:03→22:34)
[2018-03-26] MEDS: LACOSAMIDE 50 MG TABLET PO SCH ×2 (10:03→22:34)
[2018-03-26] MEDS: PHENobarbital 20 MG/5 ML UNIT-DOSE CUP PEG SCH (10:03)
[2018-03-26] MEDS: levETIRAcetam 500 MG/5 ML ORAL SOLUTION (UNIT-DOSE CUPS) PO SCH ×2 (10:04→22:34)
[2018-03-26] MEDS: LYTES/YERBA SANTA 240 ML BOTTLE MM SCH (10:04)
[2018-03-26] MEDS ORDERED: ALBUTEROL SO4 0.5 % INH SOLN 2.5 MG/0.5 ML VIAL.NEB. NEB ONE (11:20)
[2018-03-26] MEDS ORDERED: POTASSIUM CHLORIDE ORAL LIQUID 20 MEQ/15 ML GT ONE (11:30)
--- NOTE | 2018-03-26 12:10 | PN ---
Progress Note, Physician History of Present Illness: PULMONARY NO DISTRESS,-TACHYPNEA,LESS CONGESTED.T-MAX 100.6 - Current Medication List Current Medications: Active Medications Acetaminophen (Tylenol Oral Solution -) 650 mg PO Q6H PRN PRN Reason: FEVER Last Admin: 03/26/18 01:06 Dose: 650 mg Albuterol Sulfate (Ventolin 0.083% Nebulizer Soln -) 1 amp NEB Q3H PRN PRN Reason: SHORT OF BREATH/WHEEZING Albuterol/Ipratropium (Duoneb -) 1 amp NEB RQID [facility] Last Admin: 03/26/18 11:45 Dose: 1 amp Amino Acids (Prosource No Carb Liquid Pkt) 30 ml PO DAILY@0800 [facility] Last Admin: 03/26/18 08:03 Dose: 30 ml Diazepam (Valium -) 2 mg PO TID [facility] Last Admin: 03/26/18 06:19 Dose: 2 mg Gabapentin (Neurontin -) 400 mg PO BID [facility] Last Admin: 03/26/18 10:03 Dose: 400 mg Heparin Sodium (Porcine) (Heparin -) 5,000 unit SQ TID [facility] Last Admin: 03/26/18 06:20 Dose: 5,000 unit Levofloxacin (Levaquin 500 Mg Premixed Ivpb -) 500 mg in 100 mls @ 100 mls/hr IVPB ONCE [facility]; Protocol Stop: 03/26/18 12:44 Lacosamide (Vimpat -) 50 mg PO BID [facility] Last Admin: 03/26/18 10:03 Dose: 50 mg Levetiracetam (Keppra Oral Solution -) 1,500 mg PO DAILY [facility] Last Admin: 03/26/18 10:04 Dose: 1,500 mg Levetiracetam (Keppra Oral Solution -) 1,750 mg PO [facility] Last Admin: 03/25/18 21:58 Dose: 1,750 mg Levothyroxine Sodium (Synthroid -) 25 mcg PO DAILY@0700 [facility] Last Admin: 03/26/18 06:19 Dose: 25 mcg Loratadine (Claritin -) 10 mg PO DAILY [facility] Last Admin: 03/26/18 10:03 Dose: 10 mg Montelukast Sodium (Singulair -) 5 mg PO HS [facility] Last Admin: 03/25/18 21:59 Dose: 5 mg Multi-Ingredient Ointment (Zinc Oxide) 1 applic TP BID [facility] Last Admin: 03/26/18 10:04 Dose: 1 applic Phenobarbital (Phenobarbital Liquid -) 60 mg PEG DAILY [facility] Last Admin: 03/26/18 10:03 Dose: 60 mg Saliva Substitute (Mouthkote Solution -) 1 applic MM DAILY [facility] Last Admin: 03/26/18 10:04 Dose: 1 applic Scopolamine HBr (Transderm-Scop -) 1 patch TD Q72H [facility] Last Admin: 03/24/18 21:09 Dose: 1 patch - Objective Vital Signs: Vital Signs Temperature 100.6 F H 03/26/18 06:00 Pulse Rate 91 H 03/26/18 06:00 Respiratory Rate 20 03/26/18 06:00 Blood Pressure 95/71 03/26/18 06:00 O2 Sat by Pulse Oximetry (%) 99 03/25/18 21:00 Constitutional: Yes: Calm, Thin Eyes: Yes: WNL HENT: Yes: WNL Neck: Yes: WNL Cardiovascular: Yes: Regular Rate and Rhythm Respiratory: Yes: Rhonchi (LESS RHONCHI) Gastrointestinal: Yes: Normal Bowel Sounds, Soft Extremities: Yes: Shortened Edema: No Labs: CBC, BMP 03/26/18 06:15 03/26/18 06:15 INR, PTT INR 1.58 (0.82-1.09) H 03/10/18 05:30 Problem List - Problems (1) Abdominal distention Code(s): R14.0 - ABDOMINAL DISTENSION (GASEOUS) (2) Elevated LFTs Code(s): R94.5 - ABNORMAL RESULTS OF LIVER FUNCTION STUDIES (3) Pneumonia Code(s): J18.9 - PNEUMONIA, UNSPECIFIED ORGANISM (4) Respiratory distress Code(s): R06.03 - ACUTE RESPIRATORY DISTRESS (5) Seizure disorder Code(s): G40.909 - EPILEPSY, UNSP, NOT INTRACTABLE, WITHOUT STATUS EPILEPTICUS (6) Sepsis Code(s): A41.9 - SEPSIS, UNSPECIFIED ORGANISM Qualifiers: Sepsis type: sepsis due to unspecified organism Qualified Code(s): A41.9 - Sepsis, unspecified organism Assessment/Plan ASSESSMENT AND PLAN: Acute Hypoxic Respiratory Failure Pneumonia likely Aspiration Severe Sepsis resolving Elevated LFTs improved Abdominal Distention/Constipation Seizure Disorder Mental Retardation - antibiotics as per id - aspiration precautions - O2 to keep SpO2 >90% - antiepileptics - DVT prophylaxis - inhaled bronchodilators DR MARTÍNEZ
--- NOTE | 2018-03-26 12:59 | PN ---
Teaching Attending Note Name of Resident: Maddie Clark ATTENDING PHYSICIAN STATEMENT I saw and evaluated the patient. I reviewed the resident's note and discussed the case with the resident. I agree with the resident's findings and plan as documented. SUBJECTIVE:resting comfortable Seizure like activity noted this morning. pt was given tylenol OBJECTIVE: Last Vital Signs Temp Pulse Resp BP Pulse Ox 100.6 F H 91 H 20 95/71 99 03/26/18 06:00 03/26/18 06:00 03/26/18 06:00 03/26/18 06:00 03/26/18 10:00 General NAD, CV S1 S2 RRR no murmur/rub/gallop lungs CTA B/L anteriorly Abdomen soft. +dull to percussion, hypoactive BS +PEG LUQ in place. no drainage of bleeding noted Extremities contracted extremities ASSESSMENT AND PLAN: 23yo M from [place] with PMH cerebral palsy, mental retardation, functional quadriplegia was sent to the ER with acute hypoxic respiratory failure. was found to be 88% on RA which did not improve with nasal cannula and sent to the hospital. 1. Acute hypoxic respiratory failure- likely due to B/L PNA and developing congestion. clinically improved., intermittently requiring supplemental oxygen. secretions are no longer thick. ensure HOB is elevated >45degrees, cont with deep suctioning. chest PT. aspiration precautions. currently saturating 97% on RA.pulmonary on board 2. UTI- Tm 101.4 UA + start on levaquin as was having fevers on ceftriaxone. [place] catheter in place. ID on board. 3. cdiff- intermittent loose stools. will cont vanco po x7days 4. Severe sepsis due to aspiration PNA- completed course of abx. repeat CXr clear 5. Seizure-episode last night liekly related to fevers. cont current medications. seizure precautions. 6. Hypothyroid- started on Lt4 this hospital stay. will need repeat TSH in 6 weeks 7. Elevated LFT- likely due to severe sepsis. u/s showing fatty infiltration of liver. resolved 8. hyperkalemia- now low. will replete 9. hypernatremia- resolved. cont free water flushes to 40cc/H 10. hypoglycemia- improved. 11. ileus- seen on CT. appear may be more chronic. tolerating TF. GI on board 12. MR 13. CP 14. DVT ppx- hep sq
--- NOTE | 2018-03-26 17:45 | PN ---
Progress Note (short form) - Note Progress Note: fever curve trending down looks comfortable no diarrhea Vital Signs Period Temp Pulse Resp BP Sys/Jay Pulse Ox Last 24 Hr 98.3 F-101.2 F 88-102 18-20 90-118/53-75 99-99 cor-rrr lungs decreased bs at bases abd soft, GT ext no edema CBC, BMP 03/26/18 06:15 03/26/18 06:15 Microbiology 03/25/18 16:00 Sputum - Expectorated Gram Stain - Final 03/25/18 10:00 Blood - Peripheral Venous Blood Culture - Preliminary NO GROWTH OBTAINED AFTER 24 HOURS, INCUBATION TO CONTINUE FOR 4 DAYS. 03/25/18 09:45 Blood - Peripheral Venous Blood Culture - Preliminary NO GROWTH OBTAINED AFTER 24 HOURS, INCUBATION TO CONTINUE FOR 4 DAYS. 03/19/18 18:00 Blood - Peripheral Venous Blood Culture - Final NO GROWTH AFTER 5 DAYS INCUBATION 03/19/18 17:50 Blood - Peripheral Venous Blood Culture - Final NO GROWTH AFTER 5 DAYS INCUBATION 03/21/18 17:30 Urine For Antigen Detection Legionella Antigen - Final 03/21/18 17:30 Urine For Antigen Detection Streptococcus pneumoniae Antigen (M - Final 03/08/18 23:11 Blood - Peripheral Venous Blood Culture - Final NO GROWTH AFTER 5 DAYS INCUBATION 03/08/18 23:11 Blood - Peripheral Venous Blood Culture - Final NO GROWTH AFTER 5 DAYS INCUBATION 03/11/18 13:33 Nares - Left Nares MRSA Screen - Final NO MRSA ISOLATED 03/08/18 23:11 Urine - Urine - Catheterized Urine Culture - Final NO GROWTH OBTAINED 03/09/18 02:41 Stool Clostridium difficile Antigen (CHLOÉ) - Final 03/09/18 02:41 Stool Clostridium difficile Toxin Assay - Final a/p fevers improved-hemodynamically stable f/u cultures recent ct scan abd/pelvis/chest noted
[2018-03-26] MEDS ORDERED: PT OWN MED DRAWER 7, Y5N ONE (22:27)
[2018-03-26] MEDS: MONTELUKAST NA 5 MG TAB.CHEW PO SCH (22:34)
[2018-03-27] MEDS: ACETAMINOPHEN 650 MG/20.3 ML ORAL SOLUTION (CUPS) PO PRN ×4 (01:45→21:00)
[2018-03-27] MEDS: diazePAM 2 MG TABLET PO SCH ×3 (05:46→21:07)
[2018-03-27] MEDS: HEPARIN NA (PORCINE) 5,000 UNITS/ML 1ML VIAL SQ SCH ×3 (05:46→21:06)
[2018-03-27] MEDS: LEVOTHYROXINE NA 25 MCG TABLET (FP) PO SCH (06:02)
[2018-03-27] MEDS: ALBUTEROL SO4 2.5/IPRATROPIUM 0.5 INH SOL 3 ML VIAL.NEB. NEB SCH ×4 (08:02→19:30)
[2018-03-27] MEDS: AMINO ACIDS/PROTEIN HYDROLYS 30 ML LIQUID.PKT PO SCH (08:04)
[2018-03-27] MEDS ORDERED: PT OWN MED DRAWER 7, Y5N ONE ×2 (08:45→21:04)
[2018-03-27] MEDS: LACOSAMIDE 50 MG TABLET PO SCH ×2 (09:01→21:06)
[2018-03-27] MEDS: PHENobarbital 20 MG/5 ML UNIT-DOSE CUP PEG SCH (09:01)
[2018-03-27] MEDS: levETIRAcetam 500 MG/5 ML ORAL SOLUTION (UNIT-DOSE CUPS) PO SCH ×2 (09:01→21:07)
[2018-03-27] MEDS: LORATADINE 10 MG TABLET PO SCH (09:01)
[2018-03-27] MEDS: GABAPENTIN 400 MG CAPSULE (FP) PO SCH ×2 (09:01→21:07)
[2018-03-27] MEDS: ZINC OXIDE 20% TOPICAL OINTMENT 30 GM TUBE TP SCH ×2 (09:02→21:07)
[2018-03-27] MEDS: LYTES/YERBA SANTA 240 ML BOTTLE MM SCH (09:02)
--- NOTE | 2018-03-27 09:05 | PN ---
Progress Note, Physician Chief Complaint: Cardiology for [place] History of Present Illness: Febrile, sinus tach in setting of fever - Current Medication List Current Medications: Active Medications Acetaminophen (Tylenol Oral Solution -) 650 mg PO Q6H PRN PRN Reason: FEVER Last Admin: 03/27/18 08:04 Dose: 650 mg Albuterol Sulfate (Ventolin 0.083% Nebulizer Soln -) 1 amp NEB Q3H PRN PRN Reason: SHORT OF BREATH/WHEEZING Albuterol/Ipratropium (Duoneb -) 1 amp NEB RQID [facility] Last Admin: 03/27/18 08:02 Dose: 1 amp Amino Acids (Prosource No Carb Liquid Pkt) 30 ml PO DAILY@0800 [facility] Last Admin: 03/27/18 08:04 Dose: 30 ml Diazepam (Valium -) 2 mg PO TID [facility] Last Admin: 03/27/18 05:46 Dose: 2 mg Gabapentin (Neurontin -) 400 mg PO BID [facility] Last Admin: 03/26/18 22:34 Dose: 400 mg Heparin Sodium (Porcine) (Heparin -) 5,000 unit SQ TID [facility] Last Admin: 03/27/18 05:46 Dose: 5,000 unit Levofloxacin (Levaquin 500 Mg Premixed Ivpb -) 500 mg in 100 mls @ 100 mls/hr IVPB DAILY [facility]; Protocol Lacosamide (Vimpat -) 50 mg PO BID [facility] Last Admin: 03/26/18 22:34 Dose: 50 mg Levetiracetam (Keppra Oral Solution -) 1,500 mg PO DAILY [facility] Last Admin: 03/26/18 10:04 Dose: 1,500 mg Levetiracetam (Keppra Oral Solution -) 1,750 mg PO [facility] Last Admin: 03/26/18 22:34 Dose: 1,750 mg Levothyroxine Sodium (Synthroid -) 25 mcg PO DAILY@0700 [facility] Last Admin: 03/27/18 06:02 Dose: 25 mcg Loratadine (Claritin -) 10 mg PO DAILY [facility] Last Admin: 03/26/18 10:03 Dose: 10 mg Montelukast Sodium (Singulair -) 5 mg PO [facility] Last Admin: 03/26/18 22:34 Dose: 5 mg Multi-Ingredient Ointment (Zinc Oxide) 1 applic TP BID [facility] Last Admin: 03/26/18 22:36 Dose: 1 applic Phenobarbital (Phenobarbital Liquid -) 60 mg PEG DAILY [facility] Last Admin: 03/26/18 10:03 Dose: 60 mg Saliva Substitute (Mouthkote Solution -) 1 applic MM DAILY [facility] Last Admin: 03/26/18 10:04 Dose: 1 applic Scopolamine HBr (Transderm-Scop -) 1 patch TD Q72H [facility] Last Admin: 03/24/18 21:09 Dose: 1 patch - Objective Vital Signs: Vital Signs Temperature 99.9 F H 03/27/18 06:00 Pulse Rate 98 H 03/27/18 06:00 Respiratory Rate 20 03/27/18 06:00 Blood Pressure 135/90 03/27/18 06:00 O2 Sat by Pulse Oximetry (%) 99 03/26/18 21:00 Constitutional: Yes: Other (Contracted) Cardiovascular: Yes: Tachycardia Respiratory: Yes: Rhonchi Gastrointestinal: Yes: Soft Edema: No Labs: CBC, BMP 03/26/18 06:15 03/26/18 06:15 INR, PTT INR 1.58 (0.82-1.09) H 03/10/18 05:30 Microbiology 03/25/18 10:00 Blood - Peripheral Venous Blood Culture - Preliminary NO GROWTH OBTAINED AFTER 24 HOURS, INCUBATION TO CONTINUE FOR 4 DAYS. 03/25/18 09:45 Blood - Peripheral Venous Blood Culture - Preliminary NO GROWTH OBTAINED AFTER 24 HOURS, INCUBATION TO CONTINUE FOR 4 DAYS. - ....Imaging EKG: Image Reviewed Assessment/Plan IMP: Fever, suspected aspiration events (as per RN) Sinus tach in setting of fever REC: 1. Supportive care: abx, supplimental O2 2. Measures to reduce/prevent aspiration as per PMD 3. DVT prophylaxis. Coverage for Dr. Chan
--- NOTE | 2018-03-27 09:46 | PN ---
Progress Note, Physician History of Present Illness: pulmonary no distress,less congestion. tmax 101 - Current Medication List Current Medications: Active Medications Acetaminophen (Tylenol Oral Solution -) 650 mg PO Q6H PRN PRN Reason: FEVER Last Admin: 03/27/18 08:04 Dose: 650 mg Albuterol Sulfate (Ventolin 0.083% Nebulizer Soln -) 1 amp NEB Q3H PRN PRN Reason: SHORT OF BREATH/WHEEZING Albuterol/Ipratropium (Duoneb -) 1 amp NEB RQID [facility] Last Admin: 03/27/18 08:02 Dose: 1 amp Amino Acids (Prosource No Carb Liquid Pkt) 30 ml PO DAILY@0800 [facility] Last Admin: 03/27/18 08:04 Dose: 30 ml Diazepam (Valium -) 2 mg PO TID [facility] Last Admin: 03/27/18 05:46 Dose: 2 mg Gabapentin (Neurontin -) 400 mg PO BID [facility] Last Admin: 03/27/18 09:01 Dose: 400 mg Heparin Sodium (Porcine) (Heparin -) 5,000 unit SQ TID [facility] Last Admin: 03/27/18 05:46 Dose: 5,000 unit Levofloxacin (Levaquin 500 Mg Premixed Ivpb -) 500 mg in 100 mls @ 100 mls/hr IVPB DAILY [facility]; Protocol Last Admin: 03/27/18 09:01 Dose: 100 mls/hr Lacosamide (Vimpat -) 50 mg PO BID [facility] Last Admin: 03/27/18 09:01 Dose: 50 mg Levetiracetam (Keppra Oral Solution -) 1,500 mg PO DAILY [facility] Last Admin: 03/27/18 09:01 Dose: 1,500 mg Levetiracetam (Keppra Oral Solution -) 1,750 mg PO [facility] Last Admin: 03/26/18 22:34 Dose: 1,750 mg Levothyroxine Sodium (Synthroid -) 25 mcg PO DAILY@0700 [facility] Last Admin: 03/27/18 06:02 Dose: 25 mcg Loratadine (Claritin -) 10 mg PO DAILY [facility] Last Admin: 03/27/18 09:01 Dose: 10 mg Montelukast Sodium (Singulair -) 5 mg PO [facility] Last Admin: 03/26/18 22:34 Dose: 5 mg Multi-Ingredient Ointment (Zinc Oxide) 1 applic TP BID [facility] Last Admin: 03/27/18 09:02 Dose: 1 applic Phenobarbital (Phenobarbital Liquid -) 60 mg PEG DAILY [facility] Last Admin: 03/27/18 09:01 Dose: 60 mg Saliva Substitute (Mouthkote Solution -) 1 applic MM DAILY [facility] Last Admin: 03/27/18 09:02 Dose: 1 applic Scopolamine HBr (Transderm-Scop -) 1 patch TD Q72H [facility] Last Admin: 03/24/18 21:09 Dose: 1 patch - Objective Vital Signs: Vital Signs Temperature 99.9 F H 03/27/18 06:00 Pulse Rate 98 H 03/27/18 06:00 Respiratory Rate 20 03/27/18 06:00 Blood Pressure 135/90 03/27/18 06:00 O2 Sat by Pulse Oximetry (%) 99 03/26/18 21:00 Constitutional: Yes: Calm, Thin Eyes: Yes: WNL HENT: Yes: WNL Neck: Yes: WNL Cardiovascular: Yes: Regular Rate and Rhythm, S1, S2 Respiratory: Yes: Rhonchi (few rhonchi) Gastrointestinal: Yes: Normal Bowel Sounds, Soft Extremities: Yes: Shortened Edema: No Labs: CBC, BMP Problem List - Problems (1) Abdominal distention Code(s): R14.0 - ABDOMINAL DISTENSION (GASEOUS) (2) Elevated LFTs Code(s): R94.5 - ABNORMAL RESULTS OF LIVER FUNCTION STUDIES (3) Pneumonia Code(s): J18.9 - PNEUMONIA, UNSPECIFIED ORGANISM (4) Respiratory distress Code(s): R06.03 - ACUTE RESPIRATORY DISTRESS (5) Seizure disorder Code(s): G40.909 - EPILEPSY, UNSP, NOT INTRACTABLE, WITHOUT STATUS EPILEPTICUS (6) Sepsis Code(s): A41.9 - SEPSIS, UNSPECIFIED ORGANISM Qualifiers: Sepsis type: sepsis due to unspecified organism Qualified Code(s): A41.9 - Sepsis, unspecified organism Assessment/Plan ASSESSMENT AND PLAN: Acute Hypoxic Respiratory Failure improving Pneumonia likely Aspiration Severe Sepsis resolving Elevated LFTs improved Abdominal Distention/Constipation Seizure Disorder Mental Retardation - antibiotics as per id - aspiration precautions - O2 to keep SpO2 >90% - antiepileptics - DVT prophylaxis - inhaled bronchodilators DR MARTÍNEZ
[2018-03-27] MEDS: SCOPOLAMINE HYDROBROMIDE 1 PATCH PATCH.TD72 TD SCH (12:12)
--- NOTE | 2018-03-27 12:54 | PN ---
Progress Note (short form) - Note Progress Note: resting comfortable. as per RN had 1 loose BM earlier today. no thick secretions on suctioning Current Medications Generic Name Dose Route Start Last Admin Trade Name Lazaro PRN Reason Stop Dose Admin Acetaminophen 650 mg 03/21/18 20:19 03/27/18 08:04 Tylenol Oral Solution - PO 650 mg Q6H PRN Administration FEVER Albuterol Sulfate 1 amp 03/22/18 14:09 Ventolin 0.083% Nebulizer Soln - NEB Q3H PRN SHORT OF BREATH/WHEEZING Albuterol/Ipratropium 1 amp 03/19/18 16:00 03/27/18 11:35 Duoneb - NEB 1 amp RQID AUNG Administration Amino Acids 30 ml 03/17/18 08:00 03/27/18 08:04 Prosource No Carb Liquid Pkt PO 30 ml DAILY@0800 AUNG Administration Diazepam 2 mg 03/18/18 14:00 03/27/18 05:46 Valium - PO 2 mg TID AUNG Administration Gabapentin 400 mg 03/16/18 22:00 03/27/18 09:01 Neurontin - PO 400 mg BID AUNG Administration Heparin Sodium (Porcine) 5,000 unit 03/16/18 22:00 03/27/18 05:46 Heparin - SQ 5,000 unit TID AUNG Administration Levofloxacin 500 mg in 100 mls @ 100 mls/hr 03/27/18 10:00 03/27/18 09:01 Levaquin 500 Mg Premixed Ivpb - IVPB 100 mls/hr DAILY AUNG Administration Protocol Lacosamide 50 mg 03/16/18 22:00 03/27/18 09:01 Vimpat - PO 50 mg BID AUNG Administration Levetiracetam 1,500 mg 03/17/18 10:00 03/27/18 09:01 Keppra Oral Solution - PO 1,500 mg DAILY AUNG Administration Levetiracetam 1,750 mg 03/16/18 22:00 03/26/18 22:34 Keppra Oral Solution - PO 1,750 mg HS AUNG Administration Levothyroxine Sodium 25 mcg 03/19/18 07:00 03/27/18 06:02 Synthroid - PO 25 mcg DAILY@0700 AUNG Administration Loratadine 10 mg 03/17/18 10:00 03/27/18 09:01 Claritin - PO 10 mg DAILY AUNG Administration Montelukast Sodium 5 mg 03/16/18 22:00 03/26/18 22:34 Singulair - PO 5 mg HS AUNG Administration Multi-Ingredient Ointment 1 applic 03/16/18 22:00 03/27/18 09:02 Zinc Oxide TP 1 applic BID AUNG Administration Phenobarbital 60 mg 03/23/18 14:20 03/27/18 09:01 Phenobarbital Liquid - PEG 60 mg DAILY AUNG Administration Saliva Substitute 1 applic 03/17/18 10:00 03/27/18 09:02 Mouthkote Solution - MM 1 applic DAILY AUNG Administration Scopolamine HBr 1 patch 03/24/18 12:00 03/27/18 12:12 Transderm-Scop - TD 1 patch Q72H AUNG Administration Last Vital Signs Temp Pulse Resp BP Pulse Ox 99.9 F H 98 H 20 135/90 99 03/27/18 06:00 03/27/18 06:00 03/27/18 06:00 03/27/18 06:00 03/26/18 21:00 General NAD, +copious drooling CV S1 S2 RRR no murmur/rub/gallop lungs CTA B/L anteriorly Abdomen soft. +dull to percussion, hypoactive BS +PEG LUQ in place. no drainage of bleeding noted Extremities contracted extremities ASSESSMENT AND PLAN: 23yo M from [place] with PMH cerebral palsy, mental retardation, functional quadriplegia was sent to the ER with acute hypoxic respiratory failure. was found to be 88% on RA which did not improve with nasal cannula and sent to the hospital. 1. Acute hypoxic respiratory failure- likely due to B/L PNA and developing congestion. clinically improved., intermittently requiring supplemental oxygen. secretions are no longer thick. ensure HOB is elevated >45degrees, cont with deep suctioning. chest PT. aspiration precautions. currently saturating 97% on RA.pulmonary on board 2. UTI- Tm 101. started on levaquin day 2. f/u Cx. tex[place] catheter in place. ID on board. 3. cdiff- intermittent loose stools. will cont vanco po day 1 x7days 4. Severe sepsis due to aspiration PNA- completed course of abx. repeat CXr clear 5. Seizure-episode last night liekly related to fevers. cont current medications. seizure precautions. 6. Hypothyroid- started on Lt4 this hospital stay. will need repeat TSH in 6 weeks 7. Elevated LFT- likely due to severe sepsis. u/s showing fatty infiltration of liver. resolved 8. hyperkalemia- now low. will replete 9. hypernatremia- resolved. cont free water flushes to 40cc/H 10. hypoglycemia- improved. 11. ileus- seen on CT. appear may be more chronic. tolerating TF. GI on board 12. MR 13. CP 14. DVT ppx- hep sq Visit type - Emergency Visit Emergency Visit: Yes ED Registration Date: 03/09/18 Care time: The patient presented to the Emergency Department on the above date and was hospitalized for further evaluation of their emergent condition. - New Patient This patient is new to me today: No - Critical Care Critical Care patient: No - Discharge Referral Referred to [facility] Med P.C.: No
--- NOTE | 2018-03-27 14:54 | PN ---
Progress Note (short form) - Note Progress Note: fever curve trending down looks comfortable no diarrhea Vital Signs Period Temp Pulse Resp BP Sys/Jay Pulse Ox Last 24 Hr 99.2 F-101.0 F 98-113 18-20 94-135/61-94 99-99 cor-rrr lungs clear abd soft, nt ext no edema CBC, BMP 03/26/18 06:15 03/26/18 06:15 Microbiology 03/25/18 16:00 Sputum - Expectorated Gram Stain - Final 03/25/18 16:00 Sputum - Expectorated Sputum Culture - Preliminary NORMAL RESPIRATORY LAURA 03/25/18 13:15 Urine - Urine Clean Catch Urine Culture - Final NO GROWTH OBTAINED 03/25/18 10:00 Blood - Peripheral Venous Blood Culture - Preliminary NO GROWTH OBTAINED AFTER 48 HOURS, INCUBATION TO CONTINUE FOR 3 DAYS. 03/25/18 09:45 Blood - Peripheral Venous Blood Culture - Preliminary NO GROWTH OBTAINED AFTER 48 HOURS, INCUBATION TO CONTINUE FOR 3 DAYS. 03/19/18 18:00 Blood - Peripheral Venous Blood Culture - Final NO GROWTH AFTER 5 DAYS INCUBATION 03/19/18 17:50 Blood - Peripheral Venous Blood Culture - Final NO GROWTH AFTER 5 DAYS INCUBATION 03/21/18 17:30 Urine For Antigen Detection Legionella Antigen - Final 03/21/18 17:30 Urine For Antigen Detection Streptococcus pneumoniae Antigen (M - Final 03/08/18 23:11 Blood - Peripheral Venous Blood Culture - Final NO GROWTH AFTER 5 DAYS INCUBATION 03/08/18 23:11 Blood - Peripheral Venous Blood Culture - Final NO GROWTH AFTER 5 DAYS INCUBATION 03/11/18 13:33 Nares - Left Nares MRSA Screen - Final NO MRSA ISOLATED 03/08/18 23:11 Urine - Urine - Catheterized Urine Culture - Final NO GROWTH OBTAINED 03/09/18 02:41 Stool Clostridium difficile Antigen (CHLOÉ) - Final 03/09/18 02:41 Stool Clostridium difficile Toxin Assay - Final a/p fevers improved-hemodynamically stable f/u cultures-negative, d/c levaquin and observe recent ct scan abd/pelvis/chest noted
[2018-03-27] MEDS: VANCOMYCIN 250 MG/5 ML ORAL SOLUTION PO SCH ×2 (17:29→23:13)
[2018-03-27] MEDS: MONTELUKAST NA 5 MG TAB.CHEW PO SCH (21:07)
[2018-03-28] MEDS: ACETAMINOPHEN 650 MG/20.3 ML ORAL SOLUTION (CUPS) PO PRN ×4 (02:38→21:52)
[2018-03-28] MEDS: HEPARIN NA (PORCINE) 5,000 UNITS/ML 1ML VIAL SQ SCH ×3 (05:05→21:51)
[2018-03-28] MEDS: VANCOMYCIN 250 MG/5 ML ORAL SOLUTION PO SCH ×4 (05:06→23:03)
[2018-03-28] MEDS: diazePAM 2 MG TABLET PO SCH ×3 (05:06→21:52)
[2018-03-28] MEDS: LEVOTHYROXINE NA 25 MCG TABLET (FP) PO SCH (06:01)
--- NOTE | 2018-03-28 07:43 | PN ---
Physical Exam: SUBJECTIVE: Patient seen and examined. Was being monitored off iv antibiotics. Received last dose of levaquin yesterday. Still on PO vanco. Will complete one week of PO vanco. OBJECTIVE: Vital Signs Period Temp Pulse Resp BP Sys/Jay Pulse Ox Last 24 Hr 98.7 F-100.3 F 68-113 18-22 94-128/49-75 99-99 GENERAL: The patient is resting comfortably, in no acute respiratory distress. ENT: Still with increased secretions-scopolamine patch in place LUNGS: Marked rhonchorous breath sounds more in upper lobes HEART: S1, S2 ABDOMEN: Soft, nontender, mildly distended, bowel sounds present, LUQ pEG tube in place, covered with dressing dark colored , non foul smelling stain EXTREMITIES: Contracted, no edema. NEUROLOGICAL: Somnolent CBC, BMP 03/28/18 07:40 03/28/18 07:40 Laboratory Results - last 24 hr 03/28/18 03/28/18 07:40 07:40 WBC 8.6 RBC 3.46 L Hgb 11.7 Hct 33.6 L MCV 97.2 H MCH 33.7 MCHC 34.7 RDW 17.0 H Plt Count 625 H MPV 8.0 Absolute Neuts (auto) 3.8 Neutrophils % 43.6 D Lymphocytes % 42.3 H D Monocytes % 10.1 Eosinophils % 3.2 Basophils % 0.8 Nucleated RBC % 0 Sodium 140 Potassium 4.1 D Chloride 106 Carbon Dioxide 22 Anion Gap 12 BUN 11 Creatinine 0.5 L Creat Clearance w eGFR > 60 Random Glucose 91 Calcium 9.4 Magnesium 2.1 Active Medications Generic Name Dose Route Start Last Admin Trade Name Lazaro PRN Reason Stop Dose Admin Acetaminophen 650 mg 03/21/18 20:19 03/28/18 02:38 Tylenol Oral Solution - PO 650 mg Q6H PRN Administration FEVER Albuterol/Ipratropium 1 amp 03/19/18 16:00 03/27/18 19:30 Duoneb - NEB 1 amp RQID AUNG Administration Amino Acids 30 ml 03/17/18 08:00 03/27/18 08:04 Prosource No Carb Liquid Pkt PO 30 ml DAILY@0800 AUNG Administration Diazepam 2 mg 03/18/18 14:00 03/28/18 05:06 Valium - PO 2 mg TID AUNG Administration Gabapentin 400 mg 03/16/18 22:00 03/27/18 21:07 Neurontin - PO 400 mg BID AUNG Administration Heparin Sodium (Porcine) 5,000 unit 03/16/18 22:00 03/28/18 05:05 Heparin - SQ 5,000 unit TID AUNG Administration Lacosamide 50 mg 03/16/18 22:00 03/27/18 21:06 Vimpat - PO 50 mg BID AUNG Administration Levetiracetam 1,500 mg 03/17/18 10:00 03/27/18 09:01 Keppra Oral Solution - PO 1,500 mg DAILY AUNG Administration Levetiracetam 1,750 mg 03/16/18 22:00 03/27/18 21:07 Keppra Oral Solution - PO 1,750 mg HS AUNG Administration Levothyroxine Sodium 25 mcg 03/19/18 07:00 03/28/18 06:01 Synthroid - PO 25 mcg DAILY@0700 AUNG Administration Loratadine 10 mg 03/17/18 10:00 03/27/18 09:01 Claritin - PO 10 mg DAILY AUNG Administration Montelukast Sodium 5 mg 03/16/18 22:00 03/27/18 21:07 Singulair - PO 5 mg HS AUNG Administration Multi-Ingredient Ointment 1 applic 03/16/18 22:00 03/27/18 21:07 Zinc Oxide TP 1 applic BID AUNG Administration Phenobarbital 60 mg 03/23/18 14:20 03/27/18 09:01 Phenobarbital Liquid - PEG 60 mg DAILY AUNG Administration Saliva Substitute 1 applic 03/17/18 10:00 03/27/18 09:02 Mouthkote Solution - MM 1 applic DAILY AUNG Administration Scopolamine HBr 1 patch 03/24/18 12:00 03/27/18 12:12 Transderm-Scop - TD 1 patch Q72H AUNG Administration Vancomycin HCl 250 mg 03/27/18 18:00 03/28/18 05:06 Vancomycin Oral Solution PO 250 mg Q6HPO AUNG Administration Current Medications Acetaminophen (Tylenol Oral Solution -) 650 mg PO Q6H PRN PRN Reason: FEVER Last Admin: 03/28/18 02:38 Dose: 650 mg Albuterol/Ipratropium (Duoneb -) 1 amp NEB RQID AUNG Last Admin: 03/27/18 19:30 Dose: 1 amp Amino Acids (Prosource No Carb Liquid Pkt) 30 ml PO DAILY@0800 [facility] Last Admin: 03/27/18 08:04 Dose: 30 ml Diazepam (Valium -) 2 mg PO TID [facility] Last Admin: 03/28/18 05:06 Dose: 2 mg Gabapentin (Neurontin -) 400 mg PO BID [facility] Last Admin: 03/27/18 21:07 Dose: 400 mg Heparin Sodium (Porcine) (Heparin -) 5,000 unit SQ TID [facility] Last Admin: 03/28/18 05:05 Dose: 5,000 unit Lacosamide (Vimpat -) 50 mg PO BID [facility] Last Admin: 03/27/18 21:06 Dose: 50 mg Levetiracetam (Keppra Oral Solution -) 1,500 mg PO DAILY [facility] Last Admin: 03/27/18 09:01 Dose: 1,500 mg Levetiracetam (Keppra Oral Solution -) 1,750 mg PO [facility] Last Admin: 03/27/18 21:07 Dose: 1,750 mg Levothyroxine Sodium (Synthroid -) 25 mcg PO DAILY@0700 [facility] Last Admin: 03/28/18 06:01 Dose: 25 mcg Loratadine (Claritin -) 10 mg PO DAILY [facility] Last Admin: 03/27/18 09:01 Dose: 10 mg Montelukast Sodium (Singulair -) 5 mg PO [facility] Last Admin: 03/27/18 21:07 Dose: 5 mg Multi-Ingredient Ointment (Zinc Oxide) 1 applic TP BID [facility] Last Admin: 03/27/18 21:07 Dose: 1 applic Phenobarbital (Phenobarbital Liquid -) 60 mg PEG DAILY [facility] Last Admin: 03/27/18 09:01 Dose: 60 mg Saliva Substitute (Mouthkote Solution -) 1 applic MM DAILY [facility] Last Admin: 03/27/18 09:02 Dose: 1 applic Scopolamine HBr (Transderm-Scop -) 1 patch TD Q72H [facility] Last Admin: 03/27/18 12:12 Dose: 1 patch Vancomycin HCl (Vancomycin Oral Solution) 250 mg PO Q6HPO [facility] Last Admin: 03/28/18 05:06 Dose: 250 mg Microbiology 03/25/18 16:00 Sputum - Expectorated Gram Stain - Final 03/25/18 16:00 Sputum - Expectorated Sputum Culture - Preliminary NORMAL RESPIRATORY LAURA 03/25/18 13:15 Urine - Urine Clean Catch Urine Culture - Final NO GROWTH OBTAINED 03/25/18 10:00 Blood - Peripheral Venous Blood Culture - Preliminary NO GROWTH OBTAINED AFTER 48 HOURS, INCUBATION TO CONTINUE FOR 3 DAYS. 03/25/18 09:45 Blood - Peripheral Venous Blood Culture - Preliminary NO GROWTH OBTAINED AFTER 48 HOURS, INCUBATION TO CONTINUE FOR 3 DAYS. Abd USS: Partially distended gall bladder without gross thickening or intramural stones. Fatty infiltration vs hepatocellular disease ASSESSMENT/PLAN: 23 y/o M resident of [place] with PMHx of profound developmental delay, cerebral palsy, functional quadriplegia, non-interactive at baseline, reactive airway disease, seizure disorder was admitted for Acute hypoxic respiratory failure. Persistent fevers Fever free 24hrs [id number] oral Received levaquin for UTI from 03/26/18 Now being observed off iv AB Cont PO vanco-03/23 for 1 week total Change pEG tube dressing UTI UA: 3+ Leukocyte esterase, 23 WBC Started Levaquin 500 mg DAILY 03/26/18-till 03/27/18 Completed Ceftriaxone day 5 Being monitored off antibiotics no fevers Abnormal Thyroid function tests TSH and Free T4 high Endocrine consulted, appreciate rec's Started Synthroid 25 mcg PO DAILY this admission Repeat Thyroid function tests in 4 to 6 weeks to adjust dose as necessary post discharge Acute hypoxic respiratory failure Tachypnea, improved, still rhonchorous with increased secretions Presented with 88% Saturation on 5L via NC at [place] Continue Deep suctioning Chest physio therapy Frequent deep suctioning Pulmonology consulted, geronimo rec's ID Consulted, appreciate rec's, To continue Vancomycin 7 days following discontinuation of ceftriaxone - 03/25 Lasix 40mg one time dose (03/24) Diarrhea Stool better formed Suspected C. Diff, Stool was positive for C. Diff antigen, but negative for AB on this visit Hx of stool C.Diff antigen positive but toxin negative--given oral vancomycin in 08/2017 Continue with Oral Vancomycin GI Consulted, appreciate rec's Electrolyte/ mebab abnormalities Hypokalemia, HyperNatremia, Hypoglycemia Resolved on tube feeds Ileus Resolved, Tolerating Tube feed Seen on CT, PEG tube was put to suction in past during this admission Abdominal distension improved bowel sounds present Acute transaminitis Mostly resolved except for isolated Alk Ph Elevated LFTs may be part of the sepsis syndrome Abdominal Ultrasound reviewed Hepatitis BsAb 3.1, indicating pt is not immune, will recommend vaccine when ,more stable, other Hep panel-negative Seizure disorder Continue Keppra, diazepam occasional Tonic/clonic contractions still being observed Facility says these are not new, has a neurologist appt for Aug Continue Phenobarbital 60 mg PEG DAILY DVT ppx Heparin 5000U TID SQ Dispo likely D/C to [facility] for tomorrow Visit type - Emergency Visit Emergency Visit: Yes ED Registration Date: 03/09/18 Care time: The patient presented to the Emergency Department on the above date and was hospitalized for further evaluation of their emergent condition. - New Patient This patient is new to me today: No - Critical Care Critical Care patient: No - Discharge Referral Referred to [facility] Med P.C.: No
[2018-03-28] MEDS: ALBUTEROL SO4 2.5/IPRATROPIUM 0.5 INH SOL 3 ML VIAL.NEB. NEB SCH ×2 (07:54→11:44)
[2018-03-28 08:09] LABS: BASO % 0.8 % (0-2.0); EOS % 3.2 % (0-4.5); HEMATOCRIT 33.6 % (35.4-49); HEMOGLOBIN 11.7 GM/dL (11.7-16.9); LYMPH % 42.3 % (8-40); MCH 33.7 pg (25.7-33.7); MCHC 34.7 g/dl (32.0-35.9); MEAN CELL VOLUME 97.2 fl (80-96); MONO % 10.1 % (3.8-10.2); NEUT % 43.6 % (42.8-82.8); PLATELET COUNT 625 K/MM3 (134-434); RBC 3.46 M/mm3 (4.00-5.60); WHITE BLOOD COUNT 8.6 K/mm3 (4.0-10.0)
[2018-03-28 08:33] LABS: CHLORIDE 106 mmol/L (98-107); POTASSIUM 4.1 mmol/L (3.5-5.1); SODIUM 140 mmol/L (136-145)
[2018-03-28 08:38] LABS: ANION GAP 12 (8-16); BLOOD UREA NITROGEN 11 mg/dL (7-18); CALCIUM 9.4 mg/dL (8.5-10.1); CO2 22 mmol/L (21-32); CREATININE 0.5 mg/dL (0.7-1.3); GLUCOSE,RANDOM 91 mg/dL (74-106); MAGNESIUM 2.1 mg/dL (1.8-2.4)
[2018-03-28] MEDS: AMINO ACIDS/PROTEIN HYDROLYS 30 ML LIQUID.PKT PO SCH (08:55)
--- NOTE | 2018-03-28 09:26 | PN ---
Progress Note, Physician History of Present Illness: PULMONARY NO DISTRESS,LESS CONGESTION,TMAX 100.3 - Current Medication List Current Medications: Active Medications Acetaminophen (Tylenol Oral Solution -) 650 mg PO Q6H PRN PRN Reason: FEVER Last Admin: 03/28/18 08:53 Dose: 650 mg Albuterol/Ipratropium (Duoneb -) 1 amp NEB RQID [facility] Last Admin: 03/28/18 07:54 Dose: 1 amp Amino Acids (Prosource No Carb Liquid Pkt) 30 ml PO DAILY@0800 [facility] Last Admin: 03/28/18 08:55 Dose: 30 ml Diazepam (Valium -) 2 mg PO TID [facility] Last Admin: 03/28/18 05:06 Dose: 2 mg Gabapentin (Neurontin -) 400 mg PO BID [facility] Last Admin: 03/27/18 21:07 Dose: 400 mg Heparin Sodium (Porcine) (Heparin -) 5,000 unit SQ TID [facility] Last Admin: 03/28/18 05:05 Dose: 5,000 unit Lacosamide (Vimpat -) 50 mg PO BID [facility] Last Admin: 03/27/18 21:06 Dose: 50 mg Levetiracetam (Keppra Oral Solution -) 1,500 mg PO DAILY [facility] Last Admin: 03/27/18 09:01 Dose: 1,500 mg Levetiracetam (Keppra Oral Solution -) 1,750 mg PO HS [facility] Last Admin: 03/27/18 21:07 Dose: 1,750 mg Levothyroxine Sodium (Synthroid -) 25 mcg PO DAILY@0700 [facility] Last Admin: 03/28/18 06:01 Dose: 25 mcg Loratadine (Claritin -) 10 mg PO DAILY [facility] Last Admin: 03/27/18 09:01 Dose: 10 mg Montelukast Sodium (Singulair -) 5 mg PO HS [facility] Last Admin: 03/27/18 21:07 Dose: 5 mg Multi-Ingredient Ointment (Zinc Oxide) 1 applic TP BID [facility] Last Admin: 03/27/18 21:07 Dose: 1 applic Phenobarbital (Phenobarbital Liquid -) 60 mg PEG DAILY [facility] Last Admin: 03/27/18 09:01 Dose: 60 mg Saliva Substitute (Mouthkote Solution -) 1 applic MM DAILY [facility] Last Admin: 03/27/18 09:02 Dose: 1 applic Scopolamine HBr (Transderm-Scop -) 1 patch TD Q72H [facility] Last Admin: 03/27/18 12:12 Dose: 1 patch Vancomycin HCl (Vancomycin Oral Solution) 250 mg PO Q6HPO [facility] Last Admin: 03/28/18 05:06 Dose: 250 mg - Objective Vital Signs: Vital Signs Temperature 99.2 F 03/28/18 05:46 Pulse Rate 84 03/28/18 05:46 Respiratory Rate 20 03/28/18 05:46 Blood Pressure 95/49 03/28/18 05:46 O2 Sat by Pulse Oximetry (%) 99 03/27/18 20:56 Constitutional: Yes: Calm, Thin Eyes: Yes: WNL HENT: Yes: WNL Neck: Yes: WNL Cardiovascular: Yes: Regular Rate and Rhythm, S1, S2 Respiratory: Yes: Rhonchi (FEW RHONCHI) Gastrointestinal: Yes: Normal Bowel Sounds, Soft Extremities: Yes: Shortened Edema: No Labs: CBC, BMP 03/28/18 07:40 03/28/18 07:40 INR, PTT INR 1.58 (0.82-1.09) H 03/10/18 05:30 Problem List - Problems (1) Abdominal distention Code(s): R14.0 - ABDOMINAL DISTENSION (GASEOUS) (2) Elevated LFTs Code(s): R94.5 - ABNORMAL RESULTS OF LIVER FUNCTION STUDIES (3) Pneumonia Code(s): J18.9 - PNEUMONIA, UNSPECIFIED ORGANISM (4) Respiratory distress Code(s): R06.03 - ACUTE RESPIRATORY DISTRESS (5) Seizure disorder Code(s): G40.909 - EPILEPSY, UNSP, NOT INTRACTABLE, WITHOUT STATUS EPILEPTICUS (6) Sepsis Code(s): A41.9 - SEPSIS, UNSPECIFIED ORGANISM Qualifiers: Sepsis type: sepsis due to unspecified organism Qualified Code(s): A41.9 - Sepsis, unspecified organism Assessment/Plan ASSESSMENT AND PLAN: Acute Hypoxic Respiratory Failure improved Pneumonia likely Aspiration clinically improved Severe Sepsis resolving Elevated LFTs improved Abdominal Distention/Constipation improved Seizure Disorder Mental Retardation - aspiration precautions - O2 to keep SpO2 >90% - antiepileptics - DVT prophylaxis - inhaled bronchodilators DR MARTÍNEZ
[2018-03-28] MEDS ORDERED: PT OWN MED DRAWER 7, Y5N ONE ×3 (09:27→21:48)
[2018-03-28] MEDS: PHENobarbital 20 MG/5 ML UNIT-DOSE CUP PEG SCH (09:34)
[2018-03-28] MEDS: levETIRAcetam 500 MG/5 ML ORAL SOLUTION (UNIT-DOSE CUPS) PO SCH ×2 (09:34→21:51)
[2018-03-28] MEDS: GABAPENTIN 400 MG CAPSULE (FP) PO SCH ×2 (09:34→21:52)
[2018-03-28] MEDS: LACOSAMIDE 50 MG TABLET PO SCH ×2 (09:34→21:52)
[2018-03-28] MEDS: LORATADINE 10 MG TABLET PO SCH (09:34)
[2018-03-28] MEDS: LYTES/YERBA SANTA 240 ML BOTTLE MM SCH (09:35)
[2018-03-28] MEDS: ZINC OXIDE 20% TOPICAL OINTMENT 30 GM TUBE TP SCH ×2 (09:35→21:57)
--- NOTE | 2018-03-28 09:44 | PN ---
Teaching Attending Note Name of Resident: Yaima Parra ATTENDING PHYSICIAN STATEMENT I saw and evaluated the patient. I reviewed the resident's note and discussed the case with the resident. I agree with the resident's findings and plan as documented. SUBJECTIVE:resting comfortable 1 BM pasty yesterday OBJECTIVE: Last Vital Signs Temp Pulse Resp BP Pulse Ox 99.2 F 84 20 95/49 99 03/28/18 05:46 03/28/18 05:46 03/28/18 05:46 03/28/18 05:46 03/27/18 20:56 General NAD, no drooling CV S1 S2 RRR no murmur/rub/gallop lungs diffuse rhonchi anteriorly Abdomen soft. +dull to percussion, hypoactive BS +PEG LUQ in place. no drainage of bleeding noted Extremities contracted extremities ASSESSMENT AND PLAN: 23yo M from [place] with PMH cerebral palsy, mental retardation, functional quadriplegia was sent to the ER with acute hypoxic respiratory failure. was found to be 88% on RA which did not improve with nasal cannula and sent to the hospital. 1. Acute hypoxic respiratory failure- likely due to B/L PNA and developing congestion. clinically improved. more rhoncherus today however was just changed. breathing comfortable. no secretions on deep suctioning. will monitor breathing status. consider repeat CXR if becomes tachypnic or hypoxic. ensure HOB is elevated >45degrees, cont with deep suctioning. chest PT. aspiration precautions. currently saturating 97% on RA.pulmonary on board 2. UTI- Tm 100.3. no leukocytosis. UCx negative. although may be negative with recent abx course. d/w ID. will monitor off abx at this time. minimize risks of prolonged abx courses. [place] catheter in place. ID on board. 3. cdiff-stools becoming more formed. will cont vanco po day 2 x7days 4. Severe sepsis due to aspiration PNA- completed course of abx. repeat CXr clear 5. Seizure-seizure free >24H. cont current medications. seizure precautions. 6. Hypothyroid- started on Lt4 this hospital stay. will need repeat TSH in 6 weeks 7. Elevated LFT- likely due to severe sepsis. u/s showing fatty infiltration of liver. resolved 8. hyperkalemia- now low. will replete 9. hypernatremia- resolved. cont free water flushes to 40cc/H 10. hypoglycemia- improved. 11. ileus- seen on CT. appear may be more chronic. tolerating TF. GI on board 12. MR 13. CP 14. DVT ppx- hep sq 15. d/c planning to [place] tomorrow
[2018-03-28 11:06] LABS: PHOSPHOROUS 4.6 mg/dL (2.5-4.9)
[2018-03-28] MEDS: ALBUTEROL SO4 2.5/IPRATROPIUM 0.5 INH SOL 3 ML VIAL.NEB. NEB PRN (19:50)
[2018-03-28] MEDS: MONTELUKAST NA 5 MG TAB.CHEW PO SCH (21:52)
[2018-03-29] MEDS: ACETAMINOPHEN 650 MG/20.3 ML ORAL SOLUTION (CUPS) PO PRN (02:58)
[2018-03-29] MEDS: HEPARIN NA (PORCINE) 5,000 UNITS/ML 1ML VIAL SQ SCH ×3 (05:06→21:39)
[2018-03-29] MEDS: diazePAM 2 MG TABLET PO SCH ×3 (05:07→21:38)
[2018-03-29] MEDS: VANCOMYCIN 250 MG/5 ML ORAL SOLUTION PO SCH ×3 (05:07→17:39)
[2018-03-29] MEDS: LEVOTHYROXINE NA 25 MCG TABLET (FP) PO SCH (06:05)
[2018-03-29 07:20] LABS: BASO % 0.9 % (0-2.0); EOS % 2.6 % (0-4.5); HEMATOCRIT 33.4 % (35.4-49); HEMOGLOBIN 11.4 GM/dL (11.7-16.9); LYMPH % 42.1 % (8-40); MCH 33.2 pg (25.7-33.7); MEAN CELL VOLUME 97.7 fl (80-96); MEAN PLT VOLUME 8.3 fl (7.5-11.1); MONO % 9.2 % (3.8-10.2); NEUT % 45.2 % (42.8-82.8); PLATELET COUNT 628 K/MM3 (134-434); RBC 3.42 M/mm3 (4.00-5.60); RDW 16.8 % (11.9-15.9); WHITE BLOOD COUNT 8.8 K/mm3 (4.0-10.0)
[2018-03-29 07:57] LABS: ANION GAP 8 (8-16); BLOOD UREA NITROGEN 12 mg/dL (7-18); CALCIUM 9.1 mg/dL (8.5-10.1); CHLORIDE 108 mmol/L (98-107); CO2 25 mmol/L (21-32); GLUCOSE,RANDOM 87 mg/dL (74-106); MAGNESIUM 2.2 mg/dL (1.8-2.4); POTASSIUM 3.6 mmol/L (3.5-5.1); SODIUM 141 mmol/L (136-145)
[2018-03-29 07:58] LABS: CREATININE 0.4 mg/dL (0.7-1.3); PHOSPHOROUS 4.6 mg/dL (2.5-4.9)
[2018-03-29] MEDS ORDERED: PT OWN MED DRAWER 7, Y5N ONE ×2 (08:26→21:38)
[2018-03-29] MEDS: AMINO ACIDS/PROTEIN HYDROLYS 30 ML LIQUID.PKT PO SCH (09:38)
[2018-03-29] MEDS: LACOSAMIDE 50 MG TABLET PO SCH ×2 (09:38→21:38)
[2018-03-29] MEDS: LORATADINE 10 MG TABLET PO SCH (09:38)
[2018-03-29] MEDS: GABAPENTIN 400 MG CAPSULE (FP) PO SCH ×2 (09:38→21:38)
[2018-03-29] MEDS: PHENobarbital 20 MG/5 ML UNIT-DOSE CUP PEG SCH (09:38)
[2018-03-29] MEDS: LYTES/YERBA SANTA 240 ML BOTTLE MM SCH (09:44)
[2018-03-29] MEDS: levETIRAcetam 500 MG/5 ML ORAL SOLUTION (UNIT-DOSE CUPS) PO SCH ×2 (10:39→21:39)
[2018-03-29] MEDS: ZINC OXIDE 20% TOPICAL OINTMENT 30 GM TUBE TP SCH ×2 (10:40→21:40)
--- NOTE | 2018-03-29 11:57 | PN ---
Progress Note (short form) - Note Progress Note: PULMONARY Pt nonverbal. Low grade temps overnight. Vital Signs Period Temp Pulse Resp BP Sys/Jay Pulse Ox Last 24 Hr 98.7 F-100.4 F 94-116 20-20 113-144/66-98 98 Gen: NAD, breathing nonlabored Heart: RRR Lung: decreased breath sounds at the bases Abd: soft, nontender Ext: no edema, contracted CBC, BMP 03/29/18 06:30 03/29/18 06:30 Active Medications Acetaminophen (Tylenol Oral Solution -) 650 mg PO Q6H PRN PRN Reason: FEVER Last Admin: 03/29/18 02:58 Dose: 650 mg Albuterol/Ipratropium (Duoneb -) 1 amp NEB Q4H PRN PRN Reason: SHORTNESS OF BREATH Last Admin: 03/28/18 19:50 Dose: 1 amp Amino Acids (Prosource No Carb Liquid Pkt) 30 ml PO DAILY@0800 [facility] Last Admin: 03/29/18 09:38 Dose: 30 ml Diazepam (Valium -) 2 mg PO TID [facility] Last Admin: 03/29/18 05:07 Dose: 2 mg Gabapentin (Neurontin -) 400 mg PO BID [facility] Last Admin: 03/29/18 09:38 Dose: 400 mg Heparin Sodium (Porcine) (Heparin -) 5,000 unit SQ TID [facility] Last Admin: 03/29/18 05:06 Dose: 5,000 unit Lacosamide (Vimpat -) 50 mg PO BID [facility] Last Admin: 03/29/18 09:38 Dose: 50 mg Levetiracetam (Keppra Oral Solution -) 1,500 mg PO DAILY [facility] Last Admin: 03/29/18 10:39 Dose: 1,500 mg Levetiracetam (Keppra Oral Solution -) 1,750 mg PO [facility] Last Admin: 03/28/18 21:51 Dose: 1,750 mg Levothyroxine Sodium (Synthroid -) 25 mcg PO DAILY@0700 [facility] Last Admin: 03/29/18 06:05 Dose: 25 mcg Loratadine (Claritin -) 10 mg PO DAILY [facility] Last Admin: 03/29/18 09:38 Dose: 10 mg Montelukast Sodium (Singulair -) 5 mg PO [facility] Last Admin: 03/28/18 21:52 Dose: 5 mg Multi-Ingredient Ointment (Zinc Oxide) 1 applic TP BID [facility] Last Admin: 03/29/18 10:40 Dose: 1 applic Phenobarbital (Phenobarbital Liquid -) 60 mg PEG DAILY [facility] Last Admin: 03/29/18 09:38 Dose: 60 mg Saliva Substitute (Mouthkote Solution -) 1 applic MM DAILY [facility] Last Admin: 03/29/18 09:44 Dose: 1 applic Scopolamine HBr (Transderm-Scop -) 1 patch TD Q72H [facility] Last Admin: 03/27/18 12:12 Dose: 1 patch Vancomycin HCl (Vancomycin Oral Solution) 250 mg PO Q6HPO [facility] Last Admin: 03/29/18 11:21 Dose: 250 mg A/P Acute Hypoxic Respiratory Failure improving Pneumonia likely Aspiration Severe Sepsis resolving Elevated LFTs likely ischemic injury Abdominal Distention/Constipation Seizure Disorder Mental Retardation +C diff Ag - O2 to keep SpO2 >90% - continue antiepileptics - enteral feeds - aspiration precautions - DVT prophylaxis
--- NOTE | 2018-03-29 12:27 | PN ---
Teaching Attending Note Name of Resident: Maddie Clark ATTENDING PHYSICIAN STATEMENT I saw and evaluated the patient. I reviewed the resident's note and discussed the case with the resident. I agree with the resident's findings and plan as documented. SUBJECTIVE:tonic/clonic movements all 4 extremities, lasted 30secs and self resolved OBJECTIVE: Last Vital Signs Temp Pulse Resp BP Pulse Ox 98.7 F 94 H 20 126/98 98 03/29/18 05:41 03/29/18 05:41 03/29/18 05:41 03/29/18 05:41 03/28/18 20:54 General NAD, no drooling CV S1 S2 RRR no murmur/rub/gallop lungs diffuse rhonchi anteriorly Abdomen soft. distended +dull to percussion, hypoactive BS +PEG LUQ in place. surrounding erythema with serous drainage. no indurated, not tender Extremities contracted extremities ASSESSMENT AND PLAN: 23yo M from [place] with PMH cerebral palsy, mental retardation, functional quadriplegia was sent to the ER with acute hypoxic respiratory failure. was found to be 88% on RA which did not improve with nasal cannula and sent to the hospital. 1. Acute hypoxic respiratory failure- likely due to B/L PNA and developing congestion. currently 97% on RA. remains rhoncherus however tonic/clonic movement. breathing comfortable. no secretions on deep suctioning. will monitor breathing status. consider repeat CXR if becomes tachypnic or hypoxic. ensure HOB is elevated >45degrees, cont with deep suctioning. chest PT. aspiration precautions. currently saturating 97% on RA.pulmonary on board 2. UTI- possible colonization. will monitor off abx at this time. minimize risks of prolonged abx courses. [place] catheter in place. ID on board. 3. Fever- Tm 100.4 no leukocytosis. less likely infectious. recent CXR done was negative. will check doppler all extremities to r/o DVT. no phlebitis. erythema surrounding peg does not appear infectious. will do local wound care. request GI to evaluate PEG. 4. cdiff-stools becoming more formed. will cont vanco po day 3 x7days 5. Severe sepsis due to aspiration PNA- completed course of abx. repeat CXr clear 6. Seizure-seizure like activity this AM. broke on its own. typical presentation. cont current medications. seizure precautions. 7. Hypothyroid- started on Lt4 this hospital stay. will need repeat TSH in 6 weeks 8. Elevated LFT- likely due to severe sepsis. u/s showing fatty infiltration of liver. resolved 9. hyperkalemia- now low. possible due to diarrhea. will start low dose supplementation 10. hypernatremia- resolved. cont free water flushes to 40cc/H 11. hypoglycemia- improved. 12. ileus- seen on CT. appear may be more chronic. tolerating TF. GI on board 13. MR 14. CP 15. DVT ppx- hep sq 16. d/c planning tomorrow pending resolution of fevers
--- NOTE | 2018-03-29 13:09 | PN ---
Progress Note (short form) - Note Progress Note: low grade temp comfortable Vital Signs Period Temp Pulse Resp BP Sys/Jay Pulse Ox Last 24 Hr 98.7 F-100.4 F 94-116 20-20 113-144/66-98 98 cor-rrr lungs decreased bs at bases abd firm nt ext no edema CBC, BMP 03/29/18 06:30 03/29/18 06:30 Microbiology 03/25/18 10:00 Blood - Peripheral Venous Blood Culture - Preliminary NO GROWTH OBTAINED AFTER 96 HOURS, INCUBATION TO CONTINUE FOR 1 DAYS. 03/25/18 09:45 Blood - Peripheral Venous Blood Culture - Preliminary NO GROWTH OBTAINED AFTER 96 HOURS, INCUBATION TO CONTINUE FOR 1 DAYS. 03/25/18 16:00 Sputum - Expectorated Gram Stain - Final 03/25/18 16:00 Sputum - Expectorated Sputum Culture - Final NORMAL RESPIRATORY LAURA 03/25/18 13:15 Urine - Urine Clean Catch Urine Culture - Final NO GROWTH OBTAINED 03/19/18 18:00 Blood - Peripheral Venous Blood Culture - Final NO GROWTH AFTER 5 DAYS INCUBATION 03/19/18 17:50 Blood - Peripheral Venous Blood Culture - Final NO GROWTH AFTER 5 DAYS INCUBATION 03/21/18 17:30 Urine For Antigen Detection Legionella Antigen - Final 03/21/18 17:30 Urine For Antigen Detection Streptococcus pneumoniae Antigen (M - Final 03/08/18 23:11 Blood - Peripheral Venous Blood Culture - Final NO GROWTH AFTER 5 DAYS INCUBATION 03/08/18 23:11 Blood - Peripheral Venous Blood Culture - Final NO GROWTH AFTER 5 DAYS INCUBATION 03/11/18 13:33 Nares - Left Nares MRSA Screen - Final NO MRSA ISOLATED 03/08/18 23:11 Urine - Urine - Catheterized Urine Culture - Final NO GROWTH OBTAINED 03/09/18 02:41 Stool Clostridium difficile Antigen (CHLOÉ) - Final 03/09/18 02:41 Stool Clostridium difficile Toxin Assay - Final a/p fevers improved-hemodynamically stable f/u cultures-negative, d/c levaquin and observe recent ct scan abd/pelvis/chest noted continue off antibiotics, dopplers today hopefully back to snf in am l d/w hospitalist
--- NOTE | 2018-03-29 17:49 | PN ---
Physical Exam: SUBJECTIVE: Patient seen and examined this morning at bedside. Continues to have tonic clonic movements in all four extremities. No overnight acute events as per nursing. OBJECTIVE: Vital Signs Period Temp Pulse Resp BP Sys/Jay Pulse Ox Last 24 Hr 98.7 F-100.3 F 90-116 20-22 95-144/59-98 98-100 GENERAL: Nonverbal, No acute distress LUNGS: Diffuse Rhonchi throughout, 5L via Nasal canula HEART: Regular rate and rhythm, S1, S2 without murmur, rub or gallop. ABDOMEN: Soft, Distended, Dullness to percussion present, Hypoactive bowel sounds, PEG tube present in LUQ with surrounding erythema and serous drainage. : [place] catheter present draining dark yellow urine EXTREMITIES: Upper extremities Contracted B/L, tremors and contractions in all extremities that self resolve Laboratory Results - last 24 hr 03/29/18 03/29/18 06:30 06:30 WBC 8.8 RBC 3.42 L Hgb 11.4 L Hct 33.4 L MCV 97.7 H MCH 33.2 MCHC 34.0 RDW 16.8 H Plt Count 628 H MPV 8.3 Absolute Neuts (auto) 4.0 Neutrophils % 45.2 Lymphocytes % 42.1 H Monocytes % 9.2 Eosinophils % 2.6 Basophils % 0.9 Nucleated RBC % 0 Sodium 141 Potassium 3.6 Chloride 108 H Carbon Dioxide 25 Anion Gap 8 BUN 12 Creatinine 0.4 L Creat Clearance w eGFR > 60 Random Glucose 87 Calcium 9.1 Phosphorus 4.6 Magnesium 2.2 Active Medications Acetaminophen (Tylenol Oral Solution -) 650 mg PO Q6H PRN PRN Reason: FEVER Last Admin: 03/29/18 02:58 Dose: 650 mg Albuterol/Ipratropium (Duoneb -) 1 amp NEB Q4H PRN PRN Reason: SHORTNESS OF BREATH Last Admin: 03/28/18 19:50 Dose: 1 amp Amino Acids (Prosource No Carb Liquid Pkt) 30 ml PO DAILY@0800 [facility] Last Admin: 03/29/18 09:38 Dose: 30 ml Diazepam (Valium -) 2 mg PO TID [facility] Last Admin: 03/29/18 14:05 Dose: 2 mg Gabapentin (Neurontin -) 400 mg PO BID [facility] Last Admin: 03/29/18 09:38 Dose: 400 mg Heparin Sodium (Porcine) (Heparin -) 5,000 unit SQ TID [facility] Last Admin: 03/29/18 14:05 Dose: 5,000 unit Lacosamide (Vimpat -) 50 mg PO BID [facility] Last Admin: 03/29/18 09:38 Dose: 50 mg Levetiracetam (Keppra Oral Solution -) 1,500 mg PO DAILY [facility] Last Admin: 03/29/18 10:39 Dose: 1,500 mg Levetiracetam (Keppra Oral Solution -) 1,750 mg PO HS [facility] Last Admin: 03/28/18 21:51 Dose: 1,750 mg Levothyroxine Sodium (Synthroid -) 25 mcg PO DAILY@0700 [facility] Last Admin: 03/29/18 06:05 Dose: 25 mcg Loratadine (Claritin -) 10 mg PO DAILY [facility] Last Admin: 03/29/18 09:38 Dose: 10 mg Montelukast Sodium (Singulair -) 5 mg PO HS [facility] Last Admin: 03/28/18 21:52 Dose: 5 mg Multi-Ingredient Ointment (Zinc Oxide) 1 applic TP BID [facility] Last Admin: 03/29/18 10:40 Dose: 1 applic Phenobarbital (Phenobarbital Liquid -) 60 mg PEG DAILY [facility] Last Admin: 03/29/18 09:38 Dose: 60 mg Saliva Substitute (Mouthkote Solution -) 1 applic MM DAILY [facility] Last Admin: 03/29/18 09:44 Dose: 1 applic Scopolamine HBr (Transderm-Scop -) 1 patch TD Q72H [facility] Last Admin: 03/27/18 12:12 Dose: 1 patch Vancomycin HCl (Vancomycin Oral Solution) 250 mg PO Q6HPO [facility] Last Admin: 03/29/18 11:21 Dose: 250 mg IMAGING - CXR: Imaging reveals scoliosis with extensive spinal support rods, weak inspiration with bilateral effusions, infiltrates and large heart. There is abdominal distention which is quite diffuse. The bones and soft tissues are intact. - CT Abdomen Pelvis: Extensive bilateral pulmonary consolidation with poor aeration of the lung ortiz. Marked air and fluid distention of the entire colon with no gross evidence of obstruction. Markedly limited study as described above. - CXR (03/24): Imaging reveals little change since 03/23/2018. Again noted is a scoliosis with spinal support rods, generalized abdominal distention with elevated right hemidiaphragm, chin artifact and no sign of infiltrate or failure. Correlation recommended. ASSESSMENT/PLAN: 23 y/o M resident of [place] with PMHx of profound developmental delay, cerebral palsy, functional quadriplegia, non-interactive at baseline, reactive airway disease, seizure disorder was admitted for Acute hypoxic respiratory failure. 1. UTI - Temp reached 100.3 over night - UA: 3+ Leukocyte esterase, 23 WBC - Completed Ceftriaxone day 5 - ABx discontinued, Panculture off of abx - D/c'ed Levaquin 500 mg DAILY 2. Abnormal Thyroid function tests - TSH and Free T4 high - Endocrine consulted, appreciate rec's - Continue Synthroid 25 mcg PO DAILY - Repeat Thyroid function tests in 4 to 6 weeks to adjust dose as necessary 3. Acute hypoxic respiratory failure - Tachypnic, Rhonchi improved - 88% Saturation did not improve on 5L via NC at [place] as per chart - Currently sats >95% - Continue Deep suctioning - Chest physio therapy - Frequent deep suctioning - Pulmonology consulted, appreciate rec's - ID Consulted, appreciate rec's, Will need Cefotin 4 days and Vancomycin 7 days on discharge - Lasix 40mg one time dose (03/24) - Patient continues to spike fevers, Doppler of all extremities to rule out DVT ordered 4. Diarrhea - Suspected C. Diff, Stool was positive for C. Diff antigen on this visit - Hx of stool C.Diff antigen positive but toxin negative--given oral vancomycin in 08/2017 - Continue with Oral Vancomycin day 11/04 - GI Consulted, appreciate rec's 5. Hypokalemia - Resolved. Was Hyperkalemic (5.5) - Discontinue KCL 40meq PO TID 6. HyperNatremia - Increased Free water added to tube feed 7. Hypoglycemia - Improving on tube feeds - Continue BGM 8. Ileus - Seen on CT - PEG tube already in place to suction - Abdominal distension improved - Hypoactive bowel sounds - Tolerating Tube feed - GI Consulted, appreciate rec's 9. Acute transaminitis - Elevated LFTs may be part of the sepsis syndrome - Resolved - Abdominal Ultrasound reviewed - Hepatitis panel pending 10. Seizure disorder - Continue Keppra - Tonic/clonic contractions during exam today that self resolved - Facility says these are not new - Continue Phenobarbital 60 mg PEG DAILY 11. DVT ppx - Heparin 5000U TID SQ Dispo - likely D/C to [place] when fevers resolve Visit type - Emergency Visit Emergency Visit: Yes ED Registration Date: 03/09/18 Care time: The patient presented to the Emergency Department on the above date and was hospitalized for further evaluation of their emergent condition. - New Patient This patient is new to me today: No - Critical Care Critical Care patient: No
[2018-03-29] MEDS: MONTELUKAST NA 5 MG TAB.CHEW PO SCH (21:38)
[2018-03-30] MEDS: VANCOMYCIN 250 MG/5 ML ORAL SOLUTION PO SCH ×4 (00:03→16:59)
[2018-03-30] MEDS: ACETAMINOPHEN 650 MG/20.3 ML ORAL SOLUTION (CUPS) PO PRN (02:47)
[2018-03-30] MEDS: LEVOTHYROXINE NA 25 MCG TABLET (FP) PO SCH (06:00)
[2018-03-30] MEDS: HEPARIN NA (PORCINE) 5,000 UNITS/ML 1ML VIAL SQ SCH ×2 (06:00→13:07)
[2018-03-30] MEDS: diazePAM 2 MG TABLET PO SCH ×2 (06:00→13:06)
[2018-03-30] MEDS ORDERED: PT OWN MED DRAWER 7, Y5N ONE ×2 (06:22→08:45)
[2018-03-30] MEDS: AMINO ACIDS/PROTEIN HYDROLYS 30 ML LIQUID.PKT PO SCH (08:53)
[2018-03-30] MEDS: ALBUTEROL SO4 2.5/IPRATROPIUM 0.5 INH SOL 3 ML VIAL.NEB. NEB PRN ×2 (09:00→16:29)
[2018-03-30] MEDS: GABAPENTIN 400 MG CAPSULE (FP) PO SCH (09:06)
[2018-03-30] MEDS: LORATADINE 10 MG TABLET PO SCH (09:06)
[2018-03-30] MEDS: levETIRAcetam 500 MG/5 ML ORAL SOLUTION (UNIT-DOSE CUPS) PO SCH (09:06)
[2018-03-30] MEDS: LACOSAMIDE 50 MG TABLET PO SCH (09:06)
[2018-03-30] MEDS: PHENobarbital 20 MG/5 ML UNIT-DOSE CUP PEG SCH (09:06)
[2018-03-30] MEDS: ZINC OXIDE 20% TOPICAL OINTMENT 30 GM TUBE TP SCH (09:07)
[2018-03-30] MEDS: LYTES/YERBA SANTA 240 ML BOTTLE MM SCH (09:07)
[2018-03-30] MEDS: SCOPOLAMINE HYDROBROMIDE 1 PATCH PATCH.TD72 TD SCH (11:14)
--- NOTE | 2018-03-30 12:17 | PN ---
Progress Note (short form) - Note Progress Note: PULMONARY Pt nonverbal. Fevers down. Vital Signs Period Temp Pulse Resp BP Sys/Jay Pulse Ox Last 24 Hr 98.9 F-99.6 F 86-114 18-24 95-144/55-87 95-97 Gen: NAD, breathing nonlabored Heart: RRR Lung: decreased breath sounds at the bases Abd: soft, nontender Ext: no edema, contracted CBC, BMP 03/29/18 06:30 03/29/18 06:30 Active Medications Acetaminophen (Tylenol Oral Solution -) 650 mg PO Q6H PRN PRN Reason: FEVER Last Admin: 03/30/18 02:47 Dose: 650 mg Albuterol/Ipratropium (Duoneb -) 1 amp NEB Q4H PRN PRN Reason: SHORTNESS OF BREATH Last Admin: 03/30/18 09:00 Dose: 1 amp Amino Acids (Prosource No Carb Liquid Pkt) 30 ml PO DAILY@0800 [facility] Last Admin: 03/30/18 08:53 Dose: 30 ml Diazepam (Valium -) 2 mg PO TID [facility] Last Admin: 03/30/18 06:00 Dose: 2 mg Gabapentin (Neurontin -) 400 mg PO BID [facility] Last Admin: 03/30/18 09:06 Dose: 400 mg Heparin Sodium (Porcine) (Heparin -) 5,000 unit SQ TID [facility] Last Admin: 03/30/18 06:00 Dose: 5,000 unit Lacosamide (Vimpat -) 50 mg PO BID [facility] Last Admin: 03/30/18 09:06 Dose: 50 mg Levetiracetam (Keppra Oral Solution -) 1,500 mg PO DAILY [facility] Last Admin: 03/30/18 09:06 Dose: 1,500 mg Levetiracetam (Keppra Oral Solution -) 1,750 mg PO [facility] Last Admin: 03/29/18 21:39 Dose: 1,750 mg Levothyroxine Sodium (Synthroid -) 25 mcg PO DAILY@0700 [facility] Last Admin: 03/30/18 06:00 Dose: 25 mcg Loratadine (Claritin -) 10 mg PO DAILY [facility] Last Admin: 03/30/18 09:06 Dose: 10 mg Montelukast Sodium (Singulair -) 5 mg PO [facility] Last Admin: 03/29/18 21:38 Dose: 5 mg Multi-Ingredient Ointment (Zinc Oxide) 1 applic TP BID [facility] Last Admin: 03/30/18 09:07 Dose: 1 applic Phenobarbital (Phenobarbital Liquid -) 60 mg PEG DAILY [facility] Last Admin: 03/30/18 09:06 Dose: 60 mg Saliva Substitute (Mouthkote Solution -) 1 applic MM DAILY [facility] Last Admin: 03/30/18 09:07 Dose: 1 applic Scopolamine HBr (Transderm-Scop -) 1 patch TD Q72H [facility] Last Admin: 03/30/18 11:14 Dose: 1 patch Vancomycin HCl (Vancomycin Oral Solution) 250 mg PO Q6HPO [facility] Last Admin: 03/30/18 11:13 Dose: 250 mg A/P Acute Hypoxic Respiratory Failure improving Pneumonia likely Aspiration Severe Sepsis resolving Elevated LFTs likely ischemic injury Abdominal Distention/Constipation Seizure Disorder Mental Retardation +C diff Ag - O2 to keep SpO2 >90% - continue antiepileptics - enteral feeds - aspiration precautions - DVT prophylaxis
--- NOTE | 2018-03-30 13:36 | PN ---
Teaching Attending Note Name of Resident: Maddie Clark ATTENDING PHYSICIAN STATEMENT I saw and evaluated the patient. I reviewed the resident's note and discussed the case with the resident. I agree with the resident's findings and plan as documented with exceptions below. SUBJECTIVE: Patient seen and examined, non verbal, smiling but eyes closed. Unable to do ROS. OBJECTIVE: Vital Signs Period Temp Pulse Resp BP Sys/Jay Pulse Ox Last 24 Hr 98.9 F-99.6 F 86-114 18-24 95-144/55-87 95-97 Intake & Output 03/27/18 03/28/18 03/29/18 03/30/18 23:59 23:59 23:59 23:59 Intake Total 2448 2448 510 714 Output Total 800 900 600 550 Balance 1648 1548 -90 164 General: lying in bed in no acute distress Chest: Decreased effort Abdomen:Soft, PEG in place, no grimacing, positive bowel sounds extremities: contracted Active Medications Acetaminophen (Tylenol Oral Solution -) 650 mg PO Q6H PRN PRN Reason: FEVER Last Admin: 03/30/18 02:47 Dose: 650 mg Albuterol/Ipratropium (Duoneb -) 1 amp NEB Q4H PRN PRN Reason: SHORTNESS OF BREATH Last Admin: 03/30/18 09:00 Dose: 1 amp Amino Acids (Prosource No Carb Liquid Pkt) 30 ml PO DAILY@0800 [facility] Last Admin: 03/30/18 08:53 Dose: 30 ml Diazepam (Valium -) 2 mg PO TID [facility] Last Admin: 03/30/18 13:06 Dose: 2 mg Gabapentin (Neurontin -) 400 mg PO BID [facility] Last Admin: 03/30/18 09:06 Dose: 400 mg Heparin Sodium (Porcine) (Heparin -) 5,000 unit SQ TID [facility] Last Admin: 03/30/18 13:07 Dose: 5,000 unit Lacosamide (Vimpat -) 50 mg PO BID [facility] Last Admin: 03/30/18 09:06 Dose: 50 mg Levetiracetam (Keppra Oral Solution -) 1,500 mg PO DAILY [facility] Last Admin: 03/30/18 09:06 Dose: 1,500 mg Levetiracetam (Keppra Oral Solution -) 1,750 mg PO HS [facility] Last Admin: 03/29/18 21:39 Dose: 1,750 mg Levothyroxine Sodium (Synthroid -) 25 mcg PO DAILY@0700 [facility] Last Admin: 03/30/18 06:00 Dose: 25 mcg Loratadine (Claritin -) 10 mg PO DAILY [facility] Last Admin: 03/30/18 09:06 Dose: 10 mg Montelukast Sodium (Singulair -) 5 mg PO [facility] Last Admin: 03/29/18 21:38 Dose: 5 mg Multi-Ingredient Ointment (Zinc Oxide) 1 applic TP BID [facility] Last Admin: 03/30/18 09:07 Dose: 1 applic Phenobarbital (Phenobarbital Liquid -) 60 mg PEG DAILY [facility] Last Admin: 03/30/18 09:06 Dose: 60 mg Saliva Substitute (Mouthkote Solution -) 1 applic MM DAILY [facility] Last Admin: 03/30/18 09:07 Dose: 1 applic Scopolamine HBr (Transderm-Scop -) 1 patch TD Q72H [facility] Last Admin: 03/30/18 11:14 Dose: 1 patch Vancomycin HCl (Vancomycin Oral Solution) 250 mg PO Q6HPO [facility] Last Admin: 03/30/18 11:13 Dose: 250 mg Microbiology 03/25/18 10:00 Blood - Peripheral Venous Blood Culture - Final NO GROWTH AFTER 5 DAYS INCUBATION 03/25/18 09:45 Blood - Peripheral Venous Blood Culture - Final NO GROWTH AFTER 5 DAYS INCUBATION 03/25/18 16:00 Sputum - Expectorated Gram Stain - Final 03/25/18 16:00 Sputum - Expectorated Sputum Culture - Final NORMAL RESPIRATORY LAURA 03/25/18 13:15 Urine - Urine Clean Catch Urine Culture - Final NO GROWTH OBTAINED 03/19/18 18:00 Blood - Peripheral Venous Blood Culture - Final NO GROWTH AFTER 5 DAYS INCUBATION 03/19/18 17:50 Blood - Peripheral Venous Blood Culture - Final NO GROWTH AFTER 5 DAYS INCUBATION 03/21/18 17:30 Urine For Antigen Detection Legionella Antigen - Final 03/21/18 17:30 Urine For Antigen Detection Streptococcus pneumoniae Antigen (M - Final 03/08/18 23:11 Blood - Peripheral Venous Blood Culture - Final NO GROWTH AFTER 5 DAYS INCUBATION 03/08/18 23:11 Blood - Peripheral Venous Blood Culture - Final NO GROWTH AFTER 5 DAYS INCUBATION 03/11/18 13:33 Nares - Left Nares MRSA Screen - Final NO MRSA ISOLATED 07/09/18 23:11 Urine - Urine - Catheterized Urine Culture - Final NO GROWTH OBTAINED 03/09/18 02:41 Stool Clostridium difficile Antigen (CHLOÉ) - Final 03/09/18 02:41 Stool Clostridium difficile Toxin Assay - Final ASSESSMENT AND PLAN: 23yo M from [place] with H cerebral palsy, mental retardation, functional quadriplegia was sent to the ER with acute hypoxic respiratory failure. was found to be 88% on RA which did not improve with nasal cannula and sent to the hospital. -SIRS, ?etiology, recurrent aspiration/PNA, RN reporting increased secretions. -Acute hypoxic respiratory failure, ?PNA vs aspiration -Severe sepsis due to ?C difficile colitis, vs above -Elevated LFTs, From sepsis vs fatty infiltration, improved -Hyperkalemia, from supplementation, resolved, now hypokalemia. -Hypernatremia, improving -Bradycardia, ?Medications, autonomic dysfunction, ?sleep apnea, from relative hypothyroidism, resolved -Abnormal Thyroid function tests -Ileus, on CT , ?Chronic, tolerating Tube feeds -Cerebral palsy -Epilepsy -Hypothryoidism Plan: fevers improved, no concerns, off antibiotics. Seizure activity noted, discussed with [place], continue medications. LFts normalized. LE duplex neg d/c back to [place] today.
--- NOTE | 2018-03-30 14:50 | DS ---
Physical Exam: SUBJECTIVE: Patient seen and examined this morning at bedside. Patient did not have diarrhea last night, No acute overnight events as per nursing. OBJECTIVE: Vital Signs Period Temp Pulse Resp BP Sys/Jay Pulse Ox Last 24 Hr 98.9 F-99.6 F 86-114 18-24 95-144/55-87 95-97 PHYSICAL EXAM GENERAL: Nonverbal, No acute distress LUNGS: Diffuse Rhonchi throughout HEART: Regular rate and rhythm, S1, S2 without murmur, rub or gallop. ABDOMEN: Soft, Distended, Dullness to percussion present, Hypoactive bowel sounds, PEG tube present in LUQ with surrounding erythema and serous drainage. : [place] catheter present draining dark yellow urine EXTREMITIES: Upper extremities Contracted B/L, tremors and contractions in all extremities that self resolve LABS HOSPITAL COURSE: Date of Admission:03/09/18 Date of Discharge: 03/30/18 IMAGING - CXR: Imaging reveals scoliosis with extensive spinal support rods, weak inspiration with bilateral effusions, infiltrates and large heart. There is abdominal distention which is quite diffuse. The bones and soft tissues are intact. - CT Abdomen Pelvis: Extensive bilateral pulmonary consolidation with poor aeration of the lung ortiz. Marked air and fluid distention of the entire colon with no gross evidence of obstruction. Markedly limited study as described above. - CXR (03/24): Imaging reveals little change since 03/23/2018. Again noted is a scoliosis with spinal support rods, generalized abdominal distention with elevated right hemidiaphragm, chin artifact and no sign of infiltrate or failure. Correlation recommended. ASSESSMENT/PLAN: 23 y/o M resident of [facility] with PMHx of profound developmental delay, cerebral palsy, functional quadriplegia, non-interactive at baseline, reactive airway disease, seizure disorder was admitted for Acute hypoxic respiratory failure. 1. UTI - Temp reached 100.3 over night - UA: 3+ Leukocyte esterase, 23 WBC - Completed Ceftriaxone day 5 - ABx discontinued, Panculture off of abx - D/c'ed Levaquin 500 mg DAILY 2. Abnormal Thyroid function tests - TSH and Free T4 high - Endocrine consulted, appreciate rec's - Continue Synthroid 25 mcg PO DAILY - Repeat Thyroid function tests in 4 to 6 weeks to adjust dose as necessary 3. Acute hypoxic respiratory failure - Tachypnic, Rhonchi improved - 88% Saturation did not improve on 5L via TX at [facility] as per chart - Currently sats >95% - Continue Deep suctioning - Chest physio therapy - Frequent deep suctioning - Pulmonology consulted, appreciate rec's - ID Consulted, appreciate rec's, Will need Cefotin 4 days and Vancomycin 7 days on discharge - Lasix 40mg one time dose (03/24) - Patient continues to spike fevers, Doppler of all extremities to rule out DVT ordered 4. Diarrhea - Suspected C. Diff, Stool was positive for C. Diff antigen on this visit - Hx of stool C.Diff antigen positive but toxin negative--given oral vancomycin in 08/2017 - Continue with Oral Vancomycin day 11/04 - GI Consulted, appreciate rec's 5. Hypokalemia - Resolved. Was Hyperkalemic (5.5) - Discontinue KCL 40meq PO TID 6. HyperNatremia - Increased Free water added to tube feed 7. Hypoglycemia - Improving on tube feeds - Continue BGM 8. Ileus - Seen on CT - PEG tube already in place to suction - Abdominal distension improved - Hypoactive bowel sounds - Tolerating Tube feed - GI Consulted, appreciate rec's 9. Acute transaminitis - Elevated LFTs may be part of the sepsis syndrome - Resolved - Abdominal Ultrasound reviewed - Hepatitis panel pending 10. Seizure disorder - Continue Keppra - Tonic/clonic contractions during exam today that self resolved - Facility says these are not new - Continue Phenobarbital 60 mg PEG DAILY 11. DVT ppx - Heparin 5000U TID SQ Dispo - likely D/C to [facility] when fevers resolve Discharge Summary Reason For Visit: SEPSIS Current Active Problems Abdominal distention (Chronic) Anemia (Chronic) Diastolic CHF (Chronic) Elevated LFTs (Chronic) Hypothyroidism (Chronic) Sinus bradycardia (Chronic) Condition: Improved - Instructions Diet, Activity, Other Instructions: Antibiotic vancomycin for additional 1 week. You are started on levothyroxine 25 mcg daily. You will need Thyroid function tests in 4 weeks with your doctor. Blood tests on follow up: Thyroid function tests in 4 weeks. if you develop fever , chills or your symptoms worsen please return to ED [facility]position: [facility] - Home Medications Comprehensive Discharge Medication List: Ambulatory Orders Albuterol 0.083% Nebulizer Martha [Ventolin 0.083% Nebulizer Soln -] 1 neb NEB QID PRN 12/03/16 Clobetasol Propionate/Emoll [Clobetasol Emollient 0.05% Crm] 15 gm TP DAILY 01/14 Diazepam 2 mg PO TID 12/03/16 Gabapentin 400 mg PO BID 12/03/16 Glycopyrrolate in Water/Pf [Glycopyrrolate 1 mg/5 ml-Water] 1 mg IV BID Lacosamide [Vimpat -] 50 mg PO BID 12/03/16 Montelukast Na [Singulair -] 5 mg PO HS 12/03/16 Phenobarbital 20 mg GT DAILY 12/03/16 Scopolamine [Transderm-Scop] 1 each TD Q2D 12/03/16 Albuterol 2.5/Ipratropium 0.5 [Duoneb -] 1 neb IH QID 09/04/17 Lactulose [Cephulac -] 30 ml GT DAILY 09/04/17 levETIRAcetam [Keppra Oral Solution -] 1,500 mg GT DAILY 09/04/17 levETIRAcetam [Keppra Oral Solution -] 1,700 mg GT HS 09/04/17 Lacosamide Liquid [Vimpat Liquid -] 50 mg GT BID cup MDD 100 mg 09/18/17 Zinc Oxide 1 applic TP BID tube 09/18/17 Electrolyte,Oral [Pedialyte -] 45 ml PO WEEKLY 03/09/18 Fluticasone Propionate [Flovent Diskus] 220 mcg IH BID 03/09/18 Magnesium Citrate 120 ml PO WEEKLY 03/09/18 Magnesium Hydrox 2400MG/30Ml [Milk of Magnesia -] 30 ml GT BID 03/09/18 Protein Supplement [Promod] 30 ml GT DAILY 03/09/18 Sennosides [Senna] 17.2 mg PO DAILY 03/09/18 Levothyroxine [Synthroid -] 25 mcg PO DAILY@0700 #30 tablet 03/19/18 Vancomycin Oral Solution 125 mg PEG Q6HPO #70 ml 03/24/18 Diazepam Rectal Gel [Diastat Rectal Gel -] 20 mg RI PRN 03/30/18 Gabapentin 1,200 mg PO ASDIR 03/30/18 Ranitidine HCl 75 mg PO BID 03/30/18 - Discharge Referral Referred to [facility] No
[2018-03-30 18:51] VITALS: BP 121/78; PULSE 108; TEMP 99.4
== END 2018-03-30 19:33 | DRG 720 ==
LOC: JER 21:12 → JERBED 03-09 02:47 → JICU 03-09 08:49 → J4S 03-18 13:15
PROVIDERS: ADMIT Internal Medicine; ATTEND Hospitalist
PROC: 3E0F7GC Introduction of Other Therapeutic Substance into Respiratory Tract, Via Natural or Artificial Opening (ICD-10-PCS; 2018-03-09)
PROC: 5A09457 Assistance with Respiratory Ventilation, 24-96 Consecutive Hours, Continuous Positive Airway Pressure (ICD-10-PCS; principal; 2018-03-12)
PROC: 3E0G76Z Introduction of Nutritional Substance into Upper GI, Via Natural or Artificial Opening (ICD-10-PCS; 2018-03-18)
DX: A41.89 Other specified sepsis (principal); G80.0 Spastic quadriplegic cerebral palsy; F73 Profound intellectual disabilities; G40.802 Other epilepsy, not intractable, without status epilepticus; H47.619 Cortical blindness, unspecified side of brain; R00.1 Bradycardia, unspecified; R68.0 Hypothermia, not associated with low environmental temperature; J96.01 Acute respiratory failure with hypoxia; E87.6 Hypokalemia; E88.09 Other disorders of plasma-protein metabolism, not elsewhere classified; J69.0 Pneumonitis due to inhalation of food and vomit; R14.0 Abdominal distension (gaseous); J90 Pleural effusion, not elsewhere classified; R94.5 Abnormal results of liver function studies; R19.7 Diarrhea, unspecified; K56.7 Ileus, unspecified; M41.9 Scoliosis, unspecified; A04.72 Enterocolitis due to Clostridium difficile, not specified as recurrent; L89.892 Pressure ulcer of other site, stage 2; E87.0 Hyperosmolality and hypernatremia; D72.829 Elevated white blood cell count, unspecified; E16.2 Hypoglycemia, unspecified; K76.0 Fatty (change of) liver, not elsewhere classified; R06.82 Tachypnea, not elsewhere classified; E87.5 Hyperkalemia; D64.9 Anemia, unspecified; J45.909 Unspecified asthma, uncomplicated; R50.9 Fever, unspecified; B37.0 Candidal stomatitis; N39.0 Urinary tract infection, site not specified; E03.9 Hypothyroidism, unspecified; Z88.0 Allergy status to penicillin; Z98.890 Other specified postprocedural states; Z93.1 Gastrostomy status
CPT/HCPCS: 36415; 71045-TC-FY; 71250-TC; 74176-TC; 74177-TC; 76705-TC; 80048; 80053; 80074; 81003; 81015; 82550; 82553; 82803; 82962; 83605; 83735; 84100; 84436; 84439; 84443; 84480; 84484; 85025; 85027; 85610; 85651; 85730; 86140; 86317; 86376; 86850; 86900; 86901; 87040; 87070; 87081; 87086; 87205; 87324; 87449; 87899; 93005; 93010; 93306-TC; 93970-TC; 94640; 94660; 99283-25; J0131; J1644; J7030; J7620

== ENCOUNTER 2018-05-04 21:07 | Emergency (ER) | payer OTHER ==
--- NOTE | 2018-05-04 21:24 | PDOC ---
Rapid Medical Evaluation Time Seen by Provider: 05/04/18 21:20 Medical Evaluation: Allergies Allergy/AdvReac Type Severity Reaction Status Date / Time chloral hydrate Allergy Verified 03/08/18 21:39 piperacillin sodium Allergy Verified 03/08/18 21:39 [From Zosyn] tazobactam sodium Allergy Verified 03/08/18 21:39 [From Zosyn] 05/04/18 21:20 I have performed a brief in-person evaluation of this patient. The patient presents with a chief complaint of: [facility] Resident, h/o Cerebral palsy, p/w left nostrial bleeding since today Pertinent physical exam findings:no active bleeding noted, + erythema noted in tongue I have ordered the following:none The patient will proceed to the ED for further evaluation. Discharge Disposition - Diagnosis Bleeding nose - Referrals - Patient Instructions - Post Discharge Activity
[2018-05-04 21:30] VITALS: BMI 27.7
--- NOTE | 2018-05-05 00:06 | PDOC ---
History of Present Illness - General Chief Complaint: Nasal Bleeding Stated Complaint: NOSE BLEED Time Seen by Provider: 05/04/18 21:20 - History of Present Illness Initial Comments: 05/05/18 02:03 23-year-old male with history of MRCP, seizure disorder who uses BiPAP at night time with nosebleed from left Nare and mouth noted at [facility]. Patient is with usual mental status. Denies seizure activity, fever, chills, nausea, vomiting, abdominal pain Past History - Past Medical History Allergies/Adverse Reactions: Allergies Allergy/AdvReac Type Severity Reaction Status Date / Time chloral hydrate Allergy Verified 05/04/18 21:20 piperacillin sodium Allergy Verified 05/04/18 21:20 [From Zosyn] tazobactam sodium Allergy Verified 05/04/18 21:20 [From Zosyn] Home Medications: Ambulatory Orders Albuterol 0.083% Nebulizer Martha [Ventolin 0.083% Nebulizer Soln -] 1 neb NEB QID PRN 12/03/16 Clobetasol Propionate/Emoll [Clobetasol Emollient 0.05% Crm] 15 gm TP DAILY 01/14 Diazepam 2 mg PO TID 12/03/16 Gabapentin 400 mg PO BID 12/03/16 Glycopyrrolate in Water/Pf [Glycopyrrolate 1 mg/5 ml-Water] 1 mg IV BID Lacosamide [Vimpat -] 50 mg PO BID 12/03/16 Montelukast Na [Singulair -] 5 mg PO HS 12/03/16 Phenobarbital 20 mg GT DAILY 12/03/16 Scopolamine [Transderm-Scop] 1 each TD Q2D 12/03/16 Albuterol 2.5/Ipratropium 0.5 [Duoneb -] 1 neb IH QID 09/04/17 Lactulose [Cephulac -] 30 ml GT DAILY 09/04/17 levETIRAcetam [Keppra Oral Solution -] 1,500 mg GT DAILY 09/04/17 levETIRAcetam [Keppra Oral Solution -] 1,700 mg GT HS 09/04/17 Lacosamide Liquid [Vimpat Liquid -] 50 mg GT BID cup MDD 100 mg 09/18/17 Zinc Oxide 1 applic TP BID tube 09/18/17 Electrolyte,Oral [Pedialyte -] 45 ml PO WEEKLY 03/09/18 Fluticasone Propionate [Flovent Diskus] 220 mcg IH BID 03/09/18 Magnesium Citrate 120 ml PO WEEKLY 03/09/18 Magnesium Hydrox 2400MG/30Ml [Milk of Magnesia -] 30 ml GT BID 03/09/18 Protein Supplement [Promod] 30 ml GT DAILY 03/09/18 Sennosides [Senna] 17.2 mg PO DAILY 03/09/18 Levothyroxine [Synthroid -] 25 mcg PO DAILY@0700 #30 tablet 03/19/18 Vancomycin Oral Solution 125 mg PEG Q6HPO #70 ml 03/24/18 Diazepam Rectal Gel [Diastat Rectal Gel -] 20 mg AL PRN 03/30/18 Gabapentin 1,200 mg PO ASDIR 03/30/18 Ranitidine HCl 75 mg PO BID 03/30/18 Oxymetazoline HCl [Afrin] 1 spray NS BID #1 spray 05/05/18 Cardiac Disorders: Yes (BENIGN HTN) COPD: (OBSTRUCTIVE SLEEP APNEA) GI Disorders: Yes (GERD) HTN: Yes Seizures: Yes - Surgical History Abdominal Surgery: Yes Orthopedic Surgery: Yes - Immunization History Immunization Up to Date: Yes - Suicide/Smoking/Psychosocial Hx Smoking History: Never smoked Have you smoked in the past 12 months: No Hx Alcohol Use: No Drug/Substance Use Hx: No Substance Use Type: None Hx Substance Use Treatment: No Review of Systems - Review of Systems Able to Perform ROS?: Yes Is the patient limited Portuguese proficient: No HEENTM: Yes: Nose Bleeding *Physical Exam - Vital Signs Last Vital Signs Temp Pulse Resp BP Pulse Ox 56 L 16 88/50 96 05/04/18 21:22 05/04/18 21:22 05/04/18 21:22 05/04/18 21:22 - Physical Exam General Appearance: Yes: Appropriately Dressed HEENT: positive: Other (clot noted in the left Nare, no abrasion to tongue noted, dry blood to tongue) Respiratory/Chest: positive: Lungs Clear, Normal Breath Sounds Neurologic: positive: Other (wheelchair bound, responsive to tactile stimuli ( usual state of health)) ED Treatment Course - LABORATORY CBC & Chemistry Diagram: 05/05/18 00:00 05/05/18 00:00 Medical Decision Making - Medical Decision Making nosebleed. no active bleeding at this time. will refer to see ENT *DC/Admit/Observation/Transfer Diagnosis at time of Disposition: Epistaxis - Discharge Dispostion Disposition: HOME Condition at time of disposition: Good - Prescriptions Prescriptions: Oxymetazoline HCl [Afrin] 1 spray NS BID #1 spray - Referrals Referrals: Aries Marte MD [Staff Physician] - Call tomorrow - Patient Instructions Printed Discharge Instructions: Nosebleed Additional Instructions: use afrin to nare for nose bleed follow up with ENT as soon as possible. - Post Discharge Activity
[2018-05-05] MEDS ORDERED: BACITRACIN 0.9 GM PACKET ONE (00:18)
[2018-05-05 00:35] LABS: BASO % 0.4 % (0-2.0); HEMATOCRIT 34.7 % (35.4-49); HEMOGLOBIN 11.7 GM/dL (11.7-16.9); LYMPH % 33.5 % (8-40); MCH 32.2 pg (25.7-33.7); MCHC 33.7 g/dl (32.0-35.9); MEAN CELL VOLUME 95.4 fl (80-96); MEAN PLT VOLUME 11.6 fl (7.5-11.1); MONO % 4.3 % (3.8-10.2); NEUT % 60.8 % (42.8-82.8); PLATELET COUNT 41 K/MM3 (134-434); RBC 3.64 M/mm3 (4.00-5.60); RDW 15.7 % (11.9-15.9); WHITE BLOOD COUNT 4.6 K/mm3 (4.0-10.0)
[2018-05-05 00:47] LABS: INR 1.2 (0.83-1.09); PROTHROMBIN TIME (PATIENT) 13.6 SEC (9.7-13.0)
[2018-05-05 00:50] LABS: ACTIVATED PTT 47.2 SECONDS (25.2-36.5)
[2018-05-05 01:55] VITALS: TEMP 98.2
[2018-05-05 02:46] VITALS: BP 94/58; PULSE 58
== END 2018-05-05 02:59 | disposition home or self-care (01) ==
LOC: JER 21:07
DX: R04.0 Epistaxis (principal); G80.9 Cerebral palsy, unspecified
CPT/HCPCS: 36415; 85025; 85610; 85730; 99282-25

== ENCOUNTER 2018-05-10 03:37 | Inpatient (IN) | payer OTHER ==
[2018-05-10] MEDS ORDERED: LIDOCAINE HCL/PF 1% SDV 5ML VIAL ONE (03:52)
[2018-05-10 04:10] VITALS: BMI 30.5
[2018-05-10] MEDS ORDERED: KETAMINE HCL 500 MG/10 ML VIAL ONE (04:13)
[2018-05-10] MEDS ORDERED: SODIUM CHLORIDE 0.9% 1000 ML INFUS.BAG IV STA (04:20)
[2018-05-10] MEDS ORDERED: KETAMINE HCL 200 MG/20 ML VIAL IVPUSH ONE ×3 (04:21→12:07)
--- NOTE | 2018-05-10 04:21 | PDOC ---
Attending Attestation - Resident Resident Name: Nick Guerrero - ED Attending Attestation I have performed the following: I have examined & evaluated the patient, The case was reviewed & discussed with the resident, I agree w/resident's findings & plan - HPI HPI: 05/10/18 04:28 Pt comes with respiratory failure. He has coarse breath sounds in the right anterior lungs. Pt has likely aspiration pneumonia. He was here a week ago and at that time, his platelet count was 41. He has thrombocytopenia. Today's labs are pending. - Physicial Exam PE: 05/10/18 05:14 Pt has contractures in all 4 extremities. Pt has coarse breath sounds right >> left; sounds like aspiration pneumonia. ( pt was hooked to his tube feeds when EMS picked him up-- Iplaced PEG tube to suction and 1100 ml feeds came out) Pt is afebrile. - Critical Care Time Total Critical Care Time: 120 Critical Care Statement: The care of this patient involved high complexity decision making to prevent further life threatening deterioration of the patient 's condition and/or to evaluate & treat vital organ system(s) failure or risk of failure. - Medical Decision Making 05/10/18 05:13 Admit to ICU 05/10/18 06:21 Pt has leukopenia; thrombocytopenia; elevated BUN; normal creatinine. 05/10/18 06:22 Pt has no fever; however elevated lactic acid; junky CXR and he has leukipenia so we will treat with vanco, cefepime and zithromax. We also started levophed. 05/10/18 06:23 ICU is aware of the patient. Pt will be admitted to the hospitalist team. We will let the day ER docs know, who will let the day hospitalist team know.
--- NOTE | 2018-05-10 05:20 | PDOC ---
History of Present Illness - General Chief Complaint: Respiratory Distress Stated Complaint: RESPIRATORY PROBLEM Time Seen by Provider: 05/10/18 04:20 History Source: EMS, Old Records Exam Limitations: Clinical Condition - History of Present Illness Initial Comments: 05/10/18 05:20 Patient is a 23M with history of cerebral palsy, spastic quadriplegia, non- interactive at baseline, reactive airway disease, seizure disorder, constipation , and perforated viscous s/p laparotomy who was BIBA from [facility] for desaturations on room air. EMS reports that O2 sat was 76% on room air when they arrived. Patient was placed on a 15L/min non-rebreather, saturations reacted 85%. Unable to establish line in the field. Chart review shows that patient was evaluated in the ED 6 days ago for nosebleed. Past History - Past Medical History Allergies/Adverse Reactions: Allergies Allergy/AdvReac Type Severity Reaction Status Date / Time chloral hydrate Allergy Verified 05/10/18 04:06 piperacillin sodium Allergy Verified 05/10/18 04:06 [From Zosyn] tazobactam sodium Allergy Verified 05/10/18 04:06 [From Zosyn] Home Medications: Ambulatory Orders Albuterol 0.083% Nebulizer Martha [Ventolin 0.083% Nebulizer Soln -] 1 neb NEB Q2H PRN 12/03/16 Clobetasol Propionate/Emoll [Clobetasol Emollient 0.05% Crm] 15 gm TP DAILY PRN 12/03/16 Diazepam 2 mg GT TID 12/03/16 Gabapentin 400 mg GT BID 12/03/16 Glycopyrrolate in Water/Pf [Glycopyrrolate 1 mg/5 ml-Water] 1 mg GT BID Montelukast Na [Singulair -] 5 mg GT HS 12/03/16 Phenobarbital 15 ml GT DAILY 12/03/16 Scopolamine [Transderm-Scop] 1 each TD Q3D 12/03/16 Albuterol 2.5/Ipratropium 0.5 [Duoneb -] 1 neb IH QID 09/04/17 Lactulose [Cephulac -] 30 ml GT HS 09/04/17 levETIRAcetam [Keppra Oral Solution -] 1,500 mg GT DAILY 09/04/17 levETIRAcetam [Keppra Oral Solution -] 1,700 mg GT HS 09/04/17 Lacosamide Liquid [Vimpat Liquid -] 50 mg GT BID cup MDD 100 mg 09/18/17 Zinc Oxide 1 applic TP BID tube 09/18/17 Electrolyte,Oral [Pedialyte -] 45 ml GT FR 03/09/18 Fluticasone Propionate [Flovent Diskus] 220 mcg IH BID 03/09/18 Magnesium Citrate 120 ml GT FR 03/09/18 Magnesium Hydrox 2400MG/30Ml [Milk of Magnesia -] 30 ml GT BID 03/09/18 Protein Supplement [Promod] 30 ml GT DAILY 03/09/18 Sennosides [Senna] 17.2 mg GT HS 03/09/18 Levothyroxine [Synthroid -] 25 mcg PO DAILY@0700 #30 tablet 03/19/18 Vancomycin Oral Solution 125 mg PEG Q6HPO #70 ml 03/24/18 Diazepam Rectal Gel [Diastat Rectal Gel -] 20 mg [place] Q5M PRN 03/30/18 Gabapentin 1,200 mg PO ASDIR 03/30/18 Ranitidine HCl 75 mg GT BID 03/30/18 Calcium Carbonate/Vitamin D3 [Calcium 600 + Vit D 200 Tablet] 1 each GT BID 06/17 Glycopyrrolate [Robinul -] 1 mg GT HS 05/10/18 Ibuprofen Oral Suspension [Motrin Oral Suspension -] 100 mg GT Q6H PRN 05/10/18 Levalbuterol HCl 1.25 mg IH Q8H PRN 05/10/18 Nut.tx.impaired Digest/Fiber [Vital AF 1.2 James Liquid] 750 ml GT SUMOTUWETHSA Polyethylene Glycol 3350 [Clearlax] 17 gm GT BID 05/10/18 Cardiac Disorders: Yes (BENIGN HTN) COPD: No (OBSTRUCTIVE SLEEP APNEA) GI Disorders: Yes (GERD) HTN: Yes Seizures: Yes - Surgical History Abdominal Surgery: Yes Orthopedic Surgery: Yes - Immunization History Immunization Up to Date: Yes - Suicide/Smoking/Psychosocial Hx Smoking History: Never smoked Have you smoked in the past 12 months: No Information on smoking cessation initiated: No Hx Alcohol Use: No Drug/Substance Use Hx: No Substance Use Type: None Hx Substance Use Treatment: No Review of Systems - Review of Systems Able to Perform ROS?: No (2/2 clinical condition) *Physical Exam - Vital Signs Last Vital Signs Temp Pulse Resp BP Pulse Ox 86.4 F L 44 L 15 76/48 100 05/10/18 04:45 05/10/18 04:45 05/10/18 04:45 05/10/18 04:45 05/10/18 04:45 - Physical Exam Comments: 05/10/18 05:24 GENERAL: Obtunded, no movement of extremities HEAD: No signs of trauma, abnormal morphology EYES: PERRLA, sclera anicteric, conjunctiva clear ENT: Auricles normal inspection, hearing grossly normal, nares patent with blood , oropharynx clear without exudates. Moist mucosa NECK: Normal ROM, supple, no lymphadenopathy, JVD, or masses LUNGS: Apneic, coarse breath sounds bilaterally HEART: Bradycardic, normal S1 and S2, no murmurs, rubs or gallops, peripheral pulses normal and equal bilaterally. ABDOMEN: Distended. No guarding, no rebound. No masses EXTREMITIES: Contracted, no edema NEUROLOGICAL: Obtunded, intubated, no movement of extremities SKIN: Warm, Dry, normal turgor, no rashes or lesions noted. Procedures - Intubation Time of Intubation: 04:30 Intubation Method: orotracheal Blade used: Mac (4) Tube Size (Fr): 6.0 Medications: Ketamine Tube position confirmed by: Direct visualization, CO2 detector, Chest x-ray, Breath sounds Breath Sounds after Intubation: equal Intubation Complications: oral-unsuccessful attempt (Unsuccessful x2, successfully bagged, no desats), nosebleed, apparent aspiration, oralbleed Post Intubation Xray: Yes Progress/Xray Impression: Patient has anterior airway with abnormal anatomy ED Treatment Course - LABORATORY CBC & Chemistry Diagram: 05/10/18 05:16 05/10/18 05:16 - RADIOLOGY Radiology Studies Ordered: Category Date Time Status CHEST X-RAY PORTABLE* [RAD] Stat Radiology 05/10/18 04:21 Taken - Medications Given in the ED: ED Medications Discontinued Medications Generic Name Dose Route Start Last Admin Trade Name Freq PRN Reason Stop Dose Admin Ketamine HCl 50 mg 05/10/18 04:21 05/10/18 04:20 Ketalar - IVPUSH 05/10/18 04:22 50 mg ONCE ONE Administration Sodium Chloride 1,361 ml 05/10/18 04:20 05/10/18 04:20 Normal Saline - 30 ml/kg (1361 ml) 05/10/18 04:21 1,361 ml IV Administration ONCE STA Medical Decision Making - Critical Care Time Total Critical Care Time (minutes): 120 Critical Care Statement: The care of this patient involved high complexity decision making to prevent further life threatening deterioration of the patient 's condition and/or to evaluate & treat vital organ system(s) failure or risk of failure. - Medical Decision Making 05/10/18 05:27 Patient is 23M with history of cerebral palsy, spastic quadriplegia, non- interactive at baseline, reactive airway disease, seizure disorder, constipation , and perforated viscous s/p laparotomy who was BIBA from [facility] with respiratory failure. Patient has distended abdomen with 1.2L suctioned from g tube. Suspect aspiration event. A - Airway placed after 3 attempts. Complicated by aspiration, blood. Patient is difficult intubation. Achieved with poor visualization. B - Coarse breath sounds, initially apneic, equal after intubation. Saturations in high 90s after intubation. C - Blood pressures 70s/50s. Initial IV access failed. IO placed. Fluid resuscitated with 1.5L, estimate this is ~30-40cc/kg. Blood pressures still soft. Levophed drip initiated through IO. Will titrate D - Equal pupils, no movement, spastic paralysis, at baseline per review. Sedated with ketamine given hypotension E - Cold, no injuries, karen hugger placed, temp 84 degrees. CXR shows proper tube placement with bilateral white out concerning for ARDS. EKG shows sinus bradycardia with 1st degree AV block (IL 216) rate of 45, ST depressions in V2/V3 concerning for anterior ischemia. Likely secondary to hypoxic and hypothermic event. Given >1L suctioned from patient, suspect possible obstruction, complicated by patient's baseline distention. Suction decompressing stomach. Ventilator support , warming, starting levophed. 05/10/18 06:01 MAP>65 achieved, HR in 50s. CBC shows white count of 0.9, will cover with cefepime/vanc/azithro as last broad coverage used by ID. Platelets 11. Will transfuse platelets. 05/10/18 06:27 Approved for ICU by Dr Shaw. 05/10/18 07:[address] Anika Roth for medicine, Dr Rodriguez for EM. *DC/Admit/Observation/Transfer Diagnosis at time of Disposition: Aspiration into airway, Septic shock - Discharge Dispostion Condition at time of disposition: Critical Decision to Admit order: Yes - Referrals - Patient Instructions - Post Discharge Activity
[2018-05-10 05:22] LABS: URINE APPEARANCE CLEAR; URINE BILIRUBIN NEGATIVE (<2.0 mg/dL); URINE COLOR YELLOW; URINE GLUCOSE (UA) NEGATIVE (NEGATIVE); URINE KETONE NEGATIVE (NEGATIVE); URINE LEUK ESTERASE NEGATIVE (NEGATIVE); URINE NITRITE NEGATIVE (NEGATIVE); URINE PROTEIN NEGATIVE (NEGATIVE); URINE UROBILINOGEN NEGATIVE mg/dL (0.2-1.0)
[2018-05-10 05:36] LABS: HEMATOCRIT 33.8 % (35.4-49); MCH 32.7 pg (25.7-33.7); MCHC 34.7 g/dl (32.0-35.9); MEAN CELL VOLUME 94.4 fl (80-96); MEAN PLT VOLUME 9.7 fl (7.5-11.1); RBC 3.58 M/mm3 (4.00-5.60); RDW 15.6 % (11.9-15.9)
[2018-05-10] MEDS ORDERED: NOREPINEPHRINE BITARTRATE 4,000 MCG in DEXTROSE 5%-WATER - 496 ML IV SCH ×3 (05:45→12:15)
[2018-05-10] MEDS ORDERED: VANCOMYCIN 1,000 MG in DEXTROSE 5%-WATER - 250 ML IVPB ONE (05:59)
[2018-05-10] MEDS ORDERED: CEFEPIME HCL/D5W 2 GM/50 ML BAG IVPB ONE (05:59)
[2018-05-10] MEDS ORDERED: AZITHROMYCIN IVPB 500 MG in DEXTROSE 5%-WATER - 250 ML IVPB ONE (05:59)
[2018-05-10 06:02] LABS: ALBUMIN 2.1 g/dl (3.4-5.0); ANION GAP 8 MMOL/L (8-16); BILIRUBIN,TOTAL 0.3 mg/dL (0.2-1.0); BLOOD UREA NITROGEN 45 mg/dL (7-18); CALCIUM 8.7 mg/dL (8.5-10.1); CHLORIDE 89 mmol/L (98-107); CO2 39 mmol/L (21-32); CREATININE 0.6 mg/dL (0.7-1.3); GLUCOSE,RANDOM 104 mg/dL (74-106); SGPT/ALT 82 U/L (12-78); SODIUM 136 mmol/L (136-145); TOT PROT 5.1 g/dl (6.4-8.2)
[2018-05-10 06:04] LABS: ALK PHOS 95 U/L (45-117)
[2018-05-10 06:05] LABS: WHITE BLOOD COUNT 0.7 K/mm3 (4.0-10.0)
[2018-05-10 06:06] LABS: HEMOGLOBIN 11.7 GM/dL (11.7-16.9); INR 1.33 (0.83-1.09); PLATELET COUNT 10 K/MM3 (134-434)
[2018-05-10] MEDS ORDERED: KETAMINE HCL 500 MG/10 ML VIAL IV ONE (06:06)
[2018-05-10 06:09] LABS: ACTIVATED PTT 47.6 SECONDS (25.2-36.5)
[2018-05-10 06:15] LABS: POTASSIUM 3.5 mmol/L (3.5-5.1); SGOT/AST 48 U/L (15-37)
[2018-05-10] MEDS ORDERED: VANCOMYCIN 1 GRAM (PRE-DOCKED) 1,000 MG/250 ML BAG IVPB ONE (06:17)
[2018-05-10] MEDS ORDERED: AZITHROMYCIN IVPB 250 ML IVPB ONE (06:17)
[2018-05-10] MEDS ORDERED: EPINEPHrine 1:10,000 (P-F SYR) 1 MG/10 ML DISP.SYRIN ONE (06:47)
[2018-05-10] MEDS ORDERED: EPINEPHrine/PF 1 MG/1 ML (1:1,000) AMPULE ONE (06:58)
[2018-05-10] MEDS ORDERED: ACETAMINOPHEN 1000 MG/100 ML VIAL (NON FORMULARY) IVPB PRN (08:21)
[2018-05-10] MEDS ORDERED: SODIUM CHLORIDE 1,000 ML IV SCH (08:45)
--- NOTE | 2018-05-10 08:55 | PN ---
Teaching Attending Note Name of Resident: Anika Roth ATTENDING PHYSICIAN STATEMENT I saw and evaluated the patient. I reviewed the resident's note and discussed the case with the resident. I agree with the resident's findings and plan as documented. SUBJECTIVE: CC: transferred form [place] due to hypoxia HPI: Unfortunate 23 y/o man with h/o cerebral palsy, seizure disorder, ex lap , spastic quadriplegisa, reactive airway disease, recurrent PNAs and aspiration , Abx allergy, who was sent to ER due to hypoxia. at EMS arrival SAt O2 was in 70s , no IV access was established and no air way was established. in ER intubation was successful after few trials with subsequent traumatic bleed. IO was established and GT was suctioned ( 1.2 L ) . BP dropped and patient was started on levophed after 1.5 L bolus . He was found to be hypothermic, and heating blanket was started. He was found to be bradycardic with 1st degree Av block on EKG and TWI in laterla leads ( reviewed ) , . he was given atropine due to HR down to 20s. cxray showed b/l consolidations ( reviewed) . he was given vanco, cefepime and azithro in ER, and developed tongue/lip swelling --> was given epi and solumedrol. currently , he is still in ER, on Vent ( Ac, Peep 8, TV 350, ,R 13 ) , levo, intubated, awake, nasal bleed. sat O2 in high 80s but poor wave , MAP 76 , HR 45. OBJECTIVE: Intubated, awake, calm, nasal bleed, tongue protrusion. karen hugger . contracted. round equal pupils. CV: course breath sounds , regular. not able to appreciate murmurs. Lungs : anteriorly with rales. abd : decreased BS, ND. no edema on LE . Lines: R IO, L EJ. Imaging: EKG , cxray reviewed. ASSESSMENT AND PLAN: Unfortunate 23 y/o man with h/o cerebral palsy, seizure disorder, ex lap , spastic quadriplegisa, reactive airway disease, recurrent PNAs and aspiration , c diff ( + Ag ) , Abx allergy, who was sent to ER due to hypoxia. he was found to be in shock, hypothermic, with acute hypoxic resp failure. 1- Acute hypoxic resp failure, due to possible aspiration and possible ARDS.Not able to obtain ABG. - cont vent support - Abx for aspiration PNA. will d/w ID due to allergic reaction earlier , likely to cefepime. will suggest vanco and clinda. - ABg when able - ICU monitoring 2- Shock: likely septic . unlikely cardiogenic shock. - cont levophed. if significant andressa and continued hypotension , can start epi gtt - check Echo . - IVF , NS @ 75 for now 3- pancytopenia: likely due to sepsis . - significant thrombocytopenia and bleeding - transfuse plt . 1 unit - check fibrinoger. r/o DIC. if fibrinogen is low , will give cryo - repeat labs . - hold ibuprofen ( given at [facility] ) 4- Transaminitis ; likely due to sepsis . monitor 5- h/o seizure: will confirm his meds with [facility] records and resume all of them. 6- Code status : full code Critical patient. Critical Care Total Critical Care Time (in minutes): 60 Critical Care Statement: The care of this patient involved high complexity decision making to prevent further life threatening deterioration of the patient 's condition and/or to evaluate & treat vital organ system(s) failure or risk of failure.
[2018-05-10] MEDS ORDERED: CLINDAMYCIN 600MG PREMIX IVPB 600 MG/50 ML BAG IVPB SCH (09:30)
[2018-05-10] MEDS ORDERED: CLINDAMYCIN 600MG PREMIX IVPB 600 MG/50 ML BAG IVPB ONE (09:33)
[2018-05-10] MEDS ORDERED: AZTREONAM 1 GM in DEXTROSE 5%-WATER - 50 ML IVPB SCH ×2 (10:00→22:00)
[2018-05-10] MEDS ORDERED: MUPIROCIN 2% TOPICAL OINTMENT FOR DECOLONIZATION NS SCH (10:00)
[2018-05-10 10:08] LABS: BASO % 0.5 % (0-2.0); CORRECTED WBC 0.49 K/mm3; EOS % 1.4 % (0-4.5); HEMATOCRIT 30.8 % (35.4-49); HEMOGLOBIN 10.2 GM/dL (11.7-16.9); MCH 32.4 pg (25.7-33.7); MCHC 33.2 g/dl (32.0-35.9); MEAN CELL VOLUME 97.7 fl (80-96); MEAN PLT VOLUME 9.8 fl (7.5-11.1); MONO % 1.3 % (3.8-10.2); NEUT % 47.8 % (42.8-82.8); RBC 3.16 M/mm3 (4.00-5.60); RDW 15.8 % (11.9-15.9)
[2018-05-10] MEDS ORDERED: DIAZEPAM ACUDIAL 12.5-15-20 20 MG KIT RC PRN (10:10)
[2018-05-10] MEDS ORDERED: SCOPOLAMINE HYDROBROMIDE 1 PATCH PATCH.TD72 TD SCH (10:15)
[2018-05-10] MEDS ORDERED: PHENOBARBITAL 20 MG/5 ML LIQUID GT SCH (10:15)
[2018-05-10] MEDS ORDERED: levETIRAcetam 500 MG/5 ML ORAL SOLUTION (UNIT-DOSE CUPS) GT SCH ×2 (10:15→22:00)
[2018-05-10] MEDS ORDERED: GABAPENTIN 400 MG CAPSULE (FP) PO SCH ×2 (10:15→11:24)
[2018-05-10] MEDS ORDERED: GABAPENTIN 400 MG CAPSULE (FP) GT SCH (10:15)
[2018-05-10] MEDS ORDERED: Lacosamide 50 MG/5 ML ORAL SOLUTION UNIT CUPS GT SCH (10:15)
--- NOTE | 2018-05-10 10:24 | EKG ---
Test Reason : Blood Pressure : / mmHG Vent. Rate : 054 BPM Atrial Rate : 054 BPM P-R Int : 286 ms QRS Dur : 130 ms QT Int : 446 ms P-R-T Axes : 041 039 -51 degrees QTc Int : 422 ms SINUS BRADYCARDIA WITH 1ST DEGREE A-V BLOCK NON-SPECIFIC INTRA-VENTRICULAR CONDUCTION BLOCK CANNOT RULE OUT INFERIOR INFARCT (CITED ON OR BEFORE 16-MAR-2018) T WAVE ABNORMALITY, CONSIDER ANTERIOR ISCHEMIA ABNORMAL ECG WHEN COMPARED WITH ECG OF 17-MAR-2018 09:01, [place] INTERVAL HAS INCREASED Confirmed by JOCELYNE RINALDI MD ([id number]) on 05/10/2018 10:24:07 AM Referred By: Confirmed By:JOCELYNE RINALDI MD
[2018-05-10 10:25] LABS: ADD RBC MORPHOLOGY YES
[2018-05-10 10:27] LABS: PLATELET COUNT 11 K/MM3 (134-434); WHITE BLOOD COUNT 0.6 K/mm3 (4.0-10.0)
[2018-05-10 10:28] LABS: ALBUMIN 1.8 g/dl (3.4-5.0); ANION GAP 17 MMOL/L (8-16); BLOOD UREA NITROGEN 42 mg/dL (7-18); CHLORIDE 89 mmol/L (98-107); CO2 28 mmol/L (21-32); SGOT/AST 49 U/L (15-37); SGPT/ALT 76 U/L (12-78); SODIUM 134 mmol/L (136-145)
[2018-05-10 10:31] LABS: ALK PHOS 82 U/L (45-117); BILIRUBIN,TOTAL 0.4 mg/dL (0.2-1.0); CALCIUM 7.5 mg/dL (8.5-10.1); CREATININE 0.9 mg/dL (0.7-1.3); TOT PROT 4.3 g/dl (6.4-8.2)
[2018-05-10 10:36] LABS: GLUCOSE,RANDOM 327 mg/dL (74-106); POTASSIUM 2.6 mmol/L (3.5-5.1)
--- NOTE | 2018-05-10 10:37 | PN ---
Progress Note (short form) - Note Progress Note: ID Consult dictated Septic Shock Hypothermia Neutropenia/ pancytopenia Lactic acidosis Probable aspiration pneumonia Antibiotic allergies Await c/s Continue supportive measures Empiric clindamycin/ aztreonam + stat dose gentamicin Prognosis poor
--- NOTE | 2018-05-10 10:42 | HP ---
CHIEF COMPLAINT: Hypoxic PCP: Dr. Pride HISTORY OF PRESENT ILLNESS: Patient is a 23 year old male from [facility] with a PMHx of cerebral palsy, seizure disorder, spastic quadriplegia, restrictive airway disease, constipation who was BIBEMS after his 02 was found to be hypoxic with an 02 sat of 75% on room air. As per EMS, patient's 02 saturation went up to 85% on a nonrebreather with several unsuccessful intubation and IV line attempts. Patient arrived in the ED and was found to be hypothermic at 83.6 F, hypotensive , leukopenic, thrombocytopenic. G tube suctioning was done and 1.2 L of fluids was suctioned. Patient was successfully intubated after a few attempts causing a traumatic bleeding. An IO was successfully established. Patient was given IV fluids but blood pressure still remained low. Levophed drip was started and karen huggers were placed. Patient on EKG was found to have bradycardia with 1st degree AV block and T-wave inversions in the lateral leads. He was given a couple of rounds of atropine and has been maintaining a Heart rate in the 40-50' s. Chest X-Ray revealed bilateral infiltrates, likely representing ARDS. Patient was given IV Abx vancomycin, Cefepime, and Azithromyin but then developed swelling of the tongue and lip. He was then given Solu-medrol and Epi. ER course was notable for: (1) Chest X-ray revealing Bilateral infiltrates (2) Leukopenia, thrombocytopenia, platelets ordered. (3) Septic shock with IV fluids, IV ABX given, Recent Travel: None PAST MEDICAL HISTORY: PMHx of cerebral palsy, seizure disorder, spastic quadriplegia, restrictive airway disease, constipation PAST SURGICAL HISTORY: Exploratory Lab (08/2017) Social History: Unable to obtain Family History: Unable to obtain Allergies chloral hydrate Allergy (Verified 05/10/18 04:06) piperacillin sodium [From Zosyn] Allergy (Verified 05/10/18 04:06) tazobactam sodium [From Zosyn] Allergy (Verified 05/10/18 04:06) HOME MEDICATIONS: Home Medications Medication Instructions Recorded Albuterol 0.083% Nebulizer Martha 1 neb NEB Q2H PRN 12/03/16 [Ventolin 0.083% Nebulizer Soln -] Clobetasol Propionate/Emoll 15 gm TP DAILY PRN 12/03/16 [Clobetasol Emollient 0.05% Crm] Diazepam 2 mg GT TID 12/03/16 Gabapentin 800 mg GT BID 12/03/16 Glycopyrrolate in Water/Pf 1 mg GT BID 12/03/16 [Glycopyrrolate 1 mg/5 ml-Water] Montelukast Na [Singulair -] 5 mg GT HS 12/03/16 Phenobarbital 15 ml GT DAILY 12/03/16 Scopolamine [Transderm-Scop] 1 each TD Q3D 12/03/16 Albuterol 2.5/Ipratropium 0.5 1 neb IH QID 09/04/17 [Duoneb -] Lactulose [Cephulac -] 30 ml GT HS 09/04/17 levETIRAcetam [Keppra Oral 1,500 mg GT DAILY 09/04/17 Solution -] levETIRAcetam [Keppra Oral 1,700 mg GT HS 09/04/17 Solution -] Lacosamide Liquid [Vimpat Liquid -] 50 mg GT BID cup MDD 100 mg 09/18/17 Electrolyte,Oral [Pedialyte -] 45 ml GT FR 03/09/18 Fluticasone Propionate [Flovent 220 mcg IH BID 03/09/18 Diskus] Magnesium Citrate 120 ml GT FR 03/09/18 Magnesium Hydrox 2400MG/30Ml [Milk 30 ml GT BID 03/09/18 of Magnesia -] Protein Supplement [Promod] 30 ml GT DAILY 03/09/18 Sennosides [Senna] 17.2 mg GT HS 03/09/18 Levothyroxine [Synthroid -] 25 mcg PO DAILY@0700 #30 tablet 03/19/18 Diazepam Rectal Gel [Diastat 20 mg [place] Q5M PRN 03/30/18 Rectal Gel -] Gabapentin 1,200 mg PO ASDIR 03/30/18 Ranitidine HCl 150 mg GT BID 03/30/18 Calcium Carbonate/Vitamin D3 1 each GT BID 05/10/18 [Calcium 600 + Vit D 200 Tablet] Glycopyrrolate [Robinul -] 1 mg GT HS 05/10/18 Nut.tx.impaired Digest/Fiber 750 ml GT SUMOTUWETHSA 05/10/18 [Vital AF 1.2 James Liquid] Polyethylene Glycol 3350 [Clearlax] 17 gm GT BID 05/10/18 REVIEW OF SYSTEMS Unable to obtain PHYSICAL EXAMINATION Vital Signs - 24 hr 05/10/18 05/10/18 05/10/18 04:07 04:26 04:45 Temperature 84.6 F L 86.4 F L Pulse Rate 48 L 44 L Pulse Rate [ 44 L Left Radial] Respiratory 22 16 15 Rate Blood Pressure 64/47 76/48 Blood Pressure 76/48 [Right Arm] O2 Sat by Pulse 85 L 100 Oximetry (%) 05/10/18 05/10/18 05/10/18 05:45 06:00 06:05 Temperature Pulse Rate 52 L Pulse Rate [ 52 L 52 L Left Radial] Respiratory 15 16 Rate Blood Pressure 76/48 Blood Pressure 139/88 101/50 [Right Arm] O2 Sat by Pulse 96 94 L Oximetry (%) 05/10/18 05/10/18 05/10/18 06:30 07:25 07:31 Temperature Pulse Rate Pulse Rate [ 50 L Left Radial] Respiratory 16 35 H 38 H Rate Blood Pressure Blood Pressure 101/51 [Right Arm] O2 Sat by Pulse 89 L 88 L Oximetry (%) 05/10/18 05/10/18 05/10/18 07:35 07:36 07:39 Temperature Pulse Rate 49 L Pulse Rate [ 49 L 49 L Left Radial] Respiratory 36 H Rate Blood Pressure 55/38 Blood Pressure 55/38 70/51 [Right Arm] O2 Sat by Pulse 86 L 93 L Oximetry (%) 05/10/18 05/10/18 05/10/18 07:50 07:55 08:29 Temperature 83.4 F L 85 F L Pulse Rate 46 L 50 L Pulse Rate [ 46 L 35 L 50 L Left Radial] Respiratory 30 H 33 H 28 H Rate Blood Pressure 43/32 50/33 Blood Pressure 43/32 70/49 50/33 [Right Arm] O2 Sat by Pulse 88 L 96 Oximetry (%) 05/10/18 05/10/18 05/10/18 08:33 09:10 09:30 Temperature 84.6 F L 85.8 F L 86.2 F L Pulse Rate Pulse Rate [ 79 57 L 52 L Left Radial] Respiratory 38 H 28 H 17 Rate Blood Pressure Blood Pressure 88/67 55/30 83/24 [Right Arm] O2 Sat by Pulse 96 94 L 95 Oximetry (%) 05/10/18 05/10/18 09:45 09:47 Temperature 87.4 F L 87.4 F L Pulse Rate 57 L Pulse Rate [ 55 L 57 L Left Radial] Respiratory 16 20 Rate Blood Pressure 59/28 Blood Pressure 68/44 59/28 [Right Arm] O2 Sat by Pulse 94 L 94 L Oximetry (%) GENERAL: Intubated, Awake, bleeding from intubation site and nostril bilaterally, Contracted in UE and LE HEAD: Normal with no signs of trauma. EYES: Pupils equal, round and reactive to light,sclera anicteric, conjunctiva clear. No lid lag. EARS, NOSE, THROAT: Intubated with tongue and lip swelling. Unable to vision uvula NECK: (-) lymphadenopathy, (-) JVD LUNGS: Intubated with coarse breath sounds bilaterally HEART: Bradycardic with regular rhythm, normal S1 and S2 without murmur, rub or gallop. ABDOMEN: Soft, distended, decreased bowel sounds, no guarding, surgical incisional scar, G-tube UPPER EXTREMITIES: Contracted bilaterally LOWER EXTREMITIES: Contracted bilaterally. No peripheral edema. NEUROLOGICAL: Unable to assess LINES: Left EJ, Right IO VENT: 350, 12, 16, 100% Laboratory Results - last 24 hr CBC,CMP CBC, BMP 05/10/18 09:42 05/10/18 09:42 05/10/18 05/10/18 05:16 05:16 Lactic Acid 3.4 H* AST 48 H D ALT 82 H D Troponin I < 0.02 Urine Color Yellow 05/10/18 05:07 Urine Appearance Clear 05/10/18 05:07 Urine pH 5.0 (5.0-8.0) 05/10/18 05:07 Ur Specific [place] 1.014 (1.001-1.035) 05/10/18 05:07 Urine Protein Negative (NEGATIVE) 05/10/18 05:07 Urine Glucose (UA) Negative (NEGATIVE) 05/10/18 05:07 Urine Ketones Negative (NEGATIVE) 05/10/18 05:07 Urine Blood Negative (NEGATIVE) 05/10/18 05:07 Urine Nitrite Negative (NEGATIVE) 05/10/18 05:07 Urine Bilirubin Negative (<2.0 mg/dL) 05/10/18 05:07 Ur Leukocyte Esterase Negative (NEGATIVE) 05/10/18 05:07 IMAGES: Chest X-Ray (05/10/18): Bilateral pulmonary infiltrates ASSESSMENT/PLAN: Patient is a 23 year old male from [facility] who was BIBEMS for hypoxia and was found to be in Septic Shock with ARDS. Patient admitted to ICU for further monitoring and management. Acute Hypoxic Respiratory Failure due to possible Aspiration PNA with ARDS -Chest X-Ray revealing bilateral pulmonary infiltrates, showing a likely picture of ARDS. Will need ABG when possible -Continue vent support with low TV and High PEEP. Maintain Plateau pressure <30 -IV Antibiotics with vancomycin 750mg Q12, Aztreonam 1gm Q12H, Clindamycin 600mg IVPB Q6H, IV fluids. -ICU Monitoring Septic Shock Secondary to Aspiration PNA -Hypothermic at 83.6 F, Leukopenic at 0.7, Hypotensive with no adequate response to IV fluids, Lactic acidosis -IV NS @75mls/hr -IV ABX with vancomycin 750mg Q12, Aztreonam 1gm Q12H, Clindamycin 600mg IVPB Q6H with stat dose Gentamicin 80mg. Will need to monitor for allergic reactions as patient was given Cefepime and had lip/tongue swelling. -IV Fluids @75mls/hr -Pressure support with Levophed, currently maintaining map >65 with 2mcgs -Continue Ventilation support -ABG when possible. -ECHO ordered -Possibly CT of abdomen -Blood cultures pending -ID consult appreciated Pancytopenia -Likely secondary to Septic Shock but will need to r/o DIC -WBC 0.7, Platelets 10, significant bleeding from nose and mouth (may also be due to traumatic intubation) -Fibrinogen and D dimer ordered, INR/PTT slightly elevated -If Fibrinogen <100 will give Cryo -Slight elevation in INR/PTT, will repeat lab and hold on FFP until repeat labs -1 unit of platelets ordered -Repeat labs Q6H Bradycardia w/ First degree heart block -Likely secondary to Septic shock and hypothermia -Atropine given in the ED and is maintaining a HR between 40s-50's -Will hold off on beta blockets -Continue ICU and continuous cardiac monitoring Hypokalemia -KCl in IV fluids -Check Magnesium -Magnesium Sulfate 2gm given -Continue to monitor Potassium Transaminitis -Mildly elevated, likely secondary to Septic Shock -Continue to monitor CMP Seizure Disorder -Continue Keppra 1500mg GQD and 1700mg GHS -Valium 2mg GTID -Vimpat 50mg GBID -Phenobarbitol 60mg GQD Cerebral Palsy with Spastic Quadriplegia -Continue Gabapentin 800mg BID in morning and evening and 1200 in the afternoon Hypothyroidism -Continue Levothyroxine Reactive Airway Disease -Albuterol Sulfate QID -Singulair Constipation -Continue home medication Lactulose 20gm GTHS -Miralax daily -Senna F/E/N -IV NS @75mls/hr -Hypokalemic. replete and repeat -NPO Prophylaxis -High Risk. SCD's for now -GI prophylaxis. Disposition -Full code. Patient's mother is involved in patient care. Paper work faxed with Proof mother is decision maker -ICU Monitoring Visit type - Emergency Visit Emergency Visit: Yes ED Registration Date: 05/10/18 Care time: The patient presented to the Emergency Department on the above date and was hospitalized for further evaluation of their emergent condition. - New Patient This patient is new to me today: Yes Date on this admission: 05/10/18 - Critical Care Critical Care patient: Yes Total Critical Care Time (in minutes): 45 Critical Care Statement: The care of this patient involved high complexity decision making to prevent further life threatening deterioration of the patient 's condition and/or to evaluate & treat vital organ system(s) failure or risk of failure. Hospitalist Screening - Colonoscopy Questionnaire Colonoscopy Questionnaire: Colonoscopy Questionnaire - Patient: 50 - 75 years old and never had a screening colonoscopy: Unknown History of colon or rectal polyps, or CA: Unknown History of IBD, Crohn's disease or UC: Unknown History of abdominal radiation therapy as a child: Unknown - Relative: 1 with colon or rectal CA, or polyps at age 60 or younger: Unknown Colon or rectal CA diagnosed at age 45 or younger: Unknown Multiple relatives with colon or rectal CA: Unknown - Outcome: Screening Result: Negative Screen
[2018-05-10] MEDS ORDERED: EPINEPHrine 1:1,000 - 30,000 MCG in DEXTROSE 5%-WATER - 220 ML IVPB SCH (10:45)
[2018-05-10] MEDS ORDERED: SODIUM CHLORIDE 1,000 ML with POTASSIUM CHLORIDE 40 MEQ IVPB SCH (10:46)
[2018-05-10] MEDS ORDERED: MAGNESIUM SULF 50% (8.12 MEQ/2 ML-1 GM VIAL) IVPB ONE (11:15)
[2018-05-10] MEDS ORDERED: GENTAMICIN 80 MG PREMIXED IVPB 80 MG/100 ML BAG IVPB ONE ×2 (11:15→12:28)
[2018-05-10 11:19] LABS: PHOSPHOROUS 4.2 mg/dL (2.5-4.9)
[2018-05-10] MEDS ORDERED: POTASSIUM CHLORIDE 40 MEQ in SODIUM CHLORIDE 1,000 ML IVPB SCH (11:40)
[2018-05-10 11:47] LABS: MAGNESIUM 3.7 mg/dL (1.8-2.4)
[2018-05-10] MEDS ORDERED: ALBUTEROL SO4 2.5/IPRATROPIUM 0.5 INH SOL 3 ML VIAL.NEB. NEB SCH (12:00)
[2018-05-10 12:37] LABS: ANISOCYTOSIS 1+; MACROCYTOSIS 1+
--- NOTE | 2018-05-10 12:56 | CONS ---
DATE OF CONSULTATION: DATE OF DICTATION: 05/10/2018 INFECTIOUS DISEASE CONSULTATION History was obtained from the chart, as the patient cannot give a history. He is a 23-year-old male with a history of cerebral palsy, mental retardation, nonverbal at baseline, now evaluated for septic shock. The patient was brought in by ambulance from the alf after he was noted to be hypoxemic with an O2 saturation of 78% on room air. He was evaluated in the emergency room where a chest x-ray showed bilateral infiltrates suggestive of ARDS. According to the notes, approximately 1200 mL of tube feeding was aspirated from his feeding gastrostomy. His course was complicated by hypotension, hypothermia, bradycardia. He was given fluids and pressors. He was empirically treated with vancomycin, cefepime, and Zithromax. Patient developed onset of tongue and lip swelling after infusion of one of the antibiotic agents. At the present time, he is intubated. He is unresponsive. He remains hypotensive and bradycardic. Tyson blood is noted from the nares. PAST MEDICAL HISTORY: Positive for cerebral palsy, mental retardation, quadriplegia, seizure disorder, hypertension, gastroesophageal reflux. PAST SURGICAL HISTORY: Status post suspected perforated viscous, exploratory laparotomy. ALLERGIES: ZOSYN AND CHLORAL HYDRATE. SOCIAL HISTORY: He is a alf resident. He is totally dependent in activities of daily living. He is nonverbal at baseline. His last hospital admission was from March 09 through March 30, 2018. LABORATORY DATA: White count 0.7, hematocrit 33.8, platelet count 10. BUN 45, creatinine 0.6. Lactic acid 3.4. INR 1.3. Urinalysis negative leukocyte esterase. Total bilirubin 0.3, alkaline phosphatase 95, AST 48, ALT 82. Blood and urine cultures are pending Chest x-ray bilateral infiltrates consistent with ARDS. PHYSICAL EXAMINATION: General: He is intubated, epistaxis is noted. Vital Signs: Temperature 84.6, blood pressure 88/67, pulse 79 regular, respirations 38 per minute. Eyes: Anicteric. Heart: Sounds S1, S2. Lungs: Air entry bilaterally. Abdomen: Soft. No tenderness elicited. Extremities: One plus edema. Positive contractures. IMPRESSION: 1. Septic shock. 2. Hypothermia secondary to sepsis. 3. Neutropenia/pancytopenia. 4. Lactic acidosis. 5. Probable aspiration pneumonia. 6. Suspected cefepime adverse reaction. PLAN: Await cultures. Continue supportive measures. Hemodynamic and ventilator support. Empiric antibiotic coverage with clindamycin, Aztreonam, and STAT dose gentamycin. Patient has been given a dose of vancomycin. Prognosis is poor. Thank you for the kind referral. JAY IBRAHIM M.D. [id number]
[2018-05-10 13:27] LABS: INR 1.67 (0.83-1.09); PROTHROMBIN TIME (PATIENT) 18.9 SEC (9.7-13.0)
[2018-05-10 13:29] LABS: ACTIVATED PTT 48.7 SECONDS (25.2-36.5)
--- NOTE | 2018-05-10 13:49 | PDOC ---
*Physical Exam - Vital Signs Last Vital Signs Temp Pulse Resp BP Pulse Ox 93.3 F L 68 24 57/38 92 L 05/10/18 12:05 05/10/18 12:05 05/10/18 12:05 05/10/18 12:05 05/10/18 12:05 ED Treatment Course - LABORATORY CBC & Chemistry Diagram: 05/10/18 09:42 05/10/18 09:42 - ADDITIONAL ORDERS Additional order review: Laboratory Results 05/10/18 05/10/18 05/10/18 05:16 05:16 05:16 PT with INR 15.00 H INR 1.33 H PTT (Actin FS) 47.6 H Sodium 136 Potassium 3.5 Chloride 89 L D Carbon Dioxide 39 H D Anion Gap 8 BUN 45 H Creatinine 0.6 L Creat Clearance w eGFR > 60 Random Glucose 104 Lactic Acid 3.4 H* Calcium 8.7 Total Bilirubin 0.3 AST 48 H D ALT 82 H D Alkaline Phosphatase 95 Troponin I < 0.02 Total Protein 5.1 L Albumin 2.1 L Urine Color Urine Appearance Urine pH Ur Specific [place] Urine Protein Urine Glucose (UA) Urine Ketones Urine Blood Urine Nitrite Urine Bilirubin Urine Urobilinogen Ur Leukocyte Esterase 05/10/18 05:07 PT with INR INR PTT (Actin FS) Sodium Potassium Chloride Carbon Dioxide Anion Gap BUN Creatinine Creat Clearance w eGFR Random Glucose Lactic Acid Calcium Total Bilirubin AST ALT Alkaline Phosphatase Troponin I Total Protein Albumin Urine Color Yellow Urine Appearance Clear Urine pH 5.0 Ur Specific [place] 1.014 Urine Protein Negative Urine Glucose (UA) Negative Urine Ketones Negative Urine Blood Negative Urine Nitrite Negative Urine Bilirubin Negative Urine Urobilinogen Negative Ur Leukocyte Esterase Negative 05/10/18 05:16 RBC 3.58 L MCV 94.4 MCHC 34.7 RDW 15.6 MPV 9.7 D Neutrophils % No Result Required. Lymphocytes % No Result Required. - Medications Given in the ED: ED Medications Discontinued Medications Generic Name Dose Route Start Last Admin Trade Name Freq PRN Reason Stop Dose Admin Azithromycin 500 mg/ Dextrose 250 mls @ 250 mls/hr 05/10/18 05:59 05/10/18 06 :15 IVPB 05/10/18 06:58 250 mls/hr ONCE ONE Administration Cefepime HCl 2 gm in 50 mls @ 100 mls/hr 05/10/18 05:59 05/10/18 06:15 Maxipime 2gm Ivpb (Premix) IVPB 05/10/18 06:28 100 mls/hr ONCE ONE Administration Protocol Vancomycin HCl 1,000 mg/ 250 mls @ 166.667 mls/hr 05/10/18 05:59 05/10/18 06: 30 Dextrose IVPB 05/10/18 07:28 166.667 mls/hr ONCE ONE Administration Protocol Sodium Chloride 1,000 mls @ 75 mls/hr 05/10/18 08:45 05/10/18 09:04 Normal Saline - IV 75 mls/hr ASDIR AUNG Administration Aztreonam 1 gm/ Dextrose 50 mls @ 100 mls/hr 05/10/18 10:00 05/10/18 10:26 IVPB 100 mls/hr Q12H AUNG Administration Protocol Ketamine HCl 50 mg 05/10/18 04:21 05/10/18 04:20 Ketalar - IVPUSH 05/10/18 04:22 50 mg ONCE ONE Administration Ketamine HCl 50 mg 05/10/18 06:06 05/10/18 05:45 Ketalar - IVPUSH 05/10/18 06:07 50 mg ONCE ONE Administration Ketamine HCl 50 mg 05/10/18 06:06 05/10/18 05:45 Ketalar - IV 05/10/18 06:07 50 mg ONCE ONE Administration Sodium Chloride 1,361 ml 05/10/18 04:20 05/10/18 04:20 Normal Saline - 30 ml/kg (1361 ml) 05/10/18 04:21 1,361 ml IV Administration ONCE STA Medical Decision Making - Critical Care Time Total Critical Care Time (minutes): 300 Critical Care Statement: The care of this patient involved high complexity decision making to prevent further life threatening deterioration of the patient 's condition and/or to evaluate & treat vital organ system(s) failure or risk of failure. - Medical Decision Making 05/10/18 14:05 Pt signed out to me at 7am by Dr. Engel. 23 M with cerebral palsy, seizure disorder, spastic quadriplegia, restrictive airway disease, admitted for respiratory failure in setting of likely sepsis 2/ 2 aspiration pneumonia. Overnight, pt was treated for PNA with broad spectrum abx, resuscitated with IVF , started on external rewarming for hypothermia, and admitted to ICU under hospitalist. During my shift, pt had very labile vitals, with persistent hypotension despite pressors (Levophed @ 25ug/min). Pt's BP appeared to stabilize on Levophed gtt, but pt suddenly became bradycardic and lost pulse at approx 1PM. Pt was resuscitated per ACLS protocol for approx 30 minutes without return of spontaneous circulation. Bedside US showed cardiac standstill, with asystole on monitor. No pulse or heart sounds on exam. During resuscitation, Dr. Roth spoke with pt's mother, who requested all aggressive efforts be terminated. Pt pronounced at 1:38 PM. I spoke with pt's mother and family members at approx 5PM and explained to her pt's likely cause of . All of her questions were answered. *DC/Admit/Observation/Transfer Diagnosis at time of Disposition: Septic shock Aspiration into airway Qualifiers: Encounter type: sequela Qualified Code(s): T17.908S - Unspecified foreign body in respiratory tract, part unspecified causing other injury, sequela - Discharge Dispostion Disposition: Condition at time of disposition: - Referrals - Patient Instructions - Post Discharge Activity
[2018-05-10] MEDS ORDERED: diazePAM 2 MG TABLET GT SCH (14:00)
--- NOTE | 2018-05-10 14:06 | DS ---
Physical Exam: Patient is a 23 year old male from [facility] with a PMHx of cerebral palsy, seizure disorder, spastic quadriplegia, restrictive airway disease, constipation who was BIBEMS after his 02 was found to be hypoxic with an 02 sat of 75% on room air. As per EMS, patient's 02 saturation went up to 85% on a nonrebreather with several unsuccessful intubation and IV line attempts. Patient arrived in the ED and was found to be hypothermic at 83.6 F, hypotensive , leukopenic, thrombocytopenic. G tube suctioning was done and 1.2 L of fluids was suctioned. Patient was successfully intubated after a few attempts causing a traumatic bleeding. An IO was successfully established. Patient was given IV fluids but blood pressure still remained low. Levophed drip was started and karen huggers were placed but patient remained hypothermic and hypotensive. IV abx started. Chest X-Ray revealed bilateral infiltrates, likely representing ARDS. Patient diagnosed with Septic Shock secondary to Aspiration PNA with Hypoxic respiratory failure and ARDS secondary to Septic Shock. Throughout the hospital course, patient coded with several rounds of ACLS. Spoke to patient's mom on the phone, who is next of kin/HCP and stated to stop all aggressive measures. Time of called at 13:38 Patient's mother notified at 14:00 Security Advisor contacted and denied case by Dr. White #[id number] [facility] contacted at 14:25 and spoke to the school of nursing director Minutes to complete discharge: 45 Discharge Summary Reason For Visit: SEPTIC SHOCK ASPIRATION INTO AIRWAY Condition: - Instructions Disposition: This patient is new to me today: No Emergency Visit: Yes ED Registration Date: 05/10/18 Care time: The patient presented to the Emergency Department on the above date and was hospitalized for further evaluation of their emergent condition. Critical Care patient: Yes Total Critical Care Time (in minutes): 45 Critical Care Statement: The care of this patient involved high complexity decision making to prevent further life threatening deterioration of the patient 's condition and/or to evaluate & treat vital organ system(s) failure or risk of failure. - Discharge Referral Referred to [facility] No
--- NOTE | 2018-05-10 14:24 | PDOC ---
*Physical Exam - Vital Signs Last Vital Signs Temp Pulse Resp BP Pulse Ox 93.3 F L 68 24 57/38 92 L 05/10/18 12:05 05/10/18 12:05 05/10/18 12:05 05/10/18 12:05 05/10/18 12:05 ED Treatment Course - LABORATORY CBC & Chemistry Diagram: 05/10/18 09:42 05/10/18 09:42 - ADDITIONAL ORDERS Additional order review: Laboratory Results 05/10/18 05/10/18 05/10/18 05:16 05:16 05:16 PT with INR 15.00 H INR 1.33 H PTT (Actin FS) 47.6 H Sodium 136 Potassium 3.5 Chloride 89 L D Carbon Dioxide 39 H D Anion Gap 8 BUN 45 H Creatinine 0.6 L Creat Clearance w eGFR > 60 Random Glucose 104 Lactic Acid 3.4 H* Calcium 8.7 Total Bilirubin 0.3 AST 48 H D ALT 82 H D Alkaline Phosphatase 95 Troponin I < 0.02 Total Protein 5.1 L Albumin 2.1 L Urine Color Urine Appearance Urine pH Ur Specific [place] Urine Protein Urine Glucose (UA) Urine Ketones Urine Blood Urine Nitrite Urine Bilirubin Urine Urobilinogen Ur Leukocyte Esterase 05/10/18 05:07 PT with INR INR PTT (Actin FS) Sodium Potassium Chloride Carbon Dioxide Anion Gap BUN Creatinine Creat Clearance w eGFR Random Glucose Lactic Acid Calcium Total Bilirubin AST ALT Alkaline Phosphatase Troponin I Total Protein Albumin Urine Color Yellow Urine Appearance Clear Urine pH 5.0 Ur Specific [place] 1.014 Urine Protein Negative Urine Glucose (UA) Negative Urine Ketones Negative Urine Blood Negative Urine Nitrite Negative Urine Bilirubin Negative Urine Urobilinogen Negative Ur Leukocyte Esterase Negative 05/10/18 05:16 RBC 3.58 L MCV 94.4 MCHC 34.7 RDW 15.6 MPV 9.7 D Neutrophils % No Result Required. Lymphocytes % No Result Required. - Medications Given in the ED: ED Medications Discontinued Medications Generic Name Dose Route Start Last Admin Trade Name Freq PRN Reason Stop Dose Admin Gabapentin 800 mg 05/10/18 10:15 05/10/18 13:54 Neurontin - GT Not Given BID AUNG Gabapentin 1,200 mg 05/10/18 10:15 05/10/18 13:53 Neurontin - PO Not Given ASDIR AUNG Norepinephrine Bitartrate 4, 500 mls @ 15 mls/hr 05/10/18 05:45 05/10/18 05: 45 000 mcg/ Dextrose IV 2 mcg/min TITR AUNG 15 mls/hr Administration Protocol 2 MCG/MIN Azithromycin 500 mg/ Dextrose 250 mls @ 250 mls/hr 05/10/18 05:59 05/10/18 06 :15 IVPB 05/10/18 06:58 250 mls/hr ONCE ONE Administration Cefepime HCl 2 gm in 50 mls @ 100 mls/hr 05/10/18 05:59 05/10/18 06:15 Maxipime 2gm Ivpb (Premix) IVPB 05/10/18 06:28 100 mls/hr ONCE ONE Administration Protocol Vancomycin HCl 1,000 mg/ 250 mls @ 166.667 mls/hr 05/10/18 05:59 05/10/18 06: 30 Dextrose IVPB 05/10/18 07:28 166.667 mls/hr ONCE ONE Administration Protocol Norepinephrine Bitartrate 4, 500 mls @ 37.5 mls/hr 05/10/18 07:00 05/10/18 11 :08 000 mcg/ Dextrose IV 14.93 mcg/min TITR AUNG 112 mls/hr Titration Protocol 5 MCG/MIN Sodium Chloride 1,000 mls @ 75 mls/hr 05/10/18 08:45 05/10/18 09:04 Normal Saline - IV 75 mls/hr ASDIR AUNG Administration Aztreonam 1 gm/ Dextrose 50 mls @ 100 mls/hr 05/10/18 10:00 05/10/18 10:26 IVPB 100 mls/hr Q12H AUNG Administration Protocol Clindamycin Phosphate 600 mg in 50 mls @ 100 mls/hr 05/10/18 09:30 05/10/18 10:01 Cleocin 600 Mg Premix Ivpb - IVPB 100 mls/hr Q6H-IV AUNG Administration Protocol Epinephrine 30,000 mcg/ 250 mls @ 2.26 mls/hr 05/10/18 10:45 05/10/18 13:53 Dextrose IVPB Not Given TITR AUNG Protocol 0.1 MCG/KG/MIN Gentamicin Sulfate/Sodium Chloride 80 mg in 100 mls @ 100 mls/hr 05/10/18 11: 15 05/10/18 12:40 Garamycin 80 Mg Premixed Ivpb - IVPB 05/10/18 12:14 100 mls/hr ONCE ONE Administration Protocol Potassium Chloride 40 meq/ 1,020 mls @ 75 mls/hr 05/10/18 10:46 05/10/18 13: 52 Sodium Chloride IVPB Not Given Q13H AUNG Ketamine HCl 50 mg 05/10/18 04:21 05/10/18 04:20 Ketalar - IVPUSH 05/10/18 04:22 50 mg ONCE ONE Administration Ketamine HCl 50 mg 05/10/18 06:06 05/10/18 05:45 Ketalar - IVPUSH 05/10/18 06:07 50 mg ONCE ONE Administration Ketamine HCl 50 mg 05/10/18 06:06 05/10/18 05:45 Ketalar - IV 05/10/18 06:07 50 mg ONCE ONE Administration Lacosamide 50 mg 05/10/18 10:15 05/10/18 13:53 Vimpat Liquid - GT Not Given BID AUNG Levetiracetam 1,500 mg 05/10/18 10:15 05/10/18 13:54 Keppra Oral Solution - GT Not Given DAILY AUNG Mupirocin 1 applic 05/10/18 10:00 05/10/18 13:54 Bactroban Ointment (For Decolonization) - NS 05/15/18 09:59 Not Given BID AUNG Phenobarbital 60 mg 05/10/18 10:15 05/10/18 13:54 Phenobarbital Liquid - GT Not Given DAILY AUNG Scopolamine HBr 1 patch 05/10/18 10:15 05/10/18 13:53 Transderm-Scop - TD Not Given Q3D AUNG Sodium Chloride 1,361 ml 05/10/18 04:20 05/10/18 04:20 Normal Saline - 30 ml/kg (1361 ml) 05/10/18 04:21 1,361 ml IV Administration ONCE STA Medical Decision Making - Medical Decision Making Pt signed out to me at 7am by Dr. Guerrero 23 M with cerebral palsy, seizure disorder, spastic quadriplegia, restrictive airway disease, admitted for respiratory failure in setting of likely sepsis 2/ 2 aspiration pneumonia. Patient intubated an on 10L peep Patient found to by hypothermic, hypotensive and bradycardic. Jose Rafael mascorro placed and temperature improved, received 4mg of levophed but did not respond well. At 1:11 pm patient had no pulse and no electrical activity. Epi and 1 round of CPR started and ROSC achieved. Soon after, patient lost pulses and another 3 rounds of epi given and multiple rounds of CPR. No pulses and no electrical activity verified on monitor and ultrasound. Time of 1:38 pm. *DC/Admit/Observation/Transfer Diagnosis at time of Disposition: Septic shock Aspiration into airway Qualifiers: Encounter type: sequela Qualified Code(s): T17.908S - Unspecified foreign body in respiratory tract, part unspecified causing other injury, sequela - Discharge Dispostion Disposition: Condition at time of disposition: Critical - Referrals - Patient Instructions - Post Discharge Activity
[2018-05-10 16:09] VITALS: BP 83/39; PULSE 55; TEMP 94.5
[2018-05-10] MEDS ORDERED: VANCOMYCIN 750 MG in DEXTROSE 5%-WATER - 250 ML IVPB SCH (18:00)
[2018-05-10] MEDS ORDERED: LACTULOSE 20 GM/30 ML UDC (FOR ORAL USE ONLY) GT SCH (22:00)
[2018-05-10] MEDS ORDERED: GLYCOPYRROLATE GT SCH (22:00)
[2018-05-10] MEDS ORDERED: GLYCOPYRROLATE 1 MG TABLET GT SCH (22:00)
[2018-05-10] MEDS ORDERED: [UNRECOGNIZED DRUG - OTHER] GT SCH (22:00)
[2018-05-10] MEDS ORDERED: CHLORHEXIDINE GLUCONATE 4% CLEANSER FOR DECOLONIZATION TP SCH (22:00)
[2018-05-10] MEDS ORDERED: POLYETHYLENE GLYCOL 17 GM GT SCH (22:00)
[2018-05-11] MEDS ORDERED: LEVOTHYROXINE NA 25 MCG TABLET (FP) PO SCH (07:00)
[2018-05-11] MEDS ORDERED: PANTOPRAZOLE SODIUM 40 MG VIAL IVPUSH SCH (10:00)
[2018-05-14] MEDS ORDERED: MAGNESIUM CITRATE 300 ML BOTTLE GT SCH (10:10)
== END 2018-05-10 13:38 | disposition expired | DRG 720 ==
LOC: JER 03:37 → JERBED 06:28
PROVIDERS: ADMIT Internal Medicine; ATTEND Internal Medicine
PROC: 5A1935Z Respiratory Ventilation, Less than 24 Consecutive Hours (ICD-10-PCS; principal; 2018-05-10)
PROC: 0BH17EZ Insertion of Endotracheal Airway into Trachea, Via Natural or Artificial Opening (ICD-10-PCS; 2018-05-10)
PROC: 5A12012 Performance of Cardiac Output, Single, Manual (ICD-10-PCS; 2018-05-10)
DX: A41.9 Sepsis, unspecified organism (principal); I10 Essential (primary) hypertension; R68.0 Hypothermia, not associated with low environmental temperature; G80.9 Cerebral palsy, unspecified; J84.114 Acute interstitial pneumonitis; D61.818 Other pancytopenia; E87.2 Acidosis; J69.0 Pneumonitis due to inhalation of food and vomit; J96.01 Acute respiratory failure with hypoxia; D69.6 Thrombocytopenia, unspecified; E87.6 Hypokalemia; E03.9 Hypothyroidism, unspecified; R65.21 Severe sepsis with septic shock; D72.819 Decreased white blood cell count, unspecified; I95.9 Hypotension, unspecified; D70.9 Neutropenia, unspecified; R00.1 Bradycardia, unspecified; I44.0 Atrioventricular block, first degree; R74.0 Nonspecific elevation of levels of transaminase and lactic acid dehydrogenase [LDH]; G40.909 Epilepsy, unspecified, not intractable, without status epilepticus; K59.00 Constipation, unspecified
CPT/HCPCS: 36415; 36430; 71045-TC-FY; 80053; 81003; 82550; 83605; 83735; 84100; 84443; 84484; 85025; 85379; 85384; 85610; 85730; 86850; 86900; 86901; 87040; 87086; 87186; 93005; 93010; 94003; 99285-25; J7030; P9034